=== PATIENT | female | born 1945 | race Caucasian/White ===

== ENCOUNTER 2020-08-13 00:29 | Inpatient (IN) | payer MEDICARE, OTHER, SELFPAY ==
[2020-08-13] VITALS (19 sets, daily range): BP systolic 115–136; BP diastolic 52–60; PULSE 71–91; RESP 15–18; TEMP 36.7–38.3; O2SAT 85–98; BMI 28.5; BMI 28.1
--- NOTE | 2020-08-13 00:45 | ED.RN ---
dr hendricks notified of pt sx on triage.
--- NOTE | 2020-08-13 00:51 | EKG12_ITS ---
Test Reason : SYNCOPE Blood Pressure : / mmHG Vent. Rate : 088 BPM Atrial Rate : 088 BPM P-R Int : 188 ms QRS Dur : 082 ms QT Int : 348 ms P-R-T Axes : 044 051 052 degrees QTc Int : 421 ms Normal sinus rhythm Normal ECG Confirmed by LISBETH HECTOR, TRELL ([id number]), video news editor GAVINO ZEPEDA ([id number]) on 08/18/2020 9:45:55 A M Referred By: JUANITA Confirmed By:JERILYN BOB MD
--- NOTE | 2020-08-13 00:52 | ED.VIS.GEN ---
History of Present Illness Chief Complaint: Syncope Informant: Patient Narrative: Patient with past medical history of hypertension cluster headaches presents with a syncopal episode. She stated she has been having some discomfort in her left trapezius paracervical neck since yesterday. She has been using Tylenol and also [place]. She took [place] tonight and felt nauseous and had dry heaves. She had lightheadedness and passed out in the bathroom for short period time lowered to the ground without injury to her head. She has had some dry heaves since. She is had a mild runny nose and cold symptoms for the last week including cough. No coronavirus testing or exposures. Denies any fevers or chills. She does feel weak. Chronic medical problems are only hypertension and cluster headaches. She has never had syncope before. Her only complaint right now is her left-sided neck discomfort she feels like aching throbbing. Past Medical History - Allergies and Home Meds Allergies/Adverse Reactions: Allergies No Known Allergies Allergy (Verified 08/13/20 00:29) Primary Care Physician: Sarah Rodríguez,Out of [NON-STAFF] - Prior records reviewed: Yes Past Medical History: - - Hypertension, cluster headaches Surgical History: - - Reviewed Lives: Spouse/ Significant Other Smoking Status: Former smoker Alcohol: None Drugs: None Review of Systems General: Denies: Chills, Fever, Sweats Eyes: Denies: Visual changes - bilaterally, Diplopia ENT: Denies: Rhinorrhea, Sore throat Cardiovascular: Denies: Chest pain, Palpitations Respiratory: Reports: Cough. Denies: Dyspnea, Dyspnea on exertion Gastrointestinal: Denies: Abdominal pain, Nausea, Vomiting, Diarrhea, Melena, Hematochezia Genitourinary: Denies: Dysuria, Hematuria, Frequency Musculoskeletal: Reports: Neck pain. Denies: Back pain, Extremity Pain Skin: Denies: Rash, Wounds Neurological: Reports: Weakness. Denies: Headache, Numbness Physical Exam Vital Signs/Narrative: Vital Signs Temp Pulse Resp BP Pulse Ox 08/13/20 00:30 100.4 F H 91 15 136/59 H 93 General: Well nourished, Well developed, No Acute Distress Head: Normocephalic, Atraumatic Eyes: Perrl, EOMI ENT: Moist mucous membranes, No rhinorrhea Neck: Supple, - - Mild pinpoint tenderness left mid paracervical. No spasm. Negative Brudzinski's or Kernig's. Normal range of motion of the neck without meningeal signs Cardiovascular: Regular rate, Regular rhythm, No murmurs Respiratory: No distress, CTA bilaterally, Chest nontender Abdomen: Soft, Nontender, Nondistended, Normal bowel sounds Back: Nontender, Normal Inspection Extremities: Nontender, No edema Skin: Normal color, No rash Neurological: Alert, Oriented x3, Cranial nerves II-XII grossly intact, Normal Strength, Normal Sensation Psychological: Normal affect, Normal Mood Diagnostic/Tx/Re-eval - Medical Decision Making Lab work and EKG obtained. Chest x-ray obtained. Patient given Zofran for nausea Tylenol for fever. Patient felt better after treatment. Pulse ox is 85% on room air. EKG showed normal sinus rhythm. Chest x-ray my interpretation shows shows interstitial pneumonitis consistent with coronavirus. Positive coronavirus testing antigen in the emergency department. Patient needs oxygen to keep her oxygen sats above 85%. She is not in respiratory distress on oxygen. EKG showed a rate of 88. No ischemic findings urinalysis shows a mixed picture with white cells epithelials and 2+ bacteria. Discussed with the hospitalist. Will await a urine culture result as this is likely contamination. We will hold off on antibiotics when she does have coronavirus. ED Disposition - Plan for ED Patient: Disposition: Acute Care Hospital [facility] Diagnosis: Coronavirus infection, Hypoxia, Syncope, Nausea and vomiting
[2020-08-13] MEDS: Ondansetron 4 MG/2 ML Vial IV (01:04)
[2020-08-13] MEDS: Acetaminophen 325 MG Tablet 650 MG PO ×2 (01:04→17:32)
[2020-08-13 01:20] LABS: Mucous, Urine 0 SEEN /hpf (<or=2+)
--- NOTE | 2020-08-13 01:20 | RAD_ITS ---
STUDY: X-RAY CHEST REASON FOR EXAM: Female, 75 years old. SYNCOPAL EPISODE THIS PM, NECK PAINS, CHILLS, N/v, fever TECHNIQUE: Single AP portable view of the chest. COMPARISON: None. FINDINGS: There are superimposed monitor leads. Mild left suprahilar and perihilar, right basilar hazy airspace opacification. Component of minimal airspace disease in the right upper lobe just superior to the minor fissure suspected. There is no demonstrated pleural abnormality. Normal size heart. Normal mediastinum and francine. Normal visualized pulmonary arteries. There is atherosclerotic calcification of the aortic arch with tortuosity. Age-appropriate thoracic spine. Normal visualized ribs, clavicles, and shoulders. There is no demonstrated abnormality of the visualized soft tissue structures of the upper abdomen. RAD/Chest 1 View (Portable) IMPRESSION: Bilateral hazy airspace disease possible pneumonia. Atypical or viral pneumonia possible such as covid 19. Follow-up examination to resolution recommended. Electronically Signed: Dionne Lockhart MD at 1:49 EST , Service support ,
[2020-08-13 01:22] LABS: ALB/GLOB Ratio 0.9 RATIO (0.9-2.4); AST(SGOT) 27 U/L (15-37); Alanine Aminotransfer ALT/SGPT 28 U/L (13-56); Albumin, Serum 3.4 g/dL (3.2-5.0); Alkaline Phosphatase 105 U/L (45-117); Anion Gap 7 (5-15); BUN 13 mg/dL (7-18); Chloride 104 mmol/L (98-107); Creatinine, Serum 0.81 mg/dL (0.55-1.02); EST Glomerular Filtration Rate 74 mL/min (>60); Est Glom Filt Rate - Afr Amer 89 mL/min (>60); Estimated Creatinine Clearance 60.15 ml/min; Globulin 3.6 g/dL (2.2-4.2); Glucose 130 mg/dL (74-106); Potassium 3.6 mmol/L (3.5-5.1); Sodium Level 136 mmol/L (136-145)
[2020-08-13 01:32] LABS: Color, Urine Yellow (Yellow); Glucose, Dipstick NEGATIVE (Normal); Ketone-Dipstick Negative (Negative); Leukocyte Esterase-Dipstick 500 /ul (Negative); Nitrite-Dipstick Negative (Negative); Occult Blood-Urine 10 /ul (Negative); Protein-Dipstick 30 mg/dl (Negative); Urine Bilirubin Dipstick Negative (Negative); Urine Clarity Clear (Clear); Urine Urobilinogen Normal (Normal)
[2020-08-13 01:33] LABS: Red Blood Cells-Urine 0-5 SEEN /hpf (0-5); Squamous Epithelial Cells - UA 5-10 SEEN /hpf (5-10); White Blood Cells 5-10 SEEN /hpf (0-5)
[2020-08-13 01:34] LABS: Bacteria 2+ /hpf (None Seen); Transitional Epithelial - Ur 0-5 SEEN /hpf (0-5)
[2020-08-13 01:35] LABS: Amorphous Sediment RARE; Fine Granular Cast- Urine 0-5 SEEN /lpf (0-5)
--- NOTE | 2020-08-13 02:55 | HP.PCM_ITS ---
Problem List (1) Coronavirus infection Status: Acute (2) Hypoxia Status: Acute (3) Syncope Status: Acute History of Present Illness Date of Admission: 08/13/20 Chief Complaint: Syncope The patient is a 75 year old F with a significant history of hypertension; GERD; and hyperlipidemia who presents to the emergency department with syncope. Her symptoms started few hours before presentation. On 08/12/2020 patient had progressively worsening left posterior neck pain all day. She described the pain as muscle spasms. She took 2 tablets of a previously prescribed Macclenny. The Macclenny was previously prescribed for hip pain. After 2 and half hours time of taking the 2 tablets of [place] her pain was still not getting better. She went to the bathroom to get some water to take an additional dose of the [place]cl[place]. While at the bathroom she had nausea and dry heaves. She lost consciousness and she was about to fall. However her who was also present at the bathroom caught her and lowered patient to the floor. She report that 3 days ago; and on the day before presentation she had chills. Also her home temperature was about 99.5 Fahrenheit. She denies shortness of breath. She has a wet cough but she is unable to expectorate her sputum. She has poor appetite and she feels extremely fatigued. She denies lost of taste or lost of smell. Together with her patient had cold-like symptoms a few days ago which has resolved. Also she had all day nasal drainage a few days and that has also resolved. 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 She denies known contact with anybody with COVID-19 virus. She reported she and her has been extremely careful in avoiding the COVID-19 virus. Past Medical History Medical History: Medical History (Last Reviewed 08/13/20 @ 03:[address] Favio Coffman MD) GERD (gastroesophageal reflux disease) K21.9 Hyperlipidemia E78.5 Hypertension I10 Allergies No Known Allergies Allergy (Verified 08/13/20 00:29) Home Medications: Ambulatory Orders Medication Instructions Recorded Atorvastatin Calcium mg PO 08/13/20 Hydrocodone/Acetaminophen 1 - 2 ea PO Q6H PRN 08/13/20 [Hydrocodon-Acetaminophen 5-325] Metoprolol(XL)Succ [Toprol Xl 45 mg PO DAILY 08/13/20 (Beta Naz)] Omeprazole [Prilosec] 10 mg PO DAILY 08/13/20 Surgical History: - - Right hip replacement Lives: Spouse/ Significant Other Smoking Status: Former smoker Tobacco Use: Cigarettes Alcohol: None Drugs: None - *Family History Maternal History Items: Heart Disease, Pulmonary Disease Paternal History Items: Heart Disease Review of Systems Constitutional: Reports: Chills, Fever, Fatigue. Denies: Weight Change HEENT: Reports: Sinus Drainage. Denies: Head Aches Cardiovascular: Reports: Syncope. Denies: Chest Pain, Palpitations Respiratory: Reports: Cough, Sputum production. Denies: Shortness of breath at rest Gastrointestinal: Reports: Constipation. Denies: Abdominal Pain, Nausea, Vomiting Genitourinary: Denies: Dysuria Musculoskeletal: Denies: Joint Pain, Joint Tenderness Skin: Denies: Rash, Wounds Neurological: Denies: Numbness, Tingling, Focal weakness Psychiatric: Denies: Anxiety, Depression, Homicidal Ideations, Suicidal Ideations Hematologic/ Lymphatic: Denies: Easy Bruising, Easy Bleeding VTE Information - Inpt Only VTE Present on Admission: No VTE Mechan Device Prophylaxis: None VTE Pharm Prophylaxis ordered?: Yes Patient Problems: Active and Suspected Problems (Last Reviewed 08/13/20 @ 03:[address] Favio Coffman MD) Coronavirus infection (Acute) Hypoxia (Acute) Syncope (Acute) - Physical Exam Vitals/I&O's: Vital Signs Temp Pulse Resp BP Pulse Ox 100.4 F H 88 16 115/52 L 98 08/13/20 00:30 08/13/20 01:45 08/13/20 01:45 08/13/20 01:45 08/13/20 01:45 Oxygen Flow Rate (L/min) 2 Oxygen Delivery Method Nasal Cannula Weight: 82.8 kg Body Mass Index (BMI) 28.5 General: Alert, Oriented x3, Cooperative HEENT: Atraumatic, PERRLA, EOMI, Normocephalic Neck: Supple, No JVD, Negative Carotid Bruits Lungs: No rhonchi, No wheeze, No rales, Diminished Cardiovascular: Regular rate, Regular Rhythm, Normal S1, Normal S2, No murmurs Abdomen: Bowel Sounds Present, Soft, Non Tender Extremities: No edema, Capillary Refill Less than 3 Seconds Skin: No rashes, No breakdown Musculoskeletal: No Tenderness to Palpation of Joints or Extremities Neurological: Cranial nerves II-XII grossly intact Psych/Mental Status: Normal Affect, Appropriate Microbiology Past 72 Hours 08/13/20 01:00 Mucosa - Nose SARS-CoV-2 Antigen (Rapid) - Final SARS-CoV-2 (COVID 19) Laboratory Results 08/13/20 00:40: Sodium 136, Potassium 3.6, Chloride 104, Carbon Dioxide 25.0, Anion Gap 7, BUN 13, Creatinine 0.81, Estim Creat Clear Calc 60.15, Est GFR (MDRD) Af Amer 89, Est GFR (MDRD) Non-Af 74, BUN/Creatinine Ratio 16.0, Glucose 130 H, Calcium 8.0 L, Total Bilirubin 0.40, AST 27, ALT 28, Alkaline Phosphatase 105, Troponin I < 0.015, Total Protein 7.0, Albumin 3.4, Globulin 3.6, Albumin/Globulin Ratio 0.9 08/13/20 01:15: Urine Color Yellow, Urine Clarity Clear, Urine pH 5.0, Ur Specific Brothers 1.020, Urine Protein 30 H, Urine Glucose (UA) NEGATIVE, Urine Ketones Negative, Urine Occult Blood 10 H, Urine Nitrite Negative, Urine Bilirubin Negative, Urine Urobilinogen Normal, Ur Leukocyte Esterase 500 H, Urine RBC 0-5 SEEN, Urine WBC 5-10 SEEN, Ur Squamous Epith Cells 5-10 SEEN, Ur Transition Epith Cell 0-5 SEEN, Amorphous Sediment RARE, Urine Bacteria 2+, Fine Granular Casts 0-5 SEEN, Urine Mucus 0 SEEN Assessment/Plan All Active Problems (Last Reviewed 08/13/20 @ 03:[address] Favio Coffman MD) Coronavirus infection (Acute) Hypoxia (Acute) Syncope (Acute) The patient is a 75 year old F with a significant history of hypertension; gout; and hyperlipidemia who presents emergency department with syncope and was found to have a positive. COVID-19 antigen test sent and with radiographic evidence of bilateral hazy airspace disease; and with hypoxia requiring supplemental oxygenation. Acute hypoxemic respiratory insufficiency secondary to SARS- COV 2 Her oxygen saturation was 85% % on room air at the emergency department. Patient required 2L of nasal cannula oxygen. Oxygen supplementation continued. Her temperature at the emergency department was 100.4 Fahrenheit Rapid coronavirus antigen test at the ED was positive. Impression of chest x-ray by radiologist: Bilateral hazy airspace disease possible pneumonia. Atypical or viral pneumonia possible such as COVID-19. Actual chest x-ray image was independently interpreted. I agree radiologist interpretation. Dimer was ordered Procalcitonin was ordered Discussed with patient that dexamethasone p.o. will be ordered and also she will be started on remdesivir. Her liver enzyme is normal. Creatinine clearance is normal. Discussed adverse effects of medication with patient. Tylenol for fever Patient does not think that she would need cough medicine at this time. Syncope EKG showed sinus rhythm with no ST or T wave abnormality. Likely secondary to COVID-19. Treatment as above. Abnormal urinalysis Patient with no urinary symptoms. However her urinary protein and leukocyte Estrace was elevated. Urine bacteria of 2+ but with significant squamous epithelial cells. Urine culture ordered at emergency department; follow. No antibiotics for now. Neck muscle spasms Flexeril as needed ordered. Discussed with patient that Flexeril can make her lethargic. Hold Macclenny at this time. Of note patient tried ice packs and heating pad at home with no relief. Chronic constipation Reports recent colonoscopy with a possible diagnosis of Crohn's disease even though she has constipation and notes diarrhea. Patient takes multiple bowel regimen at home which includes schedule Metamucil; other bowel regimen; and as needed MiraLAX. Shared decision to continue home Metamucil; as needed MiraLAX; and as needed Senokot-S ordered. Hypertension Blood pressure is stable in regards to her age Metoprolol continue Trend blood pressure and adjust blood pressure medications. GERD PPI continued. DVT prophylaxis Subcutaneous Lovenox. Inpatient E&M: 17495 Init Hosp L3
[2020-08-13 03:58] LABS: D-Dimer Quantitative (DVT/PE) 0.47 FEU/ug/m (0.27-0.49)
[2020-08-13 04:16] LABS: Procalcitonin < 0.04 ng/mL (0.00-0.09)
[2020-08-13] MEDS: dexAMETHasone 4 MG Tablet 6 MG PO (04:21)
[2020-08-13] MEDS: 0.9% Saline Lock 10 ML Syringe IV (04:24)
--- NOTE | 2020-08-13 07:28 | PCM.HOSP.N ---
Hospitalist Note Seen and examined The patient is a 75 year old F with a significant history of hypertension; gout; and hyperlipidemia who presents emergency department with syncope and was found to have a positive. COVID-19 antigen test sent and with radiographic evidence of bilateral hazy airspace disease; and with hypoxia requiring supplemental oxygenation. Patient states he took 2 tablets of [place] and after 2 and half hours he passed out. She had similar instance of syncope about 5 years ago after she had a flu infection. She states he has loss of taste and smell. Denies fall with her caught her. She had mild fever and chills 3 days ago along with cough. Lungs: Air entry diminished bilaterally. No crepitation or rhonchi Heart: S1-S2 regular. No murmur gallop or rub. Extremities: No ankle edema. 1. COVID-19 infection with acute hypoxic respiratory insufficiency Discussed with ID. Started on remdesivir. Chest x-ray shows bilateral hazy airspace disease possible viral pneumonia. Procalcitonin negative. LDH and CRP are elevated. Troponin negative. Lactic acid normal. 2. Syncope probably secondary to infection/COVID-19 pneumonia: Patient does not have any chronic cardiopulmonary disease. Patient quit smoking about 30 years ago. EKG sinus rhythm with no significant ST-T wave abnormality. Orthostatic vitals are negative for postural hypotension or tachycardia. 3.: Patient denies lower related symptoms including dysuria. LE 500. WBC 5-10 cells. Asymptomatic bacteriuria. No indication for antibiotic.
--- NOTE | 2020-08-13 07:34 | PCS.PANDOC ---
PANDEMIC DOCUMENTATION INITIATED: Date: 08/13/20 Time: 0300
[2020-08-13] MEDS: Enoxaparin 30 MG/0.3 ML Syringe SC ×2 (09:11→23:06)
[2020-08-13] MEDS: Psyllium 1 PACKET PO (09:11)
[2020-08-13] MEDS: Pantoprazole Sodium 40 MG Tablet PO (09:11)
[2020-08-13] MEDS: Metoprolol(XL)Succ 50 MG Tablet PO (09:11)
[2020-08-13] MEDS: cycloBENZAPRine HCl 5 MG TABLET PO ×2 (10:36→23:59)
[2020-08-13 11:10] LABS: LDH 334 U/L (84-246); Magnesium 2.1 mg/dL (1.6-2.6)
[2020-08-13 11:24] LABS: BNP,B-Type NATRIURETIC PEPTIDE 22.6 pg/mL (0-100)
--- NOTE | 2020-08-13 11:25 | CASEMGMT ---
SHI WILLIAM attempted to call patient in room for initial transition planning/care coordination assessment, no answer, tried patient's cell phone and Timbo answered. SHI WILLIAM introduced self and role at [facility]. Timbo willing to participate in assessment and is able to answer all questions appropriately. Care providers, pharmacy, and demographics verified. Timbo wishes to discharge home, denies need for home health at this time. states he has no further needs or concerns at this time. CM to follow for discharge planning needs that may arise. PCP: Arabella Veras Specialists: Rukhsana Campos, paradise Preferred [facility]acy: [facility] Insurance: MCR, Prescription Benefit: yes Living Will/HPOA: yes, Timbo Terry LNOK: Living Arrangements: Patient lives with in a 2 story home with bed and bath on first floor. Patient independent at home. Transportation: DME/HHC: Patient has shower chair, cane, walker, raised toilet, and grab bars at home. No previous HHC. No preference for DME Disposition Plan: Patient to discharge home with family support and follow-up plans in place. Hilda CASSIDY, RN, CM
[2020-08-13 11:48] LABS: International Normalized Ratio 1.1; Prothrombin Time (Protime)PT. 13.3 SECONDS (11.7-14.9)
[2020-08-13 11:52] LABS: Fibrinogen 450 mg/dl (203-444); Lactic Acid 1.8 mmol/L (0.4-1.9)
--- NOTE | 2020-08-13 12:04 | CASEMGMT ---
Green sheet on chart for possible home oxygen need at this time. Oseas OSULLIVAN CM
[2020-08-13] MEDS: Lactated Ringers 1,000 ML 100 ML IV ×2 (12:44→23:06)
--- NOTE | 2020-08-13 16:22 | CON.PCM_ITS ---
Problem List (1) Coronavirus infection Status: Acute Reason for Consult: covid Consulted by: Dr. Rios History of Present Illness: The patient is a 75 year old F with sx starting around 08/11 with cough, congestion, then 08/13 had severe chills, then neck pain, change in taste, weakness, fatigue, not feeling well. Was in bathroom, had syncope, caught by her . Taken to ED, covid (+), started on dex, remdesivir. with recent URI, otherwise feeling ok. Full ROS performed and neg except as noted above. - Medical History Surgical History: reviewed Allergies/Adverse Reactions: Allergies No Known Allergies Allergy (Verified 08/13/20 00:29) Home Medications: Ambulatory Orders Medication Instructions Recorded Atorvastatin Calcium 40 mg PO DAILY 08/13/20 Hydrocodone/Acetaminophen 1 - 2 ea PO Q6H PRN 08/13/20 [Hydrocodon-Acetaminophen 5-325] Metoprolol(XL)Succ [Toprol Xl 45 mg PO DAILY 08/13/20 (Beta Naz)] Omeprazole [Prilosec] 10 mg PO DAILY 08/13/20 - Social History Lives: with Tobacco Use: non-smoker Vital Signs Temp Pulse Resp BP Pulse Ox 98.4 F 91 18 129/55 H 96 08/13/20 12:45 08/13/20 14:59 08/13/20 12:45 08/13/20 12:45 08/13/20 12:45 Oxygen Flow Rate (L/min) 2 Oxygen Delivery Method Room Air Weight: 81.5 kg Body Mass Index (BMI) 28.1 Orthostatic Vital Signs Start: 08/13/20 12:37 Freq: q24h Status: Active Protocol: Activity Type Activity Date Activity User E-Sign Co-Sign Detail Recorded Client Recorded Date Recorded By Document 08/13/20 12:37 AMG [id number] 08/13/20 12:44 AMG 08/13/20 12:37 Orthostatic Vitals Standing -Blood Pressure (90/60-120/80) 130/60 H -Extremity Use Right Arm -Pulse Rate (60-100) 88 Sitting -Blood Pressure (90/60-120/80) 129/55 H -Extremity Use Right Arm -Pulse Rate (60-100) 83 Lying -Blood Pressure (90/60-120/80) 126/57 H -Extremity Use Right Arm -Pulse Rate (60-100) 77 Microbiology Past 72 Hours 08/13/20 01:00 SARS-CoV-2 Antigen (Rapid) - Final Mucosa - Nose SARS-CoV-2 (COVID 19) Laboratory Tests Past 24 Hrs 08/13/20 08/13/20 08/13/20 00:40 00:40 00:40 PT INR Fibrinogen D-Dimer Quant (PE/DVT) 0.47 Sodium 136 Potassium 3.6 Chloride 104 Carbon Dioxide 25.0 Anion Gap 7 BUN 13 Creatinine 0.81 Estim Creat Clear Calc 60.15 Est GFR (MDRD) Af Amer 89 Est GFR (MDRD) Non-Af 74 BUN/Creatinine Ratio 16.0 Glucose 130 H Lactic Acid Calcium 8.0 L Magnesium Total Bilirubin 0.40 AST 27 ALT 28 Alkaline Phosphatase 105 Lactate Dehydrogenase Troponin I < 0.015 C-React Prot Ext Range B-Natriuretic Peptide Total Protein 7.0 Albumin 3.4 Globulin 3.6 Albumin/Globulin Ratio 0.9 Procalcitonin < 0.04 Urine Color Urine Clarity Urine pH Ur Specific [place] Urine Protein Urine Glucose (UA) Urine Ketones Urine Occult Blood Urine Nitrite Urine Bilirubin Urine Urobilinogen Ur Leukocyte Esterase Urine RBC Urine WBC Ur Squamous Epith Cells Ur Transition Epith Cell Amorphous Sediment Urine Bacteria Fine Granular Casts Urine Mucus 08/13/20 08/13/20 08/13/20 00:40 00:40 01:15 PT INR Fibrinogen D-Dimer Quant (PE/DVT) Sodium Potassium Chloride Carbon Dioxide Anion Gap BUN Creatinine Estim Creat Clear Calc Est GFR (MDRD) Af Amer Est GFR (MDRD) Non-Af BUN/Creatinine Ratio Glucose Lactic Acid Calcium Magnesium 2.1 Total Bilirubin AST ALT Alkaline Phosphatase Lactate Dehydrogenase 334 H Troponin I C-React Prot Ext Range 43.10 H B-Natriuretic Peptide 22.6 Total Protein Albumin Globulin Albumin/Globulin Ratio Procalcitonin Urine Color Yellow Urine Clarity Clear Urine pH 5.0 Ur Specific [place] 1.020 Urine Protein 30 H Urine Glucose (UA) NEGATIVE Urine Ketones Negative Urine Occult Blood 10 H Urine Nitrite Negative Urine Bilirubin Negative Urine Urobilinogen Normal Ur Leukocyte Esterase 500 H Urine RBC 0-5 SEEN Urine WBC 5-10 SEEN Ur Squamous Epith Cells 5-10 SEEN Ur Transition Epith Cell 0-5 SEEN Amorphous Sediment RARE Urine Bacteria 2+ Fine Granular Casts 0-5 SEEN Urine Mucus 0 SEEN 08/13/20 08/13/20 11:20 11:20 PT 13.3 INR 1.1 Fibrinogen 450 H D-Dimer Quant (PE/DVT) Sodium Potassium Chloride Carbon Dioxide Anion Gap BUN Creatinine Estim Creat Clear Calc Est GFR (MDRD) Af Amer Est GFR (MDRD) Non-Af BUN/Creatinine Ratio Glucose Lactic Acid 1.8 Calcium Magnesium Total Bilirubin AST ALT Alkaline Phosphatase Lactate Dehydrogenase Troponin I C-React Prot Ext Range B-Natriuretic Peptide Total Protein Albumin Globulin Albumin/Globulin Ratio Procalcitonin Urine Color Urine Clarity Urine pH Ur Specific [place] Urine Protein Urine Glucose (UA) Urine Ketones Urine Occult Blood Urine Nitrite Urine Bilirubin Urine Urobilinogen Ur Leukocyte Esterase Urine RBC Urine WBC Ur Squamous Epith Cells Ur Transition Epith Cell Amorphous Sediment Urine Bacteria Fine Granular Casts Urine Mucus - Other Studies Radiology: [] reviewed Other Studies: [] Route of nutrition/ use of supplements: [] Nutritional Intake: [] IV Site: [] Lake Catheter: [] - Physical Exam General: Alert, Oriented x3, Cooperative, No apparent distress HEENT: Atraumatic, PERRLA, EOMI Neck: Supple, No Nodes Lungs: Diminished Cardiovascular: Regular rate, Regular Rhythm Abdomen: Soft, Non Tender, Non-Distended Extremities: No edema Skin: No rashes IV Site: Peripheral, without redness Musculoskeletal: No Tenderness to Palpation of Joints or Extremities Neurological: Cranial nerves II-XII grossly intact - Assessment/Plan Antibiotics: [] Assessment/Plan: [] Active and Suspected Problems (Last Reviewed 08/13/20 @ 03:[address] Favio Coffman MD) Coronavirus infection (Acute) Hypoxia (Acute) Syncope (Acute) covid with hypoxia - on dex, remdesivir, lovenox 30mg bid. D-dimer was normal. Sx started approx 08/11. should quarantine and be tested. Will follow, thank you
[2020-08-13] MEDS: MELATONIN 3 MG TABLET PO (23:59)
[2020-08-14] VITALS (13 sets, daily range): BP systolic 110–118; BP diastolic 51–56; PULSE 51–87; RESP 15–18; TEMP 36.6–37.2; O2SAT 92–96
[2020-08-14 07:08] LABS: Hematocrit 34.4 % (37-47); Hemoglobin 11.1 g/dL (12.0-15.0); Mean Corp Hgb Conc 32.3 g/dL (32-36); Mean Corpuscular Hgb 28.9 pg (27.0-32.0); Mean Corpuscular Volume 89.6 fL (81-99); Mean Platelet Vol. 10.1 fl (6.2-12.0); Platelet Count 123 K/mm3 (150-450); RBC Distribution Width CV 12.8 % (11.6-14.6); Red Blood Count 3.84 M/mm3 (4.2-5.4); White Blood Count 3.8 K/mm3 (4.4-11.0)
[2020-08-14 07:28] LABS: ALB/GLOB Ratio 0.9 RATIO (0.9-2.4); AST(SGOT) 19 U/L (15-37); Alanine Aminotransfer ALT/SGPT 22 U/L (13-56); Albumin, Serum 2.8 g/dL (3.2-5.0); Alkaline Phosphatase 79 U/L (45-117); Anion Gap 5 (5-15); BUN 16 mg/dL (7-18); BUN/Creat Ratio 22.3 RATIO (10-20); Calcium,Total 7.7 mg/dL (8.5-10.1); Chloride 106 mmol/L (98-107); Creatinine, Serum 0.72 mg/dL (0.55-1.02); EST Glomerular Filtration Rate 85 mL/min (>60); Est Glom Filt Rate - Afr Amer 103 mL/min (>60); Estimated Creatinine Clearance 48.72 ml/min; Globulin 3.1 g/dL (2.2-4.2); Glucose 82 mg/dL (74-106); Potassium 3.3 mmol/L (3.5-5.1); Protein, Total 5.9 g/dL (6.4-8.2); Sodium Level 140 mmol/L (136-145)
[2020-08-14] MEDS: Metoprolol(XL)Succ 50 MG Tablet PO (09:19)
[2020-08-14] MEDS: Pantoprazole Sodium 40 MG Tablet PO (09:19)
[2020-08-14] MEDS: Enoxaparin 30 MG/0.3 ML Syringe SC ×2 (09:19→23:23)
[2020-08-14] MEDS: Acetaminophen 325 MG Tablet 650 MG PO ×3 (09:20→23:23)
[2020-08-14] MEDS: dexAMETHasone 4 MG Tablet 6 MG PO (09:21)
[2020-08-14] MEDS: Albuterol Sulfate 8 gm Inhaler (60 puffs) 2 PUFF INHALATION (09:22)
[2020-08-14] MEDS: Psyllium 1 PACKET PO (09:22)
--- NOTE | 2020-08-14 14:59 | PN_ITS ---
Patient Problems: Active and Suspected Problems (Last Reviewed 08/13/20 @ 03:[address] Favio Coffman MD) Coronavirus infection (Acute) Hypoxia (Acute) Syncope (Acute) Reason for Visit: Follow-up for COVID-19 infection along with heartburn, nausea. Objective: Patient complain of nausea but no vomiting. Mild heartburn. Her main complaint is neck pain mainly left-sided from mid cervical region with radiation to left shoulder. Never had MRI or evaluation by spine surgeon in the past. Physical exam General: Alert, Oriented x3, Cooperative HEENT: Atraumatic, PERRLA, EOMI, Normocephalic Oral: No Gingival or Mucosal Lesions/ Ulcerations Neck: Mild tenderness and stiffness in cervical spine on left side. No JVD, Negative Carotid Bruits Lungs: Air entry equal in bilateral lung bases. No crepitation/rhonchi. No hypoxia or tachypnea Cardiovascular: Regular rate, Regular Rhythm, Normal S1, Normal S2, No murmurs Abdomen: Bowel Sounds Present, Soft, Non Tender, Non-Distended : No renal angle tenderness. No suprapubic tenderness. Extremities: No edema, Capillary Refill Less than 3 Seconds Skin: No rashes, No breakdown Musculoskeletal: No Tenderness to Palpation of Joints or Extremities Neurological: Cranial nerves II-XII grossly intact, Deep Tendon Reflexes 2+/4 and Symmetrical, Neuro grossly intact Psych/Mental Status: Normal Affect, Appropriate. Vitals/I&O's: Vital Signs Temp Pulse Resp BP Pulse Ox 97.9 F 67 17 116/56 L 94 08/14/20 14:56 08/14/20 14:56 08/14/20 14:56 08/14/20 14:56 08/14/20 14:56 Oxygen Flow Rate (L/min) 2 Oxygen Delivery Method Room Air Weight: 179 lb 10.828 oz Body Mass Index (BMI) 28.1 Orthostatic Vital Signs Start: 08/13/20 12:37 Freq: q24h Status: Active Protocol: Activity Type Activity Date Activity User E-Sign Co-Sign Detail Recorded Client Recorded Date Recorded By Document 08/13/20 12:37 AMG [id number] 08/13/20 12:44 AMG 08/13/20 12:37 Orthostatic Vitals Standing -Blood Pressure (90/60-120/80) 130/60 H -Extremity Use Right Arm -Pulse Rate (60-100) 88 Sitting -Blood Pressure (90/60-120/80) 129/55 H -Extremity Use Right Arm -Pulse Rate (60-100) 83 Lying -Blood Pressure (90/60-120/80) 126/57 H -Extremity Use Right Arm -Pulse Rate (60-100) 77 Intake and Output for Last 24 Hours 08/12/20 08/13/20 08/14/20 23:59 23:59 23:59 Intake Total 2590 / 2740 2170 / 2170 Balance 2590 / 2740 2170 / 2170 Microbiology Past 72 Hours 08/13/20 16:00 Urine, Clean Catch Urine Culture - Preliminary Streptococcus group B 08/13/20 01:00 Mucosa - Nose SARS-CoV-2 Antigen (Rapid) - Final SARS-CoV-2 (COVID 19) Laboratory Results 08/14/20 06:22: WBC 3.8 L, RBC 3.84 L, Hgb 11.1 L, Hct 34.4 L, MCV 89.6, MCH 28.9, MCHC 32.3, RDW Std Deviation 42.0, RDW Coeff of [place] 12.8, Plt Count 123 L, MPV 10.1 08/14/20 06:22: Sodium 140, Potassium 3.3 L, Chloride 106, Carbon Dioxide 29.0, Anion Gap 5, BUN 16, Creatinine 0.72, Estim Creat Clear Calc 48.72, Est GFR (MDRD) Af Amer 103, Est GFR (MDRD) Non-Af 85, BUN/Creatinine Ratio 22.3 H, Glucose 82, Calcium 7.7 L, Total Bilirubin 0.30, AST 19, ALT 22, Alkaline Phosphatase 79, Total Protein 5.9 L, Albumin 2.8 L, Globulin 3.1, Albumin/Globulin Ratio 0.9 Current Medications Acetaminophen (Acetaminophen 325 Mg Tablet) 650 mg PO Q6H PRN PRN PRN Reason: Pain Score 1-10/Temp > 100.7 F Last Admin: 08/14/20 09:20 Dose: 650 mg Documented by: Albuterol Sulfate (Albuterol Sulfate 8 Gm Inhaler (60 Puffs)) 2 puff INHALATION Q4H PRN PRN PRN Reason: SHORTNESS OF BREATH Last Admin: 08/14/20 09:22 Dose: 2 puff Documented by: Cyclobenzaprine HCl (Cyclobenzaprine Hcl 5 Mg Tablet) 5 mg PO TID PRN PRN PRN Reason: Neck muscle spasm Last Admin: 08/13/20 23:59 Dose: 5 mg Documented by: Dexamethasone (Dexamethasone 4 Mg Tablet) 6 mg PO DAILY [facility] Stop: 08/21/20 10:01 Last Admin: 08/14/20 09:21 Dose: 6 mg Documented by: Enoxaparin Sodium (Enoxaparin 30 Mg/0.3 Ml Syringe) 30 mg SC BID [facility] Last Admin: 08/14/20 09:19 Dose: 30 mg Documented by: Remdesivir 100 mg/ Sodium (Chloride) 250 mls @ 125 mls/hr IV Q24H [facility] Stop: 08/16/20 23:59 Last Infusion: 08/14/20 01:30 Dose: Infused Documented by: Ceftriaxone Sodium (Rocephin) 1 gm in 50 mls @ 100 mls/hr IV Q24 [facility] Melatonin (Melatonin 3 Mg Tablet) 3 mg PO QHS PRN PRN PRN Reason: INSOMNIA Last Admin: 08/13/20 23:59 Dose: 3 mg Documented by: Metoprolol Succinate (Metoprolol(Xl)Succ 50 Mg Tablet) 50 mg PO DAILY [facility] Last Admin: 08/14/20 09:19 Dose: 50 mg Documented by: Ondansetron HCl (Ondansetron 4 Mg/2 Ml Vial) 4 mg IV Q8H PRN PRN PRN Reason: NAUSEA/VOMITING Pantoprazole Sodium (Pantoprazole Sodium 40 Mg Tablet) 40 mg PO DAILY [facility] Last Admin: 08/14/20 09:19 Dose: 40 mg Documented by: Polyethylene Glycol (Polyethylene Glycol 3350 17 Gm Packet) 17 gm PO DAILY PRN PRN PRN Reason: Constipation Potassium Chloride (Potassium Chloride 20 Meq Tablet) 40 meq PO DAILY [facility] Last Admin: 08/14/20 09:20 Dose: 40 meq Documented by: Psyllium Hydrophilic Mucilloid (Psyllium 1 Packet) 1 packet PO DAILY [facility] Last Admin: 08/14/20 09:22 Dose: 1 packet Documented by: Senna/Docusate Sodium (Senna/Docusate Sodium 1 Tablet) 1 tablet PO DAILY PRN PRN PRN Reason: CONSTIPATION Sodium Chloride (0.9% Saline Lock 10 Ml Syringe) 10 - 40 ml IV UD PRN PRN Reason: SALINE FLUSH Last Admin: 08/13/20 04:24 Dose: 10 ml Documented by: STROKE Vital Signs/Narrative: Vital Signs Temp Pulse Resp BP Pulse Ox 08/14/20 14:56 97.9 F 67 17 116/56 L 94 08/14/20 11:58 75 Medical Necessity - Tobacco Use Smoking Status: Former smoker Tobacco Use: Cigarettes Assessment/Plan All Active Problems (Last Reviewed 08/13/20 @ 03:[address] Favio Coffman MD) Coronavirus infection (Acute) Hypoxia (Acute) Syncope (Acute) The patient is a 75 year old F with a significant history of hypertension; gout; and hyperlipidemia who was admitted in PCU with syncope and was found to have a positive. COVID-19 antigen test sent and with radiographic evidence of bilateral hazy airspace disease; and with hypoxia requiring supplemental oxygenation. Patient states he took 2 tablets of [place] and after 2 and half hours he passed out. She had similar instance of syncope about 5 years ago after she had a flu infection. She states he has loss of taste and smell. Denies fall with her caught her. She had mild fever and chills 3 days ago along with cough. 1. COVID-19 bilateral pneumonia with acute hypoxic respiratory insufficiency: Discussed with ID. Started on remdesivir. Chest x-ray shows bilateral hazy airspace disease consistent with viral pneumonia. Procalcitonin negative. LDH and CRP are elevated. Troponin negative. Lactic acid normal. 2. Syncope probably secondary to infection/COVID-19 pneumonia: Patient does not have any chronic cardiopulmonary disease. Patient quit smoking about 30 years ago. EKG sinus rhythm with no significant ST-T wave abnormality. Orthostatic vitals are negative for postural hypotension or tachycardia. 3. Streptococcus group B colonization/partially treated UTI: Patient denies lower related symptoms including dysuria. LE 500. WBC 5-10 cells. Urine culture shows Streptococcus group B 11,000 25,000 colonies. Started on ceftriaxone 1 g daily. 4. Left cervical pain most likely left cervical radiculopathy/disc degeneration: On pain medication. On Zanaflex. OT consult. 5. Hypertension blood pressure is controlled 6. GERD: PPI 7. Chronic constipation: She had his morning bowel movement. VTE prophylaxis: On Lovenox.
[2020-08-14] MEDS: 0.9% Saline Lock 10 ML Syringe IV ×2 (16:36→23:25)
[2020-08-14] MEDS: Ceftriaxone 1 GM/50 ML BAG IV (16:37)
[2020-08-14] MEDS: MELATONIN 3 MG TABLET PO (23:23)
[2020-08-14] MEDS: tiZANidine HCl 2 MG Tablet 4 MG PO (23:23)
[2020-08-15] VITALS (9 sets, daily range): BP systolic 118–134; BP diastolic 44–56; PULSE 46–61; RESP 15; TEMP 36.4–36.6; O2SAT 94–98
[2020-08-15 04:19] LABS: Hematocrit 31.6 % (37-47); Hemoglobin 10.3 g/dL (12.0-15.0); Mean Corp Hgb Conc 32.6 g/dL (32-36); Mean Corpuscular Hgb 29.3 pg (27.0-32.0); Platelet Count 116 K/mm3 (150-450); RBC Distribution Width CV 12.9 % (11.6-14.6); RBC Distribution Width SD 42.9 fl (35.1-43.9); Red Blood Count 3.51 M/mm3 (4.2-5.4)
[2020-08-15 04:38] LABS: ALB/GLOB Ratio 0.9 RATIO (0.9-2.4); AST(SGOT) 13 U/L (15-37); Alanine Aminotransfer ALT/SGPT 22 U/L (13-56); Albumin, Serum 2.7 g/dL (3.2-5.0); Alkaline Phosphatase 73 U/L (45-117); Anion Gap 6 (5-15); BUN 19 mg/dL (7-18); BUN/Creat Ratio 32.4 RATIO (10-20); Calcium,Total 7.7 mg/dL (8.5-10.1); Chloride 108 mmol/L (98-107); Creatinine, Serum 0.59 mg/dL (0.55-1.02); EST Glomerular Filtration Rate 107 mL/min (>60); Est Glom Filt Rate - Afr Amer 130 mL/min (>60); Estimated Creatinine Clearance 48.72 ml/min; Glucose 120 mg/dL (74-106); Potassium 3.9 mmol/L (3.5-5.1); Protein, Total 5.7 g/dL (6.4-8.2); Sodium Level 140 mmol/L (136-145)
[2020-08-15] MEDS: dexAMETHasone 4 MG Tablet 6 MG PO (08:18)
[2020-08-15] MEDS: Pantoprazole Sodium 40 MG Tablet PO (08:19)
[2020-08-15] MEDS: Enoxaparin 30 MG/0.3 ML Syringe SC (08:20)
[2020-08-15] MEDS: Psyllium 1 PACKET PO (08:20)
--- NOTE | 2020-08-15 09:31 | DCINST_ITS ---
- Discharge Diagnoses Current Active Problems: Current Active and Chronic Problems (Last Reviewed 08/13/20 @ 03:[address] Favio Coffman MD) Coronavirus infection (Acute) Hypoxia (Acute) Syncope (Acute) You will use the following diet at home:: Cardiac Your food should be the consistency of: Regular Discharge Activity: May Not Drive - in quarantine Weight Bearing Status: Weight bearing as tolerated Call your doctor if you observe: Fever of 101 or Higher, Coldness, Increased Pain, Numbness or Tingling, Change in Color, Inability to urinate, Inability to have a bowel movement, Using more than one pad per hour, Shortness of breath, Dizziness, Fainting spells, Swelling in the ankles, Prolonged hiccoughing, Increased palpitations (irregular heartbeat) Additional Dressing/Incision Instructions:: Quarantine for 8 more days. Total 14 days on the day of onset of symptoms until 08-23-2020 Allergies/Adverse Reactions: Allergies No Known Allergies Allergy (Verified 08/13/20 00:29) Medications to take at Discharge Atorvastatin Calcium 40 mg PO DAILY 08/13/20 Hydrocodone/Acetaminophen [Hydrocodone-Acetamin 5-325 mg] 1 - 2 ea PO Q6H PRN 08/13/20 Omeprazole [Prilosec] 10 mg PO DAILY 08/13/20 Cefadroxil [Duracef] 500 mg PO BID #7 cap 08/15/20 Dexamethasone [Decadron] 6 mg PO DAILY #7 tab 08/15/20 Guaifenesin [Mucinex] 1,200 mg PO BID #14 tab.er.12h 08/15/20 Metoprolol(XL)Succ [Toprol Xl (Beta Naz)] 50 mg PO DAILY #0 08/15/20 cycloBENZAPRine HCl [Flexeril] 5 mg PO TID PRN PRN #30 tab 08/15/20 The following prescriptions were given: Dexamethasone [Decadron] 6 mg PO DAILY #7 tab Transmission Status: Pending to [id number] Cefadroxil [Duracef] 500 mg PO BID #7 cap Transmission Status: Pending to [id number] cycloBENZAPRine HCl [Flexeril] 5 mg PO TID PRN PRN #30 tab PRN Reason: muscle spasm Transmission Status: [facility]ending to [id number] Guaifenesin [Mucinex] 1,200 mg PO BID #14 tab.er.12h Transmission Status: [id number] Primary Care Physician: Care Physician,No Primary [Primary Care Provider] - Please follow up with your Primary Care Physician in: In 2 weeks Test Results: Test results from this visit will be discussed in further detail at your follow- up appointment, if applicable. Please Follow Up With: Ziyad Iglesias, DO When: In 2 to 4 weeks for neck pain, left-sided cervical neuropathy
--- NOTE | 2020-08-15 09:33 | DS.PCM_ITS ---
Discharge Date and Diagnosis - Problem List Patient Problems: Active and Suspected Problems (Last Reviewed 08/13/20 @ 03:[address] Favio Coffman MD) Coronavirus infection (Acute) Hypoxia (Acute) Syncope (Acute) Date of Admission: 08/13/20 Date of Discharge: 08/15/20 - Primary Discharge Diagnosis Acute Problems: Active Problems (Last Reviewed 08/13/20 @ 03:[address] Favio Coffman MD) Coronavirus infection (Acute) Hypoxia (Acute) Syncope (Acute) Hospital Course and Treatment Summary of Care Provided: [] The patient is a 75 year old F with a significant history of hypertension; gout; and hyperlipidemia who was admitted in PCU with syncope and was found to have a positive. COVID-19 antigen test sent and with radiographic evidence of bilateral hazy airspace disease; and with hypoxia requiring supplemental oxygenation. Patient states he took 2 tablets of [place] and after 2 and half hours he passed out. She had similar instance of syncope about 5 years ago after she had a flu infection. She states he has loss of taste and smell. Denies fall with her caught her. She had mild fever and chills 3 days ago along with cough. 1. COVID-19 bilateral pneumonia with acute hypoxic respiratory insufficiency: Discussed with ID. Started on remdesivir. Chest x-ray shows bilateral hazy airspace disease consistent with viral pneumonia. Procalcitonin negative. LDH and CRP are elevated. Troponin negative. Lactic acid normal. The patient is discharged on Decadron to complete a total of 10 days, Mucinex 2. Syncope probably secondary to infection/COVID-19 pneumonia: Patient does not have any chronic cardiopulmonary disease. Patient quit smoking about 30 years ago. EKG sinus rhythm with no significant ST-T wave abnormality. Orthostatic vitals are negative for postural hypotension or tachycardia. Patient heart rate was low in 50s but without symptoms, this happened transient today on 08/15.. Patient was advised to hold hold if heart rate less than 60/min decreased to 25 mg daily if persistently low in consultation with PCP. 3. Streptococcus group B colonization/partially treated UTI: Patient denies lower related symptoms including dysuria. LE 500. WBC 5-10 cells. Urine culture shows Streptococcus group B 11,000 25,000 colonies. The patient got 2 doses of ceftriaxone 1 g daily while in the hospital. Patient is discharged on 7 tablets of cefadroxil 500 mg twice daily to complete a total of 5 days of antibiotic. 4. Left cervical pain most likely left cervical radiculopathy/disc degeneration: On pain medication. Patient did not tolerate Zanaflex and felt some muscle twitching. Muscle relaxant changed to Flexeril. 5. Hypertension blood pressure is controlled 6. GERD: PPI 7. Chronic constipation: Patient is having bowel movement. VTE prophylaxis: On Lovenox. Discharge medication reconciliation done. Discharge follow-up instructions completed. Discharge process discussed with the patient and all questions were answered to patient's satisfaction. Patient moved to this town and does not have PCP. List for PCP given to the patient. Total time spent, exact 35 minutes on discharge meds reconciliation, examination, coordination of care with nurses and ancillary staff, review of imaging and blood test and discussion with the patient on follow-up instructions Patient Problems: Active and Suspected Problems (Last Reviewed 08/13/20 @ 03:[address] Favio Coffman MD) Coronavirus infection (Acute) Hypoxia (Acute) Syncope (Acute) Objective: Patient has minimal cough and able to bring up some phlegm. No fever or chills. Heart rate and blood pressure is good. Physical exam General: Alert, Oriented x3, Cooperative HEENT: Atraumatic, PERRLA, EOMI, Normocephalic Oral: No Gingival or Mucosal Lesions/ Ulcerations Neck: Mild tenderness and stiffness in cervical spine on left side. No JVD, Negative Carotid Bruits Lungs: Air entry equal in bilateral lung bases. No crepitation/rhonchi. No hypoxia or tachypnea Cardiovascular: Regular rate, Regular Rhythm, Normal S1, Normal S2, No murmurs Abdomen: Bowel Sounds Present, Soft, Non Tender, Non-Distended : No dysuria or new lower lower urinary tract symptoms. No renal angle tenderness. No suprapubic tenderness. Urine is light yellow Extremities: No edema, Capillary Refill Less than 3 Seconds Skin: No rashes, No breakdown Musculoskeletal: No Tenderness to Palpation of Joints or Extremities Neurological: Cranial nerves II-XII grossly intact, Deep Tendon Reflexes 2+/4 and Symmetrical, Neuro grossly intact Psych/Mental Status: Normal Affect, Appropriate. - Physical Exam Vitals/I&O's: Vital Signs Temp Pulse Resp BP Pulse Ox 97.8 F 59 L 15 118/55 L 97 08/15/20 08:12 08/15/20 08:12 08/15/20 08:12 08/15/20 08:12 08/15/20 08:12 Oxygen Flow Rate (L/min) 2 Oxygen Delivery Method Room Air Weight: 179 lb 10.828 oz Body Mass Index (BMI) 28.1 Orthostatic Vital Signs Start: 08/13/20 12:37 Freq: q24h Status: Active Protocol: Activity Type Activity Date Activity User E-Sign Co-Sign Detail Recorded Client Recorded Date Recorded By Document 08/13/20 12:37 AMG [id number] 08/13/20 12:44 AMG 08/13/20 12:37 Orthostatic Vitals Standing -Blood Pressure (90/60-120/80) 130/60 H -Extremity Use Right Arm -Pulse Rate (60-100) 88 Sitting -Blood Pressure (90/60-120/80) 129/55 H -Extremity Use Right Arm -Pulse Rate (60-100) 83 Lying -Blood Pressure (90/60-120/80) 126/57 H -Extremity Use Right Arm -Pulse Rate (60-100) 77 Intake and Output for Last 24 Hours 08/13/20 08/14/20 08/15/20 23:59 23:59 23:59 Intake Total 2590 / 2740 2540 / 2740 450 / 450 Balance 2590 / 2740 2540 / 2740 450 / 450 Microbiology Past 72 Hours 08/13/20 16:00 Urine, Clean Catch Urine Culture - Final Streptococcus agalactiae (B) 08/13/20 01:00 Mucosa - Nose SARS-CoV-2 Antigen (Rapid) - Final SARS-CoV-2 (COVID 19) Laboratory Results 08/15/20 03:59: WBC 3.0 L, RBC 3.51 L, Hgb 10.3 L, Hct 31.6 L, MCV 90.0, MCH 29.3, MCHC 32.6, RDW Std Deviation 42.9, RDW Coeff of [place] 12.9, Plt Count 116 L, MPV 10.0 08/15/20 03:59: Sodium 140, Potassium 3.9, Chloride 108 H, Carbon Dioxide 26.0, Anion Gap 6, BUN 19 H, Creatinine 0.59, Estim Creat Clear Calc 48.72, Est GFR (MDRD) Af Amer 130, Est GFR (MDRD) Non-Af 107, BUN/Creatinine Ratio 32.4 H, Glucose 120 H, Calcium 7.7 L, Total Bilirubin 0.20, AST 13 L, ALT 22, Alkaline Phosphatase 73, Total Protein 5.7 L, Albumin 2.7 L, Globulin 3.0, Albumin/Globulin Ratio 0.9 Current Medications Acetaminophen (Acetaminophen 325 Mg Tablet) 650 mg PO Q6H PRN PRN PRN Reason: Pain Score 1-10/Temp > 100.7 F Last Admin: 08/14/20 23:23 Dose: 650 mg Documented by: Albuterol Sulfate (Albuterol Sulfate 8 Gm Inhaler (60 Puffs)) 2 puff INHALATION Q4H PRN PRN PRN Reason: SHORTNESS OF BREATH Last Admin: 08/14/20 09:22 Dose: 2 puff Documented by: Dexamethasone (Dexamethasone 4 Mg Tablet) 6 mg PO DAILY [facility] Stop: 08/21/20 10:01 Last Admin: 08/15/20 08:18 Dose: 6 mg Documented by: Enoxaparin Sodium (Enoxaparin 30 Mg/0.3 Ml Syringe) 30 mg SC BID [facility] Last Admin: 08/15/20 08:20 Dose: 30 mg Documented by: Remdesivir 100 mg/ Sodium (Chloride) 250 mls @ 125 mls/hr IV Q24H [facility] Stop: 08/16/20 23:59 Last Infusion: 08/15/20 01:24 Dose: Infused Documented by: Ceftriaxone Sodium (Rocephin) 1 gm in 50 mls @ 100 mls/hr IV Q24 [facility] Last Infusion: 08/14/20 17:23 Dose: Infused Documented by: Melatonin (Melatonin 3 Mg Tablet) 3 mg PO QHS PRN PRN PRN Reason: INSOMNIA Last Admin: 08/14/20 23:23 Dose: 3 mg Documented by: Metoprolol Succinate (Metoprolol(Xl)Succ 25 Mg Tablet) 25 mg PO DAILY [facility] Ondansetron HCl (Ondansetron 4 Mg/2 Ml Vial) 4 mg IV Q8H PRN PRN PRN Reason: NAUSEA/VOMITING Pantoprazole Sodium (Pantoprazole Sodium 40 Mg Tablet) 40 mg PO DAILY [facility] Last Admin: 08/15/20 08:19 Dose: 40 mg Documented by: Polyethylene Glycol (Polyethylene Glycol 3350 17 Gm Packet) 17 gm PO DAILY PRN PRN PRN Reason: Constipation Potassium Chloride (Potassium Chloride 20 Meq Tablet) 40 meq PO DAILY [facility] Last Admin: 08/15/20 08:19 Dose: 40 meq Documented by: Psyllium Hydrophilic Mucilloid (Psyllium 1 Packet) 1 packet PO DAILY [facility] Last Admin: 08/15/20 08:20 Dose: 1 packet Documented by: Senna/Docusate Sodium (Senna/Docusate Sodium 1 Tablet) 1 tablet PO DAILY PRN PRN PRN Reason: CONSTIPATION Sodium Chloride (0.9% Saline Lock 10 Ml Syringe) 10 - 40 ml IV UD PRN PRN Reason: SALINE FLUSH Last Admin: 08/14/20 23:25 Dose: 10 ml Documented by: Tizanidine HCl (Tizanidine Hcl 2 Mg Tablet) 4 mg PO Q8H PRN PRN PRN Reason: MUSCLE SPASM Last Admin: 08/14/20 23:23 Dose: 4 mg Documented by: Discharge Activity: May Not Drive - in quarantine Weight Bearing Status: Weight bearing as tolerated Call your doctor if you observe: Fever of 101 or Higher, Coldness, Increased Pain, Numbness or Tingling, Change in Color, Inability to urinate, Inability to have a bowel movement, Using more than one pad per hour, Shortness of breath, Dizziness, Fainting spells, Swelling in the ankles, Prolonged hiccoughing, Increased palpitations (irregular heartbeat) Additional Dressing/Incision Instructions:: Quarantine for 8 more days. Total 14 days on the day of onset of symptoms until 08-23-2020 Home Medications: Medications to take at Discharge Atorvastatin Calcium 40 mg PO DAILY 08/13/20 Hydrocodone/Acetaminophen [Hydrocodone-Acetamin 5-325 mg] 1 - 2 ea PO Q6H PRN 08/13/20 Omeprazole [Prilosec] 10 mg PO DAILY 08/13/20 Cefadroxil [Duracef] 500 mg PO BID #7 cap 08/15/20 Dexamethasone [Decadron] 6 mg PO DAILY #7 tab 08/15/20 Guaifenesin [Mucinex] 1,200 mg PO BID #14 tab.er.12h 08/15/20 Metoprolol(XL)Succ [Toprol Xl (Beta Naz)] 50 mg PO DAILY #0 08/15/20 cycloBENZAPRine HCl [Flexeril] 5 mg PO TID PRN PRN #30 tab 08/15/20 Following Prescriptions Were Given to Patient: Dexamethasone [Decadron] 6 mg PO DAILY #7 tab Transmission Status: [id number] Cefadroxil [Duracef] 500 mg PO BID #7 cap Transmission Status: [id number] cycloBENZAPRine HCl [Flexeril] 5 mg PO TID PRN PRN #30 tab PRN Reason: muscle spasm Transmission Status: [id number] Guaifenesin [Mucinex] 1,200 mg PO BID #14 tab.er.12h Transmission Status: [id number] Primary Care Physician: Care Physician,No Primary [Primary Care Provider] - Medical Necessity - Tobacco Use Smoking Status: Former smoker Tobacco Use: Cigarettes Meaningful Use Info Meaningful Use Diagnoses (Choose all that apply): None applicable Inpatient E&M: 60117 [facility]
[2020-08-15] MEDS: 0.9% Saline Lock 10 ML Syringe IV (09:57)
[2020-08-15] MEDS: Metoprolol(XL)Succ 25 MG Tablet PO (09:57)
[2020-08-15] MEDS: Ceftriaxone 1 GM/50 ML BAG IV (09:57)
--- NOTE | 2020-08-16 15:33 | CASEMGMT ---
[facility] CM DC Note DC Date: 08/15/2020 DC Disposition: Home DC Diagnosis: COVID-19 Prescriptions obtained: yes Intro role of CM to patient via cell phone. Patient states she is feeling improved, just nauseous, but she contacted her PCP for prescription. Pt did not go home on oxygen, states she is feeling well and no shortness of breath. is home with her. No care improvement suggestions, and no questions re: medications. Ottnoiel IRVINGN RN ACM
== END 2020-08-15 15:10 | disposition home or self-care (01) | DRG 177 ==
LOC: ED 02:17 → PCU 02:45
PROVIDERS: Internal Medicine Infectious Disease; Admitting Provider Hospitalist; Emergency Provider Emergency Medicine; Visit Provider Internal Medicine
DX: U07.1 COVID-19 (principal); J12.89 Other viral pneumonia; N39.0 Urinary tract infection, site not specified; R06.89 Other abnormalities of breathing; I10 Essential (primary) hypertension; E78.5 Hyperlipidemia, unspecified; K21.9 Gastro-esophageal reflux disease without esophagitis; R09.02 Hypoxemia; K59.09 Other constipation; Z96.641 Presence of right artificial hip joint; B95.1 Streptococcus, group B, as the cause of diseases classified elsewhere; M50.10 Cervical disc disorder with radiculopathy, unspecified cervical region; M10.9 Gout, unspecified; M62.838 Other muscle spasm; Z87.891 Personal history of nicotine dependence
CPT/HCPCS: 36415; 71045; 80053; 81001; 83605; 83615; 83735; 83880; 84145; 84484; 85027; 85379; 85384; 85610; 86140; 87070; 87077; 87086; 87088; 87186; 87205; 87426; 93005; 94667; 94668; 97802; 99251; 99285; J7050; J7120; A4216; G0463; J2405

== ENCOUNTER 2020-08-22 03:50 | Inpatient (IN) | payer MEDICARE, OTHER, SELFPAY ==
[2020-08-13 03:20] VITALS: BMI 28.1
[2020-08-22] VITALS (24 sets, daily range): BP systolic 95–162; BP diastolic 40–81; PULSE 68–104; RESP 13–23; TEMP 36.2–37.6; O2SAT 92–100; BMI 28.5; BMI 28.6
--- NOTE | 2020-08-22 04:08 | CT_ITS ---
STUDY: CT CERVICAL SPINE WITHOUT CONTRAST REASON FOR EXAM: Female, 75 years old. COVID, SYNCOPE, HIT HEAD. LAC ON RIGHT SIDE, NAUSEA. RADIATION DOSAGE (If Supplied By Facility): CTDIvol = ( 19.11 ) mGy, DLP = ( 385.33 ) mGycm TECHNIQUE: High resolution transaxial imaging was performed without contrast material. Sagittal and coronal images were reconstructed. Individualized dose optimization techniques were used for this CT. COMPARISON: None FINDINGS: Normal craniovertebral junction. There are degenerative changes of the anterior atlantoaxial articulation. Normal odontoid process. There is straightening of the normal cervical lordosis. Normal vertebral bodies and posterior osseous elements. C2-3: Normal endplates. Normal disc height and morphology. Normal central canal and intervertebral neuroforamina. C3-4: Endplate spondylosis. Central and paracentral disc bulge. Degenerative changes of the bilateral facet joints and uncovertebral joints. Moderate narrowing of the central canal and the bilateral intervertebral neural foramina. C4-5: Endplate spondylosis. Central and paracentral disc bulge. Degenerative changes of the bilateral facet joints and uncovertebral joints. Moderate narrowing of the central canal and the bilateral intervertebral neural foramina. C5-6: Endplate spondylosis. Central and paracentral disc bulge. Degenerative changes of the bilateral facet joints and uncovertebral joints. Moderate narrowing of the central canal and the bilateral intervertebral neural foramina. C6-7: Endplate spondylosis. Central and paracentral disc bulge. Degenerative changes of the bilateral facet joints and uncovertebral joints. Moderate narrowing of the central canal and the bilateral intervertebral neural foramina. C7-T1: Normal endplates. Normal disc height and morphology. Normal central canal and intervertebral neuroforamina. Normal visualized soft tissue structures. CT/Spine Cervical without Contras IMPRESSION: Multilevel degenerative changes, as described above. Electronically Signed: Julita Mendez, at 5:07 EST Tel , Service support ,
--- NOTE | 2020-08-22 04:08 | CT_ITS ---
STUDY: CT BRAIN WITHOUT CONTRAST REASON FOR EXAM: Female, 75 years old. COVID, SYNCOPE, HIT HEAD. LAC ON RIGHT SIDE, NAUSEA. RADIATION DOSAGE (If Supplied By Facility): CTDIvol = ( 44.99 ) mGy, DLP = ( 779.24 ) mGycm TECHNIQUE: Transaxial CT imaging of the brain was performed without administration of intravenous contrast material. Individualized dose optimization techniques were used for this CT. COMPARISON: No relevant priors. FINDINGS: Normal soft tissue structures. Normal calvarium. Normal size ventricles and extra-axial spaces for the patient''s age. There are areas of decreased attenuation within the white matter tracts of the supratentorial brain, consistent with microvascular disease changes. Normal basal ganglia and thalami. Normal brainstem. Normal cerebellum. There is no intracranial hemorrhage. There are no findings of an acute ischemic infarction. Normal visualized paranasal sinuses. CT/Brain/Head without Contrast IMPRESSION: Chronic involutional changes of the brain. Electronically Signed: Julita Mendez, at 5:05 EST Tel , Service support ,
--- NOTE | 2020-08-22 04:08 | CT_ITS ---
STUDY: CTA CHEST REASON FOR EXAM: Female, 75 years old. SYNCOPE, COVID RADIATION DOSAGE (If Supplied By Facility): CTDIvol = ( 10.145 ) mGy, DLP = ( 476.32 ) mGycm TECHNIQUE: The examination was performed with the intravenous administration of IV 100mL Isovue-370. Post-processing of the angiographic images was performed, with multiplanar reformation and 3D reconstruction. Individualized dose optimization techniques were used for this CT. COMPARISON: None. FINDINGS: Normal enhancement of the main pulmonary artery and right and left pulmonary arteries. Normal enhancement of the bilateral peripheral pulmonary arteries. There is no demonstrated pulmonary embolism. Normal thoracic aorta and visualized great vessels. There is no demonstrated aortic dissection. Normal heart and pericardium. There are mildly enlarged mediastinal and hilar lymph nodes, which are distended with reactive lymphadenopathy due to infection. Normal visualized trachea and bronchi. The lungs are well expanded. Ill-defined subpleural groundglass opacities are seen more prominent in the lung bases , may represent atypical pneumonia or viral pneumonia (COVID-19 ). Normal pleura. Normal chest wall structures. Normal osseous structures. Normal visualized upper abdomen. CT/CTA Chest W/WO Contrast IMPRESSION: Covid 19 pneumonia. No demonstrated pulmonary embolism or arterial dissection. Electronically Signed: Julita Mendez, at 5:28 EST Tel , Service support ,
--- NOTE | 2020-08-22 04:09 | EKG12_ITS ---
Test Reason : FALL Blood Pressure : / mmHG Vent. Rate : 099 BPM Atrial Rate : 099 BPM P-R Int : 174 ms QRS Dur : 082 ms QT Int : 328 ms P-R-T Axes : 047 058 062 degrees QTc Int : 420 ms Normal sinus rhythm Normal ECG Confirmed by LISBETH HECTOR, TRELL ([id number]), development editor GAVINO ZEPEDA ([id number]) on 08/26/2020 10:14:17 AM Referred By: STACI Confirmed By:JERILYN BOB MD
--- NOTE | 2020-08-22 04:11 | ED.DCSUM_ITS ---
History of Present Illness Chief Complaint: Fall Narrative: This patient is a 75-year-old female who presents after a fall. She was recently hospitalized for Covid and hypoxia. Since discharge she has had severe nausea but no vomiting. She remembers going to bed. She then remembers being on the bathroom floor. She does not remember how she got there. Per EMS report she had gotten dizzy and fallen but the patient does not recall this. Right now her only complaint is nausea. She denies headache. She is not anticoagulated. She did suffer a facial laceration. No history of DVT or pulmonary embolism. No chest pain or shortness of breath. No extremity pain or swelling. Past Medical History - Allergies and Home Meds Allergies/Adverse Reactions: Allergies No Known Allergies Allergy (Verified 08/22/20 03:56) Primary Care Physician: NOT,DEFINED [NON-STAFF] - Past Medical History: - - Hypertension, hyperlipidemia, recent COVID-19 Surgical History: - - Right hip replacement Smoking Status: Never smoker - Family History Maternal Family History: Reports: Heart Disease, Pulmonary Disease Paternal Family History: Reports: Heart Disease Review of Systems All systems negative except as indicated General: Denies: Fever Eyes: Denies: Visual changes - bilaterally ENT: Denies: Bilateral ear pain Cardiovascular: Denies: Chest pain Respiratory: Denies: Dyspnea Gastrointestinal: Reports: Nausea. Denies: Vomiting, Diarrhea Musculoskeletal: Denies: Swelling, Extremity Pain Skin: Denies: Rash Neurological: Denies: Headache Hematologic: Denies: Easy bruising Allergy: Denies: Uticaria Physical Exam Vital Signs/Narrative: Vital Signs Temp Pulse Resp BP Pulse Ox 08/22/20 03:52 99.7 F H 104 H 18 132/65 H 95 Inital Vital Signs reviewed: Yes General: Well nourished Head: Normocephalic, - - 2 cm right forehead laceration Eyes: EOMI ENT: Moist mucous membranes Neck: Nontender Cardiovascular: Regular rhythm, Tachycardia Respiratory: No distress, CTA bilaterally. Negative for: Rales, Wheezing Abdomen: Soft, Nontender Extremities: Nontender, No edema Skin: Normal color Neurological: Alert, - - GCS 14, oriented to person and place but not age Psychological: Normal affect Diagnostic/Tx/Re-eval Impressions Brain CT 08/22/20 04:08 IMPRESSION: Chronic involutional changes of the brain. Electronically Signed: Julita Mendez, at 5:05 EST Tel , Service support , Cervical Spine CT 08/22/20 04:08 IMPRESSION: Multilevel degenerative changes, as described above. Electronically Signed: Julita Mendez, at 5:07 EST Tel , Service support , Chest CTA 08/22/20 04:08 IMPRESSION: Covid 19 pneumonia. No demonstrated pulmonary embolism or arterial dissection. Electronically Signed: Julita Mendez, at 5:28 EST Tel , Service support , Chest X-Ray 08/22/20 04:28 IMPRESSION: Bilateral hazy opacities. Increased in the mid to upper right lung zone. Nonspecific. However atypical viral infectious process such as Covid 19 can BE considered in the appropriate clinical setting. Recommend follow-up imaging to ensure resolution as underlying neoplasm cannot be excluded. Electronically Signed: Anselmo Knight, at 5:02 EST Tel , Service support , 08/22/20 04:08 Brain/Head without Contrast [CT] Stat CT Cervical [Spine Cervical without Contras] [CT] Stat CTA Chest W/WO Contrast [CT] Stat 08/22/20 04:28 Chest 1 View (Portable) [RAD] Stat Laboratory Results 08/22/20 08/22/20 08/22/20 04:00 04:00 04:00 WBC 10.0 RBC 4.89 Hgb 13.9 Hct 41.5 MCV 84.9 MCH 28.4 MCHC 33.5 RDW Std Deviation 38.9 RDW Coeff of [place] 12.8 Plt Count 253 MPV 9.2 Immature Gran % (Auto) 2.100 H Neut % (Auto) 81.0 H Lymph % (Auto) 9.4 L [place] % (Auto) 7.2 Eos % (Auto) 0.1 Baso % (Auto) 0.2 Absolute Neuts (auto) 8.1 H Absolute Lymphs (auto) 0.94 Nucleated RBC % 0 PT 12.9 INR 1.0 Sodium 132 L Potassium 3.2 L Chloride 97 L Carbon Dioxide 25.0 Anion Gap 10 BUN 23 H Creatinine 0.92 Estim Creat Clear Calc 52.96 Est GFR (MDRD) Af Amer 77 Est GFR (MDRD) Non-Af 64 BUN/Creatinine Ratio 25.0 H Glucose 110 H Calcium 8.2 L Total Bilirubin 0.70 AST 21 ALT 38 Alkaline Phosphatase 106 Troponin I < 0.015 Total Protein 6.9 Albumin 3.2 Globulin 3.7 Albumin/Globulin Ratio 0.9 - Medical Decision Making EKG shows normal sinus rhythm at a rate of 99 with no acute ischemic changes. Chest x-ray showed a bilateral hazy opacities which are consistent with her history of Covid pneumonia. Serum laboratory studies are essentially unremarkable with a negative troponin. Given Covid and syncope this raise concern for pulmonary embolism. A CTA of the chest shows no evidence of pulmonary embolism. She had actually had a syncopal episode at her last admission. However she is very confused. She does not recall the events of tonight. She was unable to tell me her age. While she was here she had not remembered receiving nausea medications. Given this confusion I do not feel she is safe for discharge. Patient was discussed with the hospitalist and placed in observation. ED Disposition - Plan for ED Patient: Disposition: [facility] Diagnosis: Syncope, COVID-19, Confusion Referrals: NOT,DEFINED [NON-STAFF] -
[2020-08-22] MEDS: 0.9% Normal Saline 1,000 ML 999 ML IV (04:12)
[2020-08-22] MEDS: Ondansetron 4 MG/2 ML Vial IV (04:13)
[2020-08-22 04:19] LABS: Absolute Lymphocyte Count 0.94 X10^3/uL (0.83-4.51); Absolute Neutrophil Count 8.1 X10^3/uL (2.0-7.7); Basophil# 0.02 X10^3/uL; Basophil% 0.2 % (0-1); Eosinophil# 0.01 X10^3/uL; Eosinophils% 0.1 % (0-5); Hematocrit 41.5 % (37-47); Hemoglobin 13.9 g/dL (12.0-15.0); Lymphocyte # 0.94 X10^3/ul (4.0); Lymphocyte % 9.4 % (19-41); Mean Corp Hgb Conc 33.5 g/dL (32-36); Mean Corpuscular Hgb 28.4 pg (27.0-32.0); Mean Corpuscular Volume 84.9 fL (81-99); Mean Platelet Vol. 9.2 fl (6.2-12.0); Monocyte# 0.72 X10^3/uL; Monocyte% 7.2 % (0-10); NRBC Flagged by Analyzer 0 % (0-5); Neutrophil # 8.13 X10^3/uL (2.7-7.7); Platelet Count 253 K/mm3 (150-450); RBC Distribution Width CV 12.8 % (11.6-14.6); RBC Distribution Width SD 38.9 fl (35.1-43.9); Red Blood Count 4.89 M/mm3 (4.2-5.4)
--- NOTE | 2020-08-22 04:28 | RAD_ITS ---
STUDY: X-RAY CHEST REASON FOR EXAM: Female, 75 years old. pt diagnosed with covid on the . pt became dizzy and fell and hit head. c/o nausea. TECHNIQUE: Single frontal view of the chest. COMPARISON: 08/13/2020 FINDINGS: Bilateral hazy opacities are present. Increasing in the right mid to upper lung zone. No pneumothorax or pleural effusion. Normal size heart. Aortic calcifications. There are diffuse degenerative changes of the visualized thoracic spine. EKG leads artifacts. There is no demonstrated abnormality of the visualized soft tissue structures of the upper abdomen. RAD/Chest 1 View (Portable) IMPRESSION: Bilateral hazy opacities. Increased in the mid to upper right lung zone. Nonspecific. However atypical viral infectious process such as Covid 19 can BE considered in the appropriate clinical setting. Recommend follow-up imaging to ensure resolution as underlying neoplasm cannot be excluded. Electronically Signed: Anselmo Knight, at 5:02 EST Tel , Service support ,
[2020-08-22 04:36] LABS: Prothrombin Time (Protime)PT. 12.9 SECONDS (11.7-14.9)
[2020-08-22 04:39] LABS: ALB/GLOB Ratio 0.9 RATIO (0.9-2.4); AST(SGOT) 21 U/L (15-37); Alanine Aminotransfer ALT/SGPT 38 U/L (13-56); Albumin, Serum 3.2 g/dL (3.2-5.0); Alkaline Phosphatase 106 U/L (45-117); Anion Gap 10 (5-15); BUN 23 mg/dL (7-18); Calcium,Total 8.2 mg/dL (8.5-10.1); Chloride 97 mmol/L (98-107); Creatinine, Serum 0.92 mg/dL (0.55-1.02); EST Glomerular Filtration Rate 64 mL/min (>60); Est Glom Filt Rate - Afr Amer 77 mL/min (>60); Estimated Creatinine Clearance 52.96 ml/min; Globulin 3.7 g/dL (2.2-4.2); Glucose 110 mg/dL (74-106); Potassium 3.2 mmol/L (3.5-5.1); Protein, Total 6.9 g/dL (6.4-8.2); Sodium Level 132 mmol/L (136-145)
[2020-08-22] MEDS: Potassium Chloride 10mEq/100mL 10 MEQ/100 ML IV.SOLN. 100 MEQ IV BOLUS ×6 (05:18→13:20)
[2020-08-22] MEDS: Lidocaine 1% (20 ml mdv) 20 ML Vial INFILT (05:20)
--- NOTE | 2020-08-22 06:01 | PCM.HP.STD ---
Problem List (1) Seizure Status: Acute (2) GERD (gastroesophageal reflux disease) Status: Chronic (3) Hyperlipidemia Status: Chronic (4) Hypertension Status: Chronic (5) Syncope Status: Acute (6) COVID-19 Status: Chronic History of Present Illness Date of Admission: 08/22/20 Chief Complaint: Syncopal episode. The patient is a 75 year old F with past medical history as mentioned above presented to the emergency room because of syncopal episode. Patient presented to emergency room because of fall, found unresponsive in her house and was brought to the emergency department. The patient mentioned that she was at home walking, felt dizzy and lightheaded and then she does not recall what happened. She thinks that she passed out. She struck her head on the floor and she has laceration on the right frontal scalp. She reported nausea without vomiting. She denied chest pain, palpitation, shortness of breath. She denied fever or chills. She was discharged from the hospital 1 week ago after admission for COVID-19 pneumonia. While I am talking to the patient when she was on the bedside commode, she started having a seizure which was generalized tonic-clonic, more pronounced on the left side of her body. Her eyes were open spontaneously and she was not responding. Shortly after, she became postictal and then she woke up. She had no history of seizure. She complained of left hand pain where the IV potassium chloride is running. In the emergency department, she was afebrile,, heart rate has been around 100, blood pressure stable, pulse ox was 95% on room air. Routine blood work was remarkable for sodium of 132, potassium 3.2. LFT was unremarkable. EKG showed normal sinus rhythm without evidence of cardiac arrhythmias or acute ischemic changes. Troponin was negative. Chest x-ray revealed bilateral hazy opacities likely related to recent COVID-[address] scan brain showed no acute findings. CT scan cervical spine showed no acute fractures. CTA of the chest revealed no PE or dissection, revealed bilateral basilar groundglass opacities due to recent COVID-19 pneumonia. She is being admitted for seizure, reported syncopal episode, closed head injury hyponatremia and recent COVID-19 pneumonia. Past Medical History Past Medical History (Chronic Problems): Chronic Problems (Last Reviewed 08/13/20 @ 03:[address] Favio Coffman MD) GERD (gastroesophageal reflux disease) (Chronic) Hyperlipidemia (Chronic) Hypertension (Chronic) COVID-19 (Chronic) Medical History: Medical History (Last Reviewed 08/13/20 @ 03:[address] Favio Coffman MD) GERD (gastroesophageal reflux disease) K21.9 Hyperlipidemia E78.5 Hypertension I10 Allergies No Known Allergies Allergy (Verified 08/22/20 03:56) Home Medications: Ambulatory Orders Medication Instructions Recorded Atorvastatin Calcium 40 mg PO DAILY 08/13/20 Hydrocodone/Acetaminophen 1 - 2 ea PO Q6H PRN 08/13/20 [Hydrocodone-Acetamin 5-325 mg] Omeprazole [Prilosec] 10 mg PO DAILY 08/13/20 Dexamethasone [Decadron] 6 mg PO DAILY #7 tab 08/15/20 Guaifenesin [Mucinex] 1,200 mg PO BID #14 tab.er.12h 08/15/20 Metoprolol(XL)Succ [Toprol Xl 50 mg PO DAILY #0 08/15/20 (Beta Naz)] cycloBENZAPRine HCl [Flexeril] 5 mg PO TID PRN PRN #30 tab 08/15/20 Surgical History: total hip arthroplasty, - Psychiatric History: No pertinent psych hx 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 Denies: Chest Pain, Chest Pressure, Palpitations, Syncope Respiratory: Denies: Cough, Pleuritic Pain, Shortness of Breath, Sputum production, Wheezing Gastrointestinal: Reports: Nausea. Denies: Abdominal Pain, Constipation, Diarrhea, Vomiting Genitourinary: Denies: Dysuria, Frequency, Hematuria Musculoskeletal: Denies: Arm Pain, Back Pain, Foot Pain Skin: Denies: Dryness, Rash Neurological: Reports: Confusion, Seizures. Denies: Balance problems, Double vision, Change in Speech, Slurred speech, Headaches, Incoordination, Numbness Psychiatric: Denies: Anxiety, Depression Endocrine: Denies: Change in Body Habitus, Polydipsia, Polyuria VTE Information - Inpt Only VTE Present on Admission: No VTE Mechan Device Prophylaxis: None VTE Pharm Prophylaxis ordered?: Yes Patient Problems: Active and Suspected Problems (Last Reviewed 08/13/20 @ 03:[address] Favio Coffman MD) Syncope (Acute) - Physical Exam Vitals/I&O's: Vital Signs Temp Pulse Resp BP Pulse Ox 99.7 F H 104 H 18 132/65 H 95 08/22/20 03:52 08/22/20 03:52 08/22/20 03:52 08/22/20 03:52 08/22/20 03:52 Oxygen Delivery Method Room Air Weight: 182 lb 5.156 oz Body Mass Index (BMI) 28.5 General: Alert, Oriented x3, Cooperative, - - She was postictal for short period of time. HEENT: Atraumatic, PERRLA, EOMI, Normocephalic Oral: Moist Mucosa, No Gingival or Mucosal Lesions/ Ulcerations Neck: Supple, No JVD, Negative Carotid Bruits, Trachea Midline, Thyroid Normal Size and Texture Lungs: Clear to auscultation, Normal air movement, No rhonchi, No wheeze, No rales, Diminished Cardiovascular: Regular rate, Regular Rhythm, Normal S1, Normal S2, PMI Normal, Tachycardic Abdomen: Bowel Sounds Present, Soft, Non Tender, Non-Distended, No Hepato-splenomegaly Extremities: No clubbing, No cyanosis, No edema Skin: No rashes, No breakdown Lymphatic: No Cervical, Supraclavicular, or Inguinal Adenopathy Neurological: Cranial nerves II-XII grossly intact, Motor Exam 5/5 strength throughout Psych/Mental Status: Appropriate, Flat Affect, Alert and oriented to time, place, person, mood and affect Laboratory Results 08/22/20 04:00: WBC 10.0, RBC 4.89, Hgb 13.9, Hct 41.5, MCV 84.9, MCH 28.4, MCHC 33.5, RDW Std Deviation 38.9, RDW Coeff of [place] 12.8, Plt Count 253, MPV 9.2, Immature Gran % (Auto) 2.100 H, Neut % (Auto) 81.0 H, Lymph % (Auto) 9.4 L, [place] % (Auto) 7.2, Eos % (Auto) 0.1, Baso % (Auto) 0.2, Absolute Neuts (auto) 8.1 H, Absolute Lymphs (auto) 0.94, Nucleated RBC % 0 08/22/20 04:00: PT 12.9, INR 1.0 08/22/20 04:00: Sodium 132 L, Potassium 3.2 L, Chloride 97 L, Carbon Dioxide 25.0, Anion Gap 10, BUN 23 H, Creatinine 0.92, Estim Creat Clear Calc 52.96, Est GFR (MDRD) Af Amer 77, Est GFR (MDRD) Non-Af 64, BUN/Creatinine Ratio 25.0 H, Glucose 110 H, Calcium 8.2 L, Total Bilirubin 0.70, AST 21, ALT 38, Alkaline Phosphatase 106, Troponin I < 0.015, Total Protein 6.9, Albumin 3.2, Globulin 3.7, Albumin/Globulin Ratio 0.9 Clinical Impression(s) from Imaging Studies Brain CT 08/22/20 04:08 IMPRESSION: Chronic involutional changes of the brain. Electronically Signed: Julita Mendez, at 5:05 EST Tel , Service support , Cervical Spine CT 08/22/20 04:08 IMPRESSION: Multilevel degenerative changes, as described above. Electronically Signed: Julita Mendez at 5:07 EST Tel , Service support , Chest CTA 08/22/20 04:08 IMPRESSION: Covid 19 pneumonia. No demonstrated pulmonary embolism or arterial dissection. Electronically Signed: Julita Mendez at 5:28 EST Tel , Service support , Chest X-Ray 08/22/20 04:28 IMPRESSION: Bilateral hazy opacities. Increased in the mid to upper right lung zone. Nonspecific. However atypical viral infectious process such as Covid 19 can BE considered in the appropriate clinical setting. Recommend follow-up imaging to ensure resolution as underlying neoplasm cannot be excluded. Electronically Signed: Anselmo Knight, at 5:02 EST Tel , Service support , Current Medications Potassium Chloride () 10 meq in 100 mls @ 100 mls/hr IV BOLUS Q1H HAYLEE Stop: 08/22/20 07:14 Last Admin: 08/22/20 05:18 Dose: 100 mls/hr Documented by: Assessment/Plan All Active Problems (Last Reviewed 08/13/20 @ 03:[address] Favio Coffman MD) Seizure (Acute) Syncope (Acute) This is a 75 years old female patient presented to the emergency room because of reported syncopal episode, had a closed head injury with a laceration of the right frontal scalp which was sutured, had a seizure in the ED, had recent COVID-19 pneumonia and she is being admitted for evaluation and treatment. #1 reported syncopal episode/new onset seizure: It is probably a seizure not a syncopal episode. She developed brief generalized tonic-clonic seizure more pronounced on the left side of her body while she was in the ED. She had no history of seizure in the past. CT scan brain showed no acute findings. Other imaging studies reviewed. EKG was unremarkable. Troponin was negative. Plan: Admit to PCU, cardiac monitoring, seizure precautions, IV Ativan as needed for seizure, MRI brain, SOC teleneurology consult, IV fluids, Tylenol as needed, Zofran as needed, repeat CBC and BMP tomorrow morning, PT OT evaluation and treatment. #2 recent bilateral COVID-19 pneumonia: She was discharged from the hospital on August 15, 2020, completed 7 days of dexamethasone after discharge as well as cefadroxil. CTA chest and chest x-ray reviewed. Apparently, her symptoms started on August 11, 2020. Currently, she is afebrile, on room air. Denied shortness of breath or cough. Plan: Isolation precautions, she completed treatment of dexamethasone, remdesivir and cefadroxil. #3 hyponatremia/hypokalemia: Unclear etiology. Plan for IV fluids, replace potassium as appropriate, check serum magnesium, repeat BMP tomorrow morning. #4 closed head injury/right frontal scalp laceration: Laceration sutured, CT scan brain showed no acute findings. Plan for MRI brain as above. #5 hypertension: Blood pressure slight elevated, continue metoprolol, start IV hydralazine as needed. #6 hyperlipidemia: Continue statins. #7 GERD: Continue PPI. #8 DVT prophylaxis: Subcu Lovenox. This note was generated with In[employer] dictation software. It may contain incorrect words, spelling, and punctuation that were not noted in checking the note before signing. Inpatient E&M: [id number] Init Hosp L3
--- NOTE | 2020-08-22 06:03 | ED.RN ---
0550 pt asking to use the bathroom,with assist of two helped up to the bsc.pt had already wet the bed.. dr REDDY AT THE BEDSIDE WHILE PT ON THE COMMODE.MD ASSESSING THE PT AND SHE WENT UNRESPONSIVE. PT WOULD COME IN AND OUT OF CONSCIOUSNESS.PER MD PT HAVING A SEIZURE.WITH ASSIST OF THREE PT PICKED UP AND PLACED IN THE BED.PT AROUSABLE,BUT CONFUSED.SEIZURE PADS APPLIED.
--- NOTE | 2020-08-22 06:08 | ED.RN ---
PT C/O HER HAND BURNING AT IV SITE.IV INTACT WITHOUT REDNESS OR EDEMA, DRIP DECREASED TO 80CC/HR,WILL MONITOR.
--- NOTE | 2020-08-22 06:53 | ED.RN ---
,CHARI, UPDATED ABOUT PT'S ADMISSION.
[2020-08-22] MEDS: levETIRAcetam IV 1,000 MG/100 ML BAG 400 MG IV (08:01)
--- NOTE | 2020-08-22 08:04 | TELEMED_ITS ---
[facility] Telemed has confirmed receipt of a request for visit. This document confirms receipt of the order initiating the consult. To find the results of the consultation, please view the patient's reports for the scanned Telemed Consult.
--- NOTE | 2020-08-22 08:04 | MRI_ITS ---
We are attempting to reach an attending provider to discuss findings. An addendum with communication details will be sent when the communication is complete. STUDY: MRI BRAIN WITHOUT CONTRAST REASON FOR EXAM: Female, 75 years old. New seizure, falls ,COVID 19 TECHNIQUE: Standardized multiplanar fat and water weighted pulse sequences were obtained. COMPARISON: 08/22/2020 CT of the head FINDINGS: Normal size of the ventricles and extra-axial spaces for the patient''s age. There are multiple white matter hyperintensities, distributed throughout the deep white matter tracts of the cerebral hemispheres, consistent with moderate chronic white matter ischemic changes. There is a 7 mm diffusion involving the left cerebellar hemisphere seen on ADC map, consistent with acute infarction. Normal bilateral basal ganglia. Normal thalami. There is no extra-axial fluid accumulation. Normal flow voids within the major intracranial circulation suggesting patency by spin echo criteria. Normal sella turcica, pituitary gland, infundibular stalk, optic chiasm and hypothalamus. Normal tectal plate and pineal gland. Normal midbrain, fifi and medulla. Normal cerebellum. Normal basal cisterns. MRI/Brain without Contrast IMPRESSION: Acute small left cerebellar infarct. Electronically Signed: Roel Bernard MD at 12:24 EST Tel , Service support ,
[2020-08-22] MEDS: 0.9% Normal Saline 1,000 ML 75 ML IV ×2 (08:25→21:45)
[2020-08-22 08:33] LABS: Phosphorus 3.1 mg/dL (2.5-4.9)
[2020-08-22] MEDS: Atorvastatin Calcium 40 MG Tablet PO (10:41)
[2020-08-22] MEDS: Enoxaparin 40 MG/0.4 ML Syringe SC (10:41)
[2020-08-22] MEDS: Pantoprazole Sodium 20 MG Tablet PO (10:41)
[2020-08-22] MEDS: Metoprolol(XL)Succ 50 MG Tablet PO (10:41)
--- NOTE | 2020-08-22 10:57 | CCHN_ITS ---
Hospitalist Note Seen and examined in the ICU Patient was admitted hse coordinator around 6:00 AM today. H&P reviewed. Vitals, labs and imaging reviewed. Patient was earlier admitted between 08/13 to syncope. Orthostatic vital signs were negative for postural hypotension or tachycardia. She had 4 days of remdesivir and completed Decadron. She also had a strep group B colonization for which she received 2 doses of ceftriaxone 1 g daily. Patient said she had fallen a couple times after the discharge. She felt dizzy, lightheaded. In the morning today, seizure, generalized tonic-clonic was observed by the admitting hospitalist when she was sitting on the commode. She was not responding although her eyes were open and postictal confusion. Denies burning micturition, increased frequency and urgency. No fever. No cough or shortness of breath or sputum production. Labs show sodium 132, K3.2, magnesium 2.0, phosphorus 3.1. Patient on IV fluid normal saline with potassium replacement. Started on 1 g of Keppra 1 dose loading dose. MRI brain and EEG has been ordered. Neuro consult after MRI and EEG are done. Physical exam General: Mild lethargic, Oriented x3, Cooperative HEENT: Atraumatic, PERRLA, EOMI, Normocephalic Oral: No Gingival or Mucosal Lesions/ Ulcerations Neck: Supple, No JVD, Negative Carotid Bruits Lungs: Air entry diminished in bilateral lung bases. No crepitation/rhonchi Cardiovascular: Regular rate, Regular Rhythm, Normal S1, Normal S2, No murmurs Abdomen: Bowel Sounds Present, Soft, Non Tender, Non-Distended : No renal angle tenderness. No suprapubic tenderness. Extremities: Mild bilateral ankle edema, Capillary Refill Less than 3 Seconds Skin: No rashes, No breakdown Musculoskeletal: No Tenderness to Palpation of Joints or Extremities Neurological: No muscle rigidity, gross sensation equal and symmetrical. Cranial nerves II-XII grossly intact, Deep Tendon Reflexes 2+/4. Psych/Mental Status: Lethargic. Clinical Impression(s) from Imaging Studies Brain CT 08/22/20 04:08 IMPRESSION: Chronic involutional changes of the brain. Cervical Spine CT 08/22/20 04:08 IMPRESSION: Multilevel degenerative changes, as described above. Chest CTA 08/22/20 04:08 IMPRESSION: Covid 19 pneumonia. No demonstrated pulmonary embolism or arterial dissection. Chest X-Ray 08/22/20 04:28 IMPRESSION: Bilateral hazy opacities. Increased in the mid to upper right lung zone. Nonspecific. However atypical viral infectious process such as Covid 19 can BE considered in the appropriate clinical setting. Recommend follow-up imaging to ensure resolution as underlying neoplasm cannot be excluded.
[2020-08-22] MEDS: Acetaminophen 325 MG Tablet 650 MG PO ×2 (12:05→18:40)
[2020-08-22] MEDS: Clopidogrel Bisulfate 75 MG Tablet PO (16:30)
[2020-08-22] MEDS: Aspirin E.C. 81 MG Tablet PO (16:39)
[2020-08-22 17:24] LABS: Magnesium 1.8 mg/dL (1.6-2.6)
[2020-08-22 19:06] LABS: Potassium 3.7 mmol/L (3.5-5.1)
--- NOTE | 2020-08-22 21:25 | PCM.CONS.C ---
Problem List (1) Seizure Status: Acute (2) Hyperlipidemia Status: Chronic (3) Hypertension Status: Chronic (4) Syncope Status: Acute (5) COVID-19 Status: Chronic (6) Cerebellar stroke Status: Acute Reason for Consult Date of Consultation: 08/22/20 History of Present Illness: The patient is a 75 year old F presented inpatient due to a syncopal episode. The patient was later found to have a cerebellar stroke. On presentation, the patient did have atrial fibrillation with RVR that some spontaneously converted into sinus rhythm. The patient is currently in sinus rhythm. She is resting. The patient has not have any complaint of typical anginal symptoms. She only complained mainly of shortness of breath. Patient has been evaluated by neurology team. Cardiology was consulted for further evaluation regarding possible etiology of cardioembolic phenomenon. Patient reported when she was in the irregular heart rhythm, she was not really aware of that either. Past Medical History Allergies/Adverse Reactions: Allergies No Known Allergies Allergy (Verified 08/22/20 03:56) Home Medications: Ambulatory Orders Medication Instructions Recorded Atorvastatin Calcium 40 mg PO DAILY 08/13/20 Hydrocodone/Acetaminophen 1 - 2 ea PO Q6H PRN 08/13/20 [Hydrocodone-Acetamin 5-325 mg] Omeprazole [Prilosec] 10 mg PO DAILY 08/13/20 Dexamethasone [Decadron] 6 mg PO DAILY #7 tab 08/15/20 Guaifenesin [Mucinex] 1,200 mg PO BID #14 tab.er.12h 08/15/20 Metoprolol(XL)Succ [Toprol Xl 50 mg PO DAILY #0 08/15/20 (Beta Naz)] cycloBENZAPRine HCl [Flexeril] 5 mg PO TID PRN PRN #30 tab 08/15/20 Past Medical History (Chronic Problems): Chronic Problems (Last Reviewed 08/13/20 @ 03:[address] Favio Coffman MD) GERD (gastroesophageal reflux disease) (Chronic) Hyperlipidemia (Chronic) Hypertension (Chronic) COVID-19 (Chronic) Surgical History: total hip arthroplasty, - Psychiatric History: No pertinent psych hx AUDIT ASSOCIATE History: No pertinent AUDIT ASSOCIATE history - *Family History Maternal History Items: Heart Disease, Pulmonary Disease Paternal History Items: Heart Disease Lives: Spouse/ Significant Other Smoking Status: Never smoker Alcohol: None Drugs: None Objective: Vital Signs Temp Pulse Resp BP Pulse Ox 97.5 F L 74 13 143/55 H 98 08/22/20 14:00 08/22/20 19:00 08/22/20 19:00 08/22/20 19:00 08/22/20 19:00 Oxygen Flow Rate (L/min) 2 Oxygen Delivery Method Room Air Weight: 182 lb 5.156 oz Body Mass Index (BMI) 28.6 Intake and Output for Last 24 Hours 08/20/20 08/21/20 08/22/20 23:59 23:59 23:59 Intake Total 1540 / 1540 Output Total 250 / 250 Balance 1290 / 1290 14 point review of system was done. Pertinent positive are mentioned in HPI. Physical Exam GENERAL: Chronically ill-appearing. VITAL SIGNS: please see collected data HEENT: Exam is benign. Normocephalic and atraumatic. Oral mucosa is pink and moist. NECK: Jugular venous pulsations are normal. Carotid upstrokes are palpable bilaterally. There is no audible bruit. LUNGS: Creased breath sound to Auscultation Bilaterally, No rales, rhonchi or wheezes CARDIAC: Regular rhythm and rate. S1 and S2 with MARION at apex, no rub, or gallop appreciated. The point of maximal impulse is normal. ABDOMEN: Obese, soft with active bowel sounds. No organomegaly. No audible bruit. Nontender To Palpation EXTREMITIES: Femoral pulses were deferred. No Lower extremities edema. Pulse +2/4 OMM: Patient was examined in supine position; there was no acute tissue changes other stated in Lymphs: No lymphadenopathy Neuro: Lethargic looking. 08/22/20 04:00: WBC 10.0, RBC 4.89, Hgb 13.9, Hct 41.5, MCV 84.9, MCH 28.4, MCHC 33.5, Plt Count 253, MPV 9.2, Immature Gran % (Auto) 2.100 H, Neut % (Auto) 81.0 H, Lymph % (Auto) 9.4 L, [place] % (Auto) 7.2, Eos % (Auto) 0.1, Baso % (Auto) 0.2, Absolute Neuts (auto) 8.1 H, Nucleated RBC % 0 08/22/20 04:00: PT 12.9, INR 1.0 08/22/20 04:00: Sodium 132 L, Potassium 3.2 L, Chloride 97 L, Carbon Dioxide 25.0, Anion Gap 10, BUN 23 H, Creatinine 0.92, Est GFR (MDRD) Af Amer 77, Est GFR (MDRD) Non-Af 64, BUN/Creatinine Ratio 25.0 H, Glucose 110 H, Calcium 8.2 L, Total Bilirubin 0.70, Troponin I < 0.015 08/22/20 04:00: Phosphorus 3.1, Magnesium 2.0 08/22/20 16:45: Magnesium 1.8 08/22/20 16:45: Potassium 3.7 Rhythm: EKG: ECHO: Stress Test: Cardiac Cath: PCI: CT Surgery: Holter monitor: EPS: PPM: CXR: Chest CT Scan: Assessment/Plan Impression and recommendation + Paroxysmal atrial fibrillation in the presence of cerebellar stroke -Cerebellar stroke is not commonly a cardiac embolic phenomenon, however we cannot rule it out completely. If indicated, the patient may need a JYOTHI for further evaluation. Meanwhile, the patient will likely need to be on anticoagulation. At this time the patient is in the. Of possible hemorrhagic conversion hence we do not recommend starting anticoagulation at this time. We recommend continue with aspirin and Plavix therapy at this time. -We recommend starting the patient on metoprolol 12.5 mg twice daily at this time. -Echo is pending to evaluate for evidence structure -The patient may need a Holter or an event recorder outpatient for further evaluation of atrial fibrillation burden. + Cerebellar stroke -Pain is well above, neurology team is following. + Recent COVID-19 pneumonia Team is managing + Hypertension -Monitor for now + Hyperlipidemia On statin therapy
[2020-08-23] VITALS (24 sets, daily range): BP systolic 114–163; BP diastolic 47–82; PULSE 81–109; RESP 15–22; TEMP 36.6–39.4; O2SAT 91–100; BMI 28.6
[2020-08-23] MEDS: Acetaminophen 500 MG Tablet 1000 MG PO (01:07)
[2020-08-23] MEDS: 0.9% Saline Lock 10 ML Syringe IV (03:23)
[2020-08-23 03:31] LABS: Absolute Lymphocyte Count 0.54 X10^3/uL (0.83-4.51); Absolute Neutrophil Count 7.1 X10^3/uL (2.0-7.7); Basophil# 0.02 X10^3/uL; Basophil% 0.2 % (0-1); Hematocrit 36.5 % (37-47); Hemoglobin 12.1 g/dL (12.0-15.0); Lymphocyte # 0.54 X10^3/ul (4.0); Lymphocyte % 6.6 % (19-41); Mean Corp Hgb Conc 33.2 g/dL (32-36); Mean Corpuscular Hgb 29.2 pg (27.0-32.0); Monocyte# 0.43 X10^3/uL; Monocyte% 5.2 % (0-10); NRBC Flagged by Analyzer 0 % (0-5); Neutrophil # 7.07 X10^3/uL (2.7-7.7); Neutrophil % 86.3 % (47-70); POSITIVE DIFFERENTIAL YES; Platelet Count 177 K/mm3 (150-450); RBC Distribution Width CV 13.1 % (11.6-14.6); RBC Distribution Width SD 41.5 fl (35.1-43.9); Red Blood Count 4.15 M/mm3 (4.2-5.4); White Blood Count 8.2 K/mm3 (4.4-11.0)
[2020-08-23 03:32] LABS: Differential Indicated SCAN CRITERIA MET
[2020-08-23 03:46] LABS: Anion Gap 8 (5-15); BUN 11 mg/dL (7-18); BUN/Creat Ratio 18.6 RATIO (10-20); Calcium,Total 7.4 mg/dL (8.5-10.1); Chloride 103 mmol/L (98-107); Cholesterol 109 mg/dL (200); Creatinine, Serum 0.59 mg/dL (0.55-1.02); EST Glomerular Filtration Rate 106 mL/min (>60); Est Glom Filt Rate - Afr Amer 128 mL/min (>60); Estimated Creatinine Clearance 48.72 ml/min; Glucose 101 mg/dL (74-106); High Density Lipoprotein 39 mg/dL; Sodium Level 135 mmol/L (136-145); Triglycerides 159 mg/dL; Very Low Density Lipoprotein 32 mg/dL (5-40)
--- NOTE | 2020-08-23 05:55 | MRI_ITS ---
STUDY: MRI BRAIN WITH CONTRAST REASON FOR EXAM: Female, 75 years old. SEIZURE TECHNIQUE: Standardized multiplanar fat and water weighted pulse sequences were obtained. 15CC IV DOTAREM was administered for the contrast portion of the examination. COMPARISON: 08/22/2020 FINDINGS: Normal size of the ventricles and extra-axial spaces for the patient''s age. There are a limited number of small white matter signal abnormality, distributed throughout the deep white matter tracts of the cerebral hemispheres, consistent with mild chronic white matter ischemic changes. There is a small subacute infarct in the left cerebellar hemisphere noted on the previous study. Normal bilateral basal ganglia. Normal thalami. There is no extra-axial fluid accumulation. Normal flow voids within the major intracranial circulation suggesting patency by spin echo criteria. Normal venous enhancement. There is no enhancing intra-axial or extra-axial abnormality. Normal sella turcica, pituitary gland, infundibular stalk, optic chiasm and hypothalamus. Normal tectal plate and pineal gland. Normal midbrain, fifi and medulla. Normal cerebellum. Normal basal cisterns. Normal bilateral temporal bones. Normal bilateral internal auditory canals. No demonstrated orbital abnormality, within the constraints of a routine brain study. Normal visualized paranasal sinuses. Normal calvarium and skull base. Normal visualized soft tissue structures. Normal visualized upper cervical spine. MRI/Brain WITH Contrast IMPRESSION: Involutional changes of the brain, as described above. There is no evidence of intracranial neoplasm. Electronically Signed: Julita Mendez, at 14:10 EST Tel , Service support ,
--- NOTE | 2020-08-23 05:55 | ECHOL_ITS ---
Reason For Study: CVA Procedure This was a limited 2D transthoracic echocardiogram. The study was technically difficult. Due to patient discomfort. Exam performed portable in ICU/CCU. The exam was abbreviated due to the COVID 19 protocol. Left Ventricle Normal LV size. No evidence of intracardiac clot. The estimated ejection fraction is 70 %. Unable to assess diastolic dysfunction. No regional wall motion abnormalities noted. Right Ventricle Normal RV size. Normal systolic function. Atria Normal left atrium. Normal right atrium. No doppler evidence for ASD. Bubble contrast study negative for right to left interatrial shunt. Mitral Valve There is no mitral valve stenosis. No mitral valve insufficiency. Tricuspid Valve There is no tricuspid stenosis. Unable to estimate RV systolic pressure due to inadequate jet, pulmonary artery pressure probably normal. Aortic Valve Trisinus/trileaflet aortic valve. There is no aortic stenosis. No aortic valve insufficiency. Pulmonic Valve No pulmonic valve insufficiency. Great Vessels Normal aortic root. Pericardium/Pleural No pericardial effusion. Medication Performed a rapid injection of agitated mix of 9 cc saline and 1cc air to assess for atrial septal defect. MMode/2D Measurements & Calculations LVIDd: 4.0 cm IVSd: 1.1 cm Ao root diam: 3.5 cm LVIDs: 2.4 cm LVPWd: 1.1 cm FS: 40.3 % LAV(MOD-bp): 67.5 ml LA A4 area: 20.5 cm2 LA dimension(2D): 3.6 cm LAV(MOD-bp) Indexed: 34.9 ml/m2 LAV(MOD-sp2): 61.4 ml LAV(MOD-sp4): 63.7 ml Interpretation Summary The estimated ejection fraction is 70 %. Unable to assess diastolic dysfunction. Bubble contrast study negative for right to left interatrial shunt. No evidence of intracardiac clot The study was technically limited. Ordering Physician: Naseem Rios Referring Physician: ADAM PCP Performed By: Kerri Poole RDCS, RVT
--- NOTE | 2020-08-23 07:46 | PN_ITS ---
Patient Problems: Active and Suspected Problems (Last Reviewed 08/13/20 @ 03:[address] Favio Coffman MD) Confusion (Acute) Cerebellar stroke (Acute) Seizure (Acute) Syncope (Acute) Reason for Visit: Follow-up for seizure, stroke Objective: Patient had one-time T 100.6 ?F low-grade fever. Currently afebrile. 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 EKG during this admission and previous admission sinus rhythm. On 2 L of oxygen. No seizure episode overnight. Physical exam General: Mild lethargic, Oriented x3, Cooperative HEENT: Atraumatic, PERRLA, EOMI, Normocephalic Oral: No Gingival or Mucosal Lesions/ Ulcerations Neck: Supple, No JVD, Negative Carotid Bruits Lungs: Air entry diminished in bilateral lung bases. No crepitation/rhonchi Cardiovascular: Regular rate, Regular Rhythm, Normal S1, Normal S2, No murmurs Abdomen: Bowel Sounds Present, Soft, Non Tender, Non-Distended : No renal angle tenderness. No suprapubic tenderness. Extremities: Mild bilateral ankle edema, Capillary Refill Less than 3 Seconds Skin: No rashes, No breakdown Musculoskeletal: No Tenderness to Palpation of Joints or Extremities Neurological: No muscle rigidity, gross sensation equal and symmetrical. Cranial nerves II-XII grossly intact, Deep Tendon Reflexes 2+/4. Psych/Mental Status: Lethargic. Vitals/I&O's: Vital Signs Temp Pulse Resp BP Pulse Ox 98.2 F 86 22 H 140/49 H 99 08/23/20 04:00 08/23/20 07:27 08/23/20 07:00 08/23/20 07:00 08/23/20 07:00 Oxygen Flow Rate (L/min) 2 Oxygen Delivery Method Nasal Cannula Weight: 179 lb Body Mass Index (BMI) 28.6 Intake and Output for Last 24 Hours 08/21/20 08/22/20 08/23/20 23:59 23:59 23:59 Intake Total 3540 / 3540 340 / 340 Output Total 250 / 250 800 / 800 Balance 3290 / 3290 -460 / -460 Laboratory Results 08/22/20 04:00: Phosphorus 3.1, Magnesium 2.0 08/22/20 16:45: Magnesium 1.8 12/27/20 16:45: Potassium 3.7 08/23/20 03:20: Sodium 135 L, Potassium 3.0 L, Chloride 103, Carbon Dioxide 24.0, Anion Gap 8, BUN 11, Creatinine 0.59, Estim Creat Clear Calc 48.72, Est GFR (MDRD) Af Amer 128, Est GFR (MDRD) Non-Af 106, BUN/Creatinine Ratio 18.6, Glucose 101, Calcium 7.4 L, Triglycerides 159, Cholesterol 109, LDL Cholesterol 38, VLDL Cholesterol 32, HDL Cholesterol 39 L 08/23/20 03:20: WBC 8.2, RBC 4.15 L, Hgb 12.1, Hct 36.5 L, MCV 88.0, MCH 29.2, MCHC 33.2, RDW Std Deviation 41.5, RDW Coeff of [place] 13.1, Plt Count 177, MPV 9.0, Immature Gran % (Auto) 1.700 H, Neut % (Auto) 86.3 H, Lymph % (Auto) 6.6 L, [place] % (Auto) 5.2, Eos % (Auto) 0.0, Baso % (Auto) 0.2, Absolute Neuts (auto) 7.1, Absolute Lymphs (auto) 0.54 L, Nucleated RBC % 0 08/23/20 03:20: Hemoglobin A1c Pending Current Medications Acetaminophen (Acetaminophen 325 Mg Tablet) 650 mg PO Q6H PRN PRN PRN Reason: Pain Score 1-10/Temp > 100.7 F Last Admin: 08/22/20 18:40 Dose: 650 mg Documented by: Aspirin (Aspirin E.C. 81 Mg Tablet) 81 mg PO DAILY [facility] Atorvastatin Calcium (Atorvastatin Calcium 40 Mg Tablet) 40 mg PO DAILY [facility] Last Admin: 08/22/20 10:41 Dose: 40 mg Documented by: Clopidogrel Bisulfate (Clopidogrel Bisulfate 75 Mg Tablet) 75 mg PO DAILY [facility] Last Admin: 08/22/20 16:30 Dose: 75 mg Documented by: Enoxaparin Sodium (Enoxaparin 40 Mg/0.4 Ml Syringe) 40 mg SC DAILY [facility] Last Admin: 08/22/20 10:41 Dose: 40 mg Documented by: Hydralazine HCl (Hydralazine 20 Mg/Ml Vial) 5 mg IV Q30M PRN PRN Reason: to maintain BP goals Sodium Chloride () 1,000 mls @ 75 mls/hr IV .[id number] [facility] Stop: 08/23/20 10:43 Last Admin: 08/22/20 21:45 Dose: 75 mls/hr Documented by: Levetiracetam 500 mg/ Sodium (Chloride) 105 mls @ 400 mls/hr IV Q12 [facility] Labetalol HCl (Labetalol (Prefilled) 20 Mg/4 Ml) 10 - 20 mg IV Q10M PRN PRN PRN Reason: to Maintain BP Goals Metoprolol Succinate (Metoprolol(Xl)Succ 50 Mg Tablet) 50 mg PO DAILY [facility] Last Admin: 08/22/20 10:41 Dose: 50 mg Documented by: Ondansetron HCl (Ondansetron 4 Mg/2 Ml Vial) 4 mg IV Q8H PRN PRN PRN Reason: NAUSEA/VOMITING Pantoprazole Sodium (Pantoprazole Sodium 20 Mg Tablet) 20 mg PO DAILY [facility] Last Admin: 08/22/20 10:41 Dose: 20 mg Documented by: Potassium Chloride (Potassium Chloride 20 Meq Tablet) 40 meq PO X1 ONE Stop: 08/23/20 08:01 Senna/Docusate Sodium (Senna/Docusate Sodium 1 Tablet) 2 tablet PO BID PRN PRN PRN Reason: Constipation Sodium Chloride (0.9% Saline Lock 10 Ml Syringe) 10 - 40 ml IV UD PRN PRN Reason: SALINE FLUSH Last Admin: 08/23/20 03:23 Dose: 20 ml Documented by: STROKE Vital Signs/Narrative: Vital Signs Temp Pulse Resp BP Pulse Ox 08/23/20 07:27 86 08/23/20 07:00 87 22 H 140/49 H 99 08/23/20 06:00 88 20 H 133/48 H 97 08/23/20 05:00 98 16 148/55 H 95 08/23/20 04:00 98.2 F 81 18 132/62 H 96 Medical Necessity - Tobacco Use Smoking Status: Never smoker Assessment/Plan All Active Problems (Last Reviewed 08/13/20 @ 03:[address] Favio Coffman MD) Confusion (Acute) Cerebellar stroke (Acute) Seizure (Acute) Syncope (Acute) This is a 75-year-old female is admitted for dizziness, lightheadedness and generalized tonic-clonic seizure witnessed by the admitting hospitalist in the ER while sitting on the commode. She had postictal confusion. She had also fallen couple times at home after recent discharge. She also had fall and a laceration in the right frontal scalp which was sutured in ED. Patient was earlier admitted between 08/13 to 08/15/2024 syncope after 2 doses of [place]. Orthostatic vital signs were negative for postural hypotension or tac hycardia. She had 4 days of remdesivir and completed Decadron. She also had a strep group B colonization for which she received 2 doses of ceftriaxone 1 g daily. #1 Syncopal episode/new onset generalized tonic-clonic seizure: Patient is admitted in PCU status. She denies any previous history of seizure.CT scan brain showed no acute findings. EKG normal sinus rhythm at 99 bpm, QTC 420 ms. Previous EKG on 08/13 was also sinus rhythm. Troponin negative. Patient had MRI brain which showed 7 mm small acute left cerebellar infarct. On the standard stroke protocol. CT angiogram of head and neck and MRI brain with contrast was done as per [facility] neurology recommendation. Reports pending. Patient on aspirin, Plavix and high intensity statin. EEG reported no epileptiform discharges or seizure patterns or lateralizing signs. Patient is on Keppra 500 mg twice daily after loading dose 1 g on 08/22. PT OT and speech evaluation. As per nursing staff, patient said, he had cluster headache at home but does not remember the name of medication. Reserve Operator was also consulted as per neurology recommendation looking for embolic stroke. Dr. Acevedo consult reviewed and states paroxysmal A. fib but patient denies history of A. fib and on potato seed cutter and EKG shows sinus rhythm. On Toprol-XL 50 mg daily. 2D echo ordered. Fasting profile shows LDL 38, triglyceride 159. A1c 6.2 suggestive of prediabetes #2 recent bilateral COVID-19 pneumonia: She was discharged from the hospital on August 15, 2020: Patient completed the course of Decadron and she had remdesivir while in the hospital during previous admission. Denies shortness of breath, cough or sputum production. Time fever today. CTA chest reported no PE or arterial dissection. Ill-defined subpleural groundglass opacity more prominent in the lung bases suggestive of atypical pneumonia COVID-19 pneumonia. #3 hyponatremia/hypokalemia: Unclear etiology. Still has hyponatremia and hypokalemia: Magnesium 1.8. Phosphorus 3.2. On IV fluid. Potassium getting replaced. #4 closed head injury/right frontal scalp laceration: Laceration sutured, CT scan brain showed no acute findings. #5 hypertension: Blood pressure slight elevated, continue metoprolol, blood pressure as per stroke protocol. #6 hyperlipidemia: Continue statins. #7 GERD: Continue PPI. #8 DVT prophylaxis: Subcu Lovenox. Total time of the visit including total time spent in counseling or coordination of care, (more than 50% of the total time, spent in obtaining medical information from nurses and other ancillary care providers,explaining to the patient about labs, imaging, diagnosis and management), patient with consultants, review of labs and imaging is 30 minutes. Inpatient E&M: [id number] [facility] L3
[2020-08-23 07:48] LABS: Hemoglobin A1c 6.2 % (3.8-5.6)
[2020-08-23 08:17] LABS: Magnesium 1.8 mg/dL (1.6-2.6)
[2020-08-23] MEDS: Enoxaparin 40 MG/0.4 ML Syringe SC (08:37)
[2020-08-23] MEDS: Pantoprazole Sodium 20 MG Tablet PO (08:38)
[2020-08-23] MEDS: Aspirin E.C. 81 MG Tablet PO (08:38)
[2020-08-23] MEDS: Acetaminophen 325 MG Tablet 650 MG PO ×3 (08:38→21:57)
[2020-08-23] MEDS: Clopidogrel Bisulfate 75 MG Tablet PO (08:39)
[2020-08-23] MEDS: Metoprolol(XL)Succ 50 MG Tablet PO (08:39)
[2020-08-23] MEDS: Atorvastatin Calcium 40 MG Tablet PO (08:39)
--- NOTE | 2020-08-23 10:30 | CT_ITS ---
STUDY: CTA HEAD AND NECK WITH CONTRAST REASON FOR EXAM: Female, 75 years old. LEFT SIDED CEREBELLAR STROKE. PT +COVID HAVING DIZZINESS. LIGHTHEADED, SYNCOPE. HX OF SEIZURES HTN RADIATION DOSAGE (If Supplied By Facility): CTDIvol = ( 27.93 ) mGy, DLP = ( 1537.07 ) mGycm TECHNIQUE: CT angiography was performed with a multi-detector CT scanner. Data acquisition was obtained from the skull base through the vertex following intravenous administration of IV 100mL [id number]-370. MIP images were reconstructed from the axial data set. Post-processing of the angiographic images was performed, with multiplanar reformation and 3D reconstruction. Individualized dose optimization techniques were used for this CT. COMPARISON: No relevant priors. FINDINGS: Normal bilateral petrous carotid arteries. Normal right cavernous carotid artery with a normal supraclinoid bifurcation. Normal left cavernous carotid artery with a normal supraclinoid bifurcation. Normal right A1 segments of the anterior cerebral artery. Normal left A1 segments of the anterior cerebral artery. Normal intact anterior communicating artery (ACOM). Normal bilateral A2 segments of the anterior cerebral arteries. Normal right M1 and M2 segments of the middle cerebral arteries, with a normal M1 bifurcation. Normal left M1 and M2 segments of the middle cerebral arteries, with a normal M1 bifurcation. Normal right posterior communicating artery (PCOM). There is a persistent origin of the left posterior cerebral artery with absence of the posterior communicating artery (PCOM). There is a small atretic right vertebral artery with a dominant left vertebral artery. Normal basilar artery with a normal basilar bifurcation. The visualized bilateral superior cerebellar (SCA) arteries are normal. Normal bilateral P1, P2 and visualized P3 segments of the posterior cerebral arteries. There is no demonstrated aneurysm of the [place]. There is no demonstrated abnormality of the visualized brain. AORTIC ARCH: There is atherosclerotic calcific plaque formation of the aortic arch and great vessels arising from the aortic arch, without a hemodynamically significant stenosis. RIGHT CAROTID ARTERIES: Normal right common carotid artery (CCA). There is mild atherosclerotic plaque formation with minimal narrowing of the right carotid bulb. Normal origin of the right internal carotid (ICA) artery without a hemodynamically significant stenosis. Normal visualized cervical portion of the right internal carotid artery. Normal origin of the right external carotid artery (ECA). LEFT CAROTID ARTERIES: Normal left common carotid artery (CCA). There is mild atherosclerotic plaque formation with minimal narrowing of the left carotid bulb. Normal origin of the left internal carotid (ICA) artery without a hemodynamically significant stenosis. Normal visualized cervical portion of the left internal carotid artery. Normal origin of the left external carotid artery (ECA). VERTEBRAL ARTERIES: There is enhancement within the bilateral vertebral arteries with a small right vertebral artery, and a dominant left vertebral artery. There is moderate atherosclerotic disease at the origin of the left vertebral artery. CT/CTA Head AND Neck W/ Contrast IMPRESSION: No significant stenosis of the arteries in the neck. There is no evidence of aneurysmal dilatation of intracranial arteries. Electronically Signed: Julita Mendez, at 13:02 EST Tel , Service support ,
--- NOTE | 2020-08-23 16:56 | NURSING ---
REport called to [id number] Jcarlos. Patient transferred to [id number] Called and notified of transfer. and room number/ nurses station number
[2020-08-24] VITALS (17 sets, daily range): BP systolic 113–135; BP diastolic 49–82; PULSE 89–117; RESP 18–24; TEMP 36.7–38.6; O2SAT 91–96; BMI 28.6
[2020-08-24] MEDS: Acetaminophen 325 MG Tablet 650 MG PO ×3 (04:35→21:06)
[2020-08-24 07:02] LABS: Absolute Lymphocyte Count 0.72 X10^3/uL (0.83-4.51); Absolute Neutrophil Count 6.7 X10^3/uL (2.0-7.7); Basophil# 0.01 X10^3/uL; Basophil% 0.1 % (0-1); Hematocrit 35.4 % (37-47); Hemoglobin 11.6 g/dL (12.0-15.0); Lymphocyte # 0.72 X10^3/ul (4.0); Lymphocyte % 9.3 % (19-41); Mean Corp Hgb Conc 32.8 g/dL (32-36); Mean Corpuscular Hgb 28.5 pg (27.0-32.0); Mean Platelet Vol. 9.4 fl (6.2-12.0); Monocyte# 0.18 X10^3/uL; Monocyte% 2.3 % (0-10); NRBC Flagged by Analyzer 0 % (0-5); Neutrophil # 6.66 X10^3/uL (2.7-7.7); Neutrophil % 86.4 % (47-70); Platelet Count 151 K/mm3 (150-450); RBC Distribution Width CV 13.2 % (11.6-14.6); RBC Distribution Width SD 41.8 fl (35.1-43.9); Red Blood Count 4.07 M/mm3 (4.2-5.4); White Blood Count 7.7 K/mm3 (4.4-11.0)
--- NOTE | 2020-08-24 09:50 | PCM.PN.HOSP ---
Patient Problems: Active and Suspected Problems (Last Reviewed 08/13/20 @ 03:[address] Favio Coffman MD) Confusion (Acute) Cerebellar stroke (Acute) Seizure (Acute) Syncope (Acute) Reason for Visit: Follow-up for seizure, and stroke and intermittent fever. Objective: Patient having intermittent low-grade fever T-max 101.9 Fahrenheit last night. Currently afebrile. She is more awake and alert. No cough, shortness of breath, chest tightness or pressure. Denies burning exertional related symptoms. Patient is states she has history of cluster headache but took last headache pill about 2 years ago. She does not remember headache pill. Physical exam General: Alert, Oriented x3, Cooperative HEENT: Atraumatic, PERRLA, EOMI, Normocephalic Oral: No Gingival or Mucosal Lesions/ Ulcerations Neck: Supple, No JVD, Negative Carotid Bruits Lungs: Air entry diminished in bilateral lung bases. No crepitation/rhonchi. No hypoxia Cardiovascular: Regular rate, Regular Rhythm, Normal S1, Normal S2, No murmurs Abdomen: Bowel Sounds Present, Soft, Non Tender, Non-Distended : No renal angle tenderness. No suprapubic tenderness. Extremities: No edema, Capillary Refill Less than 3 Seconds Skin: No rashes, No breakdown Musculoskeletal: No Tenderness to Palpation of Joints or Extremities Neurological: Cranial nerves II-XII grossly intact, Deep Tendon Reflexes 2+/4 and Symmetrical, Neuro grossly intact Psych/Mental Status: Normal Affect, Appropriate. Vitals/I&O's: Vital Signs Temp Pulse Resp BP Pulse Ox 98.8 F 89 18 134/49 H 95 08/24/20 02:00 08/24/20 07:22 08/24/20 02:00 08/24/20 02:00 08/24/20 02:00 Oxygen Flow Rate (L/min) 2 Oxygen Delivery Method Room Air Weight: 181 lb 14.102 oz Body Mass Index (BMI) 28.6 Intake and Output for Last 24 Hours 08/22/20 08/23/20 08/24/20 23:59 23:59 23:59 Intake Total 3540 / 3540 1800.00 / 1920.00 120 / 120 Output Total 250 / 250 1350 / 1500 150 / 150 Balance 3290 / 3290 450.00 / 420.00 -30 / -30 Laboratory Results 08/24/20 06:35: WBC 7.7, RBC 4.07 L, Hgb 11.6 L, Hct 35.4 L, MCV 87.0, MCH 28.5, MCHC 32.8, RDW Std Deviation 41.8, RDW Coeff of [place] 13.2, Plt Count 151, MPV 9.4, Immature Gran % (Auto) 1.900 H, Neut % (Auto) 86.4 H, Lymph % (Auto) 9.3 L, [place] % (Auto) 2.3, Eos % (Auto) 0.0, Baso % (Auto) 0.1, Absolute Neuts (auto) 6.7, Absolute Lymphs (auto) 0.72 L, Nucleated RBC % 0 Current Medications Acetaminophen (Acetaminophen 325 Mg Tablet) 650 mg PO Q6H PRN PRN PRN Reason: Pain Score 1-10/Temp > 100.7 F Last Admin: 08/24/20 04:35 Dose: 650 mg Documented by: Aspirin (Aspirin E.C. 81 Mg Tablet) 81 mg PO DAILY [facility] Last Admin: 08/23/20 08:38 Dose: 81 mg Documented by: Atorvastatin Calcium (Atorvastatin Calcium 40 Mg Tablet) 40 mg PO DAILY [facility] Last Admin: 08/23/20 08:39 Dose: 40 mg Documented by: Clopidogrel Bisulfate (Clopidogrel Bisulfate 75 Mg Tablet) 75 mg PO DAILY [facility] Last Admin: 08/23/20 08:39 Dose: 75 mg Documented by: Enoxaparin Sodium (Enoxaparin 40 Mg/0.4 Ml Syringe) 40 mg SC DAILY [facility] Last Admin: 08/23/20 08:37 Dose: 40 mg Documented by: Hydralazine HCl (Hydralazine 20 Mg/Ml Vial) 5 mg IV Q30M PRN PRN Reason: to maintain BP goals Levetiracetam 500 mg/ Sodium (Chloride) 105 mls @ 400 mls/hr IV Q12 [facility] Last Infusion: 08/23/20 20:38 Dose: Infused Documented by: Labetalol HCl (Labetalol (Prefilled) 20 Mg/4 Ml) 10 - 20 mg IV Q10M PRN PRN PRN Reason: to Maintain BP Goals Metoprolol Succinate (Metoprolol(Xl)Succ 50 Mg Tablet) 50 mg PO DAILY [facility] Last Admin: 08/23/20 08:39 Dose: 50 mg Documented by: Ondansetron HCl (Ondansetron 4 Mg/2 Ml Vial) 4 mg IV Q8H PRN PRN PRN Reason: NAUSEA/VOMITING Pantoprazole Sodium (Pantoprazole Sodium 20 Mg Tablet) 20 mg PO DAILY [facility] Last Admin: 08/23/20 08:38 Dose: 20 mg Documented by: Senna/Docusate Sodium (Senna/Docusate Sodium 1 Tablet) 2 tablet PO BID PRN PRN PRN Reason: Constipation Sodium Chloride (0.9% Saline Lock 10 Ml Syringe) 10 - 40 ml IV UD PRN PRN Reason: SALINE FLUSH Last Admin: 08/23/20 03:23 Dose: 20 ml Documented by: STROKE Vital Signs/Narrative: Vital Signs Pulse 08/24/20 07:22 89 Medical Necessity - Tobacco Use Smoking Status: Never smoker Assessment/Plan All Active Problems (Last Reviewed 08/13/20 @ 03:[address] Favio Coffman MD) Confusion (Acute) Cerebellar stroke (Acute) Seizure (Acute) Syncope (Acute) This is a 75-year-old female is admitted for dizziness, lightheadedness and generalized tonic-clonic seizure witnessed by the admitting hospitalist in the ER while sitting on the commode. She had postictal confusion. She had also fallen couple times at home after recent discharge. She also had fall and a laceration in the right frontal scalp which was sutured in ED. Patient was earlier admitted between 08/13 to 08/15/2024 syncope after 2 doses of [place]. Orthostatic vital signs were negative for postural hypotension or tachycardia. She had 4 days of remdesivir and completed Decadron. She also had a strep group B colonization for which she received 2 doses of ceftriaxone 1 g daily. #1 Syncopal episode/new onset generalized tonic-clonic seizure: Patient is admitted in PCU status. She denies any previous history of seizure.CT scan brain showed no acute findings. EKG normal sinus rhythm at 99 bpm, QTC 420 ms. Previous EKG on 08/13 was also sinus rhythm. Troponin negative. Patient had MRI brain which showed 7 mm small acute left cerebellar infarct. On the standard stroke protocol. CT angiogram of head and neck and MRI brain with contrast was done as per [facility] neurology recommendation. Reports pending. Patient on aspirin, Plavix and high intensity statin. EEG reported no epileptiform discharges or seizure patterns or lateralizing signs. Patient is on Keppra 500 mg twice daily after loading dose 1 g on 08/22. PT OT and speech evaluation. As per nursing staff, patient said, he had cluster headache at home but does not remember the name of medication. [employer] was also consulted as per neurology recommendation looking for embolic stroke. Dr. Acevedo consult reviewed and states paroxysmal A. fib but patient denies history of A. fib and on personnel monitor and EKG shows sinus rhythm. On Toprol-XL 50 mg daily. 2D echo was ordered. Fasting profile shows LDL 38, triglyceride 159. A1c 6.2 suggestive of prediabetes 08/24: 2D echo is pending. Heart rate and blood pressure controlled. No hypoxia. #2 recent bilateral COVID-19 pneumonia: She was discharged from the hospital on August 15, 2020: Patient completed the course of Decadron and she had remdesivir while in the hospital during previous admission. Denies shortness of breath, cough or sputum production. Time fever today. CTA chest reported no PE or arterial dissection. Ill-defined subpleural groundglass opacity more prominent in the lung bases suggestive of atypical pneumonia COVID-19 pneumonia. 08/24: Intermittently patient having intermittent fever, T-max 103.0 Fahrenheit. Patient does not have any focal symptoms. Denies dysuria or change in urinary tract symptoms. Blood cultures x2, UA with urine culture ordered. Discussed with ID. May be remnant symptoms of Covid 19. #3 hyponatremia/hypokalemia: Unclear etiology. Still has hyponatremia and hypokalemia: Magnesium 1.8. Phosphorus 3.2. On IV fluid. Potassium getting replaced. #4 closed head injury/right frontal scalp laceration: Laceration sutured, CT scan brain showed no acute findings. #5 hypertension: Blood pressure slight elevated, continue metoprolol, blood pressure as per stroke protocol. #6 hyperlipidemia: Continue statins. #7 GERD: Continue PPI. #8 DVT prophylaxis: Subcu Lovenox. Total time of the visit including total time spent in counseling or coordination of care, (more than 50% of the total time, spent in obtaining medical information from nurses and other ancillary care providers,explaining to the patient about labs, imaging, diagnosis and management), patient with consultants, review of labs and imaging is 30 minutes. I talked to the patient's and Dr. Greene and give the clinical update including labs, imaging and vitals. Inpatient E&M: 96337 Subs Hosp L2
[2020-08-24] MEDS: Pantoprazole Sodium 20 MG Tablet PO (10:17)
[2020-08-24] MEDS: Metoprolol(XL)Succ 50 MG Tablet PO (10:17)
[2020-08-24] MEDS: Enoxaparin 40 MG/0.4 ML Syringe SC (10:17)
[2020-08-24] MEDS: Clopidogrel Bisulfate 75 MG Tablet PO (10:18)
[2020-08-24] MEDS: Atorvastatin Calcium 40 MG Tablet PO (10:18)
[2020-08-24] MEDS: Aspirin E.C. 81 MG Tablet PO (10:21)
[2020-08-24] MEDS: Senna/Docusate Sodium 1 Tablet 2 TABLET PO (10:54)
[2020-08-24 11:04] LABS: Mucous, Urine 0 SEEN /hpf (<or=2+); Red Blood Cells-Urine 0 SEEN /hpf (0-5); Squamous Epithelial Cells - UA 0 SEEN /hpf (5-10); White Blood Cells 0 SEEN /hpf (0-5)
[2020-08-24 11:06] LABS: Color, Urine Yellow (Yellow); Glucose, Dipstick Normal (Normal); Ketone-Dipstick 5 mg/dl (Negative); Leukocyte Esterase-Dipstick Negative /ul (Negative); Nitrite-Dipstick Negative (Negative); Occult Blood-Urine Negative /ul (Negative); Protein-Dipstick 15 mg/dl (Negative); Urine Bilirubin Dipstick Negative (Negative); Urine Clarity Sl. Cloudy (Clear); Urine Urobilinogen Normal (Normal)
[2020-08-24 11:14] LABS: Bacteria 3+ /hpf (None Seen)
--- NOTE | 2020-08-24 11:54 | CASEMGMT ---
[facility] Readmission Note: Previous admission: 08/13/2020- DC DISPOSITION: Home DC Diagnosis: COVID-19 F/U phone call was completed. Patient had followed up virtually with her PCP. Current Admission: 08/22/20 Diagnosis: syncopal episode PCP: Dr. Malloy in [place] Patient presented with fall, unresponsiveness at home. She struck her head on the floor and has a laceration on the R frontal scalp. Intro role of CM to patient. [facility] her [facility] able to assist her. DC PLAN: Home on discharge. Patient is currently not on oxygen. Ottoniel CASSIDY RN ACM
[2020-08-24] MEDS: Lactated Ringers 1,000 ML 500 ML IV (17:29)
[2020-08-24 17:40] LABS: Anion Gap 8 (5-15); BUN 9 mg/dL (7-18); BUN/Creat Ratio 16.1 RATIO (10-20); Calcium,Total 7.7 mg/dL (8.5-10.1); Chloride 105 mmol/L (98-107); Creatinine, Serum 0.56 mg/dL (0.55-1.02); EST Glomerular Filtration Rate 113 mL/min (>60); Est Glom Filt Rate - Afr Amer 137 mL/min (>60); Estimated Creatinine Clearance 48.72 ml/min; Glucose 89 mg/dL (74-106); Potassium 3.8 mmol/L (3.5-5.1); Sodium Level 136 mmol/L (136-145)
[2020-08-25] VITALS (18 sets, daily range): BP systolic 99–123; BP diastolic 47–69; PULSE 61–104; RESP 16–22; TEMP 36.1–39.1; O2SAT 90–96; BMI 28.6
[2020-08-25] MEDS: Ibuprofen 600 MG Tablet PO ×2 (02:07→17:06)
[2020-08-25] MEDS: Acetaminophen 325 MG Tablet 650 MG PO ×3 (03:21→22:24)
[2020-08-25 06:02] LABS: Absolute Lymphocyte Count 0.62 X10^3/uL (0.83-4.51); Absolute Neutrophil Count 4.7 X10^3/uL (2.0-7.7); Basophil# 0.01 X10^3/uL; Basophil% 0.2 % (0-1); Hematocrit 33.7 % (37-47); Hemoglobin 10.9 g/dL (12.0-15.0); Lymphocyte # 0.62 X10^3/ul (4.0); Lymphocyte % 11.2 % (19-41); Mean Corp Hgb Conc 32.3 g/dL (32-36); Mean Corpuscular Hgb 28.2 pg (27.0-32.0); Mean Corpuscular Volume 87.3 fL (81-99); Monocyte# 0.17 X10^3/uL; Monocyte% 3.1 % (0-10); NRBC Flagged by Analyzer 0 % (0-5); Neutrophil # 4.69 X10^3/uL (2.7-7.7); Neutrophil % 84.2 % (47-70); Platelet Count 127 K/mm3 (150-450); RBC Distribution Width CV 13.5 % (11.6-14.6); RBC Distribution Width SD 42.5 fl (35.1-43.9); Red Blood Count 3.86 M/mm3 (4.2-5.4); White Blood Count 5.6 K/mm3 (4.4-11.0)
[2020-08-25 06:34] LABS: ALB/GLOB Ratio 0.8 RATIO (0.9-2.4); AST(SGOT) 58 U/L (15-37); Alanine Aminotransfer ALT/SGPT 53 U/L (13-56); Albumin, Serum 2.2 g/dL (3.2-5.0); Alkaline Phosphatase 91 U/L (45-117); Anion Gap 8 (5-15); BUN 11 mg/dL (7-18); BUN/Creat Ratio 18.6 RATIO (10-20); Calcium,Total 7.2 mg/dL (8.5-10.1); Chloride 102 mmol/L (98-107); Creatinine, Serum 0.59 mg/dL (0.55-1.02); EST Glomerular Filtration Rate 106 mL/min (>60); Est Glom Filt Rate - Afr Amer 129 mL/min (>60); Estimated Creatinine Clearance 48.72 ml/min; Globulin 2.7 g/dL (2.2-4.2); Glucose 109 mg/dL (74-106); Potassium 3.4 mmol/L (3.5-5.1); Protein, Total 4.9 g/dL (6.4-8.2); Sodium Level 133 mmol/L (136-145)
[2020-08-25] MEDS: Metoprolol(XL)Succ 50 MG Tablet PO (09:18)
[2020-08-25] MEDS: Clopidogrel Bisulfate 75 MG Tablet PO (09:18)
[2020-08-25] MEDS: Atorvastatin Calcium 40 MG Tablet PO (09:18)
[2020-08-25] MEDS: Aspirin E.C. 81 MG Tablet PO (09:18)
[2020-08-25] MEDS: Enoxaparin 40 MG/0.4 ML Syringe SC (09:18)
[2020-08-25] MEDS: Pantoprazole Sodium 20 MG Tablet PO (09:18)
--- NOTE | 2020-08-25 12:27 | PCM.PN.HOSP ---
Patient Problems: Active and Suspected Problems (Last Reviewed 08/13/20 @ 03:[address] Favio Coffman MD) Confusion (Acute) Cerebellar stroke (Acute) Seizure (Acute) Syncope (Acute) Reason for Visit: Patient having intermittent fever, T-max 102.4 [employer] consultant today around 2 AM, 101.2 and 101.5 Fahrenheit. Patient denies any focal symptoms of infection including cough, shortness of breath, URI, burning micturition increased frequency or urgency, abdominal pain or alteration of bowel habit. Physical exam General: Alert, Oriented x3, Cooperative HEENT: Atraumatic, PERRLA, EOMI, Normocephalic Oral: No Gingival or Mucosal Lesions/ Ulcerations Neck: Supple, No JVD, Negative Carotid Bruits Lungs: Air entry diminished in bilateral lung bases. No crepitation/rhonchi Cardiovascular: Regular rate, Regular Rhythm, Normal S1, Normal S2, No murmurs Abdomen: Bowel Sounds Present, Soft, Non Tender, Non-Distended : No renal angle tenderness. No suprapubic tenderness. Extremities: No edema, Capillary Refill Less than 3 Seconds Skin: No rashes, No breakdown Musculoskeletal: No Tenderness to Palpation of Joints or Extremities Neurological: Cranial nerves II-XII grossly intact, Deep Tendon Reflexes 2+/4 and Symmetrical, Neuro grossly intact Psych/Mental Status: Normal Affect, Appropriate. Vitals/I&O's: Vital Signs Temp Pulse Resp BP Pulse Ox 98 F 87 20 H 112/47 L 95 08/25/20 12:13 08/25/20 12:13 08/25/20 12:13 08/25/20 12:13 08/25/20 12:13 Oxygen Flow Rate (L/min) 2 Oxygen Delivery Method Room Air Weight: 181 lb 3.52 oz Body Mass Index (BMI) 28.6 Intake and Output for Last 24 Hours 08/23/20 08/24/20 08/25/20 23:59 23:59 23:59 Intake Total 1800.00 / 1920.00 1680 / 1680 105 / 105 Output Total 1350 / 1500 750 / 750 800 / 800 Balance 450.00 / 420.00 930 / 930 -695 / -695 Microbiology Past 72 Hours 08/24/20 10:45 Urine, Catheterized Urine Culture - Preliminary Gram positive organism 08/24/20 13:30 Mucosa - Nasopharyngeal Respiratory Panel (PCR) - Final Laboratory Results 08/24/20 06:35: Sodium 136, Potassium 3.8, Chloride 105, Carbon Dioxide 23.0, Anion Gap 8, BUN 9, Creatinine 0.56, Estim Creat Clear Calc 48.72, Est GFR (MDRD) Af Amer 137, Est GFR (MDRD) Non-Af 113, BUN/Creatinine Ratio 16.1, Glucose 89, Calcium 7.7 L 08/25/20 05:28: WBC 5.6, RBC 3.86 L, Hgb 10.9 L, Hct 33.7 L, MCV 87.3, MCH 28.2, MCHC 32.3, RDW Std Deviation 42.5, RDW Coeff of [place] 13.5, Plt Count 127 L, MPV 10.0, Immature Gran % (Auto) 1.300 H, Neut % (Auto) 84.2 H, Lymph % (Auto) 11.2 L, [place] % (Auto) 3.1, Eos % (Auto) 0.0, Baso % (Auto) 0.2, Absolute Neuts (auto) 4.7, Absolute Lymphs (auto) 0.62 L, Nucleated RBC % 0 08/25/20 05:28: Sodium 133 L, Potassium 3.4 L, Chloride 102, Carbon Dioxide 23.0, Anion Gap 8, BUN 11, Creatinine 0.59, Estim Creat Clear Calc 48.72, Est GFR (MDRD) Af Amer 129, Est GFR (MDRD) Non-Af 106, BUN/Creatinine Ratio 18.6, Glucose 109 H, Calcium 7.2 L, Total Bilirubin 0.50, AST 58 H, ALT 53, Alkaline Phosphatase 91, Total Protein 4.9 L, Albumin 2.2 L, Globulin 2.7, Albumin/Globulin Ratio 0.8 L Current Medications Acetaminophen (Acetaminophen 325 Mg Tablet) 650 mg PO Q4H PRN PRN PRN Reason: Pain Score 1-10/Temp > 100.7 F Last Admin: 08/25/20 03:21 Dose: 650 mg Documented by: Aspirin (Aspirin E.C. 81 Mg Tablet) 81 mg PO DAILY [facility] Last Admin: 08/25/20 09:18 Dose: 81 mg Documented by: Atorvastatin Calcium (Atorvastatin Calcium 40 Mg Tablet) 40 mg PO DAILY [facility] Last Admin: 08/25/20 09:18 Dose: 40 mg Documented by: Clopidogrel Bisulfate (Clopidogrel Bisulfate 75 Mg Tablet) 75 mg PO DAILY [facility] Last Admin: 08/25/20 09:18 Dose: 75 mg Documented by: Enoxaparin Sodium (Enoxaparin 40 Mg/0.4 Ml Syringe) 40 mg SC DAILY [facility] Last Admin: 08/25/20 09:18 Dose: 40 mg Documented by: Hydralazine HCl (Hydralazine 20 Mg/Ml Vial) 5 mg IV Q30M PRN PRN Reason: to maintain BP goals Levetiracetam 500 mg/ Sodium (Chloride) 105 mls @ 400 mls/hr IV Q12 [facility] Last Infusion: 08/25/20 10:26 Dose: Infused Documented by: Ampicillin Sodium/Sulbactam (Sodium 3 gm/ Sodium Chloride) 112 mls @ 150 mls/hr IV Q6 [facility] Last Admin: 08/25/20 12:08 Dose: 150 mls/hr Documented by: Ibuprofen (Ibuprofen 600 Mg Tablet) 600 mg PO Q8H PRN PRN PRN Reason: fever, pain 1-10 Last Admin: 08/25/20 02:07 Dose: 600 mg Documented by: Labetalol HCl (Labetalol (Prefilled) 20 Mg/4 Ml) 10 - 20 mg IV Q10M PRN PRN PRN Reason: to Maintain BP Goals Metoprolol Succinate (Metoprolol(Xl)Succ 50 Mg Tablet) 50 mg PO DAILY [facility] Last Admin: 08/25/20 09:18 Dose: 50 mg Documented by: Ondansetron HCl (Ondansetron 4 Mg/2 Ml Vial) 4 mg IV Q8H PRN PRN PRN Reason: NAUSEA/VOMITING Pantoprazole Sodium (Pantoprazole Sodium 20 Mg Tablet) 20 mg PO DAILY [facility] Last Admin: 08/25/20 09:18 Dose: 20 mg Documented by: Potassium Chloride (Potassium Chloride 20 Meq Tablet) 40 meq PO DAILYCM [facility] Stop: 08/28/20 08:01 Senna/Docusate Sodium (Senna/Docusate Sodium 1 Tablet) 2 tablet PO BID PRN PRN PRN Reason: Constipation Last Admin: 08/24/20 10:54 Dose: 1 tablet Documented by: Sodium Chloride (0.9% Saline Lock 10 Ml Syringe) 10 - 40 ml IV UD PRN PRN Reason: SALINE FLUSH Last Admin: 08/23/20 03:23 Dose: 20 ml Documented by: STROKE Vital Signs/Narrative: Vital Signs Temp Pulse Resp BP Pulse Ox 08/25/20 12:13 98 F 87 20 H 112/47 L 95 08/25/20 09:18 77 Medical Necessity - Tobacco Use Smoking Status: Never smoker Assessment/Plan All Active Problems (Last Reviewed 08/13/20 @ 03:[address] Favio Coffman MD) Confusion (Acute) Cerebellar stroke (Acute) Seizure (Acute) Syncope (Acute) This is a 75-year-old female is admitted for dizziness, lightheadedness and generalized tonic-clonic seizure witnessed by the admitting hospitalist in the ER while sitting on the commode. She had postictal confusion. She had also fallen couple times at home after recent discharge. She also had fall and a laceration in the right frontal scalp which was sutured in ED. Patient was earlier admitted between 08/13 to 08/15/2024 syncope after 2 doses of [place]. Orthostatic vital signs were negative for postural hypotension or tachycardia. She had 4 days of remdesivir and completed Decadron. She also had a strep group B colonization for which she received 2 doses of ceftriaxone 1 g daily. #1 Syncopal episode/new onset generalized tonic-clonic seizure: Patient is admitted in PCU status. She denies any previous history of seizure.CT scan brain showed no acute findings. EKG normal sinus rhythm at 99 bpm, QTC 420 ms. Previous EKG on 08/13 was also sinus rhythm. Troponin negative. Patient had MRI brain which showed 7 mm small acute left cerebellar infarct. On the standard stroke protocol. CT angiogram of head and neck and MRI brain with contrast was done as per [facility] neurology recommendation. Reports pending. Patient on aspirin, Plavix and high intensity statin. EEG reported no epileptiform discharges or seizure patterns or lateralizing signs. Patient is on Keppra 500 mg twice daily after loading dose 1 g on 08/22. PT OT and speech evaluation. As per nursing staff, patient said, he had cluster headache at home but does not remember the name of medication. [employer] was also consulted as per neurology recommendation looking for embolic stroke. Dr. Acevedo consult reviewed and states paroxysmal A. fib but patient denies history of A. fib and on fish roe processor and EKG shows sinus rhythm. On Toprol-XL 50 mg daily. 2D echo was ordered. Fasting profile shows LDL 38, triglyceride 159. A1c 6.2 suggestive of prediabetes 08/25: 2D echo was done The estimated ejection fraction is 70 %.Bubble contrast study negative for right to left interatrial shunt. No evidence of intracardiac clot. #2 recent bilateral COVID-19 pneumonia: She was discharged from the hospital on August 15, 2020: Patient completed the course of Decadron and she had remdesivir while in the hospital during previous admission. Denies shortness of breath, cough or sputum production. Time fever today. CTA chest reported no PE or arterial dissection. Ill-defined subpleural groundglass opacity more prominent in the lung bases suggestive of atypical pneumonia COVID-19 pneumonia. 08/24: Intermittently patient having intermittent fever, T-max 103.0 Fahrenheit. Patient does not have any focal symptoms. Denies dysuria or change in urinary tract symptoms. Blood cultures x2, UA with urine culture ordered. Discussed with ID. May be remnant symptoms of Covid 19. 08/25: Patient continued to have fever discussed with the ID. Blood cultures x2 are pending. Preliminary urine culture shows more than 100,000 gram-positive organism. Empirically started on IV Unasyn. #3 hyponatremia/hypokalemia: Unclear etiology. Still has hyponatremia and hypokalemia: Magnesium 1.8. Phosphorus 3.2. On IV fluid. Potassium getting replaced. 08/25: Sodium and potassium are low. Getting replaced. #4 closed head injury/right frontal scalp laceration: Laceration sutured, CT scan brain showed no acute findings. #5 hypertension: Blood pressure slight elevated, continue metoprolol, blood pressure as per stroke protocol. 08/25, blood pressure is normal #6 hyperlipidemia: Continue statins. #7 GERD: Continue PPI. #8 DVT prophylaxis: Subcu Lovenox. Total time of the visit including total time spent in counseling or coordination of care, (more than 50% of the total time, spent in obtaining medical information from nurses and other ancillary care providers,explaining to the patient about labs, imaging, diagnosis and management), patient with consultants, review of labs and imaging is 30 minutes. I talked to the patient's and Dr. Wyenski and give the clinical update including labs, imaging and vitals. Inpatient E&M: 38467 Subs Hosp L2
--- NOTE | 2020-08-25 15:44 | CASEMGMT ---
Social Work Note SW completed PHQ-9 due to pt having stroke. Pt states most of her symptoms are due to having COVID. Pt states she was diagnosed with COVID on 08/14/2020 or 08/15/2020 (pt couldn't remember the exact day) and since then pt has been exhausted, more fatigued, joints have been achy. Pt relates having COVID to little interest or pleasure in doing things, feeling tired or having little energy, and trouble concentrating since COVID hit. Pt states she has always had trouble staying asleep and will only get a few hours of sleep. Pt states she's had to think more about what to say before she says it. SW will speak with pt tomorrow regarding managing symptoms and coping skills. Pt does states she lives with her who is supportive. Hilda Modi PL[employer], [employer]IST [employer]
--- NOTE | 2020-08-25 15:54 | PCM.HP.ID ---
Problem List (1) COVID-19 Status: Chronic Reason for Consult: covid Consulted by: Dr. Rios History of Present Illness: The patient is a 75 year old F with covid sx starting 08/11, came to ED 08/13 and tested (+). Given dex, remdesivir, discharged on dex and cefadroxil for suspected strep uti on 08/15. At home, worsening fever, aches, confusion, not feeling well. No dysuria or urine changes. No n/v/d. No sputum. Came to ED, found to have small cerebellar stroke, still with fever, UA neg but ucx with GNR 100k. Full ROS performed and neg except as noted above. - Medical History Past Medical History (Chronic Problems): Chronic Problems (Last Reviewed 08/13/20 @ 03:[address] Favio Coffman MD) GERD (gastroesophageal reflux disease) (Chronic) Hyperlipidemia (Chronic) Hypertension (Chronic) COVID-19 (Chronic) Allergies/Adverse Reactions: Allergies No Known Allergies Allergy (Verified 08/22/20 03:56) Home Medications: Ambulatory Orders Medication Instructions Recorded Atorvastatin Calcium 40 mg PO DAILY 08/13/20 Hydrocodone/Acetaminophen 1 - 2 ea PO Q6H PRN 08/13/20 [Hydrocodone-Acetamin 5-325 mg] Omeprazole [Prilosec] 10 mg PO DAILY 08/13/20 Dexamethasone [Decadron] 6 mg PO DAILY #7 tab 08/15/20 Guaifenesin [Mucinex] 1,200 mg PO BID #14 tab.er.12h 08/15/20 Metoprolol(XL)Succ [Toprol Xl 50 mg PO DAILY #0 08/15/20 ([place])] cycloBENZAPRine HCl [Flexeril] 5 mg PO TID PRN PRN #30 tab 08/15/20 - Social History Tobacco Use: non-smoker Vital Signs Temp Pulse Resp BP Pulse Ox 98 F 88 18 99/57 L 90 08/25/20 13:31 08/25/20 13:31 08/25/20 13:31 08/25/20 13:31 08/25/20 13:31 Oxygen Flow Rate (L/min) 2 Oxygen Delivery Method Room Air Weight: 82.2 kg Body Mass Index (BMI) 28.6 Microbiology Past 72 Hours 08/24/20 10:45 Urine Culture - Preliminary Urine, Catheterized Gram positive organism 08/24/20 13:30 Respiratory Panel (PCR) - Final Mucosa - Nasopharyngeal Laboratory Tests Past 24 Hrs 08/24/20 08/25/20 08/25/20 06:35 05:28 05:28 WBC 5.6 RBC 3.86 L Hgb 10.9 L Hct 33.7 L MCV 87.3 MCH 28.2 MCHC 32.3 RDW Std Deviation 42.5 RDW Coeff of [place] 13.5 Plt Count 127 L MPV 10.0 Immature Gran % (Auto) 1.300 H Neut % (Auto) 84.2 H Lymph % (Auto) 11.2 L [place] % (Auto) 3.1 Eos % (Auto) 0.0 Baso % (Auto) 0.2 Absolute Neuts (auto) 4.7 Absolute Lymphs (auto) 0.62 L Nucleated RBC % 0 Sodium 136 133 L Potassium 3.8 3.4 L Chloride 105 102 Carbon Dioxide 23.0 23.0 Anion Gap 8 8 BUN 9 11 Creatinine 0.56 0.59 Estim Creat Clear Calc 48.72 48.72 Est GFR (MDRD) Af Amer 137 129 Est GFR (MDRD) Non-Af 113 106 BUN/Creatinine Ratio 16.1 18.6 Glucose 89 109 H Calcium 7.7 L 7.2 L Total Bilirubin 0.50 AST 58 H ALT 53 Alkaline Phosphatase 91 Total Protein 4.9 L Albumin 2.2 L Globulin 2.7 Albumin/Globulin Ratio 0.8 L - Other Studies Radiology: [] reviewed Other Studies: [] Route of nutrition/ use of supplements: [] Nutritional Intake: [] IV Site: [] [place] Catheter: [] - Physical Exam General: Alert, Cooperative, No apparent distress HEENT: Atraumatic, PERRLA, EOMI Neck: Supple, No Nodes Lungs: Diminished Cardiovascular: Regular rate, Regular Rhythm Abdomen: Soft, Non Tender, Non-Distended Extremities: No edema Skin: No rashes IV Site: Peripheral, without redness Musculoskeletal: No Tenderness to Palpation of Joints or Extremities Neurological: Cranial nerves II-XII grossly intact - Assessment/Plan Antibiotics: [] Assessment/Plan: [] Active and Suspected Problems (Last Reviewed 08/13/20 @ 03:[address] Favio Coffman MD) Confusion (Acute) Cerebellar stroke (Acute) Seizure (Acute) Syncope (Acute) fever with recent dx covid - sx started 08/11. Now with new cerebellar stroke. Denies urinary symptoms, UA without inflammation but Ucx with 100k GNR. Started on unasyn today. Based on symptoms, labs, and imaging, concerned for ongoing covid. Will start dex and remdesivir. Will follow, thank you, d/w Dr. Rios
--- NOTE | 2020-08-25 17:11 | CT_ITS ---
STUDY: CT ABDOMEN AND PELVIS WITH CONTRAST REASON FOR EXAM: Female, 75 years old. PREVIOUS COLONOSCOPY/? MASS/BILAT PNEUMONIA/HTN RADIATION DOSAGE (If Supplied By Facility): CTDIvol = ( 17.47 ) mGy, DLP = ( 1255.21 ) mGycm TECHNIQUE: Transaxial images were obtained from the dome of the diaphragm to the symphysis pubis with oral contrast. 100mL Isovue-300 was administered. Sagittal and coronal images were reconstructed. Individualized dose optimization techniques were used for this CT. COMPARISON: CT chest August 22, 2020. FINDINGS: There are worsening bilateral groundglass and airspace opacities of the lungs. There are small pleural effusions. The visualized portions of the heart are within normal limits. Normal liver. Normal gallbladder and extrahepatic biliary system. There is mild splenomegaly. Normal pancreas. Normal bilateral adrenal glands. Normal right kidney. Normal left kidney. Normal visualized stomach. Normal small intestine. There are multiple colonic diverticula consistent with diverticulosis. The appendix is visualized and appears normal. There is diffuse atherosclerotic calcification of the abdominal aorta, without a demonstrated aneurysm. Normal inferior vena cava. Normal retroperitoneum. Normal urinary bladder. There is atrophy of the uterus. There is trace free fluid in the pelvis. Normal abdominal wall. There is degenerative change of the spine. There is right hip replacement. There is degenerative change of the left hip. CT/Abdomen/Pelvis WITH Contrast IMPRESSION: Colonic diverticulosis. No obstruction. Splenomegaly. Worsening bilateral pneumonia. Electronically Signed: Deandre Jaimes MD at 20:46 EST , Service support ,
[2020-08-25] MEDS: dexAMETHasone 4 MG Tablet 6 MG PO (17:49)
[2020-08-25] MEDS: 0.9% Normal Saline 1,000 ML 50 ML IV (17:49)
[2020-08-26] VITALS (11 sets, daily range): BP systolic 101–160; BP diastolic 48–72; PULSE 71–98; RESP 16–20; TEMP 36.4–37.1; O2SAT 93–95; BMI 28.6
[2020-08-26 07:32] LABS: Absolute Lymphocyte Count 0.29 X10^3/uL (0.83-4.51); Absolute Neutrophil Count 4.6 X10^3/uL (2.0-7.7); Hematocrit 34.9 % (37-47); Hemoglobin 11.5 g/dL (12.0-15.0); Lymphocyte # 0.29 X10^3/ul (4.0); Lymphocyte % 5.6 % (19-41); Mean Corpuscular Hgb 28.8 pg (27.0-32.0); Mean Corpuscular Volume 87.5 fL (81-99); Mean Platelet Vol. 10.4 fl (6.2-12.0); Monocyte# 0.13 X10^3/uL; Monocyte% 2.5 % (0-10); NRBC Flagged by Analyzer 0 % (0-5); Neutrophil # 4.63 X10^3/uL (2.7-7.7); Neutrophil % 89.2 % (47-70); POSITIVE DIFFERENTIAL YES; Platelet Count 119 K/mm3 (150-450); RBC Distribution Width CV 13.6 % (11.6-14.6); RBC Distribution Width SD 43.7 fl (35.1-43.9); Red Blood Count 3.99 M/mm3 (4.2-5.4); White Blood Count 5.2 K/mm3 (4.4-11.0)
[2020-08-26 07:36] LABS: Differential Indicated SCAN CRITERIA MET
[2020-08-26 07:59] LABS: Differential Comment SCANNED
[2020-08-26 08:03] LABS: ALB/GLOB Ratio 0.6 RATIO (0.9-2.4); AST(SGOT) 103 U/L (15-37); Alanine Aminotransfer ALT/SGPT 107 U/L (13-56); Albumin, Serum 2.1 g/dL (3.2-5.0); Alkaline Phosphatase 150 U/L (45-117); Anion Gap 5 (5-15); BUN 11 mg/dL (7-18); BUN/Creat Ratio 20.9 RATIO (10-20); Chloride 108 mmol/L (98-107); Creatinine, Serum 0.53 mg/dL (0.55-1.02); EST Glomerular Filtration Rate 121 mL/min (>60); Est Glom Filt Rate - Afr Amer 146 mL/min (>60); Estimated Creatinine Clearance 48.72 ml/min; Ferritin 4167 ng/mL (8-252); Globulin 3.7 g/dL (2.2-4.2); Glucose 126 mg/dL (74-106); Potassium 4.1 mmol/L (3.5-5.1); Protein, Total 5.8 g/dL (6.4-8.2); Sodium Level 137 mmol/L (136-145)
[2020-08-26 08:23] LABS: D-Dimer Quantitative (DVT/PE) 1.21 FEU/ug/m (0.27-0.49)
[2020-08-26 08:44] LABS: Procalcitonin 0.26 ng/mL (0.00-0.09)
[2020-08-26] MEDS: Metoprolol(XL)Succ 50 MG Tablet PO (08:53)
[2020-08-26] MEDS: dexAMETHasone 4 MG Tablet 6 MG PO (08:53)
[2020-08-26] MEDS: Pantoprazole Sodium 20 MG Tablet PO ×2 (08:53→08:54)
[2020-08-26] MEDS: Aspirin E.C. 81 MG Tablet PO (08:54)
[2020-08-26] MEDS: Atorvastatin Calcium 40 MG Tablet PO (08:54)
[2020-08-26] MEDS: Enoxaparin 40 MG/0.4 ML Syringe SC ×2 (08:54→21:57)
[2020-08-26] MEDS: Clopidogrel Bisulfate 75 MG Tablet PO (08:55)
[2020-08-26] MEDS: Acetaminophen 325 MG Tablet 650 MG PO ×2 (08:58→21:55)
--- NOTE | 2020-08-26 10:36 | CASEMGMT ---
Social Work Note SW placed a call to pt to check in with pt today. Pt again states she is just taking things a day at a time. Pt states again her is supportive and states that the rest of her family and friends are also supportive and has been supporting her . SW spoke with pt about how it is important to focus on herself getting better and how beneficial it is to have her family/friends help with her while she is at [facility]. SW spoke with pt about coping skills if her fatigued continues and activities to do. Pt states she has been unable to really do anything at home since she has been so fatigued. Pt states she has just been sleeping a lot lately. Pt states her fatigued is not as bad as it has been. Pt states before she got COVID, she liked to cook and it has been tough with the holidays not being able to cook. SW provided support for pt. Pt denied additional needs or concerns at this time. Hilda Modi INTAKE COUNSELOR, PROFESSIONAL SECURITY OFFICER
--- NOTE | 2020-08-26 13:05 | PN.ID_ITS ---
Patient Problems: Active and Suspected Problems (Last Reviewed 08/13/20 @ 03:[address] Favio Coffman MD) Confusion (Acute) Cerebellar stroke (Acute) Seizure (Acute) Syncope (Acute) Subjective: Feeling much better, no fever in past 24h. - Physical Exam Vitals/I&O's: Vital Signs Temp Pulse Resp BP Pulse Ox 98.0 F 83 18 111/63 94 08/26/20 09:00 08/26/20 09:00 08/26/20 09:00 08/26/20 09:00 08/26/20 09:00 Oxygen Flow Rate (L/min) 2 Oxygen Delivery Method Room Air Weight: 83.064 kg Body Mass Index (BMI) 28.6 Intake and Output for Last 24 Hours 08/24/20 08/25/20 08/26/20 23:59 23:59 23:59 Intake Total 1680 / 1680 1276 / 1576 1757 / 1757 Output Total 750 / 750 800 / 800 275 / 275 Balance 930 / 930 476 / 776 1482 / 1482 General: Alert, Cooperative, No apparent distress Lungs: Clear to auscultation, Normal air movement Cardiovascular: Regular rate, Regular Rhythm Abdomen: Soft, Non Tender, Non-Distended Skin: No rashes Microbiology Past 72 Hours 08/24/20 10:10 Blood Culture (Wb) - Right Hand Blood Culture - Preliminary No growth in 48 hours. 08/24/20 10:20 Blood Culture (Wb) - Anticubital Left Blood Culture - Preliminary No growth in 48 hours. 08/24/20 10:45 Urine, Catheterized Urine Culture - Preliminary GPC Poss Enterococcus sp Staphylococcus species 08/24/20 13:30 Mucosa - Nasopharyngeal Respiratory Panel (PCR) - Final Laboratory Results 08/26/20 06:45: WBC 5.2, RBC 3.99 L, Hgb 11.5 L, Hct 34.9 L, MCV 87.5, MCH 28.8, MCHC 33.0, RDW Std Deviation 43.7, RDW Coeff of Lynn 13.6, Plt Count 119 L, MPV 10.4, Immature Gran % (Auto) 2.700 H, Neut % (Auto) 89.2 H, Lymph % (Auto) 5.6 L , Thomas % (Auto) 2.5, Eos % (Auto) 0.0, Baso % (Auto) 0.0, Absolute Neuts (auto) 4.6, Absolute Lymphs (auto) 0.29 L, Nucleated RBC % 0, Differential Comment SCANNED 08/26/20 06:45: Sodium 137, Potassium 4.1, Chloride 108 H, Carbon Dioxide 24.0, Anion Gap 5, BUN 11, Creatinine 0.53 L, Estim Creat Clear Calc 48.72, Est GFR (MDRD) Af Amer 146, Est GFR (MDRD) Non-Af 121, BUN/Creatinine Ratio 20.9 H, Glucose 126 H, Calcium 8.0 L, Ferritin 4167 H, Total Bilirubin 0.30, AST 103 H, ALT 107 H, Alkaline Phosphatase 150 H, Troponin I < 0.015, C-React Prot Ext Range 174.00 H, Total Protein 5.8 L, Albumin 2.1 L, Globulin 3.7, Albumin/Globulin Ratio 0.6 L 08/26/20 06:45: D-Dimer Quant (PE/DVT) 1.21 H* 08/26/20 06:45: Procalcitonin 0.26 H Current Medications Acetaminophen (Acetaminophen 325 Mg Tablet) 650 mg PO Q4H PRN PRN PRN Reason: Pain Score 1-10/Temp > 100.7 F Last Admin: 08/26/20 08:58 Dose: 650 mg Documented by: Aspirin (Aspirin E.C. 81 Mg Tablet) 81 mg PO DAILY [facility] Last Admin: 08/26/20 08:54 Dose: 81 mg Documented by: Atorvastatin Calcium (Atorvastatin Calcium 40 Mg Tablet) 40 mg PO DAILY [facility] Last Admin: 08/26/20 08:54 Dose: 40 mg Documented by: Clopidogrel Bisulfate (Clopidogrel Bisulfate 75 Mg Tablet) 75 mg PO DAILY [facility] Last Admin: 08/26/20 08:55 Dose: 75 mg Documented by: Dexamethasone (Dexamethasone 4 Mg Tablet) 6 mg PO DAILY [facility] Stop: 09/03/20 10:01 Last Admin: 08/26/20 08:53 Dose: 6 mg Documented by: Enoxaparin Sodium (Enoxaparin 40 Mg/0.4 Ml Syringe) 40 mg SC BID [facility] Last Admin: 08/26/20 10:12 Dose: Not Given Documented by: Hydralazine HCl (Hydralazine 20 Mg/Ml Vial) 5 mg IV Q30M PRN PRN Reason: to maintain BP goals Levetiracetam 500 mg/ Sodium (Chloride) 105 mls @ 400 mls/hr IV Q12 [facility] Last Infusion: 08/26/20 10:51 Dose: Infused Documented by: Ampicillin Sodium/Sulbactam (Sodium 3 gm/ Sodium Chloride) 112 mls @ 150 mls/hr IV Q6 [facility] Last Admin: 08/26/20 12:50 Dose: 150 mls/hr Documented by: Remdesivir 100 mg/ Sodium (Chloride) 250 mls @ 125 mls/hr IV DAILY [facility]; Protocol Stop: 08/29/20 11:59 Last Admin: 08/26/20 10:33 Dose: 125 mls/hr Documented by: Sodium Chloride () 1,000 mls @ 50 mls/hr IV .Q20H [facility] Last Infusion: 08/26/20 06:59 Dose: 50 mls/hr Documented by: Ibuprofen (Ibuprofen 600 Mg Tablet) 600 mg PO Q8H PRN PRN PRN Reason: fever, pain 1-10 Last Admin: 08/25/20 17:06 Dose: 600 mg Documented by: Labetalol HCl (Labetalol (Prefilled) 20 Mg/4 Ml) 10 - 20 mg IV Q10M PRN PRN PRN Reason: to Maintain BP Goals Metoprolol Succinate (Metoprolol(Xl)Succ 50 Mg Tablet) 50 mg PO DAILY [facility] Last Admin: 08/26/20 08:53 Dose: 50 mg Documented by: Ondansetron HCl (Ondansetron 4 Mg/2 Ml Vial) 4 mg IV Q8H PRN PRN PRN Reason: NAUSEA/VOMITING Pantoprazole Sodium (Pantoprazole Sodium 20 Mg Tablet) 20 mg PO DAILY [facility] Last Admin: 08/26/20 08:54 Dose: 20 mg Documented by: Potassium Chloride (Potassium Chloride 20 Meq Tablet) 40 meq PO BIDCM [facility] Stop: 08/27/20 17:01 Last Admin: 08/26/20 08:53 Dose: 40 meq Documented by: Senna/Docusate Sodium (Senna/Docusate Sodium 1 Tablet) 2 tablet PO BID PRN PRN PRN Reason: Constipation Last Admin: 08/24/20 10:54 Dose: 1 tablet Documented by: Sodium Chloride (0.9% Saline Lock 10 Ml Syringe) 10 - 40 ml IV UD PRN PRN Reason: SALINE FLUSH Last Admin: 08/23/20 03:23 Dose: 20 ml Documented by: Medical Necessity - Tobacco Use Smoking Status: Never smoker Route of nutrition/ use of supplements: [] Nutritional Intake: [] IV Site: [] Lake Catheter: [] - Assessment/Plan Antibiotics: [] Assessment/Plan: [] Active and Suspected Problems (Last Reviewed 08/13/20 @ 03:[address] Favio Coffman MD) Confusion (Acute) Cerebellar stroke (Acute) Seizure (Acute) Syncope (Acute) fever with recent dx covid - sx started 08/11. Now with new cerebellar stroke. Denies urinary symptoms, UA without inflammation but Ucx with 100k enterococcus like, some staph. Started on unasyn 08/25. Based on symptoms, labs, and imaging, concerned for ongoing covid. 08/25 started dex and remdesivir. Feeling much better today, no fever in almost 36 hours. Will follow, d/w Dr. Rios
--- NOTE | 2020-08-26 14:43 | CHAPLAIN ---
Type of Pastoral Visit ___ Initial Visit ___ Follow-up Visit ___ On-call Visit ___ General Patient Visit ___ Spiritual Assessment ___ Family Conference ___ Bereavement ___ Rapid Response ___ Code Blue _x_ Other (describe below) Pastoral Care Referral From ___ Patient ___ Family ___ Nurse ___ Physician ___ Meat Stock Clerk ___ Roll Form Operator _x__ Other (describe below) Sacrament/Intervention ___ Active listening ___ Anointing ___ Congregational ___ Bereavement ___ Communion ___ Soha exploration ___ ___ Life review ___ Prayer ___ Reconciliation ___ Sacrament of Sick _x__ Supportive presence ___ Wedding ___ Other (describe below) Pastoral Comments phone call made into room this is in isolation; pt welcoming and expresses thanks for the support; pt states that she is coping with admission because everyone here is so wonderful; pt says just say some prayers for me
--- NOTE | 2020-08-26 14:44 | CASEMGMT ---
RN CM Note: Green sheet on front of chart for home oxygen if needed. PT/OT to see patient today-pending. IF SNF needed on dc, will re-evaluate on Sunday. Ottoniel IRVINGN RN ACM
--- NOTE | 2020-08-26 15:39 | PN_ITS ---
Patient Problems: Active and Suspected Problems (Last Reviewed 08/13/20 @ 03:[address] Favio Coffman MD) Confusion (Acute) Cerebellar stroke (Acute) Seizure (Acute) Syncope (Acute) Reason for Visit: Follow-up for COVID-19, pneumonia and fever. Objective: Patient did not had any fever in the last 36 hours. Denies any chest pain, shortness of breath or cough. No abdominal pain. Yesterday discussion with patient's aunt, Dr. Amaro and she informed me that patient had recently colonoscopy and there was concern of ulcerative colitis or Crohn's disease. With fever, CT abdomen and pelvis with oral and IV contrast was ordered but did not show any acute intra abdominal abnormality. Physical exam General: Alert, Oriented x3, Cooperative HEENT: Atraumatic, PERRLA, EOMI, Normocephalic Oral: No Gingival or Mucosal Lesions/ Ulcerations Neck: Supple, No JVD, Negative Carotid Bruits Lungs: Air entry diminished in bilateral lung bases. No crepitation/rhonchi. No hypoxia Cardiovascular: Regular rate, Regular Rhythm, Normal S1, Normal S2, No murmurs Abdomen: Bowel Sounds Present, Soft, Non Tender, Non-Distended. No palpable mass. : No renal angle tenderness. No suprapubic tenderness. Extremities: No edema, Capillary Refill Less than 3 Seconds Skin: No rashes, No breakdown Musculoskeletal: No Tenderness to Palpation of Joints or Extremities Neurological: Cranial nerves II-XII grossly intact, Deep Tendon Reflexes 2+/4 and Symmetrical, Neuro grossly intact Psych/Mental Status: Normal Affect, Appropriate. Vitals/I&O's: Vital Signs Temp Pulse Resp BP Pulse Ox 97.8 F 75 16 136/72 H 95 08/26/20 15:10 08/26/20 15:10 08/26/20 15:10 08/26/20 15:10 08/26/20 15:10 Oxygen Flow Rate (L/min) 95 Oxygen Delivery Method Room Air Weight: 183 lb 2 oz Body Mass Index (BMI) 28.6 Intake and Output for Last 24 Hours 08/24/20 08/25/20 08/26/20 23:59 23:59 23:59 Intake Total 1680 / 1680 1276 / 1576 2294.83 / 2294.83 Output Total 750 / 750 800 / 800 275 / 275 Balance 930 / 930 476 / 776 83 / 2018.83 Microbiology Past 72 Hours 08/24/20 10:10 Blood Culture (Wb) - Right Hand Blood Culture - Preliminary No growth in 48 hours. 08/24/20 10:20 Blood Culture (Wb) - Anticubital Left Blood Culture - Preliminary No growth in 48 hours. 08/24/20 10:45 Urine, Catheterized Urine Culture - Preliminary GPC Poss Enterococcus sp Staphylococcus species 08/24/20 13:30 Mucosa - Nasopharyngeal Respiratory Panel (PCR) - Final Laboratory Results 08/26/20 06:45: WBC 5.2, RBC 3.99 L, Hgb 11.5 L, Hct 34.9 L, MCV 87.5, MCH 28.8, MCHC 33.0, RDW Std Deviation 43.7, RDW Coeff of Lynn 13.6, Plt Count 119 L, MPV 10.4, Immature Gran % (Auto) 2.700 H, Neut % (Auto) 89.2 H, Lymph % (Auto) 5.6 L , [facility] % (Auto) 2.5, Eos % (Auto) 0.0, Baso % (Auto) 0.0, Absolute Neuts (auto) 4.6, Absolute Lymphs (auto) 0.29 L, Nucleated RBC % 0, Differential Comment SCANNED 08/26/20 06:45: Sodium 137, Potassium 4.1, Chloride 108 H, Carbon Dioxide 24.0, Anion Gap 5, BUN 11, Creatinine 0.53 L, Estim Creat Clear Calc 48.72, Est GFR (MDRD) Af Amer 146, Est GFR (MDRD) Non-Af 121, BUN/Creatinine Ratio 20.9 H, Glucose 126 H, Calcium 8.0 L, Ferritin 4167 H, Total Bilirubin 0.30, AST 103 H, ALT 107 H, Alkaline Phosphatase 150 H, Troponin I < 0.015, C-React Prot Ext Range 174.00 H, Total Protein 5.8 L, Albumin 2.1 L, Globulin 3.7, Albumin/Globulin Ratio 0.6 L 08/26/20 06:45: D-Dimer Quant (PE/DVT) 1.21 H* 08/26/20 06:45: Procalcitonin 0.26 H Current Medications Acetaminophen (Acetaminophen 325 Mg Tablet) 650 mg PO Q4H PRN PRN PRN Reason: Pain Score 1-10/Temp > 100.7 F Last Admin: 08/26/20 08:58 Dose: 650 mg Documented by: Aspirin (Aspirin E.C. 81 Mg Tablet) 81 mg PO DAILY [facility] Last Admin: 08/26/20 08:54 Dose: 81 mg Documented by: Atorvastatin Calcium (Atorvastatin Calcium 40 Mg Tablet) 40 mg PO DAILY [facility] Last Admin: 08/26/20 08:54 Dose: 40 mg Documented by: Clopidogrel Bisulfate (Clopidogrel Bisulfate 75 Mg Tablet) 75 mg PO DAILY [facility] Last Admin: 08/26/20 08:55 Dose: 75 mg Documented by: Dexamethasone (Dexamethasone 4 Mg Tablet) 6 mg PO DAILY [facility] Stop: 09/03/20 10:01 Last Admin: 08/26/20 08:53 Dose: 6 mg Documented by: Enoxaparin Sodium (Enoxaparin 40 Mg/0.4 Ml Syringe) 40 mg SC BID [facility] Last Admin: 08/26/20 10:12 Dose: Not Given Documented by: Hydralazine HCl (Hydralazine 20 Mg/Ml Vial) 5 mg IV Q30M PRN PRN Reason: to maintain BP goals Levetiracetam 500 mg/ Sodium (Chloride) 105 mls @ 400 mls/hr IV Q12 [facility] Last Infusion: 08/26/20 10:51 Dose: Infused Documented by: Ampicillin Sodium/Sulbactam (Sodium 3 gm/ Sodium Chloride) 112 mls @ 150 mls/hr IV Q6 [facility] Last Infusion: 08/26/20 14:09 Dose: Infused Documented by: Remdesivir 100 mg/ Sodium (Chloride) 250 mls @ 125 mls/hr IV DAILY [facility]; Protocol Stop: 08/29/20 11:59 Last Infusion: 08/26/20 14:09 Dose: Infused Documented by: Sodium Chloride () 1,000 mls @ 50 mls/hr IV .Q20H [facility] Last Infusion: 08/26/20 14:10 Dose: 50 mls/hr Documented by: Ibuprofen (Ibuprofen 600 Mg Tablet) 600 mg PO Q8H PRN PRN PRN Reason: fever, pain 1-10 Last Admin: 08/25/20 17:06 Dose: 600 mg Documented by: Labetalol HCl (Labetalol (Prefilled) 20 Mg/4 Ml) 10 - 20 mg IV Q10M PRN PRN PRN Reason: to Maintain BP Goals Metoprolol Succinate (Metoprolol(Xl)Succ 50 Mg Tablet) 50 mg PO DAILY [facility] Last Admin: 08/26/20 08:53 Dose: 50 mg Documented by: Ondansetron HCl (Ondansetron 4 Mg/2 Ml Vial) 4 mg IV Q8H PRN PRN PRN Reason: NAUSEA/VOMITING Pantoprazole Sodium (Pantoprazole Sodium 20 Mg Tablet) 20 mg PO DAILY [facility] Last Admin: 08/26/20 08:54 Dose: 20 mg Documented by: Potassium Chloride (Potassium Chloride 20 Meq Tablet) 40 meq PO BIDCM [facility] Stop: 08/27/20 17:01 Last Admin: 08/26/20 08:53 Dose: 40 meq Documented by: Senna/Docusate Sodium (Senna/Docusate Sodium 1 Tablet) 2 tablet PO BID PRN PRN PRN Reason: Constipation Last Admin: 08/24/20 10:54 Dose: 1 tablet Documented by: Sodium Chloride (0.9% Saline Lock 10 Ml Syringe) 10 - 40 ml IV UD PRN PRN Reason: SALINE FLUSH Last Admin: 08/23/20 03:23 Dose: 20 ml Documented by: STROKE Vital Signs/Narrative: Vital Signs Temp Pulse Resp BP Pulse Ox 08/26/20 15:10 97.8 F 75 16 136/72 H 95 08/26/20 15:05 89 Medical Necessity - Tobacco Use Smoking Status: Never smoker Assessment/Plan All Active Problems (Last Reviewed 08/13/20 @ 03:[address] Favio Coffman MD) Confusion (Acute) Cerebellar stroke (Acute) Seizure (Acute) Syncope (Acute) This is a 75-year-old female is admitted for dizziness, lightheadedness and generalized tonic-clonic seizure witnessed by the admitting hospitalist in the ER while sitting on the commode. She had postictal confusion. She had also fallen couple times at home after recent discharge. She also had fall and a laceration in the right frontal scalp which was sutured in ED. Patient was earlier admitted between 08/13 to 08/15/2024 syncope after 2 doses of [place]. Orthostatic vital signs were negative for postural hypotension or tachycardia. She had 4 days of remdesivir and completed Decadron. She also had a strep group B colonization for which she received 2 doses of ceftriaxone 1 g daily. #1 Syncopal episode/new onset generalized tonic-clonic seizure: Patient is admitted in PCU status. She denies any previous history of seizure.CT scan brain showed no acute findings. EKG normal sinus rhythm at 99 bpm, QTC 420 ms. Previous EKG on 08/13 was also sinus rhythm. Troponin negative. Patient had MRI brain which showed 7 mm small acute left cerebellar infarct. On the standar d stroke protocol. CT angiogram of head and neck and MRI brain with contrast was done as per [facility] neurology recommendation. Reports pending. Patient on aspirin, Plavix and high intensity statin. EEG reported no epileptiform discharges or seizure patterns or lateralizing signs. Patient is on Keppra 500 mg twice daily after loading dose 1 g on 08/22. PT OT and speech evaluation. As per nursing staff, patient said, he had cluster headache at home but does not remember the name of medication. [facility] was also consulted as per neurology recommendation looking for embolic stroke. Dr. Acevedo consult reviewed and states paroxysmal A. fib but patient denies history of A. fib and on air sampling and monitoring and EKG shows sinus rhythm. On Toprol-XL 50 mg daily. 2D echo was ordered. Fasting profile shows LDL 38, triglyceride 159. A1c 6.2 suggestive of prediabetes 08/25: 2D echo was done The estimated ejection fraction is 70 %.Bubble contrast study negative for right to left interatrial shunt. No evidence of intracardiac clot. #2 recent bilateral COVID-19 pneumonia: She was discharged from the hospital on August 15, 2020: Patient completed the course of Decadron and she had remd esivir while in the hospital during previous admission. Denies shortness of breath, cough or sputum production. Time fever today. CTA chest reported no PE or arterial dissection. Ill-defined subpleural groundglass opacity more prominent in the lung bases suggestive of atypical pneumonia COVID-19 pneumonia. 08/24: Intermittently patient having intermittent fever, T-max 103.0 Fahrenheit. Patient does not have any focal symptoms. Denies dysuria or change in urinary tract symptoms. Blood cultures x2, UA with urine culture ordered. Discussed with ID. May be remnant symptoms of Covid 19. 08/25: Patient continued to have fever discussed with the ID. Blood cultures x2 are pending. Preliminary urine culture shows more than 100,000 gram-positive organism. Empirically started on IV Unasyn. 08/26: Furthermore CT abdomen and pelvis with oral and IV contrast was done and no acute intra-abdominal abnormality found. Patient had elevated ferritin, D-dimer 1.21, ALT and AST, CRP and procalcitonin. Patient was seen by ID and started on remdesivir and Decadron yesterday. UA shows 3+ bacteria. Urine culture preliminary Enterococcus more than 100,000 colonies, staph species 50,000-80,000 colonies. #3 hyponatremia/hypokalemia: Unclear etiology. Still has hyponatremia and hypokalemia: Magnesium 1.8. Phosphorus 3.2. On IV fluid. Potassium getting replaced. 08/25: Sodium and potassium are low. Getting replaced. 08/26: Electrolytes are in normal range. #4 closed head injury/right frontal scalp laceration: Laceration sutured, CT scan brain showed no acute findings. #5 hypertension: Blood pressure slight elevated, continue metoprolol, blood pressure as per stroke protocol. 08/25, blood pressure is normal #6 hyperlipidemia: Continue statins. #7 GERD: Continue PPI. #8 DVT prophylaxis: Subcu Lovenox. Total time of the visit including total time spent in counseling or coordination of care, (more than 50% of the total time, spent in obtaining medical information from nurses and other ancillary care providers,explaining to the patient about labs, imaging, diagnosis and management), patient with consultants, review of labs and imaging is 30 minutes. I talked to the patient's and Dr. Greene and give the clinical update including labs, imaging and vitals. Inpatient E&M: 62626 Subs Hosp L2
--- NOTE | 2020-08-26 15:49 | CASEMGMT ---
Social Work Note SW did provide EQUIPMENT ENGINEERING TECHNICIAN with counseling resource list to provide to pt as pt did score moderate on PHQ-9 depression scale. Hilda Modi PROTOTYPE ENGINEER, CONTINUOUS MINING MACHINE COAL MINER
[2020-08-26] MEDS: 0.9% Normal Saline 1,000 ML 50 ML IV (21:58)
[2020-08-26] MEDS: MELATONIN 10 MG TABLET 5 MG PO (22:12)
[2020-08-27] VITALS (8 sets, daily range): BP systolic 133–138; BP diastolic 55–83; PULSE 71–83; RESP 18; TEMP 36.6–36.9; O2SAT 92–94
[2020-08-27] MEDS: Ondansetron 4 MG/2 ML Vial IV (00:01)
[2020-08-27 09:33] LABS: Absolute Lymphocyte Count 0.51 X10^3/uL (0.83-4.51); Absolute Neutrophil Count 5.1 X10^3/uL (2.0-7.7); Basophil# 0.01 X10^3/uL; Basophil% 0.2 % (0-1); Hematocrit 31.4 % (37-47); Hemoglobin 10.3 g/dL (12.0-15.0); Lymphocyte # 0.51 X10^3/ul (4.0); Lymphocyte % 8.5 % (19-41); Mean Corp Hgb Conc 32.8 g/dL (32-36); Mean Corpuscular Hgb 28.9 pg (27.0-32.0); Mean Corpuscular Volume 88.2 fL (81-99); Mean Platelet Vol. 9.8 fl (6.2-12.0); Monocyte# 0.26 X10^3/uL; Monocyte% 4.3 % (0-10); NRBC Flagged by Analyzer 0 % (0-5); Neutrophil # 5.08 X10^3/uL (2.7-7.7); POSITIVE DIFFERENTIAL YES; Platelet Count 134 K/mm3 (150-450); RBC Distribution Width CV 14.1 % (11.6-14.6); RBC Distribution Width SD 45.7 fl (35.1-43.9); Red Blood Count 3.56 M/mm3 (4.2-5.4)
[2020-08-27 09:35] LABS: Differential Indicated SCAN CRITERIA MET
[2020-08-27] MEDS: Atorvastatin Calcium 40 MG Tablet PO (09:35)
[2020-08-27] MEDS: Enoxaparin 40 MG/0.4 ML Syringe SC (09:35)
[2020-08-27] MEDS: Clopidogrel Bisulfate 75 MG Tablet PO (09:35)
[2020-08-27] MEDS: dexAMETHasone 4 MG Tablet 6 MG PO (09:35)
[2020-08-27] MEDS: Aspirin E.C. 81 MG Tablet PO (09:35)
[2020-08-27] MEDS: 0.9% Saline Lock 10 ML Syringe IV (09:36)
[2020-08-27] MEDS: Pantoprazole Sodium 40 MG Tablet PO (09:38)
[2020-08-27] MEDS: Mag Hydrox/Al Hydrox/Simeth 30 ML UDC PO (09:38)
[2020-08-27] MEDS: Metoprolol(XL)Succ 50 MG Tablet PO (09:39)
[2020-08-27 09:55] LABS: ALB/GLOB Ratio 0.6 RATIO (0.9-2.4); AST(SGOT) 129 U/L (15-37); Alanine Aminotransfer ALT/SGPT 148 U/L (13-56); Alkaline Phosphatase 144 U/L (45-117); Anion Gap 5 (5-15); BUN 16 mg/dL (7-18); BUN/Creat Ratio 26.3 RATIO (10-20); Calcium,Total 7.8 mg/dL (8.5-10.1); Chloride 111 mmol/L (98-107); Creatinine, Serum 0.61 mg/dL (0.55-1.02); EST Glomerular Filtration Rate 103 mL/min (>60); Est Glom Filt Rate - Afr Amer 124 mL/min (>60); Estimated Creatinine Clearance 48.72 ml/min; Globulin 3.6 g/dL (2.2-4.2); Glucose 135 mg/dL (74-106); Potassium 4.2 mmol/L (3.5-5.1); Protein, Total 5.6 g/dL (6.4-8.2); Sodium Level 139 mmol/L (136-145)
[2020-08-27 10:05] LABS: Hypochromasia RARE; Platelet Estimate SLT DEC (ADEQ)
--- NOTE | 2020-08-27 10:07 | NURSING ---
Toileted and now sitting in chair. This nurse made pt use her I.S at this time and encouraged pt to use q1hr while awake.
--- NOTE | 2020-08-27 10:59 | PCM.DC ---
- Discharge Diagnoses Current Active Problems: Current Active and Chronic Problems (Last Reviewed 08/13/20 @ 03:[address] Favio Coffman MD) Confusion (Acute) Cerebellar stroke (Acute) Seizure (Acute) GERD (gastroesophageal reflux disease) (Chronic) Hyperlipidemia (Chronic) Hypertension (Chronic) Syncope (Acute) COVID-19 (Chronic) You will use the following diet at home:: Regular, Cardiac Your food should be the consistency of: Regular Discharge Activity: May Not Drive - For seizure until cleared by neurologist as per start law. Weight Bearing Status: Weight bearing as tolerated Call your doctor if you observe: Fever of 101 or Higher, Numbness or Tingling, Change in Color, Inability to urinate, Inability to have a bowel movement, Shortness of breath, Dizziness, Fainting spells, Swelling in the ankles, Chest pain, Prolonged hiccoughing, Increased palpitations (irregular heartbeat), Calf discomfort, Uncontrolled pain Allergies/Adverse Reactions: Allergies No Known Allergies Allergy (Verified 08/22/20 03:56) Medications to take at Discharge Hydrocodone/Acetaminophen [Hydrocodone-Acetamin 5-325 mg] 1 - 2 ea PO Q6H PRN 08/13/20 Metoprolol(XL)Succ [Toprol Xl (Beta Naz)] 50 mg PO DAILY #0 08/15/20 cycloBENZAPRine HCl [Flexeril] 5 mg PO TID PRN PRN #30 tab 08/15/20 Amox/Clavulanate Tablet [Augmentin Tablet] 875 mg PO Q12H #10 tab 08/27/20 Aspirin E.C. [Ecotrin] 81 mg PO DAILY #30 tab 08/27/20 Atorvastatin Calcium 40 mg PO QHS #30 tablet 08/27/20 Clopidogrel Bisulfate [Plavix] 75 mg PO DAILY #20 tab 08/27/20 Dexamethasone [Decadron] 6 mg PO DAILY 7 Days #11 tab 08/27/20 Guaifenesin [Mucinex] 1,200 mg PO BID #14 tab.er.12h 08/27/20 Levetiracetam [Keppra] 500 mg PO BID #60 tab 08/27/20 Pantoprazole Sodium [Protonix] 40 mg PO BID #60 tab 08/27/20 The following prescriptions were given: Atorvastatin Calcium 40 mg PO QHS #30 tablet Amox/Clavulanate Tablet [Augmentin Tablet] 875 mg PO Q12H #10 tab Transmission Status: Pending to [facility] Dexamethasone [Decadron] 6 mg PO DAILY 7 Days #11 tab Transmission Status: Pending to [facility] Aspirin E.C. [Ecotrin] 81 mg PO DAILY #30 tab Transmission Status: Pending to [facility] Levetiracetam [Keppra] 500 mg PO BID #60 tab Transmission Status: Pending to [facility] Guaifenesin [Mucinex] 1,200 mg PO BID #14 tab.er.12h Transmission Status: Pending to [facility]/pharmacy #[id number] Clopidogrel Bisulfate [Plavix] 75 mg PO DAILY #20 tab Transmission Status: Pending to [facility] Pantoprazole Sodium [Protonix] 40 mg PO BID #60 tab Transmission Status: Pending to [facility] Primary Care Physician: NOT,DEFINED [NON-STAFF] - Please follow up with your Primary Care Physician in: PCP in 2 weeks Test Results: Test results from this visit will be discussed in further detail at your follow-up appointment, if applicable. Please Follow Up With: Brock Joseph MD When: in 2 weeks Please Follow Up With: Yong Caro MD When: in 4-5 weeks for event monitor Please Follow Up With: Valentin Burton MD When: for recurrent UTI as needed
--- NOTE | 2020-08-27 13:21 | PCM.DC.SUM ---
Discharge Date and Diagnosis - Problem List Patient Problems: Active and Suspected Problems (Last Reviewed 08/13/20 @ 03:[address] Favio Coffman MD) Confusion (Acute) Cerebellar stroke (Acute) Seizure (Acute) Syncope (Acute) Date of Admission: 08/22/20 Date of Discharge: 08/27/20 - Primary Discharge Diagnosis Acute Problems: Active Problems (Last Reviewed 08/13/20 @ 03:[address] Favio Coffman MD) Confusion (Acute) Cerebellar stroke (Acute) Seizure (Acute) Syncope (Acute) - Secondary Discharge Diagnosis Chronic Problems: Chronic Problems (Last Reviewed 08/13/20 @ 03:[address] Favio Coffman MD) GERD (gastroesophageal reflux disease) (Chronic) Hyperlipidemia (Chronic) Hypertension (Chronic) COVID-19 (Chronic) Hospital Course and Treatment Summary of Care Provided: Shayna [] is a 75-year-old female is admitted for dizziness, lightheadedness and generalized tonic-clonic seizure witnessed by the admitting hospitalist in the ER while sitting on the commode. She had postictal confusion. She had also fallen couple times at home after recent discharge. She also had fall and a laceration in the right frontal scalp which was sutured in ED. Patient was earlier admitted between 08/13 to 08/15/2024 syncope after 2 doses of [place]. Orthostatic vital signs were negative for postural hypotension or tachycardia. She had 4 days of remdesivir and completed Decadron. She also had a strep group B colonization for which she received 2 doses of ceftriaxone 1 g daily. #1 Syncopal episode/new onset generalized tonic-clonic seizure: Patient is admitted in PCU status. She denies any previous history of seizure.CT scan brain showed no acute findings. EKG normal sinus rhythm at 99 bpm, QTC 420 ms. Previous EKG on 08/13 was also sinus rhythm. Troponin negative. Patient had MRI brain which showed 7 mm small acute left cerebellar infarct. Patient was on the standard stroke protocol. CT angiogram of head and neck and MRI brain with contrast was done as per [facility] neurology recommendation. Reports pending. Patient on aspirin, Plavix and high intensity statin. EEG reported no epileptiform discharges or seizure patterns or lateralizing signs. Patient is on Keppra 500 mg twice daily after loading dose 1 g on 08/22. PT OT and speech evaluation. Trauma Director was also consulted as per neurology recommendation looking for embolic stroke. Dr. Acevedo consult reviewed and states paroxysmal A. fib but patient denies history of A. fib and on opener and EKG shows sinus rhythm. On Toprol-XL 50 mg daily. Fasting profile shows LDL 38, triglyceride 159. A1c 6.2 suggestive of prediabetes. 2D echo reported as the estimated ejection fraction is 70 %.Bubble contrast study negative for right to left interatrial shunt. No evidence of intracardiac clot. Patient is discharged on aspirin and Plavix, DAPT for total of 3 weeks and then continue aspirin indefinitely. On high intensity atorvastatin. #2 recent bilateral COVID-19 pneumonia: She was discharged from the hospital on August 15, 2020: Patient completed the course of Decadron and she had remdesivir while in the hospital during previous admission. Denies shortness of breath, cough or sputum production. Time fever today. CTA chest reported no PE or arterial dissection. Ill-defined subpleural groundglass opacity more prominent in the lung bases suggestive of atypical pneumonia COVID-19 pneumonia. 08/24: Intermittently patient having intermittent fever, T-max 103.0 Fahrenheit. Patient does not have any focal symptoms. Denies dysuria or change in urinary tract symptoms. Furthermore CT abdomen and pelvis with oral and IV contrast was done and no acute intra-abdominal abnormality found. Patient had elevated ferritin, D-dimer 1.21, ALT and AST, CRP and procalcitonin. Patient was seen by ID and started on remdesivir and Decadron. Patient had urine culture positive of Enterococcus faecalis more than 100,000 colonies in pathology range, Staphylococcus lenses [id number] probably colonization. Patient is discharged on Augmentin for total of 7 days. Blood cultures x2 are negative. Patient discharged on Decadron to complete total of 10 days. Patient had 3 doses of IV remdesivir during this hospital stay. #3 hyponatremia/hypokalemia: Unclear etiology. Still has hyponatremia and hypokalemia: Magnesium 1.8. Phosphorus 3.2. Potassium replaced Electrolytes were corrected. Last BMP shows sodium 139, K4.2. #4 closed head injury/right frontal scalp laceration: Laceration sutured, CT scan brain showed no acute findings. #5 hypertension: Blood pressure slight elevated, continue metoprolol, blood pressure as per stroke protocol. 08/25, blood pressure is normal #6 hyperlipidemia: Continue statins. #7 GERD: Continue PPI. #8 DVT prophylaxis: Subcu Lovenox. Discharge medication reconciliation done. Discharge follow-up instructions completed. Discharge process discussed with the patient and all questions were answered to patient's satisfaction. Patient hospital course and discharge instruction and summary was discussed with patient's and Dr. Amaro in detail including medications. The antibiotic was discussed with ID. It was agreed that discharged on 3 anticoagulants aspirin, Plavix and Eliquis for DVT prophylaxis may cause severe anemia especially as her hemoglobin is trending down from 13.9-10.3 and she has mild gastritis symptoms. Therefore discharged on DAPT for total of 3 weeks and continue aspirin along with Protonix 40 mg twice daily. Total time spent, exact 35 minutes on discharge meds reconciliation, examination, coordination of care with nurses and ancillary staff, review of imaging and blood test and discussion with the patient on follow-up instructions Patient Problems: Active and Suspected Problems (Last Reviewed 08/13/20 @ 03:[address] Favio Coffman MD) Confusion (Acute) Cerebellar stroke (Acute) Seizure (Acute) Syncope (Acute) Objective: Patient complained of mild gastric irritation, heartburn and nausea. It got better with Mylanta and Protonix. No fever last 2 days. Hemodynamically stable. Pulse ox 94% on room air. Physical exam General: Alert, Oriented x3, Cooperative HEENT: Atraumatic, PERRLA, EOMI, Normocephalic Oral: No Gingival or Mucosal Lesions/ Ulcerations Neck: Supple, No JVD, Negative Carotid Bruits Lungs: Air entry equal in bilateral lung bases. No crepitation/rhonchi. No hypoxia Cardiovascular: Regular rate, Regular Rhythm, Normal S1, Normal S2, No murmurs Abdomen: Bowel Sounds Present, Soft, Non Tender, Non-Distended. No palpable mass. : No renal angle tenderness. No suprapubic tenderness. Extremities: No edema, Capillary Refill Less than 3 Seconds Skin: No rashes, No breakdown Musculoskeletal: No Tenderness to Palpation of Joints or Extremities Neurological: Cranial nerves II-XII grossly intact, Deep Tendon Reflexes 2+/4 and Symmetrical, Neuro grossly intact Psych/Mental Status: Normal Affect, Appropriate. - Physical Exam Vitals/I&O's: Vital Signs Temp Pulse Resp BP Pulse Ox 98.1 F 72 18 138/69 H 94 08/27/20 03:13 08/27/20 07:30 08/27/20 03:13 08/27/20 03:13 08/27/20 03:13 Oxygen Flow Rate (L/min) 95 Oxygen Delivery Method Room Air Weight: 184 lb 15.485 oz Body Mass Index (BMI) 28.6 Intake and Output for Last 24 Hours 08/25/20 08/26/20 08/27/20 23:59 23:59 23:59 Intake Total 1276 / 1576 3001.00 / 3001.00 483.17 / 483.17 Output Total 800 / 800 275 / 275 750 / 750 Balance 476 / 776 2726.00 / 2726.00 -266.83 / -266.83 Microbiology Past 72 Hours 08/24/20 10:45 Urine, Catheterized Urine Culture - Final Enterococcus faecalis Staphylococcus lentus 08/24/20 10:10 Blood Culture (Wb) - Right Hand Blood Culture - Preliminary No growth in 48 hours. 08/24/20 10:20 Blood Culture (Wb) - Anticubital Left Blood Culture - Preliminary No growth in 48 hours. 08/24/20 13:30 Mucosa - Nasopharyngeal Respiratory Panel (PCR) - Final Laboratory Results 08/26/20 06:45: Differential Comment SCANNED 08/26/20 06:45: Sodium 137, Potassium 4.1, Chloride 108 H, Carbon Dioxide 24.0, Anion Gap 5, BUN 11, Creatinine 0.53 L, Estim Creat Clear Calc 48.72, Est GFR (MDRD) Af Amer 146, Est GFR (MDRD) Non-Af 121, BUN/Creatinine Ratio 20.9 H, Glucose 126 H, Calcium 8.0 L, Ferritin 4167 H, Total Bilirubin 0.30, AST 103 H, ALT 107 H, Alkaline Phosphatase 150 H, Troponin I < 0.015, C-React Prot Ext Range 174.00 H, Total Protein 5.8 L, Albumin 2.1 L, Globulin 3.7, Albumin/Globulin Ratio 0.6 L 08/26/20 06:45: D-Dimer Quant (PE/DVT) 1.21 H* 08/26/20 06:45: Procalcitonin 0.26 H Current Medications Acetaminophen (Acetaminophen 325 Mg Tablet) 650 mg PO Q4H PRN PRN PRN Reason: Pain Score 1-10/Temp > 100.7 F Last Admin: 08/26/20 21:55 Dose: 650 mg Documented by: Aspirin (Aspirin E.C. 81 Mg Tablet) 81 mg PO DAILY [facility] Last Admin: 08/26/20 08:54 Dose: 81 mg Documented by: Atorvastatin Calcium (Atorvastatin Calcium 40 Mg Tablet) 40 mg PO DAILY [facility] Last Admin: 08/26/20 08:54 Dose: 40 mg Documented by: Clopidogrel Bisulfate (Clopidogrel Bisulfate 75 Mg Tablet) 75 mg PO DAILY [facility] Last Admin: 08/26/20 08:55 Dose: 75 mg Documented by: Dexamethasone (Dexamethasone 4 Mg Tablet) 6 mg PO DAILY [facility] Stop: 09/03/20 10:01 Last Admin: 08/26/20 08:53 Dose: 6 mg Documented by: Enoxaparin Sodium (Enoxaparin 40 Mg/0.4 Ml Syringe) 40 mg SC BID [facility] Last Admin: 08/26/20 21:57 Dose: 40 mg Documented by: Hydralazine HCl (Hydralazine 20 Mg/Ml Vial) 5 mg IV Q30M PRN PRN Reason: to maintain BP goals Levetiracetam 500 mg/ Sodium (Chloride) 105 mls @ 400 mls/hr IV Q12 [facility] Last Infusion: 08/26/20 22:11 Dose: Infused Documented by: Ampicillin Sodium/Sulbactam (Sodium 3 gm/ Sodium Chloride) 112 mls @ 150 mls/hr IV Q6 [facility] Last Infusion: 08/27/20 06:40 Dose: Infused Documented by: Remdesivir 100 mg/ Sodium (Chloride) 250 mls @ 125 mls/hr IV DAILY [facility]; Protocol Stop: 08/29/20 11:59 Last Infusion: 08/26/20 14:09 Dose: Infused Documented by: Sodium Chloride () 1,000 mls @ 50 mls/hr IV .Q20H [facility] Last Infusion: 08/27/20 06:40 Dose: 50 mls/hr Documented by: Ibuprofen (Ibuprofen 600 Mg Tablet) 600 mg PO Q8H PRN PRN PRN Reason: fever, pain 1-10 Last Admin: 08/25/20 17:06 Dose: 600 mg Documented by: Labetalol HCl (Labetalol (Prefilled) 20 Mg/4 Ml) 10 - 20 mg IV Q10M PRN PRN PRN Reason: to Maintain BP Goals Melatonin (Melatonin 10 Mg Tablet) 5 mg PO QHS [facility] Last Admin: 08/26/20 22:12 Dose: 5 mg Documented by: Metoprolol Succinate (Metoprolol(Xl)Succ 50 Mg Tablet) 50 mg PO DAILY [facility] Last Admin: 08/26/20 08:53 Dose: 50 mg Documented by: Ondansetron HCl (Ondansetron 4 Mg/2 Ml Vial) 4 mg IV Q8H PRN PRN PRN Reason: NAUSEA/VOMITING Last Admin: 08/27/20 00:01 Dose: 4 mg Documented by: Pantoprazole Sodium (Pantoprazole Sodium 20 Mg Tablet) 20 mg PO DAILY [facility] Last Admin: 08/26/20 08:54 Dose: 20 mg Documented by: Senna/Docusate Sodium (Senna/Docusate Sodium 1 Tablet) 2 tablet PO BID PRN PRN PRN Reason: Constipation Last Admin: 08/24/20 10:54 Dose: 1 tablet Documented by: Sodium Chloride (0.9% Saline Lock 10 Ml Syringe) 10 - 40 ml IV UD PRN PRN Reason: SALINE FLUSH Last Admin: 08/23/20 03:23 Dose: 20 ml Documented by: Home Medications: Medications to take at Discharge Hydrocodone/Acetaminophen [Hydrocodone-Acetamin 5-325 mg] 1 - 2 ea PO Q6H PRN 08/13/20 Metoprolol(XL)Succ [Toprol Xl (Beta Naz)] 50 mg PO DAILY #0 08/15/20 cycloBENZAPRine HCl [Flexeril] 5 mg PO TID PRN PRN #30 tab 08/15/20 Amox/Clavulanate Tablet [Augmentin Tablet] 875 mg PO Q12H #10 tab 08/27/20 Aspirin E.C. [Ecotrin] 81 mg PO DAILY #30 tab 08/27/20 Atorvastatin Calcium 40 mg PO QHS #30 tab 08/27/20 Clopidogrel Bisulfate [Plavix] 75 mg PO DAILY #20 tab 08/27/20 Dexamethasone [Decadron] 6 mg PO DAILY 7 Days #11 tab 08/27/20 Guaifenesin [Mucinex] 1,200 mg PO BID #14 tab.er.12h 08/27/20 Levetiracetam [Keppra] 500 mg PO BID #60 tab 08/27/20 Pantoprazole Sodium [Protonix] 40 mg PO BID #60 tab 08/27/20 Following Prescriptions Were Given to Patient: Atorvastatin Calcium 40 mg PO QHS #30 tab Amox/Clavulanate Tablet [Augmentin Tablet] 875 mg PO Q12H #10 tab [facility] Status: [facility] Dexamethasone [Decadron] 6 mg PO DAILY 7 Days #11 tab Transmission Status: Received by [facility] Aspirin E.C. [Ecotrin] 81 mg PO DAILY #30 tab Transmission Status: Received by [facility] Levetiracetam [Keppra] 500 mg PO BID #60 tab Transmission Status: Received by [facility] Guaifenesin [Mucinex] 1,200 mg PO BID #14 tab.er.12h Transmission Status: Received by [facility]/pharmacy #[id number] Clopidogrel Bisulfate [Plavix] 75 mg PO DAILY #20 tab Transmission Status: Received by [facility] Pantoprazole Sodium [Protonix] 40 mg PO BID #60 tab Transmission Status: Received by [facility] [place] [address] Other Amb Orders: 30 Day Event Recorder [employer] [[facility]] Time Frame: 08/30/20, Location: None Selected Primary Care Physician: NOT,DEFINED [NON-STAFF] - Medical Necessity - Tobacco Use Smoking Status: Never smoker Meaningful Use Info Meaningful Use Diagnoses (Choose all that apply): Ischemic CVA - CVA Therapy Assessed for PT,OT and/or ST?: Yes - Ischemic Stroke Antithrombotic order at d/c?: Yes Dx of Atrial fib/flutter?: No Anticoagulant at discharge?: Yes Statins at discharge?: Yes Primary Dx Acute Ischemic CVA?: Yes IV tPA ordered during stay?: No Reason IV t-PA not ordered: Medical Contraindication - NIH stroke scale 0. Patient no specific stroke symptoms Inpatient E&M: [id number] Disch Hosp
--- NOTE | 2020-08-27 13:33 | NURSING ---
ATTEMPTED TO CALL AND LEAVE MSG W/ISACC IN CARDIOVASCULAR TO VERIFY THAT ORDER FOR 30 DAY EVENT RECORDER WAS RECEIVED, DID NOT RECEIVE VM
--- NOTE | 2020-08-30 14:39 | CASEMGMT ---
SHI WILLIAM DC PHONE CALL DC DATE: 08/27/20 DC DISPOSITION: Home DC DIAGNOSIS: SARS COVID 2 Intro role of CM to patient and her . Patient states she is feeling better, and her is helping with the medications. They were concerned re: her BP of 162/70. She stated she left message with Dr. Joseph and Dr. Caro for calls back. No further questions and no concerns. No care improvement suggestions were given. Ottoniel IRVINGN RN ACM
== END 2020-08-27 16:30 | disposition home or self-care (01) | DRG 64 ==
LOC: ED 05:39 → ICU 06:59 → MS2 08-23 16:47
PROVIDERS: Family Medicine; Admitting Provider Hospitalist; Emergency Provider Emergency Medicine; PCP Family Medicine; Visit Provider Internal Medicine
DX: I63.9 Cerebral infarction, unspecified (principal); U07.1 COVID-19; J12.89 Other viral pneumonia; F05 Delirium due to known physiological condition; E87.1 Hypo-osmolality and hyponatremia; R56.9 Unspecified convulsions; K21.9 Gastro-esophageal reflux disease without esophagitis; E78.5 Hyperlipidemia, unspecified; I10 Essential (primary) hypertension; S01.01XA Laceration without foreign body of scalp, initial encounter; W19.XXXA Unspecified fall, initial encounter; I48.0 Paroxysmal atrial fibrillation; E87.6 Hypokalemia; Z96.641 Presence of right artificial hip joint; Z79.899 Other long term (current) drug therapy
CPT/HCPCS: 36415; 70450; 70496; 70498; 70551; 70552; 71045; 71275; 72125; 74177; 80048; 80053; 80061; 81001; 82728; 83036; 83735; 84100; 84132; 84145; 84484; 85025; 85379; 85610; 86140; 87040; 87077; 87086; 87088; 87186; 87633; 92507; 92526; 92610; 93005; 93308; 94667; 95819; 97110; 97116; 97162; 97166; 97530; 97535; 97802; 99251; 99285; A9575; J7030; J7040; J7050; J7120; Q9957; Q9967; A4216; G0463; J0295; J2405

== ENCOUNTER → 2020-11-02 08:19 | Outpatient (CLI) | payer MEDICARE, OTHER, SELFPAY ==
[2020-10-26 11:19] VITALS: BMI 28.3
[2020-11-02 09:26] LABS: Hematocrit 39.8 % (37-47); Hemoglobin 12.7 g/dL (12.0-15.0); Mean Corp Hgb Conc 31.9 g/dL (32-36); Mean Corpuscular Hgb 28.7 pg (27.0-32.0); Mean Corpuscular Volume 89.8 fL (81-99); Mean Platelet Vol. 9.5 fl (6.2-12.0); Platelet Count 213 K/mm3 (150-450); Red Blood Count 4.43 M/mm3 (4.2-5.4); White Blood Count 4.6 K/mm3 (4.4-11.0)
[2020-11-02 09:58] LABS: Vitamin B12 415 pg/mL (211-911)
[2020-11-02 10:11] LABS: ALB/GLOB Ratio 1.1 RATIO (0.9-2.4); AST(SGOT) 13 U/L (15-37); Alanine Aminotransfer ALT/SGPT 23 U/L (13-56); Albumin, Serum 3.7 g/dL (3.2-5.0); Alkaline Phosphatase 106 U/L (45-117); Anion Gap 6 (5-15); BUN 14 mg/dL (7-18); BUN/Creat Ratio 18.6 RATIO (10-20); Calcium,Total 8.7 mg/dL (8.5-10.1); Chloride 110 mmol/L (98-107); Creatinine, Serum 0.75 mg/dL (0.55-1.02); EST Glomerular Filtration Rate 80 mL/min (>60); Est Glom Filt Rate - Afr Amer 97 mL/min (>60); Globulin 3.3 g/dL (2.2-4.2); Glucose 98 mg/dL (74-106); Potassium 3.8 mmol/L (3.5-5.1); Sodium Level 142 mmol/L (136-145); Thyroid Stim Hormone (TSH) 1.65 uIU/mL (0.358-3.74)
[2020-11-03 16:09] LABS: Free Kappa Light Chains 25.6 mg/L (3.3-19.4); Free Lambda Light Chains 35.5 mg/L (5.7-26.3)
== END ==
PROVIDERS: PCP Family Medicine; Referring Provider Psychiatry & Neurology Neurology; Visit Provider Psychiatry & Neurology Neurology
DX: G62.9 Polyneuropathy, unspecified (principal); Z87.898 Personal history of other specified conditions; R41.0 Disorientation, unspecified
CPT/HCPCS: 36415; 80053; 82607; 82746; 83883; 84443; 85027

== ENCOUNTER → 2020-12-08 07:39 | Outpatient (CLI) | payer MEDICARE, OTHER, SELFPAY ==
[2020-12-08 07:39] VITALS: BMI 28.3
[2020-12-10 12:08] LABS: Albumin 3.8 g/dL (2.9-4.4); Alpha-1-Globulins 0.2 g/dL (0.0-0.4); Alpha-2-Globulins 0.8 g/dL (0.4-1.0); Immunoglobulin A 68 mg/dL (64-422); Immunoglobulin G 601 mg/dL (586-1602); Immunoglobulin M 638 mg/dL (26-217); PROEL- TOTAL PROTEIN 6.6 g/dL (6.0-8.5)
== END ==
PROVIDERS: PCP Family Medicine; Referring Provider Nurse Practitioner Family; Visit Provider Nurse Practitioner Family
DX: R56.9 Unspecified convulsions (principal); G62.9 Polyneuropathy, unspecified
CPT/HCPCS: 36415; 82140; 82784; 84165; 86334; 86335

== ENCOUNTER → 2020-12-16 08:54 | Outpatient (CLI) | payer MEDICARE, OTHER, SELFPAY ==
[2020-12-08 07:39] VITALS: BMI 28.3
[2020-12-20 12:05] LABS: KEPPRA (LEVETIRACETAM) 30.2 ug/mL (10.0-40.0)
== END ==
PROVIDERS: PCP Family Medicine; Referring Provider Nurse Practitioner Family; Visit Provider Nurse Practitioner Family
DX: R56.9 Unspecified convulsions (principal)
CPT/HCPCS: 36415; 80177

== ENCOUNTER 2020-12-30 07:35 | Emergency (ER) | payer MEDICARE, OTHER, SELFPAY ==
[2020-12-08 07:39] VITALS: BMI 28.3
[2020-12-30 07:36] VITALS: BP 133/92; PULSE 133; RESP 15; TEMP 37.1; O2SAT 94; BMI 29.0
--- NOTE | 2020-12-30 08:27 | CT_ITS ---
STUDY: CT BRAIN WITHOUT CONTRAST REASON FOR EXAM: Female, 75 years old. Cluster headaches. RADIATION DOSAGE (If Supplied By Facility): CTDIvol = ( 44.99 ) mGy, DLP = ( 796.11 ) mGycm TECHNIQUE: Transaxial CT imaging of the brain was performed without administration of intravenous contrast material. Individualized dose optimization techniques were used for this CT. COMPARISON: Comparison is made with prior study dated 08/22/2020 FINDINGS: Normal soft tissue structures. Normal calvarium. There is mild cerebral atrophy with widening of the extra-axial spaces and ventricular dilatation. There are areas of decreased attenuation within the white matter tracts of the supratentorial brain, consistent with microvascular disease changes. Normal basal ganglia and thalami. Normal brainstem. Normal cerebellum. There is no intracranial hemorrhage. There are no findings of an acute ischemic infarction. Normal visualized paranasal sinuses. CT/Brain/Head without Contrast IMPRESSION: Chronic involutional changes of the brain. Electronically Signed: Ta Reese MD at 9:32 EDT , Service support ,
[2020-12-30] MEDS: Ondansetron 4 MG/2 ML Vial IV (08:42)
[2020-12-30] MEDS: Morphine 4 MG/ML Syringe IV (08:42)
--- NOTE | 2020-12-30 09:21 | EDS_ITS ---
HPI History of Present Illness Chief Complaint: Headache Narrative Narrative: 75-year-old female presenting with headache. Patient states this started approximately one week ago and has been intermittent. She has history of cluster headaches which feels similar. She tried ibuprofen at home today with no relief. She states she received her second Covid vaccine yesterday and has worsening headache today. She denies recent trauma. Denies fever or neck pain. Denies numbness or weakness. Denies vision changes. Denies other complaints. Prior similar symptoms: Yes Recent Illness/Hospitalization: No [facility], [facility] Medical History (Updated 12/30/20 @ 14:[address] Raysa Sargent MD) Cerebellar stroke COVID-19 Essential hypertension GERD (gastroesophageal reflux disease) Hyperlipidemia Seizure Home Medications metoprolol succinate 50 mg PO DAILY #0 08/15/20 [Rx Last Taken 08/12/20] aspirin 81 mg PO DAILY #30 tab 08/27/20 [Rx Last Taken Unknown] atorvastatin 40 mg tablet 40 mg PO DAILY tab 09/24/20 [History Last Taken Unknown] pantoprazole 40 mg tablet,delayed release 40 mg PO DAILY 09/24/20 [History Last Taken Unknown] melatonin 5 mg capsule 5 mg PO QHS PRN cap 10/26/20 [History Last Taken Unknown] polyethylene glycol 3350 17 gram/dose oral powder 17 g PO DAILY PRN 10/26/20 [History Last Taken Unknown] psyllium husk 0.4 gram capsule 0.4 g PO DAILY PRN 10/26/20 [History Last Taken Unknown] cyclobenzaprine 10 mg tablet 5 mg PO TID PRN PRN tab 11/05/20 [History Last Taken Unknown] hydrocodone 5 mg-acetaminophen 325 mg tablet 1 tab PO QHS PRN 11/05/20 [History Last Taken Unknown] lisinopril 5 mg tablet 5 mg PO DAILY #30 tab 11/05/20 [Rx Last Taken Unknown] lisinopril 5 mg tablet 5 mg PO DAILY #90 tab 11/05/20 [Rx Last Taken Unknown] levetiracetam 500 mg tablet 500 mg PO BID #60 tab 12/07/20 [Rx Last Taken Unknown] hydrocodone-acetaminophen 1 tab PO Q6H PRN PRN 3 Days #10 tablet 12/30/20 [Rx Last Taken Unknown] Allergy/AdvReac Type Severity Reaction Status Date / Time No Known Allergies Allergy Verified 12/30/20 07:38 Family History Brother Alcoholism Asthma Myocardial infarction, Onset Age: 52 Seizures Skin cancer Sister CVA (cerebral vascular accident) Asthma Grandfather Asthma Father Myocardial infarction, Onset Age: 46 Had at age 46 & 62 Mother Myocardial infarction, Onset Age: 82 Surgical History History of cataract surgery History of eye surgery History of right hip replacement Social History (Updated 12/07/20 @ 15:44 by Giselle Lamar ORTHOPAEDIC DOCTOR, ORTHOPAEDIC DOCTOR-C) Smoking Status: Never smoker Tobacco: How many years used: 30 how long ago did patient quit smokin years ago second hand exposure: No alcohol intake: current alcohol intake frequency: holidays/special occasions only Alcohol type: wine substance use type: does not use ROS ROS ED Constitutional Constitutional ED: Denies fever(s) Eyes Eyes: Denies change in vision ENT ENT ED: Denies rhinorrhea or sore throat Cardiovascular Cardiovascular: Denies chest pain or palpitations Respiratory/Chest Respiratory/Chest: Denies cough or dyspnea Gastrointestinal Gastrointestinal: Denies abdominal pain, diarrhea, nausea or vomiting Genitourinary Genitourinary ED: Denies dysuria Musculoskeletal Musculoskeletal: Denies myalgias Integumentary Denies rash Neurologic Neurologic: Reports headache(s); Denies paresthesias or weakness EXAM Physical Exam Const Vital Signs: 12/30/20 07:36 12/30/20 08:44 12/30/20 10:42 Temperature 98.7 F Temperature Source Temporal Pulse Rate 133 H 84 Respiratory Rate 15 18 Blood Pressure 133/92 H 146/68 H Blood Pressure Mean 105 94 Pulse Ox 94 99 Oxygen Delivery Method Room Air Room Air Room Air 12/30/20 13:54 Temperature Temperature Source Pulse Rate 96 Respiratory Rate 20 H Blood Pressure 147/68 H Blood Pressure Mean 94 Pulse Ox 100 Oxygen Delivery Method Room Air Positive well nourished and well developed General Appearance ED: well developed HEENT Reports normocephalic and head/scalp atraumatic Eyes PERRL and EOMs intact bilaterally Neck supple Neck Narrative: No meningismus General: Negative for tenderness Chest Wall inspection of chest normal Resp normal respiratory effort and clear to auscultation bilaterally Cardio regular rate and regular rhythm GI non-tender and non-distended Palpation: soft; Negative for guarding or rebound tenderness present no CVA tenderness Extremity normal to inspection Neuro oriented x3 and CN's II-XII intact bilaterally Sensorium / Orientation: alert Motor Exam: strength 5/5 throughout Psych mental status grossly normal MDM MDM MDM Narrative Medical decision making narrative: Patient was given morphine, Zofran IV. Patient continues to have pain. Due to her recent Covid vaccine and this headache being worse than usual headaches, MRV was obtained and is unremarkable. Patient was given Dilaudid, Toradol IV with some improvement. She states she has been treated with [place] for headaches in the past. She is given prescription for short course of [place]. She is advised to follow up with her primary care physician. Advised return to ED for worsening complaints. Lab Data Attestation: I reviewed the patient's lab results. Labs: Laboratory Results - last 24 hr 12/30/20 12/30/20 08:20 08:20 WBC 4.9 RBC 4.39 Hgb 12.6 Hct 38.2 MCV 87.0 MCH 28.7 MCHC 33.0 RDW Std Deviation 38.9 RDW Coeff of Lynn 12.1 Plt Count 168 MPV 10.5 Immature Gran % (Auto) 0.200 Neut % (Auto) 83.8 H Lymph % (Auto) 9.0 L Banner % (Auto) 6.6 Eos % (Auto) 0.2 Baso % (Auto) 0.2 Absolute Neuts (auto) 4.1 Absolute Lymphs (auto) 0.44 L Nucleated RBC % 0 Differential Comment SCANNED Sodium 137 Potassium 3.7 Chloride 104 Carbon Dioxide 22.0 Anion Gap 11 BUN 18 Creatinine 0.95 Estim Creat Clear Calc 49.37 Est GFR (MDRD) Af Amer 74 Est GFR (MDRD) Non-Af 61 BUN/Creatinine Ratio 18.9 Glucose 121 H Calcium 8.9 Radiography Diagnostic Testing: Radiology Impression Brain CT 12/30/20 08:27 IMPRESSION: Chronic involutional changes of the brain. Electronically Signed: Ta Reese MD at 9:32 EDT , Service support , Brain MRI 12/30/20 10:40 IMPRESSION: Normal unenhanced MRV of the brain unchanged when compared to CTA head with contrast of 08/23/2020. Electronically Signed: Thanh Faulkner MD at 13:27 EDT , Service support , Head MRA 12/30/20 10:40 IMPRESSION: Normal MRA of the head and unchanged when compared to CTA head of 08/23/2020 Electronically Signed: Thanh Faulkner MD at 13:30 EDT , Service support , Discharge Plan Triage Chief Complaint: Headache ED Provider: Raysa Sargent Dx/Rx/DC Orders Clinical Impression: Headache Instructions: ED Headache, Cluster Prescriptions: New hydrocodone-acetaminophen [hydrocodone-acetaminophen] 1 TABLET tablet 1 tab PO Q6H PRN PRN (Reason: Pain) 3 Days Qty: 10 RF: 0 No Action pantoprazole 40 mg tablet,delayed release (DR/EC) 40 mg PO DAILY RF: 0 atorvastatin 40 mg tablet 40 mg PO DAILY RF: 0 psyllium husk [Metamucil] 0.4 gram capsule 0.4 g PO DAILY PRNRF: 0 polyethylene glycol 3350 [Miralax] 17 gram/dose powder 17 g PO DAILY PRNRF: 0 melatonin 5 mg capsule 5 mg PO QHS PRNRF: 0 hydrocodone-acetaminophen 5-325 mg tablet 1 tab PO QHS PRNRF: 0 cyclobenzaprine 10 mg tablet 5 mg PO TID PRN PRN (Reason: muscle spasm) RF: 0 lisinopril 5 mg tablet 5 mg PO DAILY Qty: 30 RF: 1 lisinopril 5 mg tablet 5 mg PO DAILY Qty: 90 RF: 3 levetiracetam 500 mg tablet 500 mg PO BID Qty: 60 RF: 2 metoprolol succinate 50 MG tablet 50 mg PO DAILY Qty: 0 RF: 0 aspirin 81 MG tablet 81 mg PO DAILY Qty: 30 RF: 1 Primary Care Provider: Marvin Malloy Referrals: Marvin Malloy MD [Primary Care Provider] -
--- NOTE | 2020-12-30 10:40 | MRI_ITS ---
STUDY: MRA OF THE HEAD WITHOUT CONTRAST REASON FOR EXAM: Female, 75 years old. Headache post Pfizer covid vaccine TECHNIQUE: 3-D [id number] (TOF) imaging was performed with MIPs. The study was performed unenhanced. COMPARISON: CTA head with contrast 08/23/2020. FINDINGS: Normal bilateral petrous carotid arteries. Normal right cavernous carotid artery with a normal supraclinoid bifurcation. Normal left cavernous carotid artery with a normal supraclinoid bifurcation. Normal right A1 segment of the anterior cerebral artery. Normal left A1 segment of the anterior cerebral artery. Normal intact anterior communicating artery (ACOM). Normal bilateral A2 segments of the anterior cerebral arteries. Normal right M1 and M2 segments of the middle cerebral arteries, with a normal M1 bifurcation. Normal left M1 and M2 segments of the middle cerebral arteries, with a normal M1 bifurcation. No visible right posterior communicating artery (PCOM). origin of the left [employer] off the left internal carotid artery rather than widely patent left posterior communicating artery (PCOM). 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 Normal bilateral vertebral arteries. The right vertebral artery is hypoplastic and terminates directly into the right PICA. Normal basilar artery with a normal basilar bifurcation. The visualized bilateral superior cerebellar (SCA) arteries are normal. Normal right P1 segment and normal bilateral P2 and visualized P3 segments of the posterior cerebral arteries. There is no demonstrated aneurysm of the north fork of [place]. There is no major vessel occlusion or hemodynamically significant stenosis. There is no demonstrated abnormality of the visualized brain. MRI/MRA Head ONLY without Contrast IMPRESSION: Normal MRA of the head and unchanged when compared to CTA head of 08/23/2020 Electronically Signed: Thanh Faulkner MD at 13:30 EDT , Service support ,
--- NOTE | 2020-12-30 10:40 | MRI_ITS ---
STUDY: EXAMINATION - MRV BRAIN WITHOUT CONTRAST REASON FOR EXAM: Female, 75 years old. Headache, post Pfizer covid vaccine TECHNIQUE: 3D [id number] (TOF) imaging was performed in a 1.5 lee ann MRI scanner. COMPARISON: MRI brain with contrast 08/23/2020. CTA head with contrast 08/23/2020. FINDINGS: Normal flow within the superior sagittal sinus. Normal flow within the superficial cortical veins. Normal flow within the paired internal cerebral veins, vein of Lucio and straight sinus. Normal flow within the bilateral transverse and sigmoid sinuses. The left transverse sinus is hypoplastic. Normal flow within the bilateral jugular bulbs. Hypoplastic left jugular bulb. MRI/MRV Head Without Contrast IMPRESSION: Normal unenhanced MRV of the brain unchanged when compared to CTA head with contrast of 08/23/2020. Electronically Signed: Thanh Faulkner MD at 13:27 EDT , Service support ,
[2020-12-30 10:42] VITALS: BP 146/68; PULSE 84; RESP 18; O2SAT 99
[2020-12-30] MEDS: Metoclopramide 10 MG/2 ML Vial 5 MG IV (10:48)
[2020-12-30] MEDS: DiphenhydrAMINE 50 MG/ML Syringe 25 MG IV (10:50)
[2020-12-30 11:15] LABS: Absolute Lymphocyte Count 0.44 X10^3/uL (0.83-4.51); Absolute Neutrophil Count 4.1 X10^3/uL (2.0-7.7); Basophil# 0.01 X10^3/uL; Basophil% 0.2 % (0-1); Eosinophil# 0.01 X10^3/uL; Eosinophils% 0.2 % (0-5); Hematocrit 38.2 % (37-47); Hemoglobin 12.6 g/dL (12.0-15.0); Lymphocyte # 0.44 X10^3/ul (0.83-4.51); Mean Corpuscular Hgb 28.7 pg (27.0-32.0); Mean Platelet Vol. 10.5 fl (6.2-12.0); Monocyte# 0.32 X10^3/uL; Monocyte% 6.6 % (0-10); NRBC Flagged by Analyzer 0 % (0-5); Neutrophil # 4.08 X10^3/uL (2.7-7.7); Neutrophil % 83.8 % (47-70); POSITIVE DIFFERENTIAL YES; Platelet Count 168 K/mm3 (150-450); RBC Distribution Width CV 12.1 % (11.6-14.6); RBC Distribution Width SD 38.9 fl (35.1-43.9); Red Blood Count 4.39 M/mm3 (4.2-5.4); White Blood Count 4.9 K/mm3 (4.4-11.0)
[2020-12-30 11:24] LABS: Anion Gap 11 (5-15); BUN 18 mg/dL (7-18); BUN/Creat Ratio 18.9 RATIO (10-20); Calcium,Total 8.9 mg/dL (8.5-10.1); Chloride 104 mmol/L (98-107); Creatinine, Serum 0.95 mg/dL (0.55-1.02); EST Glomerular Filtration Rate 61 mL/min (>60); Est Glom Filt Rate - Afr Amer 74 mL/min (>60); Estimated Creatinine Clearance 49.37 ml/min; Glucose 121 mg/dL (74-106); Potassium 3.7 mmol/L (3.5-5.1); Sodium Level 137 mmol/L (136-145)
[2020-12-30 11:44] LABS: Differential Indicated SCAN CRITERIA MET
[2020-12-30 12:01] LABS: Differential Comment SCANNED
[2020-12-30] MEDS: Ketorolac 15 MG/ML Vial IV (13:53)
[2020-12-30 13:54] VITALS: BP 147/68; PULSE 96; RESP 20; O2SAT 100
[2020-12-30] MEDS: HYDROmorphone 0.5 MG/0.5 ML SYRINGE IV (13:54)
[2020-12-30 15:04] VITALS: BP 139/56; PULSE 100; RESP 16; O2SAT 100
== END 2020-12-30 15:06 | disposition home or self-care (01) ==
PROVIDERS: Emergency Provider Emergency Medicine; PCP Family Medicine
DX: R51.9 Headache, unspecified (principal); Z87.891 Personal history of nicotine dependence
CPT/HCPCS: 70450; 70544; 80048; 85025; 96374; 96375; 99283; J7030; A4216; J2405

== ENCOUNTER → 2021-01-06 14:34 | Outpatient (CLI) | payer MEDICARE, OTHER, SELFPAY ==
[2020-12-30 07:36] VITALS: BMI 29.0
--- NOTE | 2021-01-06 14:50 | RAD_ITS ---
STUDY: X-RAY - CERVICAL SPINE REASON FOR EXAM: Female, 75 years old. Occipital neuralgia TECHNIQUE: 3 view(s) of the cervical spine were obtained. COMPARISON: None FINDINGS: Normal anterior atlantoaxial articulation. Normal odontoid process. No fracture or subluxation. Normal cervical lordosis. Normal vertebral bodies and endplates. There is multi-level degenerative disc disease with multilevel disc space narrowing, most prominent at C4-C5, C5-C6 and C6-C7. Normal visualized intervertebral neuroforamina. The soft tissue structures are unremarkable. There are left carotid atherosclerotic changes. RAD/Cerv Spine 2 or 3 Views IMPRESSION: No fracture or subluxation. Multilevel degenerative disc disease. Electronically Signed: Mateo Alfonso MD at 9:58 EDT Tel , Service support ,
== END ==
PROVIDERS: PCP Family Medicine; Referring Provider Psychiatry & Neurology Neurology; Visit Provider Psychiatry & Neurology Neurology
DX: M54.81 Occipital neuralgia (principal)
CPT/HCPCS: 72040

== ENCOUNTER → 2021-05-13 10:28 | Outpatient (CLI) | payer MEDICARE, OTHER, SELFPAY ==
[2021-05-17 16:09] LABS: Free Kappa Light Chains 26.6 mg/L (3.3-19.4); Free Lambda Light Chains 20.2 mg/L (5.7-26.3)
[2021-05-17 17:38] LABS: KEPPRA (LEVETIRACETAM) 9.3 ug/mL (10.0-40.0)
== END ==
PROVIDERS: PCP Family Medicine; Referring Provider Nurse Practitioner Family; Visit Provider Nurse Practitioner Family
DX: G40.909 Epilepsy, unspecified, not intractable, without status epilepticus (principal); G62.9 Polyneuropathy, unspecified
CPT/HCPCS: 36415; 80177; 82140; 83883; 86335

== ENCOUNTER → 2021-05-24 08:54 | Outpatient (CLI) | payer MEDICARE, OTHER, SELFPAY ==
[2021-05-27 12:36] LABS: KEPPRA (LEVETIRACETAM) 11.3 ug/mL (10.0-40.0)
== END ==
PROVIDERS: PCP Family Medicine; Referring Provider Nurse Practitioner Family; Visit Provider Nurse Practitioner Family
DX: G40.909 Epilepsy, unspecified, not intractable, without status epilepticus (principal)
CPT/HCPCS: 36415; 80177

== ENCOUNTER → 2021-08-01 09:27 | Outpatient (CLI) | payer MEDICARE, OTHER, SELFPAY ==
--- NOTE | 2021-08-01 10:03 | RAD_ITS ---
EXAM: XR CHEST, 2 VIEWS CLINICAL INDICATION: MELON LOU TECHNIQUE: Frontal and lateral views of the chest. This report was created using GEOL[employer] report generation technology. COMPARISON: 08/22/2020 chest x-ray. FINDINGS: LUNGS AND PLEURAL SPACES: Unremarkable. No consolidation or edema. No pneumothorax. No effusion. HEART: Unremarkable. Cardiac silhouette not enlarged. MEDIASTINUM: Central airways and mediastinal contour are unremarkable. BONES/JOINTS: Degenerative changes of the spine. SOFT TISSUES: Unremarkable. VASCULATURE: Atherosclerotic calcifications of the nonenlarged thoracic aortic arch. RAD/Chest PA and Lateral IMPRESSION: No acute findings in the chest. Electronically Signed: Anand Katz MD at 3:31 EST Tel , Service support ,
[2021-08-01 10:44] LABS: Absolute Lymphocyte Count 1.43 X10^3/uL (0.83-4.51); Absolute Neutrophil Count 2.9 X10^3/uL (2.0-7.7); Basophil# 0.02 X10^3/uL; Basophil% 0.4 % (0-1); Eosinophil# 0.06 X10^3/uL; Eosinophils% 1.2 % (0-5); Hemoglobin 12.8 g/dL (12.0-15.0); Lymphocyte # 1.43 X10^3/ul (0.83-4.51); Lymphocyte % 29.5 % (19-41); Mean Corp Hgb Conc 32.8 g/dL (32-36); Mean Corpuscular Hgb 28.6 pg (27.0-32.0); Mean Corpuscular Volume 87.2 fL (81-99); Mean Platelet Vol. 9.8 fl (6.2-12.0); Monocyte% 8.2 % (0-10); NRBC Flagged by Analyzer 0 % (0-5); Neutrophil # 2.92 X10^3/uL (2.7-7.7); Neutrophil % 60.3 % (47-70); Platelet Count 208 K/mm3 (150-450); RBC Distribution Width CV 12.3 % (11.6-14.6); RBC Distribution Width SD 38.9 fl (35.1-43.9); Red Blood Count 4.47 M/mm3 (4.2-5.4); White Blood Count 4.9 K/mm3 (4.4-11.0)
[2021-08-01 11:15] LABS: AST(SGOT) 12 U/L (15-37); Alanine Aminotransfer ALT/SGPT 24 U/L (13-56); Albumin, Serum 3.6 g/dL (3.2-5.0); Alkaline Phosphatase 129 U/L (45-117); Anion Gap 6 (5-15); BUN 16 mg/dL (7-18); BUN/Creat Ratio 18.7 RATIO (10-20); Bilirubin, Direct 0.11 mg/dL (0.00-0.30); Calcium,Total 9.3 mg/dL (8.5-10.1); Chloride 109 mmol/L (98-107); Creatinine, Serum 0.86 mg/dL (0.55-1.02); EST Glomerular Filtration Rate 69 mL/min (>60); Est Glom Filt Rate - Afr Amer 84 mL/min (>60); Globulin 3.7 g/dL (2.2-4.2); Glucose 108 mg/dL (74-106); LDH 194 U/L (84-246); Protein, Total 7.3 g/dL (6.4-8.2); Sodium Level 142 mmol/L (136-145)
== END ==
PROVIDERS: PCP Family Medicine; Referring Provider Orthopaedic Surgery Hand Surgery; Visit Provider Orthopaedic Surgery Hand Surgery
DX: C43.62 Malignant melanoma of left upper limb, including shoulder (principal)
CPT/HCPCS: 36415; 71046; 80053; 82248; 83615; 85025

== ENCOUNTER → 2022-07-19 | Outpatient (CLI) | payer MEDICARE, OTHER, SELFPAY ==
--- NOTE | 2022-07-19 10:23 | RAD_ITS ---
EXAM: XR CHEST, 2 VIEWS CLINICAL INDICATION: CANCER TECHNIQUE: Frontal and lateral views of the chest. This report was created using [employer] report generation technology. COMPARISON: XR Chest dated 08/01/2021 FINDINGS: LUNGS AND PLEURAL SPACES: Normal. No consolidation or edema. No pneumothorax. No effusion. HEART: Normal heart size. MEDIASTINUM: No mediastinal or hilar mass. BONES/JOINTS: No acute abnormality. SOFT TISSUES: Normal. LYMPH NODES: Left axillary surgical clips related to lymph node dissection. RAD/Chest PA and Lateral IMPRESSION: No acute cardiopulmonary abnormality. Electronically Signed: Gustavo Wang MD at 11:31 EST ,
[2022-07-19 10:53] LABS: Absolute Lymphocyte Count 1.51 X10^3/uL (0.83-4.51); Absolute Neutrophil Count 3.3 X10^3/uL (2.0-7.7); Basophil# 0.02 X10^3/uL; Basophil% 0.4 % (0-1); Eosinophil# 0.06 X10^3/uL; Eosinophils% 1.1 % (0-5); Hematocrit 37.7 % (37-47); Hemoglobin 12.7 g/dL (12.0-15.0); Lymphocyte # 1.51 X10^3/ul (0.83-4.51); Lymphocyte % 27.9 % (19-41); Mean Corp Hgb Conc 33.7 g/dL (32-36); Mean Corpuscular Hgb 29.8 pg (27.0-32.0); Mean Corpuscular Volume 88.5 fL (81-99); Mean Platelet Vol. 9.7 fl (6.2-12.0); Monocyte# 0.48 X10^3/uL; Monocyte% 8.9 % (0-10); NRBC Flagged by Analyzer 0 % (0-5); Neutrophil # 3.33 X10^3/uL (2.7-7.7); Neutrophil % 61.3 % (47-70); Platelet Count 194 K/mm3 (150-450); RBC Distribution Width CV 13.2 % (11.6-14.6); Red Blood Count 4.26 M/mm3 (4.2-5.4); White Blood Count 5.4 K/mm3 (4.4-11.0)
[2022-07-19 11:21] LABS: AST(SGOT) 10 U/L (15-37); Alanine Aminotransfer ALT/SGPT 24 U/L (13-56); Albumin, Serum 3.4 g/dL (3.2-5.0); Alkaline Phosphatase 121 U/L (45-117); Anion Gap 5 (5-15); BUN 15 mg/dL (7-18); BUN/Creat Ratio 19.4 RATIO (10-20); Bilirubin, Direct 0.11 mg/dL (0.00-0.30); Calcium,Total 8.7 mg/dL (8.5-10.1); Chloride 108 mmol/L (98-107); Creatinine, Serum 0.77 mg/dL (0.55-1.02); EST Glomerular Filtration Rate 77 mL/min (>60); Est Glom Filt Rate - Afr Amer 93 mL/min (>60); Globulin 3.4 g/dL (2.2-4.2); Glucose 121 mg/dL (74-106); LDH 193 U/L (84-246); Protein, Total 6.8 g/dL (6.4-8.2); Sodium Level 140 mmol/L (136-145)
== END | disposition home or self-care (01) ==
LOC: RAD 10:05
PROVIDERS: PCP Family Medicine; Referring Provider Orthopaedic Surgery Hand Surgery; Visit Provider Orthopaedic Surgery Hand Surgery
DX: C43.9 Malignant melanoma of skin, unspecified (principal)
CPT/HCPCS: 36415; 71046; 80053; 82248; 83615; 85025

== ENCOUNTER 2022-08-17 11:00 | Outpatient (RCR) | payer MEDICARE, OTHER, SELFPAY ==
--- NOTE | 2022-06-21 13:04 | HP.PTEVAL_ITS ---
Patient's Visit Information MISTI HUERTA is a 76 year old F referred to Physical Therapy by GLO POTTER with a diagnosis of Left THR- posterior approach. Date of Evaluation: 06/21/22 Physical Therapist: Esperanza Palacios DPT - Visit Plan Frequency: 2-3x /Week Duration: 4 Weeks Plan: Follow posterior hip precautions. HEP Given IE: Standing HR, marching, hip abd, hip extn - Subjective May 23 Left THR by an MD in [place]- bone on bone- 50% WB for 4 weeks and started WBAT yesterday. Patient reports that its getting better- she has pinching and pulling in the groin area. She feels a little different every day. She reports that she has no pain. Yesterday was the first time she has taken Tylenol in a week. Fully I prior to surgery- no AD prior. She was pretty active prior to surgery. She would like to be able to go walking and get more mobile. Lives in a two story but all of her living is on one floor- lives with - fully accessible- 3 steps to enter- with a grab bar- not problems getting in/out. She has had home health for the last few weeks. She does not have any weight bearing exercises. She had her right hip replacement about 6 years ago. She is very cautious of her restrictions of 90 degrees, no pivoting, crossing her legs. Sleep: wakes up when she tries to roll over- she is sleeping on the left side. She had x-rays post op without complications. PMHx/Meds: no updates since 03/02/22. - Objective Posture: FH, RS- can correct but does not maintain. Gait: antalgic- decreased stance on the left LE with FWW. Stairs: will assess next visit as pt is fearful of weight bearing- will assess as she is more confident. HR/TR: able with UE A. SLS: weight shift but does not SLS. ROM: WNL within precautions. Strength: Core: fair minus, Hip: Flexion: 10lbs can straight leg raise, Flex: 15, Knee: 4+/5, Ankle: 5/5 - Balance/Special Test Scores WOMAC Total Score: 36 WOMAC Percentatge: 62.5000 - Goals Goal 1:: Patient will be I with HEP and progression Goal Time Frame: 4-6 Weeks Goal 2:: Patient will ambulate >300 feet with a normalized gait pattern with LRD Goal Time Frame: 4-6 Weeks Goal 3:: Patient will asc/desc 8 stairs recip with 1 HR Goal Time Frame: 4-6 Weeks Goal 4:: Patient will report 80% improvement Goal Time Frame: 4-6 Weeks Goal 5:: Patient will perform TUG under 10 seconds with LRD - Rehabilitation Potential Physical Therapy Diagnosis: Patient presents with hypomobility s/p left THR- she has decreased LE and core strength/stabilization, flex and muscular endurance leading to abnormal gait and increased pain with ADL's. Rehabilitation Potential: Good - Anticipated Interventions Patient/Client Instruction: Educate patient on: Benefits of Fitness Program Therapeutic Exercise to Include: Strength training, Endurance training, Balance training, Coordination, Agility training, Body mechanics, Postural training, Flexibilty training, Gait and locomotor training, Neuromotor development, Dynamic Lumbar Stabilization, Scapular Strength/Stabilization For the Purpose of:: To improve muscle performance and motor function TENS: Yes Cryotherapy (ice pack, ice massage): Yes Thermo therapy (hot pack): Yes Ultrasound (thermal/non thermal): No Thank you for the opportunity to evaluate your patient. For Medicare and Medicare HMO plans, please review the plan of care and approve it. It will need to be FAXED BACK to us at [phone] for Medicare purposes. For Medicare only, by signing this I certify the plan of care. Please let me know if there are questions or concerns regarding this plan of care. Physician Signature: Date :
--- NOTE | 2022-07-19 12:35 | HP.PTREVAL_ITS ---
GLO POTTER, It has been my pleasure to treat MISTI HUERTA over the last 11 visits for Left THR 05/23 - posterior approach. Please see the progress note below for an update on the physical therapy plan of care! Subjective: Patient reports that she doesn't feel that she is where she should be- she can't put on/off her socks- get her leg in her pants- she can't bend over. Objective/Function: Posture: fair throughout. Gait: no deviation noted- no AD- good arm swing trunk rotation Stairs: asc/desc 8 recip with 2 HR x 4 steps HR/ TR: able with UE A. SLS: 5 seconds ROM: WNL- Strength: Core: fair, Hip: Flexion: 15lbs, Flex: 30, Knee: 5/5, Ankle: 5/5 Plan Plan: 07/19/22: Continue 2x a week for 4 weeks- progression with strength and ROM- precautions lifted 07/19/22 per pt report. IE: Follow posterior hip precautions Balance/Gait/Functional tests - Balance/Special Test Scores Lower Extremity Functional Score: 54 Tug Test: 20-30sec.=variable mobility WOMAC Total Score: 10 WOMAC Percentage: 89.5900 Goals Goal 1:: Patient will be I with HEP and progression Goal Time Frame: 4-6 Weeks Goal Progress: Progressing Goal 2:: Patient will ambulate >300 feet with a normalized gait pattern with LRD Goal Time Frame: 4-6 Weeks Goal Progress: Progressing Goal 3:: Patient will asc/desc 8 stairs recip with 1 HR Goal Time Frame: 4-6 Weeks Goal Progress: Progressing Goal 4:: Patient will report 80% improvement Goal Time Frame: 4-6 Weeks Goal Progress: Progressing Goal 5:: Patient will perform TUG under 10 seconds with LRD Goal Progress: Progressing Anticipated Interventions Patient/Client Instruction: Educate patient on: Benefits of Fitness Program Therapeutic Exercise to Include: Strength training, Endurance training, Balance training, Coordination, Agility training, Body mechanics, Postural training, Flexibilty training, Gait and locomotor training, Neuromotor development, Dynamic Lumbar Stabilization, Scapular Strength/Stabilization For the Purpose of:: To improve muscle performance and motor function TENS: Yes Cryotherapy (ice pack, ice massage): Yes Thermo therapy (hot pack): Yes Ultrasound (thermal/non thermal): No Please do not hesitate to contact me at [phone] by phone or if you have questions or concerns regarding this new plan of care! Sincerely, JOSSELYN MarleyT
--- NOTE | 2022-08-17 12:03 | HP.PTDCSUM_ITS ---
It has been my pleasure to treat MISTI HUERTA referred by GLO POTTER, with the diagnosis of Left THR 05/23 - posterior approach for a total of 19 visit(s). Discharge Date: Please see the following information for a summary of their discharge status. Subjective: Patient reports that she is doing okay, she is having a lot of groin pain and saw the surgeon yesterday who put her on a Predisone dose pack. She is back to all of her normal ADL's but does still have some issues putting on her shoes and socks % Improvement: 100 Objective/Function: Posture: fair throughout. Gait: no deviation noted- no AD- good arm swing trunk rotation Stairs: asc/desc 8 recip with no HR HR/TR: able with UE A. SLS: 15 seconds ROM: WNL- Strength: Core: fair, Hip: Flexion: 30lbs, Flex:35, Knee: 5/5, Ankle: 5/5 Goal 1:: Patient will be I with HEP and progression Goal Progress: Goal Met Goal 2:: Patient will ambulate >300 feet with a normalized gait pattern with LRD Goal Progress: Goal Met Goal 3:: Patient will asc/desc 8 stairs recip with 1 HR Goal Progress: Goal Met Goal 4:: Patient will report 80% improvement Goal Progress: Goal Met Goal 5:: Patient will perform TUG under 10 seconds with LRD Goal Progress: Goal Met Plan: 08/17/22: Discharge to [facility] If there are questions or concerns regarding this patient's physical therapy, please feel free to call me at [phone]. Thank you for the referral of this patient. Sincerely, Esperanza Palacios, JOSSELYNT Balance/Gait/Functional tests - Balance/Special Test Scores Lower Extremity Functional Score: 54 Tug Test: <10 sec.=free mobile WOMAC Total Score: 10 WOMAC Percentage: 89.5900
== END 2022-08-17 12:22 | disposition home or self-care (01) ==
LOC: PT 11:00
PROVIDERS: PCP Family Medicine
DX: Z47.1 Aftercare following joint replacement surgery (principal); Z96.642 Presence of left artificial hip joint
CPT/HCPCS: 97110; 97162; 97164

== ENCOUNTER 2022-09-14 12:34 | Observation (INO) | payer MEDICARE, OTHER, SELFPAY ==
[2022-09-14 12:37] VITALS: BP 182/98; PULSE 119; RESP 18; TEMP 36; O2SAT 98; BMI 29.3
--- NOTE | 2022-09-14 13:47 | EDS_ITS ---
HPI History of Present Illness Chief Complaint: Allergic Reaction Detail of Chief Complaint: Allergic reaction Informant: patient Narrative Narrative: Patient presents the emergency department concerned about an allergic reaction to Bactrim. Patient states that 2 days ago she took Bactrim before dental appointment which she is done in the past. Last evening she developed difficulty with lip and tongue swelling as well as throat swelling. Patient thinks she has had this reaction before. Patient used to take Bactrim without difficulty. Patient yesterday also had immunotherapy with Keytruda. Patient denies eating unusual foods. Patient complains more of the swelling to the left side of her tongue and throat. Prior similar symptoms: Yes PFSH [facility] Medical History (Updated 09/14/22 @ 15:[address] Rogers Atkins, DO) COVID-19 Essential hypertension GERD (gastroesophageal reflux disease) History of cerebellar stroke Hyperlipidemia Myeloma Seizure Seizure Home Medications metoprolol succinate 50 mg tablet,extended release 24 hr 50 mg PO DAILY heart rate ##0 08/15/20 [Rx Last Taken 08/12/20] aspirin 81 mg tablet,delayed release 81 mg PO DAILY #30 tabs 08/27/20 [Rx Last Taken Unknown] atorvastatin 40 mg tablet 40 mg PO DAILY 09/24/20 [History Last Taken Unknown] pantoprazole 40 mg tablet,delayed release 40 mg PO DAILY 09/24/20 [History Last Taken Unknown] melatonin 5 mg capsule 5 mg PO QHS PRN 10/26/20 [History Last Taken Unknown] polyethylene glycol 3350 17 gram/dose oral powder (Miralax) 17 g PO DAILY PRN 10/26/20 [History Last Taken Unknown] psyllium husk 0.4 gram capsule (Metamucil) 0.4 g PO DAILY PRN 10/26/20 [History Last Taken Unknown] cyclobenzaprine 10 mg tablet 5 mg PO TID PRN PRN muscle spasm 11/05/20 [History Last Taken Unknown] lisinopril 10 mg tablet 20 mg PO DAILY 08/31/22 [History Last Taken Unknown] Allergy/AdvReac Type Severity Reaction Status Date / Time amoxicillin AdvReac Severe Diarrhea Verified 08/31/22 08:44 sulfamethoxazole AdvReac Swelling Verified 09/14/22 12:37 [From Bactrim] trimethoprim [From Bactrim] AdvReac Swelling Verified 09/14/22 12:37 Family History Brother Alcoholism Asthma Myocardial infarction, Onset Age: 52 Seizures Skin cancer Sister CVA (cerebral vascular accident) Asthma Grandfather Asthma Father Myocardial infarction, Onset Age: 46 Had at age 46 & 62 Mother Myocardial infarction, Onset Age: 82 Surgical History History of amputation of finger History of cataract surgery History of eye surgery History of right hip replacement History of total left hip replacement Social History (Updated 08/31/22 @ 08:47 by Elsa Andrade) Smoking Status: Never smoker Tobacco: How many years used: 30 how long ago did patient quit smokin years ago second hand exposure: No alcohol intake: current alcohol intake frequency: holidays/special occasions only Alcohol type: wine substance use type: does not use amy/latter day: None seatbelt use: always ROS ROS ED Review of Systems ROS Unobtainable: other Constitutional Constitutional ED: Reports lethargy; Denies chills, fever(s), sweats or weight loss Eyes Eyes: Denies blurry vision, change in vision or diplopia ENT ENT ED: Reports other Details: Lip and tongue and throat swelling ; Denies rhinorrhea or sore throat Cardiovascular Cardiovascular: Denies chest pain, orthopnea or racing heartbeat Respiratory/Chest Respiratory/Chest: Denies cough, dyspnea, dyspnea on exertion, orthopnea or sputum Gastrointestinal Gastrointestinal: Denies abdominal pain, diarrhea, nausea or vomiting Genitourinary Genitourinary ED: Denies dysuria, hematuria or urinary frequency Musculoskeletal Musculoskeletal: Denies arthralgias, back pain, myalgias or neck pain Integumentary Denies abscess, Abrasions or rash Neurologic Neurologic: Denies headache(s) or weakness Psychiatric Psychiatric: Denies anxiety, depression or suicidal thoughts Endocrine Endocrinology: Denies polydipsia, polyphagia or polyuria Hematologic/Lymphatic Hematologic/Lymphatic: Denies easy bleeding, easy bruising or lymphadenopathy Allergic/Immunologic Allergic/Immunologic ED: Denies mouth swelling, tongue swelling or urticaria EXAM Physical Exam Const Vital Signs: 09/14/22 12:37 Temperature 96.8 F L Temperature Source Temporal Pulse Rate 119 H Respiratory Rate 18 Blood Pressure 182/98 H Blood Pressure Mean 126 Pulse Ox 98 Oxygen Delivery Method Room Air Positive well nourished and well developed General Appearance ED: well developed and NAD HEENT Reports TM's clear and moist mucous membranes HEENT Narrative: Patient with soft tissue swelling of the upper lip as well as the tongue and oropharynx. No stridor on exam. normocephalic and atraumatic; Negative for trauma or tenderness Tympanic Membrane ED: Yes TM's clear Eyes PERRL and EOMs intact bilaterally General Eye ED: Negative for pale conjunctiva or scleral icterus Neck no lymphadenopathy, supple and no JVD General: Negative for tenderness Chest Wall inspection of chest normal and palpation of chest normal Chest: Negative for tenderness Resp normal respiratory effort and clear to auscultation bilaterally Effort and Inspection: Negative for respiratory distress or pain with movement Auscultation: Negative for rhonchi, wheezes or diminished lung sounds Cardio regular rate, regular rhythm, S1 normal heart sound, S2 normal heart sound and no murmurs Peripheral Pulses: pulses 2+ throughout GI normal to inspection, nondistended, normoactive bowel sounds, soft to palpation, non-tender, non-distended and no masses Back/Spine no CVA tenderness and no thoracic nor lumbar tenderness Extremity normal to inspection General Extremety ED: Negative for edema General Extremity: Negative for edema Neuro oriented x3, CN's II-XII intact bilaterally, no sensory deficits noted and gait normal Sensorium / Orientation: awake, alert, oriented to person, oriented to place and oriented to time Motor Exam: strength 5/5 throughout and strength abnormal Psych mental status grossly normal Skin no rashes or lesions noted and no wounds MDM MDM MDM Narrative Medical decision making narrative: Patient with evidence of angioedema of the lip and tongue as well as the oropharynx. Patient started on Solu-Medrol 125 mg IV as well as given Benadryl and Pepcid. Patient placed on hospital monitor. Case discussed with hospitalist will evaluate patient for admission for observation. At this time there is no evidence of stridor or acute respiratory compromise. Discharge Plan Triage Chief Complaint: Allergic Reaction ED Provider: Rogers Atkins Dx/Rx/DC Orders Clinical Impression: Allergic reaction, Angioedema, History of hypertension Prescriptions: No Action pantoprazole 40 mg tablet,delayed release (DR/EC) 40 mg PO DAILY atorvastatin 40 mg tablet 40 mg PO DAILY psyllium husk [Metamucil] 0.4 gram capsule 0.4 g PO DAILY PRN polyethylene glycol 3350 [Miralax] 17 gram/dose powder 17 g PO DAILY PRN melatonin 5 mg capsule 5 mg PO QHS PRN cyclobenzaprine 10 mg tablet 5 mg PO TID PRN PRN (Reason: muscle spasm) lisinopril 10 mg tablet 20 mg PO DAILY metoprolol succinate 50 MG tablet 50 mg PO DAILY Qty: 0 0RF Rx Instructions: Hold if heart rate less than 60/min aspirin 81 MG tablet 81 mg PO DAILY Qty: 30 1RF Primary Care Provider: Marvin Malloy Referrals: Marvin Malloy MD [Primary Care Provider] - Disposition Disposition: Acute Care Hospital [facility]
[2022-09-14] MEDS: MethylPREDNISolone 125 MG/2 ML Vial IV (14:12)
[2022-09-14] MEDS: DiphenhydrAMINE 50 MG/ML Syringe IV (14:12)
[2022-09-14] MEDS: Famotidine 200 MG/20 ML MDV 20 MG in 0.9% Normal Saline (Pres. free 8 ML 300 MG IV (14:13)
--- NOTE | 2022-09-14 15:22 | NURSING ---
MED SURG OBS TERELETSKY ANGIOEDEMA, ALLERGIC REACTION
[2022-09-14 16:14] VITALS: BP 164/82; PULSE 117; RESP 16; TEMP 37.2; O2SAT 92
[2022-09-14 16:18] VITALS: PULSE 114
[2022-09-14 16:51] VITALS: BMI 28.9
[2022-09-14 17:00] VITALS: BP 167/88; PULSE 114; RESP 18; TEMP 37.2; O2SAT 98
[2022-09-14] MEDS: DiphenhydrAMINE 25 MG Capsule PO ×2 (18:03→23:30)
--- NOTE | 2022-09-14 19:33 | PCM.HP.STD ---
HPI - General General Date of Admission: 09/14/22 Date of Service: 09/14/22 Chief Complaint: Allergic reaction due to medication HPI Narrative MISTI HUERTA, is a 77 F who presents to the emergency room at [facility] with swelling of her lips and to a lesser extent her tongue over the last 48 hours. Patient was placed on Bactrim for prophylaxis for dental procedure, she stated to the emergency room physician that the last time she was on Bactrim she had a similar reaction. Patient states the evening she was placed on Bactrim, she had some soreness of her throat, she Zenz stated that the next day she noticed swelling of her lips and her tongue was raw, patient does not have any complaints of shortness of breath. Evaluation in the emergency room revealed the patient's lips to be swollen, this examiner did not appreciate any significant swelling of her tongue. She was given IV Solu-Medrol in the emergency room, IV Pepcid, and IV Benadryl. Patient will be placed into observation status for acute allergic reaction, as a further note, patient is on lisinopril but she has had no problems with lisinopril in the past and she did not have her symptomology until she took Bactrim. [facility] Medical History COVID-19 Essential hypertension GERD (gastroesophageal reflux disease) History of cerebellar stroke Hyperlipidemia Myeloma Seizure Seizure Home Medications metoprolol succinate 50 mg tablet,extended release 24 hr 50 mg PO DAILY heart rate ##0 08/15/20 [Rx Last Taken 09/13/22] atorvastatin 40 mg tablet 40 mg PO DAILY cholesterol 09/24/20 [History Last Taken 09/13/22] pantoprazole 40 mg tablet,delayed release 40 mg PO DAILY gerd 09/24/20 [History Last Taken 09/13/22] melatonin 5 mg capsule 5 mg PO QHS PRN Sleep 10/26/20 [History Last Taken 09/12/22] polyethylene glycol 3350 17 gram/dose oral powder (Miralax) 17 g PO DAILY PRN Constipation 10/26/20 [History Last Taken Unknown] psyllium husk 0.4 gram capsule (Metamucil) 0.4 g PO DAILY PRN Constipation 10/26/20 [History Last Taken Unknown] cyclobenzaprine 10 mg tablet 5 mg PO TID PRN PRN muscle spasm 11/05/20 [History Last Taken Unknown] lisinopril 10 mg tablet 40 mg PO DAILY bp 08/31/22 [History Last Taken 09/13/22] aspirin 81 mg tablet,delayed release 81 mg PO DAILY heart health 09/14/22 [History Last Taken 09/13/22] Allergy/AdvReac Type Severity Reaction Status Date / Time amoxicillin AdvReac Severe Diarrhea Verified 08/31/22 08:44 sulfamethoxazole AdvReac Swelling Verified 09/14/22 12:37 [From Bactrim] trimethoprim [From Bactrim] AdvReac Swelling Verified 09/14/22 12:37 Family History Brother Alcoholism Asthma Myocardial infarction, Onset Age: 52 Seizures Skin cancer Sister CVA (cerebral vascular accident) Asthma Grandfather Asthma Father Myocardial infarction, Onset Age: 46 Had at age 46 & 62 Mother Myocardial infarction, Onset Age: 82 Surgical History History of amputation of finger History of cataract surgery History of eye surgery History of right hip replacement History of total left hip replacement Social History (Updated 08/31/22 @ 08:47 by Elsa Andrade) Smoking Status: Former smoker Tobacco: How many years used: 30 how long ago did patient quit smokin years ago second hand exposure: No alcohol intake: current alcohol intake frequency: holidays/special occasions only Alcohol type: wine substance use type: does not use amy/judaism: None seatbelt use: always ROS ROS Narrative Patient complains of lip swelling and some tongue discomfort with swelling over the past 48 hours Constitutional Constitutional: Denies anorexia, change in weight, fever(s), night sweats or weakness Eyes Eyes: Denies blurry vision, change in vision, discharge from eye(s) or eye pain Cardiovascular Cardiovascular: Denies chest pain, claudication, dyspnea on exertion, edema, lightheadedness, orthopnea or palpitations Respiratory/Chest Respiratory/Chest: Denies cough, excessive phlegm production, hemoptysis, productive cough, shortness of breath at rest or shortness of breath with exertion Gastrointestinal Gastrointestinal: Denies abdominal pain, constipation, diarrhea, hematemesis, hematochezia, melena, nausea or vomiting Genitourinary Genitourinary: Denies dysuria, hematuria, urinary frequency, urinary hesitancy, urinary incontinence or urinary urgency Musculoskeletal Musculoskeletal: Denies back pain, joint pain, joint stiffness, joint swelling, myalgias or neck pain Neurologic Neurologic: Denies abnormal gait, abnormal speech, confusion, disequilibrium, dizziness, focal weakness, headache(s), loss of vision, numbness, other visual disturbances, paresthesias, syncope or tingling Psychiatric Psychiatric: Denies anxiety, cognitive impairment, depression, irritability, mood swings or suicidal ideation Endocrine Endocrinology: Denies change in body appearance, cold intolerance, excessive sweating, heat intolerance, polydipsia or polyuria Hematologic/Lymphatic Hematologic/Lymphatic: Denies none, anemia, easy bleeding, easy bruising or lymphadenopathy Allergic/Immunologic Allergic/Immunologic: Denies rhinitis, urticaria, eczemia or asthma Vital Signs Vital Signs Vital Signs: 09/14/22 12:37 09/14/22 16:14 09/14/22 17:00 Temperature 96.8 F L 98.9 F 98.9 F Temperature Source Temporal Temporal Oral Pulse Rate 119 H 117 H 114 H Respiratory Rate 18 16 18 Blood Pressure 182/98 H 164/82 H 167/88 H Blood Pressure Mean 126 109 114 Blood Pressure Source Monitor Blood Pressure Position Semi-Fowlers Blood Pressure Location Right Arm Pulse Ox 98 92 98 Oxygen Delivery Method Room Air Room Air Room Air 09/14/22 16:18 Temperature Temperature Source Pulse Rate 114 H Respiratory Rate Blood Pressure Blood Pressure Mean Blood Pressure Source Blood Pressure Position Blood Pressure Location Pulse Ox Oxygen Delivery Method Room Air Weight Weight: 81.284 kg Body Mass Index (BMI) 28.9 Physical Exam Const alert, oriented x3, no apparent distress, average body habitus and healthy appearing General Appearance: cooperative, well kempt and well developed Orientation / Consciousness: awake, oriented to person, oriented to place and oriented to time HEENT normocephalic, head/scalp atraumatic, hearing grossly normal bilaterally and moist oral mucous membranes HEENT Narrative: There is swelling of the upper and lower lips noted, there is no overt swelling of the tongue noted on examination, mucous membranes are moist, there is no evidence of stridor Eyes PERRL, EOMs intact bilaterally and conjunctivae normal Neck supple, no JVD, thyroid normal and no carotid bruits General: trachea midline Resp normal respiratory effort, no retractions, no use of accessory muscles and clear to auscultation bilaterally Auscultation: Negative for rales, rhonchi or wheezes Cardio regular rate, regular rhythm, S1 normal heart sound, S2 normal heart sound, no murmurs, no rub and no gallops GI normal to inspection, nondistended, normoactive bowel sounds, soft to palpation, non-tender and non-distended Extremity no clubbing, cyanosis or edema Skin no rashes or lesions noted General Skin Exam: no breakdown Neuro oriented x3, CN's II-XII intact bilaterally, no focal motor deficits and no sensory deficits noted Sensorium / Orientation: awake and alert Speech: speech normal Psych affect normal Assessment & Plan Assessment/Plan (1) Allergic reaction: PLAN: Plan 1. Allergic reaction to Bactrim-patient is having no respiratory distress at this time-patient will be placed in observation status on MedSurg 3, IV Solu-Medrol will be continued along with p.o. Benadryl. Patient will be reevaluated tomorrow for possible discharge, I do not think this presentation is due to her lisinopril. #2 history of melanoma-patient recently had Keytruda, she follows up with Dr. Palma #3 essential hypertension-patient will remain on her present medication #4 cerebrovascular disease-patient has a past history of a left cerebellar infarct, she will remain on her present medications Total clinical time spent by myself addressing the patient's medical issues, reviewing all her data, and collaborating with the patient's care team: 55 minutes Charges/Coding Visit Charges Inpatient E&M: 81528 Init Hosp L2
[2022-09-14 20:42] VITALS: PULSE 117; RESP 18; O2SAT 96
[2022-09-14 22:06] VITALS: BP 159/80; PULSE 113; RESP 20; TEMP 36.7; O2SAT 95
[2022-09-14] MEDS: 0.9% Saline Lock 10 ML Syringe IV (22:10)
[2022-09-14] MEDS: Atorvastatin Calcium 40 MG Tablet PO (22:10)
[2022-09-14] MEDS: MELATONIN 10 MG TABLET 5 MG PO (23:35)
[2022-09-15] VITALS (7 sets, daily range): BP systolic 150–167; BP diastolic 66–83; PULSE 86–99; RESP 18–20; TEMP 36.5–36.7; O2SAT 85–98
[2022-09-15] MEDS: DiphenhydrAMINE 25 MG Capsule PO (06:13)
[2022-09-15] MEDS: 0.9% Saline Lock 10 ML Syringe IV (06:18)
[2022-09-15] MEDS: Aspirin E.C. 81 MG Tablet PO (09:17)
[2022-09-15] MEDS: Pantoprazole Sodium 40 MG Tablet PO (09:17)
[2022-09-15] MEDS: Metoprolol(XL)Succ 50 MG Tablet PO (09:17)
[2022-09-15] MEDS: Lisinopril 40 MG Tablet PO (09:18)
[2022-09-15] MEDS: NYSTATIN 500,000 UNIT/5 ML UDC 500000 UNIT PO (09:27)
--- NOTE | 2022-09-15 09:34 | DCINST_ITS ---
Discharge Instructions Diet Discharge Diet: Low fat / Low cholesterol Activity Discharge Activity: Return to Normal Activity Dressing / Incision Call your doctor if you observe: Fever of 101 or Higher, Shortness of breath, Dizziness, Fainting spells, Swelling in the ankles, Chest pain and Increased palpitations (irregular heartbeat) Follow Up Care Test Results: Test results from this visit will be discussed in further detail at your follow- up appointment, if applicable. Discharge Plan Admission Admit Date/Time: 09/14/22 16:48 Attending Provider: Mak Roth Primary Care Provider: Marvin Malloy Consulting Providers: Rufus Silver Discharge Orders/Prescriptions Prescriptions: New prednisone 20 mg tablet 40 mg PO DAILY 5 Days Qty: 10 0RF Continued pantoprazole 40 mg tablet,delayed release (DR/EC) 40 mg PO DAILY atorvastatin 40 mg tablet 40 mg PO DAILY psyllium husk [Metamucil] 0.4 gram capsule 0.4 g PO DAILY PRN (Reason: Constipation) polyethylene glycol 3350 [Miralax] 17 gram/dose powder 17 g PO DAILY PRN (Reason: Constipation) melatonin 5 mg capsule 5 mg PO QHS PRN (Reason: Sleep) cyclobenzaprine 10 mg tablet 5 mg PO TID PRN PRN (Reason: muscle spasm) lisinopril 10 mg tablet 40 mg PO DAILY metoprolol succinate 50 MG tablet 50 mg PO DAILY Qty: 0 0RF Rx Instructions: Hold if heart rate less than 60/min aspirin 81 MG tablet,delayed release (DR/EC) 81 mg PO DAILY Referrals / Follow Up: Marvin Malloy MD [Primary Care Provider] - Within 1 Week Disposition Disposition (needs filled in before D/C Order can be placed): Home, Self Care
--- NOTE | 2022-09-15 10:01 | CASEMGMT ---
RN CM in to pt room, pt lying in bed in no distress. Pt denies any homegoing needs, pt up in room independently.
--- NOTE | 2022-09-15 12:59 | DS.PCM_ITS ---
Providers Date of Admission: 09/14/22 Primary Care Physician: Dr. Marvin Malloy MD Reason For Visit: ANGIOEDEMA, ALLERGIC REACTION Diagnosis Discharge Diagnosis (1) Allergic reaction: Status: Acute Code(s): T78.40XA - Allergy, unspecified, initial encounter Medications at Discharge Home Medications metoprolol succinate 50 mg tablet,extended release 24 hr 50 mg PO DAILY heart rate ##0 08/15/20 atorvastatin 40 mg tablet 40 mg PO DAILY cholesterol 09/24/20 pantoprazole 40 mg tablet,delayed release 40 mg PO DAILY gerd 09/24/20 melatonin 5 mg capsule 5 mg PO QHS PRN Sleep 10/26/20 polyethylene glycol 3350 17 gram/dose oral powder (Miralax) 17 g PO DAILY PRN Constipation 10/26/20 psyllium husk 0.4 gram capsule (Metamucil) 0.4 g PO DAILY PRN Constipation 10/26/20 cyclobenzaprine 10 mg tablet 5 mg PO TID PRN PRN muscle spasm 11/05/20 lisinopril 10 mg tablet 40 mg PO DAILY bp 08/31/22 aspirin 81 mg tablet,delayed release 81 mg PO DAILY heart health 09/14/22 nystatin 100,000 unit/mL oral suspension 500,000 unit (5 mL) PO 4X/DAY 7 days #140 mL 09/15/22 prednisone 20 mg tablet 40 mg PO DAILY 5 days #10 tabs 09/15/22 Hospital Course Operations None Procedures None Summary of Care Provided Minutes Spent on Discharge: 35 Hospital Course: Per HPI: MISTI HUERTA, is a 77 F who presents to the emergency room at [facility] with swelling of her lips and to a lesser extent her tongue over the last 48 hours.? Patient was placed on Bactrim for prophylaxis for dental procedure, she stated to the emergency room physician that the last time she was on Bactrim she had a similar reaction.? Patient states the evening she was placed on Bactrim, she had some? soreness of her throat, she Zenz stated that the next day she noticed swelling of her lips and her tongue was raw, patient does not have any complaints of shortness of breath.? Evaluation in the emergency room revealed the patient's lips to be swollen, this examiner did not appreciate any significant swelling of her tongue.? She was given IV Solu-Medrol in the emergency room, IV Pepcid, and IV Benadryl. Patient will be placed into observation status for acute allergic reaction, as a further note, patient is on lisinopril but she has had no problems with lisinopril in the past and she did not have her symptomology until she took Bactrim. Hospital Course: 1. Allergic reaction to Bactrim/thrush?77-year-old female whose had a reaction to Bactrim before presents to the hospital with a repeat episode. She initially had some perioral swelling during a dental cleaning about 6 to 7 months ago and at that time she thought that it was due to the tooth [place] however this time did not use a tooth [place] and she still had a reaction which highlighted the possibility for Bactrim. She denies any shortness of breath or difficulty swallowing. She is able to maintain her airway and she did receive a couple doses of steroids as well as Benadryl. She was started on nystatin secondary to mouth pain with evidence of possible thrush. As we continued for 7 days. I discussed with her the plan for discharge today she expressed understanding of the risk benefits going home and she would like to go home today. She is to follow-up with her PCP in 3 to 5 days. She was given a prescription for prednisone as well. 2. History of melanoma, hypertension, hyperlipidemia, GERD are all chronic medical conditions which complicate her care. Her home medications were continued where appropriate Physical Exam Narrative General: Alert, Oriented x3, Cooperative, No apparent distress HEENT: Atraumatic, PERRLA, EOMI, Normocephalic Oral: Moist Mucosa, evidence of thrush, slight swelling of her lips Neck: Supple, No JVD Lungs: Clear to auscultation, Normal air movement, No rhonchi, No wheeze, No rales Cardiovascular: Regular rate, Regular Rhythm, Normal S1, Normal S2, No murmurs Abdomen: Soft, Non Tender, Non-Distended, No Hepato-splenomegaly Extremities: No edema, Capillary Refill Less than 3 Seconds Skin: No rashes, No breakdown Musculoskeletal: No Tenderness to Palpation of Joints or Extremities Neurological: Cranial nerves II-XII grossly intact, Motor Exam 5/5 strength throughout, Sensory exam intact to light touch and pain Psych/Mental Status: Normal Affect, Appropriate Weight / BMI Weight Weight: 179 lb 3.2 oz Body Mass Index (BMI) 28.9 D/C Instructions Discharge Diet: Low fat / Low cholesterol Call your doctor if you observe: Fever of 101 or Higher, Shortness of breath, Dizziness, Fainting spells, Swelling in the ankles, Chest pain and Increased palpitations (irregular heartbeat) Meaningful Use Info Meaningful Use Diagnoses (Choose all that apply): None applicable Discharge Plan Admission Admit Date/Time: 09/14/22 16:48 Attending Provider: Mak Roth Primary Care Provider: Marvin Malloy Consulting Providers: Rufus Silver Discharge Orders/Prescriptions Prescriptions: New prednisone 20 mg tablet 40 mg PO DAILY 5 Days Qty: 10 0RF nystatin 100,000 unit/mL Suspension 500,000 unit PO 4X/DAY 7 Days Qty: 140 0RF Continued pantoprazole 40 mg tablet,delayed release (DR/EC) 40 mg PO DAILY atorvastatin 40 mg tablet 40 mg PO DAILY psyllium husk [Metamucil] 0.4 gram capsule 0.4 g PO DAILY PRN (Reason: Constipation) polyethylene glycol 3350 [Miralax] 17 gram/dose powder 17 g PO DAILY PRN (Reason: Constipation) melatonin 5 mg capsule 5 mg PO QHS PRN (Reason: Sleep) cyclobenzaprine 10 mg tablet 5 mg PO TID PRN PRN (Reason: muscle spasm) lisinopril 10 mg tablet 40 mg PO DAILY metoprolol succinate 50 MG tablet 50 mg PO DAILY Qty: 0 0RF Rx Instructions: Hold if heart rate less than 60/min aspirin 81 MG tablet,delayed release (DR/EC) 81 mg PO DAILY Referrals / Follow Up: Marvin Malloy MD [Primary Care Provider] - Within 1 Week Disposition Disposition (needs filled in before D/C Order can be placed): Home, Self Care Charges/Coding Visit Charges Inpatient E&M: 36578 Disch Hosp >30min
== END 2022-09-15 12:41 | disposition home or self-care (01) ==
LOC: ED 15:19 → MS3 17:46
PROVIDERS: Admitting Provider Internal Medicine; Emergency Provider Emergency Medicine; PCP Family Medicine; Visit Provider Family Medicine
DX: T78.3XXA Angioneurotic edema, initial encounter (principal); C43.9 Malignant melanoma of skin, unspecified; T36.8X5A Adverse effect of other systemic antibiotics, initial encounter; Z87.891 Personal history of nicotine dependence; Z86.16 Personal history of COVID-19; I10 Essential (primary) hypertension; E78.5 Hyperlipidemia, unspecified; Z79.899 Other long term (current) drug therapy; Z79.82 Long term (current) use of aspirin; B37.0 Candidal stomatitis; K21.9 Gastro-esophageal reflux disease without esophagitis
CPT/HCPCS: 96374; 96375; 96376; 99221; 99284; A4216; G0378; J3490

== ENCOUNTER 2023-05-11 18:47 | Emergency (ER) | payer MEDICARE, OTHER, SELFPAY ==
[2023-05-11 18:49] VITALS: BP 152/115; PULSE 76; RESP 16; TEMP 36.6; O2SAT 100; BMI 28.5
--- NOTE | 2023-05-11 19:06 | CT_ITS ---
STUDY: CT BRAIN WITHOUT CONTRAST REASON FOR EXAM: Female, 77 years old. headache/ r/o bleed RADIATION DOSAGE (If Supplied By Facility): CTDIvol = ( 44.99 ) mGy, DLP = ( 779.24 ) mGycm TECHNIQUE: Transaxial CT imaging of the brain was performed without administration of intravenous contrast material. Individualized dose optimization techniques were used for this CT. COMPARISON: 12/30/2020 FINDINGS: Normal soft tissue structures. Normal calvarium. There is mild cerebral atrophy with widening of the extra-axial spaces and ventricular dilatation. There are areas of decreased attenuation within the white matter tracts of the supratentorial brain, consistent with microvascular disease changes. Normal basal ganglia and thalami. Normal brainstem. Normal cerebellum. There is no intracranial hemorrhage. There are no findings of an acute ischemic infarction. Normal visualized paranasal sinuses. CT/Brain/Head without Contrast IMPRESSION: Chronic involutional changes of the brain. Electronically Signed: Levy Tristan MD at 19:51 EDT ,
[2023-05-11] MEDS: 0.9% Normal Saline (1000mL) 1,000 ML 999 ML IV (20:42)
[2023-05-11] MEDS: Ketorolac 15 MG/ML Vial IV (20:43)
[2023-05-11] MEDS: DiphenhydrAMINE 50 MG/ML Syringe 25 MG IV (20:46)
[2023-05-11] MEDS: proCHLORPERazine 10 MG/2 ML Vial IV (20:47)
[2023-05-11 20:51] VITALS: BP 168/64; PULSE 75; RESP 16; O2SAT 97
[2023-05-11 22:22] VITALS: BP 159/60; PULSE 74; RESP 16; O2SAT 97
--- NOTE | 2023-05-11 22:41 | EX.ED.VIS.HA ---
HPI History of Present Illness Chief Complaint: Headache Narrative Narrative: 7-year-old female with history of malignant melanoma with metastasis, occipital neuralgia presenting with headache which is more superior on the head. She had MRI couple of days ago which was normal and this was of her brain. Headache started today. Patient is on chemotherapy. She sees Dr. Palma. No visual changes. She does complain of light sensitivity. No history of migraine. [facility] Medical History COVID-19 Essential hypertension Former smoker GERD (gastroesophageal reflux disease) History of cerebellar stroke History of hypertension Hyperlipidemia Myeloma Seizure Seizure Seizures Stroke/cerebrovascular accident Home Medications metoprolol succinate 50 mg tablet,extended release 24 hr 50 mg PO DAILY heart rate ##0 08/15/20 [Rx Last Taken 09/13/22] atorvastatin 40 mg tablet 40 mg PO DAILY cholesterol 09/24/20 [History Last Taken 09/13/22] pantoprazole 40 mg tablet,delayed release 40 mg PO DAILY gerd 09/24/20 [History Last Taken 09/13/22] melatonin 5 mg capsule 5 mg PO QHS PRN Sleep 10/26/20 [History Last Taken 09/12/22] polyethylene glycol 3350 17 gram/dose oral powder (Miralax) 17 g PO DAILY PRN Constipation 10/26/20 [History Last Taken Unknown] psyllium husk 0.4 gram capsule (Metamucil) 0.4 g PO DAILY PRN Constipation 10/26/20 [History Last Taken Unknown] cyclobenzaprine 10 mg tablet 5 mg PO TID PRN PRN muscle spasm 11/05/20 [History Last Taken Unknown] lisinopril 10 mg tablet 40 mg PO DAILY bp 08/31/22 [History Last Taken 09/13/22] aspirin 81 mg tablet,delayed release 81 mg PO DAILY heart health 09/14/22 [History Last Taken 09/13/22] nystatin 100,000 unit/mL oral suspension 500,000 unit (5 mL) PO 4X/DAY 7 days #140 mL 09/15/22 [Rx Last Taken Unknown] prednisone 20 mg tablet 40 mg (2 x 20 mg) PO DAILY 5 days #10 tabs 09/15/22 [Rx Last Taken Unknown] omeprazole 20 mg capsule,delayed release 20 mg PO DAILY 05/11/23 [History Last Taken Unknown] Allergy/AdvReac Type Severity Reaction Status Date / Time amoxicillin AdvReac Severe Diarrhea Verified 05/11/23 18:49 sulfamethoxazole AdvReac Severe Anaphylaxis Verified 05/11/23 19:51 [From Bactrim] trimethoprim [From Bactrim] AdvReac Swelling Verified 05/11/23 18:49 Family History Brother Alcoholism Asthma Myocardial infarction, Onset Age: 52 Seizures Skin cancer Sister CVA (cerebral vascular accident) Asthma Grandfather Asthma Father Myocardial infarction, Onset Age: 46 Had at age 46 & 62 Mother Myocardial infarction, Onset Age: 82 Surgical History History of amputation of finger History of cataract surgery History of eye surgery History of right hip replacement History of total left hip replacement Social History Smoking Status: Former smoker Tobacco: How many years used: 30 how long ago did patient quit smokin years ago second hand exposure: No alcohol intake: current alcohol intake frequency: holidays/special occasions only Alcohol type: wine substance use type: does not use amy/islam: None seatbelt use: always ROS ROS ED Constitutional Constitutional ED: Denies chills or fever(s) Eyes Eyes: Denies change in vision ENT ENT ED: Denies rhinorrhea or sore throat Cardiovascular Cardiovascular: Denies chest pain or palpitations Respiratory/Chest Respiratory/Chest: Denies cough or dyspnea Gastrointestinal Gastrointestinal: Reports nausea; Denies abdominal pain or constipation Genitourinary Genitourinary ED: Denies dysuria or hematuria Neurologic Neurologic: Reports headache(s) EXAM Physical Exam Const Vital Signs: 05/11/23 18:49 05/11/23 20:51 Temperature 97.8 F Temperature Source Temporal Pulse Rate 76 75 Respiratory Rate 16 16 Blood Pressure 152/115 H 168/64 H Blood Pressure Mean 127 98 Pulse Ox 100 97 Oxygen Delivery Method Room Air Room Air Positive well nourished General Appearance ED: NAD; Negative for pallor HEENT Reports normocephalic and moist mucous membranes atraumatic Eyes PERRL and EOMs intact bilaterally Resp normal respiratory effort Cardio regular rate and regular rhythm Extremity normal to inspection Neuro oriented x3 and CN's II-XII intact bilaterally Neuro Narrative: No focal neurologic deficits Sensorium / Orientation: awake and alert Motor Exam: strength 5/5 throughout Psych mental status grossly normal Skin General Skin Exam: Negative for jaundice or pallor MDM MDM MDM Narrative Medical decision making narrative: Patient presenting with headache. She does have a history of occipital neuralgia but never in this distribution has some anterior portion of her head. She does not have a history of migraine either. Patient does have history of melanoma but did have an MRI just a couple days ago which was negative. Likely to be metastasis. She has no focal neurologic deficits or lateralizing events. Was medicated with Compazine, Benadryl, Toradol as her CT brain was negative. She is feeling somewhat improved and wants to go home at this point. I have her follow-up with Dr. Palma. Return precautions were discussed. Impression: 1. Headache Radiography Diagnostic Testing: Clinical Impression(s) from Imaging Studies Brain CT 05/11/23 19:06 IMPRESSION: Chronic involutional changes of the brain. Electronically Signed: Levy Tristan MD at 19:51 EDT , Discharge Plan Triage Chief Complaint: Headache ED Provider: Neal Moreno Dx/Rx/DC Orders Instructions: ED Headache Unspecified Prescriptions: No Action pantoprazole 40 mg tablet,delayed release (DR/EC) 40 mg PO DAILY atorvastatin 40 mg tablet 40 mg PO DAILY psyllium husk [Metamucil] 0.4 gram capsule 0.4 g PO DAILY PRN (Reason: Constipation) polyethylene glycol 3350 [Miralax] 17 gram/dose powder 17 g PO DAILY PRN (Reason: Constipation) melatonin 5 mg capsule 5 mg PO QHS PRN (Reason: Sleep) cyclobenzaprine 10 mg tablet 5 mg PO TID PRN PRN (Reason: muscle spasm) lisinopril 10 mg tablet 40 mg PO DAILY metoprolol succinate 50 MG tablet 50 mg PO DAILY Qty: 0 0RF Rx Instructions: Hold if heart rate less than 60/min aspirin 81 MG tablet,delayed release (DR/EC) 81 mg PO DAILY prednisone 20 mg tablet 40 mg PO DAILY 5 Days Qty: 10 0RF Hold Instructions: not taking nystatin 100,000 unit/mL Suspension 500,000 unit PO 4X/DAY 7 Days Qty: 140 0RF Hold Instructions: not taking omeprazole 20 mg capsule,delayed release(DR/EC) 20 mg PO DAILY Primary Care Provider: Marvin Malloy Referrals: Marvin Malloy MD [Primary Care Provider] - Disposition Disposition: Home, Self Care
== END 2023-05-11 22:44 | disposition home or self-care (01) ==
PROVIDERS: Emergency Provider Student in an Organized Health Care Education/Training Program; PCP Family Medicine; Visit Provider Student in an Organized Health Care Education/Training Program
DX: R51.9 Headache, unspecified (principal); C43.9 Malignant melanoma of skin, unspecified; I10 Essential (primary) hypertension; Z87.891 Personal history of nicotine dependence; E78.5 Hyperlipidemia, unspecified; Z86.73 Personal history of transient ischemic attack (TIA), and cerebral infarction without residual deficits; K21.9 Gastro-esophageal reflux disease without esophagitis; Z79.82 Long term (current) use of aspirin; Z79.899 Other long term (current) drug therapy; Z96.643 Presence of artificial hip joint, bilateral
CPT/HCPCS: 70450; 96361; 96374; 96375; 99283; J7030; A4216

== ENCOUNTER 2023-06-02 12:10 | Emergency (ER) | payer MEDICARE, OTHER, SELFPAY ==
[2023-06-02 12:10] VITALS: BP 175/66; PULSE 66; RESP 18; TEMP 35.9; O2SAT 98; BMI 28.5
--- NOTE | 2023-06-02 12:25 | EKG12_ITS ---
Test Reason : Blood Pressure : / mmHG Vent. Rate : 066 BPM Atrial Rate : 066 BPM P-R Int : 164 ms QRS Dur : 080 ms QT Int : 396 ms P-R-T Axes : 042 028 056 degrees QTc Int : 415 ms Normal sinus rhythm Normal ECG Confirmed by AMADA HECTOR, JERROD ([id number]), restaurant expeditor CLAYTON QUINONES ([id number]) on 06/05/2023 7:41:46 AM Referred By: Confirmed By:JERROD YBARRA MD
--- NOTE | 2023-06-02 12:26 | EX.ED.DYSGE1 ---
HPI History of Present Illness Chief Complaint: Weakness Narrative Narrative: Patient presents with generalized weakness, lightheadedness and now she has some generalized paresthesias. She is on chemotherapy she has had intermittent diarrhea and she had nausea but that has resolved. Her last chemo was 3 weeks ago. She has no abdominal pain. No fevers or chills. [facility] Medical History COVID-19 Essential hypertension Former smoker GERD (gastroesophageal reflux disease) History of cerebellar stroke History of hypertension Hyperlipidemia Myeloma Seizure Seizure Seizures Stroke/cerebrovascular accident Home Medications metoprolol succinate 50 mg tablet,extended release 24 hr 50 mg PO DAILY heart rate ##0 08/15/20 [Rx Last Taken 09/13/22] atorvastatin 40 mg tablet 40 mg PO DAILY cholesterol 09/24/20 [History Last Taken 09/13/22] pantoprazole 40 mg tablet,delayed release 40 mg PO DAILY gerd 09/24/20 [History Last Taken 09/13/22] melatonin 5 mg capsule 5 mg PO QHS PRN Sleep 10/26/20 [History Last Taken 09/12/22] polyethylene glycol 3350 17 gram/dose oral powder (Miralax) 17 g PO DAILY PRN Constipation 10/26/20 [History Last Taken Unknown] psyllium husk 0.4 gram capsule (Metamucil) 0.4 g PO DAILY PRN Constipation 10/26/20 [History Last Taken Unknown] cyclobenzaprine 10 mg tablet 5 mg PO TID PRN PRN muscle spasm 11/05/20 [History Last Taken Unknown] lisinopril 10 mg tablet 40 mg PO DAILY bp 08/31/22 [History Last Taken 09/13/22] aspirin 81 mg tablet,delayed release 81 mg PO DAILY heart health 09/14/22 [History Last Taken 09/13/22] nystatin 100,000 unit/mL oral suspension 500,000 unit (5 mL) PO 4X/DAY 7 days #140 mL 09/15/22 [Rx Last Taken Unknown] prednisone 20 mg tablet 40 mg (2 x 20 mg) PO DAILY 5 days #10 tabs 09/15/22 [Rx Last Taken Unknown] omeprazole 20 mg capsule,delayed release 20 mg PO DAILY 05/11/23 [History Last Taken Unknown] prednisone 10 mg tablet See Rx Instructions PO .COMPLEX #27 tabs 05/15/23 [Rx Last Taken Unknown] potassium chloride 40 mEq/15 mL oral liquid 40 meq (15 mL) PO DAILY 4 days #60 mL 06/02/23 [Rx Last Taken Unknown] Allergy/AdvReac Type Severity Reaction Status Date / Time amoxicillin AdvReac Severe Diarrhea Verified 05/11/23 18:49 sulfamethoxazole AdvReac Severe Anaphylaxis Verified 05/11/23 19:51 [From Bactrim] trimethoprim [From Bactrim] AdvReac Swelling Verified 05/11/23 18:49 Family History Brother Alcoholism Asthma Myocardial infarction, Onset Age: 52 Seizures Skin cancer Sister CVA (cerebral vascular accident) Asthma Grandfather Asthma Father Myocardial infarction, Onset Age: 46 Had at age 46 & 62 Mother Myocardial infarction, Onset Age: 82 Surgical History History of amputation of finger History of cataract surgery History of eye surgery History of right hip replacement History of total left hip replacement Social History Smoking Status: Former smoker Tobacco: How many years used: 30 how long ago did patient quit smokin years ago second hand exposure: No alcohol intake: current alcohol intake frequency: holidays/special occasions only Alcohol type: wine substance use type: does not use amy/gnosticism: None seatbelt use: always ROS ROS ED ROS Narrative Past medical history: Reviewed Medications: Reviewed Social history: Noncontributory Review of systems: All systems negative except as indicated General: No fever, weakness and illness and lightheadedness Eyes: No visual changes ENT: No upper airway congestion, normal voice Neck: No neck pain Cardiovascular: No chest pain Respiratory: No shortness of breath or cough Gastrointestinal: No abdominal pain. Nausea resolved. She still has intermittent diarrhea Genitourinary: No dysuria Musculoskeletal: Denies myalgias no difficulty with ambulation Skin: No rash Neurological: No memory loss, confusion or any focal weakness EXAM Physical Exam Narrative Exam Narrative: Physical exam General: Well nourished, Well developed, No Acute Distress Head: Normocephalic, Atraumatic Eyes: Conjunctiva not pale ENT: Dry mucous membranes Neck: Supple, Nontender, No lymphadenopathy Cardiovascular: Regular rate, Regular rhythm Respiratory: No distress, CTA bilaterally Abdomen: Soft, Nontender, Nondistended Back: Nontender, Normal Inspection. Negative for: CVA tenderness Extremities: Nontender, No edema Skin: Normal color, No rash Neurological: Alert, Normal Strength, Normal Sensation Const Vital Signs: 06/02/23 12:10 06/02/23 13:00 Temperature 96.7 F L Temperature Source Temporal Pulse Rate 66 Respiratory Rate 18 Respiratory Effort Normal Non-Labored Respiratory Pattern Normal Blood Pressure 175/66 H Blood Pressure Mean 102 Pulse Ox 98 Oxygen Delivery Method Room Air MDM MDM MDM Narrative Medical decision making narrative: Patient clinically is dehydrated, creatinine and BUN are unremarkable but she is a little hypokalemic which I will treat. Otherwise at this time there is no signs or symptoms of infection, patient appears well I will discharge her in stable condition. There is no indication for admission. I do not believe any imaging is needed at this time. I discussed with her and her who also given the history and they are okay with discharge Lab Data Labs: Laboratory Results - last 24 hr 06/02/23 10:17 WBC 7.7 RBC 4.53 Hgb 12.8 Hct 39.9 MCV 88.1 MCH 28.3 MCHC 32.1 RDW Std Deviation 44.1 H RDW Coeff of [place] 13.8 Plt Count 178 MPV 9.6 Immature Gran % (Auto) 0.600 Neut % (Auto) 88.8 H Lymph % (Auto) 7.6 L [place] % (Auto) 2.8 Eos % (Auto) 0.1 Baso % (Auto) 0.1 Absolute Neuts (auto) 6.9 Absolute Lymphs (auto) 0.59 L Nucleated RBC % 0 Sodium 137 Potassium 3.2 L Chloride 102 Carbon Dioxide 27.0 Anion Gap 8 BUN 14 Creatinine 0.94 Estim Creat Clear Calc 48.41 Est GFR (MDRD) Af Amer 75 Est GFR (MDRD) Non-Af 62 BUN/Creatinine Ratio 14.9 Glucose 145 H Calcium 8.4 L Total Bilirubin 0.60 AST 8 L ALT 31 Alkaline Phosphatase 96 Total Protein 6.4 Albumin 3.3 Globulin 3.1 Albumin/Globulin Ratio 1.1 Discharge Plan Triage Chief Complaint: Weakness ED Provider: Ismael Jama Dx/Rx/DC Orders Clinical Impression: Melanoma, Dehydration, Acute hypokalemia Instructions: ED Dehydration (Adult), ED Hypokalemia Prescriptions: New potassium chloride 40 mEq/15 mL liquid 40 meq PO DAILY 4 Days Qty: 60 0RF No Action pantoprazole 40 mg tablet,delayed release (DR/EC) 40 mg PO DAILY atorvastatin 40 mg tablet 40 mg PO DAILY psyllium husk [Metamucil] 0.4 gram capsule 0.4 g PO DAILY PRN (Reason: Constipation) polyethylene glycol 3350 [Miralax] 17 gram/dose powder 17 g PO DAILY PRN (Reason: Constipation) melatonin 5 mg capsule 5 mg PO QHS PRN (Reason: Sleep) cyclobenzaprine 10 mg tablet 5 mg PO TID PRN PRN (Reason: muscle spasm) lisinopril 10 mg tablet 40 mg PO DAILY metoprolol succinate 50 MG tablet 50 mg PO DAILY Qty: 0 0RF Rx Instructions: Hold if heart rate less than 60/min aspirin 81 MG tablet,delayed release (DR/EC) 81 mg PO DAILY prednisone 20 mg tablet 40 mg PO DAILY 5 Days Qty: 10 0RF Hold Instructions: not taking nystatin 100,000 unit/mL Suspension 500,000 unit PO 4X/DAY 7 Days Qty: 140 0RF Hold Instructions: not taking omeprazole 20 mg capsule,delayed release(DR/EC) 20 mg PO DAILY prednisone 10 mg tablet See Rx Instructions PO .COMPLEX Qty: 27 0RF Rx Instructions: 6 tabs orally x 2 days; 5 tabs x 1 day; 4 tabs x 1 day; 3 tabs x 1 day; 2 tabs x 1 day; 1 tab x 1 day orally; Primary Care Provider: Marvin Malloy Referrals: Marvin Malloy MD [Primary Care Provider] - 3-5 Days Disposition Disposition: Home, Self Care
[2023-06-02] MEDS: 0.9% Normal Saline (1000mL) 1,000 ML 1000 ML IV (12:42)
[2023-06-02 13:20] LABS: Absolute Lymphocyte Count 0.59 X10^3/uL (0.83-4.51); Absolute Neutrophil Count 6.9 X10^3/uL (2.0-7.7); Basophil# 0.01 X10^3/uL; Basophil% 0.1 % (0-1); Eosinophil# 0.01 X10^3/uL; Eosinophils% 0.1 % (0-5); Hematocrit 39.9 % (37-47); Hemoglobin 12.8 g/dL (12.0-15.0); Lymphocyte # 0.59 X10^3/ul (0.83-4.51); Lymphocyte % 7.6 % (19-41); Mean Corp Hgb Conc 32.1 g/dL (32-36); Mean Corpuscular Hgb 28.3 pg (27.0-32.0); Mean Corpuscular Volume 88.1 fL (81-99); Mean Platelet Vol. 9.6 fl (6.2-12.0); Monocyte# 0.22 X10^3/uL; Monocyte% 2.8 % (0-10); NRBC Flagged by Analyzer 0 % (0-5); Neutrophil # 6.86 X10^3/uL (2.7-7.7); Neutrophil % 88.8 % (47-70); POSITIVE DIFFERENTIAL YES; Platelet Count 178 K/mm3 (150-450); RBC Distribution Width CV 13.8 % (11.6-14.6); RBC Distribution Width SD 44.1 fl (35.1-43.9); Red Blood Count 4.53 M/mm3 (4.2-5.4); White Blood Count 7.7 K/mm3 (4.4-11.0)
[2023-06-02 13:27] LABS: ALB/GLOB Ratio 1.1 RATIO (0.9-2.4); AST(SGOT) 8 U/L (15-37); Alanine Aminotransfer ALT/SGPT 31 U/L (13-56); Albumin, Serum 3.3 g/dL (3.2-5.0); Alkaline Phosphatase 96 U/L (45-117); Anion Gap 8 (5-15); BUN 14 mg/dL (7-18); BUN/Creat Ratio 14.9 RATIO (10-20); Calcium,Total 8.4 mg/dL (8.5-10.1); Chloride 102 mmol/L (98-107); Creatinine, Serum 0.94 mg/dL (0.55-1.02); Differential Indicated SCAN CRITERIA MET; EST Glomerular Filtration Rate 62 mL/min (>60); Est Glom Filt Rate - Afr Amer 75 mL/min (>60); Estimated Creatinine Clearance 48.41 ml/min; Globulin 3.1 g/dL (2.2-4.2); Glucose 145 mg/dL (74-106); Potassium 3.2 mmol/L (3.5-5.1); Protein, Total 6.4 g/dL (6.4-8.2); Sodium Level 137 mmol/L (136-145)
[2023-06-02] MEDS: Potassium Chloride Oral Tablet 20 MEQ 40 MEQ PO (13:46)
[2023-06-02 13:50] LABS: Differential Comment SCANNED
== END 2023-06-02 14:04 | disposition home or self-care (01) ==
PROVIDERS: Emergency Provider Emergency Medicine; PCP Family Medicine; Visit Provider Emergency Medicine
DX: E86.0 Dehydration (principal); C43.9 Malignant melanoma of skin, unspecified; Z87.891 Personal history of nicotine dependence; I10 Essential (primary) hypertension; E87.6 Hypokalemia; E78.5 Hyperlipidemia, unspecified; Z92.21 Personal history of antineoplastic chemotherapy; Z86.73 Personal history of transient ischemic attack (TIA), and cerebral infarction without residual deficits; K21.9 Gastro-esophageal reflux disease without esophagitis; Z79.899 Other long term (current) drug therapy; Z79.82 Long term (current) use of aspirin; Z96.643 Presence of artificial hip joint, bilateral
CPT/HCPCS: 80053; 85025; 93005; 96360; 99283

== ENCOUNTER → 2023-06-28 | Outpatient (CLI) | payer MEDICARE, OTHER, SELFPAY ==
[2023-06-28] MEDS: Pentamidine Isethionate 300 MG, Water For Injection,Sterile 6 ML INHALATION (09:27)
== END | disposition home or self-care (01) ==
PROVIDERS: PCP Family Medicine; Referring Provider Internal Medicine Hematology & Oncology; Visit Provider Internal Medicine Hematology & Oncology
DX: C43.9 Malignant melanoma of skin, unspecified (principal); Z79.52 Long term (current) use of systemic steroids
CPT/HCPCS: 94642

== ENCOUNTER 2023-07-05 01:04 | Emergency (ER) | payer MEDICARE, OTHER, SELFPAY ==
[2023-07-05 01:07] VITALS: BP 197/102; PULSE 137; RESP 28; TEMP 37.2; O2SAT 96; BMI 26.6
--- NOTE | 2023-07-05 01:32 | EDS_ITS ---
HPI HPI - GI History of Present Illness Chief Complaint: GI Bleed Informant: patient and spouse/S.O. Narrative Narrative: 77-year-old female with a small amount of blood tonight presenting at 1:00 AM just after it occurred. states this occurred hours after her first dose of anticoagulants, Lovenox injection which was given because she was diagnosed with DVT in her left lower extremity earlier today by ultrasound as an outpatie nt. She has had diarrhea between approximately 10 and 15 bouts per day for the last month or more, since changing to new chemotherapeutic agents for her cancer. At some point after the onset of the diarrhea she was admitted to [facility] where she was diagnosed with colitis after having a colonoscopy. She has had no bleeding in her diarrhea until the small amount that they saw tonight. The spouse states that the patient thought she saw a small amount of blood in it, and then the saw a small amount of blood on her nightgown later which is what prompted him to bring her in because they told us to watch for blood. She has had weakness for the last month or so. She denies any syncope or presyncopal symptoms tonight, she has some constant mild abdominal pressure but no other abdominal pain, no nausea or vomiting, and she denies any other new symptoms tonight. [facility] Medical History (Updated 07/05/23 @ 02:[address] Deandre Daniels MD) COVID-19 Essential hypertension Former smoker GERD (gastroesophageal reflux disease) History of cerebellar stroke History of hypertension Hyperlipidemia Mild cognitive impairment Myeloma Polyneuropathy Seizure Stroke/cerebrovascular accident Home Medications metoprolol succinate 50 mg tablet,extended release 24 hr 50 mg PO DAILY heart rate ##0 08/15/20 [Rx Last Taken 09/13/22] atorvastatin 40 mg tablet 40 mg PO DAILY cholesterol 09/24/20 [History Last Taken 09/13/22] pantoprazole 40 mg tablet,delayed release 40 mg PO DAILY gerd 09/24/20 [History Last Taken 09/13/22] melatonin 5 mg capsule 5 mg PO QHS PRN Sleep 10/26/20 [History Last Taken 09/12/22] polyethylene glycol 3350 17 gram/dose oral powder (Miralax) 17 g PO DAILY PRN Constipation 10/26/20 [History Last Taken Unknown] psyllium husk 0.4 gram capsule (Metamucil) 0.4 g PO DAILY PRN Constipation 10/26/20 [History Last Taken Unknown] cyclobenzaprine 10 mg tablet 5 mg PO TID PRN PRN muscle spasm 11/05/20 [History Last Taken Unknown] lisinopril 10 mg tablet 40 mg PO DAILY bp 08/31/22 [History Last Taken 09/13/22] aspirin 81 mg tablet,delayed release 81 mg PO DAILY heart health 09/14/22 [History Last Taken 09/13/22] nystatin 100,000 unit/mL oral suspension 500,000 unit (5 mL) PO 4X/DAY 7 days #140 mL 09/15/22 [Rx Last Taken Unknown] prednisone 20 mg tablet 40 mg (2 x 20 mg) PO DAILY 5 days #10 tabs 09/15/22 [Rx Last Taken Unknown] omeprazole 20 mg capsule,delayed release 20 mg PO DAILY 05/11/23 [History Last Taken Unknown] prednisone 10 mg tablet See Rx Instructions PO .COMPLEX #27 tabs 05/15/23 [Rx Last Taken Unknown] potassium chloride 40 mEq/15 mL oral liquid 40 meq (15 mL) PO DAILY 4 days #60 mL 06/02/23 [Rx Last Taken Unknown] Allergy/AdvReac Type Severity Reaction Status Date / Time amoxicillin AdvReac Severe Diarrhea Verified 07/05/23 01:14 sulfamethoxazole AdvReac Severe Anaphylaxis Verified 07/05/23 01:14 [From Bactrim] trimethoprim [From Bactrim] AdvReac Swelling Verified 07/05/23 01:14 Family History Brother Alcoholism Asthma Myocardial infarction, Onset Age: 52 Seizures Skin cancer Sister CVA (cerebral vascular accident) Asthma Grandfather Asthma Father Myocardial infarction, Onset Age: 46 Had at age 46 & 62 Mother Myocardial infarction, Onset Age: 82 Surgical History History of amputation of finger History of cataract surgery History of eye surgery History of right hip replacement History of total left hip replacement Social History Smoking Status: Former smoker Tobacco: How many years used: 30 how long ago did patient quit smokin years ago second hand exposure: No alcohol intake: current alcohol intake frequency: holidays/special occasions only Alcohol type: wine substance use type: does not use amy/lutheran: None seatbelt use: always ROS ROS ED Constitutional Constitutional ED: Reports fatigue and malaise; Denies chills or fever(s) Eyes Eyes: Denies change in vision or diplopia ENT ENT ED: Denies rhinorrhea or sore throat Cardiovascular Cardiovascular: Denies chest pain or palpitations Respiratory/Chest Respiratory/Chest: Denies cough or dyspnea Gastrointestinal Gastrointestinal: Reports diarrhea and hematochezia; Denies abdominal pain, melena, nausea or vomiting Genitourinary Genitourinary ED: Denies dysuria or hematuria Musculoskeletal Musculoskeletal: Denies back pain or neck pain Integumentary Denies abscess or rash Neurologic Neurologic: Denies headache(s), paresthesias or weakness Psychiatric Psychiatric: Denies anxiety or suicidal thoughts EXAM Physical Exam Const Vital Signs: 07/05/23 01:07 07/05/23 01:45 Temperature 98.9 F Temperature Source Temporal Pulse Rate 137 H 123 H Respiratory Rate 28 H 13 Blood Pressure 197/102 H 165/86 H Blood Pressure Mean 133 112 Pulse Ox 96 96 Oxygen Delivery Method Room Air Room Air Positive well nourished and well developed General Appearance ED: well developed and NAD HEENT Reports moist mucous membranes normocephalic and atraumatic Eyes PERRL and EOMs intact bilaterally Neck full ROM and supple Resp normal respiratory effort and clear to auscultation bilaterally Cardio regular rate, regular rhythm and no murmurs Rate: tachycardic GI non-tender and non-distended GI Narrative: On rectal, there is a small amount of red particulate matter, digital rectal exam yields more of the same as well as some light brown scant stool remnants. No melanotic stool or active bleeding/pooling. No tenderness. No external hemorrhoids. No fissure or other wound. Auscultation: normoactive bowel sounds Palpation: soft Back/Spine no CVA tenderness General Back: other FROM Extremity General Extremety ED: Yes edema; Negative for pulses abnormal or tenderness General Extremity: edema left lower extremity mild; Negative for pulses abnormal Neuro oriented x3, CN's II-XII intact bilaterally and no sensory deficits noted Sensorium / Orientation: awake and alert Motor Exam: general weakness Psych mental status grossly normal and thought process normal Skin no rashes or lesions noted and no wounds MDM MDM MDM Narrative Medical decision making narrative: states that this past day [facility] that did a sample of diarrhea and they are running tests on that, so I did not seek to collect diarrhea from the patient tonight. I did send a Hemoccult to confirm that these red specks were blood and not food particles, and it did return Hemoccult positive. With IV fluids her pulse did improve and her blood pressure on recheck without treating it specifically is improved at 165/86, which in context of certainly better than being hypotensive. She is not anemic, and she does not appear to have a significantly elevated BUN to suggest an upper GI source of the bleeding, she has borderline prerenal/dehydrated and was given a liter of IV fluids. She just had a colonoscopy at [facility] but I do not have access to those results right now. At this time her bleeding is [id number], and I do not think she needs to be admitted for it. I spoke with Dr. Celeste, on-call for [facility] hematology/oncology, and at this time agreeing that she does not need to be admitted for this minor bleeding, he would recommend continuing the Lovenox, watching for clinically or hemodynamically significant bleeding for which she should return to the ER as I discussed with her and the , and following up as an outpatient. We discussed the possibility of admitting her for an IVC f ilter, he does not recommend that at this time given that the bleeding has been relatively mild. It should be noted that given her colitis, that could cause minor bleeding on anticoagulation as well. Patient is comfortable this overall plan, heart rate is down into the 110-115 range and the IV fluids are not yet finished, I told her about her potassium being 3.1, she states I already taken of potassium as it is, no more tonight please. History & Record Review Additional record(s) reviewed:: Prior labs Lab Data Attestation: I reviewed the patient's lab results. Labs: Laboratory Results - last 24 hr 07/05/23 01:13 WBC 5.7 RBC 4.92 Hgb 14.0 Hct 43.0 MCV 87.4 MCH 28.5 MCHC 32.6 RDW Std Deviation 46.9 H RDW Coeff of Lynn 14.8 H Plt Count 57 L MPV 10.1 Immature Gran % (Auto) 1.600 H Neut % (Auto) 66.7 Lymph % (Auto) 26.3 Howell % (Auto) 4.7 Eos % (Auto) 0.2 Baso % (Auto) 0.5 Absolute Neuts (auto) 3.8 Absolute Lymphs (auto) 1.50 Nucleated RBC % 0 Sodium 136 Potassium 3.1 L Chloride 100 Carbon Dioxide 31.0 Anion Gap 5 BUN 16 Creatinine 0.75 Estim Creat Clear Calc 45.50 Est GFR (MDRD) Af Amer 97 Est GFR (MDRD) Non-Af 80 BUN/Creatinine Ratio 21.3 H Glucose 97 Calcium 8.3 L Management Discussion w/another healthcare provider: [facility] (Hematology oncology Dr. Celeste) Discharge Plan Triage Chief Complaint: GI Bleed ED Provider: Deandre Daniels Dx/Rx/DC Orders Clinical Impression: Hypokalemia due to excessive gastrointestinal loss of potassium, Anticoagulated, Left leg DVT, Mild dehydration, Rectal bleeding, Acute diarrhea, Myeloma Instructions: ED Lower GI Bleeding (Stable) Prescriptions: No Action pantoprazole 40 mg tablet,delayed release (DR/EC) 40 mg PO DAILY atorvastatin 40 mg tablet 40 mg PO DAILY psyllium husk [Metamucil] 0.4 gram capsule 0.4 g PO DAILY PRN (Reason: Constipation) polyethylene glycol 3350 [Miralax] 17 gram/dose powder 17 g PO DAILY PRN (Reason: Constipation) melatonin 5 mg capsule 5 mg PO QHS PRN (Reason: Sleep) cyclobenzaprine 10 mg tablet 5 mg PO TID PRN PRN (Reason: muscle spasm) lisinopril 10 mg tablet 40 mg PO DAILY metoprolol succinate 50 MG tablet 50 mg PO DAILY Qty: 0 0RF Rx Instructions: Hold if heart rate less than 60/min aspirin 81 MG tablet,delayed release (DR/EC) 81 mg PO DAILY prednisone 20 mg tablet 40 mg PO DAILY 5 Days Qty: 10 0RF Hold Instructions: not taking nystatin 100,000 unit/mL Suspension 500,000 unit PO 4X/DAY 7 Days Qty: 140 0RF Hold Instructions: not taking omeprazole 20 mg capsule,delayed release(DR/EC) 20 mg PO DAILY potassium chloride 40 mEq/15 mL liquid 40 meq PO DAILY 4 Days Qty: 60 0RF prednisone 10 mg tablet See Rx Instructions PO .COMPLEX Qty: 27 0RF Rx Instructions: 6 tabs orally x 2 days; 5 tabs x 1 day; 4 tabs x 1 day; 3 tabs x 1 day; 2 tabs x 1 day; 1 tab x 1 day orally; Primary Care Provider: Marvin Malloy Referrals: Ismael Palma DO [Med Staff - Active Staff] - As soon as possible Marvin Malloy MD [Primary Care Provider] - Activity Restrictions/Additional Instructions: Continue your Lovenox injections as prescribed, if you are bleeding heavily from your rectum, return to the ER for reevaluation. Otherwise follow-up with Dr. Palma, start by calling over the phone to discuss follow-up instructions in the morning. Disposition Disposition: Home, Self Care
[2023-07-05] MEDS: 0.9% Normal Saline (1000mL) 1,000 ML 999 ML IV (01:41)
[2023-07-05 01:42] LABS: Absolute Neutrophil Count 3.8 X10^3/uL (2.0-7.7); Basophil# 0.03 X10^3/uL; Basophil% 0.5 % (0-1); Eosinophil# 0.01 X10^3/uL; Eosinophils% 0.2 % (0-5); Lymphocyte % 26.3 % (19-41); Mean Corp Hgb Conc 32.6 g/dL (32-36); Mean Corpuscular Hgb 28.5 pg (27.0-32.0); Mean Corpuscular Volume 87.4 fL (81-99); Mean Platelet Vol. 10.1 fl (6.2-12.0); Monocyte# 0.27 X10^3/uL; Monocyte% 4.7 % (0-10); NRBC Flagged by Analyzer 0 % (0-5); Neutrophil % 66.7 % (47-70); POSITIVE COUNT YES; Platelet Count 57 K/mm3 (150-450); RBC Distribution Width CV 14.8 % (11.6-14.6); RBC Distribution Width SD 46.9 fl (35.1-43.9); Red Blood Count 4.92 M/mm3 (4.2-5.4); White Blood Count 5.7 K/mm3 (4.4-11.0)
[2023-07-05 01:44] LABS: Differential Indicated SCAN CRITERIA MET
[2023-07-05 01:45] VITALS: BP 165/86; PULSE 123; RESP 13; O2SAT 96
[2023-07-05 01:56] LABS: Anion Gap 5 (5-15); BUN 16 mg/dL (7-18); BUN/Creat Ratio 21.3 RATIO (10-20); Calcium,Total 8.3 mg/dL (8.5-10.1); Chloride 100 mmol/L (98-107); Creatinine, Serum 0.75 mg/dL (0.55-1.02); EST Glomerular Filtration Rate 80 mL/min (>60); Est Glom Filt Rate - Afr Amer 97 mL/min (>60); Glucose 97 mg/dL (74-106); Potassium 3.1 mmol/L (3.5-5.1); Sodium Level 136 mmol/L (136-145)
[2023-07-05 02:15] LABS: Differential Comment SCANNED; Platelet Estimate MOD DEC (ADEQ)
[2023-07-05 02:51] VITALS: BP 168/64; PULSE 110; RESP 15; O2SAT 96
== END 2023-07-05 02:53 | disposition home or self-care (01) ==
PROVIDERS: Emergency Provider Emergency Medicine; PCP Family Medicine; Visit Provider Emergency Medicine
DX: K62.5 Hemorrhage of anus and rectum (principal); C90.00 Multiple myeloma not having achieved remission; I82.402 Acute embolism and thrombosis of unspecified deep veins of left lower extremity; E86.0 Dehydration; R19.7 Diarrhea, unspecified; Z87.891 Personal history of nicotine dependence; I10 Essential (primary) hypertension; E87.6 Hypokalemia; E78.5 Hyperlipidemia, unspecified; Z79.01 Long term (current) use of anticoagulants; Z86.73 Personal history of transient ischemic attack (TIA), and cerebral infarction without residual deficits; Z79.899 Other long term (current) drug therapy; K21.9 Gastro-esophageal reflux disease without esophagitis; Z79.82 Long term (current) use of aspirin; Z96.643 Presence of artificial hip joint, bilateral
CPT/HCPCS: 80048; 82274; 85025; J7030; A4216

== ENCOUNTER 2023-07-05 06:24 | Inpatient (IN) | payer MEDICARE, OTHER, SELFPAY ==
[2023-07-05] VITALS (14 sets, daily range): BP systolic 119–187; BP diastolic 46–71; PULSE 85–160; RESP 14–25; TEMP 36.2–37.1; O2SAT 87–100; BMI 27.2; BMI 28.0
--- NOTE | 2023-07-05 06:29 | CT_ITS ---
We are attempting to reach an attending provider to discuss findings. An addendum with communication details will be sent when the communication is complete. STUDY: CTA CHEST REASON FOR EXAM: Female, 77 years old. syncope, dvt RADIATION DOSAGE (If Supplied By Facility): CTDIvol = ( 10.59 ) mGy, DLP = ( 365.21 ) mGycm TECHNIQUE: The examination was performed with the intravenous administration of IV 100mL Isovue-370. Post-processing of the angiographic images was performed, with multiplanar reformation and 3D reconstruction. Individualized dose optimization techniques were used for this CT. COMPARISON: CTA of the chest dated August 22, 2020. Chest x-ray dated July 19, 2022 FINDINGS: Occlusive thrombus is present in the secondary peripheral branches of the left pulmonary artery supplying the superior segment of the left lower lobe. Nonocclusive clot is present in the distal peripheral branches of the right pulmonary artery supplying the right lower lobe. There is also a moderate amount of thrombus in the mid to distal half of the left main pulmonary artery which extends into the peripheral branches. No saddle embolus is present. The main pulmonary trunk and the right main pulmonary artery are normal. Diffuse groundglass edema is present throughout both lungs. No visualized pulmonary infarction or pneumonic consolidation. No pleural effusions are present. No demonstrated cardiac chamber enlargement or pericardial effusion. Normal thoracic aorta and visualized great vessels. There is no demonstrated aortic dissection. Normal heart and pericardium. There are no demonstrated calcifications of the coronary arteries. Normal mediastinum. Normal hilar regions. Normal visualized trachea and bronchi. The lungs are well expanded. Normal pleura. Normal chest wall structures. There are degenerative changes of thoracic spine. Normal visualized upper abdomen. CT/CTA Chest W/WO Contrast IMPRESSION: Bilateral pulmonary artery emboli 1. Occlusive thrombus is present in the secondary peripheral branches of the left pulmonary artery supplying the superior segment of the left lower lobe. Nonocclusive clot is present in the distal peripheral branches of the right pulmonary artery supplying the right lower lobe. There is also a moderate amount of thrombus in the mid to distal half of the left main pulmonary artery which extends into the peripheral branches. No saddle embolus is present. The main pulmonary trunk and the right main pulmonary artery are normal. Diffuse groundglass edema is present throughout both lungs. 2. No visualized pulmonary infarction or pneumonic consolidation. No pleural effusions are present. Electronically Signed: Lance Graves MD at 8:23 EST ,
--- NOTE | 2023-07-05 06:32 | EKG12_ITS ---
Test Reason : SYNCOPE Blood Pressure : / mmHG Vent. Rate : 122 BPM Atrial Rate : 122 BPM P-R Int : 150 ms QRS Dur : 080 ms QT Int : 302 ms P-R-T Axes : 047 070 039 degrees QTc Int : 430 ms Sinus tachycardia with Premature atrial complexes Nonspecific ST and T wave abnormality Abnormal ECG Confirmed by LISBETH HECTOR, TRELL ([id number]), manager editorial CLAYTON QUINONES ([id number]) on 07/09/2023 8:07:00 AM Referred By: Confirmed By:JERILYN BOB MD
--- NOTE | 2023-07-05 06:41 | EDS_ITS ---
HPI History of Present Illness Chief Complaint: Syncope Informant: patient, spouse/S.O. and EMS Narrative Narrative: 77-year-old female was just discharged from the ER after having a small amount of rectal bleeding after her first dose of Lovenox for DVTs in her left lower extremity, and she has been having diarrhea and excessive weakness for the last month or more, being on new chemotherapeutic agents for myeloma. She was hydrated, she was doing better, she went home and went to bed. She had to get up and have more diarrhea which is again been common for the last month, this time she was unable to get off of the toilet on her own even with the bars to p ush up on next to the toilet, her tried to help her, and in doing so they were successful but then she passed out, he helped lower her to the floor there was no fall or injury. She was not waking up in an expedited period of time and so he called EMS because he did not know what else to do. He states that she was still breathing. EMS arrived and said that she was slow to come around but was improving, and they brought her here back to the ER, where she is awake, and does not remember if she had any prodromal symptoms or not prior to this. She denies having any pain at this time or headache or dyspnea, just feels weak and tired. states he saw no further blood in her diarrhea. [facility] Medical History COVID-19 Essential hypertension Former smoker GERD (gastroesophageal reflux disease) History of cerebellar stroke History of hypertension Hyperlipidemia Mild cognitive impairment Myeloma Polyneuropathy Seizure Stroke/cerebrovascular accident Home Medications metoprolol succinate 50 mg tablet,extended release 24 hr 50 mg PO DAILY heart rate ##0 08/15/20 [Rx Last Taken 09/13/22] atorvastatin 40 mg tablet 40 mg PO DAILY cholesterol 09/24/20 [History Last Taken 09/13/22] melatonin 5 mg capsule 5 mg PO QHS PRN Sleep 10/26/20 [History Last Taken 09/12/22] cyclobenzaprine 10 mg tablet 5 mg PO TID PRN PRN muscle spasm 11/05/20 [History Last Taken Unknown] lisinopril 10 mg tablet 40 mg PO DAILY bp 08/31/22 [History Last Taken 09/13/22] aspirin 81 mg tablet,delayed release 81 mg PO DAILY heart health 09/14/22 [History Last Taken 09/13/22] omeprazole 20 mg capsule,delayed release 20 mg PO DAILY 05/11/23 [History Last Taken Unknown] enoxaparin 80 mg/0.8 mL subcutaneous syringe 75 mg subcut Q12H 07/05/23 [History Last Taken Unknown] potassium chloride 20 mEq tablet,extended release(part/cryst) meq PO BID 07/05/23 [History Last Taken Unknown] prednisone 20 mg tablet 60 mg PO BID 07/05/23 [History Last Taken Unknown] Allergy/AdvReac Type Severity Reaction Status Date / Time amoxicillin AdvReac Severe Diarrhea Verified 07/05/23 06:28 sulfamethoxazole AdvReac Severe Anaphylaxis Verified 07/05/23 06:28 [From Bactrim] trimethoprim [From Bactrim] AdvReac Swelling Verified 07/05/23 06:28 Family History Brother Alcoholism Asthma Myocardial infarction, Onset Age: 52 Seizures Skin cancer Sister CVA (cerebral vascular accident) Asthma Grandfather Asthma Father Myocardial infarction, Onset Age: 46 Had at age 46 & 62 Mother Myocardial infarction, Onset Age: 82 Surgical History History of amputation of finger History of cataract surgery History of eye surgery History of right hip replacement History of total left hip replacement Social History Smoking Status: Former smoker Tobacco: How many years used: 30 how long ago did patient quit smokin years ago second hand exposure: No alcohol intake: current alcohol intake frequency: holidays/special occasions only Alcohol type: wine substance use type: does not use amy/congregation: None seatbelt use: always ROS ROS ED Constitutional Constitutional ED: Reports fatigue and weakness; Denies chills or fever(s) Eyes Eyes: Denies change in vision or diplopia ENT ENT ED: Denies rhinorrhea or sore throat Cardiovascular Cardiovascular: Reports dyspnea; Denies chest pain or palpitations Respiratory/Chest Respiratory/Chest: Denies cough or dyspnea Gastrointestinal Gastrointestinal: Reports as per HPI and diarrhea; Denies abdominal pain, nausea or vomiting Genitourinary Genitourinary ED: Denies dysuria or hematuria Musculoskeletal Musculoskeletal: Denies back pain or neck pain Integumentary Denies abscess or rash Neurologic Neurologic: Denies headache(s), paresthesias or weakness Psychiatric Psychiatric: Denies anxiety or suicidal thoughts EXAM Physical Exam Const Vital Signs: 07/05/23 06:24 Temperature 97.1 F L Temperature Source Temporal Pulse Rate 112 H Respiratory Rate 18 Blood Pressure 150/63 H Blood Pressure Mean 92 Pulse Ox 93 Oxygen Delivery Method Room Air Positive well nourished and well developed Constitutional Narrative: Appears malaised but alert and in no distress, answering questions approp riately. Scattered nonbloody diarrhea that is brown on EMS blanket that accompanies the patient. General Appearance ED: well developed and NAD HEENT Reports moist mucous membranes normocephalic and atraumatic Eyes PERRL and EOMs intact bilaterally Neck full ROM and supple Resp normal respiratory effort and clear to auscultation bilaterally Cardio regular rate, regular rhythm and no murmurs Rate: other Other Details: Mild tachycardia Rhythm: abnormal rhythm ectopic beats (Occasional) GI non-tender and non-distended Auscultation: normoactive bowel sounds Palpation: soft Back/Spine no CVA tenderness General Back: other FROM Extremity normal to inspection General Extremety ED: Negative for edema, pulses abnormal or tenderness General Extremity: Negative for edema or pulses abnormal Neuro oriented x3, CN's II-XII intact bilaterally and no sensory deficits noted Neuro Narrative: Moves all 4 extremities Sensorium / Orientation: awake and alert Motor Exam: general weakness Psych mental status grossly normal Skin no rashes or lesions noted and no wounds MDM MDM MDM Narrative Medical decision making narrative: Patient did have dehydration and hypokalemia before, she refused IV or oral potassium supplementation prior to discharge, so in addition to IV fluids, I am ordering IV potassium 10 mill equivalents, repeat hemoglobin and hematocrit since she was just discharged from the ER several hours ago, and CT angiography of the chest in order to rule out pulmonary embolus as a result of her recently diagnosed left lower extremity DVTs. Apparently when EMS evaluated her and she was starting to come around but still poorly responsive, her vital signs were similar to what they are here, mildly tachycardia with mild hypertension, making bradycardia less likely, although also in the differential is simply a vasovagal phenomenon since she was having a bowel movement at the time, in addition to oth er cardiac etiologies such as dysrhythmias, LA. Her EKG now shows sinus tachycardia and PAC, but there are some minor ST depressions in the septal lateral leads which is new compared with her old EKG. is understandably apprehensive about taking her home, the plan will be to admit her to observation even if all of these tests are negative. I did review her CTA of the chest in real-time, it appears to show bilateral pulmonary emboli, involving the left main pulmonary artery and branches of the right. I discussed with the , this explains some of her EKG changes I suspect, unknown if the PE is acute or cause her syncope or not, but I will put her on a heparin drip and plan will be for admission. Her initial troponin is within normal limits and her H&H is stable compared with what she had earlier, in context of dehydration. Checked out to oncoming ED physician at shift change, patient seen just prior. Lab Data Attestation: I reviewed the patient's lab results. Labs: Laboratory Results - last 24 hr 07/05/23 06:38 Hgb 13.3 Hct 39.7 Troponin I High Sens 40 Rhythm Strip Rhythm Strip: Sinus Tach Rate: 104 Ectopy: PAC(s) EKG Initial EKG: Attestation: I personally reviewed and interpreted this EKG as follows: Interpretation: No Acute Injury Pattern, Sinus Tachycardia and Non- Specific ST Changes Prior EKG tracings: available for review Prior: Unchanged Management Discussion w/another healthcare provider: Hospitalist Discharge Plan Dx/Rx/DC Orders Clinical Impression: Syncope, Anticoagulated, Left leg DVT, Mild dehydration, Rectal bleeding, Acute diarrhea, Myeloma, Hypokalemia due to excessive gastrointestinal loss of potassium, Acute electrocardiogram changes, Pulmonary emboli Disposition Disposition: Acute Care Hospital [facility]
[2023-07-05] MEDS: 0.9% Normal Saline (1000mL) 1,000 ML 999 ML IV (06:52)
[2023-07-05 06:55] LABS: Hematocrit 39.7 % (37-47); Hemoglobin 13.3 g/dL (12.0-15.0); POSITIVE COUNT YES
[2023-07-05] MEDS: Potassium Chloride 10mEq/100mL 10 MEQ/100 ML IV.SOLN. 100 MEQ IV BOLUS ×4 (06:55→20:13)
[2023-07-05 07:06] LABS: Troponin-I HS (w/2H Reflex) 40 pg/mL (3.0-54.0)
[2023-07-05 07:57] LABS: International Normalized Ratio 1.1; Prothrombin Time (Protime)PT. 14.3 SECONDS (11.7-14.9)
[2023-07-05 07:58] LABS: Partial Thromboplast Time 33.8 Seconds (24.1-36.2)
[2023-07-05] MEDS: Heparin Injection (Vial) 5,000 UNIT/ML VIAL 4000 UNIT IV (08:04)
[2023-07-05] MEDS: HEPARIN/D5w 25,000 UNITS 25,000 UNITS/250 ML IV.SOLN. 9 UNITS CONT INF (08:05)
[2023-07-05 08:15] LABS: Anion Gap 4 (5-15); BUN 11 mg/dL (7-18); BUN/Creat Ratio 16.6 RATIO (10-20); Calcium,Total 7.6 mg/dL (8.5-10.1); Chloride 99 mmol/L (98-107); Creatinine, Serum 0.66 mg/dL (0.55-1.02); EST Glomerular Filtration Rate 92 mL/min (>60); Est Glom Filt Rate - Afr Amer 112 mL/min (>60); Glucose 88 mg/dL (74-106); Potassium 2.6 mmol/L (3.5-5.1); Sodium Level 132 mmol/L (136-145)
--- NOTE | 2023-07-05 08:29 | EX.ED.DYSGE1 ---
HPI <Dr. Celeste Garcia MD - Last Filed: 07/05/23 14:52> History of Present Illness Chief Complaint: Syncope <Dr. Deandre Daniels MD - Last Filed: 07/06/23 14:41> History of Present Illness Informant: patient [facility] <Dr. Celeste Garcia MD - Last Filed: 07/05/23 14:52> [facility] Medical History COVID-19 Essential hypertension Former smoker GERD (gastroesophageal reflux disease) History of cerebellar stroke History of hypertension Hyperlipidemia Mild cognitive impairment Myeloma Polyneuropathy Seizure Stroke/cerebrovascular accident Home Medications metoprolol succinate 50 mg tablet,extended release 24 hr 50 mg PO DAILY heart rate ##0 08/15/20 [Rx Last Taken 09/13/22] atorvastatin 40 mg tablet 40 mg PO DAILY cholesterol 09/24/20 [History Last Taken 09/13/22] melatonin 5 mg capsule 5 mg PO QHS PRN Sleep 10/26/20 [History Last Taken 09/12/22] cyclobenzaprine 10 mg tablet 5 mg PO TID PRN PRN muscle spasm 11/05/20 [History Last Taken Unknown] lisinopril 10 mg tablet 40 mg PO DAILY bp 08/31/22 [History Last Taken 09/13/22] aspirin 81 mg tablet,delayed release 81 mg PO DAILY heart health 09/14/22 [History Last Taken 09/13/22] omeprazole 20 mg capsule,delayed release 20 mg PO DAILY 05/11/23 [History Last Taken Unknown] enoxaparin 80 mg/0.8 mL subcutaneous syringe 75 mg subcut Q12H 07/05/23 [History Last Taken Unknown] potassium chloride 20 mEq tablet,extended release(part/cryst) 20 meq PO BID supplement 07/05/23 [History Last Taken Unknown] prednisone 20 mg tablet 60 mg PO BID 07/05/23 [History Last Taken Unknown] Allergy/AdvReac Type Severity Reaction Status Date / Time amoxicillin AdvReac Severe Diarrhea Verified 07/05/23 06:28 sulfamethoxazole AdvReac Severe Anaphylaxis Verified 07/05/23 06:28 [From Bactrim] trimethoprim [From Bactrim] AdvReac Swelling Verified 07/05/23 06:28 Family History Brother Alcoholism Asthma Myocardial infarction, Onset Age: 52 Seizures Skin cancer Sister CVA (cerebral vascular accident) Asthma Grandfather Asthma Father Myocardial infarction, Onset Age: 46 Had at age 46 & 62 Mother Myocardial infarction, Onset Age: 82 Surgical History History of amputation of finger History of cataract surgery History of eye surgery History of right hip replacement History of total left hip replacement Social History Smoking Status: Former smoker Tobacco: How many years used: 30 how long ago did patient quit smokin years ago second hand exposure: No alcohol intake: current alcohol intake frequency: holidays/special occasions only Alcohol type: wine substance use type: does not use amy/hoahaoism: None seatbelt use: always EXAM <Dr. Celeste Garcia MD - Last Filed: 07/05/23 14:52> Physical Exam Const Vital Signs: 07/05/23 06:24 07/05/23 07:30 07/05/23 07:33 Temperature 97.1 F L Temperature Source Temporal Pulse Rate 112 H 110 H 114 H Respiratory Rate 18 20 H 14 Blood Pressure 150/63 H 178/70 H 178/70 H Blood Pressure Mean 92 106 106 Pulse Ox 93 100 99 Oxygen Delivery Method Room Air Room Air Oxygen Flow Rate (L/min) 07/05/23 08:23 07/05/23 09:37 07/05/23 10:47 Temperature 97.8 F Temperature Source Temporal Pulse Rate 115 H 108 H 118 H Respiratory Rate 20 H 21 H 15 Blood Pressure 156/69 H 163/71 H 152/70 H Blood Pressure Mean 98 101 97 Pulse Ox 93 96 96 Oxygen Delivery Method Room Air Room Air Nasal Cannula Oxygen Flow Rate (L/min) 2 07/05/23 10:15 07/05/23 11:00 07/05/23 12:00 Temperature Temperature Source Pulse Rate 94 113 H Respiratory Rate 19 H 23 H Blood Pressure 119/59 L 187/61 H Blood Pressure Mean 79 103 Pulse Ox 87 99 98 Oxygen Delivery Method Room Air Nasal Cannula Nasal Cannula Oxygen Flow Rate (L/min) 2 2 07/05/23 13:00 07/05/23 14:00 Temperature 98.6 F Temperature Source Oral Pulse Rate 102 H 160 H Respiratory Rate 25 H 18 Blood Pressure 139/62 H 159/53 H Blood Pressure Mean 87 88 Pulse Ox 96 95 Oxygen Delivery Method Room Air Nasal Cannula Oxygen Flow Rate (L/min) 2 <Dr. Deandre Daniels MD - Last Filed: 07/06/23 14:41> Physical Exam Const Vital Signs: 07/05/23 06:24 07/05/23 07:30 07/05/23 07:33 Temperature 97.1 F L Temperature Source Temporal Pulse Rate 112 H 110 H 114 H Respiratory Rate 18 20 H 14 Blood Pressure 150/63 H 178/70 H 178/70 H Blood Pressure Mean 92 106 106 Pulse Ox 93 100 99 Oxygen Delivery Method Room Air Room Air Oxygen Flow Rate (L/min) 07/05/23 08:23 07/05/23 09:37 07/05/23 10:47 Temperature 97.8 F Temperature Source Temporal Pulse Rate 115 H 108 H 118 H Respiratory Rate 20 H 21 H 15 Blood Pressure 156/69 H 163/71 H 152/70 H Blood Pressure Mean 98 101 97 Pulse Ox 93 96 96 Oxygen Delivery Method Room Air Room Air Nasal Cannula Oxygen Flow Rate (L/min) 2 07/05/23 10:15 07/05/23 11:00 07/05/23 12:00 Temperature Temperature Source Pulse Rate 94 113 H Respiratory Rate 19 H 23 H Blood Pressure 119/59 L 187/61 H Blood Pressure Mean 79 103 Pulse Ox 87 99 98 Oxygen Delivery Method Room Air Nasal Cannula Nasal Cannula Oxygen Flow Rate (L/min) 2 2 07/05/23 13:00 07/05/23 14:00 Temperature 98.6 F Temperature Source Oral Pulse Rate 102 H 160 H Respiratory Rate 25 H 18 Blood Pressure 139/62 H 159/53 H Blood Pressure Mean 87 88 Pulse Ox 96 95 Oxygen Delivery Method Room Air Nasal Cannula Oxygen Flow Rate (L/min) 2 MDM <Dr. Celeste Garcia MD - Last Filed: 07/05/23 14:52> MDM Lab Data Labs: Laboratory Results - last 24 hr 07/05/23 07/05/23 07/05/23 06:38 07:45 09:00 Hgb 13.3 Hct 39.7 PT 14.3 INR 1.1 APTT 33.8 Sodium 132 L Potassium 2.6 L* Chloride 99 Carbon Dioxide 29.0 Anion Gap 4 L BUN 11 Creatinine 0.66 Estim Creat Clear Calc 45.50 Est GFR (MDRD) Af Amer 112 Est GFR (MDRD) Non-Af 92 BUN/Creatinine Ratio 16.6 Glucose 88 Calcium 7.6 L Troponin I High Sens 40 45 07/05/23 07/05/23 14:05 14:17 Hgb 12.5 Hct 37.8 PT INR APTT > 200.0 H* Sodium Potassium Chloride Carbon Dioxide Anion Gap BUN Creatinine Estim Creat Clear Calc Est GFR (MDRD) Af Amer Est GFR (MDRD) Non-Af BUN/Creatinine Ratio Glucose Calcium Troponin I High Sens 42 Radiography Diagnostic Testing: Clinical Impression(s) from Imaging Studies Chest CTA 07/05/23 06:29 IMPRESSION: Bilateral pulmonary artery emboli 1. Occlusive thrombus is present in the secondary peripheral branches of the left pulmonary artery supplying the superior segment of the left lower lobe. Nonocclusive clot is present in the distal peripheral branches of the right pulmonary artery supplying the right lower lobe. There is also a moderate amount of thrombus in the mid to distal half of the left main pulmonary artery which extends into the peripheral branches. No saddle embolus is present. The main pulmonary trunk and the right main pulmonary artery are normal. Diffuse groundglass edema is present throughout both lungs. 2. No visualized pulmonary infarction or pneumonic consolidation. No pleural effusions are present. Electronically Signed: Lance Graves MD at 8:23 EST Reading Location ID and State: [address] [place] [address] , Service support , ADDENDUM: 07/05/23 0834 IMPRESSION: Bilateral pulmonary artery emboli 1. Occlusive thrombus is present in the secondary peripheral branches of the left pulmonary artery supplying the superior segment of the left lower lobe. Nonocclusive clot is present in the distal peripheral branches of the right pulmonary artery supplying the right lower lobe. There is also a moderate amount of thrombus in the mid to distal half of the left main pulmonary artery which extends into the peripheral branches. No saddle embolus is present. The main pulmonary trunk and the right main pulmonary artery are normal. Diffuse groundglass edema is present throughout both lungs. 2. No visualized pulmonary infarction or pneumonic consolidation. No pleural effusions are present. N.B. : The above Results were Read Back by Lance Graves MD to Celeste Garza MD, and understanding confirmed on 07/05/2023 08:27:53 (ET). Electronically Signed: Lance Graves MD at 8:23 EST , Rhythm Strip Rhythm Strip: Sinus Tach Rate: 104 Ectopy: PAC(s) Treatment and Re-Evaluation :: Patient signed out to me pending CTA results. Dr. Daniels had already given the patient 10 mEq of IV potassium and started her on a heparin drip. While awaiting report on the CTA, patient was observed having a 34 beat run of tachyarrhythmia. On my review of the strip it appears more consistent with an SVT as I do believe it is too narrow complex for V. tach. Patient was asymptomatic and it terminated spontaneously. At that time I did order a repeat BMP and her potassium is now 2.6. I have ordered another 20 mEq potassium on top of the 10 mEq already ordered by Dr. Daniels. CTA of the chest returns with bilateral pulmonary embolism, left greater than right. No evidence of heart strain. No evidence of saddle embolus. I will speak with hospitalist regarding admission. Addendum: Patient has been in the emergency room during my shift. Hospitalist did come see her. After speaking with oncology there was concern that she needed a special medication because of chemotherapy induced colitis with GI bleed now requiring high coagulation. Patient is currently on a heparin drip. She has had episodes of increased heart rate periodically. A repeat EKG is read as SVT with a rate of 160, however her heart rate is not consistent at 1 value and does fluctuate. When she does slow down I can see distinct P waves on the monitor so I am unsure if she has MAT or another form of tachycardia. In review of her medication list she is normally on metoprolol for heart rate control and does not carry a diagnosis of A-fib. At this time she has been given 5 mg of IV metoprolol. Her PTT is currently greater than 200 and heparin drip is turned off at this time. She did have another episode of bloody diarrhea while in the emergency room and hemoglobin is repeated and is stable at 12.5. Third troponin value was also obtained and is normal at 42. Patient has been accepted at [facility] but reportedly was #26 or 27 on the list for a bed. Plan will be to get her upstairs here while awaiting bed placement. I have updated the hospitalist with her findings. <Dr. Deanrde Daniels MD - Last Filed: 07/06/23 14:41> [facility] Lab Data Labs: Laboratory Results - last 24 hr 07/05/23 07/05/23 07/05/23 06:38 07:45 09:00 Hgb 13.3 Hct 39.7 PT 14.3 INR 1.1 APTT 33.8 Sodium 132 L Potassium 2.6 L* Chloride 99 Carbon Dioxide 29.0 Anion Gap 4 L BUN 11 Creatinine 0.66 Estim Creat Clear Calc 45.50 Est GFR (MDRD) Af Amer 112 Est GFR (MDRD) Non-Af 92 BUN/Creatinine Ratio 16.6 Glucose 88 Calcium 7.6 L Troponin I High Sens 40 45 07/05/23 07/05/23 14:05 14:17 Hgb 12.5 Hct 37.8 PT INR APTT > 200.0 H* Sodium Potassium Chloride Carbon Dioxide Anion Gap BUN Creatinine Estim Creat Clear Calc Est GFR (MDRD) Af Amer Est GFR (MDRD) Non-Af BUN/Creatinine Ratio Glucose Calcium Troponin I High Sens 42 Radiography Diagnostic Testing: Clinical Impression(s) from Imaging Studies Chest CTA 07/05/23 06:29 IMPRESSION: Bilateral pulmonary artery emboli 1. Occlusive thrombus is present in the secondary peripheral branches of the left pulmonary artery supplying the superior segment of the left lower lobe. Nonocclusive clot is present in the distal peripheral branches of the right pulmonary artery supplying the right lower lobe. There is also a moderate amount of thrombus in the mid to distal half of the left main pulmonary artery which extends into the peripheral branches. No saddle embolus is present. The main pulmonary trunk and the right main pulmonary artery are normal. Diffuse groundglass edema is present throughout both lungs. 2. No visualized pulmonary infarction or pneumonic consolidation. No pleural effusions are present. Electronically Signed: Lance Graves MD at 8:23 EST , ADDENDUM: 07/05/23 0834 IMPRESSION: Bilateral pulmonary artery emboli 1. Occlusive thrombus is present in the secondary peripheral branches of the left pulmonary artery supplying the superior segment of the left lower lobe. Nonocclusive clot is present in the distal peripheral branches of the right pulmonary artery supplying the right lower lobe. There is also a moderate amount of thrombus in the mid to distal half of the left main pulmonary artery which extends into the peripheral branches. No saddle embolus is present. The main pulmonary trunk and the right main pulmonary artery are normal. Diffuse groundglass edema is present throughout both lungs. 2. No visualized pulmonary infarction or pneumonic consolidation. No pleural effusions are present. N.B. : The above Results were Read Back by Lance Graves MD to Celeste Garza MD, and understanding confirmed on 07/05/2023 08:27:53 (ET). Electronically Signed: Lance Graves MD at 8:23 EST , Discharge Plan Dx/Rx/DC Orders Clinical Impression: Syncope, Anticoagulated, Left leg DVT, Mild dehydration, Rectal bleeding, Acute diarrhea, Myeloma, Hypokalemia due to excessive gastrointestinal loss of potassium, Acute electrocardiogram changes, Pulmonary emboli Disposition Disposition: Acute Care Hospital [facility] Discharge Date/Time: 07/05/23 16:52
[2023-07-05 08:46] LABS: Reflex Troponin-HS? (from REC) Y
[2023-07-05 09:36] LABS: Troponin-I HS 45 pg/mL (3.0-54.0)
--- NOTE | 2023-07-05 11:24 | ED.RN ---
This RN called to room by pt's spouse. Pt complains of feeling dizzy, states wrist is burning with potassium infusion. Pt's blood pressure 99/49, heart rate 92. Pt's head of bed lowered, ice pack applied to wrist. Blood pressure 124/74 with repeat check. Normal saline running with potassium for comfort. MD aware.
--- NOTE | 2023-07-05 14:05 | EKG12_ITS ---
Test Reason : REPEAT-TACHY/CP Blood Pressure : / mmHG Vent. Rate : 160 BPM Atrial Rate : 000 BPM P-R Int : 000 ms QRS Dur : 080 ms QT Int : 296 ms P-R-T Axes : 000 084 015 degrees QTc Int : 482 ms Critical Test Result: High HR Supraventricular tachycardia Nonspecific ST abnormality Abnormal ECG Confirmed by LISBETH HECTOR, TRELL ([id number]), editor department CLAYTON QUINONES ([id number]) on 07/09/2023 8:08:40 AM Referred By: Confirmed By:JERILYN BOB MD
[2023-07-05] MEDS: 0.9% Normal Saline (1000mL) 1,000 ML 150 ML IV (14:15)
[2023-07-05] MEDS: Metoprolol Tartrate 5 MG/5 ML Vial IV (14:28)
[2023-07-05 14:29] LABS: Hematocrit 37.8 % (37-47); Hemoglobin 12.5 g/dL (12.0-15.0); POSITIVE COUNT YES
[2023-07-05 14:34] LABS: Partial Thromboplast Time > 200.0 Seconds (24.1-36.2)
[2023-07-05 14:40] LABS: Troponin-I HS 42 pg/mL (3.0-54.0)
--- NOTE | 2023-07-05 17:35 | HP.PCM.HOS_ITS ---
[facility] - General General Date of Admission: 07/05/23 Date of Service: 07/05/23 Chief Complaint: Syncope, generalized weakness [facility] Narrative MISTI HUERTA, is a 77 F who presents to the emergency room at [facility] with complaints of syncope early this morning and generalized weakness. Patient denies any chest pain or shortness of breath. Patient was seen in the emergency room early this morning and released home, her potassium was low at that time and she was given potassium supplementation. 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 Patient's states that she has been very weak at home. She was recently diagnosed with a lower extremity VTE and was placed on subcu Lovenox. EKG was obtained in the emergency room, it showed a normal sinus rhythm without evidence of ischemic changes, there were occasional PACs noted, patient had CTA of the chest which showed bilateral pulmonary emboli, patient did not require oxygen however and appeared hemodynamically stable. Labs obtained in the emergency room included hemoglobin which was 12.5, chemistry panel revealed a sodium of 132 and a potassium of 2.6. CBC done earlier today during the patient's first ER visit revealed a normal white blood cell count and hemoglobin but her platelet count was 57,000. While in the emergency room, patient had episodes of tachycardia which at first were brief and asymptomatic-it appeared that these episodes were runs of SVT, after she had been in the emergency room for a while, she continued to have episodes of sinus tachycardia and was given IV Lopressor. It appears that the patient is on metoprolol at home for heart rate control. I talked with her oncologist Dr. Palma by phone, due to the patient's chronic diarrhea he recommended the patient be transferred to either [facility] or [facility] for additional care for the diarrhea. I contacted [facility] and they agreed to take the patient but had no beds available, patient will be admitted to PCU for ongoing care. [facility] Medical History COVID-19 Essential hypertension Former smoker GERD (gastroesophageal reflux disease) History of cerebellar stroke History of hypertension Hyperlipidemia Mild cognitive impairment Myeloma Polyneuropathy Seizure Stroke/cerebrovascular accident Home Medications metoprolol succinate 50 mg tablet,extended release 24 hr 50 mg PO DAILY heart rate ##0 08/15/20 [Rx Last Taken 09/13/22] atorvastatin 40 mg tablet 40 mg PO DAILY cholesterol 09/24/20 [History Last Taken 09/13/22] melatonin 5 mg capsule 5 mg PO QHS PRN Sleep 10/26/20 [History Last Taken 09/12/22] cyclobenzaprine 10 mg tablet 5 mg PO TID PRN PRN muscle spasm 11/05/20 [History Last Taken Unknown] lisinopril 10 mg tablet 40 mg PO DAILY bp 08/31/22 [History Last Taken 09/13/22] aspirin 81 mg tablet,delayed release 81 mg PO DAILY heart health 09/14/22 [History Last Taken 09/13/22] omeprazole 20 mg capsule,delayed release 20 mg PO DAILY 05/11/23 [History Last Taken Unknown] enoxaparin 80 mg/0.8 mL subcutaneous syringe 75 mg subcut Q12H 07/05/23 [History Last Taken Unknown] potassium chloride 20 mEq tablet,extended release(part/cryst) 20 meq PO BID supplement 07/05/23 [History Last Taken Unknown] prednisone 20 mg tablet 60 mg PO BID 07/05/23 [History Last Taken Unknown] Allergy/AdvReac Type Severity Reaction Status Date / Time amoxicillin AdvReac Severe Diarrhea Verified 07/05/23 06:28 sulfamethoxazole AdvReac Severe Anaphylaxis Verified 07/05/23 06:28 [From Bactrim] trimethoprim [From Bactrim] AdvReac Swelling Verified 07/05/23 06:28 Family History Brother Alcoholism Asthma Myocardial infarction, Onset Age: 52 Seizures Skin cancer Sister CVA (cerebral vascular accident) Asthma Grandfather Asthma Father Myocardial infarction, Onset Age: 46 Had at age 46 & 62 Mother Myocardial infarction, Onset Age: 82 Surgical History History of amputation of finger History of cataract surgery History of eye surgery History of right hip replacement History of total left hip replacement Social History Smoking Status: Former smoker Tobacco: How many years used: 30 how long ago did patient quit smokin years ago second hand exposure: No alcohol intake: current alcohol intake frequency: holidays/special occasions only Alcohol type: wine substance use type: does not use amy/yazidi: None seatbelt use: always ROS Constitutional Constitutional: Reports fatigue, malaise and weakness; Denies anorexia, change in weight, chills, fever(s) or night sweats Eyes Eyes: Denies blurry vision, change in vision, discharge from eye(s) or eye pain Cardiovascular Cardiovascular: Denies chest pain, claudication, edema, lightheadedness or palpitations Respiratory/Chest Respiratory/Chest: Denies cough, dyspnea, hemoptysis, shortness of breath at re st or shortness of breath with exertion Gastrointestinal Gastrointestinal: Reports diarrhea and hematochezia; Denies abdominal pain, constipation, hematemesis, melena, nausea or vomiting Genitourinary Genitourinary: Denies dysuria, hematuria, urinary frequency, urinary hesitancy, urinary incontinence or urinary urgency Musculoskeletal Musculoskeletal: Denies back pain, joint pain, joint stiffness, joint swelling, myalgias or neck pain Neurologic Neurologic: Reports syncope; Denies abnormal gait, abnormal speech, dizziness, focal weakness, headache(s), loss of vision, numbness, other visual disturb ances, paresthesias or tingling Psychiatric Psychiatric: Denies anxiety, cognitive impairment, depression, irritability, mood swings or suicidal ideation Endocrine Endocrinology: Denies change in body appearance, cold intolerance, excessive sweating, heat intolerance, polydipsia or polyuria Hematologic/Lymphatic Hematologic/Lymphatic: Denies none, anemia, easy bleeding, easy bruising or lymphadenopathy Allergic/Immunologic Allergic/Immunologic: Denies rhinitis, urticaria, eczemia or asthma Vital Signs Vital Signs Vital Signs: 07/05/23 06:24 07/05/23 07:30 07/05/23 07:33 Temperature 97.1 F L Temperature Source Temporal Pulse Rate 112 H 110 H 114 H Respiratory Rate 18 20 H 14 Blood Pressure 150/63 H 178/70 H 178/70 H Blood Pressure Mean 92 106 106 Blood Pressure Source Blood Pressure Position Blood Pressure Location Pulse Ox 93 100 99 Oxygen Delivery Method Room Air Room Air Oxygen Flow Rate (L/min) 07/05/23 08:23 07/05/23 09:37 07/05/23 10:47 Temperature 97.8 F Temperature Source Temporal Pulse Rate 115 H 108 H 118 H Respiratory Rate 20 H 21 H 15 Blood Pressure 156/69 H 163/71 H 152/70 H Blood Pressure Mean 98 101 97 Blood Pressure Source Blood Pressure Position Blood Pressure Location Pulse Ox 93 96 96 Oxygen Delivery Method Room Air Room Air Nasal Cannula Oxygen Flow Rate (L/min) 2 07/05/23 10:15 07/05/23 11:00 07/05/23 12:00 Temperature Temperature Source Pulse Rate 94 113 H Respiratory Rate 19 H 23 H Blood Pressure 119/59 L 187/61 H Blood Pressure Mean 79 103 Blood Pressure Source Blood Pressure Position Blood Pressure Location Pulse Ox 87 99 98 Oxygen Delivery Method Room Air Nasal Cannula Nasal Cannula Oxygen Flow Rate (L/min) 2 2 07/05/23 13:00 07/05/23 14:00 07/05/23 15:00 Temperature 98.6 F Temperature Source Oral Pulse Rate 102 H 160 H 105 H Respiratory Rate 25 H 18 16 Blood Pressure 139/62 H 159/53 H 146/59 H Blood Pressure Mean 87 88 88 Blood Pressure Source Blood Pressure Position Blood Pressure Location Pulse Ox 96 95 95 Oxygen Delivery Method Room Air Nasal Cannula Nasal Cannula Oxygen Flow Rate (L/min) 2 3 07/05/23 17:16 Temperature 98.8 F Temperature Source Oral Pulse Rate 102 H Respiratory Rate 16 Blood Pressure 133/61 H Blood Pressure Mean 85 Blood Pressure Source Monitor Blood Pressure Position Semi-Fowlers Blood Pressure Location Left Arm Pulse Ox 98 Oxygen Delivery Method Nasal Cannula Oxygen Flow Rate (L/min) 2 Weight Weight: 78.9 kg Body Mass Index (BMI) 28.0 Physical Exam Const oriented x3 and no apparent distress Constitutional Narrative: Patient is lethargic, she awakens readily to verbal and tactile stimulation however and is appropriate. She appears unwell and somewhat frail. General Appearance: cooperative, well kempt and well developed Orientation / Consciousness: oriented to person and oriented to place HEENT normocephalic, head/scalp atraumatic, hearing grossly normal bilaterally and moist oral mucous membranes Eyes PERRL, EOMs intact bilaterally and conjunctivae normal Neck supple, no JVD, thyroid normal and no carotid bruits General: trachea midline Resp normal respiratory effort, no retractions, no use of accessory muscles and clear to auscultation bilaterally Auscultation: Negative for rales, rhonchi or wheezes Cardio regular rate, regular rhythm, S1 normal heart sound, S2 normal heart sound, no murmurs, no rub and no gallops GI normal to inspection, nondistended, normoactive bowel sounds, soft to palpation, non-tender and non-distended Extremity no clubbing, cyanosis or edema Skin no rashes or lesions noted General Skin Exam: no breakdown Neuro CN's II-XII intact bilaterally, moves all extremities, no focal motor deficits and no sensory deficits noted Neuro Narrative: Patient is lethargic, she awakens to tactile and verbal stimuli, she answers questions appropriately and follows commands Speech: speech normal Psych Psych Narrative: Patient is lethargic, she responds to verbal and tactile stimulation and answers questions appropriately Results Lab / Micro Data 07/05/23 14:17 07/05/23 07:45 Labs: Laboratory Results - last 24 hr 07/05/23 06:38: Hgb 13.3, Hct 39.7, PT 14.3, INR 1.1, APTT 33.8, Troponin I High Sens 40 07/05/23 07:45: Sodium 132 L, Potassium 2.6 L*, Chloride 99, Carbon Dioxide 29.0, Anion Gap 4 L, BUN 11, Creatinine 0.66, Estim Creat Clear Calc 45.50, Est GFR (MDRD) Af Amer 112, Est GFR (MDRD) Non-Af 92, BUN/Creatinine Ratio 16.6, Glucose 88, Calcium 7.6 L 07/05/23 09:00: Troponin I High Sens 45 07/05/23 14:05: APTT > 200.0 H* 07/05/23 14:17: Hgb 12.5, Hct 37.8, Troponin I High Sens 42 Rhythm Strip Rhythm Strip: Sinus Tach Rate: 104 Ectopy: PAC(s) Radiology Impression Chest CTA 07/05/23 06:29 IMPRESSION: Bilateral pulmonary artery emboli 1. Occlusive thrombus is present in the secondary peripheral branches of the left pulmonary artery supplying the superior segment of the left lower lobe. Nonocclusive clot is present in the distal peripheral branches of the right pulmonary artery supplying the right lower lobe. There is also a moderate amount of thrombus in the mid to distal half of the left main pulmonary artery which extends into the peripheral branches. No saddle embolus is present. The main pulmonary trunk and the right main pulmonary artery are normal. Diffuse groundglass edema is present throughout both lungs. 2. No visualized pulmonary infarction or pneumonic consolidation. No pleural effusions are present. Electronically Signed: Lance Graves MD at 8:23 EST , ADDENDUM: 07/05/23 0834 IMPRESSION: Bilateral pulmonary artery emboli 1. Occlusive thrombus is present in the secondary peripheral branches of the left pulmonary artery supplying the superior segment of the left lower lobe. Nonocclusive clot is present in the distal peripheral branches of the right pulmonary artery supplying the right lower lobe. There is also a moderate amount of thrombus in the mid to distal half of the left main pulmonary artery which extends into the peripheral branches. No saddle embolus is present. The main pulmonary trunk and the right main pulmonary artery are normal. Diffuse groundglass edema is present throughout both lungs. 2. No visualized pulmonary infarction or pneumonic consolidation. No pleural effusions are present. N.B. : The above Results were Read Back by Lance Graves MD to Celeste Garza MD, and understanding confirmed on 07/05/2023 08:27:53 (ET). Electronically Signed: Lance Graves MD at 8:23 EST , Assessment & Plan Assessment/Plan (1) Syncope: PLAN: Plan 1. Syncope-exact etiology unclear at this point, patient could have been vasovagal or had a tachycardia, she will be admitted to PCU on telemetry, IV fluids will be administered #2 hypokalemia-patient will be given potassium replacement and IV fluids, labs will be rechecked #3 pulmonary embolism-patient is not hypoxic and appears hemodynamically stable, she will be maintained on her Lovenox which she was taking as an outpatient for a VTE #4 persistent diarrhea secondary to immunotherapy for multiple myeloma-I had a conversation with her oncologist by phone he request that she be transferred to tertiary facility for further treatment, she is on the waiting list to go to [facility] at this time #5 thrombocytopenia-etiology unclear-labs will be rechecked tomorrow if the patient is still hospitalized here #6 multiple myeloma-complicates care, medical course, recovery, and prognosis #7 cardiac arrhythmias-sinus tach and brief episode of SVT-patient will remain on a rate control medication Total clinical time spent by myself addressing the patient's medical issues, reviewing all of her data, and collaborating with patient's care team: 75 minutes Charges/Coding Visit Charges Inpatient E&M: 82754 Init Hosp L3
[2023-07-05] MEDS: KCl 20MEQ in D5NS 20 MEQ/1,000 ML IV.SOLN. 100 MEQ IV (18:12)
[2023-07-05] MEDS: Enoxaparin 80 MG/0.8 ML Syringe SC (18:15)
[2023-07-05] MEDS: Potassium Chloride Oral Tablet 20 MEQ PO (18:22)
[2023-07-05] MEDS: Ondansetron 4 MG/2 ML Vial IV (20:00)
[2023-07-05] MEDS: 0.9% Saline Lock 10 ML Syringe IV (20:00)
--- NOTE | 2023-07-05 20:40 | NURSING ---
Report given to SHI Hunter from [facility] at 20:40
--- NOTE | 2023-07-06 06:42 | DS.PCM_ITS ---
Providers Date of Admission: 07/05/23 Date of Discharge: 07/05/23 Primary Care Physician: Dr. Marvin Malloy MD Reason For Visit: HYPOKALEMIA, DEBILITY, SYNCOPE Diagnosis Discharge Diagnosis (1) Syncope: Status: Acute Code(s): R55 - Syncope and collapse Plan 1. Syncope-exact etiology unclear at this point, patient could have been vasovagal or had a tachycardia, she will be admitted to PCU on telemetry, IV fluids will be administered #2 hypokalemia-patient will be given potassium replacement and IV fluids, labs will be rechecked #3 pulmonary embolism-patient is not hypoxic and appears hemodynamically stable, she will be maintained on her Lovenox which she was taking as an outpatient for a VTE #4 persistent diarrhea secondary to immunotherapy for multiple myeloma-I had a conversation with her oncologist by phone he request that she be transferred to tertiary facility for further treatment, she is on the waiting list to go to [facility] at this time #5 thrombocytopenia-etiology unclear-labs will be rechecked tomorrow if the patient is still hospitalized here #6 multiple myeloma-complicates care, medical course, recovery, and prognosis #7 cardiac arrhythmias-sinus tach and brief episode of SVT-patient will remain on a rate control medication Total clinical time spent by myself addressing the patient's medical issues, reviewing all of her data, and collaborating with patient's care team: 75 minutes Medications at Discharge Home Medications metoprolol succinate 50 mg tablet,extended release 24 hr 50 mg PO DAILY heart rate ##0 08/15/20 atorvastatin 40 mg tablet 40 mg PO DAILY cholesterol 09/24/20 melatonin 5 mg capsule 5 mg PO QHS PRN Sleep 10/26/20 cyclobenzaprine 10 mg tablet 5 mg PO TID PRN PRN muscle spasm 11/05/20 lisinopril 10 mg tablet 40 mg PO DAILY bp 08/31/22 aspirin 81 mg tablet,delayed release 81 mg PO DAILY heart health 09/14/22 omeprazole 20 mg capsule,delayed release 20 mg PO DAILY 05/11/23 enoxaparin 80 mg/0.8 mL subcutaneous syringe 75 mg subcut Q12H 07/05/23 potassium chloride 20 mEq tablet,extended release(part/cryst) 20 meq PO BID supplement 07/05/23 prednisone 20 mg tablet 60 mg PO BID 07/05/23 Hospital Course Procedures None Summary of Care Provided Minutes Spent on Discharge: 70 Hospital Course: This 77-year-old white female was seen in the emergency room at [facility] with complaints of a syncopal episode at home and generalized weakness. Patient is under immunotherapy for multiple myeloma, she has had chronic diarrhea for 2 months and is debilitated. She had blood in her stool but hemoglobin in the emergency room did not show a drop. Work-up in the emergency room revealed her potassium to be low, EKG showed a sinus rhythm, she had a episode of SVT in the emergency room which was asymptomatic and was not treated. CTA of the chest was performed which showed pulmonary emboli but the patient had been on outpatient Lovenox for treatment of a DVT in her leg and this was continued. Patient was not hypoxic. Her oncologist was contacted by the hospitalist service, he advised patient be transferred to tertiary facility due to her chronic diarrhea from immunotherapy. [facility] was contacted and agreed to except the patient but there were no beds available. Patient was admitted to PCU and monitored, she was given potassium replacement and IV fluids. On 07/05/2023, patient was seen and examined: On examination she appeared unwell and frail, she does not appear to be in any distress. Vital signs as documented. Skin warm and dry and without overt rashes. Neck without JVD, thyroid appears normal, trachea is midline, neck is supple. Lungs clear, normal air movement was noted. Heart exam notable for regular rhythm, normal sounds and absence of murmurs, rubs or gallops. Abdomen unremarkable and without evidence of organomegaly, masses, or abdominal aortic enlargement, bowel sounds are present in all 4 quadrants, no abdominal tenderness was noted. Extremities nonedematous, no cyanosis was noted, no clubbing was noted. Neuro: Cranial nerves II through XII are grossly intact, no focal motor deficits were noted, sensation to light touch and pinprick is intact, motor exam 5/5 throughout. Patient responds to questions appropriately. Psych: Patient is alert, she does not appear anxious or depressed, she does not appear agitated. In evening of 07/05/2023, [facility] notified PCU that there was a bed available and she was transferred there in stable condition. Weight / BMI Weight Weight: 78.9 kg Body Mass Index (BMI) 28.0 ABG / Lab / Microbiology Data 07/05/23 14:17 07/05/23 07:45 Laboratory: Laboratory Results - last 24 hr 07/05/23 06:38: Hgb 13.3, Hct 39.7, PT 14.3, INR 1.1, APTT 33.8, Troponin I High Sens 40 07/05/23 07:45: Sodium 132 L, Potassium 2.6 L*, Chloride 99, Carbon Dioxide 29.0, Anion Gap 4 L, BUN 11, Creatinine 0.66, Estim Creat Clear Calc 45.50, Est GFR (MDRD) Af Amer 112, Est GFR (MDRD) Non-Af 92, BUN/Creatinine Ratio 16.6, Glucose 88, Calcium 7.6 L 07/05/23 09:00: Troponin I High Sens 45 07/05/23 14:05: APTT > 200.0 H* 07/05/23 14:17: Hgb 12.5, Hct 37.8, Troponin I High Sens 42 Radiography Diagnostic Testing: Radiology Impression Chest CTA 07/05/23 06:29 IMPRESSION: Bilateral pulmonary artery emboli 1. Occlusive thrombus is present in the secondary peripheral branches of the left pulmonary artery supplying the superior segment of the left lower lobe. Nonocclusive clot is present in the distal peripheral branches of the right pulmonary artery supplying the right lower lobe. There is also a moderate amount of thrombus in the mid to distal half of the left main pulmonary artery which extends into the peripheral branches. No saddle embolus is present. The main pulmonary trunk and the right main pulmonary artery are normal. Diffuse groundglass edema is present throughout both lungs. 2. No visualized pulmonary infarction or pneumonic consolidation. No pleural effusions are present. Electronically Signed: Lance Graves MD at 8:23 EST , ADDENDUM: 07/05/23 0834 IMPRESSION: Bilateral pulmonary artery emboli 1. Occlusive thrombus is present in the secondary peripheral branches of the left pulmonary artery supplying the superior segment of the left lower lobe. Nonocclusive clot is present in the distal peripheral branches of the right pulmonary artery supplying the right lower lobe. There is also a moderate amount of thrombus in the mid to distal half of the left main pulmonary artery which extends into the peripheral branches. No saddle embolus is present. The main pulmonary trunk and the right main pulmonary artery are normal. Diffuse groundglass edema is present throughout both lungs. 2. No visualized pulmonary infarction or pneumonic consolidation. No pleural effusions are present. N.B. : The above Results were Read Back by Lance Graves MD to Celeste Garza MD, and understanding confirmed on 07/05/2023 08:27:53 (ET). Electronically Signed: Lance Graves MD at 8:23 EST Reading Location ID and State: [facility] / [place] , Service support , Meaningful Use Info Meaningful Use Diagnoses (Choose all that apply): None applicable Discharge Plan Admission Admit Date/Time: 07/05/23 12:11 Attending Provider: Rufus Silver Primary Care Provider: Marvin Malloy Discharge Orders/Prescriptions Prescriptions: No Action atorvastatin 40 mg tablet 40 mg PO DAILY melatonin 5 mg capsule 5 mg PO QHS PRN (Reason: Sleep) cyclobenzaprine 10 mg tablet 5 mg PO TID PRN PRN (Reason: muscle spasm) lisinopril 10 mg tablet 40 mg PO DAILY metoprolol succinate 50 MG tablet 50 mg PO DAILY Qty: 0 0RF Rx Instructions: Hold if heart rate less than 60/min aspirin 81 MG tablet,delayed release (DR/EC) 81 mg PO DAILY omeprazole 20 mg capsule,delayed release(DR/EC) 20 mg PO DAILY potassium chloride 20 mEq tablet,ER particles/crystals 20 meq PO BID Patient Comments: TAKE 1 TABLET BY MOUTH 2 TIMES A DAY enoxaparin 80 mg/0.8 mL syringe 75 mg subcut Q12H prednisone 20 mg tablet 60 mg PO BID Referrals / Follow Up: Marvin Malloy MD [Primary Care Provider] - Disposition Disposition (needs filled in before D/C Order can be placed): Acute Care Hospital Charges/Coding Visit Charges OBSV E&M: 00167 Observ/hosp same date L2
== END 2023-07-05 22:00 | disposition short-term general hospital (02) | DRG 391 ==
LOC: ED 08:48 → ICU 09:07 → PCU 15:02
PROVIDERS: Emergency Medicine; Admitting Provider Internal Medicine; Emergency Provider Emergency Medicine; PCP Family Medicine; Visit Provider Internal Medicine
DX: K52.9 Noninfective gastroenteritis and colitis, unspecified (principal); I26.99 Other pulmonary embolism without acute cor pulmonale; I82.402 Acute embolism and thrombosis of unspecified deep veins of left lower extremity; I47.10 Supraventricular tachycardia, unspecified; C90.00 Multiple myeloma not having achieved remission; D69.6 Thrombocytopenia, unspecified; I10 Essential (primary) hypertension; E86.0 Dehydration; E78.5 Hyperlipidemia, unspecified; E87.6 Hypokalemia; R55 Syncope and collapse; Z80.8 Family history of malignant neoplasm of other organs or systems; Z82.3 Family history of stroke; Z86.16 Personal history of COVID-19; Z79.2 Long term (current) use of antibiotics; Z87.891 Personal history of nicotine dependence
CPT/HCPCS: 71275; 80048; 82274; 84484; 85014; 85018; 85025; 85610; 85730; 93005; 99284; 99285; J7030; J7040; Q9967; A4216; J2405

== ENCOUNTER 2023-07-13 14:18 | Inpatient (IN) | payer MEDICARE, OTHER, SELFPAY ==
[2023-07-13 14:32] VITALS: BP 154/84; PULSE 94; RESP 16; TEMP 35.7; O2SAT 96; BMI 25.6
[2023-07-13 14:34] VITALS: BMI 25.5
[2023-07-13] MEDS: Potassium Chloride Oral Tablet 20 MEQ PO (17:33)
--- NOTE | 2023-07-13 20:00 | HP.PCM_ITS ---
[facility] - General General Date of Admission: 07/13/23 Date of Service: 07/13/23 Chief Complaint: Here for 3 hours daily rehabilitation. HPI Narrative 07/05/2023 MISTI HUERTA, is a 77 Female who presents to [facility] ED with syncope. K 2.6, IV KCL given. Heparin drip for bilateral pulmonary embolism, heparin turned off due to high ptt, bloody diarrhea. Metoprolol 5mg IV SVT. 07/05/2023 Admit to [facility]. IV fluids for syncope. IV KCL for hypokalemia. Lovenox for bilateral pulmonary embolism. Dr. Palam treating patient for metastatic maligmant melanoma. Melanoma started left index fingernail, then metastasized to left elbow, left axilla. Patient given 1 dose Opdivo/Yervoy, developed pancolitis, has had bloody diarrhea since. Dr. 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 07/06/2023 Admit to [facility]. Hold heparin, consult Hematology for DVT/PE, thrombocytopenia, bloody stoo. NPO, IV fluids, pantoprazole 40mg IV, consult GI for GI bleed. KCL 40meq for hypokalemia. 07/08/2023 Hold blood thinner for DVT/PE until patient stable. 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 ? embolization candidate. No bloody BM's today. 07/09/2023 GI recommended no repeat colonoscopy. CT A/P showed pancolitis WITHOUT active bleeding. F/u Dr. Palma as outpatient for treatment of metastatic malignant melanoma. Solu-medrol 20mg IV Q8 for immune checkpoint inhibitor induced pancolitis. C. Diff negative, Enteric panel negative for diarrhea. 07/10/2023 Resume heparin drip, transition to Lovenox for DVT/PE when patient stable. Solu-merol 20mg IV Q8, Remicade x 1 for immunotherapy induced pancolitis. 07/13/2023 Admit to for 3 hours daily rehabilitation, strengthening, prior to discharge home with . [facility] Medical History (Updated 07/13/23 @ 20:[address] Mike Valdovinos MD) Acute electrocardiogram changes Anticoagulated COVID-19 Essential hypertension Former smoker GERD (gastroesophageal reflux disease) History of cerebellar stroke History of hypertension Hyperlipidemia Left leg DVT Mild cognitive impairment Mild dehydration Myeloma Polyneuropathy Rectal bleeding Seizure Stroke/cerebrovascular accident Syncope Home Medications metoprolol succinate 50 mg tablet,extended release 24 hr 50 mg PO DAILY heart rate ##0 08/15/20 [Rx Last Taken 09/13/22] atorvastatin 40 mg tablet 40 mg PO DAILY cholesterol 09/24/20 [History Last Taken 09/13/22] melatonin 5 mg capsule 3 mg PO QHS PRN Sleep 10/26/20 [History Last Taken 09/12/22] aspirin 81 mg tablet,delayed release 81 mg PO DAILY heart health 09/14/22 [History Last Taken 09/13/22] omeprazole 20 mg capsule,delayed release 40 mg PO DAILY gerd 05/11/23 [History Last Taken Unknown] potassium chloride 20 mEq tablet,extended release(part/cryst) 20 meq PO BID supplement 07/05/23 [History Last Taken Unknown] acetaminophen 500 mg tablet (Acetaminophen Extra Strength) 1,000 mg PO Q8H PRN PRN pain 07/13/23 [History Last Taken Unknown] apixaban 5 mg tablet 10 mg PO BID blood thinner 07/13/23 [History Last Taken Unknown] lisinopril 20 mg tablet 20 mg PO DAILY blood pressure 07/13/23 [History Last Taken Unknown] loperamide 2 mg capsule (Imodium A-D) 2 mg PO Q6H PRN diarrhea 07/13/23 [History Last Taken Unknown] lorazepam 0.5 mg tablet (Ativan) 0.5 mg PO BID anxiety 07/13/23 [History Last Taken 07/12/23] menthol 0.44 %-zinc oxide 20.6 % topical ointment (Calmoseptine) 1 applic topical TID redness 07/13/23 [History Last Taken Unknown] ondansetron 8 mg disintegrating tablet 8 mg PO Q8H PRN nausea and vomiting 07/13/23 [History Last Taken Unknown] oxycodone 5 mg capsule 5 mg PO Q8H PRN pain 07/13/23 [History Last Taken Unknown] pantoprazole 40 mg tablet,delayed release (Protonix) 40 mg PO DAILY cholitis 07/13/23 [History Last Taken 07/13/23] prednisone 10 mg tablet 10 mg PO .COMPLEX steroid 07/13/23 [History Last Taken 07/13/23] promethazine 25 mg tablet 25 mg PO Q6H PRN nausea 07/13/23 [History Last Taken Unknown] valacyclovir 500 mg tablet 500 mg PO BID PRN as directed 07/13/23 [History Last Taken Unknown] Allergy/AdvReac Type Severity Reaction Status Date / Time amoxicillin AdvReac Severe Diarrhea Verified 07/05/23 06:28 sulfamethoxazole AdvReac Severe Anaphylaxis Verified 07/05/23 06:28 [From Bactrim] trimethoprim [From Bactrim] AdvReac Swelling Verified 07/05/23 06:28 Family History Brother Alcoholism Asthma Myocardial infarction, Onset Age: 52 Seizures Skin cancer Sister CVA (cerebral vascular accident) Asthma Grandfather Asthma Father Myocardial infarction, Onset Age: 46 Had at age 46 & 62 Mother Myocardial infarction, Onset Age: 82 Surgical History History of amputation of finger History of cataract surgery History of eye surgery History of right hip replacement History of total left hip replacement Social History (Updated 07/13/23 @ 20:[address] Mike Valdovinos MD) household members: spouse Smoking Status: Former smoker Tobacco: How many years used: 30 how long ago did patient quit smokin years ago second hand exposure: No alcohol intake: current alcohol intake frequency: holidays/special occasions only Alcohol type: wine substance use type: does not use amy/protestant: None seatbelt use: always ROS Constitutional Constitutional: Reports weakness and weight loss; Denies chills, fever(s) or weight gain ENT HEENT: Denies headache(s), nasal congestion or nasal discharge Cardiovascular Cardiovascular: Denies chest pain or palpitations Respiratory/Chest Respiratory/Chest: Denies cough, excessive phlegm production or shortness of breath with exertion Gastrointestinal Gastrointestinal: Denies abdominal pain, nausea or vomiting Genitourinary Genitourinary: Denies dysuria Musculoskeletal Musculoskeletal: Denies joint pain or joint swelling Integumentary Integumentary: Denies rash or wounds Neurologic Neurologic: Denies focal weakness, numbness or tingling Psychiatric Psychiatric: Denies anxiety, auditory hallucinations, depression, homicidal ideation or suicidal ideation Vital Signs Vital Signs Vital Signs: 07/13/23 14:32 Temperature 96.2 F L Temperature Source Temporal Pulse Rate 94 Respiratory Rate 16 Blood Pressure 154/84 H Blood Pressure Mean 107 Blood Pressure Source Monitor Blood Pressure Position Semi-Fowlers Blood Pressure Location Left Arm Pulse Ox 96 Oxygen Delivery Method Room Air Weight Weight: 72.1 kg Body Mass Index (BMI) 25.5 Indicators for Scoring Admitted with or Primary Diagnosis of CVA/Stroke: No Hx of CVA/Stroke: Yes Modified Cindy Score MRS Score at time of Evaluation: 4-Moderate/severe disability Physical Exam Const alert General Appearance: cooperative HEENT normocephalic Eyes PERRL and EOMs intact bilaterally Neck supple, no JVD and no carotid bruits Resp normal respiratory effort, normal air movement and clear to auscultation bilaterally Cardio regular rate and regular rhythm GI normal to inspection, nondistended, normoactive bowel sounds, non-tender and non-distended Extremity normal capillary refill Extremity Narrative: Left index DIP amputation. 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 * Debility - PT/OT. * Pain - Tylenol 1000mg q6 prn pain (1-5), Oxycodone 5mg q4 prn pain (6-10). * Bowel - senna/colace 2 tablets bid prn, Dulcolax 10mg pr x 1 prn, MOM 30ml po x 1 prn, Loperamide 2mg q6h prn. * Pulmonary embolism - Eliquis 10mg bid thru 07/18/2023, then 5mg bid. * Hyperlipidemia - Atorvastatin 40mg qhs. * Hypertension - Metoprolol succinate 50mg daily, Lisinopril 20mg daily. * Anxiety - Lorazepam 0.5mg bid prn. * Insomnia - Melatonin 3mg qhs prn. * Skin irritation - Calmoseptine topical tid. * Nausea - Zofran 8mg q8 prn, Promethazine 25mg q6 prn. * GERD - Pantoprazole 40mg daily. * Hypokalemia - KCL 20meq bidcm. * Immune checkpoint inhibitor induced pancolitis - Prednisone taper, consult Dr. Palma for repeat Remicade infusion. * Metastatic Malignant Melanoma - Further treatment per Dr. Palma.
[2023-07-13] MEDS: Senna/Docusate Sodium 1 Tablet 2 TABLET PO (20:15)
[2023-07-13] MEDS: APIXABAN 5 MG TABLET 10 MG PO (20:15)
[2023-07-13] MEDS: Atorvastatin Calcium 40 MG Tablet PO (20:15)
[2023-07-13] MEDS: Menthol/Lanolin/Calamine/Znox 113 GM Tube 1 APPLIC TOPICAL (20:15)
[2023-07-13] MEDS: MELATONIN 3 MG TABLET PO (20:20)
[2023-07-13] MEDS: Acetaminophen 500 MG Tablet 1000 MG PO (21:18)
[2023-07-13 21:21] VITALS: O2SAT 98
[2023-07-13 21:30] VITALS: BP 135/82; PULSE 107; RESP 18; TEMP 36.7; O2SAT 98
[2023-07-14] MEDS: Menthol/Lanolin/Calamine/Znox 113 GM Tube 1 APPLIC TOPICAL ×3 (05:15→21:37)
[2023-07-14 07:49] LABS: Hematocrit 36.2 % (37-47); Hemoglobin 11.7 g/dL (12.0-15.0); Mean Corp Hgb Conc 32.3 g/dL (32-36); Mean Corpuscular Hgb 28.3 pg (27.0-32.0); Mean Corpuscular Volume 87.4 fL (81-99); POSITIVE COUNT YES; Platelet Count 85 K/mm3 (150-450); RBC Distribution Width CV 15.4 % (11.6-14.6); RBC Distribution Width SD 46.8 fl (35.1-43.9); Red Blood Count 4.14 M/mm3 (4.2-5.4); White Blood Count 5.9 K/mm3 (4.4-11.0)
[2023-07-14 08:00] VITALS: BP 160/90; PULSE 75; RESP 16; TEMP 36.5; O2SAT 98
[2023-07-14 08:02] LABS: Anion Gap 5 (5-15); BUN 24 mg/dL (7-18); BUN/Creat Ratio 39.2 RATIO (10-20); Chloride 104 mmol/L (98-107); Creatinine, Serum 0.61 mg/dL (0.55-1.02); EST Glomerular Filtration Rate 101 mL/min (>60); Est Glom Filt Rate - Afr Amer 122 mL/min (>60); Glucose 85 mg/dL (74-106); Magnesium 2.4 mg/dL (1.6-2.6); Phosphorus 2.9 mg/dL (2.5-4.9); Potassium 3.9 mmol/L (3.5-5.1); Sodium Level 137 mmol/L (136-145)
[2023-07-14] MEDS: predniSONE 10 MG Tablet 25 MG PO (08:28)
[2023-07-14] MEDS: Potassium Chloride Oral Tablet 20 MEQ PO ×2 (08:28→18:28)
[2023-07-14 10:00] VITALS: PULSE 72
[2023-07-14] MEDS: APIXABAN 5 MG TABLET 10 MG PO ×2 (10:00→21:39)
[2023-07-14] MEDS: Metoprolol(XL)Succ 50 MG Tablet PO (10:00)
[2023-07-14] MEDS: Pantoprazole Sodium 40 MG Tablet PO (10:00)
[2023-07-14] MEDS: Lisinopril 20 MG Tablet PO (10:01)
[2023-07-14] MEDS: Miconazole Nitrate 43 GM Bottle 1 APPLIC TOPICAL ×2 (10:02→21:37)
[2023-07-14] MEDS: Ondansetron 8 MG Tablet PO (11:35)
--- NOTE | 2023-07-14 15:17 | PCM.RU.PYE ---
Admission Information Primary Diagnosis:: Pancolitis, pulmonary embolism. Status Changes from Prescreening?: No changes Identified Actual Problem List:: DVT, Bleeding and Mobility Impaired Potential Problem List:: DVT, Bleeding, Infection, UTI, Aspiration, Falls, Skin Integrity and Depression Risk of Complications DVT: VERONICA Hays and - (On Eliquis.) Bleeding: Monitor Lab Values, Nursing to Teach Precautions for anti-coagulation therapy., Wound, if applicable, to be assessed every shift. and Stroke patients assessed for lethargy or change in status. Infection: Clinical Staff to Monitor for S/S of infection: and S/S of infection include fever, redness, warmth, etc. Urinary Tract Infection: Monitor for frequency, burning, discomfort, or incontinence. and Nursing will obtain urine sample for urinalysis and C&S when ordered. Aspiration: Clinical staff will monitor for coughing, drooling, congestion., Speech will evaluate swallowing and dsyphasia. and Nursing will monitor patient swallowing during meals. Falls: Patient will be evaluated for Fall Precautions and Patient will be placed on Fall Precautions as indicated per protocol. Skin Breakdown: Nursing will assess skin daily using assessment tool. and Nursing will place on Skin Breakdown Precautions as indicated. Pain: Clinical staff will assess patient's pain level per protocol., Medications will be given, if needed, and the pain level reassessed. and Other methods: Massage, distraction, decrease stimulus, etc. used PRN. Plan of Care Patient requires physician specializing in physical medicine and rehab oversight to provide close medical supervision of rehab issues including: Pain Management, Sleep Problems, Bowel and Bladder, Medical and co-morbidity Management, DVT prophylaxis, Rehabilitation Leadership and Coordination of treatment team Patient needs Physical Therapy: At least 5 out of 7 days and For a minimum of 1.5 hrs Patient needs Physical Therapy to improve:: Mobility, Strengthening, Transfers, Stretching, ROM, Endurance, Stairs, Gait and Balance Patient needs Occupational Therapy: At least 5 out of 7 days and For a minimum of 1.5 hrs Patient needs Occupational Therapy to improve ADL's incl.: Eating, Grooming, Bathing, Dressing, Toileting, Toilet transfers, Community Reintegration, Higher functioning activities, Household tasks, Adaptive Equipment and Other activities as determined Patient requires 24/7 Rehabilitation Nursing for: Pain Issues, Identifying and preventing risk factors, Monitoring and reporting current medical conditions, Assisting with ambulation, transfer, and all ADL's, Teaching patients about disease process and medications, Family teaching, Providing safe environment, Bowel and Bladder Issues, Skin integrity and Medication Management Patient needs Metalworking Instructor/ Case Management for: Discharge Planning, Arranging Home Equipment or Services and Family Interventions Patient needs Dietary and Nutrition Services for: Adequate Nutrition, Nutritional Supplements and Nutritional Education Goals Patient will remain: free from falls and or injury at time of discharge. Patient will perform bed mobility at: - (Independent.) Patient will complete transfers from bed to chair at: MOD I level of assist. Patient will ambulate: with MOD I assist and - (150 feet with FWW) Patient will complete upper body dressing at: MOD I level of assist. Patient will complete lower body dressing at: MOD I level of assist. Patient will complete toileting at: - (Min A.) Patient will perform bathing at: MOD I level of assist. Patient will complete grooming at: MOD I level of assist. Patient will complete home management skills at: MOD I level of assist. Patient will achieve: at MOD I assist and - (2 steps) Patient will have pain level of: of 3 or less Patient's skin will: remain intact and free from infection. Patient will receive: adequate nutrition. Discharge Planning Pt Prognosis for Sig. Practical Improv. w/in Reasonable Time: Good Estimated Length of stay (days): 14 Anticipated D/C Destination: Home with Outpt Therapy Was Preadmission Assessment Accurate?: Yes
[2023-07-14 20:00] VITALS: BP 125/75; PULSE 80; RESP 18; TEMP 36.1; O2SAT 95
[2023-07-14] MEDS: Atorvastatin Calcium 40 MG Tablet PO (21:39)
[2023-07-14] MEDS: MELATONIN 3 MG TABLET PO (21:55)
[2023-07-14 22:15] VITALS: PULSE 83; RESP 18; O2SAT 95
[2023-07-15] MEDS: Menthol/Lanolin/Calamine/Znox 113 GM Tube 1 APPLIC TOPICAL ×3 (05:52→21:55)
[2023-07-15] MEDS: Miconazole Nitrate 43 GM Bottle 1 APPLIC TOPICAL ×2 (05:52→21:55)
[2023-07-15 07:40] VITALS: BP 126/72; PULSE 89; RESP 16; TEMP 36.2; O2SAT 98
[2023-07-15 08:31] VITALS: PULSE 89
[2023-07-15] MEDS: Pantoprazole Sodium 40 MG Tablet PO (08:31)
[2023-07-15] MEDS: APIXABAN 5 MG TABLET 10 MG PO ×2 (08:31→21:56)
[2023-07-15] MEDS: predniSONE 10 MG Tablet 25 MG PO (08:31)
[2023-07-15] MEDS: Metoprolol(XL)Succ 50 MG Tablet PO (08:31)
[2023-07-15] MEDS: Potassium Chloride Oral Tablet 20 MEQ PO ×2 (08:31→17:40)
[2023-07-15] MEDS: Lisinopril 20 MG Tablet PO (08:32)
[2023-07-15 21:45] VITALS: BP 122/67; PULSE 94; RESP 17; TEMP 37; O2SAT 95
[2023-07-15 21:46] VITALS: O2SAT 95
[2023-07-15] MEDS: Atorvastatin Calcium 40 MG Tablet PO (21:56)
[2023-07-15] MEDS: Ensure Plus High Protein 120 ML LIQUID PO (22:00)
[2023-07-16] MEDS: Miconazole Nitrate 43 GM Bottle 1 APPLIC TOPICAL ×2 (06:33→21:58)
[2023-07-16] MEDS: Menthol/Lanolin/Calamine/Znox 113 GM Tube 1 APPLIC TOPICAL ×3 (06:34→21:57)
[2023-07-16 07:23] VITALS: BP 121/64; PULSE 88; RESP 16; TEMP 36.5; O2SAT 96
--- NOTE | 2023-07-16 08:12 | CASEMGMT ---
Social Work IDT met with patient and for Team meeting. Discussed patient's progress in PT/OT/SN. Educated to Medicare benefit. SW to update pt/hus once approval of days are given. Currently, pt is requiring extensive assistance for tasks. SW will continue to follow to assist with DC planning. Will ReTeam weekly. MONY MoiseW
[2023-07-16] MEDS: Potassium Chloride Oral Tablet 20 MEQ PO ×2 (08:28→16:43)
[2023-07-16 08:29] VITALS: PULSE 88
[2023-07-16] MEDS: Metoprolol(XL)Succ 50 MG Tablet PO (08:29)
[2023-07-16] MEDS: Pantoprazole Sodium 40 MG Tablet PO (08:29)
[2023-07-16] MEDS: Lisinopril 20 MG Tablet PO (08:29)
[2023-07-16] MEDS: APIXABAN 5 MG TABLET 10 MG PO ×2 (08:29→21:54)
[2023-07-16] MEDS: predniSONE 10 MG Tablet 25 MG PO (08:29)
[2023-07-16] MEDS: Ensure Plus High Protein 120 ML LIQUID PO ×3 (13:00→21:53)
--- NOTE | 2023-07-16 19:17 | PN_ITS ---
Subjective Subjective Patient seen, examined on IDT rounds. Timbo present. Dr. Palma consulted to help facilitate infliximab infusion for pancolitis. Patient has no new complaints, she continues to be weak, but progressing. Objective Data Objective Data Vital Signs: Vital Signs Temp Pulse Resp BP Pulse Ox O2 Del Method 97.7 F L 88 16 121/64 H 96 Room Air 07/16/23 07:23 07/16/23 08:29 07/16/23 07:23 07/16/23 07:23 07/16/23 07:23 07/16/23 07:23 Oxygen Delivery Method Room Air Weight: 72.1 kg Body Mass Index (BMI) 25.5 Intake & Output: Intake and Output for Last 24 Hours 07/14/23 07/15/23 07/16/23 23:59 23:59 23:59 Intake Total 1000 / 1000 1320 / 1320 1200 / 1200 Output Total 1050 / 1050 600 / 600 Balance -50 / -50 720 / 720 1200 / 1200 Medical Nutrition Assessment Dietitian: Malnutrition Criteria Met Start: 07/14/23 12: 03 Freq: Status: Active Protocol: Document 07/14/23 12:04 (Rec: 07/14/23 12:04 [id number]) Nutrition Malnutrition Evidence of Malnutrition Exists Yes Malnutrition (severe): Acute Illness/Injury Evidenced By Suboptimal Energy Intake ( Severe),Weight Loss (Severe) Clinical Problem Acute Disease or Injury Related Malnutrition Etiology severe, acute malnutrition related to inadequate energy intake w/ GI dysfunction Signs/Symptoms as evidenced by unintentional wt loss of 10% x 1 month, estimated PO intake meeting < 50% of estimated energy needs x 1 week Status Active Problem Recommendation Dietitian Recommendations/Changes regular diet as tolerated; will add 120mL ensure plus high protein 4x/day w/ medpass given evidence of acute malnutrition Lab / Micro Data Attestation: I reviewed the patient's lab results. 07/14/23 07:30 07/14/23 07:30 Physical Exam Const alert General Appearance: cooperative HEENT normocephalic Eyes PERRL and EOMs intact bilaterally Neck supple, no JVD and no carotid bruits Resp normal respiratory effort, normal air movement and clear to auscultation bilaterally Cardio regular rate and regular rhythm GI normal to inspection, nondistended, normoactive bowel sounds, non-tender and non-distended Extremity normal capillary refill Extremity Narrative: Left index DIP amputation. 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 * Debility - PT/OT. * Pain - Tylenol 1000mg q6 prn pain (1-5), Oxycodone 5mg q4 prn pain (6-10). * Bowel - senna/colace 2 tablets bid prn, Dulcolax 10mg pr x 1 prn, MOM 30ml po x 1 prn, Loperamide 2mg q6h prn. * Pulmonary embolism - Eliquis 10mg bid thru 07/18/2023, then 5mg bid. * Hyperlipidemia - Atorvastatin 40mg qhs. * Hypertension - Metoprolol succinate 50mg daily, Lisinopril 20mg daily. * Anxiety - Lorazepam 0.5mg bid prn. * Insomnia - Melatonin 3mg qhs prn. * Skin irritation - Calmoseptine topical tid. * Nausea - Zofran 8mg q8 prn, Promethazine 25mg q6 prn. * GERD - Pantoprazole 40mg daily. * Hypokalemia - KCL 20meq bidcm. * Immune checkpoint inhibitor induced pancolitis - Prednisone taper, consult Dr. Palma for repeat Remicade infusion. * Metastatic Malignant Melanoma - Further treatment per Dr. Palma. Capacity Capacity Assessment Tool Can the patient make a choice & communicate that choice?: Yes Can the patient understand benefits, risks and alternatives?: Yes Can the patient make a logical, rational choice?: Yes Is the choice the patient makes consistent w/ their values?: Yes Is there an impending, emergent risk to the patient?: No Does the patient have an Advance Directive?: No Is there a Surrogate Available?: Yes i.e. HCPOA: Yes i.e. close relative (spouse, child, parent, sibling)?: Yes
[2023-07-16 21:45] VITALS: BP 103/50; PULSE 96; RESP 16; TEMP 36.8; O2SAT 98
[2023-07-16] MEDS: Atorvastatin Calcium 40 MG Tablet PO (21:54)
[2023-07-16] MEDS: MELATONIN 3 MG TABLET PO (22:04)
[2023-07-17] MEDS: Miconazole Nitrate 43 GM Bottle 1 APPLIC TOPICAL ×2 (06:38→21:19)
[2023-07-17] MEDS: Menthol/Lanolin/Calamine/Znox 113 GM Tube 1 APPLIC TOPICAL ×2 (06:38→21:23)
[2023-07-17 08:43] VITALS: PULSE 96
[2023-07-17] MEDS: APIXABAN 5 MG TABLET 10 MG PO ×2 (08:43→21:17)
[2023-07-17] MEDS: Metoprolol(XL)Succ 50 MG Tablet PO (08:43)
[2023-07-17] MEDS: Lisinopril 20 MG Tablet PO (08:44)
[2023-07-17] MEDS: Pantoprazole Sodium 40 MG Tablet PO (08:44)
[2023-07-17] MEDS: predniSONE 10 MG Tablet 25 MG PO (08:44)
[2023-07-17] MEDS: Potassium Chloride Oral Tablet 20 MEQ PO ×2 (08:44→16:40)
--- NOTE | 2023-07-17 08:52 | PN_ITS ---
Subjective Subjective Patient seen, examined. She is eating breakfast. She admits she felt a little down yesterday, fearful of what she could not do. She feels better today, she did better in therapy than she thought she could do. I reminded her if she improves by 1% per day, it is good progress. She was encouraged. Objective Data Objective Data Vital Signs: Vital Signs Temp Pulse Resp BP Pulse Ox O2 Del Method 98.2 F 96 16 103/50 L 98 Room Air 07/16/23 21:45 07/17/23 08:43 07/16/23 21:45 07/16/23 21:45 07/16/23 21:45 07/16/23 21:45 Oxygen Delivery Method Room Air Weight: 72.1 kg Body Mass Index (BMI) 25.5 Intake & Output: Intake and Output for Last 24 Hours 07/15/23 07/16/23 07/17/23 23:59 23:59 23:59 Intake Total 1320 / 1320 1450 / 1450 250 / 250 Output Total 600 / 600 Balance 720 / 720 1450 / 1450 250 / 250 Medical Nutrition Assessment Dietitian: Malnutrition Criteria Met Start: 07/14/23 12:03 Freq: Status: Active Protocol: Document 07/14/23 12:04 (Rec: 07/14/23 12:04 [id number]) Nutrition Malnutrition Evidence of Malnutrition Exists Yes Malnutrition (severe): Acute Illness/Injury Evidenced By Suboptimal Energy Intake ( Severe),Weight Loss (Severe) Clinical Problem Acute Disease or Injury Related Malnutrition Etiology severe, acute malnutrition related to inadequate energy intake w/ GI dysfunction Signs/Symptoms as evidenced by unintentional wt loss of 10% x 1 month, estimated PO intake meeting < 50% of estimated energy needs x 1 week Status Active Problem Recommendation Dietitian Recommendations/Changes regular diet as tolerated; will add 120mL ensure plus high protein 4x/day w/ medpass given evidence of acute malnutrition Lab / Micro Data Attestation: I reviewed the patient's lab results. 07/14/23 07:30 07/14/23 07:30 Physical Exam Const alert General Appearance: cooperative HEENT normocephalic Eyes PERRL and EOMs intact bilaterally Neck supple, no JVD and no carotid bruits Resp normal respiratory effort, normal air movement and clear to auscultation bilaterally Cardio regular rate and regular rhythm GI normal to inspection, nondistended, normoactive bowel sounds, non-tender and non-distended Extremity normal capillary refill Extremity Narrative: Left index DIP amputation. 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 * Debility - PT/OT. * Pain - Tylenol 1000mg q6 prn pain (1-5), Oxycodone 5mg q4 prn pain (6-10). * Bowel - senna/colace 2 tablets bid prn, Dulcolax 10mg pr x 1 prn, MOM 30ml po x 1 prn, Loperamide 2mg q6h prn. * Pulmonary embolism - Eliquis 10mg bid thru 07/18/2023, then 5mg bid. * Hyperlipidemia - Atorvastatin 40mg qhs. * Hypertension - Metoprolol succinate 50mg daily, Lisinopril 20mg daily. * Anxiety - Lorazepam 0.5mg bid prn. * Insomnia - Melatonin 3mg qhs prn. * Skin irritation - Calmoseptine topical tid. * Nausea - Zofran 8mg q8 prn, Promethazine 25mg q6 prn. * GERD - Pantoprazole 40mg daily. * Hypokalemia - KCL 20meq bidcm. * Immune checkpoint inhibitor induced pancolitis - Prednisone taper, consult Dr. Palma for repeat Remicade infusion, bloody diarrhea resolved. * Metastatic Malignant Melanoma - Further treatment per Dr. Palma. Capacity Capacity Assessment Tool Can the patient make a choice & communicate that choice?: Yes Can the patient understand benefits, risks and alternatives?: Yes Can the patient make a logical, rational choice?: Yes Is the choice the patient makes consistent w/ their values?: Yes Is there an impending, emergent risk to the patient?: No Does the patient have an Advance Directive?: No Is there a Surrogate Available?: Yes i.e. HCPOA: Yes i.e. close relative (spouse, child, parent, sibling)?: Yes
[2023-07-17 09:02] VITALS: BP 143/68; PULSE 86; RESP 16; TEMP 36.6; O2SAT 98
[2023-07-17] MEDS: Ensure Plus High Protein 120 ML LIQUID PO ×2 (13:54→16:40)
[2023-07-17 19:24] VITALS: BP 107/51; PULSE 93; RESP 16; TEMP 36.6; O2SAT 96
[2023-07-17] MEDS: Atorvastatin Calcium 40 MG Tablet PO (21:17)
[2023-07-17] MEDS: oxyCODONE 5 MG Tablet PO (21:22)
[2023-07-17] MEDS: Senna/Docusate Sodium 1 Tablet 2 TABLET PO (21:29)
[2023-07-18] MEDS: Miconazole Nitrate 43 GM Bottle 1 APPLIC TOPICAL ×2 (05:14→20:28)
[2023-07-18] MEDS: Menthol/Lanolin/Calamine/Znox 113 GM Tube 1 APPLIC TOPICAL ×2 (05:14→20:28)
[2023-07-18 07:30] VITALS: BP 124/63; PULSE 81; RESP 16; TEMP 36.6; O2SAT 100
[2023-07-18 08:33] VITALS: BP 124/63; PULSE 81
[2023-07-18] MEDS: Metoprolol(XL)Succ 50 MG Tablet PO (08:33)
[2023-07-18] MEDS: Potassium Chloride Oral Tablet 20 MEQ PO ×2 (08:34→17:27)
[2023-07-18] MEDS: predniSONE 10 MG Tablet 25 MG PO (08:34)
[2023-07-18] MEDS: Lisinopril 20 MG Tablet PO (08:34)
[2023-07-18] MEDS: Senna/Docusate Sodium 1 Tablet 2 TABLET PO (08:34)
[2023-07-18] MEDS: APIXABAN 5 MG TABLET 10 MG PO ×2 (08:34→20:27)
[2023-07-18] MEDS: Pantoprazole Sodium 40 MG Tablet PO (08:35)
--- NOTE | 2023-07-18 08:49 | CASEMGMT ---
Social Work SW phoned to update that Medicare approved 16 days with a DC 07/29. Will Team 07/23 to determine oncology treatment plan and DC plan. MONY Moise [employer] ARCH[employer]ECT
[2023-07-18] MEDS: Ensure Plus High Protein 120 ML LIQUID PO ×3 (13:49→20:27)
--- NOTE | 2023-07-18 14:23 | PN_ITS ---
Subjective Subjective Patient seen, examined. She ate her breakfast, she continues to improve with therapy. She is getting better. Objective Data Objective Data Vital Signs: Vital Signs Temp Pulse Resp BP Pulse Ox O2 Del Method 97.8 F 81 16 124/63 H 100 Room Air 07/18/23 07:30 07/18/23 08:33 07/18/23 07:30 07/18/23 08:33 07/18/23 07:30 07/18/23 07:30 Oxygen Delivery Method Room Air Weight: 72.1 kg Body Mass Index (BMI) 25.5 Intake & Output: Intake and Output for Last 24 Hours 07/16/23 07/17/23 07/18/23 23:59 23:59 23:59 Intake Total 1450 / 1450 910 / 1030 1020 / 1020 Output Total 200 / 200 Balance 1450 / 1450 710 / 830 1020 / 1020 Medical Nutrition Assessment Dietitian: Malnutrition Criteria Met Start: 07/14/23 12:03 Freq: Status: Active Protocol: Document 07/18/23 11:35 AG (Rec: 07/18/23 11:35 [id number]) Nutrition Malnutrition Evidence of Malnutrition Exists Yes Malnutrition (severe): Acute Illness/Injury Evidenced By Suboptimal Energy Intake ( Severe),Weight Loss (Severe) Clinical Problem Acute Disease or Injury Related Malnutrition Etiology severe, acute malnutrition related to inadequate energy intake w/ GI dysfunction Signs/Symptoms as evidenced by unintentional wt loss of 10% x 1 month, estimated PO intake meeting < 50% of estimated energy needs x 1 week Status Active Problem Recommendation Dietitian Recommendations/Changes regular diet as tolerated; continue to offer 120mL ensure plus high protein 4x/day w/ medpass given evidence of acute malnutrition Lab / Micro Data Attestation: I reviewed the patient's lab results. 07/14/23 07:30 07/14/23 07:30 Physical Exam Const alert General Appearance: cooperative HEENT normocephalic Eyes PERRL and EOMs intact bilaterally Neck supple, no JVD and no carotid bruits Resp normal respiratory effort, normal air movement and clear to auscultation bilaterally Cardio regular rate and regular rhythm GI normal to inspection, nondistended, normoactive bowel sounds, non-tender and non-distended Extremity normal capillary refill Extremity Narrative: Left index DIP amputation. 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 * Debility - PT/OT. * Pain - Tylenol 1000mg q6 prn pain (1-5), Oxycodone 5mg q4 prn pain (6-10). * Bowel - senna/colace 2 tablets bid prn, Dulcolax 10mg pr x 1 prn, MOM 30ml po x 1 prn, Loperamide 2mg q6h prn. * Pulmonary embolism - Eliquis 10mg bid thru 07/18/2023, then 5mg bid. * Hyperlipidemia - Atorvastatin 40mg qhs. * Hypertension - Metoprolol succinate 50mg daily, Lisinopril 20mg daily. * Anxiety - Lorazepam 0.5mg bid prn. * Insomnia - Melatonin 3mg qhs prn. * Skin irritation - Calmoseptine topical tid. * Nausea - Zofran 8mg q8 prn, Promethazine 25mg q6 prn. * GERD - Pantoprazole 40mg daily. * Hypokalemia - KCL 20meq bidcm. * Immune checkpoint inhibitor induced pancolitis - Prednisone taper, consult Dr. Palma for repeat Remicade infusion, bloody diarrhea resolved. * Metastatic Malignant Melanoma - Further treatment per Dr. Palma. Capacity Capacity Assessment Tool Can the patient make a choice & communicate that choice?: Yes Can the patient understand benefits, risks and alternatives?: Yes Can the patient make a logical, rational choice?: Yes Is the choice the patient makes consistent w/ their values?: Yes Is there an impending, emergent risk to the patient?: No Does the patient have an Advance Directive?: No Is there a Surrogate Available?: Yes i.e. HCPOA: Yes i.e. close relative (spouse, child, parent, sibling)?: Yes
[2023-07-18 20:25] VITALS: BP 117/5; PULSE 95; RESP 18; TEMP 36.4; O2SAT 96
[2023-07-18] MEDS: Atorvastatin Calcium 40 MG Tablet PO (20:27)
--- NOTE | 2023-07-19 04:10 | NURSING ---
Reviewed and agree with Jenniffer ABBOTT, documentation and assessment charting.
[2023-07-19] MEDS: Miconazole Nitrate 43 GM Bottle 1 APPLIC TOPICAL (05:39)
[2023-07-19] MEDS: Menthol/Lanolin/Calamine/Znox 113 GM Tube 1 APPLIC TOPICAL ×2 (05:39→20:53)
[2023-07-19] MEDS: predniSONE 10 MG Tablet 25 MG PO (08:27)
[2023-07-19 08:29] VITALS: PULSE 99
[2023-07-19] MEDS: Potassium Chloride Oral Tablet 20 MEQ PO ×2 (08:29→16:58)
[2023-07-19] MEDS: Lisinopril 20 MG Tablet PO (08:29)
[2023-07-19] MEDS: APIXABAN 5 MG TABLET PO ×2 (08:29→20:52)
[2023-07-19] MEDS: Metoprolol(XL)Succ 50 MG Tablet PO (08:29)
[2023-07-19] MEDS: Pantoprazole Sodium 40 MG Tablet PO (08:29)
[2023-07-19 09:51] VITALS: BP 128/71; PULSE 99; RESP 16; TEMP 36.6; O2SAT 98
[2023-07-19] MEDS: Ensure Plus High Protein 120 ML LIQUID PO (16:58)
[2023-07-19 20:15] VITALS: BP 128/61; PULSE 88; RESP 16; TEMP 36.5; O2SAT 96
[2023-07-19] MEDS: Atorvastatin Calcium 40 MG Tablet PO (20:51)
[2023-07-19] MEDS: Acetaminophen 500 MG Tablet 1000 MG PO (20:51)
[2023-07-19] MEDS: MELATONIN 3 MG TABLET PO (20:52)
[2023-07-19] MEDS: Senna/Docusate Sodium 1 Tablet 2 TABLET PO (20:56)
[2023-07-19] MEDS: oxyCODONE 5 MG Tablet PO (23:42)
[2023-07-20 06:00] VITALS: BMI 24.1
[2023-07-20] MEDS: Menthol/Lanolin/Calamine/Znox 113 GM Tube 1 APPLIC TOPICAL ×2 (06:55→20:40)
[2023-07-20 07:47] VITALS: PULSE 74
[2023-07-20] MEDS: predniSONE 10 MG Tablet 25 MG PO (07:47)
[2023-07-20] MEDS: Lisinopril 20 MG Tablet PO (07:47)
[2023-07-20] MEDS: Metoprolol(XL)Succ 50 MG Tablet PO (07:47)
[2023-07-20] MEDS: Pantoprazole Sodium 40 MG Tablet PO (07:47)
[2023-07-20] MEDS: APIXABAN 5 MG TABLET PO ×2 (07:48→20:36)
[2023-07-20] MEDS: Potassium Chloride Oral Tablet 20 MEQ PO ×2 (07:48→17:06)
[2023-07-20 10:00] VITALS: BP 124/58; PULSE 74; RESP 16; TEMP 36.4; O2SAT 99
[2023-07-20] MEDS: Acetaminophen 500 MG Tablet 1000 MG PO ×2 (11:11→20:35)
[2023-07-20] MEDS: Ensure Plus High Protein 120 ML LIQUID PO ×2 (14:35→18:11)
[2023-07-20 20:25] VITALS: BP 124/54; PULSE 85; RESP 17; TEMP 36.4; O2SAT 99
[2023-07-20] MEDS: Senna/Docusate Sodium 1 Tablet 2 TABLET PO (20:34)
[2023-07-20] MEDS: MELATONIN 3 MG TABLET PO (20:37)
[2023-07-20] MEDS: Atorvastatin Calcium 40 MG Tablet PO (20:38)
[2023-07-21] MEDS: Menthol/Lanolin/Calamine/Znox 113 GM Tube 1 APPLIC TOPICAL ×2 (05:04→21:28)
[2023-07-21] MEDS: Miconazole Nitrate 43 GM Bottle 1 APPLIC TOPICAL ×2 (05:05→21:30)
[2023-07-21 07:30] VITALS: BP 131/70; PULSE 71; RESP 18; TEMP 36.5; O2SAT 98
[2023-07-21] MEDS: predniSONE 10 MG Tablet 25 MG PO (07:56)
[2023-07-21] MEDS: Potassium Chloride Oral Tablet 20 MEQ PO ×2 (07:56→16:24)
[2023-07-21 09:02] VITALS: PULSE 114
--- NOTE | 2023-07-21 09:09 | NURSING ---
Pt notes that she is feeling jittery. She notes she often feels like this after working hard with therapy though she has not yet worked with them today. Pulse 114 regular. She notes she would like to rest in chair for a while. Will continue to monitor.
[2023-07-21] MEDS: APIXABAN 5 MG TABLET PO ×2 (09:53→21:22)
[2023-07-21] MEDS: Lisinopril 20 MG Tablet PO (09:53)
[2023-07-21 09:54] VITALS: PULSE 112
[2023-07-21] MEDS: Pantoprazole Sodium 40 MG Tablet PO (09:54)
[2023-07-21] MEDS: Ensure Plus High Protein 120 ML LIQUID PO ×3 (09:54→18:48)
[2023-07-21] MEDS: Metoprolol(XL)Succ 50 MG Tablet PO (09:54)
[2023-07-21] MEDS: Acetaminophen 500 MG Tablet 1000 MG PO (10:00)
[2023-07-21] MEDS: Magnesium Hydroxide 30 ML UDC PO (14:11)
[2023-07-21] MEDS: Atorvastatin Calcium 40 MG Tablet PO (21:28)
[2023-07-21 21:29] VITALS: BP 127/69; PULSE 84; RESP 16; TEMP 36.6; O2SAT 97
[2023-07-21] MEDS: MELATONIN 3 MG TABLET PO (21:34)
[2023-07-22] MEDS: Miconazole Nitrate 43 GM Bottle 1 APPLIC TOPICAL (04:42)
[2023-07-22] MEDS: Menthol/Lanolin/Calamine/Znox 113 GM Tube 1 APPLIC TOPICAL ×2 (04:42→21:35)
[2023-07-22 07:21] VITALS: BP 143/69; PULSE 70; RESP 16; TEMP 36.2; O2SAT 96
[2023-07-22] MEDS: Potassium Chloride Oral Tablet 20 MEQ PO ×2 (07:57→16:26)
[2023-07-22] MEDS: predniSONE 10 MG Tablet 25 MG PO (07:57)
[2023-07-22] MEDS: Pantoprazole Sodium 40 MG Tablet PO (10:26)
[2023-07-22] MEDS: Lisinopril 20 MG Tablet PO (10:26)
[2023-07-22 10:27] VITALS: PULSE 85
[2023-07-22] MEDS: APIXABAN 5 MG TABLET PO ×2 (10:27→21:29)
[2023-07-22] MEDS: Metoprolol(XL)Succ 50 MG Tablet PO (10:27)
[2023-07-22] MEDS: Ensure Plus High Protein 120 ML LIQUID PO ×3 (16:26→21:35)
[2023-07-22 20:00] VITALS: BP 112/57; PULSE 95; RESP 20; TEMP 36.9; O2SAT 96
[2023-07-22] MEDS: Atorvastatin Calcium 40 MG Tablet PO (21:29)
[2023-07-22] MEDS: MELATONIN 3 MG TABLET PO (21:36)
[2023-07-23] MEDS: Menthol/Lanolin/Calamine/Znox 113 GM Tube 1 APPLIC TOPICAL ×2 (05:09→21:20)
[2023-07-23 07:23] VITALS: BP 124/68; PULSE 84; RESP 18; TEMP 36.1; O2SAT 97
[2023-07-23 07:51] VITALS: PULSE 84
[2023-07-23] MEDS: Metoprolol(XL)Succ 50 MG Tablet PO (07:51)
[2023-07-23] MEDS: Ensure Plus High Protein 120 ML LIQUID PO ×3 (07:51→17:03)
[2023-07-23] MEDS: APIXABAN 5 MG TABLET PO ×2 (07:51→21:16)
[2023-07-23] MEDS: Lisinopril 20 MG Tablet PO (07:51)
[2023-07-23] MEDS: predniSONE 10 MG Tablet 25 MG PO (07:52)
[2023-07-23] MEDS: Pantoprazole Sodium 40 MG Tablet PO (07:52)
[2023-07-23] MEDS: Potassium Chloride Oral Tablet 20 MEQ PO ×2 (07:52→17:03)
--- NOTE | 2023-07-23 08:47 | CASEMGMT ---
Social Work IDT met with patient and for Team meeting. Discussed patient's progress in PT/OT/SN. Educated to Medicare approval of 16 days with DC 07/29. Discussed readiness to DC home. and pt both expressed concerns that pt may not be ready to DC home at this time. However, pt has scheduled follow up treatment with Dr. Palma on 07/30 and 07/31. SW educated to not being able to puruse that treatment during care in a SNF. Both expressed understanding. Suggested contact Dr. Palma to discuss postponing treatment for pt to DC to a SNF for more therapy. agreeable. PT to practice slideboard transfers and scheduled family training and car tx 07/25 to determine DC plan. SW did provide [facility] SNF list with quality and resource data via [employer] Guide to . Educated to Medicare benefit in SNF. SW will continue to follow for DC planning. MONY MoiseW
[2023-07-23] MEDS: Acetaminophen 500 MG Tablet 1000 MG PO ×2 (11:03→21:15)
--- NOTE | 2023-07-23 19:11 | PN_ITS ---
Subjective Subjective Patient seen during IDT rounds. Patient's Timbo present. Patient's limitation is standing up from sitting. Once standing, she walks well. Discharge planned for 07/29/2023. Patient and asking realistic questions about discharge. Patient seeing Dr. Palma early next week, may receive another dose of infliximab for colitis. I let them know the infliximab may not be necessary since her bloody diarrhea has stopped, and would be less like to set her back compared to the treatment she received for malignant metastatic melanoma. Objective Data Objective Data Vital Signs: Vital Signs Temp Pulse Resp BP Pulse Ox O2 Del Method 97.0 F L 84 18 124/68 H 97 Room Air 07/23/23 07:23 07/23/23 07:51 07/23/23 07:23 07/23/23 07:23 07/23/23 07:23 07/23/23 07:23 Oxygen Delivery Method Room Air Weight: 68.209 kg Body Mass Index (BMI) 24.1 Intake & Output: Intake and Output for Last 24 Hours 07/21/23 07/22/23 07/23/23 23:59 23:59 23:59 Intake Total 1360 / 1360 1650 / 1850 580 / 580 Output Total 1000 / 1000 1000 / 1000 575 / 575 Balance 360 / 360 650 / 850 5 / 5 Medical Nutrition Assessment Dietitian: Malnutrition Criteria Met Start: 07/14/23 12:03 Freq: Status: Active Protocol: Document 07/18/23 11:35 AG (Rec: 07/18/23 11:35 [id number]) Nutrition Malnutrition Evidence of Malnutrition Exists Yes Malnutrition (severe): Acute Illness/Injury Evidenced By Suboptimal Energy Intake ( Severe),Weight Loss (Severe) Clinical Problem Acute Disease or Injury Related Malnutrition Etiology severe, acute malnutrition related to inadequate energy intake w/ GI dysfunction Signs/Symptoms as evidenced by unintentional wt loss of 10% x 1 month, estimated PO intake meeting < 50% of estimated energy needs x 1 week Status Active Problem Recommendation Dietitian Recommendations/Changes regular diet as tolerated; continue to offer 120mL ensure plus high protein 4x/day w/ medpass given evidence of acute malnutrition Lab / Micro Data Attestation: I reviewed the patient's lab results. 07/14/23 07:30 07/14/23 07:30 Physical Exam Const alert General Appearance: cooperative HEENT normocephalic Eyes PERRL and EOMs intact bilaterally Neck supple, no JVD and no carotid bruits Resp normal respiratory effort, normal air movement and clear to auscultation bilaterally Cardio regular rate and regular rhythm GI normal to inspection, nondistended, normoactive bowel sounds, non-tender and non-distended Extremity normal capillary refill Extremity Narrative: Left index DIP amputation. 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 * Debility - PT/OT. * Pain - Tylenol 1000mg q6 prn pain (1-5), Oxycodone 5mg q4 prn pain (6-10). * Bowel - senna/colace 2 tablets bid prn, Dulcolax 10mg pr x 1 prn, MOM 30ml po x 1 prn, Loperamide 2mg q6h prn. * Pulmonary embolism - Eliquis 10mg bid thru 07/18/2023, then 5mg bid. * Hyperlipidemia - Atorvastatin 40mg qhs. * Hypertension - Metoprolol succinate 50mg daily, Lisinopril 20mg daily. * Anxiety - Lorazepam 0.5mg bid prn. * Insomnia - Melatonin 3mg qhs prn. * Skin irritation - Calmoseptine topical tid. * Nausea - Zofran 8mg q8 prn, Promethazine 25mg q6 prn. * GERD - Pantoprazole 40mg daily. * Hypokalemia - KCL 20meq bidcm. * Immune checkpoint inhibitor induced pancolitis - Prednisone 35mg daily thru 08/23/2023, seeing Dr. Palma early next week to consider Remicade infusion, bloody diarrhea resolved. * Metastatic Malignant Melanoma - Further treatment per Dr. Palma.
[2023-07-23 20:45] VITALS: BMI 24.1
[2023-07-23] MEDS: MELATONIN 3 MG TABLET PO (21:14)
[2023-07-23] MEDS: Atorvastatin Calcium 40 MG Tablet PO (21:16)
[2023-07-23] MEDS: Miconazole Nitrate 43 GM Bottle 1 APPLIC TOPICAL (21:22)
[2023-07-23 21:32] VITALS: BP 119/59; PULSE 91; RESP 16; TEMP 36.6; O2SAT 96
[2023-07-23 21:33] VITALS: O2SAT 96
--- NOTE | 2023-07-24 01:44 | NURSING ---
Reviewed and agree with Ian ABBOTT, documentation and assessment charting.
[2023-07-24] MEDS: Miconazole Nitrate 43 GM Bottle 1 APPLIC TOPICAL ×2 (05:19→19:48)
[2023-07-24] MEDS: Menthol/Lanolin/Calamine/Znox 113 GM Tube 1 APPLIC TOPICAL ×2 (05:19→19:48)
[2023-07-24 07:43] VITALS: BP 130/61; PULSE 76; RESP 18; TEMP 36.2; O2SAT 100
[2023-07-24 08:02] VITALS: PULSE 76
[2023-07-24] MEDS: Metoprolol(XL)Succ 50 MG Tablet PO (08:02)
[2023-07-24] MEDS: APIXABAN 5 MG TABLET PO ×2 (08:02→19:47)
[2023-07-24] MEDS: Potassium Chloride Oral Tablet 20 MEQ PO ×2 (08:02→17:33)
[2023-07-24] MEDS: Lisinopril 20 MG Tablet PO (08:02)
[2023-07-24] MEDS: Pantoprazole Sodium 40 MG Tablet PO (08:02)
[2023-07-24] MEDS: predniSONE 10 MG Tablet 25 MG PO (08:03)
[2023-07-24] MEDS: Ensure Plus High Protein 120 ML LIQUID PO ×3 (08:03→17:33)
--- NOTE | 2023-07-24 08:22 | PN_ITS ---
Subjective Subjective Patient seen, examined. She is planning family training tomorrow, sliding board transfers into car. She is anxious about going home 07/29/2023. I reassured her she still has time to continue to improve, and IDT will ensure a safe discharge. Objective Data Objective Data Vital Signs: Vital Signs Temp Pulse Resp BP Pulse Ox O2 Del Method 97.2 F L 76 18 130/61 H 100 Room Air 07/24/23 07:43 07/24/23 08:02 07/24/23 07:43 07/24/23 07:43 07/24/23 07:43 07/24/23 07:43 Oxygen Delivery Method Room Air Weight: 68.209 kg Body Mass Index (BMI) 24.1 Intake & Output: Intake and Output for Last 24 Hours 07/22/23 07/23/23 07/24/23 23:59 23:59 23:59 Intake Total 1650 / 1850 780 / 780 Output Total 1000 / 1000 725 / 725 200 / 200 Balance 650 / 850 55 / 55 -200 / -200 Medical Nutrition Assessment Dietitian: Malnutrition Criteria Met Start: 07/14/23 12:03 Freq: Status: Active Protocol: Document 07/18/23 11:35 AG (Rec: 07/18/23 11:35 [id number]) Nutrition Malnutrition Evidence of Malnutrition Exists Yes Malnutrition (severe): Acute Illness/Injury Evidenced By Suboptimal Energy Intake ( Severe),Weight Loss (Severe) Clinical Problem Acute Disease or Injury Related Malnutrition Etiology severe, acute malnutrition related to inadequate energy intake w/ GI dysfunction Signs/Symptoms as evidenced by unintentional wt loss of 10% x 1 month, estimated PO intake meeting < 50% of estimated energy needs x 1 week Status Active Problem Recommendation Dietitian Recommendations/Changes regular diet as tolerated; continue to offer 120mL ensure plus high protein 4x/day w/ medpass given evidence of acute malnutrition Lab / Micro Data Attestation: I reviewed the patient's lab results. 07/14/23 07:30 07/14/23 07:30 Physical Exam Const alert General Appearance: cooperative HEENT normocephalic Eyes PERRL and EOMs intact bilaterally Neck supple, no JVD and no carotid bruits Resp normal respiratory effort, normal air movement and clear to auscultation bilaterally Cardio regular rate and regular rhythm GI normal to inspection, nondistended, normoactive bowel sounds, non-tender and non-distended Extremity normal capillary refill Extremity Narrative: Left index DIP amputation. 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 * Debility - PT/OT. * Pain - Tylenol 1000mg q6 prn pain (1-5), Oxycodone 5mg q4 prn pain (6-10). * Bowel - senna/colace 2 tablets bid prn, Dulcolax 10mg pr x 1 prn, MOM 30ml po x 1 prn, Loperamide 2mg q6h prn. * Pulmonary embolism - Eliquis 10mg bid thru 07/18/2023, then 5mg bid. * Hyperlipidemia - Atorvastatin 40mg qhs. * Hypertension - Metoprolol succinate 50mg daily, Lisinopril 20mg daily. * Anxiety - Lorazepam 0.5mg bid prn. * Insomnia - Melatonin 3mg qhs prn. * Skin irritation - Calmoseptine topical tid. * Nausea - Zofran 8mg q8 prn, Promethazine 25mg q6 prn. * GERD - Pantoprazole 40mg daily. * Hypokalemia - KCL 20meq bidcm. * Immune checkpoint inhibitor induced pancolitis - Prednisone 35mg daily thru 08/23/2023, seeing Dr. Palma early next week to consider Remicade infusion, bloody diarrhea resolved. * Metastatic Malignant Melanoma - Further treatment per Dr. Palma. Capacity Capacity Assessment Tool Can the patient make a choice & communicate that choice?: Yes Can the patient understand benefits, risks and alternatives?: Yes Can the patient make a logical, rational choice?: Yes Is the choice the patient makes consistent w/ their values?: Yes Is there an impending, emergent risk to the patient?: No Does the patient have an Advance Directive?: No Is there a Surrogate Available?: Yes i.e. HCPOA: Yes i.e. close relative (spouse, child, parent, sibling)?: Yes
[2023-07-24 11:37] VITALS: BMI 24.1
[2023-07-24] MEDS: Senna/Docusate Sodium 1 Tablet 2 TABLET PO (17:38)
[2023-07-24 19:37] VITALS: BP 109/65; PULSE 87; RESP 17; TEMP 36.8; O2SAT 97
[2023-07-24] MEDS: Atorvastatin Calcium 40 MG Tablet PO (19:47)
[2023-07-24] MEDS: MELATONIN 3 MG TABLET PO (19:52)
[2023-07-24 20:50] VITALS: BMI 24.1
[2023-07-24] MEDS: Acetaminophen 500 MG Tablet 1000 MG PO (23:25)
[2023-07-25] MEDS: Menthol/Lanolin/Calamine/Znox 113 GM Tube 1 APPLIC TOPICAL ×2 (05:34→20:11)
[2023-07-25] MEDS: Miconazole Nitrate 43 GM Bottle 1 APPLIC TOPICAL (05:34)
[2023-07-25 07:30] VITALS: BP 134/68; PULSE 80; RESP 16; TEMP 37; O2SAT 100
[2023-07-25] MEDS: Potassium Chloride Oral Tablet 20 MEQ PO ×2 (08:03→17:30)
[2023-07-25] MEDS: predniSONE 10 MG Tablet 25 MG PO (08:03)
[2023-07-25 08:04] VITALS: PULSE 80
[2023-07-25] MEDS: Metoprolol(XL)Succ 50 MG Tablet PO (08:04)
[2023-07-25] MEDS: Pantoprazole Sodium 40 MG Tablet PO (08:04)
[2023-07-25] MEDS: APIXABAN 5 MG TABLET PO ×2 (08:04→20:12)
[2023-07-25] MEDS: Lisinopril 20 MG Tablet PO (08:05)
[2023-07-25] MEDS: Ensure Plus High Protein 120 ML LIQUID PO ×3 (11:41→20:12)
--- NOTE | 2023-07-25 12:01 | EX.PCM.PN.RE ---
Subjective Subjective Patient was admitted for daily rehab following a hospital stay for bilateral PE, GI bleed and metastatic melanoma. No events overnight. The patient reports overall she is doing well. She does feel a little anxious about the thought of going home, but is also anxious to get home. She has family training scheduled for later today and feels that she did well with therapy this morning. She denies any pain, is eating well and moving her bowels. She has questions related to her diet upon discharge. She has no other questions or concerns at this time. Objective Data Objective Data Vital Signs: Vital Signs Temp Pulse Resp BP Pulse Ox O2 Del Method 98.6 F 80 16 134/68 H 100 Room Air 07/25/23 07:30 07/25/23 08:04 07/25/23 07:30 07/25/23 07:30 07/25/23 07:30 07/25/23 07:30 Oxygen Delivery Method Room Air Weight: 150 lb 6 oz Body Mass Index (BMI) 24.1 Intake & Output: Intake and Output for Last 24 Hours 07/23/23 07/24/23 07/25/23 23:59 23:59 23:59 Intake Total 780 / 780 720 / 720 Output Total 725 / 725 500 / 500 300 / 300 Balance 55 / 55 220 / 220 -300 / -300 Medical Nutrition Assessment Dietitian: Malnutrition Criteria Met Start: 07/14/23 12:03 Freq: Status: Active Protocol: Document 07/24/23 13:30 AG (Rec: 07/24/23 13:30 AG Desktop) Nutrition Malnutrition Evidence of Malnutrition Exists Yes Malnutrition (severe): Acute Illness/Injury Evidenced By Suboptimal Energy Intake ( Severe),Weight Loss (Severe) Clinical Problem Acute Disease or Injury Related Malnutrition Etiology severe, acute malnutrition related to inadequate energy intake w/ GI dysfunction Signs/Symptoms as evidenced by unintentional wt loss of 10% x 1 month, 11. 941kg/15% < 2 months, estimated PO intake meeting < 50% of estimated energy needs x 1 week Status Active Problem Recommendation Dietitian Recommendations/Changes regular diet as tolerated; continue to offer 120mL ensure plus high protein 4x/day w/ medpass given evidence of acute malnutrition Lab / Micro Data Attestation: I reviewed the patient's lab results. 07/14/23 07:30 07/14/23 07:30 Indicators for Scoring Admitted with or Primary Diagnosis of CVA/Stroke: No Hx of CVA/Stroke: Yes Modified Cindy Score MRS Score at time of Evaluation: 3-Moderate disability Physical Exam Const alert, oriented x3, no apparent distress and well nourished Constitutional Narrative: Sitting up in the chair General Appearance: cooperative and comfortable; Negative for in distress, ill appearing or diaphoretic Orientation / Consciousness: awake, oriented to person, oriented to place and oriented to time Exam Limitations: Negative for altered mental status HEENT normocephalic, head/scalp atraumatic and oropharynx normal Head and Scalp: normocephalic and atraumatic Face and Sinus: normal facial exam Eyes General Eye: normal appearance of both eyes Chest inspection of chest normal Chest: abnormal inspection of the chest and symmetrical chest wall rise Resp normal respiratory effort, normal air movement, no use of accessory muscles and clear to auscultation bilaterally Effort and Inspection: able to speak in complete sentences and symmetric chest movement; Negative for respiratory distress or audible wheezes Auscultation: clear to auscultation bilaterally Cardio regular rate, regular rhythm and no murmurs Rate: regular rate Rhythm: regular rhythm Heart Sounds: Negative for murmur GI normal to inspection, nondistended, normoactive bowel sounds, soft to palpation, non-tender and non-distended Auscultation: normoactive bowel sounds Palpation: soft; Negative for tender or guarding Extremity normal to inspection Extremity Narrative: Mild bruising from previous IV sites. Healing well. General Extremity: Negative for edema Skin no rashes or lesions noted General Skin Exam: no breakdown Lesions: no lesions Rashes: no rashes Neuro oriented x3 Sensorium / Orientation: awake, alert, oriented to person, oriented to place and oriented to time Speech: speech normal Psych mental status grossly normal, cooperative, affect normal and speech normal Appearance: grossly normal Attitude: calm Assessment & Plan Assessment/Plan (1) Debility: PLAN: Will continue with PT/OT and follow up on findings and recommendations. Family training scheduled for this afternoon. Likely d/c planned for 07/29. Continue with PRN pain management, bowel regimen and fall precautions. (2) Bilateral pulmonary embolism: PLAN: No current symptoms. Continue with eliquis 5mg BID. (3) Pancolitis: PLAN: No current symptoms. Patient was treated with IV steroids and transitioned to prednisone. Will continue current management. She is trying to reintroduce food to her diet as able. (4) Bloody diarrhea: PLAN: Resolved. Patient reports her bowels are currently moving well without complications. 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 Palma, upon discharge from inpatient rehab for further treatment and management. (6) Hypertension: QUALIFIERS: Hypertension type: primary hypertension Qualified Code(s): I10 - Essential (primary) hypertension PLAN: Blood pressure shows good control. Will continue current management and monitor. (7) Hyperlipidemia: QUALIFIERS: Hyperlipidemia type: mixed hyperlipidemia Qualified Code(s): E78.2 - Mixed hyperlipidemia PLAN: Stable. Continue home medications. (8) GERD (gastroesophageal reflux disease): QUALIFIERS: Esophagitis presence: esophagitis presence not specified Qualified Code(s): K21.9 - Gastro-esophageal reflux disease without esophagitis PLAN: Stable. Continue current medications. (9) Hypokalemia: PLAN: Most recent potassium level was in normal range. Will continue with current dosing and monitor. (10) Seizure: PLAN: History of seizures. No active seizure since 2019. Patient follows with neurology and is not currently on medications. (11) Stroke/cerebrovascular accident: QUALIFIERS: CVA mechanism: unspecified Qualified Code(s): I63.9 - Cerebral infarction, unspecified PLAN: History of stroke in 2020. Aspirin on hold due to bleed as above. Continue statin and will continue to monitor. She follows with neurology. Charges/Coding Visit Charges Inpatient E&M: 01214 Subs Hosp L2
--- NOTE | 2023-07-25 14:44 | CASEMGMT ---
Social Work SW received call from after family training today. Pt and are electing for pt to DC home. Requesting skilled HHC. Pt offered skilled HHC list for to review. denied and stated he would like to use [facility]. Pt has no DME needs. to transport. appreciative. SW phoned referral to [facility] for PT/OT. Plan: DC home with 07/29, [facility] PT/OT MONY MoiseW
[2023-07-25 19:33] VITALS: BP 122/62; PULSE 89; RESP 16; TEMP 36.3; O2SAT 96
[2023-07-25 19:55] VITALS: PULSE 89; RESP 16; O2SAT 96; BMI 24.1
[2023-07-25] MEDS: Atorvastatin Calcium 40 MG Tablet PO (20:12)
[2023-07-25] MEDS: Acetaminophen 500 MG Tablet 1000 MG PO (22:32)
[2023-07-25] MEDS: MELATONIN 3 MG TABLET PO (22:32)
[2023-07-26] MEDS: Menthol/Lanolin/Calamine/Znox 113 GM Tube 1 APPLIC TOPICAL ×2 (05:58→20:08)
[2023-07-26 08:09] VITALS: BP 138/56; PULSE 88; RESP 17; TEMP 36.3; O2SAT 99
[2023-07-26 09:05] VITALS: PULSE 86
[2023-07-26] MEDS: Metoprolol(XL)Succ 50 MG Tablet PO (09:05)
[2023-07-26] MEDS: APIXABAN 5 MG TABLET PO ×2 (09:05→20:07)
[2023-07-26] MEDS: Potassium Chloride Oral Tablet 20 MEQ PO ×2 (09:05→17:46)
[2023-07-26] MEDS: Pantoprazole Sodium 40 MG Tablet PO (09:05)
[2023-07-26] MEDS: predniSONE 10 MG Tablet 25 MG PO (09:05)
[2023-07-26] MEDS: Ensure Plus High Protein 120 ML LIQUID PO ×4 (09:06→20:09)
[2023-07-26] MEDS: Lisinopril 20 MG Tablet PO (09:06)
[2023-07-26] MEDS: Senna/Docusate Sodium 1 Tablet 2 TABLET PO (15:06)
[2023-07-26 15:23] VITALS: BMI 24.1
[2023-07-26 20:00] VITALS: BP 116/62; PULSE 86; PULSE 97; RESP 16; TEMP 36.8; O2SAT 97; BMI 24.1
[2023-07-26] MEDS: Atorvastatin Calcium 40 MG Tablet PO (20:07)
[2023-07-26] MEDS: Acetaminophen 500 MG Tablet 1000 MG PO (22:01)
[2023-07-26] MEDS: MELATONIN 3 MG TABLET PO (22:02)
[2023-07-27] MEDS: Menthol/Lanolin/Calamine/Znox 113 GM Tube 1 APPLIC TOPICAL ×2 (05:36→21:02)
[2023-07-27 06:00] VITALS: BMI 24.1
[2023-07-27] MEDS: APIXABAN 5 MG TABLET PO ×2 (07:53→21:02)
[2023-07-27] MEDS: predniSONE 10 MG Tablet 25 MG PO (07:53)
[2023-07-27 07:54] VITALS: PULSE 80
[2023-07-27] MEDS: Metoprolol(XL)Succ 50 MG Tablet PO (07:54)
[2023-07-27] MEDS: Lisinopril 20 MG Tablet PO (07:54)
[2023-07-27] MEDS: Potassium Chloride Oral Tablet 20 MEQ PO ×2 (07:54→17:04)
[2023-07-27] MEDS: Ensure Plus High Protein 120 ML LIQUID PO ×3 (07:54→21:02)
[2023-07-27] MEDS: Pantoprazole Sodium 40 MG Tablet PO (07:54)
[2023-07-27 08:10] VITALS: BP 132/69; PULSE 80; RESP 16; TEMP 36.3; O2SAT 97
--- NOTE | 2023-07-27 08:44 | EX.DISCHREH ---
Providers Date of Admission: 07/13/23 Primary Care Physician: Dr. Marvin Malloy MD Consultations 07/13/23 20:35 Consult: Oncology/Hematology Routine Consulting Provider: CCJed Hem/Onc Philip Reason for Consult: immunotherapy pancolitis, metastatic melanoma. 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: Status: Acute Code(s): C77.9 - Secondary and unspecified malignant neoplasm of lymph node, unspecified (6) Hypertension: Status: Chronic Code(s): I10 - Essential (primary) hypertension Qualifiers: Hypertension type: primary hypertension Qualified Code(s): I10 - Essential (primary) hypertension (7) Hyperlipidemia: Status: Chronic Code(s): E78.5 - Hyperlipidemia, unspecified Qualifiers: Hyperlipidemia type: mixed hyperlipidemia Qualified Code(s): E78.2 - Mixed hyperlipidemia (8) GERD (gastroesophageal reflux disease): Status: Chronic Code(s): K21.9 - Gastro-esophageal reflux disease without esophagitis Qualifiers: Esophagitis presence: esophagitis presence not specified Qualified Code(s): K21.9 - Gastro-esophageal reflux disease without esophagitis (9) Hypokalemia: Status: Acute Code(s): E87.6 - Hypokalemia (10) Seizure: Status: Acute Code(s): R56.9 - Unspecified convulsions (11) Stroke/cerebrovascular accident: Status: Acute Code(s): I63.9 - Cerebral infarction, unspecified Qualifiers: CVA mechanism: unspecified Qualified Code(s): I63.9 - Cerebral infarction, unspecified Plan 77 year old female with below past medical history significant for metastatic malignant melanoma, hospitalized for pulmonary embolism, immunotherapy induced colitis with bloody diarrhea, complicated by hypokalemia, admitted to for 3 hours daily rehabilitation, strengthening, prior to discharge home with . Debility - PT/OT. Pain - Tylenol 1000mg q6 prn pain (1-5), Oxycodone 5mg q4 prn pain (6-10). Bowel - senna/colace 2 tablets bid prn, Dulcolax 10mg pr x 1 prn, MOM 30ml po x 1 prn, Loperamide 2mg q6h prn. Pulmonary embolism - Eliquis 10mg bid thru 07/18/2023, then 5mg bid. Hyperlipidemia - Atorvastatin 40mg qhs. Hypertension - Metoprolol succinate 50mg daily, Lisinopril 20mg daily. Anxiety - Lorazepam 0.5mg bid prn. Insomnia - Melatonin 3mg qhs prn. Skin irritation - Calmoseptine topical tid. Nausea - Zofran 8mg q8 prn, Promethazine 25mg q6 prn. GERD - Pantoprazole 40mg daily. Hypokalemia - KCL 20meq bidcm. Immune checkpoint inhibitor induced pancolitis - Prednisone 35mg daily thru 08/23/2023, seeing Dr. Palma early next week to consider Remicade infusion, bloody diarrhea resolved. Metastatic Malignant Melanoma - Further treatment per Dr. Palma. Medications at Discharge Home Medications metoprolol succinate 50 mg tablet,extended release 24 hr 50 mg PO DAILY heart rate ##0 08/15/20 atorvastatin 40 mg tablet 40 mg PO DAILY cholesterol 09/24/20 melatonin 5 mg capsule 3 mg PO QHS PRN Sleep 10/26/20 lisinopril 20 mg tablet 20 mg PO DAILY blood pressure 07/13/23 menthol 0.44 %-zinc oxide 20.6 % topical ointment (Calmoseptine) 1 applic topical TID redness 07/13/23 acetaminophen 500 mg tablet 1,000 mg (2 x 500 mg) PO Q6H PRN PRN Pain Score 1-5 #0 tabs 07/27/23 apixaban 5 mg tablet (Eliquis) 5 mg PO BID 30 days #60 tabs 07/27/23 pantoprazole 40 mg tablet,delayed release 40 mg PO DAILY 30 days #30 tabs 07/27/23 potassium chloride 20 mEq tablet,extended release(part/cryst) (Klor-Con M) 20 meq PO BIDCM 30 days #60 tabs 07/27/23 prednisone 10 mg tablet 30 mg (3 x 10 mg) PO DAILYCM 30 days #90 tabs 07/27/23 Hospital Course Operations None Procedures None Summary of Care Provided Minutes Spent on Discharge: 35 Hospital Course: 77 year old female with below past medical history significant for metastatic malignant melanoma, hospitalized for pulmonary embolism, immunotherapy induced colitis with bloody diarrhea, complicated by hypokalemia, admitted to for 3 hours daily rehabilitation, strengthening, prior to discharge home with . Patient on Eliquis 5mg bid for pulmonary embolism. Discharge home with 07/29/2023, [facility] PT/OT. 07/27/2023 Patient c/o dysuria, UA, C+S ordered, results pending. Physical Exam Const alert General Appearance: cooperative HEENT normocephalic Eyes PERRL and EOMs intact bilaterally Neck supple, no JVD and no carotid bruits Resp normal respiratory effort, normal air movement and clear to auscultation bilaterally Cardio regular rate and regular rhythm GI normal to inspection, nondistended, normoactive bowel sounds, non-tender and non-distended Extremity normal capillary refill General Extremity: Negative for edema Skin no rashes or lesions noted General Skin Exam: no breakdown Psych affect normal Appearance: appropriate Medical Records Data Medical Nutrition Assessment Dietitian: Malnutrition Criteria Met Start: 07/14/23 12:03 Freq: Status: Active Protocol: Document 07/24/23 13:30 AG (Rec: 07/24/23 13:30 AG Desktop) Nutrition Malnutrition Evidence of Malnutrition Exists Yes Malnutrition (severe): Acute Illness/Injury Evidenced By Suboptimal Energy Intake ( Severe),Weight Loss (Severe) Clinical Problem Acute Disease or Injury Related Malnutrition Etiology severe, acute malnutrition related to inadequate energy intake w/ GI dysfunction Signs/Symptoms as evidenced by unintentional wt loss of 10% x 1 month, 11. 941kg/15% < 2 months, estimated PO intake meeting < 50% of estimated energy needs x 1 week Status Active Problem Recommendation Dietitian Recommendations/Changes regular diet as tolerated; continue to offer 120mL ensure plus high protein 4x/day w/ medpass given evidence of acute malnutrition Weight / BMI Weight Weight: 67.9 kg Body Mass Index (BMI) 24.1 ABG / Lab / Microbiology Data 07/14/23 07:30 07/14/23 07:30 Indicators for Scoring Admitted with or Primary Diagnosis of CVA/Stroke: No Hx of CVA/Stroke: Yes Modified [place] Score MRS Score at time of Evaluation: 3-Moderate disability D/C Instructions Discharge Diet: No restrictions Discharge Activity: Return to Normal Activity, May Shower and Use Walker Weight Bearing Status: Weight bearing as tolerated Call your doctor if you observe: Fever of 101 or Higher, Inability to urinate, Inability to have a bowel movement, Shortness of breath, Dizziness, Fainting spells, Swelling in the ankles, Chest pain and Uncontrolled pain Additional Instructions: Discharge home with 07/29/2023, [facility] PT/OT. 07/27/2023 Patient c/o dysuria, UA, C+S ordered, results pending. Meaningful Use Info Meaningful Use Diagnoses (Choose all that apply): None applicable Discharge Plan Admission Admit Date/Time: 07/13/23 14:18 Primary Reason for Your Visit: Debility. Attending Provider: Mike Valodvinos Chi Primary Care Provider: Marvin Malloy Consulting Providers: Wilman Santiago; Puma Celeste; Shelly Barillas; Santhosh Schaffer; Chuy Smith; Luis Francis; Ismael Palma Instructions Additional Instructions / Restrictions: Discharge home with 07/29/2023, [facility] PT/OT. 07/27/2023 Patient c/o dysuria, UA, C+S ordered, results pending. Discharge Orders/Prescriptions Prescriptions: New prednisone 10 mg Tablet 30 mg PO DAILYCM 30 Days Qty: 90 0RF acetaminophen 500 mg Tablet 1,000 mg PO Q6H PRN PRN (Reason: Pain Score 1-5) Qty: 0 0RF potassium chloride [Klor-Con M20] 20 mEq Tablet,Er Particles/Crystals 20 meq PO BIDCM 30 Days Qty: 60 0RF pantoprazole 40 mg Tablet,Delayed Release (Dr/Ec) 40 mg PO DAILY 30 Days Qty: 30 0RF Eliquis 5 mg Tablet 5 mg PO BID 30 Days Qty: 60 0RF Continued atorvastatin 40 mg tablet 40 mg PO DAILY melatonin 5 mg capsule 3 mg PO QHS PRN (Reason: Sleep) metoprolol succinate 50 MG tablet 50 mg PO DAILY Qty: 0 0RF Rx Instructions: Hold if heart rate less than 60/min menthol-zinc oxide [Calmoseptine] 0.44-20.6 % ointment 1 applic topical TID lisinopril 20 mg tablet 20 mg PO DAILY Discontinued aspirin 81 MG tablet,delayed release (DR/EC) 81 mg PO DAILY omeprazole 20 mg capsule,delayed release(DR/EC) 40 mg PO DAILY potassium chloride 20 mEq tablet,ER particles/crystals 20 meq PO BID Patient Comments: TAKE 1 TABLET BY MOUTH 2 TIMES A DAY apixaban 5 mg tablet 10 mg PO BID Rx Instructions: 2 tabs by mouth bid for 11 doses. then 5mg bid lorazepam [Ativan] 0.5 mg tablet 0.5 mg PO BID Rx Instructions: 1 tab by mouth bid prn for up to 7 days. started 07/12 pantoprazole [Protonix] 40 mg tablet,delayed release (DR/EC) 40 mg PO DAILY oxycodone 5 mg capsule 5 mg PO Q8H PRN (Reason: pain) promethazine 25 mg tablet 25 mg PO Q6H PRN (Reason: nausea) acetaminophen [Acetaminophen Extra Strength] 500 mg tablet 1,000 mg PO Q8H PRN PRN (Reason: pain) loperamide [Imodium A-D] 2 mg capsule 2 mg PO Q6H PRN (Reason: diarrhea) ondansetron 8 mg tablet,disintegrating 8 mg PO Q8H PRN (Reason: nausea and vomiting) valacyclovir 500 mg tablet 500 mg PO BID PRN (Reason: as directed) prednisone 10 mg tablet 10 mg PO .COMPLEX Rx Instructions: 40mg daily x5d,35mg daily x5d,30mg daily x5d,25mg daily x5d,20mg daily x5d, 15mg daily x5d,10mg daily x5d, 5mg daily x5d then stop Referrals / Follow Up: Ismael Palma DO [Med Staff - Active Staff] - 07/30/23 1:30 pm Marvin Malloy MD [Primary Care Provider] - Disposition Disposition (needs filled in before D/C Order can be placed): Home Health Service
[2023-07-27 13:49] VITALS: BMI 24.1
[2023-07-27 15:30] LABS: Mucous, Urine 0 SEEN /hpf (<or=2+); Red Blood Cells-Urine 0 SEEN /hpf (0-5); Squamous Epithelial Cells - UA 0 SEEN /hpf (5-10); White Blood Cells 0 SEEN /hpf (0-5)
[2023-07-27 15:39] LABS: Color, Urine Yellow (Yellow); Glucose, Dipstick Normal (Normal); Ketone-Dipstick Negative (Negative); Leukocyte Esterase-Dipstick 25 /ul (Negative); Nitrite-Dipstick Positive (Negative); Occult Blood-Urine Negative /ul (Negative); Protein-Dipstick Negative (Negative); Specific Gravity, Urine 1.015 (1.002-1.030); Urine Bilirubin Dipstick Negative (Negative); Urine Clarity Clear (Clear); Urine Urobilinogen Normal (Normal)
[2023-07-27 16:02] LABS: Bacteria 3+ /hpf (None Seen)
[2023-07-27] MEDS: Atorvastatin Calcium 40 MG Tablet PO (21:02)
[2023-07-27] MEDS: Ciprofloxacin 250 MG Tablet PO (21:02)
[2023-07-27 22:00] VITALS: BP 113/71; PULSE 86; RESP 18; TEMP 36.6; O2SAT 97
[2023-07-28] MEDS: MELATONIN 3 MG TABLET PO ×2 (00:05→22:08)
[2023-07-28] MEDS: Acetaminophen 500 MG Tablet 1000 MG PO ×2 (00:05→22:08)
[2023-07-28 01:09] VITALS: BMI 24.1
[2023-07-28] MEDS: Menthol/Lanolin/Calamine/Znox 113 GM Tube 1 APPLIC TOPICAL ×2 (05:09→22:10)
[2023-07-28 07:42] VITALS: BP 108/59; PULSE 80; RESP 17; TEMP 36.5; O2SAT 98
[2023-07-28 08:06] VITALS: PULSE 80
[2023-07-28] MEDS: Metoprolol(XL)Succ 50 MG Tablet PO (08:06)
[2023-07-28] MEDS: predniSONE 10 MG Tablet 25 MG PO (08:06)
[2023-07-28] MEDS: Potassium Chloride Oral Tablet 20 MEQ PO ×2 (08:06→17:00)
[2023-07-28] MEDS: APIXABAN 5 MG TABLET PO ×2 (08:06→22:09)
[2023-07-28] MEDS: Pantoprazole Sodium 40 MG Tablet PO (08:06)
[2023-07-28] MEDS: Ensure Plus High Protein 120 ML LIQUID PO ×4 (08:06→22:07)
[2023-07-28] MEDS: Lisinopril 20 MG Tablet PO (08:07)
[2023-07-28] MEDS: Ciprofloxacin 250 MG Tablet PO ×2 (08:07→22:10)
[2023-07-28 14:49] VITALS: BMI 24.1
[2023-07-28 22:00] VITALS: BP 139/64; PULSE 85; RESP 16; TEMP 37.6; O2SAT 95; BMI 24.1
[2023-07-28] MEDS: Atorvastatin Calcium 40 MG Tablet PO (22:08)
[2023-07-29] MEDS: Menthol/Lanolin/Calamine/Znox 113 GM Tube 1 APPLIC TOPICAL (06:39)
[2023-07-29 09:04] VITALS: BP 148/78; PULSE 97; RESP 18; TEMP 35.9; O2SAT 98
== END 2023-07-29 10:10 | disposition home health service (06) | DRG 385 ==
PROVIDERS: Admitting Provider Family Medicine Geriatric Medicine; PCP Family Medicine; Visit Provider Family Medicine Geriatric Medicine
DX: K51.00 Ulcerative (chronic) pancolitis without complications (principal); I26.99 Other pulmonary embolism without acute cor pulmonale; C77.9 Secondary and unspecified malignant neoplasm of lymph node, unspecified; N39.0 Urinary tract infection, site not specified; C43.59 Malignant melanoma of other part of trunk; I10 Essential (primary) hypertension; E87.6 Hypokalemia; E78.2 Mixed hyperlipidemia; K21.9 Gastro-esophageal reflux disease without esophagitis; G31.84 Mild cognitive impairment of uncertain or unknown etiology; Z79.82 Long term (current) use of aspirin; Z87.891 Personal history of nicotine dependence; Z79.01 Long term (current) use of anticoagulants; T45.1X5D Adverse effect of antineoplastic and immunosuppressive drugs, subsequent encounter; Z79.899 Other long term (current) drug therapy
CPT/HCPCS: 36415; 80048; 81001; 83735; 84100; 85027; 87086; 87088; 87186; 97110; 97116; 97162; 97166; 97530; 97535; 97802; 97803

== ENCOUNTER → 2023-08-10 | Outpatient (CLI) | payer MEDICARE, OTHER, SELFPAY ==
[2023-08-10] MEDS: Pentamidine Isethionate 300 MG, Water For Injection,Sterile 6 ML INHALATION (09:41)
== END | disposition home or self-care (01) ==
LOC: PSN 09:20
PROVIDERS: PCP Family Medicine; Referring Provider Internal Medicine Hematology & Oncology; Visit Provider Internal Medicine Hematology & Oncology
DX: C43.9 Malignant melanoma of skin, unspecified (principal)
CPT/HCPCS: 94642

== ENCOUNTER 2023-08-15 10:41 | Emergency (ER) | payer MEDICARE, OTHER, SELFPAY ==
[2023-08-15 10:42] VITALS: BP 133/111; PULSE 123; RESP 18; TEMP 37.2; O2SAT 98
--- NOTE | 2023-08-15 11:46 | US_ITS ---
HISTORY: EPIGASTRIC PAIN X 2 DAYS. TECHNIQUE: Quinones scale and color doppler imaging was performed of the right upper quadrant. 97 images. COMPARISON: CT 08/25/2020. FINDINGS: LIVER: 15.8 cm in length. Homogeneous echotexture without focal lesion demonstrated. No intrahepatic ductal dilatation. MAIN PORTAL VEIN: Patent with flow in the appropriate direction. COMMON BILE DUCT: 5 mm in diameter. GALLBLADDER: No gallstones. 2 mm wall thickness, within normal limits. No pericholecystic fluid. Sonographic Cobos sign negative. PANCREAS: Visualized proximal portion unremarkable. RIGHT KIDNEY: 10.8 cm in length with a cortical thickness of 1.5 cm. No hydronephrosis or gross renal mass demonstrated. US/Gallbladder IMPRESSION: No sonographic evidence of cholelithiasis. Electronically Signed: Sarita Nguyen MD at 13:05 EST ,
[2023-08-15 11:57] LABS: Absolute Lymphocyte Count 1.19 X10^3/uL (0.83-4.51); Basophil# 0.02 X10^3/uL; Basophil% 0.4 % (0-1); Eosinophil# 0.01 X10^3/uL; Eosinophils% 0.2 % (0-5); Hematocrit 31.3 % (37-47); Lymphocyte # 1.19 X10^3/ul (0.83-4.51); Lymphocyte % 25.1 % (19-41); Mean Corp Hgb Conc 31.9 g/dL (32-36); Mean Corpuscular Hgb 29.9 pg (27.0-32.0); Mean Corpuscular Volume 93.7 fL (81-99); Mean Platelet Vol. 9.6 fl (6.2-12.0); Monocyte# 0.45 X10^3/uL; Monocyte% 9.5 % (0-10); NRBC Flagged by Analyzer 0 % (0-5); Neutrophil # 3.03 X10^3/uL (2.7-7.7); Platelet Count 180 K/mm3 (150-450); RBC Distribution Width CV 17.5 % (11.6-14.6); RBC Distribution Width SD 60.9 fl (35.1-43.9); Red Blood Count 3.34 M/mm3 (4.2-5.4); White Blood Count 4.7 K/mm3 (4.4-11.0)
[2023-08-15] MEDS: 0.9% Normal Saline (1000mL) 1,000 ML 1000 ML IV (12:04)
[2023-08-15 12:19] LABS: AST(SGOT) 16 U/L (15-37); Alanine Aminotransfer ALT/SGPT 23 U/L (13-56); Albumin, Serum 2.8 g/dL (3.2-5.0); Alkaline Phosphatase 63 U/L (45-117); Anion Gap 4 (5-15); BUN 10 mg/dL (7-18); BUN/Creat Ratio 13.2 RATIO (10-20); Bilirubin, Direct 0.15 mg/dL (0.00-0.30); Calcium,Total 8.5 mg/dL (8.5-10.1); Chloride 103 mmol/L (98-107); Creatinine, Serum 0.76 mg/dL (0.55-1.02); EST Glomerular Filtration Rate 79 mL/min (>60); Est Glom Filt Rate - Afr Amer 95 mL/min (>60); Globulin 3.2 g/dL (2.2-4.2); Glucose 114 mg/dL (74-106); Lipase 79 U/L (13-75); Potassium 2.8 mmol/L (3.5-5.1); Sodium Level 138 mmol/L (136-145)
--- NOTE | 2023-08-15 13:45 | EKG12_ITS ---
Test Reason : Blood Pressure : / mmHG Vent. Rate : 108 BPM Atrial Rate : 108 BPM P-R Int : 174 ms QRS Dur : 076 ms QT Int : 318 ms P-R-T Axes : 042 057 049 degrees QTc Int : 426 ms Sinus tachycardia Otherwise normal ECG Confirmed by AMADA HECTOR, JERROD ([id number]), editorial manager CORINA VALDEZ ([id number]) on 08/16/2023 10:41:53 AM Referred By: Confirmed By:JERROD YBARRA MD
--- NOTE | 2023-08-15 13:45 | CT_ITS ---
HISTORY: epigastric pain. TECHNIQUE: Helically acquired images were obtained of the abdomen and pelvis after the intravenous administration of 100 mL Isovue-370. A radiation dose optimization technique was used for this scan. 373 images. COMPARISON: 08/25/2020. FINDINGS: LOWER CHEST: Lung bases clear. BOWEL: Bowel including appendix nondilated. Colonic diverticulosis without focal inflammatory change observed. PERITONEUM: No significant ascites. LIVER: Subcentimeter cyst in the right lobe again seen. GALLBLADDER/BILIARY TREE: Gallbladder present. SPLEEN/PANCREAS/ADRENAL GLANDS: Homogeneous and nonenlarged. KIDNEYS: No hydronephrosis. Small bowel cysts measuring up to 9 mm. VESSELS: No abdominal aortic aneurysm. Mild atherosclerosis of the abdominal aorta and its major branches. PELVIC ORGANS: Tubal ligation clips present. BONES: Bilateral hip arthroplasties in place CT/Abdomen/Pelvis W IV Cont ONLY IMPRESSION: Colonic diverticulosis without acute diverticulitis. Small hepatic and renal cysts. Electronically Signed: Sarita Nguyen MD at 14:37 EST ,
--- NOTE | 2023-08-15 13:46 | EDS_ITS ---
HPI History of Present Illness Chief Complaint: Dizziness Informant: patient Narrative Narrative: 78-year-old female presenting to the emergency room with epigastric pain. Patient describes it as a pressure sensation. Symptoms began yesterday and she has been experiencing some nausea vomiting. Patient has had difficult medical history this year having spent time in rehabilitation facility and developing pulmonary embolisms and DVTs. Currently on Eliquis. She denies any fever. No radiation to the back. No exertional component. No diarrhea. No history of pancreatitis. No prior abdominal surgery. Her recent medical history was uncomplicated with colitis and GI bleeding in addition to need for anticoagulation for pulmonary embolism/DVT while in the setting of melanoma requiring treatment. [facility] Medical History Acute electrocardiogram changes Anticoagulated COVID-19 Essential hypertension Former smoker GERD (gastroesophageal reflux disease) History of cerebellar stroke History of hypertension Hyperlipidemia Left leg DVT Mild cognitive impairment Mild dehydration Myeloma Polyneuropathy Rectal bleeding Seizure Stroke/cerebrovascular accident Syncope Home Medications metoprolol succinate 50 mg tablet,extended release 24 hr 50 mg PO DAILY heart rate ##0 08/15/20 [Rx Last Taken 09/13/22] atorvastatin 40 mg tablet 40 mg PO DAILY cholesterol 09/24/20 [History Last Taken 09/13/22] melatonin 5 mg capsule 3 mg PO QHS PRN Sleep 10/26/20 [History Last Taken 09/12/22] lisinopril 20 mg tablet 20 mg PO DAILY blood pressure 07/13/23 [History Last Taken Unknown] menthol 0.44 %-zinc oxide 20.6 % topical ointment (Calmoseptine) 1 applic topical TID redness 07/13/23 [History Last Taken Unknown] acetaminophen 500 mg tablet 1,000 mg (2 x 500 mg) PO Q6H PRN PRN Pain Score 1-5 #0 tabs 07/27/23 [Rx Last Taken Unknown] apixaban 5 mg tablet (Eliquis) 5 mg PO BID 30 days #60 tabs 07/27/23 [Rx Last Taken Unknown] ciprofloxacin HCl 250 mg tablet 250 mg PO BID 4 days #8 tabs 07/27/23 [Rx Last Taken Unknown] pantoprazole 40 mg tablet,delayed release 40 mg PO DAILY 30 days #30 tabs 07/27/23 [Rx Last Taken Unknown] potassium chloride 20 mEq tablet,extended release(part/cryst) (Klor-Con M) 20 meq PO BIDCM 30 days #60 tabs 07/27/23 [Rx Last Taken Unknown] prednisone 10 mg tablet 30 mg (3 x 10 mg) PO DAILYCM 30 days #90 tabs 07/27/23 [Rx Last Taken Unknown] Allergy/AdvReac Type Severity Reaction Status Date / Time amoxicillin AdvReac Severe Diarrhea Verified 08/15/23 10:41 sulfamethoxazole AdvReac Severe Anaphylaxis Verified 08/15/23 10:41 [From Bactrim] trimethoprim [From Bactrim] AdvReac Swelling Verified 08/15/23 10:41 Family History Brother Alcoholism Asthma Myocardial infarction, Onset Age: 52 Seizures Skin cancer Sister CVA (cerebral vascular accident) Asthma Grandfather Asthma Father Myocardial infarction, Onset Age: 46 Had at age 46 & 62 Mother Myocardial infarction, Onset Age: 82 Surgical History History of amputation of finger History of cataract surgery History of eye surgery History of right hip replacement History of total left hip replacement Social History household members: spouse Smoking Status: Former smoker Tobacco: How many years used: 30 how long ago did patient quit smokin years ago second hand exposure: No alcohol intake: current alcohol intake frequency: holidays/special occasions only Alcohol type: wine substance use type: does not use amy/episcopalian: None seatbelt use: always ROS ROS ED Constitutional Constitutional ED: Denies chills, fever(s) or weight loss Eyes Eyes: Denies change in vision or diplopia ENT ENT ED: Denies ear pain, rhinorrhea or sore throat Cardiovascular Cardiovascular: Denies chest pain, orthopnea, palpitations or racing heartbeat Respiratory/Chest Respiratory/Chest: Denies cough, dyspnea or orthopnea Gastrointestinal Gastrointestinal: Reports abdominal pain, nausea and vomiting; Denies diarrhea Genitourinary Genitourinary ED: Denies dysuria, hematuria or urinary frequency Musculoskeletal Musculoskeletal: Denies arthralgias or myalgias Integumentary Denies abscess or rash Neurologic Neurologic: Denies headache(s) or weakness Psychiatric Psychiatric: Denies anxiety, depression, suicidal ideation or suicidal thoughts Endocrine Endocrinology: Denies polydipsia, polyphagia or polyuria Allergic/Immunologic Allergic/Immunologic ED: Denies mouth swelling, tongue swelling or urticaria EXAM Physical Exam Const Vital Signs: 08/15/23 10:42 08/15/23 11:08 08/15/23 14:54 Temperature 99 F Temperature Source Temporal Pulse Rate 123 H 102 H Respiratory Rate 18 18 Respiratory Effort Normal Non-Labored Blood Pressure 133/111 H 172/64 H Blood Pressure Mean 118 100 Pulse Ox 98 97 Oxygen Delivery Method Room Air Room Air Positive well nourished and well developed General Appearance ED: well developed HEENT Reports normocephalic, head/scalp atraumatic and moist mucous membranes Eyes PERRL and EOMs intact bilaterally Neck no lymphadenopathy, supple and no JVD Resp normal respiratory effort and clear to auscultation bilaterally Cardio regular rate, regular rhythm and no murmurs GI normal to inspection, nondistended, normoactive bowel sounds Palpation: soft and tender epigastric; Negative for guarding or rebound tenderness present Back/Spine no CVA tenderness and normal ROM Extremity normal to inspection General Extremety ED: Negative for edema General Extremity: Negative for edema Neuro oriented x3 and CN's II-XII intact bilaterally Sensorium / Orientation: alert Motor Exam: strength 5/5 throughout Psych mental status grossly normal Mood & Affect: Negative for depressed or tearful Skin no rashes or lesions noted and no wounds MDM MDM MDM Narrative Medical decision making narrative: White count 4.7 normal liver enzymes lipase 79. Glucose 114 potassium slightly low 2.8. Gallbladder ultrasound is negative. CT of the abdomen pelvis negative. EKG is a sinus tachycardia at a rate of 108. Troponin is normal. Patient received IV fluids. I am not seeing evidence of ACS. I am not seeing any intra-abdominal emergency. Potassium can be replaced and she has had this issue in the past. She has a prescription for this at home. She has nausea medication refills at the pharmacy. Patient has a prescription from her oncologist that she needs to flower buncher or picker. Recommend trialing this. Return if w orsening or concerns. History & Record Review Discussion w/independent historian: Patient and Significant other Lab Data Attestation: I reviewed the patient's lab results. Labs: Laboratory Results - last 24 hr 08/15/23 08/15/23 11:07 14:45 WBC 4.7 RBC 3.34 L Hgb 10.0 L Hct 31.3 L MCV 93.7 MCH 29.9 MCHC 31.9 L RDW Std Deviation 60.9 H RDW Coeff of Lynn 17.5 H Plt Count 180 MPV 9.6 Immature Gran % (Auto) 0.800 Neut % (Auto) 64.0 Lymph % (Auto) 25.1 Grundy % (Auto) 9.5 Eos % (Auto) 0.2 Baso % (Auto) 0.4 Absolute Neuts (auto) 3.0 Absolute Lymphs (auto) 1.19 Nucleated RBC % 0 Sodium 138 Potassium 2.8 L Chloride 103 Carbon Dioxide 31.0 Anion Gap 4 L BUN 10 Creatinine 0.76 Est GFR (MDRD) Af Amer 95 Est GFR (MDRD) Non-Af 79 BUN/Creatinine Ratio 13.2 Glucose 114 H Calcium 8.5 Total Bilirubin 0.70 Direct Bilirubin 0.15 AST 16 ALT 23 Alkaline Phosphatase 63 Troponin I High Sens 12 Total Protein 6.0 L Albumin 2.8 L Globulin 3.2 Lipase 79 H Radiography Diagnostic Testing: Clinical Impression(s) from Imaging Studies Gallbladder Ultrasound 08/15/23 11:46 IMPRESSION: No sonographic evidence of cholelithiasis. Electronically Signed: Sarita Nguyen MD at 13:05 EST , Abdomen/Pelvis CT 08/15/23 13:45 IMPRESSION: Colonic diverticulosis without acute diverticulitis. Small hepatic and renal cysts. Electronically Signed: Sarita Nguyen MD at 14:37 EST , EKG Initial EKG: Attestation: I personally reviewed and interpreted this EKG as follows: Comments: Sinus tachycardia ventricular rate of 108 bpm no concerning features of ACS Discharge Plan Triage Chief Complaint: Dizziness ED Provider: Kentrell White Dx/Rx/DC Orders Clinical Impression: Abdominal pain, Hypokalemia, Vomiting, Anticoagulated Instructions: Abdominal Pain, ED Hypokalemia Prescriptions: No Action atorvastatin 40 mg tablet 40 mg PO DAILY melatonin 5 mg capsule 3 mg PO QHS PRN (Reason: Sleep) metoprolol succinate 50 MG tablet 50 mg PO DAILY Qty: 0 0RF Rx Instructions: Hold if heart rate less than 60/min menthol-zinc oxide [Calmoseptine] 0.44-20.6 % ointment 1 applic topical TID lisinopril 20 mg tablet 20 mg PO DAILY prednisone 10 mg Tablet 30 mg PO DAILYCM 30 Days Qty: 90 0RF acetaminophen 500 mg Tablet 1,000 mg PO Q6H PRN PRN (Reason: Pain Score 1-5) Qty: 0 0RF potassium chloride [Klor-Con M20] 20 mEq Tablet,Er Particles/Crystals 20 meq PO BIDCM 30 Days Qty: 60 0RF pantoprazole 40 mg Tablet,Delayed Release (Dr/Ec) 40 mg PO DAILY 30 Days Qty: 30 0RF Eliquis 5 mg Tablet 5 mg PO BID 30 Days Qty: 60 0RF ciprofloxacin HCl 250 mg Tablet 250 mg PO BID 4 Days Qty: 8 0RF Primary Care Provider: Marvin Malloy Referrals: Marvin Malloy MD [Primary Care Provider] - 3-5 Days if not improving Activity Restrictions/Additional Instructions: Please begin your potassium supplementation at twice a day again. You should have this rechecked in a week. Disposition Disposition: Home, Self Care
[2023-08-15 13:57] VITALS: BMI 26.6
[2023-08-15] MEDS: 0.9% Normal Saline (1000mL) 1,000 ML 250 ML IV (13:58)
[2023-08-15 14:54] VITALS: BP 172/64; PULSE 102; RESP 18; O2SAT 97
[2023-08-15 15:11] LABS: Troponin-I HS 12 pg/mL (3.0-54.0)
[2023-08-15 15:28] VITALS: BP 164/73; PULSE 97; RESP 16; O2SAT 98
== END 2023-08-15 15:29 | disposition home or self-care (01) ==
PROVIDERS: Emergency Provider Emergency Medicine; PCP Family Medicine; Visit Provider Emergency Medicine
DX: E87.6 Hypokalemia (principal); R11.10 Vomiting, unspecified; R10.9 Unspecified abdominal pain; I10 Essential (primary) hypertension; E78.5 Hyperlipidemia, unspecified; K21.9 Gastro-esophageal reflux disease without esophagitis; Z86.73 Personal history of transient ischemic attack (TIA), and cerebral infarction without residual deficits; Z79.899 Other long term (current) drug therapy; Z87.891 Personal history of nicotine dependence
CPT/HCPCS: 74177; 76705; 80048; 80076; 83690; 84484; 85025; 93005; 96360; 96361; 99283; J7030; Q9967; A4216

== ENCOUNTER 2023-08-26 11:54 | Inpatient (IN) | payer MEDICARE, OTHER, SELFPAY ==
[2023-08-26 11:56] VITALS: BP 134/69; PULSE 130; RESP 16; TEMP 36.1; O2SAT 96
[2023-08-26 12:07] VITALS: TEMP 37.3
--- NOTE | 2023-08-26 12:23 | EKG12_ITS ---
Test Reason : Blood Pressure : / mmHG Vent. Rate : 107 BPM Atrial Rate : 107 BPM P-R Int : 164 ms QRS Dur : 072 ms QT Int : 324 ms P-R-T Axes : 027 036 038 degrees QTc Int : 432 ms Sinus tachycardia Otherwise normal ECG Confirmed by AMADA HECTOR, JERROD ([id number]), assistant editor CLAYTON QUINONES ([id number]) on 08/28/2023 8:33:30 AM Referred By: Confirmed By:JERROD YBARRA MD
--- NOTE | 2023-08-26 12:31 | EDS_ITS ---
HPI History of Present Illness Chief Complaint: Weakness Informant: patient and spouse/S.O. Narrative Narrative: Patient presents with generalized weakness, abdominal pain with nausea, confusion. History is obtained from as patient was getting IV line est ablished. Patient has history of metastatic melanoma and her treatment this fall led to significant colitis severe diarrhea. She was treated with high-dose steroids. Course was complicated by developing PEs and requiring anticoagulation. Patient was admitted to [facility] August 15 through secondary to abdominal pain and leg pain/weakness with inability to walk. She was found to have adrenal insufficiency. She was discharged home on the and states that she has just had continued weakness since that time and not eating. [facility] Medical History (Updated 08/26/23 @ 15:[address] Celeste Garcia MD) Acute electrocardiogram changes Adrenal insufficiency Anticoagulated Bilateral pulmonary embolism COVID-19 Essential hypertension Former smoker GERD (gastroesophageal reflux disease) History of cerebellar stroke History of hypertension Hyperlipidemia Left leg DVT Mild cognitive impairment Mild dehydration Myeloma Polyneuropathy Rectal bleeding Seizure Stroke/cerebrovascular accident Syncope Home Medications metoprolol succinate 50 mg tablet,extended release 24 hr 50 mg PO DAILY heart rate ##0 08/15/20 [Rx Last Taken 09/13/22] atorvastatin 40 mg tablet 40 mg PO DAILY cholesterol 09/24/20 [History Last Taken 09/13/22] melatonin 5 mg capsule 3 mg PO QHS PRN Sleep 10/26/20 [History Last Taken 09/12/22] lisinopril 20 mg tablet 20 mg PO DAILY blood pressure 07/13/23 [History Last Taken Unknown] menthol 0.44 %-zinc oxide 20.6 % topical ointment (Calmoseptine) 1 applic topical TID redness 07/13/23 [History Last Taken Unknown] acetaminophen 500 mg tablet 1,000 mg (2 x 500 mg) PO Q6H PRN PRN Pain Score 1-5 #0 tabs 07/27/23 [Rx Last Taken Unknown] apixaban 5 mg tablet (Eliquis) 5 mg PO BID 30 days #60 tabs 07/27/23 [Rx Last Taken Unknown] ciprofloxacin HCl 250 mg tablet 250 mg PO BID 4 days #8 tabs 07/27/23 [Rx Last Taken Unknown] pantoprazole 40 mg tablet,delayed release 40 mg PO DAILY 30 days #30 tabs 07/27/23 [Rx Last Taken Unknown] potassium chloride 20 mEq tablet,extended release(part/cryst) (Klor-Con M) 20 meq PO BIDCM 30 days #60 tabs 07/27/23 [Rx Last Taken Unknown] prednisone 10 mg tablet 30 mg (3 x 10 mg) PO DAILYCM 30 days #90 tabs 07/27/23 [Rx Last Taken Unknown] Allergy/AdvReac Type Severity Reaction Status Date / Time Sulfa (Sulfonamide Allergy Unknown NEEDS Verified 08/26/23 11:56 Antibiotics) FOLLOW-UP amoxicillin AdvReac Severe Diarrhea Verified 08/26/23 11:56 sulfamethoxazole AdvReac Severe Anaphylaxis Verified 08/26/23 11:56 [From Bactrim] trimethoprim [From Bactrim] AdvReac Swelling Verified 08/26/23 11:56 Family History Brother Alcoholism Asthma Myocardial infarction, Onset Age: 52 Seizures Skin cancer Sister CVA (cerebral vascular accident) Asthma Grandfather Asthma Father Myocardial infarction, Onset Age: 46 Had at age 46 & 62 Mother Myocardial infarction, Onset Age: 82 Surgical History History of amputation of finger History of cataract surgery History of eye surgery History of right hip replacement History of total left hip replacement Social History household members: spouse Smoking Status: Former smoker Tobacco: How many years used: 30 how long ago did patient quit smokin years ago second hand exposure: No alcohol intake: current alcohol intake frequency: holidays/special occasions only Alcohol type: wine substance use type: does not use amy/islam: None seatbelt use: always ROS ROS ED Constitutional Constitutional ED: Denies chills or fever(s) Eyes Eyes: Denies discharge from eye(s) ENT ENT ED: Denies discharge from eye(s), rhinorrhea or sore throat Cardiovascular Cardiovascular: Denies chest pain or palpitations Respiratory/Chest Respiratory/Chest: Denies cough or dyspnea Gastrointestinal Gastrointestinal: Reports abdominal pain, diarrhea, nausea and vomiting Genitourinary Genitourinary ED: Denies dysuria Musculoskeletal Musculoskeletal: Denies back pain or extremity pain Integumentary Denies Abrasions or rash Neurologic Neurologic: Reports weakness; Denies headache(s) Psychiatric Psychiatric: Denies anxiety or depression Allergic/Immunologic Allergic/Immunologic ED: Denies lip swelling or urticaria EXAM Physical Exam Const Vital Signs: 08/26/23 11:56 08/26/23 12:07 08/26/23 12:19 Temperature 96.9 F L 99.1 F Temperature Source Temporal Oral Pulse Rate 130 H Respiratory Rate 16 Respiratory Effort Normal Non-Labored Respiratory Pattern Normal Blood Pressure 134/69 H Blood Pressure Mean 90 Pulse Ox 96 Oxygen Delivery Method Room Air Positive well nourished and well developed General Appearance ED: well developed HEENT Reports moist mucous membranes Eyes EOMs intact bilaterally Chest Wall inspection of chest normal and palpation of chest normal Resp normal respiratory effort and clear to auscultation bilaterally Cardio regular rhythm Rate: tachycardic GI GI Narrative: Abdomen soft with hypoactive bowel sounds. Mild tenderness in the epigastrium. No guarding or rebound. Extremity normal to inspection Neuro oriented x3 Neuro Narrative: No focal neurologic deficit. Psych Psych Narrative: Rests with eyes closed but answers questions appropriately. 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 IV line initiated. EKG obtained to evaluate for cardiac arrhythmia/ischemia. Labwork obtained to evaluate for leukocytosis, anemia, and electrolyte derangement. Urinalysis obtained to evaluate for infection/hematuria. History & Record Review Discussion w/independent historian: Patient and Significant other Additional record(s) reviewed:: Prior inpatient record, Prior ED visit and Prior labs Lab Data Attestation: I reviewed the patient's lab results. Labs: Laboratory Results - last 24 hr 08/26/23 08/26/23 12:28 13:25 WBC 7.0 RBC 3.23 L Hgb 9.6 L Hct 30.3 L MCV 93.8 MCH 29.7 MCHC 31.7 L RDW Std Deviation 58.3 H RDW Coeff of Lynn 17.0 H Plt Count 296 MPV 9.0 Immature Gran % (Auto) 0.700 Neut % (Auto) 65.2 Lymph % (Auto) 22.0 Charles % (Auto) 11.4 H Eos % (Auto) 0.4 Baso % (Auto) 0.3 Absolute Neuts (auto) 4.6 Absolute Lymphs (auto) 1.54 Nucleated RBC % 0 Sodium 136 Potassium 4.0 Chloride 105 Carbon Dioxide 24.0 Anion Gap 7 BUN 8 Creatinine 0.60 Est GFR (MDRD) Af Amer 125 Est GFR (MDRD) Non-Af 103 BUN/Creatinine Ratio 13.3 Glucose 98 Calcium 8.1 L Total Bilirubin 0.50 Direct Bilirubin 0.18 AST 19 ALT 18 Alkaline Phosphatase 86 Total Protein 6.0 L Albumin 2.3 L Globulin 3.7 Lipase 46 Urine Color Yellow Urine Clarity Clear Urine pH 8.0 Ur Specific Doyle 1.010 Urine Protein Negative Urine Glucose (UA) Normal Urine Ketones Negative Urine Occult Blood Negative Urine Nitrite Negative Urine Bilirubin Negative Urine Urobilinogen Normal Ur Leukocyte Esterase Negative Urine RBC 0 SEEN Urine WBC 0 SEEN Ur Squamous Epith Cells 0 SEEN Urine Bacteria 0 SEEN Urine Mucus 0 SEEN Radiography Chest X-Ray - ED: 1 View, Read by ED Physician, Chronic Changes and No Infiltrates Diagnostic Testing: Clinical Impression(s) from Imaging Studies Abdomen/Pelvis CT 08/26/23 13:09 IMPRESSION: Senescent changes with no evidence of acute intra-abdominal process or focal inflammation. Normal appendix. Mild splenomegaly. Electronically Signed: Candido Goetz DO at 14:16 EST , Chest X-Ray 08/26/23 14:51 IMPRESSION: There are no acute findings. Electronically Signed: Erasmo Lewis MD at 15:14 EST , EKG Initial EKG: Attestation: I personally reviewed and interpreted this EKG as follows: Interpretation: Sinus Tachycardia (Sinus tachycardia at 107. No acute ischemia.) Treatment and Re-Evaluation :: CBC was normal white count 7.0 with a hemoglobin 9.6. Chemistry studies unremarkable. LFTs and lipase normal. Urinalysis reveals no evidence of infection. CT scan abdomen pelvis with IV contrast reveals senescent changes with no evidence of acute intra-abdominal process or focal inflammation. Normal appendix noted. I was notified by nursing staff that patient's O2 sat dropped to 88% while she was sleeping. She is currently on 2 L. In light of this it portable chest x-ray is obtained and reveals chronic changes with no focal infiltrate. After IV fluids patient's heart rate is currently in the 80s. Patient has not been able to tolerate p.o. at home and has had progressive weakness despite just being discharged from the hospital 2 days ago. I did speak with our hospitalist and she is comfortable admitting the patient for further workup including EGD. This has not yet been performed. Discharge Plan Triage Chief Complaint: Weakness ED Provider: Celeste Garcia Dx/Rx/DC Orders Clinical Impression: Declining functional status, Abdominal pain Prescriptions: No Action atorvastatin 40 mg tablet 40 mg PO DAILY melatonin 5 mg capsule 3 mg PO QHS PRN (Reason: Sleep) metoprolol succinate 50 MG tablet 50 mg PO DAILY Qty: 0 0RF Rx Instructions: Hold if heart rate less than 60/min menthol-zinc oxide [Calmoseptine] 0.44-20.6 % ointment 1 applic topical TID lisinopril 20 mg tablet 20 mg PO DAILY prednisone 10 mg Tablet 30 mg PO DAILYCM 30 Days Qty: 90 0RF acetaminophen 500 mg Tablet 1,000 mg PO Q6H PRN PRN (Reason: Pain Score 1-5) Qty: 0 0RF potassium chloride [Klor-Con M20] 20 mEq Tablet,Er Particles/Crystals 20 meq PO BIDCM 30 Days Qty: 60 0RF pantoprazole 40 mg Tablet,Delayed Release (Dr/Ec) 40 mg PO DAILY 30 Days Qty: 30 0RF Eliquis 5 mg Tablet 5 mg PO BID 30 Days Qty: 60 0RF ciprofloxacin HCl 250 mg Tablet 250 mg PO BID 4 Days Qty: 8 0RF Primary Care Provider: Marvin Malloy Referrals: Marvin Malloy MD [Primary Care Provider] - Disposition Disposition: Acute Care Hospital [facility]
[2023-08-26] MEDS: 0.9% Normal Saline (500mL Bag) 500 ML 1000 ML IV (12:40)
[2023-08-26 12:41] LABS: Absolute Lymphocyte Count 1.54 X10^3/uL (0.83-4.51); Absolute Neutrophil Count 4.6 X10^3/uL (2.0-7.7); Basophil# 0.02 X10^3/uL; Basophil% 0.3 % (0-1); Eosinophil# 0.03 X10^3/uL; Eosinophils% 0.4 % (0-5); Hematocrit 30.3 % (37-47); Hemoglobin 9.6 g/dL (12.0-15.0); Lymphocyte # 1.54 X10^3/ul (0.83-4.51); Mean Corp Hgb Conc 31.7 g/dL (32-36); Mean Corpuscular Hgb 29.7 pg (27.0-32.0); Mean Corpuscular Volume 93.8 fL (81-99); Monocyte% 11.4 % (0-10); NRBC Flagged by Analyzer 0 % (0-5); Neutrophil # 4.57 X10^3/uL (2.7-7.7); Neutrophil % 65.2 % (47-70); Platelet Count 296 K/mm3 (150-450); RBC Distribution Width SD 58.3 fl (35.1-43.9); Red Blood Count 3.23 M/mm3 (4.2-5.4)
[2023-08-26 13:02] LABS: AST(SGOT) 19 U/L (15-37); Alanine Aminotransfer ALT/SGPT 18 U/L (13-56); Albumin, Serum 2.3 g/dL (3.2-5.0); Alkaline Phosphatase 86 U/L (45-117); Anion Gap 7 (5-15); BUN 8 mg/dL (7-18); BUN/Creat Ratio 13.3 RATIO (10-20); Bilirubin, Direct 0.18 mg/dL (0.00-0.30); Calcium,Total 8.1 mg/dL (8.5-10.1); Chloride 105 mmol/L (98-107); EST Glomerular Filtration Rate 103 mL/min (>60); Est Glom Filt Rate - Afr Amer 125 mL/min (>60); Globulin 3.7 g/dL (2.2-4.2); Glucose 98 mg/dL (74-106); Lipase 46 U/L (13-75); Sodium Level 136 mmol/L (136-145)
--- NOTE | 2023-08-26 13:09 | CT_ITS ---
STUDY: CT ABDOMEN AND PELVIS WITH CONTRAST REASON FOR EXAM: Female, 78 years old. abd pain, unable to eat RADIATION DOSAGE (If Supplied By Facility): CTDIvol = ( 10.31 ) mGy, DLP = ( 661.77 ) mGycm TECHNIQUE: Transaxial images were obtained from the dome of the diaphragm to the symphysis pubis without oral contrast. IV 100mL Isovue-370 was administered. Sagittal and coronal images were reconstructed. Individualized dose optimization techniques were used for this CT. COMPARISON: 08/25/2020 CT abdomen and pelvis FINDINGS: The visualized lung bases are unremarkable. The visualized portions of the heart are within normal limits. Normal liver. Normal gallbladder and extrahepatic biliary system. There is mild splenomegaly. Normal pancreas. Normal bilateral adrenal glands. Normal right kidney. Normal left kidney. Normal visualized stomach. Normal small intestine. Normal colon. The appendix is visualized and appears normal. There is diffuse atherosclerotic calcification of the abdominal aorta, without a demonstrated aneurysm. Normal inferior vena cava. Normal retroperitoneum. Normal urinary bladder. Normal abdominal wall. Normal osseous structures. CT/Abdomen/Pelvis W IV Cont ONLY IMPRESSION: Senescent changes with no evidence of acute intra-abdominal process or focal inflammation. Normal appendix. Mild splenomegaly. Electronically Signed: Candido Goetz DO at 14:16 EST ,
[2023-08-26] MEDS: 0.9% Normal Saline (1000mL) 1,000 ML 150 ML IV (13:10)
[2023-08-26 13:28] LABS: Bacteria 0 SEEN /hpf (None Seen); Mucous, Urine 0 SEEN /hpf (<or=2+); Red Blood Cells-Urine 0 SEEN /hpf (0-5); Squamous Epithelial Cells - UA 0 SEEN /hpf (5-10); White Blood Cells 0 SEEN /hpf (0-5)
[2023-08-26 13:32] LABS: Color, Urine Yellow (Yellow); Glucose, Dipstick Normal (Normal); Ketone-Dipstick Negative (Negative); Leukocyte Esterase-Dipstick Negative /ul (Negative); Nitrite-Dipstick Negative (Negative); Occult Blood-Urine Negative /ul (Negative); Protein-Dipstick Negative (Negative); Urine Bilirubin Dipstick Negative (Negative); Urine Clarity Clear (Clear); Urine Urobilinogen Normal (Normal)
--- NOTE | 2023-08-26 14:51 | RAD_ITS ---
STUDY: XR Chest 1 View 08/26/2023 2:51 PM REASON FOR EXAM: Female, 78 years old. hypoxia COMPARISON: 07/19/2022 TECHNIQUE: XR Chest 1 View FINDINGS: There is no demonstrated pleural abnormality. There are multiple metallic clips in the left axilla. This is consistent for a prior axillary dissection. There are mastectomy changes noted. Normal heart size. Normal mediastinum. Normal francine. Prominent appearing increased interstitial lung markings. Normal visualized pulmonary arteries. There is atherosclerotic calcification of the aortic arch with tortuosity. There are diffuse degenerative changes of the visualized thoracic spine. There is degenerative osteoarthritis of the bilateral shoulders. There are no acute findings of the upper abdomen. RAD/Chest 1 View (Portable) IMPRESSION: There are no acute findings. Electronically Signed: Erasmo Lewis MD at 15:14 EST ,
--- NOTE | 2023-08-26 15:28 | PCM.HP.STD ---
HPI - General General Date of Admission: 08/26/23 Date of Service: 08/26/23 Chief Complaint: Intractable nausea, dry heaves, unable to tolerate oral intake, epigastric pain. HPI Narrative The patient is a 78 y/o F w/ PMHx: Hx VTE (PE, DVT), Former tobacco use, Seizure disorder, Mild cognitive impairment, GERD, HTN, HLD, Chronic normocytic anemia, Hx COVID, Seizure disorder, Adrenal insufficiency, Metastatic melanoma on immunotherapy following with Dr. Palma with prior admission with regimen associated colitis with a relapse on infliximab and steroids, recent discharge from w/ significant debility, inability to walk with lower extremity weakness and failure to thrive with poor oral intake ability and epigastric discomfort with diagnosis upon discharge including adrenal insufficiency with continued prednisone 5 mg daily with planned outpatient endocrinology follow-up, MRI of the spine as well as a bone scan with multiple incidental osseous hemangiomas and degenerative changes in the thoracic and lumbar spine with evaluation per orthopedic spine recommended against any kind of intervention with planned outpatient continue follow-up with sepsis ruled out with PT/OT evaluation with home therapy recommendation and given patient issue with oral intake concern for gastritis versus esophagitis with referral to GI outpatient for outpatient EGD who now re-presents to the [facility] ED on 08/26/23 with since discharge continued inability to eat with nausea and dry heaving only able to tolerate a couple bites with epigastric discomfort noted to be constant although worse with any oral intake attempts both mixed dull aching and occasional sharp stabbing rated 5-6 out of 10 in severity with no recent fever or chills but given persistent and not keeping anything down and not eating well brought in by her spouse. In the ED included T94, heart rate 60 WBC 7.0, hemoglobin 0.6, MCV 93.8, platelet 296 without marked shift, CMP not marked appearing, lipase 46, urinalysis unremarkable, chest x-ray with no acute cardiopulmonary findings, CT abdomen and pelvis with senescent changes with no evidence of any acute intra-abdominal process or focal inflammation with normal-appearing appendix and mild splenomegaly. Patient ministered maintenance IV fluids. Discussed presentation history with Dr. Antonio who was amenable to possible endoscopy on Sunday. Also per patient and spouse request did contact Dr. Amaro who is her niece and reviewed the case and updated her on plan of care. [facility] Medical History (Updated 08/26/23 @ 20:[address] 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 Mild cognitive impairment Myeloma Polyneuropathy Seizures Home Medications metoprolol succinate 50 mg tablet,extended release 24 hr 50 mg PO DAILY heart rate ##0 08/15/20 [Rx Last Taken 08/26/23 10:00] atorvastatin 40 mg tablet 40 mg PO DAILY cholesterol 09/24/20 [History Last Taken 08/26/23 10:00] melatonin 5 mg capsule 3 mg PO QHS PRN Sleep 10/26/20 [History Last Taken 09/12/22] lisinopril 20 mg tablet 20 mg PO DAILY blood pressure 07/13/23 [History Last Taken 08/26/23 10:00] acetaminophen 500 mg tablet 1,000 mg (2 x 500 mg) PO Q6H PRN PRN Pain Score 1-5 #0 tabs 07/27/23 [Rx Last Taken Unknown] apixaban 5 mg tablet (Eliquis) 5 mg PO BID blood thinner 30 days #60 tabs 07/27/23 [Rx Last Taken 08/26/23 10:00] potassium chloride 20 mEq tablet,extended release(part/cryst) (Klor-Con M) 20 meq PO BIDCM supplement 30 days #60 tabs 07/27/23 [Rx Last Taken 08/26/23 09:00] nystatin 100,000 unit/mL oral suspension 5 ml PO Q8H PRN PRN thrush 08/26/23 [History Last Taken Unknown] omeprazole 20 mg capsule,delayed release 20 mg PO DAILY gerd 08/26/23 [History Last Taken 08/26/23 10:00] ondansetron HCl 8 mg tablet 8 mg PO Q8H PRN nausea 08/26/23 [History Last Taken 08/25/23] prednisone 10 mg tablet 5 mg PO DAILYCM colitis 08/26/23 [History Last Taken 08/26/23 10:00] sucralfate 1 gram tablet 1 g PO Q6H colitis 08/26/23 [History Last Taken 08/26/23 17:00] Allergy/AdvReac Type Severity Reaction Status Date / Time Sulfa (Sulfonamide Allergy Unknown NEEDS Verified 08/26/23 11:56 Antibiotics) FOLLOW-UP amoxicillin AdvReac Severe Diarrhea Verified 08/26/23 11:56 sulfamethoxazole AdvReac Severe Anaphylaxis Verified 08/26/23 11:56 [From Bactrim] trimethoprim [From Bactrim] AdvReac Swelling Verified 08/26/23 11:56 Family History Brother Alcoholism Asthma Myocardial infarction, Onset Age: 52 Seizures Skin cancer Sister CVA (cerebral vascular accident) Asthma Grandfather Asthma Father Myocardial infarction, Onset Age: 46 Had at age 46 & 62 Mother Myocardial infarction, Onset Age: 82 Surgical History History of amputation of finger History of cataract surgery History of eye surgery History of right hip replacement History of total left hip replacement Social History household members: spouse Smoking Status: Former smoker Tobacco: How many years used: 30 how long ago did patient quit smokin years ago second hand exposure: No alcohol intake: current alcohol intake frequency: holidays/special occasions only Alcohol type: wine substance use type: does not use amy/holiness: None seatbelt use: always ROS ROS Narrative Admission Review of Systems: CONSTITUTIONAL: No weight loss, fever, chills, + weakness or fatigue. HEENT: Eyes: No visual loss, blurred vision, double vision or yellow sclerae. Ears, Nose, Throat: No hearing loss, sneezing, congestion, runny nose or sore throat. SKIN: No rash or itching, lesions, wounds. CARDIOVASCULAR: + Edema. No chest pain, chest pressure or chest discomfort, palpitations, orthopnea, syncopal events. RESPIRATORY: No shortness of breath, cough or sputum, wheezing, hemoptysis. GASTROINTESTINAL: + anorexia, nausea, vomiting, abdominal pain. No diarrhea, melena, BRBPR. GENITOURINARY: No dysuria, frequency, urgency or retention. NEUROLOGICAL: + BL LE generalized weakness, debility, seiziure history. No headache, dizziness, syncope, paralysis, ataxia, numbness or tingling in the extremities, focal weakness, change in bowel or bladder control, seizure. MUSCULOSKELETAL: + muscle, back pain, joint pain or stiffness. HEMATOLOGIC: + anemia, easy bleeding/bruising. LYMPHATICS: No enlarged nodes. No history of splenectomy. PSYCHIATRIC: No history of depression or anxiety. ENDOCRINOLOGIC: No reports of sweating, cold or heat intolerance. No polyuria or polydipsia. ALLERGIES: + History of anaphylaxis. Vital Signs Vital Signs Vital Signs: 08/26/23 11:56 08/26/23 12:07 08/26/23 12:19 Temperature 96.9 F L 99.1 F Temperature Source Temporal Oral Pulse Rate 130 H Respiratory Rate 16 Respiratory Effort Normal Non-Labored Respiratory Pattern Normal Blood Pressure 134/69 H Blood Pressure Mean 90 Pulse Ox 96 Oxygen Delivery Method Room Air Physical Exam Narrative Physical Examination: General: Awake, alert, oriented x 3 and cooperative, seated upright in the ED bed, fatigued and uncomfortable appearing. Skin: Normal color, normal turgor, no icterus, no cyanosis except for occasional staged ecchymoses, abrasion. HEENT: AT/NC, EOMI, PERRLA, dry MM, no carotid bruits or JVD noted. Lungs: Diminished, greater bases, proper effort, no rales, ronchi or wheezing. Heart: Tachycardic with regular rhythm; no gallop, rub audible. Abdomen: Soft, epigastric discomfort with palpation but no rebound or guarding, no marked distention, mildly hyperactive BS, mild SM. Extremities: No cyanosis, no clubbing, mild peripheral nonpitting edema. Neurological: Patient awake, alert, oriented as noted, cognitive function intact but does have underlying mild cognitive impairment per chart history of note; pupils equally reactive to light and accommodation, cranial nerves II-XII grossly normal, moving all 4 extremities, no focal deficits, strength moderately to severely globally decreased. Psychiatric: Affect appears fatigued, no acute evidence of depressive or anxiety feelings. Results Lab / Micro Data 08/26/23 12:28 08/26/23 12:28 Labs: Laboratory Results - last 24 hr 08/26/23 12:28: WBC 7.0, RBC 3.23 L, Hgb 9.6 L, Hct 30.3 L, MCV 93.8, MCH 29.7, MCHC 31.7 L, RDW Std Deviation 58.3 H, RDW Coeff of [place] 17.0 H, Plt Count 296, MPV 9.0, Immature Gran % (Auto) 0.700, Neut % (Auto) 65.2, Lymph % (Auto) 22.0, [place] % (Auto) 11.4 H, Eos % (Auto) 0.4, Baso % (Auto) 0.3, Absolute Neuts (auto) 4.6, Absolute Lymphs (auto) 1.54, Nucleated RBC % 0, Sodium 136, Potassium 4.0, Chloride 105, Carbon Dioxide 24.0, Anion Gap 7, BUN 8, Creatinine 0.60, Est GFR (MDRD) Af Amer 125, Est GFR (MDRD) Non-Af 103, BUN/Creatinine Ratio 13.3, Glucose 98, Calcium 8.1 L, Total Bilirubin 0.50, Direct Bilirubin 0.18, AST 19, ALT 18, Alkaline Phosphatase 86, Total Protein 6.0 L, Albumin 2.3 L, Globulin 3.7, Lipase 46 08/26/23 13:25: Urine Color Yellow, Urine Clarity Clear, Urine pH 8.0, Ur Specific [place] 1.010, Urine Protein Negative, Urine Glucose (UA) Normal, Urine Ketones Negative, Urine Occult Blood Negative, Urine Nitrite Negative, Urine Bilirubin Negative, Urine Urobilinogen Normal, Ur Leukocyte Esterase Negative, Urine RBC 0 SEEN, Urine WBC 0 SEEN, Ur Squamous Epith Cells 0 SEEN, Urine Bacteria 0 SEEN, Urine Mucus 0 SEEN Imagaing Radiology Impression Abdomen/Pelvis CT 08/26/23 13:09 IMPRESSION: Senescent changes with no evidence of acute intra-abdominal process or focal inflammation. Normal appendix. Mild splenomegaly. Electronically Signed: Candido Goetz DO at 14:16 EST , Chest X-Ray 08/26/23 14:51 IMPRESSION: There are no acute findings. Electronically Signed: Erasmo Lewis MD at 15:14 EST , Assessment & Plan Assessment/Plan (1) Gastritis: PLAN: Plan The patient is a 78 y/o F w/ PMHx: Hx VTE (PE, DVT), Former tobacco use, Seizure disorder, Mild cognitive impairment, GERD, HTN, HLD, Chronic normocytic anemia, Hx COVID, Seizure disorder, Adrenal insufficiency, Metastatic melanoma on immunotherapy following with Dr. Palma with prior admission with regimen associated colitis with a relapse on infliximab and steroids, recent discharge from w/ significant debility, inability to walk with lower extremity weakness and failure to thrive with poor oral intake ability and epigastric discomfort with diagnosis upon discharge including adrenal insufficiency with continued prednisone 5 mg daily with planned outpatient endocrinology follow-up, MRI of the spine as well as a bone scan with multiple incidental osseous hemangiomas and degenerative changes in the thoracic and lumbar spine with evaluation per orthopedic spine recommended against any kind of intervention with planned outpatient continue follow-up with sepsis ruled out with PT/OT evaluation with home therapy recommendation and given patient issue with oral intake concern for gastritis versus esophagitis with referral to GI outpatient for outpatient EGD who now re-presents to the [facility] ED on 08/26/23 with since discharge continued inability to eat with nausea and dry heaving only able to tolerate a couple bites with epigastric discomfort noted to be constant although worse with any oral intake attempts both mixed dull aching and occasional sharp stabbing rated 5-6 out of 10 in severity with no recent fever or chills but given persistent and not keeping anything down and not eating well brought in by her spouse. #1. Intractable nausea, dry heaves, inability to tolerate oral intake with epigastric discomfort concerning for gastritis versus esophagitis: Will admit to medical surgical floor, will maintain on judicious IV fluids, will allow clears if able to tolerate, maintain on IV PPI and attempt continued sucralfate regimen, will continue oral medications however she is unable to tolerate in cases where able will transition to IV formulations, will trend lipase and amylase level, repeat CBC/CMP, discussed case with gastroenterology who will evaluate and potentially perform endoscopy on Sunday, nutrition consulted given poor recent oral intake. #2. Adult failure to thrive with debility, difficulty walking, multifactorial given underlying disease history is as noted as well as chronic thoracic and lumbar recent spinal changes: Encourage continued outpatient follow-up as previously arranged at a recent discharge, will maintain on fall precautions, offloading, PT/OT/case management consulted for discharge planning. #3. Metastatic melanoma: Maintained on immunotherapy however recently had issues with associated colitis with severe diarrhea to treat with high-dose steroids eventually decreased to low-dose without admission complicated by bilateral pulmonary emboli, following with Dr. Palma, magnesium and phosphorus levels requested. #4. Chronic normocytic anemia: CBC with hemoglobin 9.6, MCV 93.8, baseline hemoglobin noted recently 08/15/2023 to be 10 however has declined since June likely related with underlying cancer and treatments, continue to closely monitor. #5. Hypertension: Continue home regimen including lisinopril, metoprolol with transition to IV regimen if unable to tolerate, PRN hydralazine. #6. Hyperlipidemia: We will continue patient on statin therapy if able to tolerate. #7. Recent history of immunotherapy related colitis: Will continue low-dose steroid therapy, encourage continued outpatient follow-up with oncology as recently arranged. #8. History of VTE: Patient with history DVT, bilateral PE, continue patient Eliquis therapy however if unable to tolerate low threshold to transition to therapeutic Lovenox versus heparin drip. #9. Seizure disorder: Not on any antiepileptic medication per review of current regimen, continue to closely monitor especially given history. #10. Former tobacco use: Encourage continued tobacco cessation. #11. Chart reported history mild cognitive impairment: Complicates presentation but very interactive and appropriate, maintain on fall precautions, therapies consulted as well as case management as noted. #12. Adrenal insufficiency: Will continue patient home prednisone therapy low-dose. #13. GERD: We will make IV PPI. #14. DVT prophylaxis: We will continue patient Eliquis regimen however if unable to take these medications low threshold to transition to therapeutic Lovenox versus heparin drip in the interim. #15. CODE status: Patient HCPOA is her who is present and living will is currently in place. Discussed CODE status at length including difference between FULL code, DNR-CCA and DNR-CC status. Following discussions about the differences in these status, requested Full Code status. Advanced Care Planning Face to Face Time: 16 minutes. Charges/Coding Visit Charges Inpatient E&M: 26253 Init Hosp L3 Procedures Hospitalists Procedures: 60122 Advncd Care Plan 30 Min
[2023-08-26 15:52] VITALS: BP 117/57; PULSE 86; RESP 14; TEMP 36.9; O2SAT 97
[2023-08-26 16:20] LABS: Magnesium 1.7 mg/dL (1.6-2.6)
[2023-08-26 16:22] VITALS: BMI 24.3
[2023-08-26 16:54] VITALS: BP 104/55; PULSE 85; RESP 16; TEMP 36.8; O2SAT 99
[2023-08-26] MEDS: Sucralfate 1 GM Tablet PO ×2 (17:05→23:00)
[2023-08-26] MEDS: Ondansetron 4 MG/2 ML Vial IV (17:05)
[2023-08-26] MEDS: Acetaminophen 325 MG Tablet 650 MG PO (17:06)
[2023-08-26] MEDS: 0.9% Normal Saline (1000mL) 1,000 ML 100 ML IV (17:06)
[2023-08-26] MEDS: Pantoprazole Sodium 40 MG in 0.9% Normal Saline (100mL MB+) 100 ML 330 MG IV (17:54)
[2023-08-26] MEDS: Sodium Phosphate/Na Biphos 21 MMOL in 0.9% Normal Saline (250mL Bag) 250 ML 84 MMOL IV (23:00)
[2023-08-26] MEDS: APIXABAN 5 MG TABLET PO (23:04)
[2023-08-26 23:07] VITALS: BP 133/78; PULSE 72; RESP 16; TEMP 36; O2SAT 100
[2023-08-27] MEDS: Ondansetron 4 MG/2 ML Vial IV ×2 (00:14→16:40)
[2023-08-27] MEDS: MELATONIN 3 MG TABLET PO (00:14)
[2023-08-27] MEDS: proCHLORPERazine 10 MG/2 ML Vial 5 MG IV ×2 (01:31→20:11)
[2023-08-27] MEDS: Acetaminophen 325 MG Tablet 650 MG PO ×3 (02:45→13:19)
[2023-08-27 03:08] VITALS: BMI 24.3
[2023-08-27 03:31] VITALS: BP 125/59; PULSE 98; RESP 18; TEMP 37.1; O2SAT 98
[2023-08-27 05:50] LABS: Absolute Lymphocyte Count 0.54 X10^3/uL (0.83-4.51); Absolute Neutrophil Count 3.9 X10^3/uL (2.0-7.7); Basophil# 0.01 X10^3/uL; Basophil% 0.2 % (0-1); Eosinophil# 0.02 X10^3/uL; Eosinophils% 0.4 % (0-5); Hematocrit 25.9 % (37-47); Hemoglobin 8.2 g/dL (12.0-15.0); Lymphocyte # 0.54 X10^3/ul (0.83-4.51); Lymphocyte % 10.7 % (19-41); Mean Corp Hgb Conc 31.7 g/dL (32-36); Mean Corpuscular Hgb 29.7 pg (27.0-32.0); Mean Corpuscular Volume 93.8 fL (81-99); Mean Platelet Vol. 8.7 fl (6.2-12.0); Monocyte# 0.52 X10^3/uL; Monocyte% 10.3 % (0-10); NRBC Flagged by Analyzer 0 % (0-5); Neutrophil # 3.92 X10^3/uL (2.7-7.7); Neutrophil % 77.2 % (47-70); POSITIVE DIFFERENTIAL YES; Platelet Count 235 K/mm3 (150-450); RBC Distribution Width CV 16.9 % (11.6-14.6); RBC Distribution Width SD 58.1 fl (35.1-43.9); Red Blood Count 2.76 M/mm3 (4.2-5.4); White Blood Count 5.1 K/mm3 (4.4-11.0)
[2023-08-27 05:55] LABS: Differential Indicated SCAN CRITERIA MET
[2023-08-27 06:18] LABS: ALB/GLOB Ratio 0.7 RATIO (0.9-2.4); AST(SGOT) 16 U/L (15-37); Alanine Aminotransfer ALT/SGPT 15 U/L (13-56); Albumin, Serum 1.9 g/dL (3.2-5.0); Alkaline Phosphatase 68 U/L (45-117); Amylase 17 U/L (25-115); Anion Gap 8 (5-15); BUN 6 mg/dL (7-18); BUN/Creat Ratio 15.2 RATIO (10-20); Calcium,Total 7.4 mg/dL (8.5-10.1); Chloride 108 mmol/L (98-107); EST Glomerular Filtration Rate 167 mL/min (>60); Est Glom Filt Rate - Afr Amer 202 mL/min (>60); Globulin 2.8 g/dL (2.2-4.2); Glucose 80 mg/dL (74-106); Lipase 31 U/L (13-75); Potassium 3.3 mmol/L (3.5-5.1); Protein, Total 4.7 g/dL (6.4-8.2); Sodium Level 139 mmol/L (136-145)
[2023-08-27] MEDS: 0.9% Normal Saline (1000mL) 1,000 ML 100 ML IV ×2 (06:22→16:40)
[2023-08-27] MEDS: Sucralfate 1 GM Tablet PO ×4 (06:22→22:06)
[2023-08-27 06:24] VITALS: O2SAT 95
[2023-08-27 07:44] LABS: Differential Comment SCANNED
[2023-08-27 07:58] VITALS: PULSE 81
[2023-08-27] MEDS: APIXABAN 5 MG TABLET PO ×2 (07:58→22:06)
[2023-08-27] MEDS: Lisinopril 20 MG Tablet PO (07:58)
[2023-08-27] MEDS: predniSONE 5 MG Tablet PO (07:58)
[2023-08-27] MEDS: Potassium Chloride Oral Tablet 20 MEQ PO (07:58)
[2023-08-27] MEDS: Metoprolol(XL)Succ 50 MG Tablet PO (07:58)
[2023-08-27 08:00] VITALS: BP 128/56; PULSE 81; RESP 18; TEMP 36.6; O2SAT 100
--- NOTE | 2023-08-27 09:30 | PN.HOSP_ITS ---
Reason for Visit Reason for Visit: Intractable nausea and vomiting Subjective Subjective Patient is a 78-year-old female with a history of metastatic melanoma who had been on immunotherapy and follows with Dr. Palma who presents emergency department at [facility] on 08/26/2023 due to intractable nausea with dry heaving and unable to tolerate oral intake along with epigastric pain. 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 They been slowly weaning her steroids over time. She also was recently diagnosed with pulmonary embolism in June and placed on anticoagulation. Clot burden was quite large. Recent MRI of the spine and bone scan showed multiple incidental osseous hemangiomas and degenerative changes in the thoracic and lumbar spine. She was evaluated by orthopedic surgery and they recommended against any kind of surgical intervention. With regards to her reduced oral intake this has been a problem for some time and she was referred to GI as an outpatient however she came to the emergency department due to the inability to eat and only tolerating a couple bites of food with significant epigastric discomfort noted. She reported the pain was dull and aching and occasionally sharp and stabbing. She denied any fever or chills but stated she was not able to keep any food down. Vital signs on presentation were unremarkable. CBC showed a normal white count. Her hemoglobin was low and has been trending down. Platelet count was normal. Her chemistry panel was overall unremarkable. UA was unremarkable. Chest x-ray was unremarkable. CT of the abdomen pelvis was overall unremarkable other than some mild splenomegaly. She was given IV fluids and antiemetics in the emergency department. The case was discussed with Dr. Antonio from gastroenterology who stated he would see her in consult and probably do an endoscopy on Sunday. This morning the patient states that her pain and nausea and vomiting have improved and she has been able to tolerate some clear liquids. She has been able to tolerate her oral pills. Pain has been persistent in the epigastrium and abdominal region. She also complains of increased aching in her legs which she experienced previously with dose reduction of her steroids. She is unclear on what her home steroid dose is however her last prescription was for 30 mg and that was ordered on 07/27/2023. She was only given 5 mg here so we will increase this dose to 20 mg until we can ascertain exactly how much she has been on. Objective Data Objective Data Vital Signs: Vital Signs Temp Pulse Resp BP Pulse Ox O2 Del Method O2 Flow Rate 97.8 F 81 18 128/56 H 100 Room Air 2 08/27/23 08:00 08/27/23 08:00 08/27/23 08:00 08/27/23 08:00 08/27/23 08:00 08/27/23 08:00 08/27/23 03:31 Oxygen Flow Rate (L/min) 2 Oxygen Delivery Method Room Air Weight: 68.5 kg Body Mass Index (BMI) 24.3 Intake & Output: Intake and Output for Last 24 Hours 08/25/23 08/26/23 08/27/23 23:59 23:59 23:59 Intake Total 1610 / 1610 1257 / 1257 Balance 1610 / 1610 1257 / 1257 Lab / Micro Data 08/27/23 05:27 08/27/23 05:27 Labs: Laboratory Results - last 24 hr 08/26/23 12:28: WBC 7.0, RBC 3.23 L, Hgb 9.6 L, Hct 30.3 L, MCV 93.8, MCH 29.7, MCHC 31.7 L, RDW Std Deviation 58.3 H, RDW Coeff of Lynn 17.0 H, Plt Count 296, MPV 9.0, Immature Gran % (Auto) 0.700, Neut % (Auto) 65.2, Lymph % (Auto) 22.0, [place] % (Auto) 11.4 H, Eos % (Auto) 0.4, Baso % (Auto) 0.3, Absolute Neuts (auto) 4.6, Absolute Lymphs (auto) 1.54, Nucleated RBC % 0, Sodium 136, Potassium 4.0, Chloride 105, Carbon Dioxide 24.0, Anion Gap 7, BUN 8, Creatinine 0.60, Est GFR (MDRD) Af Amer 125, Est GFR (MDRD) Non-Af 103, BUN/Creatinine Ratio 13.3, Glucose 98, Calcium 8.1 L, Phosphorus 2.0 L, Magnesium 1.7, Total Bilirubin 0.50, Direct Bilirubin 0.18, AST 19, ALT 18, Alkaline Phosphatase 86, Total Protein 6.0 L, Albumin 2.3 L, Globulin 3.7, Lipase 46 08/26/23 13:25: Urine Color Yellow, Urine Clarity Clear, Urine pH 8.0, Ur Specific [place] 1.010, Urine Protein Negative, Urine Glucose (UA) Normal, Urine Ketones Negative, Urine Occult Blood Negative, Urine Nitrite Negative, Urine Bilirubin Negative, Urine Urobilinogen Normal, Ur Leukocyte Esterase Negative, Urine RBC 0 SEEN, Urine WBC 0 SEEN, Ur Squamous Epith Cells 0 SEEN, Urine Bacteria 0 SEEN, Urine Mucus 0 SEEN 08/27/23 05:27: WBC 5.1, RBC 2.76 L, Hgb 8.2 L, Hct 25.9 L, MCV 93.8, MCH 29.7, MCHC 31.7 L, RDW Std Deviation 58.1 H, RDW Coeff of Lynn 16.9 H, Plt Count 235, MPV 8.7, Immature Gran % (Auto) 1.200 H, Neut % (Auto) 77.2 H, Lymph % (Auto) 10.7 L, [place] % (Auto) 10.3 H, Eos % (Auto) 0.4, Baso % (Auto) 0.2, Absolute Neuts (auto) 3.9, Absolute Lymphs (auto) 0.54 L, Nucleated RBC % 0, Differential Comment SCANNED, Sodium 139, Potassium 3.3 L, Chloride 108 H, Carbon Dioxide 23.0, Anion Gap 8, BUN 6 L, Creatinine 0.40 L, Estim Creat Clear Calc 44.80, Est GFR (MDRD) Af Amer 202, Est GFR (MDRD) Non-Af 167, BUN/Creatinine Ratio 15.2, G lucose 80, Calcium 7.4 L, Total Bilirubin 0.60, AST 16, ALT 15, Alkaline Phos phatase 68, Total Protein 4.7 L, Albumin 1.9 L, Globulin 2.8, Albumin/Globulin Ratio 0.7 L, Amylase 17 L, Lipase 31 Radiography Diagnostic Testing: Radiology Impression Abdomen/Pelvis CT 08/26/23 13:09 IMPRESSION: Senescent changes with no evidence of acute intra-abdominal process or focal inflammation. Normal appendix. Mild splenomegaly. Electronically Signed: Candido Goetz DO at 14:16 EST , Chest X-Ray 08/26/23 14:51 IMPRESSION: There are no acute findings. Electronically Signed: Erasmo Lewis MD at 15:14 EST Reading Location ID and State: [facility] / [place] , Service support , Physical Exam Const alert, oriented x3, no apparent distress and average body habitus; Negative for healthy appearing or well nourished Constitutional Narrative: Older, white female, sitting up in bed, nursing at bedside, patient currently appears comfortable and nontoxic, watching television HEENT head/scalp atraumatic and moist oral mucous membranes HEENT Narrative: Mallampati 2-3, no thrush Head and Scalp: normocephalic Resp normal respiratory effort, no retractions, no use of accessory muscles and clear to auscultation bilaterally Auscultation: Negative for rales, rhonchi or wheezes Cardio regular rate, regular rhythm, S1 normal heart sound, S2 normal heart sound, no murmurs, no rub, no gallops and no clicks GI normal to inspection, nondistended, normoactive bowel sounds and soft to palpation GI Narrative: Patient with some tenderness in the epigastrium area which in turn with palpation gives her some dry heaving but no emesis Extremity no clubbing, cyanosis or edema Extremity Narrative: Pedal pulses are 2+ Neuro oriented x3, moves all extremities and no focal motor deficits Speech: speech normal Psych affect normal Psych Narrative: Eye contact is good, patient interacts appropriately and normally Assessment & Plan Assessment/Plan (1) Abdominal pain: (2) Acute anemia: (3) Declining functional status: (4) Debility: (5) Intractable nausea and vomiting: PLAN: Plan Intractable nausea and vomiting/epigastric pain -Concerning for gastritis versus esophagitis versus ulceration -Continue IV fluids -Okay for clear liquids -Continue IV PPI -Continue Carafate if able to tolerate p.o. -Gastroenterology evaluation for possible endoscopy tomorrow Suspected malnutrition -Ensure clear supplements if patient can tolerate -Dietary consult pending Failure to thrive/debility -Anticipate multifactorial -PT/OT consultation -Case management and social work consultation to assist with discharge planning -Suspect patient at the very least will need home health at discharge however may need placement depending on functional status Hypokalemia/hypophosphatemia -K-Phos bolus -Continue home potassium as patient is tolerating -Repeat lab in a.m. for resolution Acute anemia -Hemoglobin has been trending down since mid June when she was started on Eliquis for PE -Baseline hemoglobin prior to June was 12-14 -Has slowly trended down to the point where she is 8.2 at this time -Protonix and Carafate as noted above -Concern for some GI loss -Check iron studies and guaiac stool -Patient is fully anticoagulated for history of DVT/PE--> will continue for now but may need to consider discontinuation if guaiac stool was positive -Patient was diagnosed with an occlusive thrombus on 07/05/2023 -GI consultation is pending PE/DVT -Patient was diagnosed with occlusive thrombus in the left pulmonary artery with nonocclusive clot in the distal peripheral branches of the right pulmonary artery with moderate thrombus in the mid and distal half of the left main pulmonary artery with no saddle embolus on 07/05/2023 -Has been on Eliquis since that point in time -Hemoglobin has down trended since then as well -Will continue Eliquis for now but may need to hold temporarily if patient seems to be having an acute GI bleed Metastatic melanoma -Had been maintained on immunotherapy however recent issues with immunotherapy related colitis -Patient had severe diarrhea that required high-dose steroids -Follows with Dr. Palma--> will discuss with him further tomorrow -Recommend ongoing outpatient follow-up Hypertension -Continue home medications with lisinopril and metoprolol -As needed IV hydralazine is available -May need to consider IV replacement if p.o. intake remains problematic Hyperlipidemia -Continue home statin Immunotherapy related colitis -Continue low-dose steroid -Outpatient follow-up with Dr. Palma Adrenal insufficiency -Continue prednisone therapy History of GERD -Continue PPI and Carafate if patient tolerates History of cerebellar stroke -Continue risk factor modification History of epilepsy -Patient follows as an outpatient with Dr. Hughes -Does not take any antiepileptic medication -Monitor Mild cognitive impairment -Mentation currently seems at baseline History of tobacco abuse -Remote DVT prophylaxis -Currently fully anticoagulated for recent PE CODE STATUS -Full code is verified on admission Charges/Coding Visit Charges Inpatient E&M: 52549 Subs Hosp L2
[2023-08-27 09:50] LABS: Platelet Count 245 K/mm3 (150-450); RET-HE 31.3 pg (30-35); Reticulocyte Count 3.58 % (0.5-1.5)
[2023-08-27 10:03] LABS: Ferritin 252 ng/mL (8-252); Iron 29 ug/dL (50-170); Iron Binding Capacity,Total 147 ug/dL (250-450); PERCENT IRON SATURATION 19.7 % (15.0-55.0)
[2023-08-27] MEDS: Pantoprazole Sodium 40 MG in 0.9% Normal Saline (100mL MB+) 100 ML 330 MG IV ×2 (10:10→22:05)
[2023-08-27] MEDS: Potassium Phosphate 30 MM in 0.9% Normal Saline (250mL Bag) 250 ML 42 MM IV (11:33)
--- NOTE | 2023-08-27 12:00 | CON.PCM.GI_ITS ---
HPI Consult Data Date of Consult: 08/27/23 HPI Narrative Reason for Consultation: abdominal pain and nausea HPI Narrative: MISTI HUERTA, is a 78 F who presents with generalized weakness, abdominal pain with nausea, confusion. She has a past medical history of PE and DVT on anticoagulation, Seizure disorder, Adrenal insufficiency, Metastatic melanoma on immunotherapy following with Dr. Palma. This was complicated by immunotherapy induced colitis treated with infliximab and steroids. recent discharge from w/ significant debility, inability to walk with lower extremity weakness and failure to thrive with poor oral intake ability and epigastric discomfort. MRI of the spine as well as a bone scan with multiple incidental osseous hemangiomas and degenerative changes in the thoracic and lumbar spin. She is complaining of inability to eat with nausea and dry heaving only able to tolerate a couple bites with epigastric discomfort noted to be constant although worse with any oral intake attempts In the ED included T94, heart rate 60 WBC 7.0, hemoglobin 0.6, MCV 93.8, platelet 296 without marked shift, CMP not marked appearing, lipase 46, urinalysis unremarkable, chest x-ray with no acute cardiopulmonary findings, CT abdomen and pelvis with senescent changes with no evidence of any acute intra- abdominal process or focal inflammation with normal-appearing appendix and mild splenomegaly. Patient ministered maintenance IV fluids. [facility] Medical History (Updated 08/28/23 @ 11:[address] 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 Mild cognitive impairment Myeloma Polyneuropathy Post-menopausal Seizures Home Medications metoprolol succinate 50 mg tablet,extended release 24 hr 50 mg PO DAILY heart rate ##0 08/15/20 [Rx Last Taken 08/26/23 10:00] atorvastatin 40 mg tablet 40 mg PO DAILY cholesterol 09/24/20 [History Last Taken 08/26/23 10:00] melatonin 5 mg capsule 3 mg PO QHS PRN Sleep 10/26/20 [History Last Taken 09/12/22] lisinopril 20 mg tablet 20 mg PO DAILY blood pressure 07/13/23 [History Last Taken 08/26/23 10:00] acetaminophen 500 mg tablet 1,000 mg (2 x 500 mg) PO Q6H PRN PRN Pain Score 1-5 #0 tabs 07/27/23 [Rx Last Taken Unknown] apixaban 5 mg tablet (Eliquis) 5 mg PO BID blood thinner 30 days #60 tabs 07/27/23 [Rx Last Taken 08/26/23 10:00] potassium chloride 20 mEq tablet,extended release(part/cryst) (Klor-Con M) 20 meq PO BIDCM supplement 30 days #60 tabs 07/27/23 [Rx Last Taken 08/26/23 09:00] nystatin 100,000 unit/mL oral suspension 5 ml PO Q8H PRN PRN thrush 08/26/23 [History Last Taken Unknown] omeprazole 20 mg capsule,delayed release 20 mg PO DAILY gerd 08/26/23 [History Last Taken 08/26/23 10:00] ondansetron HCl 8 mg tablet 8 mg PO Q8H PRN nausea 08/26/23 [History Last Taken 08/25/23] prednisone 10 mg tablet 5 mg PO DAILYCM colitis 08/26/23 [History Last Taken 08/26/23 10:00] sucralfate 1 gram tablet 1 g PO Q6H colitis 08/26/23 [History Last Taken 08/26/23 17:00] Allergy/AdvReac Type Severity Reaction Status Date / Time Sulfa (Sulfonamide Allergy Unknown NEEDS Verified 08/26/23 11:56 Antibiotics) FOLLOW-UP amoxicillin AdvReac Severe Diarrhea Verified 08/26/23 11:56 sulfamethoxazole AdvReac Severe Anaphylaxis Verified 08/26/23 11:56 [From Bactrim] trimethoprim [From Bactrim] AdvReac Swelling Verified 08/26/23 11:56 Family History Brother Alcoholism Asthma Myocardial infarction, Onset Age: 52 Seizures Skin cancer Sister CVA (cerebral vascular accident) Asthma Grandfather Asthma Father Myocardial infarction, Onset Age: 46 Had at age 46 & 62 Mother Myocardial infarction, Onset Age: 82 Surgical History History of amputation of finger History of cataract surgery History of eye surgery History of right hip replacement History of total left hip replacement Social History household members: spouse Smoking Status: Former smoker Tobacco: How many years used: 30 how long ago did patient quit smokin years ago second hand exposure: No alcohol intake: current alcohol intake frequency: holidays/special occasions only Alcohol type: wine substance use type: does not use amy/holiness: None seatbelt use: always ROS ROS Narrative Admission Review of Systems: CONSTITUTIONAL: No weight loss, fever, chills, + weakness or fatigue. HEENT: Eyes: No visual loss, blurred vision, double vision or yellow sclerae. Ears, Nose, Throat: No hearing loss, sneezing, congestion, runny nose or sore throat. SKIN: No rash or itching, lesions, wounds. CARDIOVASCULAR: + Edema. No chest pain, chest pressure or chest discomfort, palpitations, orthopnea, syncopal events. RESPIRATORY: No shortness of breath, cough or sputum, wheezing, hemoptysis. GASTROINTESTINAL: + anorexia, nausea, vomiting, abdominal pain. No diarrhea, melena, BRBPR. GENITOURINARY: No dysuria, frequency, urgency or retention. NEUROLOGICAL: + BL LE generalized weakness, debility, seiziure history. No headache, dizziness, syncope, paralysis, ataxia, numbness or tingling in the extremities, focal weakness, change in bowel or bladder control, seizure. MUSCULOSKELETAL: + muscle, back pain, joint pain or stiffness. HEMATOLOGIC: + anemia, easy bleeding/bruising. LYMPHATICS: No enlarged nodes. No history of splenectomy. PSYCHIATRIC: No history of depression or anxiety. ENDOCRINOLOGIC: No reports of sweating, cold or heat intolerance. No polyuria or polydipsia. ALLERGIES: + History of anaphylaxis. Physical Exam Const alert, oriented x3, no apparent distress and average body habitus; Negative for healthy appearing or well nourished Constitutional Narrative: Older, white female, sitting up in bed, nursing at bedside, at bedside, patient currently appears comfortable and nontoxic HEENT head/scalp atraumatic and moist oral mucous membranes HEENT Narrative: Mallampati 2, no thrush Head and Scalp: normocephalic Resp normal respiratory effort, no retractions, no use of accessory muscles and clear to auscultation bilaterally Auscultation: Negative for rales, rhonchi or wheezes Cardio regular rate, regular rhythm, S1 normal heart sound, S2 normal heart sound, no murmurs, no rub, no gallops and no clicks GI normal to inspection, nondistended, normoactive bowel sounds and soft to palpation GI Narrative: Patient with some tenderness in the epigastrium area which in turn with palpation gives her some dry heaving but no emesis, no pain in lower quadrants Extremity no clubbing, cyanosis or edema Extremity Narrative: Pedal pulses are 2+ Neuro oriented x3, moves all extremities and no focal motor deficits Speech: speech normal Psych affect normal Psych Narrative: Eye contact is good, patient interacts appropriately and normally Medical Records Data Medical Nutrition Assessment Dietitian: Malnutrition Criteria Met Start: 08/27/23 13:19 Freq: Status: Active Protocol: Document 08/27/23 13:20 LO (Rec: 08/27/23 13:20 [id number]) Nutrition Malnutrition Evidence of Malnutrition Exists Yes Malnutrition (severe): Chronic Evidenced By Suboptimal Energy Intake ( Severe),Weight Loss (Severe) Clinical Problem Chronic Disease or Condition Related Malnutrition Etiology severe related to inadequte energy intake with GI dysfunction Signs/Symptoms as evidenced by 14.6% weight loss in 3.5 months and estimated <75% PO intake for > 1 month Status Active Problem Recommendation Dietitian Recommendations/Changes ADAT to Regular when medically able to optimize oral intakes . Continue Ensure Clear with meals and will discontinue Ensure Clear with medpass. Lab / Micro Data 08/28/23 06:25 08/28/23 06:25 Labs: Laboratory Results - last 24 hr 08/27/23 22:15: Urine Test Negative 08/28/23 05:52: POC Glucose 82 08/28/23 06:25: WBC 4.9, RBC 2.88 L, Hgb 8.6 L, Hct 27.1 L, MCV 94.1, MCH 29.9, MCHC 31.7 L, RDW Std Deviation 58.1 H, RDW Coeff of Lynn 16.8 H, Plt Count 262, MPV 8.5, Immature Gran % (Auto) 0.600, Neut % (Auto) 64.9, Lymph % (Auto) 23.2, [place] % (Auto) 10.5 H, Eos % (Auto) 0.6, Baso % (Auto) 0.2, Absolute Neuts (auto) 3.2, Absolute Lymphs (auto) 1.13, Nucleated RBC % 0, PT 19.3 H, INR 1.6, APTT 65.0 H, Sodium 138, Potassium 3.2 L, Chloride 111 H, Carbon Dioxide 22.0, Anion Gap 5, BUN 3 L, Creatinine 0.49 L, Estim Creat Clear Calc 44.80, Est GFR (MDRD) Af Amer 159, Est GFR (MDRD) Non-Af 131, BUN/Creatinine Ratio 6.1 L, Glucose 84, Calcium 7.8 L, Phosphorus 2.5, Magnesium 1.5 L, Vitamin B12 1275 H, Folate 17.10, TSH 0.80 Imagaing Radiology Impression Brain CT 08/28/23 06:12 IMPRESSION: No acute abnormality. Chronic microvascular ischemic disease. Electronically Signed: Vidya Diggs MD at 7:33 EST , Assessment & Plan Assessment/Plan (1) Gastritis: PLAN: Plan The patient is a 78 y/o F with Metastatic melanoma on immunotherapy following with Dr. Palma with prior admission with regimen associated colitis with a relapse on infliximab and steroids. She was recent discharge from w/ sign ificant debility, inability to walk with lower extremity weakness and failure to thrive with poor oral intake ability and epigastric discomfort. Since discharge continued inability to eat with nausea and dry heaving only able to tolerate a couple bites with epigastric discomfort. Differential diagnosis for intractable nausea, dry heaves, inability to tolerate oral intake with epigastric discomfort concerning for acute candidiasis induced esophagitis, viral associated esophagitis, peptic ulcer disease, neoplastic metastasis to the upper GI tract. She will undergo an upper endoscopy to yassine luate upper GI tract. She was explained alternatives, risk, benefits including not withstanding bleeding, infection, sepsis, perforation, need for emergent surgery and . She have an ASA of 3. Charges/Coding Visit Charges Inpatient E&M: 26472 Init Hosp L3
[2023-08-27 15:00] VITALS: BP 117/58; PULSE 78; RESP 16; TEMP 36.6; O2SAT 98
[2023-08-27] MEDS: 0.9% Saline Lock 10 ML Syringe IV (16:40)
[2023-08-27 20:04] VITALS: BP 128/62; PULSE 87; RESP 16; TEMP 37.1; O2SAT 100
[2023-08-27] MEDS: Atorvastatin Calcium 40 MG Tablet PO (22:06)
[2023-08-27 22:41] LABS: Internal QC Validated? YES +Cl - CLEAR BKGD; Pregnancy, Urine Negative Negative; Record Kit Lot#,Urine Preg 667200
[2023-08-28] VITALS (13 sets, daily range): BP systolic 113–156; BP diastolic 54–69; PULSE 83–118; RESP 16–18; TEMP 36.3–37.6; O2SAT 93–98; BMI 24.2; BMI 24.3
--- NOTE | 2023-08-28 | EGD_PTH ---
PATHOLOGY RESULTS PATIENT: MISTI HUERTA LOC: MS3 U#:[id number] AGE/SX: 78/F ROOM: [facility] [place]/[address]: Dr. Ramya Maradiaga DO : 1945 BED: 1 DIS: 08/29/2023 SPEC #: [id number] RECD: 08/29/23 08:30 STATUS: JOSE RAMON REQ #: [id number] MAYA: 08/28/23 00:[address]: Jason Antonio DEPT: SURGICAL PATHOLOGY RECD BY: Dominique Gonzales ENTERED: 08/29/23 08:31 SP TYPE: EGD BIOPSY OTHR DR: MD Dr. Ramya Kaplan DO Dr. Stephen Cullen, MD Tissues: Duodenum, NOS Procedures: Gen Path Consultation (on slides) Surgery Specimen Level IV Comments: @ Ordering doctor for SUIV edited from to @ by BRIGIDO at 08/30/23 0753 @ Submitting doctor edited from to @ by DENAOD at 08/30/23 0753 HEADER OPERATION: EGD PRE-OP DIAGNOSIS: Abdominal pain/intractable nausea and vomiting TISSUE SUBMITTED: Proximal duodenum biopsy MICROSCOPIC DIAGNOSIS Proximal duodenum, biopsy: Fragments of adenomatous polyp. AM:jesús 08/30/2023 COMMENT Case has been reviewed in consultation with Dr. Thayer who concurs with the above diagnosis. LUISANA:STEPHANY MICROSCOPIC DESCRIPTION Slides are reviewed. GROSS DESCRIPTION Received in fixative is one container labeled with the patient's name and designated proximal duodenum. The specimen consists of multiple irregular fragments of light thompson soft tissue that in aggregate measure 1.5 x 0.6 x 0.1 cm. The specimen is totally submitted in one cassette. / SJ:jesús 08/29/2023 TC:5 CPT: 14868 ADDENDUM ADDENDUM 09/06/2023 11:20 This case is seen in consultation with Dr. Manzo of [employer]. There is no evidence of high-grade dysplasia. The complete consultative report is viewable in EMR. AM:jesús 09/06/2023
[2023-08-28] MEDS: 0.9% Normal Saline (1000mL) 1,000 ML 100 ML IV ×3 (03:20→22:58)
[2023-08-28] MEDS: Ondansetron 4 MG/2 ML Vial IV (04:15)
[2023-08-28] MEDS: Acetaminophen 325 MG Tablet 650 MG PO (05:57)
--- NOTE | 2023-08-28 06:12 | CT_ITS ---
INDICATION: unwitnessed fall with anticoagulation EXAMINATION: CT BRAIN - CT Head or Brain W/O Contrast Injection TECHNIQUE: Multiple axial images were obtained of the head without intravenous contrast. A radiation dose optimization technique was used for this scan. IV Contrast dosage and agent: None. RADIATION DOSAGE (If Supplied By Facility): CTDIvol = ( 44.99 ) mGy, DLP = ( 796.11 ) mGycm COMPARISON: CT head 05/11/2023 FINDINGS: BRAIN: No acute bleed. No edema. Decreased attenuation in the periventricular white matter bilaterally. Quinones-white matter differentiation is maintained. Arterial calcifications. VENTRICLES AND SULCI: The ventricles are not dilated. The sulci are. EXTRA-AXIAL: No hemorrhage, fluid collection, or mass. CALVARIUM / SKULL BASE: Unremarkable. FACE/SINUSES: Unremarkable. SOFT TISSUES: Unremarkable. CT/Brain/Head without Contrast IMPRESSION: No acute abnormality. Chronic microvascular ischemic disease. Electronically Signed: Vidya Diggs MD at 7:33 EST ,
[2023-08-28 06:21] LABS: Bedside Glucose 82 mg/dL (74-106)
[2023-08-28 06:37] LABS: Absolute Lymphocyte Count 1.13 X10^3/uL (0.83-4.51); Absolute Neutrophil Count 3.2 X10^3/uL (2.0-7.7); Basophil# 0.01 X10^3/uL; Basophil% 0.2 % (0-1); Eosinophil# 0.03 X10^3/uL; Eosinophils% 0.6 % (0-5); Hematocrit 27.1 % (37-47); Hemoglobin 8.6 g/dL (12.0-15.0); Lymphocyte # 1.13 X10^3/ul (0.83-4.51); Lymphocyte % 23.2 % (19-41); Mean Corp Hgb Conc 31.7 g/dL (32-36); Mean Corpuscular Hgb 29.9 pg (27.0-32.0); Mean Corpuscular Volume 94.1 fL (81-99); Mean Platelet Vol. 8.5 fl (6.2-12.0); Monocyte# 0.51 X10^3/uL; Monocyte% 10.5 % (0-10); NRBC Flagged by Analyzer 0 % (0-5); Neutrophil # 3.17 X10^3/uL (2.7-7.7); Neutrophil % 64.9 % (47-70); Platelet Count 262 K/mm3 (150-450); RBC Distribution Width CV 16.8 % (11.6-14.6); RBC Distribution Width SD 58.1 fl (35.1-43.9); Red Blood Count 2.88 M/mm3 (4.2-5.4); White Blood Count 4.9 K/mm3 (4.4-11.0)
[2023-08-28 06:46] LABS: International Normalized Ratio 1.6; Prothrombin Time (Protime)PT. 19.3 SECONDS (11.7-14.9)
[2023-08-28 07:02] LABS: Anion Gap 5 (5-15); BUN 3 mg/dL (7-18); BUN/Creat Ratio 6.1 RATIO (10-20); Calcium,Total 7.8 mg/dL (8.5-10.1); Chloride 111 mmol/L (98-107); Creatinine, Serum 0.49 mg/dL (0.55-1.02); EST Glomerular Filtration Rate 131 mL/min (>60); Est Glom Filt Rate - Afr Amer 159 mL/min (>60); Glucose 84 mg/dL (74-106); Magnesium 1.5 mg/dL (1.6-2.6); Phosphorus 2.5 mg/dL (2.5-4.9); Potassium 3.2 mmol/L (3.5-5.1); Sodium Level 138 mmol/L (136-145)
[2023-08-28 09:46] LABS: Vitamin B12 1275 pg/mL (211-911)
[2023-08-28] MEDS: Pantoprazole Sodium 40 MG in 0.9% Normal Saline (100mL MB+) 100 ML 330 MG IV (10:34)
--- NOTE | 2023-08-28 11:26 | PCM.PN.HOSP ---
Reason for Visit Reason for Visit: Abdominal pain/intractable nausea and vomiting Subjective Subjective Patient slid out of bed last night. No injury. CT of brain was negative. Still with intermittent nausea and dry heaving. It seems to come and go. Leg pain is better and seem to respond well to gabapentin so we will start 200 mg twice daily. Did discuss the need for possible IVC filter depending on findings with EGD given the fact that she has been requiring anticoagulation. at bedside and both she and voiced understanding. All questions answered. Objective Data Objective Data Vital Signs: Vital Signs Temp Pulse Resp BP Pulse Ox O2 Del Method O2 Flow Rate 98 F 83 18 127/60 H 97 Room Air 2 08/28/23 10:30 08/28/23 10:30 08/28/23 10:30 08/28/23 10:30 08/28/23 10:30 08/28/23 10:30 08/27/23 03:31 Oxygen Flow Rate (L/min) 2 Oxygen Delivery Method Room Air Weight: 68.3 kg Body Mass Index (BMI) 24.2 Intake & Output: Intake and Output for Last 24 Hours 08/26/23 08/27/23 08/28/23 23:59 23:59 23:59 Intake Total 1610 / 1610 2737 / 3037 2233.33 / 2233.33 Balance 1610 / 1610 2737 / 3037 2233.33 / 2233.33 Medical Nutrition Assessment Dietitian: Malnutrition Criteria Met Start: 08/27/23 13:19 Freq: Status: Active Protocol: Document 08/27/23 13:20 LO (Rec: 08/27/23 13:20 [id number]) Nutrition Malnutrition Evidence of Malnutrition Exists Yes Malnutrition (severe): Chronic Evidenced By Suboptimal Energy Intake ( Severe),Weight Loss (Severe) Clinical Problem Chronic Disease or Condition Related Malnutrition Etiology severe related to inadequte energy intake with GI dysfunction Signs/Symptoms as evidenced by 14.6% weight loss in 3.5 months and estimated <75% PO intake for > 1 month Status Active Problem Recommendation Dietitian Recommendations/Changes ADAT to Regular when medically able to optimize oral intakes . Continue Ensure Clear with meals and will discontinue Ensure Clear with medpass. Lab / Micro Data 08/28/23 06:25 08/28/23 06:25 Labs: Laboratory Results - last 24 hr 08/27/23 22:15: Urine Test Negative 08/28/23 05:52: POC Glucose 82 08/28/23 06:25: WBC 4.9, RBC 2.88 L, Hgb 8.6 L, Hct 27.1 L, MCV 94.1, MCH 29.9, MCHC 31.7 L, RDW Std Deviation 58.1 H, RDW Coeff of Lynn 16.8 H, Plt Count 262, MPV 8.5, Immature Gran % (Auto) 0.600, Neut % (Auto) 64.9, Lymph % (Auto) 23.2, [place] % (Auto) 10.5 H, Eos % (Auto) 0.6, Baso % (Auto) 0.2, Absolute Neuts (auto) 3.2, Absolute Lymphs (auto) 1.13, Nucleated RBC % 0, PT 19.3 H, INR 1.6, APTT 65.0 H, Sodium 138, Potassium 3.2 L, Chloride 111 H, Carbon Dioxide 22.0, Anion Gap 5, BUN 3 L, Creatinine 0.49 L, Estim Creat Clear Calc 44.80, Est GFR (MDRD) Af Amer 159, Est GFR (MDRD) Non-Af 131, BUN/Creatinine Ratio 6.1 L, Glucose 84, Calcium 7.8 L, Phosphorus 2.5, Magnesium 1.5 L, Vitamin B12 1275 H, Folate 17.10, TSH 0.80 Radiography Diagnostic Testing: Radiology Impression Brain CT 08/28/23 06:12 IMPRESSION: No acute abnormality. Chronic microvascular ischemic disease. Electronically Signed: Vidya Diggs MD at 7:33 EST , Physical Exam Const alert, oriented x3, no apparent distress and average body habitus; Negative for healthy appearing or well nourished Constitutional Narrative: Older, white female, sitting up in bed, nursing at bedside, at bedside, patient currently appears comfortable and nontoxic HEENT head/scalp atraumatic and moist oral mucous membranes HEENT Narrative: Mallampati 2, no thrush Head and Scalp: normocephalic Resp normal respiratory effort, no retractions, no use of accessory muscles and clear to auscultation bilaterally Auscultation: Negative for rales, rhonchi or wheezes Cardio regular rate, regular rhythm, S1 normal heart sound, S2 normal heart sound, no murmurs, no rub, no gallops and no clicks GI normal to inspection, nondistended, normoactive bowel sounds and soft to palpation GI Narrative: Patient with some tenderness in the epigastrium area which in turn with palpation gives her some dry heaving but no emesis, no pain in lower quadrants Extremity no clubbing, cyanosis or edema Extremity Narrative: Pedal pulses are 2+ Neuro oriented x3, moves all extremities and no focal motor deficits Speech: speech normal Psych affect normal Psych Narrative: Eye contact is good, patient interacts appropriately and normally Assessment & Plan Assessment/Plan (1) Abdominal pain: (2) Acute anemia: (3) Declining functional status: (4) Debility: (5) Intractable nausea and vomiting: (6) Hypomagnesemia: PLAN: Plan Intractable nausea and vomiting/epigastric pain -Concerning for gastritis versus esophagitis versus ulceration -CT of the abdomen pelvis was unremarkable including normal appearing gallbladder -LFTs are unremarkable as well -Lipase within normal limits -Continue IV fluids at 100 cc/h -N.p.o. for EGD -Continue IV PPI -Continue antiemetics IV -Add scopolamine patch -Continue Carafate if able to tolerate p.o. -Gastroenterology consulted and plan is for EGD later today Suspected malnutrition -Ensure clear supplements if patient can tolerate -Dietary consult pending Failure to thrive/debility -Anticipate multifactorial -PT/OT following -Case management and social work consultation to assist with discharge planning -Suspect patient at the very least will need home health at discharge however may need placement depending on functional status Hypokalemia/hypophosphatemia -Phosphorus has normalized however potassium is still low -Repeat IV potassium replacement with potassium chloride -Magnesium level is low -Repeat lab in a.m. for resolution Hypomagnesemia -Replace with 2 g and repeat in a.m. Acute anemia -Hemoglobin has been trending down since mid June when she was started on Eliquis for PE -Baseline hemoglobin prior to June was 12-14 -8.2 yesterday and stable at 8.6 today -Protonix and Carafate as noted above -Concern for some GI loss -Iron studies are not consistent with iron deficiency anemia, B12 is normal, folate is normal, TSH is normal -If bleeding noted on EGD will dose some IV iron -Patient is fully anticoagulated for history of DVT/PE--> will continue for now but may need to consider discontinuation if guaiac stool was positive -Patient was diagnosed with an occlusive thrombus on 07/05/2023 -May need to consider IVC filter if acute bleeding is found and GI feels like she should come off Eliquis -GI consultation is pending but I did discuss the case with Dr. Antonio and plan is for EGD later today PE/DVT -Patient was diagnosed with occlusive thrombus in the left pulmonary artery with nonocclusive clot in the distal peripheral branches of the right pulmonary artery with moderate thrombus in the mid and distal half of the left main pulmonary artery with no saddle embolus on 07/05/2023 -Has been on Eliquis since that point in time -Hemoglobin has down trended since then as well -Will continue Eliquis for now but may need to hold temporarily if patient seems to be having an acute GI bleed -If GI recommended patient to come off Eliquis may need to consider IVC filter Metastatic melanoma -Had been maintained on immunotherapy however recent issues with immunotherapy related colitis -Patient had severe diarrhea that required high-dose steroids -Follows with Dr. Palma--> patient had been responding well to therapy however had significant side effects and plan is to restage -Patient did have PET scan tomorrow however it is at 11 AM and I have asked her to cancel this is I doubt she will be ready for discharge by then -Recommend ongoing outpatient follow-up Hypertension -At goal -Continue home medications with lisinopril and metoprolol -As needed IV hydralazine is available -May need to consider IV replacement if p.o. intake remains problematic Hyperlipidemia -Continue home statin Immunotherapy related colitis -Continue low-dose steroid--> currently on 5 mg daily -Outpatient follow-up with Dr. Palma Adrenal insufficiency -Continue prednisone therapy History of GERD -Continue PPI and Carafate if patient tolerates History of cerebellar stroke -Continue risk factor modification History of epilepsy -Patient follows as an outpatient with Dr. Hughes -Does not take any antiepileptic medication -Monitor Mild cognitive impairment -Mentation currently seems at baseline History of tobacco abuse -Remote DVT prophylaxis -Currently fully anticoagulated for recent PE CODE STATUS -Full code is verified on admission Charges/Coding Visit Charges Inpatient E&M: 67550 Subs Hosp L2
[2023-08-28] MEDS: Magnesium Sulfate 2 GM in Dextrose 5%-Water (100mL Bag) 100 ML IV (12:02)
[2023-08-28] MEDS: Potassium Chloride 10mEq/100mL 10 MEQ/100 ML IV.SOLN. 100 MEQ IV BOLUS ×4 (12:02→16:05)
--- NOTE | 2023-08-28 12:19 | NURSING ---
Pt's IV potassium chloride doses delayed d/t needing new IV access. IV access obtained and potassium started late
--- NOTE | 2023-08-28 12:30 | CASEMGMT ---
SHI WILLIAM Assessment Face to Face with patient for initial transition planning/care coordination assessment. SHI WILLIAM introduced self and role at [facility], pt voices understanding. Pt is A&Ox4 and is resting comfortably in bed and is calm. Pt at bedside. Care providers, pharmacy, and demographics verified. Admitting dx: FFT, Pain LACE Strata: 4 PCP: [facility] Specialists: Masci- Oncologist JACOBO Palacios. Gps Navigation Installer [facility] Preferred [facility]acy: [facility] Insurance: [facility] for Life Prescription Benefit: Yes LNOK: Timbo Terry () Living Arrangements: Pt states living in a 2 story home with a basement with her . Pt has a FFSU. States there are 2 steps to enter the home with a handrail. Pt states the up and downstairs are equipped with hand rails. ADLs/IADLs: Pt states she is normally independent at home but has had increased weakness recently and is requiring more help. Pt and pt spouse state the is able to help with ADLs/ IADLs as needed. Transportation: drives DME: Pt uses a wheeled walker. 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 Shower chair with grab bar. Denies home O2 use. HHC/SNF: Pt states she was here for 16 days in the inpt rehab unit. Pt also states she has had PT HHC in 2021 after a hip replacement. Pt also states current [facility] SN & PT HHC due to increased weakness in her legs 2 times per week. Pt goal/Plan: Pt states she feels OK with being DC home with her SO with a resumption in HHC Lalitha Celaya RN, CM
--- NOTE | 2023-08-28 14:16 | OP.EGD_ITS ---
Patient Name: Shikha Terry Procedure Date: 08/28/2023 1:37 PM Date of : 1945 Age: 78 Procedure: Upper GI endoscopy Indications: Epigastric abdominal pain Providers: Jason Antonio DO Medicines: Monitored Anesthesia Care Patient Profile: This is a 78 year old female. Refer to note in patient chart for documentation of history and physical. Patient has symptoms of chronic epigastric abdominal pain. Complications: No immediate complications. Procedure: Pre-Anesthesia Assessment: - Prior to the procedure, a History and Physical was performed, and patient medications and allergies were reviewed. The patient is competent. The risks and benefits of the procedure and the sedation options and risks were discussed with the patient. All questions were answered and informed consent was obtained. Patient identification and proposed procedure were verified by the physician in the pre-procedure area. Mental Status Examination: alert and oriented. Airway Examination: normal oropharyngeal airway and neck mobility. Respiratory Examination: clear to auscultation. CV Examination: normal. Prophylactic Antibiotics: The patient does not require prophylactic antibiotics. Prior Anticoagulants: The patient has taken no anticoagulant or antiplatelet agents. ASA Grade Assessment: III - A patient with severe systemic disease. After reviewing the risks and benefits, the patient was deemed in satisfactory condition to undergo the procedure. The anesthesia plan was to use monitored anesthesia care (MAC). Immediately prior to administration of medications, the patient was re-assessed for adequacy to receive sedatives. The heart rate, respiratory rate, oxygen saturations, blood pressure, adequacy of pulmonary ventilation, and response to care were monitored throughout the procedure. The physical status of the patient was re-assessed after the procedure. After obtaining informed consent, the endoscope was passed under direct vision. Throughout the procedure, the patient's blood pressure, pulse, and oxygen saturations were monitored continuously. The Endoscope was introduced through the mouth, and advanced to the second part of duodenum. The upper GI endoscopy was accomplished without difficulty. The patient tolerated the procedure well. Scope In: 1:50:47 PM Scope Out: 2:00:51 PM Total Procedure Duration Time 0 hours 10 minutes 4 seconds Findings: The examined esophagus was normal. The entire examined stomach was normal except for a mass protuding through the pylorus into the stomach causing a ball valve effect A medium-sized frond-like/villous mass with no bleeding was found in the duodenal bulb. Biopsies were taken with a cold forceps for histology. Verification of patient identification for the specimen was done. Estimated blood loss was minimal. Impression: - Normal esophagus. - Normal stomach, except for a mass protuding through the pylorus into the stomach causing a ball valve effect - Rule out malignancy, duodenal mass. Biopsied. Recommendation: - [facility]. - Use Protonix (pantoprazole) 40 mg PO daily. - Use metoclopramide 5 mg PO QID; 30 min AC and HS. - Continue present medications. Procedure Code(s): --- Professional --- 54024, Esophagogastroduodenoscopy, flexible, transoral; with biopsy, single or multiple CPT copyright 2021 [employer]. All rights reserved. The codes documented in this report are preliminary and upon photo editor review may be revised to meet current compliance requirements. Jason Antonio DO 08/28/2023 2:16:01 PM This report has been signed electronically. Number of Addenda: 0 Note Initiated On: 08/28/2023 1:37 PM
--- NOTE | 2023-08-28 14:16 | OP.CCLET_ITS ---
08/28/2023 Marvin Malloy Md Re : Upper GI endoscopy procedure for Shikha Terry Dear Gama This procedure was performed on Monday, August 28, 2023. My impressions and recommendations are as follows: Impressions : - Normal esophagus. - Normal stomach, except for a mass protuding through the pylorus into the stomach causing a ball valve effect - Rule out malignancy, duodenal mass. Biopsied. Recommendations : - [facility]. - Use Protonix (pantoprazole) 40 mg PO daily. - Use metoclopramide 5 mg PO QID; 30 min AC and HS. - Continue present medications. My findings are described in the full procedure note, which is enclosed. If I can be of further assistance, please feel free to contact me at . Sincerely, Jason Antonio, 08/28/2023 2:16:01 PM This report has been signed electronically.
[2023-08-28] MEDS: Gabapentin 100 MG Capsule 200 MG PO (17:18)
[2023-08-28] MEDS: Metoclopramide 5 MG TABLET PO ×2 (17:18→20:24)
[2023-08-28] MEDS: Potassium Chloride Oral Tablet 20 MEQ PO (17:23)
[2023-08-28] MEDS: Sucralfate 1 GM Tablet PO ×2 (17:23→20:20)
[2023-08-28] MEDS: APIXABAN 5 MG TABLET PO (20:20)
[2023-08-28] MEDS: Atorvastatin Calcium 40 MG Tablet PO (20:20)
[2023-08-28] MEDS: MELATONIN 3 MG TABLET PO (20:21)
[2023-08-29 02:28] VITALS: BP 137/75; PULSE 88; RESP 16; TEMP 36.4; O2SAT 93
[2023-08-29] MEDS: Sucralfate 1 GM Tablet PO ×2 (05:47→11:53)
[2023-08-29] MEDS: Metoclopramide 5 MG TABLET PO ×2 (05:47→11:53)
[2023-08-29 05:52] VITALS: BMI 24.2
[2023-08-29 07:13] VITALS: O2SAT 93
[2023-08-29] MEDS: Gabapentin 100 MG Capsule 200 MG PO (07:31)
[2023-08-29] MEDS: predniSONE 5 MG Tablet PO (07:32)
[2023-08-29] MEDS: Potassium Chloride Oral Tablet 20 MEQ PO (07:32)
[2023-08-29 07:33] VITALS: PULSE 80
[2023-08-29] MEDS: Pantoprazole Sodium 40 MG Tablet PO (07:33)
[2023-08-29] MEDS: APIXABAN 5 MG TABLET PO (07:33)
[2023-08-29] MEDS: Lisinopril 20 MG Tablet PO (07:33)
[2023-08-29] MEDS: Metoprolol(XL)Succ 50 MG Tablet PO (07:33)
[2023-08-29] MEDS: 0.9% Normal Saline (1000mL) 1,000 ML 100 ML IV (07:34)
[2023-08-29 07:47] LABS: Absolute Lymphocyte Count 0.66 X10^3/uL (0.83-4.51); Absolute Neutrophil Count 2.7 X10^3/uL (2.0-7.7); Basophil# 0.01 X10^3/uL; Basophil% 0.3 % (0-1); Hematocrit 27.7 % (37-47); Hemoglobin 8.7 g/dL (12.0-15.0); Lymphocyte # 0.66 X10^3/ul (0.83-4.51); Lymphocyte % 18.5 % (19-41); Mean Corp Hgb Conc 31.4 g/dL (32-36); Mean Corpuscular Hgb 29.8 pg (27.0-32.0); Mean Corpuscular Volume 94.9 fL (81-99); Mean Platelet Vol. 8.9 fl (6.2-12.0); Monocyte% 5.6 % (0-10); NRBC Flagged by Analyzer 0 % (0-5); Neutrophil # 2.65 X10^3/uL (2.7-7.7); Neutrophil % 74.2 % (47-70); Platelet Count 284 K/mm3 (150-450); RBC Distribution Width CV 16.5 % (11.6-14.6); RBC Distribution Width SD 57.3 fl (35.1-43.9); Red Blood Count 2.92 M/mm3 (4.2-5.4); White Blood Count 3.6 K/mm3 (4.4-11.0)
[2023-08-29 07:49] VITALS: BP 138/75; PULSE 89; RESP 18; TEMP 37.1; O2SAT 100
[2023-08-29 08:11] LABS: Anion Gap 3 (5-15); BUN 5 mg/dL (7-18); BUN/Creat Ratio 11.4 RATIO (10-20); Calcium,Total 7.6 mg/dL (8.5-10.1); Chloride 110 mmol/L (98-107); Creatinine, Serum 0.44 mg/dL (0.55-1.02); EST Glomerular Filtration Rate 148 mL/min (>60); Est Glom Filt Rate - Afr Amer 179 mL/min (>60); Glucose 142 mg/dL (74-106); Potassium 3.9 mmol/L (3.5-5.1); Sodium Level 137 mmol/L (136-145)
--- NOTE | 2023-08-29 12:32 | DS.PCM_ITS ---
Providers Date of Admission: 08/26/23 Date of Discharge: 08/29/23 Primary Care Physician: Dr. Marvin Malloy MD Consultations 08/26/23 16:21 Consult: Gastroenterology Routine Consulting Provider: [facility] Reason for Consult: Epigastric pain, intractable, cannot eat EMERGENT Consult: No MD Notified: Yes Date Notified: 08/26/23 Time Notified: 16:01 Method of Notification: Verbal Reason For Visit: ADULT FFT, INTRACTABLE PAIN Diagnosis Discharge Diagnosis (1) Gastritis: Status: Acute Code(s): K29.70 - Gastritis, unspecified, without bleeding Medications at Discharge Home Medications metoprolol succinate 50 mg tablet,extended release 24 hr 50 mg PO DAILY heart rate ##0 08/15/20 atorvastatin 40 mg tablet 40 mg PO DAILY cholesterol 09/24/20 melatonin 5 mg capsule 3 mg PO QHS PRN Sleep 10/26/20 lisinopril 20 mg tablet 20 mg PO DAILY blood pressure 07/13/23 acetaminophen 500 mg tablet 1,000 mg (2 x 500 mg) PO Q6H PRN PRN Pain Score 1-5 #0 tabs 07/27/23 apixaban 5 mg tablet (Eliquis) 5 mg PO BID blood thinner 30 days #60 tabs 07/27/23 potassium chloride 20 mEq tablet,extended release(part/cryst) (Klor-Con M) 20 meq PO BIDCM supplement 30 days #60 tabs 07/27/23 nystatin 100,000 unit/mL oral suspension 5 ml PO Q8H PRN PRN thrush 08/26/23 ondansetron HCl 8 mg tablet 8 mg PO Q8H PRN nausea 08/26/23 prednisone 10 mg tablet 5 mg PO DAILYCM colitis 08/26/23 sucralfate 1 gram tablet 1 g PO Q6H colitis 08/26/23 metoclopramide HCl 5 mg tablet 5 mg PO Q6 #120 tabs 08/29/23 pantoprazole 40 mg tablet,delayed release 40 mg PO DAILY #30 tabs 08/29/23 scopolamine base 1 mg over 3 days transdermal patch 1 patch transdermal Q3D #4 ea 08/29/23 Hospital Course Procedures EGD and - (CT brain/CT abdomen and pelvis) Summary of Care Provided Minutes Spent on Discharge: 38 Hospital Course: Mrs. Terry is a 78-year-old female with a history of metastatic melanoma who velazquez d been on immunotherapy and follows with Dr. Palma who presents emergency department at [facility] on 08/26/2023 due to intractable nausea with dry heaving and unable to tolerate oral intake along with epigastric pain. 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 They been slowly weaning her steroids over time. She also was recently diagnosed with pulmonary embolism in June and placed on anticoagulation. Clot burden was quite large. Recent MRI of the spine and bone scan showed multiple incidental osseous hemangiomas and degenerative changes in the thoracic and lumbar spine. She was evaluated by orthopedic surgery and they recommended against any kind of surgical intervention. With regards to her reduced oral intake this has been a problem for some time and she was referred to GI as an outpatient however she came to the emergency department due to the inability to eat and only tolerating a couple bites of food with significant epigastric discomfort noted. She reported the pain was dull and aching and occasionally sharp and stabbing. She denied any fever or chills but stated she was not able to keep any food down. Vital signs on presentation were unremarkable. CBC showed a normal white count. Her hemoglobin was low and has been trending down. Platelet count was normal. Her chemistry panel was overall unremarkable. UA was unremarkable. Chest x-ray was unremarkable. CT of the abdomen pelvis was overall unremarkable other than some mild splenomegaly. She was given IV fluids and antiemetics in the emergency department. The case was discussed with Dr. Antonio from gastroenterology evaluated the patient in consultation. She was noted to have worsening anemia since she was started on Eliquis in mid June. She also had significant immunotherapy related colitis for which she was being treated with steroids. Dr. Antonio felt that an EGD was warranted given her symptoms and she was taken for EGD after being kept n.p.o. since admission on 08/28/2023. EGD showed a no rmal esophagus, normal stomach except for a mass protruding through the pylorus into the stomach causing a ball-valve effect. Biopsies of the duodenal mass were taken and pending at the time of discharge. Dr. Antonio recommended a full liquid diet for 48 hours with progression to a soft diet following and the use of Protonix 40 mg daily as well as Reglan 5 mg p.o. 4 times daily. Clinically the patient was feeling much better by 08/29/2023. She was able to tolerate a full liquid diet and had none of the abdominal pain or nausea that she was having previously. She stated it felt so good to not be nauseous. Her Hemoccult was positive however hemoglobin was stable during her hospital stay and she was maintained on her Eliquis throughout her entire hospitalization. I think that we can keep her on her Eliquis and have a follow-up CBC be performed as an outpatient to make sure that she is clinically stable with regards to her anemia and okay to stay on anticoagulation. Did workup her anemia while she was hospitalized and her iron studies are more consistent with chronic disease and nutritional deficits. B12 and folate were normal. TSH was unremarkable. Serum copper and serum soluble transferrin receptor were pending at the time of discharge. Hemoccult positive stool may be related to her recent colitis from her immunotherapy. I discussed the findings with Dr. Palma, her oncologist, and he will keep an eye out for pathology. She does have an appointment with Dr. Palma next week and I have asked her to call make an appointment to follow-up with Dr. Antonio in the next 2 weeks. It is possible that he may be able to remove this mass via endoscopy however we need pathology first to make decisions on what to do. She is also follow-up with her primary care physician in the next 2 weeks. I have sent her home with a prescription for scopolamine patch if she needs it, Protonix, and Reglan. She was given a 1 month supply for all. She was discharged home in stable condition able to eat and drink a full liquid diet without any difficulty. Again she was instructed to continue full liquid diet for the next 24 hours and then transition to a soft diet. Information on s oft diet was given to her at the time of discharge. Of note she did have a fall where she slid out of bed and denied injury. CT of her head was performed and unremarkable. Discharge diagnoses: Intractable nausea and vomiting-resolved Epigastric pain-resolved Duodenal mass status postbiopsy Severe malnutrition Generalized weakness/debility Hypokalemia-resolved Phosphatemia-resolved Hypomagnesemia-resolved Anemia History of PE/DVT diagnosed 07/05/2023 Metastatic melanoma Hypertension Hyperlipidemia Immunotherapy related colitis Adrenal insufficiency History of GERD History of cerebellar stroke History of epilepsy Mild cognitive impairment History of tobacco abuse Physical Exam Narrative Patient states she is feeling so much better. Tolerating full liquid diet without any pain or nausea. Less pain with palpation of her upper abdomen. States she is anxious to go home if possible and will follow-up as an outpatient to obtain her results. Const alert, oriented x3, no apparent distress and average body habitus; Negative for healthy appearing or well nourished Constitutional Narrative: Older, white female, sitting up in bed, patient appears well today, nontoxic, at bedside General Appearance: cooperative, comfortable, well kempt and well developed Orientation / Consciousness: awake, oriented to person, oriented to place and oriented to time Exam Limitations: no limitations HEENT normocephalic, head/scalp atraumatic and moist oral mucous membranes HEENT Narrative: Mallampati 2, no thrush Eyes PERRL and conjunctivae normal Eyes Narrative: No scleral icterus Neck supple Neck Narrative: Trachea midline Resp normal respiratory effort, no retractions, no use of accessory muscles and clear to auscultation bilaterally Auscultation: Negative for rales, rhonchi or wheezes Cardio regular rate, regular rhythm, S1 normal heart sound, S2 normal heart sound, no murmurs, no rub, no gallops and no clicks GI normal to inspection, nondistended, normoactive bowel sounds and soft to palpation GI Narrative: No pain with palpation to the upper abdomen/epigastric area and no resultant nausea with palpation Extremity no clubbing, cyanosis or edema Extremity Narrative: Pedal pulses are 2+ Skin no rashes or lesions noted, no wounds and no jaundice Neuro oriented x3, moves all extremities and no focal motor deficits Speech: speech normal Psych affect normal Psych Narrative: Eye contact is good, patient interacts appropriately and normally Medical Records Data Medical Nutrition Assessment Dietitian: Malnutrition Criteria Met Start: 08/27/23 13:19 Freq: Status: Active Protocol: Document 08/27/23 13:20 LO (Rec: 08/27/23 13:20 [id number]) Nutrition Malnutrition Evidence of Malnutrition Exists Yes Malnutrition (severe): Chronic Evidenced By Suboptimal Energy Intake ( Severe),Weight Loss (Severe) Clinical Problem Chronic Disease or Condition Related Malnutrition Etiology severe related to inadequte energy intake with GI dysfunction Signs/Symptoms as evidenced by 14.6% weight loss in 3.5 months and estimated <75% PO intake for > 1 month Status Active Problem Recommendation Dietitian Recommendations/Changes ADAT to Regular when medically able to optimize oral intakes . Continue Ensure Clear with meals and will discontinue Ensure Clear with medpass. Weight / BMI Weight Weight: 68.3 kg Body Mass Index (BMI) 24.2 ABG / Lab / Microbiology Data 08/29/23 06:30 08/29/23 06:30 Laboratory: Laboratory Results - last 24 hr 08/29/23 06:30: WBC 3.6 L, RBC 2.92 L, Hgb 8.7 L, Hct 27.7 L, MCV 94.9, MCH 29.8, MCHC 31.4 L, RDW Std Deviation 57.3 H, RDW Coeff of Lynn 16.5 H, Plt Count 284, MPV 8.9, Immature Gran % (Auto) 1.400 H, Neut % (Auto) 74.2 H, Lymph % (Auto) 18.5 L, [place] % (Auto) 5.6, Eos % (Auto) 0.0, Baso % (Auto) 0.3, Absolute Neuts (auto) 2.7, Absolute Lymphs (auto) 0.66 L, Nucleated RBC % 0, Sodium 137, Potassium 3.9, Chloride 110 H, Carbon Dioxide 24.0, Anion Gap 3 L, BUN 5 L, Creatinine 0.44 L, Estim Creat Clear Calc 44.80, Est GFR (MDRD) Af Amer 179, Est GFR (MDRD) Non-Af 148, BUN/Creatinine Ratio 11.4, Glucose 142 H, Calcium 7.6 L, Magnesium 2.0 Microbiology: Microbiology 08/29/23 Unknown Stool Stool Occult Blood (MARQUES) - Final Occult Blood Positive D/C Instructions Discharge Diet: Soft diet (Full liquid diet for the next 24 hours and then advance to soft diet) and - (Really recommend the use of milk shakes and smoothies for part of your nutrition as I suspect you will tolerate these better than regular food) Discharge Activity: Return to Normal Activity Meaningful Use Info Meaningful Use Diagnoses (Choose all that apply): None applicable Discharge Plan Admission Admit Date/Time: 08/26/23 15:31 Primary Reason for Your Visit: Abdominal pain/nausea/vomiting Attending Provider: Ramya Maradiaga Primary Care Provider: Marvin Malloy Consulting Providers: Sima Sanchez Instructions Patient Instructions: Soft Clare Diet Dc Additional Instructions / Restrictions: 1. As discussed, they did find a tumor in your duodenum of which biopsies were taken. Treatment of this will depend on biopsy results. Please follow-up both with Dr. Palma and Dr. Antonio as noted below 2. Continue full liquid diet for another 24 hours and then okay to transition to a soft diet but would avoid overt solids to prevent recurrence of symptoms Discharge Orders/Prescriptions Prescriptions: New pantoprazole 40 mg Tablet,Delayed Release (Dr/Ec) 40 mg PO DAILY Qty: 30 0RF scopolamine base 1 mg over 3 days Patch 3 Day 1 patch transdermal Q3D Qty: 4 0RF metoclopramide HCl 5 mg Tablet 5 mg PO Q6 Qty: 120 0RF Continued atorvastatin 40 mg tablet 40 mg PO DAILY melatonin 5 mg capsule 3 mg PO QHS PRN (Reason: Sleep) metoprolol succinate 50 MG tablet 50 mg PO DAILY Qty: 0 0RF Rx Instructions: Hold if heart rate less than 60/min lisinopril 20 mg tablet 20 mg PO DAILY acetaminophen 500 mg Tablet 1,000 mg PO Q6H PRN PRN (Reason: Pain Score 1-5) Qty: 0 0RF potassium chloride [Klor-Con M20] 20 mEq Tablet,Er Particles/Crystals 20 meq PO BIDCM 30 Days Qty: 60 0RF Eliquis 5 mg Tablet 5 mg PO BID 30 Days Qty: 60 0RF nystatin 100,000 unit/mL suspension 5 ml PO Q8H PRN PRN (Reason: thrush) Patient Comments: TAKE 5 ML BY MOUTH 4 TIMES DAILY ondansetron HCl 8 mg tablet 8 mg PO Q8H PRN (Reason: nausea) Patient Comments: take 1 tablet by mouth every 8 hours if needed for nausea and vomiting sucralfate 1 gram tablet 1 g PO Q6H Patient Comments: TAKE 1 TABLET BY MOUTH 4 TIMES A DAY. MIX WITH A LITTLE BIT OF WATER TO MAKE A SLURRY prednisone 10 mg Tablet 5 mg PO DAILYCM Discontinued omeprazole 20 mg capsule,delayed release(DR/EC) 20 mg PO DAILY Referrals / Follow Up: Ismael Palma DO [Med Staff - Active Staff] - See Referral Note (Follow-up as previously scheduled) Jason Antonio DO [Med Staff - Active Staff] - See Referral Note (Call tomorrow to set up an appointment to be seen within the next 2 weeks) Marvin Malloy MD [Primary Care Provider] - Within 2 Weeks Disposition Disposition (needs filled in before D/C Order can be placed): Home, Self Care Charges/Coding Visit Charges Inpatient E&M: 70462 Disch Hosp >30min
--- NOTE | 2023-08-29 12:53 | CASEMGMT ---
Social Work SW met with pt to discuss advance directives.? Pt confirms she has completed a living will and health care POA naming her spouse Timbo Terry.? Pt notified that documents are not on file at [facility] and SW requested they be brought in for scanning into the EMR.? HERNANDEZ Booth
[2023-08-29 14:00] VITALS: BP 131/70; PULSE 87; RESP 18; TEMP 36.7; O2SAT 96
--- NOTE | 2023-08-29 14:04 | CASEMGMT ---
This RN CM to pt room for regarding DC needs. Pt states she is agreeable to resume her HHC through [facility]. Pt will be seen by PT and SN. Mallory at [facility] notified. Pt states that she feels safe to go home with her at time of DC. Pt states that her supports her needs regarding IADLs. Pt uses a walker for ambulation. Pt states her drives her. Pt has no other questions or concerns at this time.
--- NOTE | 2023-08-29 15:24 | PHA.DC_ITS ---
Pharmacy [facility] has performed discharge medication reconciliation and counseling for this patient. 1. METOCLOPRAMIDE 5MG PO Q6 2. PANTOPRAZOLE 40MG PO DAILY 3. SCOPOLAMINE 1MG PATCH TD Q3 DAYS The patient's discharge medication list was reviewed for discrepancies and discrepancies were resolved. The patient was counseled on the following discharge medications and changes in medications for homegoing were reviewed. The Reason for Use, instructions for use, and potential side effects were reviewed for all new medications. The patient's questions regarding all of their medications were answered. The patient was able to verbally demonstrate an understanding of their discharge medications. Medications at Discharge Home Medications metoprolol succinate 50 mg tablet,extended release 24 hr 50 mg PO DAILY heart rate ##0 08/15/20 atorvastatin 40 mg tablet 40 mg PO DAILY cholesterol 09/24/20 melatonin 5 mg capsule 3 mg PO QHS PRN Sleep 10/26/20 lisinopril 20 mg tablet 20 mg PO DAILY blood pressure 07/13/23 acetaminophen 500 mg tablet 1,000 mg (2 x 500 mg) PO Q6H PRN PRN Pain Score 1-5 #0 tabs 07/27/23 apixaban 5 mg tablet (Eliquis) 5 mg PO BID blood thinner 30 days #60 tabs 07/27/23 potassium chloride 20 mEq tablet,extended release(part/cryst) (Klor-Con M) 20 meq PO BIDCM supplement 30 days #60 tabs 07/27/23 nystatin 100,000 unit/mL oral suspension 5 ml PO Q8H PRN PRN thrush 08/26/23 ondansetron HCl 8 mg tablet 8 mg PO Q8H PRN nausea 08/26/23 prednisone 10 mg tablet 5 mg PO DAILYCM colitis 08/26/23 sucralfate 1 gram tablet 1 g PO Q6H colitis 08/26/23 metoclopramide HCl 5 mg tablet 5 mg PO Q6 #120 tabs 08/29/23 pantoprazole 40 mg tablet,delayed release 40 mg PO DAILY #30 tabs 08/29/23 scopolamine base 1 mg over 3 days transdermal patch 1 patch transdermal Q3D #4 ea 08/29/23
--- NOTE | 2023-08-29 16:36 | EX.PCM.PN.GI ---
Subjective Subjective Patient is doing a lot better and she is able to keep food down. Objective Data Objective Data Vital Signs: Vital Signs Temp Pulse Resp BP Pulse Ox O2 Del Method O2 Flow Rate 98.1 F 87 18 131/70 H 96 Room Air 2 08/29/23 14:00 08/29/23 14:00 08/29/23 14:00 08/29/23 14:00 08/29/23 14:00 08/29/23 14:00 08/27/23 03:31 Oxygen Flow Rate (L/min) 2 Oxygen Delivery Method Room Air Weight: 150 lb 9.211 oz Body Mass Index (BMI) 24.2 Intake & Output: Intake and Output for Last 24 Hours 08/27/23 08/28/23 08/29/23 23:59 23:59 23:59 Intake Total 2737 / 3037 3785.67 / 3785.67 2514 / 2514 Output Total 300 / 300 400 / 400 Balance 2737 / 3037 3485.67 / 3485.67 2114 / 2114 Lab / Micro Data 08/29/23 06:30 08/29/23 06:30 Labs: Laboratory Results - last 24 hr 08/29/23 06:30: WBC 3.6 L, RBC 2.92 L, Hgb 8.7 L, Hct 27.7 L, MCV 94.9, MCH 29.8, MCHC 31.4 L, RDW Std Deviation 57.3 H, RDW Coeff of Lynn 16.5 H, Plt Count 284, MPV 8.9, Immature Gran % (Auto) 1.400 H, Neut % (Auto) 74.2 H, Lymph % (Auto) 18.5 L, [place] % (Auto) 5.6, Eos % (Auto) 0.0, Baso % (Auto) 0.3, Absolute Neuts (auto) 2.7, Absolute Lymphs (auto) 0.66 L, Nucleated RBC % 0, Sodium 137, Potassium 3.9, Chloride 110 H, Carbon Dioxide 24.0, Anion Gap 3 L, BUN 5 L, Creatinine 0.44 L, Estim Creat Clear Calc 44.80, Est GFR (MDRD) Af Amer 179, Est GFR (MDRD) Non-Af 148, BUN/Creatinine Ratio 11.4, Glucose 142 H, Calcium 7.6 L, Magnesium 2.0 Micro: Microbiology 08/29/23 Unknown Stool Stool Occult Blood (MARQUES) - Final Occult Blood Positive Physical Exam Narrative Patient states she is feeling so much better. Tolerating full liquid diet without any pain or nausea. Less pain with palpation of her upper abdomen. States she is anxious to go home if possible and will follow-up as an outpatient to obtain her results. Const alert, oriented x3, no apparent distress and average body habitus; Negative for healthy appearing or well nourished Constitutional Narrative: Older, white female, sitting up in bed, patient appears well today, nontoxic, at bedside General Appearance: cooperative, comfortable, well kempt and well developed Orientation / Consciousness: awake, oriented to person, oriented to place and oriented to time Exam Limitations: no limitations HEENT normocephalic, head/scalp atraumatic and moist oral mucous membranes HEENT Narrative: Mallampati 2, no thrush Eyes PERRL and conjunctivae normal Eyes Narrative: No scleral icterus Neck supple Neck Narrative: Trachea midline Resp normal respiratory effort, no retractions, no use of accessory muscles and clear to auscultation bilaterally Auscultation: Negative for rales, rhonchi or wheezes Cardio regular rate, regular rhythm, S1 normal heart sound, S2 normal heart sound, no murmurs, no rub, no gallops and no clicks GI normal to inspection, nondistended, normoactive bowel sounds and soft to palpation GI Narrative: No pain with palpation to the upper abdomen/epigastric area and no resultant nausea with palpation Extremity no clubbing, cyanosis or edema Extremity Narrative: Pedal pulses are 2+ Skin no rashes or lesions noted, no wounds and no jaundice Neuro oriented x3, moves all extremities and no focal motor deficits Speech: speech normal Psych affect normal Psych Narrative: Eye contact is good, patient interacts appropriately and normally Assessment & Plan Assessment/Plan (1) Gastritis: QUALIFIERS: Gastritis type: other gastritis Chronicity: chronic Gastritis bleeding: without bleeding Qualified Code(s): K29.50 - Unspecified chronic gastritis without bleeding PLAN: Plan The patient is a 78 y/o F with Metastatic melanoma on immunotherapy following with Dr. Palma with prior admission with regimen associated colitis with a relapse on infliximab and steroids. She was recent discharge from w/ significant debility, inability to walk with lower extremity weakness and failure to thrive with poor oral intake ability and epigastric discomfort. Since discharge continued inability to eat with nausea and dry heaving only able to tolerate a couple bites with epigastric discomfort. Differential diagnosis for intractable nausea, dry heaves, inability to tolerate oral intake with epigastric discomfort concerning for acute candidiasis induced esophagitis, viral associated esophagitis, peptic ulcer disease, neoplastic metastasis to the upper GI tract. She was discovered to have a polypoid lesion in the duodenum causing a bowel vulva fact on the pyloric sphincter patient is well-known Reglan therapy we will continue that for now and await biopsies. Charges/Coding Visit Charges Inpatient E&M: 02485 Subs Hosp L3
[2023-09-01 05:13] LABS: Copper, Serum or Plasma 86 ug/dL (80-158)
== END 2023-08-29 15:47 | disposition home or self-care (01) | DRG 391 ==
LOC: ED 15:24 → MS3 15:37
PROVIDERS: Anesthesiology; Internal Medicine Gastroenterology; Admitting Provider Family Medicine; Emergency Provider Emergency Medicine; PCP Family Medicine; Visit Provider Internal Medicine
PROC: 0DJ08ZZ Inspection of Upper Intestinal Tract, Via Natural or Artificial Opening Endoscopic (ICD-10-PCS; CPT 43235; principal; 2023-08-28 13:25)
DX: K29.70 Gastritis, unspecified, without bleeding (principal); E43 Unspecified severe protein-calorie malnutrition; E27.40 Unspecified adrenocortical insufficiency; K52.1 Toxic gastroenteritis and colitis; E83.39 Other disorders of phosphorus metabolism; R62.7 Adult failure to thrive; C43.9 Malignant melanoma of skin, unspecified; G40.909 Epilepsy, unspecified, not intractable, without status epilepticus; D64.9 Anemia, unspecified; I10 Essential (primary) hypertension; E78.5 Hyperlipidemia, unspecified; G31.84 Mild cognitive impairment of uncertain or unknown etiology; K21.9 Gastro-esophageal reflux disease without esophagitis; E87.6 Hypokalemia; E83.42 Hypomagnesemia; D18.09 Hemangioma of other sites; Z79.52 Long term (current) use of systemic steroids; Z80.8 Family history of malignant neoplasm of other organs or systems; Z87.891 Personal history of nicotine dependence; R53.81 Other malaise; Z79.01 Long term (current) use of anticoagulants; Z82.5 Family history of asthma and other chronic lower respiratory diseases; Z86.16 Personal history of COVID-19; Z82.3 Family history of stroke; R53.1 Weakness; Z86.718 Personal history of other venous thrombosis and embolism; Z86.711 Personal history of pulmonary embolism; T45.1X5A Adverse effect of antineoplastic and immunosuppressive drugs, initial encounter; Z68.24 Body mass index [BMI] 24.0-24.9, adult; Z86.73 Personal history of transient ischemic attack (TIA), and cerebral infarction without residual deficits
CPT/HCPCS: 36415; 70450; 71045; 74177; 80048; 80053; 80076; 81001; 81025; 82150; 82274; 82525; 82607; 82728; 82746; 82962; 83540; 83550; 83690; 83735; 84100; 84443; 85025; 85045; 85610; 85730; 88305; 88325; 93005; 94668; 97162; 97166; 97535; 97802; 99285; J7030; J7040; J7050; Q9967; A4216; J2405

== ENCOUNTER 2023-09-01 14:28 | Inpatient (IN) | payer MEDICARE, OTHER, SELFPAY ==
[2023-09-01] VITALS (8 sets, daily range): BP systolic 97–146; BP diastolic 50–70; PULSE 79–92; RESP 12–18; TEMP 35.4–36.8; O2SAT 92–98; BMI 25.9; BMI 24.4
--- NOTE | 2023-09-01 14:55 | EKG12_ITS ---
Test Reason : Blood Pressure : / mmHG Vent. Rate : 096 BPM Atrial Rate : 096 BPM P-R Int : 152 ms QRS Dur : 072 ms QT Int : 350 ms P-R-T Axes : 048 052 061 degrees QTc Int : 442 ms Normal sinus rhythm Low voltage QRS Borderline ECG Confirmed by AMADA HECTOR, JERROD ([id number]), associate entertainment editor CLAYTON QUINONES ([id number]) on 09/03/2023 8:44:42 AM Referred By: Confirmed By:JERROD YBARRA MD
[2023-09-01] MEDS: Ondansetron 4 MG/2 ML Vial IV (14:58)
--- NOTE | 2023-09-01 15:02 | RAD_ITS ---
HISTORY: chest pain. TECHNIQUE: XR Chest 1 View. COMPARISON: 08/26/2023. FINDINGS: CARDIOMEDIASTINAL BORDERS: Cardiac silhouette within normal limits in size. Mediastinal contour unremarkable with calcification of the aortic knob. LUNGS: Radiographically clear. PLEURA: No pleural effusion or pneumothorax seen. OTHER: Mild degenerative changes of the osseous structures. Left axillary surgical clips. RAD/Chest 1 View (Portable) IMPRESSION: No acute cardiopulmonary process identified. Electronically Signed: Sarita Nguyen MD at 15:28 EST ,
--- NOTE | 2023-09-01 15:11 | CT_ITS ---
STUDY: CT ABDOMEN AND PELVIS WITH CONTRAST REASON FOR EXAM: Female, 78 years old. epigastric pain RADIATION DOSAGE (If Supplied By Facility): CTDIvol = ( 31.63 ) mGy, DLP = ( 543.59 ) mGycm TECHNIQUE: Transaxial images were obtained from the dome of the diaphragm to the symphysis pubis without oral contrast. IV 100mL Isovue-370 was administered. Sagittal and coronal images were reconstructed. Individualized dose optimization techniques were used for this CT. COMPARISON: 08/18/2023 FINDINGS: The visualized lung bases are unremarkable. The visualized portions of the heart are within normal limits. Stable simple hepatic cyst. No required imaging follow-up needed given high likelihood of benign nature. Normal gallbladder and extrahepatic biliary system. There is mild splenomegaly. Normal pancreas. Normal bilateral adrenal glands. Simple bilateral renal cysts are stable. No required imaging follow-up needed given high likelihood of benign nature. Normal visualized stomach. No dilated small bowel. There are multiple colonic diverticula consistent with diverticulosis. The appendix is visualized and appears normal. There is diffuse atherosclerotic calcification of the abdominal aorta, without a demonstrated aneurysm. Normal inferior vena cava. Normal retroperitoneum. Normal urinary bladder. Normal abdominal wall. There are diffuse degenerative changes of the visualized lumbar spine. Hepatic hemangiomata of the lumbar vertebral bodies. Bilateral hip replacements. CT/Abdomen/Pelvis W IV Cont ONLY IMPRESSION: 1. No acute inflammatory process or bowel obstruction. 2. Stable chronic changes as above. Electronically Signed: Uday Branch MD (Brooks) at 17:19 EST Reading Location ID and State: [facility] / [place] , Service support ,
--- NOTE | 2023-09-01 15:15 | EX.ED.DYSGE1 ---
HPI <HERBER El - Last Filed: 09/01/23 19:57> History of Present Illness Chief Complaint: Chest Pain Narrative Narrative: Patient presenting today with her due to epigastric abdominal pain that started today. He reports that she was recently admitted here in the hospital on 08/26/2023 and was discharged home on . She has had epigastric abdominal pain chronically and had an EGD while here that showed a small tumor that has been biopsied. He reports that she was doing well up until today when she began complaining of pain again. She went to go take a nap and when he went to check on her she was sitting on the toilet trying to have a bowel movement. She became diaphoretic, pale, dizzy, and nauseous. He was having a hard time getting her off of the toilet and called EMS to bring her in. He reports that she is confused on and off and now appears confused again. Has a PMH of hypertension, hyperlipidemia, epilepsy, metastatic melanoma follows with Dr. Palma. 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 Mild cognitive impairment Myeloma Polyneuropathy Post-menopausal Seizures Home Medications metoprolol succinate 50 mg tablet,extended release 24 hr 50 mg PO DAILY heart rate ##0 08/15/20 [Rx Last Taken 08/26/23 10:00] atorvastatin 40 mg tablet 40 mg PO DAILY cholesterol 09/24/20 [History Last Taken 08/26/23 10:00] melatonin 5 mg capsule 3 mg PO QHS PRN Sleep 10/26/20 [History Last Taken 09/12/22] lisinopril 20 mg tablet 20 mg PO DAILY blood pressure 07/13/23 [History Last Taken 08/26/23 10:00] acetaminophen 500 mg tablet 1,000 mg (2 x 500 mg) PO Q6H PRN PRN Pain Score 1-5 #0 tabs 07/27/23 [Rx Last Taken Unknown] apixaban 5 mg tablet (Eliquis) 5 mg PO BID blood thinner 30 days #60 tabs 07/27/23 [Rx Last Taken 08/26/23 10:00] potassium chloride 20 mEq tablet,extended release(part/cryst) (Klor-Con M) 20 meq PO BIDCM supplement 30 days #60 tabs 07/27/23 [Rx Last Taken 08/26/23 09:00] nystatin 100,000 unit/mL oral suspension 5 ml PO Q8H PRN PRN thrush 08/26/23 [History Last Taken Unknown] ondansetron HCl 8 mg tablet 8 mg PO Q8H PRN nausea 08/26/23 [History Last Taken 08/25/23] prednisone 10 mg tablet 5 mg PO DAILYCM colitis 08/26/23 [History Last Taken 08/26/23 10:00] sucralfate 1 gram tablet 1 g PO Q6H colitis 08/26/23 [History Last Taken 08/26/23 17:00] metoclopramide HCl 5 mg tablet 5 mg PO Q6 #120 tabs 08/29/23 [Rx Last Taken Unknown] pantoprazole 40 mg tablet,delayed release 40 mg PO DAILY #30 tabs 08/29/23 [Rx Last Taken Unknown] scopolamine base 1 mg over 3 days transdermal patch 1 patch transdermal Q3D #4 ea 08/29/23 [Rx Last Taken Unknown] Allergy/AdvReac Type Severity Reaction Status Date / Time Sulfa (Sulfonamide Allergy Unknown NEEDS Verified 08/26/23 11:56 Antibiotics) FOLLOW-UP amoxicillin AdvReac Severe Diarrhea Verified 08/26/23 11:56 sulfamethoxazole AdvReac Severe Anaphylaxis Verified 08/26/23 11:56 [From Bactrim] trimethoprim [From Bactrim] AdvReac Swelling Verified 08/26/23 11:56 Family History Brother Alcoholism Asthma Myocardial infarction, Onset Age: 52 Seizures Skin cancer Sister CVA (cerebral vascular accident) Asthma Grandfather Asthma Father Myocardial infarction, Onset Age: 46 Had at age 46 & 62 Mother Myocardial infarction, Onset Age: 82 Surgical History History of amputation of finger History of cataract surgery History of eye surgery History of right hip replacement History of total left hip replacement Social History household members: spouse Smoking Status: Former smoker Tobacco: How many years used: 30 how long ago did patient quit smokin years ago second hand exposure: No alcohol intake: current alcohol intake frequency: holidays/special occasions only Alcohol type: wine substance use type: does not use amy/worship: None seatbelt use: always ROS <HERBER El - Last Filed: 09/01/23 19:57> ROS ED Constitutional Constitutional ED: Denies chills or fever(s) Cardiovascular Cardiovascular: Denies chest pain Respiratory/Chest Respiratory/Chest: Denies cough or dyspnea Gastrointestinal Gastrointestinal: Reports abdominal pain and nausea; Denies vomiting Genitourinary Genitourinary ED: Denies dysuria, hematuria or urinary urgency Musculoskeletal Musculoskeletal: Denies arthralgias or myalgias Integumentary Denies rash Neurologic Neurologic: Reports confusion; Denies weakness EXAM <HERBER El - Last Filed: 09/01/23 19:57> Physical Exam Const Vital Signs: 09/01/23 14:30 09/01/23 14:47 09/01/23 15:45 Temperature 95.8 F L 96.7 F L Temperature Source Temporal Temporal Pulse Rate 92 79 79 Respiratory Rate 16 14 16 Blood Pressure 117/50 L 114/59 L 132/70 H Blood Pressure Mean 72 77 90 Pulse Ox 96 98 97 Oxygen Delivery Method Room Air Room Air Room Air 09/01/23 16:30 09/01/23 18:50 09/01/23 19:25 Temperature Temperature Source Pulse Rate 80 81 84 Respiratory Rate 12 16 14 Blood Pressure 136/64 H 97/70 146/67 H Blood Pressure Mean 88 79 93 Pulse Ox 95 97 92 Oxygen Delivery Method Room Air Room Air Positive well nourished and well developed Constitutional Narrative: Pale General Appearance ED: well developed HEENT Reports normocephalic and head/scalp atraumatic Mouth ED: Yes moist mucous membranes normal Eyes PERRL and EOMs intact bilaterally Neck full ROM and supple Chest Wall inspection of chest normal Resp normal respiratory effort and clear to auscultation bilaterally Cardio regular rate and regular rhythm GI soft to palpation, non-distended and no masses GI Narrative: Gastric tenderness to palpation Palpation: Negative for guarding or rebound tenderness present Back/Spine normal ROM and normal to inspection Extremity normal to inspection and full ROM Neuro CN's II-XII intact bilaterally, moves all extremities, no focal motor deficits and no sensory deficits noted Neuro Narrative: Alert and oriented to person, she does not know date of or what month it is Sensorium / Orientation: awake and alert Psych mental status grossly normal and thought process normal Skin no rashes or lesions noted and no wounds <Dr. Rogers Atkins DO - Last Filed: 09/01/23 21:00> Physical Exam Const Vital Signs: 09/01/23 14:30 09/01/23 14:47 09/01/23 15:45 Temperature 95.8 F L 96.7 F L Temperature Source Temporal Temporal Pulse Rate 92 79 79 Respiratory Rate 16 14 16 Blood Pressure 117/50 L 114/59 L 132/70 H Blood Pressure Mean 72 77 90 Pulse Ox 96 98 97 Oxygen Delivery Method Room Air Room Air Room Air 09/01/23 16:30 09/01/23 18:50 09/01/23 19:25 Temperature Temperature Source Pulse Rate 80 81 84 Respiratory Rate 12 16 14 Blood Pressure 136/64 H 97/70 146/67 H Blood Pressure Mean 88 79 93 Pulse Ox 95 97 92 Oxygen Delivery Method Room Air Room Air [facility] <HERBER El - Last Filed: 09/01/23 19:57> [facility] Narrative Medical decision making narrative: Patient presenting due to a epigastric abdominal pain that started today. She has a history of this and did have an EGD performed 08/28/23. She was discharged home from the hospital on and was doing well up until today. Has reports that she has had some intermittent confusion today which is not abnormal. denies any dark or tarry stools. However, she did have a bowel movement and nurse did notice that her stool had a pink tinge to it, Hemoccult was obtained and is positive. Labs to be obtained as well as a CT scan of the abdomen and pelvis. Chest x-ray will be obtained to rule out cardiopulmonary abnormality. She has been given IV fluids and pain control. CBC shows a WBC of 11.5, H&H 10.6 and 33.4. UA negative for UTI, troponin WNL. When discussing disposition with the patient, she reports that she feels too weak to go home and that her is having a hard time caring for her because of how weak she is. She reports that she feels like she is not eating enough and with her diarrhea she feels even more weak. I did discuss the case with the hospitalist, she will be admitted to the hospital for failure to thrive. She is comfortable with plan. I have personally performed a face to face assessment of the patient and have reviewed the KIKI Note. I performed a substantive portion of the visit including all aspects of the following. My chicas findings include: History is [patient presents with epigastric abdominal pain that started today. Patient states that she was recently admitted to the hospital and had an EGD that showed a tumor in her stomach that required biopsies. Patient complains of nausea currently. There is been some confusion today per but that is not that unusual. Patient denies chest pain. Patient states the pain comes and goes.] Exam is [PANCHO, EOMI. Cranial nerves II through XII grossly intact. TMs clear. Mucous membranes moist. No adenopathy. Somewhat pale appearing on exam. Cardiovascular-regular rate and rhythm without murmur or ectopy Lungs-clear to auscultation, chest wall stable without crepitus or subcu emphysema Abdomen- tenderness to palpation over the epigastric region with some guarding. There is no rebound, rigidity, or signs. No mass palpated. Extremities-intact ?4, normal range of motion, normal pulses, atraumatic] Medical Decison Making [IV line established. CBC with differential obtained showed a white count 11.5 with hemoglobin 10.6 and platelet count of 471. Chemistries unremarkable. LFTs were normal. Lipase was normal. Troponin was 7 and delta troponin was normal at 6. Urinalysis was normal. CT scan of the abdomen pelvis unremarkable. Etiology of patient's abdominal pain unclear. Patient just generally weak and she does not feel like her is able to care for her. Will discuss with hospitalist to evaluate patient for admission for failure to thrive.] Other additions or changes: [None] Lab Data Attestation: I reviewed the patient's lab results. Labs: Laboratory Results - last 24 hr 09/01/23 09/01/23 14:30 18:47 WBC 11.5 H RBC 3.61 L Hgb 10.6 L Hct 33.4 L MCV 92.5 MCH 29.4 MCHC 31.7 L RDW Std Deviation 57.7 H RDW Coeff of Lynn 16.8 H Plt Count 471 H MPV 9.6 Immature Gran % (Auto) 1.000 H Neut % (Auto) 67.4 Lymph % (Auto) 22.8 Leake % (Auto) 8.4 Eos % (Auto) 0.0 Baso % (Auto) 0.4 Absolute Neuts (auto) 7.7 Absolute Lymphs (auto) 2.62 Nucleated RBC % 0 Sodium 137 Potassium 4.1 Chloride 102 Carbon Dioxide 23.0 Anion Gap 12 BUN 8 Creatinine 0.80 Estim Creat Clear Calc 56.01 Est GFR (MDRD) Af Amer 89 Est GFR (MDRD) Non-Af 74 BUN/Creatinine Ratio 9.9 L Glucose 171 H Calcium 8.4 L Total Bilirubin 0.70 AST 18 ALT 19 Alkaline Phosphatase 103 Troponin I High Sens 7 6 Total Protein 5.8 L Albumin 2.3 L Globulin 3.5 Albumin/Globulin Ratio 0.7 L Lipase 54 Urine Color Yellow Urine Clarity Clear Urine pH 7.0 Ur Specific [place] 1.005 Urine Protein Negative Urine Glucose (UA) Normal Urine Ketones Negative Urine Occult Blood 10 H Urine Nitrite Negative Urine Bilirubin Negative Urine Urobilinogen Normal Ur Leukocyte Esterase Negative Urine RBC 0 SEEN Urine WBC 0 SEEN Ur Squamous Epith Cells 0 SEEN Urine Bacteria 0 SEEN Urine Mucus 0 SEEN Radiography X-Ray: Read by ED Physician and Read by Radiologist Diagnostic Testing: Clinical Impression(s) from Imaging Studies Chest X-Ray 09/01/23 15:02 IMPRESSION: No acute cardiopulmonary process identified. Electronically Signed: Sarita Nguyen MD at 15:28 EST , Abdomen/Pelvis CT 09/01/23 15:11 IMPRESSION: 1. No acute inflammatory process or bowel obstruction. 2. Stable chronic changes as above. Electronically Signed: Uday Branch MD ([place]) at 17:19 EST , EKG Initial EKG: Comments: 96 bpm, normal sinus rhythm, no ST elevation, reviewed and interpreted by attending ED physician. EKG unchanged from 08/26/2023. <Dr. Rogers Atkins, DO - Last Filed: 09/01/23 21:00> [facility] Narrative Medical decision making narrative: Patient presenting due to a epigastric abdominal pain that started today. She has a history of this and did have an EGD performed 08/28/23. She was discharged home from the hospital on and was doing well up until today. Has reports that she has had some intermittent confusion today which is not abnormal. denies any dark or tarry stools. However, she did have a bowel movement and nurse did notice that her stool had a pink tinge to it, Hemoccult was obtained and is positive. Labs to be obtained as well as a CT scan of the abdomen and pelvis. Chest x-ray will be obtained to rule out cardiopulmonary abnormality. CBC shows a WBC of 11.5, H&H 10.6 and 33.4. UA negative for UTI, troponin WNL. I have personally performed a face to face assessment of the patient and have reviewed the KIKI Note. I performed a substantive portion of the visit including all aspects of the following. My chicas findings include: History is [patient presents with epigastric abdominal pain that started today. Patient states that she was recently admitted to the hospital and had an EGD that showed a tumor in her stomach that required biopsies. Patient complains of nausea currently. There is been some confusion today per but that is not that unusual. Patient denies chest pain. Patient states the pain comes and goes.] Exam is [HEENT-PERRLA, EOMI. Cranial nerves II through XII grossly intact. TMs clear. Mucous membranes moist. No adenopathy. Somewhat pale appearing on exam. Cardiovascular-regular rate and rhythm without murmur or ectopy Lungs-clear to auscultation, chest wall stable without crepitus or subcu emphysema Abdomen- tenderness to palpation over the epigastric region with some guarding. There is no rebound, rigidity, or signs. No mass palpated. Extremities-intact ?4, normal range of motion, normal pulses, atraumatic] Medical Decison Making [IV line established. CBC with differential obtained showed a white count 11.5 with hemoglobin 10.6 and platelet count of 471. Chemistries unremarkable. LFTs were normal. Lipase was normal. Troponin was 7 and delta troponin was normal at 6. Urinalysis was normal. CT scan of the abdomen pelvis unremarkable. Etiology of patient's abdominal pain unclear. Patient just generally weak and she does not feel like her is able to care for her. Will discuss with hospitalist to evaluate patient for admission for failure to thrive.] Other additions or changes: [None] Lab Data Labs: Laboratory Results - last 24 hr 09/01/23 09/01/23 14:30 18:47 WBC 11.5 H RBC 3.61 L Hgb 10.6 L Hct 33.4 L MCV 92.5 MCH 29.4 MCHC 31.7 L RDW Std Deviation 57.7 H RDW Coeff of Lynn 16.8 H Plt Count 471 H MPV 9.6 Immature Gran % (Auto) 1.000 H Neut % (Auto) 67.4 Lymph % (Auto) 22.8 Leake % (Auto) 8.4 Eos % (Auto) 0.0 Baso % (Auto) 0.4 Absolute Neuts (auto) 7.7 Absolute Lymphs (auto) 2.62 Nucleated RBC % 0 Sodium 137 Potassium 4.1 Chloride 102 Carbon Dioxide 23.0 Anion Gap 12 BUN 8 Creatinine 0.80 Estim Creat Clear Calc 56.01 Est GFR (MDRD) Af Amer 89 Est GFR (MDRD) Non-Af 74 BUN/Creatinine Ratio 9.9 L Glucose 171 H Calcium 8.4 L Total Bilirubin 0.70 AST 18 ALT 19 Alkaline Phosphatase 103 Troponin I High Sens 7 6 Total Protein 5.8 L Albumin 2.3 L Globulin 3.5 Albumin/Globulin Ratio 0.7 L Lipase 54 Urine Color Yellow Urine Clarity Clear Urine pH 7.0 Ur Specific [place] 1.005 Urine Protein Negative Urine Glucose (UA) Normal Urine Ketones Negative Urine Occult Blood 10 H Urine Nitrite Negative Urine Bilirubin Negative Urine Urobilinogen Normal Ur Leukocyte Esterase Negative Urine RBC 0 SEEN Urine WBC 0 SEEN Ur Squamous Epith Cells 0 SEEN Urine Bacteria 0 SEEN Urine Mucus 0 SEEN Radiography Diagnostic Testing: Clinical Impression(s) from Imaging Studies Chest X-Ray 09/01/23 15:02 IMPRESSION: No acute cardiopulmonary process identified. Electronically Signed: Sarita Nguyen MD at 15:28 EST , Abdomen/Pelvis CT 09/01/23 15:11 IMPRESSION: 1. No acute inflammatory process or bowel obstruction. 2. Stable chronic changes as above. Electronically Signed: Uday Branch MD ([place]) at 17:19 EST , 1 view chest x-ray obtained interpreted by myself as no evidence of infiltrate or pneumothorax or acute disease process. Radiology in agreement. Discharge Plan Dx/Rx/DC Orders Clinical Impression: Transient hypotension, History of melanoma, Weakness, Abdominal pain Disposition Disposition: Acute Care Hospital [facility] Discharge Date/Time: 09/01/23 20:13
[2023-09-01 15:21] LABS: Absolute Lymphocyte Count 2.62 X10^3/uL (0.83-4.51); Absolute Neutrophil Count 7.7 X10^3/uL (2.0-7.7); Basophil# 0.05 X10^3/uL; Basophil% 0.4 % (0-1); Hematocrit 33.4 % (37-47); Hemoglobin 10.6 g/dL (12.0-15.0); Lymphocyte # 2.62 X10^3/ul (0.83-4.51); Lymphocyte % 22.8 % (19-41); Mean Corp Hgb Conc 31.7 g/dL (32-36); Mean Corpuscular Hgb 29.4 pg (27.0-32.0); Mean Corpuscular Volume 92.5 fL (81-99); Mean Platelet Vol. 9.6 fl (6.2-12.0); Monocyte# 0.97 X10^3/uL; Monocyte% 8.4 % (0-10); NRBC Flagged by Analyzer 0 % (0-5); Neutrophil # 7.72 X10^3/uL (2.7-7.7); Neutrophil % 67.4 % (47-70); Platelet Count 471 K/mm3 (150-450); RBC Distribution Width CV 16.8 % (11.6-14.6); RBC Distribution Width SD 57.7 fl (35.1-43.9); Red Blood Count 3.61 M/mm3 (4.2-5.4); White Blood Count 11.5 K/mm3 (4.4-11.0)
[2023-09-01] MEDS: HYDROmorphone 0.5 MG/0.5 ML SYRINGE IV (15:22)
[2023-09-01 15:38] LABS: ALB/GLOB Ratio 0.7 RATIO (0.9-2.4); AST(SGOT) 18 U/L (15-37); Alanine Aminotransfer ALT/SGPT 19 U/L (13-56); Albumin, Serum 2.3 g/dL (3.2-5.0); Alkaline Phosphatase 103 U/L (45-117); Anion Gap 12 (5-15); BUN 8 mg/dL (7-18); BUN/Creat Ratio 9.9 RATIO (10-20); Calcium,Total 8.4 mg/dL (8.5-10.1); Chloride 102 mmol/L (98-107); EST Glomerular Filtration Rate 74 mL/min (>60); Est Glom Filt Rate - Afr Amer 89 mL/min (>60); Estimated Creatinine Clearance 56.01 ml/min; Globulin 3.5 g/dL (2.2-4.2); Glucose 171 mg/dL (74-106); Lipase 54 U/L (13-75); Potassium 4.1 mmol/L (3.5-5.1); Protein, Total 5.8 g/dL (6.4-8.2); Sodium Level 137 mmol/L (136-145); Troponin-I HS 7 pg/mL (3.0-54.0)
[2023-09-01 18:53] LABS: Bacteria 0 SEEN /hpf (None Seen); Mucous, Urine 0 SEEN /hpf (<or=2+); Red Blood Cells-Urine 0 SEEN /hpf (0-5); Squamous Epithelial Cells - UA 0 SEEN /hpf (5-10); White Blood Cells 0 SEEN /hpf (0-5)
[2023-09-01 19:06] LABS: Color, Urine Yellow (Yellow); Glucose, Dipstick Normal (Normal); Ketone-Dipstick Negative (Negative); Leukocyte Esterase-Dipstick Negative /ul (Negative); Nitrite-Dipstick Negative (Negative); Occult Blood-Urine 10 /ul (Negative); Protein-Dipstick Negative (Negative); Specific Gravity, Urine 1.005 (1.002-1.030); Urine Bilirubin Dipstick Negative (Negative); Urine Clarity Clear (Clear); Urine Urobilinogen Normal (Normal)
[2023-09-01 19:13] LABS: Troponin-I HS 6 pg/mL (3.0-54.0)
--- NOTE | 2023-09-01 19:35 | PCM.HP.STD ---
[facility] - General General Date of Admission: 09/01/23 Date of Service: 09/01/23 Chief Complaint: Abdominal Pain with Diarrhea [facility] Narrative MISTI HUERTA, is a 78 F with a past medical history of essential hypertension, hyperlipidemia, history of seizures, history of left lower extremity DVT and bilateral pulmonary emboli; on apixaban, history of myeloma, history of adrenal insufficiency, polyneuropathy, chronic anemia, history of COVID-19, prior history of tobacco abuse, history of severe colitis (05/2023); attributed to immunotherapy used to treat her cancer and 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 Palma with recent admission to the hospital here from 08/26/2023 to 08/29/2023 for the workup of chronic epigastric abdominal pain with EGD done that admission by Dr. Antonio of gastroenterology that revealed a small tumor that has been biopsied with results still pending at this time who re-presents to [facility] ER complaining of worsening abdominal pain with diarrhea. Mrs. Huerta has a limited recollection of today's events (but thankfully her was present at the bedside to augment the history) but reports she had been doing well until her acute symptoms began earlier today when she experienced the abrupt onset of her epigastric pain so she went to take a nap. Then while on the toilet while in the midst of an effort to have a bowel movement she suddenly became diaphoretic, pale, dizzy and nauseous. Her immediately came to her assistance and noted that she was confused and when he then had difficulty trying to get her up off the toilet he activated EMS to bring her into the hospital for further evaluation and treatment. She admits to chronically loose stools with fecal incontinence but she denies a previous history of the painful cramping sensation that takes her breath away which is new. Up to this point she has been tolerating her clear liquid diet with no other significant acute complaints other than the ones outlined above. In the ER she was noted to have diarrheal stools with some pink discoloration that was Hemoccult positive with laboratory evidence of hypoalbuminemia at 2.3 g/dL present on admission suspicious for acute severe protein calorie malnutrition compounded by clinical evidence of metabolic encephalopathy and she was then admitted to the general medical floor under observation status for stay that is expected to be less than 48 hours. PFSH Medical History Adrenal insufficiency Anemia Anticoagulated Bilateral pulmonary embolism COVID-19 Essential hypertension Former smoker GERD (gastroesophageal reflux disease) History of immunosuppression therapy History of steroid therapy Hyperlipidemia Left leg DVT 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 Mild cognitive impairment Myeloma Polyneuropathy Post-menopausal Seizures Home Medications metoprolol succinate 50 mg tablet,extended release 24 hr 50 mg PO DAILY heart rate ##0 08/15/20 [Rx Last Taken 08/26/23 10:00] atorvastatin 40 mg tablet 40 mg PO DAILY cholesterol 09/24/20 [History Last Taken 08/26/23 10:00] melatonin 5 mg capsule 3 mg PO QHS PRN Sleep 10/26/20 [History Last Taken 09/12/22] lisinopril 20 mg tablet 20 mg PO DAILY blood pressure 07/13/23 [History Last Taken 08/26/23 10:00] acetaminophen 500 mg tablet 1,000 mg (2 x 500 mg) PO Q6H PRN PRN Pain Score 1-5 #0 tabs 07/27/23 [Rx Last Taken Unknown] apixaban 5 mg tablet (Eliquis) 5 mg PO BID blood thinner 30 days #60 tabs 07/27/23 [Rx Last Taken 08/26/23 10:00] potassium chloride 20 mEq tablet,extended release(part/cryst) (Klor-Con M) 20 meq PO BIDCM supplement 30 days #60 tabs 07/27/23 [Rx Last Taken 08/26/23 09:00] nystatin 100,000 unit/mL oral suspension 5 ml PO Q8H PRN PRN thrush 08/26/23 [History Last Taken Unknown] ondansetron HCl 8 mg tablet 8 mg PO Q8H PRN nausea 08/26/23 [History Last Taken 08/25/23] prednisone 10 mg tablet 5 mg PO DAILYCM colitis 08/26/23 [History Last Taken 08/26/23 10:00] sucralfate 1 gram tablet 1 g PO Q6H colitis 08/26/23 [History Last Taken 08/26/23 17:00] metoclopramide HCl 5 mg tablet 5 mg PO Q6 #120 tabs 08/29/23 [Rx Last Taken Unknown] pantoprazole 40 mg tablet,delayed release 40 mg PO DAILY #30 tabs 08/29/23 [Rx Last Taken Unknown] scopolamine base 1 mg over 3 days transdermal patch 1 patch transdermal Q3D #4 ea 08/29/23 [Rx Last Taken Unknown] Allergy/AdvReac Type Severity Reaction Status Date / Time Sulfa (Sulfonamide Allergy Unknown NEEDS Verified 08/26/23 11:56 Antibiotics) FOLLOW-UP amoxicillin AdvReac Severe Diarrhea Verified 08/26/23 11:56 sulfamethoxazole AdvReac Severe Anaphylaxis Verified 08/26/23 11:56 [From Bactrim] trimethoprim [From Bactrim] AdvReac Swelling Verified 08/26/23 11:56 Family History Brother Alcoholism Asthma Myocardial infarction, Onset Age: 52 Seizures Skin cancer Sister CVA (cerebral vascular accident) Asthma Grandfather Asthma Father Myocardial infarction, Onset Age: 46 Had at age 46 & 62 Mother Myocardial infarction, Onset Age: 82 Surgical History History of amputation of finger History of cataract surgery History of eye surgery History of right hip replacement History of total left hip replacement Social History household members: spouse Smoking Status: Former smoker Tobacco: How many years used: 30 how long ago did patient quit smokin years ago second hand exposure: No alcohol intake: current alcohol intake frequency: holidays/special occasions only Alcohol type: wine substance use type: does not use amy/uatsdin: None seatbelt use: always ROS ROS Narrative Review of systems: General: Patient denies fever or chills. HENT: Denies headache, denies stuffy nose, denies sore throat EYES: Denies changes in vision or discharge from eyes. Resp: Denies cough, denies shortness of breath Cardiac: Denies chest pain or palpitations. GI: Admits to severe cramping abdominal pain that coincides with her diarrhea along with nausea but she denies vomiting. : Denies changes in urination, dysuria, hematuria or urinary frequency. Extremity: Denies swelling Musculoskeletal: Feels somewhat generally weak and unwell but she denies arthralgias or myalgias. Neuro: Patient admits to transient confusion but denies headache, paresthesias or focal neurologic weakness. Heme: Patient admits to seeing blood in her stools. Skin: Denies rashes or wounds. Psychiatric: No complaints voiced about uncontrolled depression or anxiety. She remains hopeful and she is cautiously optimistic in spite of her metastatic melanoma diagnosis/prognosis. Endocrine: No polyuria, polydipsia or polyphagia. Allergic: Patient denies lip swelling, tongue swelling or urticaria. The rest of the 14 point ROS was negative except for positives in HPI. Vital Signs Vital Signs Vital Signs: 09/01/23 14:30 09/01/23 14:47 09/01/23 15:45 Temperature 95.8 F L 96.7 F L Temperature Source Temporal Temporal Pulse Rate 92 79 79 Respiratory Rate 16 14 16 Blood Pressure 117/50 L 114/59 L 132/70 H Blood Pressure Mean 72 77 90 Pulse Ox 96 98 97 Oxygen Delivery Method Room Air Room Air Room Air 09/01/23 16:30 09/01/23 18:50 09/01/23 19:25 Temperature Temperature Source Pulse Rate 80 81 84 Respiratory Rate 12 16 14 Blood Pressure 136/64 H 97/70 146/67 H Blood Pressure Mean 88 79 93 Pulse Ox 95 97 92 Oxygen Delivery Method Room Air Room Air Weight Weight: 161 lb 2.526 oz Body Mass Index (BMI) 25.9 Physical Exam Const alert, oriented x3, no apparent distress, average body habitus and healthy appearing General Appearance: cooperative HEENT normocephalic, head/scalp atraumatic and hearing grossly normal bilaterally HEENT Narrative: Oropharynx dry. Eyes PERRL and EOMs intact bilaterally Neck supple Resp normal respiratory effort, no retractions, no use of accessory muscles and clear to auscultation bilaterally Cardio regular rate and regular rhythm GI normal to inspection, nondistended, normoactive bowel sounds, soft to palpation and non-distended GI Narrative: Mild generalized tenderness to palpation. Extremity normal to inspection, full ROM and no clubbing, cyanosis or edema Skin Skin Narrative: Patient has no evidence of rash or wounds at this time. Neuro oriented x3, CN's II-XII intact bilaterally, moves all extremities and no focal motor deficits Sensorium / Orientation: awake, alert, oriented to person, oriented to place and oriented to time Speech: speech normal Motor Exam: strength 5/5 throughout Psych affect normal Results Medical Records Data Attestation: I reviewed the patient's medical records Lab / Micro Data Attestation: I reviewed the patient's lab results. 09/01/23 14:30 09/01/23 14:30 Labs: Laboratory Results - last 24 hr 09/01/23 14:30: WBC 11.5 H, RBC 3.61 L, Hgb 10.6 L, Hct 33.4 L, MCV 92.5, MCH 29.4, MCHC 31.7 L, RDW Std Deviation 57.7 H, RDW Coeff of Lynn 16.8 H, Plt Count 471 H, MPV 9.6, Immature Gran % (Auto) 1.000 H, Neut % (Auto) 67.4, Lymph % (Auto) 22.8, Emery % (Auto) 8.4, Eos % (Auto) 0.0, Baso % (Auto) 0.4, Absolute Neuts (auto) 7.7, Absolute Lymphs (auto) 2.62, Nucleated RBC % 0, Sodium 137, Potassium 4.1, Chloride 102, Carbon Dioxide 23.0, Anion Gap 12, BUN 8, Creatinine 0.80, Estim Creat Clear Calc 56.01, Est GFR (MDRD) Af Amer 89, Est GFR (MDRD) Non-Af 74, BUN/Creatinine Ratio 9.9 L, Glucose 171 H, Calcium 8.4 L, Total Bilirubin 0.70, AST 18, ALT 19, Alkaline Phosphatase 103, Troponin I High Sens 7, Total Protein 5.8 L, Albumin 2.3 L, Globulin 3.5, Albumin/Globulin Ratio 0.7 L, Lipase 54 09/01/23 18:47: Troponin I High Sens 6, Urine Color Yellow, Urine Clarity Clear, Urine pH 7.0, Ur Specific [facility] 1.005, Urine Protein Negative, Urine Glucose (UA) Normal, Urine Ketones Negative, Urine Occult Blood 10 H, Urine Nitrite Negative, Urine Bilirubin Negative, Urine Urobilinogen Normal, Ur Leukocyte Esterase Negative, Urine RBC 0 SEEN, Urine WBC 0 SEEN, Ur Squamous Epith Cells 0 SEEN, Urine Bacteria 0 SEEN, Urine Mucus 0 SEEN Micro: Microbiology 09/01/23 16:26 Stool Stool Occult Blood (MARQUES) - Final Occult Blood Positive Imagaing Radiology Impression Chest X-Ray 09/01/23 15:02 IMPRESSION: No acute cardiopulmonary process identified. Electronically Signed: Sarita Nguyen MD at 15:28 EST , Abdomen/Pelvis CT 09/01/23 15:11 IMPRESSION: 1. No acute inflammatory process or bowel obstruction. 2. Stable chronic changes as above. Electronically Signed: Uday Branch MD ([place]) at 17:19 EST , Assessment & Plan Assessment/Plan (1) Diarrhea: QUALIFIERS: Diarrhea type: presumed infectious Qualified Code(s): R19.7 - Diarrhea, unspecified (2) Abdominal pain: QUALIFIERS: Abdominal location: generalized Qualified Code(s): R10.84 - Generalized abdominal pain (3) Metabolic encephalopathy: PLAN: Plan 1. Acute diarrhea accompanied by severe spasmodic abdominal pain and Hemoccult positive stools in ER and leukocytosis of 11.5 present on admission in the setting of recent admission to the hospital here from 08/26/2023 to 08/29/2023 for the workup of chronic epigastric abdominal pain with EGD done that admission by Dr. Antonio of gastroenterology that revealed a small tumor that has been biopsied with results still pending at this time - Admit to general medical floor. Check stool panel and place on enteric precautions. Start empiric IV Flagyl until infectious etiology ruled out. Finally, we will consult Dr. Antonio to see this patient on-rounds in the AM for further recommendations with help appreciated in advance. 2. History of metastatic melanoma to lymph nodes; with subsequent severe colitis attributed to immunotherapy followed by Dr. Palma complicating #1 - Continue supportive care and monitor for improvement. 3. Hypoalbuminemia of 2.3 g/dL present on admission suspicious for acute severe protein calorie malnutrition compounding #1 & #2 - Check prealbumin to confirm suspicion. Add Ensure to meals. Finally, we will consult clinical dietitian to see this patient on-rounds in the AM for further recommendations with help appreciated in advance. 4. Metabolic encephalopathy attributable to #1 - #3 - Continue supportive care and monitor for improvement. 5. History of left lower extremity DVT and bilateral pulmonary emboli; on apixaban - Since blood loss is minimal after a recent biopsy we will continue Apixaban to minimize potential recurrence of VTE. 6. Essential hypertension - Continue home medications plus give prn IV Hydralazine for systolic blood pressure > 160 mm Hg. 7. Hyperlipidemia - Resume statin. 8. History of seizures - Stable with no evidence of recurrence. Give IV Ativan prn for breakthrough seizure activity. 9. History of myeloma - Noted. 10. History of adrenal insufficiency - Stable. 11. Polyneuropathy - Stable. 12. Chronic anemia - Stable. Check CBC daily. 13. History of COVID-19 - Noted. 14. Prior history of tobacco abuse - Noted. 15. DVT prophylaxis - Lovenox 40 mg sq daily. Total time: Approximately 55 minutes. Charges/Coding Visit Charges Inpatient E&M: 50460 Init Hosp L2
[2023-09-01 21:56] LABS: Prealbumin 8.1 mg/dL (20.0-40.0)
[2023-09-01] MEDS: Menthol/Lanolin/Calamine/Znox 113 GM Tube 1 APPLIC TOPICAL (23:05)
[2023-09-01] MEDS: Sucralfate 1 GM Tablet PO (23:05)
[2023-09-01] MEDS: APIXABAN 5 MG TABLET PO (23:06)
[2023-09-01] MEDS: Pantoprazole Sodium 40 MG Tablet PO (23:06)
[2023-09-01] MEDS: metroNIDAZOLE 500 MG/100 ML BAG 100 MG IV (23:06)
[2023-09-01] MEDS: Metoclopramide 5 MG TABLET PO (23:07)
[2023-09-01] MEDS: Atorvastatin Calcium 40 MG Tablet PO (23:07)
[2023-09-02] VITALS (7 sets, daily range): BP systolic 109–123; BP diastolic 49–72; PULSE 78–120; RESP 16–18; TEMP 36.4–37.1; O2SAT 94–98
[2023-09-02] MEDS: Menthol/Lanolin/Calamine/Znox 113 GM Tube 1 APPLIC TOPICAL ×3 (05:20→20:35)
[2023-09-02] MEDS: metroNIDAZOLE 500 MG/100 ML BAG 100 MG IV ×3 (05:20→20:34)
[2023-09-02] MEDS: Metoclopramide 5 MG TABLET PO (05:21)
[2023-09-02] MEDS: Sucralfate 1 GM Tablet PO ×4 (05:21→20:34)
[2023-09-02] MEDS: predniSONE 5 MG Tablet PO (08:51)
[2023-09-02] MEDS: Potassium Chloride Oral Tablet 20 MEQ PO ×2 (08:51→18:02)
[2023-09-02] MEDS: Metoprolol(XL)Succ 50 MG Tablet PO (08:52)
[2023-09-02 09:52] LABS: Troponin-I HS 10 pg/mL (3.0-54.0)
[2023-09-02] MEDS: Ondansetron 8 MG Tablet PO ×2 (09:55→18:15)
--- NOTE | 2023-09-02 10:00 | PN.HOSP_ITS ---
Reason for Visit Reason for Visit: Diarrhea/abdominal pain Subjective Subjective Patient is a 78-year-old female who was recently admitted here from 08/26/2023 [facility] 08/29/2023 with upper abdominal pain nausea and dry heaving. 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 Biopsy was obtained during the EGD and the patient was feeling much better. She was able to tolerate diet following and was able to be discharged home. At that time we sent her home with Protonix, Carafate and added Reglan and scopolamine for nausea. She return to the emergency department last evening complaining of abdominal pain and diarrhea. She indicated she had been doing well up until her acute symptoms began on the day of presentation. She experienced abrupt onset of epigastric pain so she went to take a nap. Then later while on the toilet in the midst of an effort to have a bowel movement she suddenly became diaphoretic, pale, dizzy, and nauseous. Sounds like she had a vasovagal event. Her's immediately came to her sister and noted that she was confused and he had difficulty getting up off the toilet. He activated EMS and they brought her to the emergency department for further evaluation. 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 We did discharge her from the last hospitalization on a full liquid diet with instructions to advance slowly to soft diet. In the emergency department she was noted to have diarrhea stools with some pink discoloration so Hemoccult was performed and was positive. She has been Hemoccult positive previously likely due to her chronic colitis. Stool studies were sent and she was admitted to the medical floor for ongoing treatment of her acute onset diarrhea and change in her abdominal pain. C. difficile was found to be positive and she was placed on IV Flagyl empirically prior to C. difficile returning. I have since added vancomycin today. Patient indicated multiple times she is concerned about her memory. It does seem that her memory seems as a little bit worse now than it had been previously. I did tell her we would check an MRI to rule out any metastatic disease to the brain and this would likely be done tomorrow. She is still having diarrhea and we discussed her C. difficile diagnosis and with the plan would be for treatment. She also has redeveloped some of the upper abdominal pain that she had previously and I suspect that duodenal mass is causing problems in that area. Objective Data Objective Data Vital Signs: Vital Signs Temp Pulse Resp BP Pulse Ox O2 Del Method 98.8 F 120 H 18 112/72 95 Room Air 09/02/23 08:47 09/02/23 08:55 09/02/23 08:47 09/02/23 08:52 09/02/23 08:47 09/02/23 08:55 Oxygen Delivery Method Room Air Weight: 68.7 kg Body Mass Index (BMI) 24.4 Intake & Output: Intake and Output for Last 24 Hours 08/31/23 09/01/23 09/02/23 23:59 23:59 23:59 Intake Total 815 / 815 Balance 815 / 815 Lab / Micro Data 09/02/23 09:25 09/02/23 09:25 Labs: Laboratory Results - last 24 hr 09/01/23 14:30: WBC 11.5 H, RBC 3.61 L, Hgb 10.6 L, Hct 33.4 L, MCV 92.5, MCH 29.4, MCHC 31.7 L, RDW Std Deviation 57.7 H, RDW Coeff of Lynn 16.8 H, Plt Count 471 H, MPV 9.6, Immature Gran % (Auto) 1.000 H, Neut % (Auto) 67.4, Lymph % (Auto) 22.8, [place] % (Auto) 8.4, Eos % (Auto) 0.0, Baso % (Auto) 0.4, Absolute Neuts (auto) 7.7, Absolute Lymphs (auto) 2.62, Nucleated RBC % 0, Sodium 137, Potassium 4.1, Chloride 102, Carbon Dioxide 23.0, Anion Gap 12, BUN 8, Creatinine 0.80, Estim Creat Clear Calc 56.01, Est GFR (MDRD) Af Amer 89, Est GFR (MDRD) Non-Af 74, BUN/Creatinine Ratio 9.9 L, Glucose 171 H, Calcium 8.4 L, Total Bilirubin 0.70, AST 18, ALT 19, Alkaline Phosphatase 103, Troponin I High Sens 7, Total Protein 5.8 L, Albumin 2.3 L, Globulin 3.5, Albumin/Globulin Ratio 0.7 L, Lipase 54 09/01/23 18:47: Troponin I High Sens 6, Prealbumin 8.1 L, Urine Color Yellow, Urine Clarity Clear, Urine pH 7.0, Ur Specific [place] 1.005, Urine Protein Negative, Urine Glucose (UA) Normal, Urine Ketones Negative, Urine Occult Blood 10 H, Urine Nitrite Negative, Urine Bilirubin Negative, Urine Urobilinogen Normal, Ur Leukocyte Esterase Negative, Urine RBC 0 SEEN, Urine WBC 0 SEEN, Ur Squamous Epith Cells 0 SEEN, Urine Bacteria 0 SEEN, Urine Mucus 0 SEEN 09/02/23 09:25: Troponin I High Sens 10 Micro: Microbiology 09/01/23 23:00 Stool Stool Lactoferrin - Final 09/01/23 23:00 Stool Enteric Bacteriology - Final 09/01/23 23:00 Stool C. difficile GDH Antigen & Toxins - Final 09/01/23 23:00 Stool Clostridioides difficile (PCR) - Final 09/01/23 16:26 Stool Stool Occult Blood (MARQUES) - Final Occult Blood Positive Radiography Diagnostic Testing: Radiology Impression Chest X-Ray 09/01/23 15:02 IMPRESSION: No acute cardiopulmonary process identified. Electronically Signed: Sarita Nguyen MD at 15:28 EST , Abdomen/Pelvis CT 09/01/23 15:11 IMPRESSION: 1. No acute inflammatory process or bowel obstruction. 2. Stable chronic changes as above. Electronically Signed: Uday Branch MD ([place]) at 17:19 EST , Physical Exam Const alert, oriented x3, no apparent distress and average body habitus; Negative for healthy appearing or well nourished Constitutional Narrative: Older, white female, sitting up in bed, watching television, appears comfortable and nontoxic currently, is oriented x 3 but does seem to have difficulty with memory overall HEENT head/scalp atraumatic and moist oral mucous membranes HEENT Narrative: Mallampati 2-3, no thrush Head and Scalp: normocephalic Resp normal respiratory effort, no retractions, no use of accessory muscles and clear to auscultation bilaterally Auscultation: Negative for rales, rhonchi or wheezes Cardio regular rate, regular rhythm, S1 normal heart sound, S2 normal heart sound, no murmurs, no rub, no gallops and no clicks GI normal to inspection, nondistended, normoactive bowel sounds and soft to palpation GI Narrative: Mild tenderness in the epigastrium with this slightly invoking nausea however nothing like she was previously, mild tenderness in the lower abdomen as well Extremity no clubbing, cyanosis or edema Extremity Narrative: Pedal pulses are 2+ Neuro oriented x3, moves all extremities and no focal motor deficits Speech: speech normal Psych Psych Narrative: Affect is slightly flat but great for current condition, patient appears frustrated with her memory Assessment & Plan Assessment/Plan (1) Metabolic encephalopathy: (2) C. difficile colitis: (3) Weakness: (4) Abdominal pain: QUALIFIERS: Abdominal location: generalized Qualified Code(s): R10.84 - Generalized abdominal pain (5) Diarrhea: QUALIFIERS: Diarrhea type: presumed infectious Qualified Code(s): R19.7 - Diarrhea, unspecified (6) Duodenal mass: PLAN: Plan C. difficile infection/diarrhea -C. difficile is positive -Continue IV Flagyl and add oral vancomycin given her history of immu nosuppression -Transition to oral vancomycin at discharge for total treatment day of 14 days--> day 1 of 14 -Add Bentyl for abdominal cramping -Isolation for C. difficile -Monitor stools -IV fluid is p.o. intake has been poor logy consulted for Hemoccult positive stools however she has had Hemoccult positive stools due to history of colitis -She also was found to have C. 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 -GI consult pending -Hoping that the pathology on the mass pathology comes back soon and Dr. Antonio can decide if it is amenable to removal by endoscopy Severe malnutrition -Add Ensure supplementation -Dietary consult pending Mild cognitive impairment with acute confusion -Will check MRI with IV contrast with history of melanoma to rule out metastatic disease -MRI should be done tomorrow Failure to thrive/debility -Anticipate multifactorial -Patient was seen by PT and OT at last hospitalization she did well enough to go home we will hold off on consultation for now unless she is here for next period of time -Case management and social work consultation to assist with discharge planning -Suspect patient at the very least will need home health at discharge however may need placement depending on functional status Acute anemia -Hemoglobin has been trending down since mid June when she was started on Eliquis for PE -Baseline hemoglobin prior to June was 12-14 - hemoglobin was 10.6 on admission however she looked a little bit dehydrated but stable on repeat -Protonix and Carafate as noted above -Concern for some GI loss -Patient is fully anticoagulated for history of DVT/PE--> will continue for now given the extensiveness of her PE but if her hemoglobin drops we will need to discontinue -Patient was diagnosed with an occlusive thrombus on 07/05/2023 -May need to consider IVC filter if acute bleeding is found and GI feels like she should come off Eliquis -GI consultation is pending PE/DVT -Patient was diagnosed with occlusive thrombus in the left pulmonary artery with nonocclusive clot in the distal peripheral branches of the right pulmonary artery with moderate thrombus in the mid and distal half of the left main pulmonary artery with no saddle embolus on 07/05/2023 -Has been on Eliquis since that point in time -Hemoglobin has down trended since then as well -Will continue Eliquis for now but may need to hold temporarily if patient seems to be having an acute GI bleed -If GI recommended patient to come off Eliquis may need to consider IVC filter Metastatic melanoma -Had been maintained on immunotherapy however recent issues with immunotherapy related colitis -Patient had severe diarrhea that required high-dose steroids--> steroids are being weaned -Follows with Dr. Palma--> patient had been responding well to therapy however had significant side effects and plan is to restage -Upcoming PET scan -Recommend ongoing outpatient follow-up--> follows with Dr. Palma Hypertension -At goal -Continue home medications with lisinopril and metoprolol -As needed IV hydralazine is available -May need to consider IV replacement if p.o. intake remains problematic Hyperlipidemia -Continue home statin Immunotherapy related colitis -Continue low-dose steroid--> currently on 5 mg daily -Outpatient follow-up with Dr. Palma Adrenal insufficiency -Continue prednisone therapy History of GERD -Continue PPI and Carafate if patient tolerates History of cerebellar stroke -Continue risk factor modification History of epilepsy -Patient follows as an outpatient with Dr. Hughes -Does not take any antiepileptic medication -Monitor History of tobacco abuse -Remote DVT prophylaxis -Currently fully anticoagulated for recent PE CODE STATUS -Full code is verified on admission Charges/Coding Visit Charges Inpatient E&M: 88731 Subs Hosp L2
[2023-09-02 10:33] LABS: Anion Gap 10 (5-15); BUN 9 mg/dL (7-18); BUN/Creat Ratio 11.9 RATIO (10-20); Calcium,Total 7.7 mg/dL (8.5-10.1); Chloride 104 mmol/L (98-107); Creatinine, Serum 0.76 mg/dL (0.55-1.02); EST Glomerular Filtration Rate 79 mL/min (>60); Est Glom Filt Rate - Afr Amer 95 mL/min (>60); Glucose 132 mg/dL (74-106); Potassium 3.5 mmol/L (3.5-5.1); Sodium Level 137 mmol/L (136-145)
[2023-09-02 10:40] LABS: Basophil# 0.04 X10^3/uL; Basophil% 0.5 % (0-1); Eosinophil# 0.02 X10^3/uL; Eosinophils% 0.2 % (0-5); Hematocrit 32.6 % (37-47); Hemoglobin 10.6 g/dL (12.0-15.0); Lymphocyte % 17.5 % (19-41); Mean Corp Hgb Conc 32.5 g/dL (32-36); Mean Corpuscular Hgb 30.2 pg (27.0-32.0); Mean Corpuscular Volume 92.9 fL (81-99); Mean Platelet Vol. 9.3 fl (6.2-12.0); Monocyte# 0.96 X10^3/uL; Monocyte% 11.2 % (0-10); NRBC Flagged by Analyzer 0 % (0-5); Neutrophil # 6.01 X10^3/uL (2.7-7.7); Platelet Count 352 K/mm3 (150-450); RBC Distribution Width SD 57.9 fl (35.1-43.9); Red Blood Count 3.51 M/mm3 (4.2-5.4); White Blood Count 8.6 K/mm3 (4.4-11.0)
[2023-09-02] MEDS: APIXABAN 5 MG TABLET PO ×2 (11:08→20:34)
[2023-09-02] MEDS: Pantoprazole Sodium 40 MG Tablet PO ×2 (11:08→20:34)
[2023-09-02] MEDS: Lisinopril 20 MG Tablet PO (11:09)
[2023-09-02] MEDS: Mag Hydrox/Al Hydrox/Simeth 30 ML UDC PO (11:10)
[2023-09-02] MEDS: Ensure Plus High Protein 120 ML LIQUID PO ×2 (11:16→20:40)
[2023-09-02 11:39] LABS: Troponin-I HS 8 pg/mL (3.0-54.0)
[2023-09-02] MEDS: Metoclopramide 10 MG/2 ML Vial 5 MG IV ×2 (12:21→18:16)
[2023-09-02] MEDS: Vancomycin 125 MG/5 ML Susp PO.SYRINGE PO ×2 (12:22→18:03)
[2023-09-02] MEDS: 0.9% Normal Saline (1000mL) 1,000 ML 75 ML IV (14:09)
[2023-09-02 15:51] LABS: Troponin-I HS 7 pg/mL (3.0-54.0)
[2023-09-02] MEDS: Dicyclomine 10 MG Capsule PO (18:02)
--- NOTE | 2023-09-02 19:45 | CON.PCM.GI_ITS ---
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 ER complaining of worsening abdominal pain with diarrhea. Mrs. Huerta has a limited recollection of today's events (but thankfully her was present at the bedside to augment the history) but reports she had been doing well until her acute symptoms began earlier today when she experienced the abrupt onset of her epigastric pain so she went to take a nap. Then while on the toilet while in the midst of an effort to have a bowel movement she suddenly became diaphoretic, pale, dizzy and nauseous. Her immediately came to her assistance and noted that she was confused and when he then had difficulty trying to get her up off the toilet he activated EMS to bring her into the hospital for further evaluation and treatment. She admits to chronically loose stools with fecal incontinence but she denies a previous history of the painful cramping sensation that takes her breath away which is new. Up to this point she has been tolerating her clear liquid diet with no other significant acute complaints other than the ones outlined above. In the ER she was noted to have diarrheal stools with some pink discoloration that was Hemoccult positive with laboratory evidence of hypoalbuminemia at 2.3 g/dL present on admission suspicious for acute severe protein calorie malnutrition compounded by clinical evidence of metabolic encephalopathy and she was then admitted to the general medical floor under observation status for stay that is expected to be less than 48 hours. [facility] Medical History Adrenal insufficiency Anemia Anticoagulated Bilateral pulmonary embolism COVID-19 Essential hypertension Former smoker GERD (gastroesophageal reflux disease) History of immunosuppression therapy History of steroid therapy Hyperlipidemia Left leg DVT 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 Mild cognitive impairment Myeloma Polyneuropathy Post-menopausal Seizures Home Medications metoprolol succinate 50 mg tablet,extended release 24 hr 50 mg PO DAILY heart rate ##0 08/15/20 [Rx Last Taken 08/26/23 10:00] atorvastatin 40 mg tablet 40 mg PO DAILY cholesterol 09/24/20 [History Last Taken 08/26/23 10:00] melatonin 5 mg capsule 3 mg PO QHS PRN Sleep 10/26/20 [History Last Taken 09/12/22] lisinopril 20 mg tablet 20 mg PO DAILY blood pressure 07/13/23 [History Last Taken 08/26/23 10:00] acetaminophen 500 mg tablet 1,000 mg (2 x 500 mg) PO Q6H PRN PRN Pain Score 1-5 #0 tabs 07/27/23 [Rx Last Taken Unknown] apixaban 5 mg tablet (Eliquis) 5 mg PO BID blood thinner 30 days #60 tabs 07/27/23 [Rx Last Taken 08/26/23 10:00] potassium chloride 20 mEq tablet,extended release(part/cryst) (Klor-Con M) 20 meq PO BIDCM supplement 30 days #60 tabs 07/27/23 [Rx Last Taken 08/26/23 09:00] nystatin 100,000 unit/mL oral suspension 5 ml PO Q8H PRN PRN thrush 08/26/23 [History Last Taken Unknown] ondansetron HCl 8 mg tablet 8 mg PO Q8H PRN nausea 08/26/23 [History Last Taken 08/25/23] prednisone 10 mg tablet 5 mg PO DAILYCM colitis 08/26/23 [History Last Taken 08/26/23 10:00] sucralfate 1 gram tablet 1 g PO Q6H colitis 08/26/23 [History Last Taken 08/26/23 17:00] metoclopramide HCl 5 mg tablet 5 mg PO Q6 #120 tabs 08/29/23 [Rx Last Taken Unknown] pantoprazole 40 mg tablet,delayed release 40 mg PO DAILY #30 tabs 08/29/23 [Rx Last Taken Unknown] scopolamine base 1 mg over 3 days transdermal patch 1 patch transdermal Q3D #4 ea 08/29/23 [Rx Last Taken Unknown] Allergy/AdvReac Type Severity Reaction Status Date / Time Sulfa (Sulfonamide Allergy Unknown NEEDS Verified 08/26/23 11:56 Antibiotics) FOLLOW-UP amoxicillin AdvReac Severe Diarrhea Verified 08/26/23 11:56 sulfamethoxazole AdvReac Severe Anaphylaxis Verified 08/26/23 11:56 [From Bactrim] trimethoprim [From Bactrim] AdvReac Swelling Verified 08/26/23 11:56 Family History Brother Alcoholism Asthma Myocardial infarction, Onset Age: 52 Seizures Skin cancer Sister CVA (cerebral vascular accident) Asthma Grandfather Asthma Father Myocardial infarction, Onset Age: 46 Had at age 46 & 62 Mother Myocardial infarction, Onset Age: 82 Surgical History History of amputation of finger History of cataract surgery History of eye surgery History of right hip replacement History of total left hip replacement Social History household members: spouse Smoking Status: Former smoker Tobacco: How many years used: 30 how long ago did patient quit smokin years ago second hand exposure: No alcohol intake: current alcohol intake frequency: holidays/special occasions only Alcohol type: wine substance use type: does not use amy/congregation: None seatbelt use: always ROS ROS Narrative Review of systems: General: Patient denies fever or chills. HENT: Denies headache, denies stuffy nose, denies sore throat EYES: Denies changes in vision or discharge from eyes. Resp: Denies cough, denies shortness of breath Cardiac: Denies chest pain or palpitations. GI: Admits to severe cramping abdominal pain that coincides with her diarrhea along with nausea but she denies vomiting. : Denies changes in urination, dysuria, hematuria or urinary frequency. Extremity: Denies swelling Musculoskeletal: Feels somewhat generally weak and unwell but she denies arthralgias or myalgias. Neuro: Patient admits to transient confusion but denies headache, paresthesias or focal neurologic weakness. Heme: Patient admits to seeing blood in her stools. Skin: Denies rashes or wounds. Psychiatric: No complaints voiced about uncontrolled depression or anxiety. She remains hopeful and she is cautiously optimistic in spite of her metastatic melanoma diagnosis/prognosis. Endocrine: No polyuria, polydipsia or polyphagia. Allergic: Patient denies lip swelling, tongue swelling or urticaria. The rest of the 14 point ROS was negative except for positives in HPI. Physical Exam Narrative Patient states she is feeling so much better. Tolerating full liquid diet without any pain or nausea. Less pain with palpation of her upper abdomen. States she is anxious to go home if possible and will follow-up as an outpatient to obtain her results. Const alert, oriented x3, no apparent distress and average body habitus; Negative for healthy appearing or well nourished Constitutional Narrative: Older, white female, sitting up in bed, patient appears well today, nontoxic, at bedside General Appearance: cooperative, comfortable, well kempt and well developed Orientation / Consciousness: awake, oriented to person, oriented to place and oriented to time Exam Limitations: no limitations HEENT normocephalic, head/scalp atraumatic and moist oral mucous membranes HEENT Narrative: Mallampati 2, no thrush Eyes PERRL and conjunctivae normal Eyes Narrative: No scleral icterus Neck supple Neck Narrative: Trachea midline Resp normal respiratory effort, no retractions, no use of accessory muscles and clear to auscultation bilaterally Auscultation: Negative for rales, rhonchi or wheezes Cardio regular rate, regular rhythm, S1 normal heart sound, S2 normal heart sound, no murmurs, no rub, no gallops and no clicks GI normal to inspection, nondistended, normoactive bowel sounds and soft to palpation GI Narrative: No pain with palpation to the upper abdomen/epigastric area and no resultant nausea with palpation Extremity no clubbing, cyanosis or edema Extremity Narrative: Pedal pulses are 2+ Skin no rashes or lesions noted, no wounds and no jaundice Neuro oriented x3, moves all extremities and no focal motor deficits Speech: speech normal Psych affect normal Psych Narrative: Eye contact is good, patient interacts appropriately and normally Medical Records Data Medical Nutrition Assessment Dietitian: Malnutrition Criteria Met Start: 09/02/23 12:55 Freq: Status: Active Protocol: Document 09/02/23 12:56 SLA (Rec: 09/02/23 12:56 SLA Desktop) Nutrition Malnutrition Evidence of Malnutrition Exists Yes Malnutrition (severe): Chronic Evidenced By Suboptimal Energy Intake ( Severe),Weight Loss (Severe) Clinical Problem Chronic Disease or Condition Related Malnutrition Etiology related to GI dysfunction and inadequate energy intake Signs/Symptoms as evidenced by <75% po intake x > 1 month and 16% unintended wt loss x 6 months 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 Status Active Problem Recommendation Dietitian Recommendations/Changes As medically able, rec SHELBIE to liberal Regular Continue 4 oz ensure plus high protein 4x/day w/ medpass Lab / Micro Data 09/02/23 09:25 09/02/23 09:25 Labs: Laboratory Results - last 24 hr 09/01/23 18:47: Prealbumin 8.1 L 09/02/23 09:25: WBC 8.6, RBC 3.51 L, Hgb 10.6 L, Hct 32.6 L, MCV 92.9, MCH 30.2, MCHC 32.5, RDW Std Deviation 57.9 H, RDW Coeff of [place] 17.0 H, Plt Count 352, MPV 9.3, Immature Gran % (Auto) 0.600, Neut % (Auto) 70.0, Lymph % (Auto) 17.5 L, [place] % (Auto) 11.2 H, Eos % (Auto) 0.2, Baso % (Auto) 0.5, Absolute Neuts (auto) 6.0, Absolute Lymphs (auto) 1.50, Nucleated RBC % 0, Sodium 137, Potassium 3.5, Chloride 104, Carbon Dioxide 23.0, Anion Gap 10, BUN 9, Creatinine 0.76, Estim Creat Clear Calc 44.80, Est GFR (MDRD) Af Amer 95, Est GFR (MDRD) Non-Af 79, BUN/Creatinine Ratio 11.9, Glucose 132 H, Calcium 7.7 L, Troponin I High Sens 10 09/02/23 11:12: Troponin I High Sens 8 09/02/23 15:11: Troponin I High Sens 7 Micro: Microbiology 09/01/23 23:00 Stool Stool Lactoferrin - Final 09/01/23 23:00 Stool Enteric Bacteriology - Final 09/01/23 23:00 Stool C. difficile GDH Antigen & Toxins - Final 09/01/23 23:00 Stool Clostridioides difficile (PCR) - Final 09/01/23 16:26 Stool Stool Occult Blood (MARQUES) - Final Occult Blood Positive Assessment & Plan Assessment/Plan (1) Metabolic encephalopathy: (2) C. difficile colitis: (3) Weakness: (4) Abdominal pain: QUALIFIERS: Abdominal location: generalized Qualified Code(s): R10.84 - Generalized abdominal pain (5) Diarrhea: QUALIFIERS: Diarrhea type: presumed infectious Qualified Code(s): R19.7 - Diarrhea, unspecified (6) Duodenal mass: PLAN: Plan Diarrhea -C. difficile is positive -Continue IV Flagyl and add oral vancomycin given her history of immunosuppression -Transition to oral vancomycin at discharge for total treatment day of 14 days--> day 1 of 14 -Isolation for C. difficile -Monitor stools -IV fluid is p.o. intake has been poor logy consulted for Hemoccult positive stools however she has had Hemoccult positive stools due to history of colitis -She also was found to have C. 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 difficile recurrent -Will continue Reglan but make IV while she is hospitalized -Continue scopolamine patch -Continue Carafate if able to tolerate p.o. Acute anemia -Hemoglobin has been trending down since mid June when she was started on Eliquis for PE -Baseline hemoglobin prior to June was 12-14 -Hemoglobin was 10.6 on admission however she looked a little bit dehydrated but stable on repeat -Concern for some GI loss -Patient is fully anticoagulated for history of DVT/PE--> will continue for now given the extensiveness of her PE but if her hemoglobin drops we will need to discontinue -Patient was diagnosed with an occlusive thrombus on 07/05/2023 -May need to consider IVC filter but her bleeding has stopped for now as I think she developed some episodes of ischemic colitis associated with acute C. difficile infection Charges/Coding Visit Charges Inpatient E&M: 04631 Init Hosp L3
[2023-09-02] MEDS: Atorvastatin Calcium 40 MG Tablet PO (20:34)
[2023-09-03] MEDS: Vancomycin 125 MG/5 ML Susp PO.SYRINGE PO ×5 (00:54→23:51)
[2023-09-03] MEDS: Metoclopramide 10 MG/2 ML Vial 5 MG IV ×5 (00:54→23:51)
[2023-09-03 02:15] VITALS: BP 134/72; PULSE 93; RESP 18; TEMP 36.6; O2SAT 97
[2023-09-03] MEDS: 0.9% Normal Saline (1000mL) 1,000 ML 75 ML IV ×2 (04:53→21:26)
[2023-09-03] MEDS: metroNIDAZOLE 500 MG/100 ML BAG 100 MG IV ×3 (06:42→21:27)
[2023-09-03] MEDS: Menthol/Lanolin/Calamine/Znox 113 GM Tube 1 APPLIC TOPICAL ×3 (06:42→21:29)
[2023-09-03] MEDS: Sucralfate 1 GM Tablet PO ×4 (06:43→21:26)
[2023-09-03] MEDS: predniSONE 5 MG Tablet PO (06:49)
[2023-09-03] MEDS: Potassium Chloride Oral Tablet 20 MEQ PO ×2 (06:49→17:12)
--- NOTE | 2023-09-03 06:53 | MRI_ITS ---
STUDY: MRI BRAIN WITH AND WITHOUT CONTRAST REASON FOR EXAM: Female, 78 years old. Melanoma TECHNIQUE: Multiplanar multisequence imaging of the brain was performed without and following the administration of intravenous contrast. COMPARISON: Noncontrast head CT 08/28/2023, brain MRI 08/23/2020 FINDINGS: The ventricles, cisterns, and sulci are within normal limits for patients age. There is no restricted diffusion to suggest acute ischemia or infarction. No succeptibility artifict to suggest intracranial hemorrhage or mineralization. Major intracranial signal voids are preserved. Extensive increased T2 signal in the periventricular white matter. There is no midline shift, mass effect, or extra axial fluid collections are seen. No CP angle or IAC mass is seen. The orbits are unremarkable. The sella turcica and craniovertebral junction are within normal limits. The visualized paranasal sinuses are clear. Left otomastoiditis. No abnormal enhancement is seen. MRI/Brain W/WO Contrast IMPRESSION: Stable changes of chronic microvascular ischemia. No evidence of intracranial metastasis. Electronically Signed: Jai Sexton MD at 17:30 EST ,
[2023-09-03 07:02] LABS: Absolute Lymphocyte Count 1.53 X10^3/uL (0.83-4.51); Absolute Neutrophil Count 4.2 X10^3/uL (2.0-7.7); Basophil# 0.02 X10^3/uL; Basophil% 0.3 % (0-1); Eosinophil# 0.03 X10^3/uL; Eosinophils% 0.5 % (0-5); Hematocrit 27.9 % (37-47); Lymphocyte # 1.53 X10^3/ul (0.83-4.51); Lymphocyte % 23.3 % (19-41); Mean Corp Hgb Conc 32.3 g/dL (32-36); Mean Corpuscular Hgb 29.9 pg (27.0-32.0); Mean Corpuscular Volume 92.7 fL (81-99); Mean Platelet Vol. 9.2 fl (6.2-12.0); Monocyte# 0.75 X10^3/uL; Monocyte% 11.4 % (0-10); NRBC Flagged by Analyzer 0 % (0-5); Platelet Count 261 K/mm3 (150-450); RBC Distribution Width CV 16.4 % (11.6-14.6); RBC Distribution Width SD 56.5 fl (35.1-43.9); Red Blood Count 3.01 M/mm3 (4.2-5.4); White Blood Count 6.6 K/mm3 (4.4-11.0)
[2023-09-03 07:19] LABS: Anion Gap 5 (5-15); BUN 11 mg/dL (7-18); BUN/Creat Ratio 20.4 RATIO (10-20); Calcium,Total 7.8 mg/dL (8.5-10.1); Chloride 107 mmol/L (98-107); Creatinine, Serum 0.54 mg/dL (0.55-1.02); EST Glomerular Filtration Rate 117 mL/min (>60); Est Glom Filt Rate - Afr Amer 141 mL/min (>60); Glucose 87 mg/dL (74-106); Magnesium 1.8 mg/dL (1.6-2.6); Phosphorus 2.4 mg/dL (2.5-4.9); Potassium 3.6 mmol/L (3.5-5.1); Sodium Level 137 mmol/L (136-145)
[2023-09-03 09:39] VITALS: BP 118/59; PULSE 99; RESP 18; TEMP 37.2; O2SAT 96
[2023-09-03 09:46] VITALS: PULSE 99
[2023-09-03] MEDS: Metoprolol(XL)Succ 50 MG Tablet PO (09:46)
[2023-09-03] MEDS: Lisinopril 20 MG Tablet PO (09:46)
[2023-09-03] MEDS: APIXABAN 5 MG TABLET PO ×2 (09:46→21:26)
[2023-09-03] MEDS: Pantoprazole Sodium 40 MG Tablet PO ×2 (09:46→21:26)
[2023-09-03] MEDS: Ensure Plus High Protein 120 ML LIQUID PO ×4 (09:49→21:29)
--- NOTE | 2023-09-03 10:20 | PCM.PN.HOSP ---
Reason for Visit Reason for Visit: Diagnoses Enterocolitis due to Clostridium difficile, not specified as recurrent (09/02/23) Metabolic encephalopathy (09/02/23) Other diseases of stomach and duodenum (09/02/23) Generalized abdominal pain (09/02/23) Diarrhea, unspecified (09/02/23) Weakness (09/02/23) Objective Data Objective Data Vital Signs: Vital Signs Temp Pulse Resp BP Pulse Ox O2 Del Method 99 F 99 18 118/59 L 96 Room Air 09/03/23 09:39 09/03/23 09:46 09/03/23 09:39 09/03/23 09:39 09/03/23 09:39 09/03/23 09:42 Oxygen Delivery Method Room Air Weight: 151 lb 7.321 oz Body Mass Index (BMI) 24.4 Intake & Output: Intake and Output for Last 24 Hours 09/01/23 09/02/23 09/03/23 23:59 23:59 23:59 Intake Total 1615 / 1955 1680 / 1680 Balance 1615 / 5 1680 / 1680 Medical Nutrition Assessment Dietitian: Malnutrition Criteria Met Start: 09/02/23 12:55 Freq: Status: Active Protocol: Document 09/02/23 12:56 SLA (Rec: 09/02/23 12:56 SLA Desktop) Nutrition Malnutrition Evidence of Malnutrition Exists Yes Malnutrition (severe): Chronic Evidenced By Suboptimal Energy Intake ( Severe),Weight Loss (Severe) Clinical Problem Chronic Disease or Condition Related Malnutrition Etiology related to GI dysfunction and inadequate energy intake Signs/Symptoms as evidenced by <75% po intake x > 1 month and 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 Problem Recommendation Dietitian Recommendations/Changes As medically able, rec SHELBIE to liberal Regular Continue 4 oz ensure plus high protein 4x/day w/ medpass Lab / Micro Data 09/03/23 06:25 09/03/23 06:25 Labs: Laboratory Results - last 24 hr 09/02/23 09:25: WBC 8.6, RBC 3.51 L, Hgb 10.6 L, Hct 32.6 L, MCV 92.9, MCH 30.2, MCHC 32.5, RDW Std Deviation 57.9 H, RDW Coeff of [place] 17.0 H, Plt Count 352, MPV 9.3, Immature Gran % (Auto) 0.600, Neut % (Auto) 70.0, Lymph % (Auto) 17.5 L, [place] % (Auto) 11.2 H, Eos % (Auto) 0.2, Baso % (Auto) 0.5, Absolute Neuts (auto) 6.0, Absolute Lymphs (auto) 1.50, Nucleated RBC % 0, Sodium 137, Potassium 3.5, Chloride 104, Carbon Dioxide 23.0, Anion Gap 10, BUN 9, Creatinine 0.76, Estim Creat Clear Calc 44.80, Est GFR (MDRD) Af Amer 95, Est GFR (MDRD) Non-Af 79, BUN/Creatinine Ratio 11.9, Glucose 132 H, Calcium 7.7 L 09/02/23 11:12: Troponin I High Sens 8 09/02/23 15:11: Troponin I High Sens 7 09/03/23 06:25: WBC 6.6, RBC 3.01 L, Hgb 9.0 L, Hct 27.9 L, MCV 92.7, MCH 29.9, MCHC 32.3, RDW Std Deviation 56.5 H, RDW Coeff of [place] 16.4 H, Plt Count 261, MPV 9.2, Immature Gran % (Auto) 0.500, Neut % (Auto) 64.0, Lymph % (Auto) 23.3, [place] % (Auto) 11.4 H, Eos % (Auto) 0.5, Baso % (Auto) 0.3, Absolute Neuts (auto) 4.2, Absolute Lymphs (auto) 1.53, Nucleated RBC % 0, Sodium 137, Potassium 3.6, Chloride 107, Carbon Dioxide 25.0, Anion Gap 5, BUN 11, Creatinine 0.54 L, Estim Creat Clear Calc 44.80, Est GFR (MDRD) Af Amer 141, Est GFR (MDRD) Non-Af 117, BUN/Creatinine Ratio 20.4 H, Glucose 87, Calcium 7.8 L, Phosphorus 2.4 L, Magnesium 1.8 Micro: Microbiology 09/01/23 23:00 Stool Stool Lactoferrin - Final 09/01/23 23:00 Stool Enteric Bacteriology - Final 09/01/23 23:00 Stool C. difficile GDH Antigen & Toxins - Final 09/01/23 23:00 Stool Clostridioides difficile (PCR) - Final 09/01/23 16:26 Stool Stool Occult Blood (MARQUES) - Final Occult Blood Positive Physical Exam Narrative Seen and examined. Patient does not have abdominal pain. Diarrhea is also better. Her last abdominal pain was day before yesterday but sometimes abdominal discomfort. Physical exam General: Alert, Oriented x3, Cooperative HEENT: Atraumatic, PERRLA, EOMI, Normocephalic Oral: No Gingival or Mucosal Lesions/ Ulcerations Neck: Supple, No JVD, Negative Carotid Bruits Lungs: Air entry diminished in bilateral lung bases. No crepitation/rhonchi Cardiovascular: Regular rate, Regular Rhythm, Normal S1, Normal S2, No murmurs Abdomen: Bowel Sounds Present, Soft, Non Tender, Non-Distended. No palpable mass. : No renal angle tenderness. No suprapubic tenderness. Extremities: No edema, Capillary Refill Less than 3 Seconds Skin: No rashes, No breakdown Musculoskeletal: No Tenderness to Palpation of Joints or Extremities. Missing finger on left hand. Neurological: Cranial nerves II-XII grossly intact, DTR 2+/4. No acute focal neurological deficit. Psych/Mental Status: Flat affect. Assessment & Plan Assessment/Plan (1) Metabolic encephalopathy: (2) C. difficile colitis: (3) Weakness: (4) Abdominal pain: QUALIFIERS: Abdominal location: generalized Qualified Code(s): R10.84 - Generalized abdominal pain (5) Diarrhea: QUALIFIERS: Diarrhea type: presumed infectious Qualified Code(s): R19.7 - Diarrhea, unspecified (6) Duodenal mass: PLAN: Plan C. difficile infection/diarrhea -C. 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 On oral vancomycin and IV Flagyl. Abdominal pain is diarrhea is better. Clinical monitoring for abdominal pain and stool frequency and consistency. 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 Biopsies still pending. IV PPI. On Reglan and scopolamine patch. Carafate. Severe malnutrition -Add Ensure supplementation -Dietary consult pending Mild cognitive impairment: Patient had acute confusion. MRI with IV contrast was ordered. Not reported. Failure to thrive/debility -Anticipate multifactorial -Patient was seen by PT and OT at last hospitalization she did well enough to go home we will hold off on consultation for now unless she is here for next period of time -Case management and social work consultation to assist with discharge planning -Suspect patient at the very least will need home health at discharge however may need placement depending on functional status Acute anemia: Gradual decrease in hemoglobin from 10.6-9.0. -Baseline hemoglobin prior to June was 12-14 -Patient is fully anticoagulated for history of DVT/PE--> will continue for now given the extensiveness of her PE but if her hemoglobin drops we will need to discontinue -Patient was diagnosed with an occlusive thrombus on 07/05/2023 PE/DVT -Patient was diagnosed with occlusive thrombus in the left pulmonary artery with nonocclusive clot in the distal peripheral branches of the right pulmonary artery with moderate thrombus in the mid and distal half of the left main pulmonary artery with no saddle embolus on 07/05/2023 If patient could not continue Eliquis will need evaluation for IVC filter. Metastatic melanoma -Had been maintained on immunotherapy however recent issues with immunotherapy related colitis -Patient had severe diarrhea that required high-dose steroids--> steroids are being weaned -Follows with Dr. Palma--> patient had been responding well to therapy however had significant side effects and plan is to restage -Upcoming PET scan -Recommend ongoing outpatient follow-up--> follows with Dr. Palma Hypertension -At goal -Continue home medications with lisinopril and metoprolol -As needed IV hydralazine is available -May need to consider IV replacement if p.o. intake remains problematic Hyperlipidemia -Continue home statin Immunotherapy related colitis -Continue low-dose steroid--> currently on 5 mg daily -Outpatient follow-up with Dr. Palma Adrenal insufficiency -Continue prednisone therapy History of GERD -Continue PPI and Carafate if patient tolerates History of cerebellar stroke -Continue risk factor modification History of epilepsy -Patient follows as an outpatient with Dr. Hughes -Does not take any antiepileptic medication -Monitor History of tobacco abuse -Remote DVT prophylaxis -Currently fully anticoagulated for recent PE CODE STATUS -Full code is verified on admission Charges/Coding Visit Charges Inpatient E&M: 09472 Subs Hosp L2
[2023-09-03] MEDS: 0.9% Saline Lock 10 ML Syringe IV (12:13)
--- NOTE | 2023-09-03 14:55 | PN.GI_ITS ---
Subjective Subjective Patient says that the diarrhea is slightly better today. She still is getting nauseated and is still have some intermittent abdominal pain. She denies any chest pain or shortness of breath. She continues to be afebrile. Objective Data Objective Data Vital Signs: Vital Signs Temp Pulse Resp BP Pulse Ox O2 Del Method 99 F 99 18 118/59 L 96 Room Air 09/03/23 09:39 09/03/23 09:46 09/03/23 09:39 09/03/23 09:39 09/03/23 09:39 09/03/23 09:42 Oxygen Delivery Method Room Air Weight: 151 lb 7.321 oz Body Mass Index (BMI) 24.4 Intake & Output: Intake and Output for Last 24 Hours 09/01/23 09/02/23 09/03/23 23:59 23:59 23:59 Intake Total 1611954 2363.75 / 2363.75 Balance 1611954 2363.75 / 2363.75 Medical Nutrition Assessment Dietitian: Malnutrition Criteria Met Start: 09/02/23 12:55 Freq: Status: Active Protocol: Document 09/02/23 12:56 SLA (Rec: 09/02/23 12:56 SLA Desktop) Nutrition Malnutrition Evidence of Malnutrition Exists Yes Malnutrition (severe): Chronic Evidenced By Suboptimal Energy Intake ( Severe),Weight Loss (Severe) Clinical Problem Chronic Disease or Condition Related Malnutrition Etiology related to GI dysfunction and inadequate energy intake Signs/Symptoms as evidenced by <75% po intake x > 1 month and 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 Recommendation Dietitian Recommendations/Changes As medically able, rec SHELBIE to liberal Regular Continue 4 oz ensure plus high protein 4x/day w/ medpass Lab / Micro Data 09/03/23 06:25 09/03/23 06:25 Labs: Laboratory Results - last 24 hr 09/02/23 15:11: Troponin I High Sens 7 09/03/23 06:25: WBC 6.6, RBC 3.01 L, Hgb 9.0 L, Hct 27.9 L, MCV 92.7, MCH 29.9, MCHC 32.3, RDW Std Deviation 56.5 H, RDW Coeff of [place] 16.4 H, Plt Count 261, MPV 9.2, Immature Gran % (Auto) 0.500, Neut % (Auto) 64.0, Lymph % (Auto) 23.3, [place] % (Auto) 11.4 H, Eos % (Auto) 0.5, Baso % (Auto) 0.3, Absolute Neuts (auto) 4.2, Absolute Lymphs (auto) 1.53, Nucleated RBC % 0, Sodium 137, Potassium 3.6, Chloride 107, Carbon Dioxide 25.0, Anion Gap 5, BUN 11, Creatinine 0.54 L, Estim Creat Clear Calc 44.80, Est GFR (MDRD) Af Amer 141, Est GFR (MDRD) Non-Af 117, BUN/Creatinine Ratio 20.4 H, Glucose 87, Calcium 7.8 L, Phosphorus 2.4 L, Magnesium 1.8 Micro: Microbiology 09/01/23 23:00 Stool Stool Lactoferrin - Final 09/01/23 23:00 Stool Enteric Bacteriology - Final 09/01/23 23:00 Stool C. difficile GDH Antigen & Toxins - Final 09/01/23 23:00 Stool Clostridioides difficile (PCR) - Final 09/01/23 16:26 Stool Stool Occult Blood (MARQUES) - Final Occult Blood Positive Physical Exam Narrative Patient states she is feeling so much better. Tolerating full liquid diet without any pain or nausea. Less pain with palpation of her upper abdomen. Const alert, oriented x3, no apparent distress and average body habitus; Negative for healthy appearing or well nourished Constitutional Narrative: Older, white female, sitting up in bed, patient appears well today, nontoxic, at bedside General Appearance: cooperative, comfortable, well kempt and well developed Orientation / Consciousness: awake, oriented to person, oriented to place and oriented to time Exam Limitations: no limitations HEENT normocephalic, head/scalp atraumatic and moist oral mucous membranes HEENT Narrative: Mallampati 2, no thrush Eyes PERRL and conjunctivae normal Eyes Narrative: No scleral icterus Neck supple Neck Narrative: Trachea midline Resp normal respiratory effort, no retractions, no use of accessory muscles and clear to auscultation bilaterally Auscultation: Negative for rales, rhonchi or wheezes Cardio regular rate, regular rhythm, S1 normal heart sound, S2 normal heart sound, no murmurs, no rub, no gallops and no clicks GI normal to inspection, nondistended, normoactive bowel sounds and soft to palpation GI Narrative: No pain with palpation to the upper abdomen/epigastric area and no resultant nausea with palpation Extremity no clubbing, cyanosis or edema Extremity Narrative: Pedal pulses are 2+ Skin no rashes or lesions noted, no wounds and no jaundice Neuro oriented x3, moves all extremities and no focal motor deficits Speech: speech normal Psych affect normal Psych Narrative: Eye contact is good, patient interacts appropriately and normally Assessment & Plan Assessment/Plan (1) Metabolic encephalopathy: (2) C. difficile colitis: (3) Weakness: (4) Abdominal pain: QUALIFIERS: Abdominal location: generalized Qualified Code(s): R10.84 - Generalized abdominal pain (5) Diarrhea: QUALIFIERS: Diarrhea type: presumed infectious Qualified Code(s): R19.7 - Diarrhea, unspecified (6) Duodenal mass: PLAN: Plan Diarrhea -C. difficile is positive -Continue IV Flagyl and add oral vancomycin given her history of imm unosuppression -Transition to oral vancomycin at discharge for total treatment day of 14 days--> day 1 of 14 -Isolation for C. difficile -Monitor stools -IV fluid is p.o. intake has been poor logy consulted for Hemoccult positive stools however she has had Hemoccult positive stools due to history of colitis -She also was found to have C. difficile and I think at this point we will probably just monitor her hemoglobin closely -EGD performed and showed duodenal mass with biopsies taken -Biopsies are still pending for pathology results -Continue IV PPI for now and switch to famotidine as an outpatient to decrease risk of C. difficile recurrent -Will continue Reglan but make IV while she is hospitalized -Continue scopolamine patch -Continue Carafate if able to tolerate p.o. Acute anemia -Hemoglobin has been trending down since mid June when she was started on Eliquis for PE -Baseline hemoglobin prior to June was 12-14 -Hemoglobin was 10.6 on admission however she looked a little bit dehydrated but stable on repeat -Concern for some GI loss -Patient is fully anticoagulated for history of DVT/PE--> will continue for now given the extensiveness of her PE but if her hemoglobin drops we will need to discontinue -Patient was diagnosed with an occlusive thrombus on 07/05/2023 -May need to consider IVC filter but her bleeding has stopped for now as I think she developed some episodes of ischemic colitis associated with acute C. difficile infection 09/03/23-her hemoglobin has trended down to 9. I will order repeat hemoglobin later on this evening. 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 I believe we will be able to remove it without having to do a submucosal dissection. Charges/Coding Visit Charges Inpatient E&M: 44360 Subs Hosp L3
[2023-09-03 15:43] VITALS: BP 114/68; PULSE 76; RESP 18; TEMP 36.9; O2SAT 98
[2023-09-03 15:50] LABS: Hematocrit 27.1 % (37-47); Hemoglobin 8.8 g/dL (12.0-15.0)
--- NOTE | 2023-09-03 16:19 | CASEMGMT ---
Index: 08/26/23-08/29/23. Dx: Chronic epigastric abdominal pain, nausea, FTT Readmission: 09/02/23. Dx: Worsening abdominal pain with diarrhea Pt with a history of hypertension, hyperlipidemia, seizures, DVT, BL PE, myeloma, adrenal insufficiency, polyneuropathy, chronic anemia, COVID-19, prior history of tobacco abuse, severe colitis, and metastatic melanoma to lymph nodes, was admitted on the above noted dates for the corresponding dx?s. Pt received a EGD that showed a small tumor that was biopsied and still pending at this time. Pt nausea did go away and pt was stable enough to DC from this hospital. Face to face assessment with pt and pt at this time. Pt was to follow up with Dr. Palma on 09/06/23. Pt was to make an appt with Dr. Antonio within 2 weeks of DC. Pt states the appt was for 09/04/23. Pt was also advised to see her PCP within 2 weeks of DC. Pt states the appt was for next 09/11/23. Pt was prescribed Reglan and Protonix after DC. Pt and pt state pt was compliant with these medications. The pt was advised to eat a full liquid diet x 24 hours after DC then advanced to a soft diet as tolerated. Pt and pt state that pt was compliant with her diet order. On readmission, pt came to the ER via EMS. Pt was using the toilet and became diaphoretic, pale, dizzy, nauseous, and confused. The pt was able to help her off the toilet and actived EMS. Pt did test positive for C. Diff. Pt biopsy is still pending. Pt is to be seen by PT and OT during stay here. Pt is on vanc for C Diff. Will follow for any needs. Pt plans to DC home with her pending progression in the hospital. Pt is active with [facility] PT [facility] SN.
[2023-09-03 21:22] VITALS: BP 114/62; PULSE 73; RESP 16; TEMP 36.7; O2SAT 99
[2023-09-03] MEDS: Atorvastatin Calcium 40 MG Tablet PO (21:26)
[2023-09-03] MEDS: Ondansetron 8 MG Tablet PO (21:26)
[2023-09-04] MEDS: Metoclopramide 10 MG/2 ML Vial 5 MG IV ×4 (05:41→23:53)
[2023-09-04] MEDS: metroNIDAZOLE 500 MG/100 ML BAG 100 MG IV ×3 (05:41→23:49)
[2023-09-04] MEDS: Menthol/Lanolin/Calamine/Znox 113 GM Tube 1 APPLIC TOPICAL ×3 (05:41→23:52)
[2023-09-04] MEDS: Vancomycin 125 MG/5 ML Susp PO.SYRINGE PO ×3 (05:41→23:52)
[2023-09-04] MEDS: Sucralfate 1 GM Tablet PO ×2 (05:42→11:18)
[2023-09-04 05:54] VITALS: BP 134/71; PULSE 90; RESP 16; TEMP 37; O2SAT 98
[2023-09-04] MEDS: predniSONE 5 MG Tablet PO (09:06)
[2023-09-04] MEDS: Potassium Chloride Oral Tablet 20 MEQ PO (09:06)
[2023-09-04] MEDS: Pantoprazole Sodium 40 MG Tablet PO ×2 (09:06→23:51)
[2023-09-04] MEDS: APIXABAN 5 MG TABLET PO ×2 (09:06→23:52)
[2023-09-04] MEDS: Lisinopril 20 MG Tablet PO (09:06)
[2023-09-04 09:07] VITALS: PULSE 92
[2023-09-04] MEDS: Metoprolol(XL)Succ 50 MG Tablet PO (09:07)
[2023-09-04 09:09] VITALS: BP 120/73; PULSE 92; RESP 15; TEMP 37; O2SAT 99
[2023-09-04] MEDS: 0.9% Saline Lock 10 ML Syringe IV ×2 (11:19→17:01)
[2023-09-04] MEDS: 0.9% Normal Saline (1000mL) 1,000 ML 75 ML IV (11:22)
[2023-09-04 13:53] VITALS: BP 153/77; PULSE 86; RESP 16; TEMP 36.8; O2SAT 99
--- NOTE | 2023-09-04 14:46 | CASEMGMT ---
Social Work: SW met with pt to discuss advance directives. Pt confirms she has completed a living will and Health care POA naming her spouse. SW informed pt the documents are not on file at [facility] and requested they be provided for scanning into the EMR. was in room at the time. confirmed that he has a copy of their AD at home, and reported he will bring it in tomorrow. HERNANDEZ Freitas
[2023-09-04] MEDS: Ondansetron 8 MG Tablet PO (15:03)
--- NOTE | 2023-09-04 17:08 | PN.HOSP_ITS ---
Reason for Visit Reason for Visit: Diagnoses Enterocolitis due to Clostridium difficile, not specified as recurrent ( 4) Metabolic encephalopathy (09/02/23) Other diseases of stomach and duodenum (09/02/23) Generalized abdominal pain (09/02/23) Diarrhea, unspecified (09/02/23) Weakness (09/02/23) Objective Data Objective Data Vital Signs: Vital Signs Temp Pulse Resp BP Pulse Ox O2 Del Method 98.3 F 86 16 153/77 H 99 Room Air 09/04/23 13:53 09/04/23 13:53 09/04/23 13:53 09/04/23 13:53 09/04/23 13:53 09/04/23 13:53 Oxygen Delivery Method Room Air Weight: 151 lb 7.321 oz Body Mass Index (BMI) 24.4 Intake & Output: Intake and Output for Last 24 Hours 09/02/23 09/03/23 09/04/23 23:59 23:59 23:59 Intake Total 1615 / 5 2880.00 / 2880.00 1676.25 / 1676.25 Balance 1615 / 1955 2880.00 / 2880.00 1676.25 / 1676.25 Medical Nutrition Assessment Dietitian: Malnutrition Criteria Met Start: 09/02/23 12:55 Freq: Status: Active Protocol: Document 09/02/23 12:56 SLA (Rec: 09/02/23 12:56 SLA Desktop) Nutrition Malnutrition Evidence of Malnutrition Exists Yes Malnutrition (severe): Chronic Evidenced By Suboptimal Energy Intake ( Severe),Weight Loss (Severe) Clinical Problem Chronic Disease or Condition Related Malnutrition Etiology related to GI dysfunction and inadequate energy intake Signs/Symptoms as evidenced by <75% po intake x > 1 month and 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 difficile GDH Antigen & Toxins - Final 09/01/23 23:00 Stool Clostridioides difficile (PCR) - Final 09/01/23 16:26 Stool Stool Occult Blood (MARQUES) - Final Occult Blood Positive Radiography Diagnostic Testing: Radiology Impression Brain MRI 09/03/23 06:53 IMPRESSION: Stable changes of chronic microvascular ischemia. No evidence of intracranial metastasis. Electronically Signed: Jai Sexton MD at 17:30 EST Reading Location ID and State: [facility] / [place] Tel , Service support , Physical Exam Narrative Seen and examined. Patient does not have abdominal pain. Diarrhea is also better. She had only 1 bowel movement today in the morning and 2 yesterday. Gradually solidifying. Biopsy of the duodenal polyp discussed. It is adenoma. Abdominal pain is resolved. Physical exam General: Alert, Oriented x3, Cooperative HEENT: Atraumatic, PERRLA, EOMI, Normocephalic Oral: No Gingival or Mucosal Lesions/ Ulcerations Neck: Supple, No JVD, Negative Carotid Bruits Lungs: Air entry diminished in bilateral lung bases. No crepitation/rhonchi Cardiovascular: Regular rate, Regular Rhythm, Normal S1, Normal S2, No murmurs Abdomen: Bowel Sounds Present, Soft, Non Tender, Non-Distended. No palpable mass. : No renal angle tenderness. No suprapubic tenderness. Extremities: No edema, Capillary Refill Less than 3 Seconds Skin: No rashes, No breakdown Musculoskeletal: No Tenderness to Palpation of Joints or Extremities. Missing finger on left hand. Neurological: Cranial nerves II-XII grossly intact, DTR 2+/4. No acute focal neurological deficit. Psych/Mental Status: Flat affect. Assessment & Plan Assessment/Plan (1) Metabolic encephalopathy: (2) C. difficile colitis: (3) Weakness: (4) Abdominal pain: QUALIFIERS: Abdominal location: generalized Qualified Code(s): R10.84 - Generalized abdominal pain (5) Diarrhea: QUALIFIERS: Diarrhea type: presumed infectious Qualified Code(s): R19.7 - Diarrhea, unspecified (6) Duodenal mass: PLAN: Plan C. difficile infection/diarrhea -C. difficile is positive Air Hammer Stripper was consulted. On oral vancomycin and IV Flagyl. Abdominal pain is diarrhea is better. Clinical monitoring for abdominal pain and stool frequency and consistency. 09/04: Diarrhea is improving. Abdominal pain has resolved. Continue above medication. 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 Biopsies still pending. IV PPI. On Reglan and scopolamine patch. Carafate. 09/04: Duodenal mass biopsy shows fragments of adenomatous polyp. Discussed with the chronometer repairer. Plan for EGD polypectomy. Severe malnutrition -Add Ensure supplementation -Dietary consult pending Mild cognitive impairment: Patient had acute confusion. MRI with IV contrast was ordered. Not reported. Failure to thrive/debility -Anticipate multifactorial -Patient was seen by PT and OT at last hospitalization she did well enough to go home we will hold off on consultation for now unless she is here for next period of time -Case management and social work consultation to assist with discharge planning -Suspect patient at the very least will need home health at discharge however may need placement depending on functional status Acute anemia: Gradual decrease in hemoglobin from 10.6-9.0. -Baseline hemoglobin prior to June was 12-14 -Patient is fully anticoagulated for history of DVT/PE--> will continue for now given the extensiveness of her PE but if her hemoglobin drops we will need to discontinue -Patient was diagnosed with an occlusive thrombus on 07/05/2023 PE/DVT -Patient was diagnosed with occlusive thrombus in the left pulmonary artery with nonocclusive clot in the distal peripheral branches of the right pulmonary artery with moderate thrombus in the mid and distal half of the left main pulmonary artery with no saddle embolus on 07/05/2023 If patient could not continue Eliquis will need evaluation for IVC filter. Metastatic melanoma -Had been maintained on immunotherapy however recent issues with immunotherapy related colitis -Patient had severe diarrhea that required high-dose steroids--> steroids are being weaned -Follows with Dr. Palma--> patient had been responding well to therapy however had significant side effects and plan is to restage -Upcoming PET scan -Recommend ongoing outpatient follow-up--> follows with Dr. Palma Hypertension -At goal -Continue home medications with lisinopril and metoprolol -As needed IV hydralazine is available -May need to consider IV replacement if p.o. intake remains problematic Hyperlipidemia -Continue home statin Immunotherapy related colitis -Continue low-dose steroid--> currently on 5 mg daily -Outpatient follow-up with Dr. Palma Adrenal insufficiency -Continue prednisone therapy History of GERD -Continue PPI and Carafate if patient tolerates History of cerebellar stroke -Continue risk factor modification History of epilepsy -Patient follows as an outpatient with Dr. Hughes -Does not take any antiepileptic medication -Monitor History of tobacco abuse -Remote DVT prophylaxis -Currently fully anticoagulated for recent PE CODE STATUS -Full code is verified on admission Charges/Coding Visit Charges Inpatient E&M: 06673 Subs Hosp L2
[2023-09-04] MEDS: ALPRAZolam 0.25 MG Tablet PO (19:19)
[2023-09-04] MEDS: Scopolamine 1mg/72hr Patch 1 PATCH TD (19:19)
--- NOTE | 2023-09-04 21:18 | EX.PCM.PN.GI ---
Subjective Subjective Patient is very nauseated today. She rates her nausea at 7/10 wiht Reglan from 10/10 without Reglan. She is not having any abdominal pain. She thinks that she is loosing weight due to her inability to eat. Objective Data Objective Data Vital Signs: Vital Signs Temp Pulse Resp BP Pulse Ox O2 Del Method 98.3 F 86 16 153/77 H 99 Room Air 09/04/23 13:53 09/04/23 13:53 09/04/23 13:53 09/04/23 13:53 09/04/23 13:53 09/04/23 13:53 Oxygen Delivery Method Room Air Weight: 151 lb 7.321 oz Body Mass Index (BMI) 24.4 Intake & Output: Intake and Output for Last 24 Hours 09/02/23 09/03/23 09/04/23 23:59 23:59 23:59 Intake Total 1615 / 1955 2880.00 / 2880.00 1776.25 / 1776.25 Balance 1615 / 1955 2880.00 / 2880.00 1776.25 / 1776.25 Medical Nutrition Assessment Dietitian: Malnutrition Criteria Met Start: 09/02/23 12:55 Freq: Status: Active Protocol: Document 09/02/23 12:56 SLA (Rec: 09/02/23 12:56 SLA Desktop) Nutrition Malnutrition Evidence of Malnutrition Exists Yes Malnutrition (severe): Chronic Evidenced By Suboptimal Energy Intake ( Severe),Weight Loss (Severe) Clinical Problem Chronic Disease or Condition Related Malnutrition Etiology related to GI dysfunction and inadequate energy intake Signs/Symptoms as evidenced by <75% po intake x > 1 month and 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 difficile GDH Antigen & Toxins - Final 09/01/23 23:00 Stool Clostridioides difficile (PCR) - Final 09/01/23 16:26 Stool Stool Occult Blood (MARQUES) - Final Occult Blood Positive Physical Exam Narrative Seen and examined. Patient does not have abdominal pain. Diarrhea is also better. She had only 1 bowel movement today in the morning and 2 yesterday. Gradually solidifying. Biopsy of the duodenal polyp discussed. It is adenoma. Abdominal pain is resolved. Physical exam General: Alert, Oriented x3, Cooperative HEENT: Atraumatic, PERRLA, EOMI, Normocephalic Oral: No Gingival or Mucosal Lesions/ Ulcerations Neck: Supple, No JVD, Negative Carotid Bruits Lungs: Air entry diminished in bilateral lung bases. No crepitation/rhonchi Cardiovascular: Regular rate, Regular Rhythm, Normal S1, Normal S2, No murmurs Abdomen: Bowel Sounds Present, Soft, Non Tender, Non-Distended. No palpable mass. : No renal angle tenderness. No suprapubic tenderness. Extremities: No edema, Capillary Refill Less than 3 Seconds Skin: No rashes, No breakdown Musculoskeletal: No Tenderness to Palpation of Joints or Extremities. Missing finger on left hand. Neurological: Cranial nerves II-XII grossly intact, DTR 2+/4. No acute focal neurological deficit. Psych/Mental Status: Flat affect. Assessment & Plan Assessment/Plan (1) Metabolic encephalopathy: (2) C. difficile colitis: (3) Weakness: (4) Abdominal pain: QUALIFIERS: Abdominal location: generalized Qualified Code(s): R10.84 - Generalized abdominal pain (5) Diarrhea: QUALIFIERS: Diarrhea type: presumed infectious Qualified Code(s): R19.7 - Diarrhea, unspecified (6) Duodenal mass: PLAN: Plan Diarrhea -C. difficile is positive -Continue IV Flagyl and add oral vancomycin given her history of immunosuppression -Transition to oral vancomycin at discharge for total treatment day of 14 days--> day 1 of 14 -Isolation for C. difficile -Monitor stools -IV fluid is p.o. intake has been poor logy consulted for Hemoccult positive stools however she has had Hemoccult positive stools due to history of colitis -She also was found to have C. difficile and I think at this point we will probably just monitor her hemoglobin closely -EGD performed and showed duodenal mass with biopsies taken -Biopsies are still pending for pathology results -Continue IV PPI for now and switch to famotidine as an outpatient to decrease risk of C. difficile recurrent -Will continue Reglan but make IV while she is hospitalized -Continue scopolamine patch -Continue Carafate if able to tolerate p.o. Acute anemia -Hemoglobin has been trending down since mid June when she was started on Eliquis for PE -Baseline hemoglobin prior to June was 12-14 -Hemoglobin was 10.6 on admission however she looked a little bit dehydrated but stable on repeat -Concern for some GI loss -Patient is fully anticoagulated for history of DVT/PE--> will continue for now given the extensiveness of her PE but if her hemoglobin drops we will need to discontinue -Patient was diagnosed with an occlusive thrombus on 07/05/2023 -May need to consider IVC filter but her bleeding has stopped for now as I think she developed some episodes of ischemic colitis associated with acute C. difficile infection 09/03/23-her hemoglobin has trended down to 9. I will order repeat hemoglobin later on this evening. 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 I believe we will be able to remove it without having to do a submucosal dissection. 09/04/23- I put her on 0.25mg of Xanax TID and Scopolamine patch. If it works she should be transitioned to Olanzapine as it works very well for non chemotherapy induced nausea and vomiting. It works similiar to Haldol without the risk of extrapyradimal effects. Plan is for egd tomorrow. Charges/Coding Visit Charges Inpatient E&M: 47561 [facility] Hosp L3
[2023-09-04 22:50] VITALS: BP 145/68; PULSE 85; RESP 16; TEMP 37.1; O2SAT 97
[2023-09-04] MEDS: Atorvastatin Calcium 40 MG Tablet PO (23:51)
[2023-09-05] VITALS (20 sets, daily range): BP systolic 115–160; BP diastolic 50–78; PULSE 68–103; RESP 12–18; TEMP 36.1–37.4; O2SAT 89–100
[2023-09-05] MEDS: Sucralfate 1 GM Tablet PO ×3 (00:10→23:00)
[2023-09-05] MEDS: 0.9% Normal Saline (1000mL) 1,000 ML 75 ML IV ×2 (03:39→14:54)
[2023-09-05] MEDS: metroNIDAZOLE 500 MG/100 ML BAG 100 MG IV ×2 (05:37→22:59)
[2023-09-05] MEDS: Menthol/Lanolin/Calamine/Znox 113 GM Tube 1 APPLIC TOPICAL ×2 (05:37→23:03)
[2023-09-05] MEDS: Acetaminophen 500 MG Tablet 1000 MG PO (05:44)
[2023-09-05] MEDS: Vancomycin 125 MG/5 ML Susp PO.SYRINGE PO ×2 (05:45→23:00)
[2023-09-05] MEDS: Metoclopramide 10 MG/2 ML Vial 5 MG IV ×2 (05:45→23:01)
[2023-09-05 07:36] LABS: Absolute Lymphocyte Count 1.16 X10^3/uL (0.83-4.51); Absolute Neutrophil Count 2.2 X10^3/uL (2.0-7.7); Basophil# 0.02 X10^3/uL; Basophil% 0.5 % (0-1); Eosinophil# 0.03 X10^3/uL; Eosinophils% 0.8 % (0-5); Hematocrit 27.2 % (37-47); Hemoglobin 8.8 g/dL (12.0-15.0); Lymphocyte # 1.16 X10^3/ul (0.83-4.51); Lymphocyte % 29.4 % (19-41); Mean Corp Hgb Conc 32.4 g/dL (32-36); Mean Corpuscular Hgb 29.6 pg (27.0-32.0); Mean Corpuscular Volume 91.6 fL (81-99); Mean Platelet Vol. 8.9 fl (6.2-12.0); Monocyte# 0.54 X10^3/uL; Monocyte% 13.7 % (0-10); NRBC Flagged by Analyzer 0 % (0-5); Neutrophil # 2.18 X10^3/uL (2.7-7.7); Neutrophil % 55.1 % (47-70); Platelet Count 223 K/mm3 (150-450); RBC Distribution Width CV 15.7 % (11.6-14.6); RBC Distribution Width SD 52.7 fl (35.1-43.9); Red Blood Count 2.97 M/mm3 (4.2-5.4)
[2023-09-05 08:23] LABS: Anion Gap 5 (5-15); BUN 4 mg/dL (7-18); BUN/Creat Ratio 8.8 RATIO (10-20); Calcium,Total 7.6 mg/dL (8.5-10.1); Chloride 106 mmol/L (98-107); Creatinine, Serum 0.45 mg/dL (0.55-1.02); EST Glomerular Filtration Rate 143 mL/min (>60); Est Glom Filt Rate - Afr Amer 173 mL/min (>60); Estimated Creatinine Clearance 56.01 ml/min; Glucose 83 mg/dL (74-106); Potassium 3.2 mmol/L (3.5-5.1); Sodium Level 136 mmol/L (136-145)
[2023-09-05 09:04] LABS: Partial Thromboplast Time 53.8 Seconds (24.1-36.2)
[2023-09-05 09:09] LABS: International Normalized Ratio 1.9; Prothrombin Time (Protime)PT. 22.1 SECONDS (11.7-14.9)
[2023-09-05] MEDS: Metoprolol(XL)Succ 50 MG Tablet PO (09:16)
--- NOTE | 2023-09-05 10:39 | PCM.PN.HOSP ---
Reason for Visit Reason for Visit: Diagnoses Enterocolitis due to Clostridium difficile, not specified as recurrent (09/02/23) Metabolic encephalopathy (09/02/23) Other diseases of stomach and duodenum (09/02/23) Generalized abdominal pain (09/02/23) Diarrhea, unspecified (09/02/23) Weakness (09/02/23) Objective Data Objective Data Vital Signs: Vital Signs Temp Pulse Resp BP Pulse Ox O2 Del Method 97.8 F 78 16 115/65 94 Room Air 09/05/23 09:05 09/05/23 09:16 09/05/23 09:05 09/05/23 09:05 09/05/23 09:05 09/05/23 09:05 Oxygen Delivery Method Room Air Weight: 151 lb 7.321 oz Body Mass Index (BMI) 24.4 Intake & Output: Intake and Output for Last 24 Hours 09/03/23 09/04/23 09/05/23 23:59 23:59 23:59 Intake Total 2880.00 / 2880.00 1776.25 / 1776.25 1031.25 / 1031.25 Output Total 500 / 500 Balance 2880.00 / 2880.00 1776.25 / 1776.25 531.25 / 531.25 Medical Nutrition Assessment Dietitian: Malnutrition Criteria Met Start: 09/02/23 12:55 Freq: Status: Active Protocol: Document 09/02/23 12:56 SLA (Rec: 09/02/23 12:56 SLA Desktop) Nutrition Malnutrition Evidence of Malnutrition Exists Yes Malnutrition (severe): Chronic Evidenced By Suboptimal Energy Intake ( Severe),Weight Loss (Severe) Clinical Problem Chronic Disease or Condition Related Malnutrition Etiology related to GI dysfunction and inadequate energy intake Signs/Symptoms as evidenced by <75% po intake x > 1 month and 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 Problem Recommendation Dietitian Recommendations/Changes As medically able, rec SHELBIE to liberal Regular Continue 4 oz ensure plus high protein 4x/day w/ medpass Lab / Micro Data 09/05/23 07:09 09/05/23 07:09 Labs: Laboratory Results - last 24 hr 09/05/23 07:09: WBC 4.0 L, RBC 2.97 L, Hgb 8.8 L, Hct 27.2 L, MCV 91.6, MCH 29.6, MCHC 32.4, RDW Std Deviation 52.7 H, RDW Coeff of Lynn 15.7 H, Plt Count 223, MPV 8.9, Immature Gran % (Auto) 0.500, Neut % (Auto) 55.1, Lymph % (Auto) 29.4, Desha % (Auto) 13.7 H, Eos % (Auto) 0.8, Baso % (Auto) 0.5, Absolute Neuts (auto) 2.2, Absolute Lymphs (auto) 1.16, Nucleated RBC % 0, PT 22.1 H, INR 1.9, APTT 53.8 H, Sodium 136, Potassium 3.2 L, Chloride 106, Carbon Dioxide 25.0, Anion Gap 5, BUN 4 L, Creatinine 0.45 L, Estim Creat Clear Calc 56.01, Est GFR (MDRD) Af Amer 173, Est GFR (MDRD) Non-Af 143, BUN/Creatinine Ratio 8.8 L, Glucose 83, Calcium 7.6 L Micro: Microbiology 09/01/23 23:00 Stool Stool Lactoferrin - Final 09/01/23 23:00 Stool Enteric Bacteriology - Final 09/01/23 23:00 Stool C. difficile GDH Antigen & Toxins - Final 09/01/23 23:00 Stool Clostridioides difficile (PCR) - Final 09/01/23 16:26 Stool Stool Occult Blood (MARQUES) - Final Occult Blood Positive Physical Exam Narrative Seen and examined. Patient does not have abdominal pain. Diarrhea is also better she did not had bowel movement today, had 1 bowel movement yesterday and 2 before that. Gradually solidifying. Biopsy of the duodenal polyp discussed and scheduled for EGD today. It is adenoma. Abdominal pain is resolved. Also discussed the indications side effect and adverse effect of IVC filter with patient and her near the bedside. Shanti is on hold Physical exam General: Alert, Oriented x3, Cooperative HEENT: Atraumatic, PERRLA, EOMI, Normocephalic Oral: No Gingival or Mucosal Lesions/ Ulcerations Neck: Supple, No JVD, Negative Carotid Bruits Lungs: Air entry diminished in bilateral lung bases. No crepitation/rhonchi Cardiovascular: Regular rate, Regular Rhythm, Normal S1, Normal S2, No murmurs Abdomen: Bowel Sounds Present, Soft, Non Tender, Non-Distended. No palpable mass. : No renal angle tenderness. No suprapubic tenderness. Extremities: No edema, Capillary Refill Less than 3 Seconds Skin: No rashes, No breakdown Musculoskeletal: No Tenderness to Palpation of Joints or Extremities. Missing finger on left hand. Neurological: Cranial nerves II-XII grossly intact, DTR 2+/4. No acute focal neurological deficit. Psych/Mental Status: Flat affect. Assessment & Plan Assessment/Plan (1) Metabolic encephalopathy: (2) C. difficile colitis: (3) Weakness: (4) Abdominal pain: QUALIFIERS: Abdominal location: generalized Qualified Code(s): R10.84 - Generalized abdominal pain (5) Diarrhea: QUALIFIERS: Diarrhea type: presumed infectious Qualified Code(s): R19.7 - Diarrhea, unspecified (6) Duodenal mass: PLAN: Plan C. difficile infection/diarrhea -C. difficile is positive Interventional Nurse was consulted. On oral vancomycin and IV Flagyl. Abdominal pain is diarrhea is better. Clinical monitoring for abdominal pain and stool frequency and consistency. 09/04: Diarrhea is improving. Abdominal pain has resolved. Continue above medication. 09/05: Diarrhea has stopped. Continue medication. Will probably discontinue IV Flagyl from tomorrow. 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 Biopsies still pending. IV PPI. On Reglan and scopolamine patch. Carafate. 09/04: Duodenal mass biopsy shows fragments of adenomatous polyp. Discussed with the assistant grocery store manager. Plan for EGD polypectomy. 09/05: Eliquis on hold. Discussed with Dr. Antonio for polypectomy. Severe malnutrition -Add Ensure supplementation -Dietary consult pending Mild cognitive impairment: Patient had acute confusion. MRI with IV contrast was ordered. Not reported. Failure to thrive/debility -Anticipate multifactorial -Patient was seen by PT and OT at last hospitalization she did well enough to go home we will hold off on consultation for now unless she is here for next period of time -Case management and social work consultation to assist with discharge planning -Suspect patient at the very least will need home health at discharge however may need placement depending on functional status Acute anemia: Gradual decrease in hemoglobin from 10.6-9.0. -Baseline hemoglobin prior to June was 12-14 -Patient is fully anticoagulated for history of DVT/PE--> will continue for now given the extensiveness of her PE but if her hemoglobin drops we will need to discontinue -Patient was diagnosed with an occlusive thrombus on 07/05/2023 PE/DVT -Patient was diagnosed with occlusive thrombus in the left pulmonary artery with nonocclusive clot in the distal peripheral branches of the right pulmonary artery with moderate thrombus in the mid and distal half of the left main pulmonary artery with no saddle embolus on 07/05/2023 If patient could not continue Eliquis will need evaluation for IVC filter. 09/05: Discussed with vascular surgeon Dr. Sanjeev Ceja and agreed for IVC filter. Discussed with the patient that will be second line defense as patient had GI bleed on Eliquis and will be holding Eliquis for few days for polypectomy. Will try that she cannot tolerate Eliquis. Metastatic melanoma -Had been maintained on immunotherapy however recent issues with immunotherapy related colitis -Patient had severe diarrhea that required high-dose steroids--> steroids are being weaned -Follows with Dr. Palma--> patient had been responding well to therapy however had significant side effects and plan is to restage -Upcoming PET scan -Recommend ongoing outpatient follow-up--> follows with Dr. Palma Hypertension -At goal -Continue home medications with lisinopril and metoprolol -As needed IV hydralazine is available -May need to consider IV replacement if p.o. intake remains problematic Hyperlipidemia -Continue home statin Immunotherapy related colitis -Continue low-dose steroid--> currently on 5 mg daily -Outpatient follow-up with Dr. Palma Adrenal insufficiency -Continue prednisone therapy History of GERD -Continue PPI and Carafate if patient tolerates History of cerebellar stroke -Continue risk factor modification History of epilepsy -Patient follows as an outpatient with Dr. Hughes -Does not take any antiepileptic medication -Monitor History of tobacco abuse -Remote DVT prophylaxis -Currently fully anticoagulated for recent PE CODE STATUS -Full code is verified on admission Charges/Coding Visit Charges Inpatient E&M: 37731 Subs Hosp L2
--- NOTE | 2023-09-05 12:25 | EGD_PTH ---
PATHOLOGY RESULTS PATIENT: MISTI HUERTA LOC: MS3 U#:[id number] AGE/SX: 78/F ROOM: MS311 RE09/02/[address]: Dr. Naseem Rios MD : 1945 BED: 1 DIS: 09/07/2023 SPEC #: [id number] RECD: 09/05/23 18:19 STATUS: JOSE RAMON RESaul #: [id number] MAYA: 09/05/23 12:[address]: Jason Antonio DEPT: SURGICAL PATHOLOGY RECD BY: Shakiar Olsen ENTERED: 09/06/23 07:06 SP TYPE: EGD BIOPSY OTHR DR: DO Dr. Black Cardona MD Dr. Eric Turney, MD Dr. Kathryn Lee, DO Dr. Prakash Chand, MD Dr. Rahsaan Friend, DO Dr. Stephen Cullen, MD Tissues: Duodenum, NOS Procedures: Surgery Specimen Level IV Comments: @ Ordering doctor for SUIV edited from to @ by BRIGIDO at 09/06/23 1406 @ Submitting doctor edited from to @ by BRIGIDO at 09/06/23 1406 HEADER OPERATION: EGD with epinephrine and polypectomy PRE-OP DIAGNOSIS: Metabolic encephalopathy, C. difficile colitis, weakness, abdominal pain, diarrhea TISSUE SUBMITTED: Duodenal mass MICROSCOPIC DIAGNOSIS Duodenal mass, biopsy: Fragments of tubular adenoma. Note: There is no evidence of high-grade dysplasia. AM:jesús 09/07/2023 COMMENT Case has been reviewed in consultation with Dr. Thayer who concurs with the above diagnosis. IDC:[email or web address] MICROSCOPIC DESCRIPTION Slides are reviewed. GROSS DESCRIPTION Received in fixative is one container labeled with the patient's name and designated duodenal mass. The specimen consists of multiple polypoid fragments of pink soft tissue that in aggregate measure 5.0 x 3.0 x 0.3 cm. The largest piece is bisected and measures 2.0 cm in greatest dimension. The entire specimen is submitted in two cassettes. / STEPHANY:jesús 09/06/2023 TC:1 CPT: 35731
[2023-09-05] MEDS: 0.9% Normal Saline (Pres. free 10 ML Vial ×2 (13:01→13:31)
[2023-09-05] MEDS: Epinephrine (1 mg/ml) 1 MG/ML VIAL ×2 (13:01→13:31)
--- NOTE | 2023-09-05 16:15 | PN.GI_ITS ---
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 She told me that she became very disoriented from scopolamine patch and 0.25 mg of Xanax that was given to her for nausea. She is feeling a little bit better but still is very sleepy. Objective Data Objective Data Vital Signs: Vital Signs Temp Pulse Resp BP Pulse Ox O2 Del Method O2 Flow Rate 98.0 F 78 16 151/75 H 94 Room Air 2 09/05/23 16:09/05/23 16:09/05/23 16:09/05/23 16:09/05/23 16:09/05/23 16:09/05/23 15:48 Oxygen Flow Rate (L/min) 2 Oxygen Delivery Method Room Air Weight: 151 lb 7.321 oz Body Mass Index (BMI) 24.4 Intake & Output: Intake and Output for Last 24 Hours 09/03/23 09/04/23 09/05/23 23:59 23:59 23:59 Intake Total 2880.00 / 2880.00 1776.25 / 1776.25 2031.25 / 2031.25 Output Total 500 / 500 Balance 2880.00 / 2880.00 1776.25 / 1776.25 1531.25 / 1531.25 Medical Nutrition Assessment Dietitian: Malnutrition Criteria Met Start: 09/02/23 12:55 Freq: Status: Active Protocol: Document 09/05/23 12:26 [facility] (Rec: 09/05/23 12:26 [facility] Desktop) Nutrition Malnutrition Evidence of Malnutrition Exists Yes Malnutrition (severe): Chronic Evidenced By Suboptimal Energy Intake ( Severe),Weight Loss (Severe) Clinical Problem Chronic Disease or Condition Related Malnutrition Etiology related to GI dysfunction and inadequate energy intake Signs/Symptoms as evidenced by <75% po intake x > 1 month and 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 Lab / Micro Data 09/05/23 07:09 09/05/23 07:09 Labs: Laboratory Results - last 24 hr 09/05/23 07:09: WBC 4.0 L, RBC 2.97 L, Hgb 8.8 L, Hct 27.2 L, MCV 91.6, MCH 29.6, MCHC 32.4, RDW Std Deviation 52.7 H, RDW Coeff of Lynn 15.7 H, Plt Count 223, MPV 8.9, Immature Gran % (Auto) 0.500, Neut % (Auto) 55.1, Lymph % (Auto) 29.4, [place] % (Auto) 13.7 H, Eos % (Auto) 0.8, Baso % (Auto) 0.5, Absolute Neuts (auto) 2.2, Absolute Lymphs (auto) 1.16, Nucleated RBC % 0, PT 22.1 H, INR 1.9, APTT 53.8 H, Sodium 136, Potassium 3.2 L, Chloride 106, Carbon Dioxide 25.0, Anion Gap 5, BUN 4 L, Creatinine 0.45 L, Estim Creat Clear Calc 56.01, Est GFR ( MDRD) Af Amer 173, Est GFR (MDRD) Non-Af 143, BUN/Creatinine Ratio 8.8 L, Glu cose 83, Calcium 7.6 L Micro: Microbiology 09/01/23 23:00 Stool Stool Lactoferrin - Final 09/01/23 23:00 Stool Enteric Bacteriology - Final 09/01/23 23:00 Stool C. difficile GDH Antigen & Toxins - Final 09/01/23 23:00 Stool Clostridioides difficile (PCR) - Final 09/01/23 16:26 Stool Stool Occult Blood (MARQUES) - Final Occult Blood Positive Physical Exam Narrative Seen and examined. Patient does not have abdominal pain. Diarrhea is also better. Physical exam General: Alert, Oriented x3, Cooperative HEENT: Atraumatic, PERRLA, EOMI, Normocephalic Oral: No Gingival or Mucosal Lesions/ Ulcerations Neck: Supple, No JVD, Negative Carotid Bruits Lungs: Air entry diminished in bilateral lung bases. No crepitation/rhonchi Cardiovascular: Regular rate, Regular Rhythm, Normal S1, Normal S2, No murmurs Abdomen: Bowel Sounds Present, Soft, Non Tender, Non-Distended. No palpable mas s. : No renal angle tenderness. No suprapubic tenderness. Extremities: No edema, Capillary Refill Less than 3 Seconds Skin: No rashes, No breakdown Musculoskeletal: No Tenderness to Palpation of Joints or Extremities. Missing finger on left hand. Neurological: Cranial nerves II-XII grossly intact, DTR 2+/4. No acute focal neurological deficit. Psych/Mental Status: Flat affect. Assessment & Plan Assessment/Plan (1) Metabolic encephalopathy: (2) C. difficile colitis: (3) Weakness: (4) Abdominal pain: QUALIFIERS: Abdominal location: generalized Qualified Code(s): R10.84 - Generalized abdominal pain (5) Diarrhea: QUALIFIERS: Diarrhea type: presumed infectious Qualified Code(s): R19.7 - Diarrhea, unspecified (6) Duodenal mass: PLAN: Plan Diarrhea -C. difficile is positive -Continue IV Flagyl and add oral vancomycin given her history of immunosuppression -Transition to oral vancomycin at discharge for total treatment day of 14 days--> day 1 of 14 -Isolation for C. difficile -Monitor stools -IV fluid is p.o. intake has been poor logy consulted for Hemoccult positive stools however she has had Hemoccult positive stools due to history of colitis -She also was found to have C. difficile and I think at this point we will probably just monitor her hemoglobin closely -EGD performed and showed duodenal mass with biopsies taken -Biopsies are still pending for pathology results -Continue IV PPI for now and switch to famotidine as an outpatient to decrease risk of C. difficile recurrent -Will continue Reglan but make IV while she is hospitalized -Continue scopolamine patch -Continue Carafate if able to tolerate p.o. Acute anemia -Hemoglobin has been trending down since mid June when she was started on Eliquis for PE -Baseline hemoglobin prior to June was 12-14 -Hemoglobin was 10.6 on admission however she looked a little bit dehydrated but stable on repeat -Concern for some GI loss -Patient is fully anticoagulated for history of DVT/PE--> will continue for now given the extensiveness of her PE but if her hemoglobin drops we will need to d iscontinue -Patient was diagnosed with an occlusive thrombus on 07/05/2023 -May need to consider IVC filter but her bleeding has stopped for now as I think she developed some episodes of ischemic colitis associated with acute C. difficile infection 09/03/23-her hemoglobin has trended down to 9. I will order repeat hemoglobin later on this evening. 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 I believe we will be able to remove it without having to do a submucosal dissection. 09/04/23- I put her on 0.25mg of Xanax TID and Scopolamine patch. If it works she should be transitioned to Olanzapine as it works very well for non chemotherapy induced nausea and vomiting. It works similiar to Haldol without the risk of extrapyradimal effects. -I will stop her Xanax and continue scopolamine patch. I still think she would benefit from olanzapine but I would like to make sure she has benzodiazepines out of her system. This can be started as an outpatient. Charges/Coding Visit Charges Inpatient E&M: 81958 Subs Hosp L3
--- NOTE | 2023-09-05 16:22 | OP.CCLET_ITS ---
09/05/2023 Marvin Malloy Md Re : Upper GI endoscopy procedure for Shikha Terry Dear Gama This procedure was performed on Tuesday, September 05, 2023. My impressions and recommendations are as follows: Impressions : - Normal esophagus. - Normal stomach. - Likely benign duodenal mass. Complete removal was accomplished. Injected. Clip was placed. 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 - Mucosal resection was performed. Resection and retrieval were complete. Recommendations : - [facility]. - Resume previous diet. - Continue present medications. - Await pathology results. - Repeat upper endoscopy in 6 weeks for surveillance. My findings are described in the full procedure note, which is enclosed. If I can be of further assistance, please feel free to contact me at . Sincerely, Jason Friend, 09/05/2023 4:21:45 PM This report has been signed electronically.
--- NOTE | 2023-09-05 16:22 | OP.EGD_ITS ---
Patient Name: Shikha Terry Procedure Date: 09/05/2023 12:37 PM Date of : 1945 Age: 78 Procedure: Upper GI endoscopy Indications: Epigastric abdominal pain Providers: Jason Antonio DO Medicines: Monitored Anesthesia Care Patient Profile: This is a 78 year old female. Refer to note in patient chart for documentation of history and physical. Patient has symptoms of chronic epigastric abdominal pain. Complications: No immediate complications. Procedure: Pre-Anesthesia Assessment: - Prior to the procedure, a History and Physical was performed, and patient medications and allergies were reviewed. The patient is competent. The risks and benefits of the procedure and the sedation options and risks were discussed with the patient. All questions were answered and informed consent was obtained. Patient identification and proposed procedure were verified by the physician. Mental Status Examination: normal. Prophylactic Antibiotics: The patient does not require prophylactic antibiotics. Prior Anticoagulants: The patient has taken no anticoagulant or antiplatelet agents except for NSAID medication. ASA Grade Assessment: III - A patient with severe systemic disease. After reviewing the risks and benefits, the patient was deemed in satisfactory condition to undergo the procedure. The anesthesia plan was to use monitored anesthesia care (MAC). Immediately prior to administration of medications, the patient was re-assessed for adequacy to receive sedatives. The heart rate, respiratory rate, oxygen saturations, blood pressure, adequacy of pulmonary ventilation, and response to care were monitored throughout the procedure. The physical status of the patient was re-assessed after the procedure. After obtaining informed consent, the endoscope was passed under direct vision. Throughout the procedure, the patient's blood pressure, pulse, and oxygen saturations were monitored continuously. The gastroscope was introduced through the mouth, and advanced to the second part of duodenum. The upper GI endoscopy was accomplished without difficulty. The patient tolerated the procedure well. Scope In: 1:06:54 PM Scope Out: 1:48:32 PM Total Procedure Duration Time 0 hours 41 minutes 38 seconds Findings: The examined esophagus was normal. The entire examined stomach was normal. A large frond-like/villous mass with bleeding was found in the duodenal bulb. Area was successfully injected with 9 mL of a 0.1 mg/mL solution of epinephrine for a lift polypectomy. Preparations were made for mucosal resection. Chromoscopy with Vashti ink was done. Demarcation of the lesion was performed with thermal marking to clearly identify the boundaries of the lesion. A 0.1 mg/mL solution of epinephrine was injected to raise the lesion. Snare mucosal resection was performed. Resection and retrieval were complete. Resected tissue including tissue margins will be examined by histology. For location marking, one hemostatic clip was successfully placed. 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 There was no bleeding at the end of the procedure. Impression: - Normal esophagus. - Normal stomach. - Likely benign duodenal mass. Complete removal was accomplished. Injected. Clip was placed. 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 - Mucosal resection was performed. Resection and retrieval were complete. Recommendation: - [facility]. - Resume previous diet. - Continue present medications. - Await pathology results. - Repeat upper endoscopy in 6 weeks for surveillance. Procedure Code(s): --- Professional --- 30931, Esophagogastroduodenoscopy, flexible, transoral; with endoscopic mucosal resection 33553, Unlisted procedure, small intestine CPT copyright 2021 [employer]. All rights reserved. The codes documented in this report are preliminary and upon angle furnaceman review may be revised to meet current compliance requirements. Jason Antonio DO 09/05/2023 4:21:45 PM This report has been signed electronically. Number of Addenda: 0 Note Initiated On: 09/05/2023 12:37 PM
[2023-09-05] MEDS: Pantoprazole Sodium 40 MG Tablet PO (23:00)
[2023-09-05] MEDS: Atorvastatin Calcium 40 MG Tablet PO (23:01)
[2023-09-05] MEDS: Lisinopril 20 MG Tablet PO (23:01)
[2023-09-05] MEDS: Potassium Chloride Oral Tablet 20 MEQ 40 MEQ PO (23:02)
[2023-09-05] MEDS: Ensure Plus High Protein 120 ML LIQUID PO (23:03)
[2023-09-06] MEDS: predniSONE 5 MG Tablet PO ×2 (00:23→09:46)
[2023-09-06] MEDS: Acetaminophen 500 MG Tablet 1000 MG PO (00:25)
[2023-09-06 04:56] VITALS: BP 115/63; PULSE 75; RESP 18; TEMP 36.6; O2SAT 95
[2023-09-06] MEDS: 0.9% Normal Saline (1000mL) 1,000 ML 75 ML IV ×2 (05:00→21:49)
[2023-09-06] MEDS: Metoclopramide 10 MG/2 ML Vial 5 MG IV (06:49)
[2023-09-06] MEDS: Sucralfate 1 GM Tablet PO ×3 (06:49→21:51)
[2023-09-06] MEDS: Vancomycin 125 MG/5 ML Susp PO.SYRINGE PO ×3 (06:49→19:39)
[2023-09-06] MEDS: metroNIDAZOLE 500 MG/100 ML BAG 100 MG IV ×3 (06:49→21:49)
[2023-09-06] MEDS: Menthol/Lanolin/Calamine/Znox 113 GM Tube 1 APPLIC TOPICAL ×2 (06:50→21:52)
[2023-09-06 07:01] VITALS: PULSE 81; O2SAT 95
--- NOTE | 2023-09-06 08:14 | EX.PCM.CON.S ---
Assessment & Plan Assessment/Plan (1) Pulmonary emboli: (2) Acute anemia: PLAN: Plan I discussed the IVC filter insertion procedure including risks, benefits, and recovery with the patient and her . All of their questions were addressed. She is agreeable to proceed with IVC Filter placement. Will place IVC Filter today in the supervisor laboratory animal facility. HPI Consult Data Date of Consult: 09/06/23 HPI Narrative HPI Narrative: MISTI HUERTA, is a 78 F who was admitted on 09/01/23 with abdominal pain and workup has revealed C. Dif colitis and a duodenal mass which Dr. Antonio removed endoscopically yesterday. She has had downtrending Hgb over the last few months after starting Eliquis for DVT and PE in June 2023. DVT/PE by report provoked by her underlying malignancy. She is diagnosed with metastatic melanoma and follows with Dr. Palma. So far has been treated with immunotherapy though this is currently paused due to GI adverse effects. She denies any history of radiation to the abdomen or pelvis. With her persistent anemia, recent PE, and ongoing risk for clotting, we are consulted for consideration of IVC filter placement. Hgb was 8.8 yesterday, pending today. Her Eliquis is held. She reports yesterday she was very foggy from the sedation for her endoscopy procedure, she is feeling better this morning. She denies any new/worsening swelling, pain, redness in her lower extremities or any new/worsening SOB, CP, palpitations. [facility] Medical History Adrenal insufficiency Anemia Anticoagulated Bilateral pulmonary embolism COVID-19 Essential hypertension Former smoker GERD (gastroesophageal reflux disease) History of immunosuppression therapy History of steroid therapy Hyperlipidemia Left leg DVT 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 Mild cognitive impairment Myeloma Polyneuropathy Post-menopausal Seizures Home Medications metoprolol succinate 50 mg tablet,extended release 24 hr 50 mg PO DAILY heart rate ##0 08/15/20 [Rx Last Taken 08/26/23 10:00] atorvastatin 40 mg tablet 40 mg PO DAILY cholesterol 09/24/20 [History Last Taken 08/26/23 10:00] melatonin 5 mg capsule 3 mg PO QHS PRN Sleep 10/26/20 [History Last Taken 09/12/22] lisinopril 20 mg tablet 20 mg PO DAILY blood pressure 07/13/23 [History Last Taken 08/26/23 10:00] acetaminophen 500 mg tablet 1,000 mg (2 x 500 mg) PO Q6H PRN PRN Pain Score 1-5 #0 tabs 07/27/23 [Rx Last Taken Unknown] apixaban 5 mg tablet (Eliquis) 5 mg PO BID blood thinner 30 days #60 tabs 07/27/23 [Rx Last Taken 08/26/23 10:00] potassium chloride 20 mEq tablet,extended release(part/cryst) (Klor-Con M) 20 meq PO BIDCM supplement 30 days #60 tabs 07/27/23 [Rx Last Taken 08/26/23 09:00] nystatin 100,000 unit/mL oral suspension 5 ml PO Q8H PRN PRN thrush 08/26/23 [History Last Taken Unknown] ondansetron HCl 8 mg tablet 8 mg PO Q8H PRN nausea 08/26/23 [History Last Taken 08/25/23] prednisone 10 mg tablet 5 mg PO DAILYCM colitis 08/26/23 [History Last Taken 08/26/23 10:00] sucralfate 1 gram tablet 1 g PO Q6H colitis 08/26/23 [History Last Taken 08/26/23 17:00] metoclopramide HCl 5 mg tablet 5 mg PO Q6 #120 tabs 08/29/23 [Rx Last Taken Unknown] pantoprazole 40 mg tablet,delayed release 40 mg PO DAILY #30 tabs 08/29/23 [Rx Last Taken Unknown] scopolamine base 1 mg over 3 days transdermal patch 1 patch transdermal Q3D #4 ea 08/29/23 [Rx Last Taken Unknown] Allergy/AdvReac Type Severity Reaction Status Date / Time Sulfa (Sulfonamide Allergy Unknown NEEDS Verified 08/26/23 11:56 Antibiotics) FOLLOW-UP amoxicillin AdvReac Severe Diarrhea Verified 08/26/23 11:56 sulfamethoxazole AdvReac Severe Anaphylaxis Verified 08/26/23 11:56 [From Bactrim] trimethoprim [From Bactrim] AdvReac Swelling Verified 08/26/23 11:56 Family History Brother Alcoholism Asthma Myocardial infarction, Onset Age: 52 Seizures Skin cancer Sister CVA (cerebral vascular accident) Asthma Grandfather Asthma Father Myocardial infarction, Onset Age: 46 Had at age 46 & 62 Mother Myocardial infarction, Onset Age: 82 Surgical History History of amputation of finger History of cataract surgery History of eye surgery History of right hip replacement History of total left hip replacement Social History household members: spouse Smoking Status: Former smoker Tobacco: How many years used: 30 how long ago did patient quit smokin years ago second hand exposure: No alcohol intake: current alcohol intake frequency: holidays/special occasions only Alcohol type: wine substance use type: does not use amy/lutheran: None seatbelt use: always Physical Exam Const alert, oriented x3 and no apparent distress General Appearance: cooperative HEENT normocephalic, head/scalp atraumatic and external nose normal Eyes EOMs intact bilaterally Neck General: normal visual inspection Resp normal respiratory effort Effort and Inspection: able to speak in complete sentences Cardio Rate: regular rate Rhythm: regular rhythm Extremity normal to inspection Skin no rashes or lesions noted Neuro CN's II-XII intact bilaterally Speech: speech normal Psych mental status grossly normal Appearance: grossly normal Medical Records Data Medical Nutrition Assessment Dietitian: Malnutrition Criteria Met Start: 09/02/23 12:55 Freq: Status: Active Protocol: Document 09/05/23 12:26 [facility] (Rec: 09/05/23 12:26 [facility] Desktop) Nutrition Malnutrition Evidence of Malnutrition Exists Yes Malnutrition (severe): Chronic Evidenced By Suboptimal Energy Intake ( Severe),Weight Loss (Severe) Clinical Problem Chronic Disease or Condition Related Malnutrition Etiology related to GI dysfunction and inadequate energy intake Signs/Symptoms as evidenced by <75% po intake x > 1 month and 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 Lab / Micro Data 09/06/23 08:18 09/06/23 08:18 Labs: Laboratory Results - last 24 hr 09/05/23 07:09: PT 22.1 H, INR 1.9, APTT 53.8 H, Sodium 136, Potassium 3.2 L, Chloride 106, Carbon Dioxide 25.0, Anion Gap 5, BUN 4 L, Creatinine 0.45 L, Estim Creat Clear Calc 56.01, Est GFR (MDRD) Af Amer 173, Est GFR (MDRD) Non-Af 143, BUN/Creatinine Ratio 8.8 L, Glucose 83, Calcium 7.6 L
[2023-09-06 08:29] LABS: Absolute Lymphocyte Count 0.69 X10^3/uL (0.83-4.51); Absolute Neutrophil Count 2.7 X10^3/uL (2.0-7.7); Basophil# 0.01 X10^3/uL; Basophil% 0.3 % (0-1); Hemoglobin 9.4 g/dL (12.0-15.0); Lymphocyte # 0.69 X10^3/ul (0.83-4.51); Lymphocyte % 18.9 % (19-41); Mean Corp Hgb Conc 31.3 g/dL (32-36); Mean Corpuscular Volume 92.6 fL (81-99); Mean Platelet Vol. 8.9 fl (6.2-12.0); Monocyte# 0.28 X10^3/uL; Monocyte% 7.7 % (0-10); NRBC Flagged by Analyzer 0 % (0-5); Neutrophil # 2.65 X10^3/uL (2.7-7.7); Neutrophil % 72.3 % (47-70); Platelet Count 250 K/mm3 (150-450); RBC Distribution Width CV 15.4 % (11.6-14.6); Red Blood Count 3.24 M/mm3 (4.2-5.4); White Blood Count 3.7 K/mm3 (4.4-11.0)
[2023-09-06 08:51] LABS: Anion Gap 8 (5-15); BUN 4 mg/dL (7-18); BUN/Creat Ratio 9.5 RATIO (10-20); Calcium,Total 7.7 mg/dL (8.5-10.1); Chloride 107 mmol/L (98-107); Creatinine, Serum 0.42 mg/dL (0.55-1.02); EST Glomerular Filtration Rate 155 mL/min (>60); Est Glom Filt Rate - Afr Amer 187 mL/min (>60); Estimated Creatinine Clearance 56.01 ml/min; Glucose 116 mg/dL (74-106); Sodium Level 137 mmol/L (136-145)
[2023-09-06 09:46] VITALS: PULSE 84
[2023-09-06] MEDS: Metoprolol(XL)Succ 50 MG Tablet PO (09:46)
[2023-09-06] MEDS: Potassium Chloride Oral Tablet 20 MEQ 40 MEQ PO ×2 (09:46→19:39)
[2023-09-06] MEDS: Pantoprazole Sodium 40 MG Tablet PO ×2 (09:46→21:51)
[2023-09-06] MEDS: Lisinopril 20 MG Tablet PO (09:46)
[2023-09-06 10:00] VITALS: BP 124/62; PULSE 69; RESP 16; TEMP 36.6; O2SAT 99
--- NOTE | 2023-09-06 11:50 | NURSING ---
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
--- NOTE | 2023-09-06 12:39 | PCM.OPRPT ---
Report of Operation Date of Procedure: 09/06/23 Pre-Operative Diagnosis: PE, contraindication to anticoagulation Post-Operative Diagnosis: same Surgery/Procedure Performed:: insertion IVC filter Surgeon: Sanjeev Ceja Type of Anesthesia: Local and Sedation,Conscious Estimated Blood Loss (mL): 2 Description of Procedure: HPI: Patient is a 78-year-old female with recent pulmonary embolism admitted with blood loss anemia from suspected GI source. She is contraindicated to anticoagulation so she is taken now for inferior vena cava filter placement. Description of procedure: Upon obtaining form consent and verification correct patient procedure site patient taken to the [employer] where she was positioned prepped and draped in usual fashion. Time was performed consultation administered Versed and fentanyl. Skin overlying the right common femoral vein was then anesthetized 1% lidocaine the vessel accessed retrograde fashion with function needle wire under ultrasound guidance. This was exchanged for micropuncture sheath routine injection ilio caval venogram was performed which revealed satisfactory placement no extravasation dissection. This also revealed normal caliber vena cava which was patent caliber right iliac vein system which was patent. A J-wire was then advanced and the micropuncture sheath exchanged out first for the dilator which was used to dilate the subcutaneous tissue and then exchanged for the Cook IVC filter delivery sheath. This was advanced in the position in the inferior vena cava and digital traction venacavogram was performed which confirmed the confluence of the renal veins. The dilator from the delivery sheath was then withdrawn and the Cook Celect inferior vena cava filter was then advanced into position deployed below the lowest renal vein. Of note the patient had lower renal vein confluence then is typically the observed. Completion venacavogram confirmed satisfactory position below the lowest renal vein with no significant tilt. The sheath was then withdrawn followed by 5 minutes manual pressure after which satisfactory stasis noted. Patient was then taken to the recovery room prior to return to the medical floor. Grafts/Implants Used: Cook Celect
[2023-09-06 14:14] VITALS: BP 126/63; PULSE 73; RESP 16; TEMP 36.4; O2SAT 98
--- NOTE | 2023-09-06 15:31 | PN.GI_ITS ---
Subjective Subjective Patient underwent EGD yesterday with removal of duodenal polypoid mass. She had no complications during the procedure yesterday. She denies any abdominal pain. She still has nausea. We attempted to give her scopolamine and 0.25 of Xanax and it made her very disoriented and very sleepy. She still is very sleepy with only the administration of scopolamine patch. She still is not very hungry but she would like to eat something. Currently she is n.p.o. for a placement of IVC filter today. Objective Data Objective Data Vital Signs: Vital Signs Temp Pulse Resp BP Pulse Ox O2 Del Method O2 Flow Rate 97.5 F L 73 16 126/63 H 98 Room Air 2 09/06/23 14:14 09/06/23 14:14 09/06/23 14:14 09/06/23 14:14 09/06/23 14:14 09/06/23 14:14 09/06/23 04:56 Oxygen Flow Rate (L/min) 2 Oxygen Delivery Method Room Air Weight: 151 lb 7.321 oz Body Mass Index (BMI) 24.4 Intake & Output: Intake and Output for Last 24 Hours 09/04/23 09/05/23 09/06/23 23:59 23:59 23:59 Intake Total 1776.25 / 1776.25 2893.75 / 2893.75 942.50 / 942.50 Output Total 500 / 500 Balance 1776.25 / 1776.25 2393.75 / 2393.75 942.50 / 942.50 Medical Nutrition Assessment Dietitian: Malnutrition Criteria Met Start: 09/02/23 12: 55 Freq: Status: Active Protocol: Document 09/05/23 12:26 SLA (Rec: 09/05/23 12:26 [facility] Desktop) Nutrition Malnutrition Evidence of Malnutrition Exists Yes Malnutrition (severe): Chronic Evidenced By Suboptimal Energy Intake ( Severe),Weight Loss (Severe) Clinical Problem Chronic Disease or Condition Related Malnutrition Etiology related to GI dysfunction and inadequate energy intake Signs/Symptoms as evidenced by <75% po intake x > 1 month and 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 Lab / Micro Data 09/06/23 08:18 09/06/23 08:18 Labs: Laboratory Results - last 24 hr 09/06/23 08:18: WBC 3.7 L, RBC 3.24 L, Hgb 9.4 L, Hct 30.0 L, MCV 92.6, MCH 29.0, MCHC 31.3 L, RDW Std Deviation 53.0 H, RDW Coeff of Lynn 15.4 H, Plt Count 250, MPV 8.9, Immature Gran % (Auto) 0.800, Neut % (Auto) 72.3 H, Lymph % (Auto) 18.9 L, [place] % (Auto) 7.7, Eos % (Auto) 0.0, Baso % (Auto) 0.3, Absolute Neuts (auto) 2.7, Absolute Lymphs (auto) 0.69 L, Nucleated RBC % 0, Sodium 137, Potassium 4.0, Chloride 107, Carbon Dioxide 22.0, Anion Gap 8, BUN 4 L, Creatinine 0.42 L, Estim Creat Clear Calc 56.01, Est GFR (MDRD) Af Amer 187, Est GFR (MDRD) Non-Af 155, BUN/Creatinine Ratio 9.5 L, Glucose 116 H, Calcium 7.7 L Micro: Microbiology 09/01/23 23:00 Stool Stool Lactoferrin - Final 09/01/23 23:00 Stool Enteric Bacteriology - Final 09/01/23 23:00 Stool C. difficile GDH Antigen & Toxins - Final 09/01/23 23:00 Stool Clostridioides difficile (PCR) - Final 09/01/23 16:26 Stool Stool Occult Blood (MARQUES) - Final Occult Blood Positive Physical Exam Const alert, oriented x3 and no apparent distress General Appearance: cooperative HEENT normocephalic, head/scalp atraumatic and external nose normal Eyes EOMs intact bilaterally Neck General: normal visual inspection Resp normal respiratory effort Effort and Inspection: able to speak in complete sentences Cardio Rate: regular rate Rhythm: regular rhythm Extremity normal to inspection Skin no rashes or lesions noted Neuro CN's II-XII intact bilaterally Speech: speech normal Psych mental status grossly normal Appearance: grossly normal Assessment & Plan Assessment/Plan (1) Metabolic encephalopathy: (2) C. difficile colitis: (3) Weakness: (4) Abdominal pain: QUALIFIERS: Abdominal location: generalized Qualified Code(s): R10.84 - Generalized abdominal pain (5) Diarrhea: QUALIFIERS: Diarrhea type: presumed infectious Qualified Code(s): R19.7 - Diarrhea, unspecified (6) Duodenal mass: PLAN: Plan Diarrhea -C. difficile is positive -Continue IV Flagyl and add oral vancomycin given her history of immunosuppression -Transition to oral vancomycin at discharge for total treatment day of 14 days--> day 1 of 14 -Isolation for C. difficile -Monitor stools -IV fluid is p.o. intake has been poor logy consulted for Hemoccult positive stools however she has had Hemoccult positive stools due to history of colitis -She also was found to have C. difficile and I think at this point we will probably just monitor her hemoglobin closely -EGD performed and showed duodenal mass with biopsies taken -Biopsies are still pending for pathology results -Continue IV PPI for now and switch to famotidine as an outpatient to decrease risk of C. difficile recurrent -Will continue Reglan but make IV while she is hospitalized -Continue scopolamine patch -Continue Carafate if able to tolerate p.o. Acute anemia -Hemoglobin has been trending down since mid June when she was started on Eliquis for PE -Baseline hemoglobin prior to June was 12-14 -Hemoglobin was 10.6 on admission however she looked a little bit dehydrated but stable on repeat -Concern for some GI loss -Patient is fully anticoagulated for history of DVT/PE--> will continue for now given the extensiveness of her PE but if her hemoglobin drops we will need to discontinue -Patient was diagnosed with an occlusive thrombus on 07/05/2023 -May need to consider IVC filter but her bleeding has stopped for now as I think she developed some episodes of ischemic colitis associated with acute C. difficile infection 09/03/23-her hemoglobin has trended down to 9. I will order repeat hemoglobin later on this evening. 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 I believe we will be able to remove it without having to do a submucosal dissection. 09/04/23- I put her on 0.25mg of Xanax TID and Scopolamine patch. If it works she should be transitioned to Olanzapine as it works very well for non chemotherapy induced nausea and vomiting. It works similiar to Haldol without the risk of extrapyradimal effects. 09/05/23-I will stop her Xanax and continue scopolamine patch. I still think she would benefit from olanzapine but I would like to make sure she has benzodiaz epines out of her system. This can be started as an outpatient. 09/06/23-continue scopolamine patch for now and reassess after surgery. I still think she would benefit from olanzapine but I would like to make sure she has benzodiazepines out of her system.
--- NOTE | 2023-09-06 17:15 | PCM.PN.HOSP ---
Reason for Visit Reason for Visit: Diagnoses Enterocolitis due to Clostridium difficile, not specified as recurrent (09/02/23) Anemia, unspecified (09/02/23) Metabolic encephalopathy (09/02/23) Other pulmonary embolism without acute cor pulmonale (09/02/23) Other diseases of stomach and duodenum (09/02/23) Generalized abdominal pain (09/02/23) Diarrhea, unspecified (09/02/23) Weakness (09/02/23) Objective Data Objective Data Vital Signs: Vital Signs Temp Pulse Resp BP Pulse Ox O2 Del Method O2 Flow Rate 97.5 F L 73 16 126/63 H 98 Room Air 2 09/06/23 14:14 09/06/23 14:14 09/06/23 14:14 09/06/23 14:14 09/06/23 14:14 09/06/23 14:14 09/06/23 04:56 Oxygen Flow Rate (L/min) 2 Oxygen Delivery Method Room Air Weight: 151 lb 7.321 oz Body Mass Index (BMI) 24.4 Intake & Output: Intake and Output for Last 24 Hours 09/04/23 09/05/23 09/06/23 23:59 23:59 23:59 Intake Total 1776.25 / 1776.25 2893.75 / 2893.75 1042.50 / 1042.50 Output Total 500 / 500 Balance 1776.25 / 1776.25 2393.75 / 2393.75 1042.50 / 1042.50 Medical Nutrition Assessment Dietitian: Malnutrition Criteria Met Start: 09/02/23 12:55 Freq: Status: Active Protocol: Document 09/05/23 12:26 SLA (Rec: 09/05/23 12:26 [facility] Desktop) Nutrition Malnutrition Evidence of Malnutrition Exists Yes Malnutrition (severe): Chronic Evidenced By Suboptimal Energy Intake ( Severe),Weight Loss (Severe) Clinical Problem Chronic Disease or Condition Related Malnutrition Etiology related to GI dysfunction and inadequate energy intake Signs/Symptoms as evidenced by <75% po intake x > 1 month and 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 Lab / Micro Data 09/06/23 08:18 09/06/23 08:18 Labs: Laboratory Results - last 24 hr 09/06/23 08:18: WBC 3.7 L, RBC 3.24 L, Hgb 9.4 L, Hct 30.0 L, MCV 92.6, MCH 29.0, MCHC 31.3 L, RDW Std Deviation 53.0 H, RDW Coeff of Lynn 15.4 H, Plt Count 250, MPV 8.9, Immature Gran % (Auto) 0.800, Neut % (Auto) 72.3 H, Lymph % (Auto) 18.9 L, [place] % (Auto) 7.7, Eos % (Auto) 0.0, Baso % (Auto) 0.3, Absolute Neuts (auto) 2.7, Absolute Lymphs (auto) 0.69 L, Nucleated RBC % 0, Sodium 137, Potassium 4.0, Chloride 107, Carbon Dioxide 22.0, Anion Gap 8, BUN 4 L, Creatinine 0.42 L, Estim Creat Clear Calc 56.01, Est GFR (MDRD) Af Amer 187, Est GFR (MDRD) Non-Af 155, BUN/Creatinine Ratio 9.5 L, Glucose 116 H, Calcium 7.7 L Micro: Microbiology 09/01/23 23:00 Stool Stool Lactoferrin - Final 09/01/23 23:00 Stool Enteric Bacteriology - Final 09/01/23 23:00 Stool C. difficile GDH Antigen & Toxins - Final 09/01/23 23:00 Stool Clostridioides difficile (PCR) - Final 09/01/23 16:26 Stool Stool Occult Blood (MARQUES) - Final Occult Blood Positive Physical Exam Narrative Seen and examined. Patient does not have abdominal pain. Did not had bowel movement for 2 days. Abdominal pain is resolved. Patient went for IVC filter. Eliquis on hold. Physical exam General: Alert, Oriented x3, Cooperative HEENT: Atraumatic, PERRLA, EOMI, Normocephalic Oral: No Gingival or Mucosal Lesions/ Ulcerations Neck: Supple, No JVD, Negative Carotid Bruits Lungs: Air entry diminished in bilateral lung bases. No crepitation/rhonchi Cardiovascular: Regular rate, Regular Rhythm, Normal S1, Normal S2, No murmurs Abdomen: Bowel Sounds Present, Soft, Non Tender, Non-Distended. No palpable mass. : No renal angle tenderness. No suprapubic tenderness. Extremities: No edema, Capillary Refill Less than 3 Seconds Skin: No rashes, No breakdown Musculoskeletal: No Tenderness to Palpation of Joints or Extremities. Missing finger on left hand. Neurological: Cranial nerves II-XII grossly intact, DTR 2+/4. No acute focal neurological deficit. Psych/Mental Status: Flat affect. Assessment & Plan Assessment/Plan (1) Metabolic encephalopathy: (2) C. difficile colitis: (3) Weakness: (4) Abdominal pain: QUALIFIERS: Abdominal location: generalized Qualified Code(s): R10.84 - Generalized abdominal pain (5) Diarrhea: QUALIFIERS: Diarrhea type: presumed infectious Qualified Code(s): R19.7 - Diarrhea, unspecified (6) Duodenal mass: PLAN: Plan C. difficile infection/diarrhea -C. difficile is positive Agricultural Chemicals Inspector was consulted. On oral vancomycin and IV Flagyl. Abdominal pain is diarrhea is better. Clinical monitoring for abdominal pain and stool frequency and consistency. 09/04: Diarrhea is improving. Abdominal pain has resolved. Continue above medication. 09/05: Diarrhea has stopped. Continue medication. Will probably discontinue IV Flagyl from tomorrow. 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 Biopsies still pending. IV PPI. On Reglan and scopolamine patch. Carafate. 09/04: Duodenal mass biopsy shows fragments of adenomatous polyp. Discussed with the creative specialist. Plan for EGD polypectomy. 09/05: Eliquis on hold. Discussed with Dr. Antonio for polypectomy. 09/06: Entire EGD on 09/05. Complete removal of duodenal mass/adenoma was done. Clip was placed mucosal resection performed and retrieval was complete. Await pathology results. Continue current medications. Repeat upper endoscopy in 6 weeks for surveillance. Severe malnutrition -Add Ensure supplementation -Dietary consult pending Mild cognitive impairment: Patient had acute confusion. MRI with IV contrast was ordered. Not reported. Failure to thrive/debility -Anticipate multifactorial -Patient was seen by PT and OT at last hospitalization she did well enough to go home we will hold off on consultation for now unless she is here for next period of time -Case management and social work consultation to assist with discharge planning -Suspect patient at the very least will need home health at discharge however may need placement depending on functional status Acute anemia: Gradual decrease in hemoglobin from 10.6-9.0. -Baseline hemoglobin prior to June was 12-14 -Patient is fully anticoagulated for history of DVT/PE--> will continue for now given the extensiveness of her PE but if her hemoglobin drops we will need to discontinue -Patient was diagnosed with an occlusive thrombus on 07/05/2023 PE/DVT -Patient was diagnosed with occlusive thrombus in the left pulmonary artery with nonocclusive clot in the distal peripheral branches of the right pulmonary artery with moderate thrombus in the mid and distal half of the left main pulmonary artery with no saddle embolus on 07/05/2023 If patient could not continue Eliquis will need evaluation for IVC filter. 09/05: Discussed with vascular surgeon Dr. Sanjeev Ceja and agreed for IVC filter. Discussed with the patient that will be second line defense as patient had GI bleed on Eliquis and will be holding Eliquis for few days for polypectomy. Will try that she cannot tolerate Eliquis. 09/06: Patient had insertion of IVC filter on 09/06. Metastatic melanoma -Had been maintained on immunotherapy however recent issues with immunotherapy related colitis -Patient had severe diarrhea that required high-dose steroids--> steroids are being weaned -Follows with Dr. Palma--> patient had been responding well to therapy however had significant side effects and plan is to restage -Upcoming PET scan -Recommend ongoing outpatient follow-up--> follows with Dr. Palma Hypertension -At goal -Continue home medications with lisinopril and metoprolol -As needed IV hydralazine is available -May need to consider IV replacement if p.o. intake remains problematic Hyperlipidemia -Continue home statin Immunotherapy related colitis -Continue low-dose steroid--> currently on 5 mg daily -Outpatient follow-up with Dr. Palma Adrenal insufficiency -Continue prednisone therapy History of GERD -Continue PPI and Carafate if patient tolerates History of cerebellar stroke -Continue risk factor modification History of epilepsy -Patient follows as an outpatient with Dr. Hughes -Does not take any antiepileptic medication -Monitor History of tobacco abuse -Remote DVT prophylaxis -Currently fully anticoagulated for recent PE CODE STATUS -Full code is verified on admission Charges/Coding Visit Charges Inpatient E&M: 34479 Subs Hosp L2
[2023-09-06] MEDS: Ensure Plus High Protein 120 ML LIQUID PO (19:41)
[2023-09-06 21:34] VITALS: BP 110/54; PULSE 83; RESP 18; TEMP 36.6; O2SAT 98
[2023-09-06] MEDS: Atorvastatin Calcium 40 MG Tablet PO (21:51)
[2023-09-06] MEDS: MELATONIN 3 MG TABLET PO (21:51)
[2023-09-07 00:12] VITALS: BP 107/61; PULSE 78; RESP 18; TEMP 36.6; O2SAT 96
[2023-09-07] MEDS: Vancomycin 125 MG/5 ML Susp PO.SYRINGE PO ×2 (00:14→05:02)
[2023-09-07] MEDS: Metoclopramide 10 MG/2 ML Vial 5 MG IV ×2 (00:15→05:01)
[2023-09-07] MEDS: 0.9% Saline Lock 10 ML Syringe IV (00:16)
[2023-09-07 04:56] VITALS: BP 124/75; PULSE 77; RESP 20; TEMP 36.6; O2SAT 98
[2023-09-07] MEDS: Menthol/Lanolin/Calamine/Znox 113 GM Tube 1 APPLIC TOPICAL (04:59)
[2023-09-07] MEDS: metroNIDAZOLE 500 MG/100 ML BAG 100 MG IV (05:00)
[2023-09-07] MEDS: Sucralfate 1 GM Tablet PO (05:07)
[2023-09-07 08:43] VITALS: BP 100/53; PULSE 83; RESP 18; TEMP 36.6; O2SAT 99
[2023-09-07 08:45] VITALS: BP 100/53; PULSE 83
[2023-09-07] MEDS: Pantoprazole Sodium 40 MG Tablet PO (08:45)
[2023-09-07] MEDS: Lisinopril 20 MG Tablet PO (08:45)
[2023-09-07] MEDS: Metoprolol(XL)Succ 50 MG Tablet PO (08:45)
[2023-09-07] MEDS: predniSONE 5 MG Tablet PO (08:45)
[2023-09-07] MEDS: Potassium Chloride Oral Tablet 20 MEQ 40 MEQ PO (08:46)
[2023-09-07] MEDS: Ensure Plus High Protein 120 ML LIQUID PO (08:46)
--- NOTE | 2023-09-07 10:09 | PCM.PN.SRG ---
Subjective Subjective Patient is seen sitting up in the chair this morning. She complains of nausea and some epigastric discomfort due to taking her morning meds on an empty stomach. Otherwise, she denies abdominal pain or pain in the groin access site. No swelling, bleeding, drainage from the R groin access site. Objective Data Objective Data Vital Signs: Vital Signs Temp Pulse Resp BP Pulse Ox O2 Del Method O2 Flow Rate 97.8 F 83 18 100/53 L 99 Room Air 2 09/07/23 08:43 09/07/23 08:45 09/07/23 08:43 09/07/23 08:45 09/07/23 08:43 09/07/23 08:56 09/06/23 04:56 Oxygen Flow Rate (L/min) 2 Oxygen Delivery Method Room Air Weight: 151 lb 7.321 oz Body Mass Index (BMI) 24.4 Intake & Output: Intake and Output for Last 24 Hours 09/05/23 09/06/23 09/07/23 23:59 23:59 23:59 Intake Total 2893.75 / 2893.75 1042.50 / 1042.50 400 / 400 Output Total 500 / 500 Balance 2393.75 / 2393.75 1042.50 / 1042.50 400 / 400 Medical Nutrition Assessment Dietitian: Malnutrition Criteria Met Start: 09/02/23 12:55 Freq: Status: Active Protocol: Document 09/05/23 12:26 SLA (Rec: 09/05/23 12:26 SLA Desktop) Nutrition Malnutrition Evidence of Malnutrition Exists Yes Malnutrition (severe): Chronic Evidenced By Suboptimal Energy Intake ( Severe),Weight Loss (Severe) Clinical Problem Chronic Disease or Condition Related Malnutrition Etiology related to GI dysfunction and inadequate energy intake Signs/Symptoms as evidenced by <75% po intake x > 1 month and 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 Lab / Micro Data 09/06/23 08:18 09/06/23 08:18 Micro: Microbiology 09/01/23 23:00 Stool Stool Lactoferrin - Final 09/01/23 23:00 Stool Enteric Bacteriology - Final 09/01/23 23:00 Stool C. difficile GDH Antigen & Toxins - Final 09/01/23 23:00 Stool Clostridioides difficile (PCR) - Final 09/01/23 16:26 Stool Stool Occult Blood (MARQUES) - Final Occult Blood Positive Physical Exam Const alert, oriented x3 and no apparent distress General Appearance: cooperative HEENT normocephalic, head/scalp atraumatic and external nose normal Eyes EOMs intact bilaterally Neck General: normal visual inspection Resp normal respiratory effort Effort and Inspection: able to speak in complete sentences Cardio Rate: regular rate Rhythm: regular rhythm Extremity normal to inspection Extremity Narrative: R groin access site is without any significant ecchymosis, focal swelling, erythema, warmth, drainage, excess tenderness. Skin no rashes or lesions noted Neuro CN's II-XII intact bilaterally Speech: speech normal Psych mental status grossly normal Appearance: grossly normal Assessment & Plan Assessment/Plan (1) Pulmonary emboli: (2) Acute anemia: PLAN: Plan She is s/p IVC filter placement on 09/06/22. She is doing well from this. No issues at the access site. Okay to remove the dry dressing tomorrow as long as it remains C/D/I today. Once removed, may leave open to air. She should not lift greater than 20 pounds for 2 weeks but otherwise may proceed with activity as tolerated. Will plan to have her follow-up as an outpatient in 3-4 weeks.
--- NOTE | 2023-09-07 10:30 | PCM.DC ---
Discharge Instructions Diet Discharge Diet: Low fat / Low cholesterol Activity Discharge Activity: Return to Normal Activity Weight Bearing Status: Weight bearing as tolerated Dressing / Incision Call your doctor if you observe: Fever of 101 or Higher, Coldness, Increased Pain, Numbness or Tingling, Change in Color, Inability to urinate, Inability to have a bowel movement, Using more than 1 pad per hour, Shortness of breath, Dizziness, Fainting spells, Swelling in the ankles, Chest pain, Prolonged hiccupping, Increased palpitations (irregular heartbeat) and Calf discomfort Follow Up Care When: IN 2 WEEKS Test Results: Test results from this visit will be discussed in further detail at your follow-up appointment, if applicable. Discharge Plan Admission Admit Date/Time: 09/02/23 19:09 Primary Reason for Your Visit: Postop C. difficile infection. Duodenal adenoma. IVC filter Attending Provider: Naseem Rios Primary Care Provider: Marvin Malloy Consulting Providers: Black Cruz; Jason Antonio; Ramya Maradiaga; Black Davila; Sanjeev Ceja Discharge Orders/Prescriptions Prescriptions: New vancomycin [Vancocin] 125 mg capsule 125 mg PO Q6H 7 Days Qty: 28 0RF Continued atorvastatin 40 mg tablet 40 mg PO DAILY melatonin 5 mg capsule 3 mg PO QHS PRN (Reason: Sleep) metoprolol succinate 50 MG tablet 50 mg PO DAILY Qty: 0 0RF Rx Instructions: Hold if heart rate less than 60/min lisinopril 20 mg tablet 20 mg PO DAILY acetaminophen 500 mg Tablet 1,000 mg PO Q6H PRN PRN (Reason: Pain Score 1-5) Qty: 0 0RF potassium chloride [Klor-Con M20] 20 mEq Tablet,Er Particles/Crystals 20 meq PO BIDCM 30 Days Qty: 60 0RF nystatin 100,000 unit/mL suspension 5 ml PO Q8H PRN PRN (Reason: thrush) Patient Comments: TAKE 5 ML BY MOUTH 4 TIMES DAILY ondansetron HCl 8 mg tablet 8 mg PO Q8H PRN (Reason: nausea) Patient Comments: take 1 tablet by mouth every 8 hours if needed for nausea and vomiting sucralfate 1 gram tablet 1 g PO Q6H Patient Comments: TAKE 1 TABLET BY MOUTH 4 TIMES A DAY. MIX WITH A LITTLE BIT OF WATER TO MAKE A SLURRY prednisone 10 mg Tablet 5 mg PO DAILYCM pantoprazole 40 mg Tablet,Delayed Release (Dr/Ec) 40 mg PO DAILY Qty: 30 0RF scopolamine base 1 mg over 3 days Patch 3 Day 1 patch transdermal Q3D Qty: 4 0RF metoclopramide HCl 5 mg Tablet 5 mg PO Q6 Qty: 120 0RF Held Eliquis 5 mg Tablet 5 mg PO BID 30 Days Qty: 60 0RF Hold Instructions: Start from 09/08/2023. Discontinue if platelet count drops less than 50,000 or hemoglobin less than 8 g% Referrals / Follow Up: Jason Antonio DO [Med Staff - Active Staff] - 10/16/23 7:20 am Marvin Malloy MD [Primary Care Provider] - 09/11/23 9:00 am Ismael Palma DO [Med Staff - Active Staff] - Within 1 Month Disposition Disposition (needs filled in before D/C Order can be placed): Home Health Service
--- NOTE | 2023-09-07 12:28 | CASEMGMT ---
SHI CM to pt room at this time. Pt states she feels safe going home via [facility] Pt states that she has a walker at home and denies other needs regarding DC. [facility] called and OT added to the order and they are aware pt is DC today.
--- NOTE | 2023-09-07 12:57 | DS.PCM_ITS ---
Providers Date of Admission: 09/02/23 Date of Discharge: 09/07/23 Primary Care Physician: Dr. Marvin Malloy MD Consultations 09/01/23 22:06 Consult: Gastroenterology Routine Consulting Provider: Jason Antonio Reason for Consult: Recent EGD with Gastric Tumor now with Diarrhea and Hem+ stools EMERGENT Consult: No Notified: Yes Date Notified: 09/02/23 Time Notified: 08:03 Method of Notification: Text 09/05/23 10:36 Consult: Vascular Surgery Routine Consulting Provider: Sanjeev Ceja Reason for Consult: RECENT H/o B/L PE, gi bleed, melanoma, ivc filter evaluation EMERGENT Consult: No Notified: Yes Date Notified: 09/05/23 Time Notified: 10:36 Method of Notification: Text Reason For Visit: DIARRHEA W/HEMOCCULT POSITIVE STOOLS, MALNUTRITION Diagnosis Discharge Diagnosis (1) Pulmonary emboli: Status: Acute Code(s): I26.99 - Other pulmonary embolism without acute cor pulmonale (2) Acute anemia: Status: Acute Code(s): D64.9 - Anemia, unspecified Plan C. difficile infection/diarrhea -C. difficile is positive Bookkeepers Supervisor was consulted. On oral vancomycin and IV Flagyl. Abdominal pain is diarrhea is better. Clinical monitoring for abdominal pain and stool frequency and consistency. 09/04: Diarrhea is improving. Abdominal pain has resolved. Continue above medication. 09/05: Diarrhea has stopped. Continue medication. Will probably discontinue IV Flagyl from tomorrow. 09/07: Patient tolerating normal diet. Flagyl discontinued earlier as mentioned above. 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 Biopsies still pending. IV PPI. On Reglan and scopolamine patch. Carafate. 09/04: Duodenal mass biopsy shows fragments of adenomatous polyp. Discussed with the fur trimmer. Plan for EGD polypectomy. 09/05: Shanti on hold. Discussed with Dr. Antonio for polypectomy. 09/06: Entire EGD on 09/05. Complete removal of duodenal mass/adenoma was done. Clip was placed mucosal resection performed and retrieval was complete. Await pathology results. Continue current medications. Repeat upper endoscopy in 6 weeks for surveillance. 09/07: Follow-up with Dr. Antonio is already made. This was verbally also told by me. Patient understood it patient also needs to follow-up with Dr. Palma, she had appointment yesterday. Follow-up for melanoma. Severe malnutrition -Add Ensure supplementation -Dietary consult pending Mild cognitive impairment: Patient had acute confusion. MRI with IV contrast was ordered. Not reported. Failure to thrive/debility -Anticipate multifactorial -Patient was seen by PT and OT at last hospitalization she did well enough to go home we will hold off on consultation for now unless she is here for next period of time -Case management and social work consultation to assist with discharge planning -Suspect patient at the very least will need home health at discharge however may need placement depending on functional status Acute anemia: Gradual decrease in hemoglobin from 10.6-9.0. -Baseline hemoglobin prior to June was 12-14 09/07: Hemoglobin 9 lower than baseline but actually little improved to 9.4 from 8.8. Patient on ferrous sulfate and ascorbic acid. Prescriptions given. -Patient is fully anticoagulated for history of DVT/PE--> will continue for now given the extensiveness of her PE but if her hemoglobin drops we will need to discontinue -Patient was diagnosed with an occlusive thrombus on 07/05/202309/08: Patient Eliquis was hold for the IVC filter and EGD. Patient can resume 09/08/2023 and watch for any rectal bleed. Recommended PCP to follow-up CBC after 1 week. PE/DVT -Patient was diagnosed with occlusive thrombus in the left pulmonary artery with nonocclusive clot in the distal peripheral branches of the right pulmonary ar frankie with moderate thrombus in the mid and distal half of the left main pulmonary artery with no saddle embolus on 07/05/2023 If patient could not continue Eliquis will need evaluation for IVC filter. 09/05: Discussed with vascular surgeon Dr. Sanjeev Ceja and agreed for IVC filter. Discussed with the patient that will be second line defense as patient had GI bleed on Eliquis and will be holding Eliquis for few days for polypectomy. Will try that she cannot tolerate Eliquis. 09/06: Patient had insertion of IVC filter on 09/06. Metastatic melanoma -Had been maintained on immunotherapy however recent issues with immunotherapy related colitis -Patient had severe diarrhea that required high-dose steroids--> steroids are being weaned -Follows with Dr. Palma--> patient had been responding well to therapy however had significant side effects and plan is to restage -Upcoming PET scan -Recommend ongoing outpatient follow-up--> follows with Dr. Palma Hypertension -At goal -Continue home medications with lisinopril and metoprolol -As needed IV hydralazine is available -May need to consider IV replacement if p.o. intake remains problematic Hyperlipidemia -Continue home statin Immunotherapy related colitis -Continue low-dose steroid--> currently on 5 mg daily -Outpatient follow-up with Dr. Palma Adrenal insufficiency -Continue prednisone therapy History of GERD -Continue PPI and Carafate if patient tolerates History of cerebellar stroke -Continue risk factor modification History of epilepsy -Patient follows as an outpatient with Dr. Hughes -Does not take any antiepileptic medication -Monitor History of tobacco abuse -Remote DVT prophylaxis -Currently fully anticoagulated for recent PE CODE STATUS -Full code is verified on admission Discharge medication reconciliation done. Discharge follow-up instructions completed. Discharge process discussed with the patient and all questions were answered to patient's satisfaction. Follow with PCP in 1 to 2 weeks Total time spent, exact 35 minutes on discharge meds reconciliation, examination, coordination of care with nurses and ancillary staff, review of imaging and blood test and discussion with the patient on follow-up instructions. Medications at Discharge Home Medications metoprolol succinate 50 mg tablet,extended release 24 hr 50 mg PO DAILY heart rate ##0 08/15/20 atorvastatin 40 mg tablet 40 mg PO DAILY cholesterol 09/24/20 melatonin 5 mg capsule 3 mg PO QHS PRN Sleep 10/26/20 lisinopril 20 mg tablet 20 mg PO DAILY blood pressure 07/13/23 acetaminophen 500 mg tablet 1,000 mg (2 x 500 mg) PO Q6H PRN PRN Pain Score 1-5 #0 tabs 07/27/23 apixaban 5 mg tablet (Eliquis) 5 mg PO BID blood thinner 30 days #60 tabs 07/27/23 potassium chloride 20 mEq tablet,extended release(part/cryst) (Klor-Con M) 20 meq PO BIDCM supplement 30 days #60 tabs 07/27/23 nystatin 100,000 unit/mL oral suspension 5 ml PO Q8H PRN PRN thrush 08/26/23 ondansetron HCl 8 mg tablet 8 mg PO Q8H PRN nausea 08/26/23 prednisone 10 mg tablet 5 mg PO DAILYCM colitis 08/26/23 sucralfate 1 gram tablet 1 g PO Q6H colitis 08/26/23 metoclopramide HCl 5 mg tablet 5 mg PO Q6 #120 tabs 08/29/23 pantoprazole 40 mg tablet,delayed release 40 mg PO DAILY #30 tabs 08/29/23 scopolamine base 1 mg over 3 days transdermal patch 1 patch transdermal Q3D #4 ea 08/29/23 ascorbic acid (vitamin C) 500 mg tablet 500 mg PO BID #60 tabs 09/07/23 ferrous sulfate 325 mg (65 mg iron) tablet 325 mg PO QODAY #30 tabs 09/07/23 vancomycin 125 mg capsule (Vancocin) 125 mg PO Q6H 7 days #28 caps 09/07/23 Physical Exam Narrative Seen and examined. Patient does not have abdominal pain. Abdominal pain is resolved. Patient went for IVC filter. Eliquis on hold and was told to resume tomorrow. Physical exam General: Alert, Oriented x3, Cooperative HEENT: Atraumatic, PERRLA, EOMI, Normocephalic Oral: No Gingival or Mucosal Lesions/ Ulcerations Neck: Supple, No JVD, Negative Carotid Bruits Lungs: Air entry diminished in bilateral lung bases. No crepitation/rhonchi Cardiovascular: Regular rate, Regular Rhythm, Normal S1, Normal S2, No murmurs Abdomen: Bowel Sounds Present, Soft, Non Tender, Non-Distended. No palpable mass. : No renal angle tenderness. No suprapubic tenderness. Extremities: No edema, Capillary Refill Less than 3 Seconds Skin: No rashes, No breakdown Musculoskeletal: No Tenderness to Palpation of Joints or Extremities. Missing finger on left hand. Neurological: Cranial nerves II-XII grossly intact, DTR 2+/4. No acute focal neurological deficit. Psych/Mental Status: Flat affect. Medical Records Data Medical Nutrition Assessment Dietitian: Malnutrition Criteria Met Start: 09/02/23 12:5 5 Freq: Status: Active Protocol: Document 09/05/23 12:26 [facility] (Rec: 09/05/23 12:26 [facility] Desktop) Nutrition Malnutrition Evidence of Malnutrition Exists Yes Malnutrition (severe): Chronic Evidenced By Suboptimal Energy Intake ( Severe),Weight Loss (Severe) Clinical Problem Chronic Disease or Condition Related Malnutrition Etiology related to GI dysfunction and inadequate energy intake Signs/Symptoms as evidenced by <75% po intake x > 1 month and 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 Weight / BMI Weight Weight: 151 lb 7.321 oz Body Mass Index (BMI) 24.4 ABG / Lab / Microbiology Data 09/06/23 08:18 09/06/23 08:18 Microbiology: Microbiology 09/01/23 23:00 Stool Stool Lactoferrin - Final 09/01/23 23:00 Stool Enteric Bacteriology - Final 09/01/23 23:00 Stool C. difficile GDH Antigen & Toxins - Final 09/01/23 23:00 Stool Clostridioides difficile (PCR) - Final 09/01/23 16:26 Stool Stool Occult Blood (MARQUES) - Final Occult Blood Positive D/C Instructions Discharge Diet: Low fat / Low cholesterol Weight Bearing Status: Weight bearing as tolerated Call your doctor if you observe: Fever of 101 or Higher, Coldness, Increased Pain, Numbness or Tingling, Change in Color, Inability to urinate, Inability to have a bowel movement, Using more than 1 pad per hour, Shortness of breath, Dizziness, Fainting spells, Swelling in the ankles, Chest pain, Prolonged hiccupping, Increased palpitations (irregular heartbeat) and Calf discomfort When: IN 2 WEEKS Meaningful Use Info Meaningful Use Diagnoses (Choose all that apply): None applicable Discharge Plan Admission Admit Date/Time: 09/02/23 19:09 Primary Reason for Your Visit: Postop C. difficile infection. Duodenal adenoma. IVC filter Attending Provider: Naseem Rios Primary Care Provider: Marvin Malloy Consulting Providers: Black Cruz; Jason Antonio; Ramya Maradiaga; Black Davila; Sanjeev Ceja Instructions Additional Instructions / Restrictions: Follow-up CBC in 1 week with PCP. Discharge Orders/Prescriptions Prescriptions: New vancomycin [Vancocin] 125 mg capsule 125 mg PO Q6H 7 Days Qty: 28 0RF ferrous sulfate 325 mg (65 mg iron) tablet 325 mg PO QODAY Qty: 30 2RF ascorbic acid (vitamin C) 500 mg tablet 500 mg PO BID Qty: 60 2RF Continued atorvastatin 40 mg tablet 40 mg PO DAILY melatonin 5 mg capsule 3 mg PO QHS PRN (Reason: Sleep) metoprolol succinate 50 MG tablet 50 mg PO DAILY Qty: 0 0RF Rx Instructions: Hold if heart rate less than 60/min lisinopril 20 mg tablet 20 mg PO DAILY acetaminophen 500 mg Tablet 1,000 mg PO Q6H PRN PRN (Reason: Pain Score 1-5) Qty: 0 0RF potassium chloride [Klor-Con M20] 20 mEq Tablet,Er Particles/Crystals 20 meq PO BIDCM 30 Days Qty: 60 0RF nystatin 100,000 unit/mL suspension 5 ml PO Q8H PRN PRN (Reason: thrush) Patient Comments: TAKE 5 ML BY MOUTH 4 TIMES DAILY ondansetron HCl 8 mg tablet 8 mg PO Q8H PRN (Reason: nausea) Patient Comments: take 1 tablet by mouth every 8 hours if needed for nausea and vomiting sucralfate 1 gram tablet 1 g PO Q6H Patient Comments: TAKE 1 TABLET BY MOUTH 4 TIMES A DAY. MIX WITH A LITTLE BIT OF WATER TO MAKE A SLURRY prednisone 10 mg Tablet 5 mg PO DAILYCM pantoprazole 40 mg Tablet,Delayed Release (Dr/Ec) 40 mg PO DAILY Qty: 30 0RF scopolamine base 1 mg over 3 days Patch 3 Day 1 patch transdermal Q3D Qty: 4 0RF metoclopramide HCl 5 mg Tablet 5 mg PO Q6 Qty: 120 0RF Held Eliquis 5 mg Tablet 5 mg PO BID 30 Days Qty: 60 0RF Hold Instructions: Start from 09/08/2023. Discontinue if platelet count drops less than 50,000 or hemoglobin less than 8 g% Referrals / Follow Up: Ismael Palma DO [Med Staff - Active Staff] - Within 1 Month Jason Antonio DO [Med Staff - Active Staff] - 10/16/23 7:20 am Marvin Malloy MD [Primary Care Provider] - 09/11/23 9:00 am Disposition Disposition (needs filled in before D/C Order can be placed): Home Health Service Charges/Coding Visit Charges Inpatient E&M: 56286 Disch Hosp >30min
[2023-09-07 13:20] VITALS: BP 105/52; PULSE 78; RESP 16; TEMP 36.8; O2SAT 98
--- NOTE | 2023-09-07 13:30 | CASEMGMT ---
Noted pt ordered vanco po. Pt nurse states pt received a text from [facility] pharmacy that the med is not in stock and will not be available until after 2pm tomorrow. RN CM called [facility], spoke with Samara, states they do have med in stock. Asked if they could trf med and she requested that it be cancelled from the prior pharmacy and reordered instead. RN CM into pt room, pt and present. They are agreeable to getting med at [facility] pharmacy, pt asks if it will be covered. He is aware that this RN CM will call to check the cost and see if there is a PA once it has been reordered. Pt and do not want to wait on med. They would like to come back to [facility]. They are aware that the RN CM will call them when this is ready. Pt nurse to update and request new rx.
--- NOTE | 2023-09-07 14:09 | PHA.DC_ITS ---
Pharmacy [facility] has performed discharge medication reconciliation and counseling for this patient. The patient's discharge medication list was reviewed for discrepancies and discrepancies were resolved. The patient was counseled on the following discharge medications and changes in medications for homegoing were reviewed. The Reason for Use, instructions for use, and potential side effects were reviewed for all new medications. The patient's questions regarding all of their medications were answered. 1. Ascorbic acid 500 mg PO BID 2. Ferrous sulfate 325 mg PO QODay 3. Vancomycin 125 mg PO Q6H x 7 days The patient was able to verbally demonstrate an understanding of their discharge medications. Medications at Discharge Home Medications metoprolol succinate 50 mg tablet,extended release 24 hr 50 mg PO DAILY heart rate ##0 08/15/20 atorvastatin 40 mg tablet 40 mg PO DAILY cholesterol 09/24/20 melatonin 5 mg capsule 3 mg PO QHS PRN Sleep 10/26/20 lisinopril 20 mg tablet 20 mg PO DAILY blood pressure 07/13/23 acetaminophen 500 mg tablet 1,000 mg (2 x 500 mg) PO Q6H PRN PRN Pain Score 1-5 #0 tabs 07/27/23 apixaban 5 mg tablet (Eliquis) 5 mg PO BID blood thinner 30 days #60 tabs 07/27/23 potassium chloride 20 mEq tablet,extended release(part/cryst) (Klor-Con M) 20 meq PO BIDCM supplement 30 days #60 tabs 07/27/23 nystatin 100,000 unit/mL oral suspension 5 ml PO Q8H PRN PRN thrush 08/26/23 ondansetron HCl 8 mg tablet 8 mg PO Q8H PRN nausea 08/26/23 prednisone 10 mg tablet 5 mg PO DAILYCM colitis 08/26/23 sucralfate 1 gram tablet 1 g PO Q6H colitis 08/26/23 metoclopramide HCl 5 mg tablet 5 mg PO Q6 #120 tabs 08/29/23 pantoprazole 40 mg tablet,delayed release 40 mg PO DAILY #30 tabs 08/29/23 scopolamine base 1 mg over 3 days transdermal patch 1 patch transdermal Q3D #4 ea 08/29/23 ascorbic acid (vitamin C) 500 mg tablet 500 mg PO BID #60 tabs 09/07/23 ferrous sulfate 325 mg (65 mg iron) tablet 325 mg PO QODAY #30 tabs 09/07/23 vancomycin 125 mg capsule (Vancocin) 125 mg PO Q6H 7 days #28 caps 09/07/23
--- NOTE | 2023-09-07 14:49 | CASEMGMT ---
[facility] called and they state the cost of the Vanc will be $59.54. No prior auth required. Pt kathy called and updated.
== END 2023-09-07 14:14 | disposition home health service (06) | DRG 356 ==
LOC: ED 19:50 → MS3 19:56
PROVIDERS: Anesthesiology; Internal Medicine; Internal Medicine Gastroenterology; Physician Assistant; Admitting Provider Internal Medicine; Emergency Provider Emergency Medicine; PCP Family Medicine; Visit Provider Internal Medicine
PROC: 0DJ08ZZ Inspection of Upper Intestinal Tract, Via Natural or Artificial Opening Endoscopic (ICD-10-PCS; CPT 43235; principal; 2023-09-05 12:20)
DX: A04.72 Enterocolitis due to Clostridium difficile, not specified as recurrent (principal); G93.41 Metabolic encephalopathy; E43 Unspecified severe protein-calorie malnutrition; I27.82 Chronic pulmonary embolism; E27.40 Unspecified adrenocortical insufficiency; K52.1 Toxic gastroenteritis and colitis; E88.09 Other disorders of plasma-protein metabolism, not elsewhere classified; C43.9 Malignant melanoma of skin, unspecified; D64.9 Anemia, unspecified; I10 Essential (primary) hypertension; G31.84 Mild cognitive impairment of uncertain or unknown etiology; G62.9 Polyneuropathy, unspecified; K21.9 Gastro-esophageal reflux disease without esophagitis; E78.5 Hyperlipidemia, unspecified; D13.2 Benign neoplasm of duodenum; R62.7 Adult failure to thrive; R53.1 Weakness; Z79.01 Long term (current) use of anticoagulants; R03.1 Nonspecific low blood-pressure reading; Z86.16 Personal history of COVID-19; Z87.891 Personal history of nicotine dependence; R53.81 Other malaise; Z80.8 Family history of malignant neoplasm of other organs or systems; Z79.52 Long term (current) use of systemic steroids; Z82.3 Family history of stroke; Z82.5 Family history of asthma and other chronic lower respiratory diseases; Z68.24 Body mass index [BMI] 24.0-24.9, adult; Z86.73 Personal history of transient ischemic attack (TIA), and cerebral infarction without residual deficits; T45.1X5A Adverse effect of antineoplastic and immunosuppressive drugs, initial encounter
CPT/HCPCS: 36415; 37191; 70553; 71045; 74177; 76937; 80048; 80053; 81001; 82274; 83630; 83690; 83735; 84100; 84134; 84484; 85014; 85018; 85025; 85610; 85730; 87177; 87209; 87493; 87506; 88305; 93005; 97116; 97162; 97166; 97530; 97535; 97802; 99152; 99285; A9575; C1880; C1894; J7030; P9612; Q9967; A4216; C1769; J2405; J3490

== ENCOUNTER → 2023-10-05 | Outpatient (CLI) | payer MEDICARE, OTHER, SELFPAY ==
[2023-10-05] MEDS: Pentamidine Isethionate 300 MG, Water For Injection,Sterile 6 ML INHALATION (09:27)
== END | disposition home or self-care (01) ==
LOC: PSN 09:18
PROVIDERS: PCP Family Medicine; Referring Provider Internal Medicine Hematology & Oncology; Visit Provider Internal Medicine Hematology & Oncology
DX: C43.9 Malignant melanoma of skin, unspecified (principal); Z79.52 Long term (current) use of systemic steroids
CPT/HCPCS: 94642

== ENCOUNTER 2023-11-02 17:22 | Inpatient (IN) | payer MEDICARE, OTHER, SELFPAY ==
[2023-11-02] VITALS (10 sets, daily range): BP systolic 107–174; BP diastolic 41–97; PULSE 99–128; RESP 14–18; TEMP 36.5–37.6; O2SAT 95–100; BMI 24.7; BMI 23.7
--- NOTE | 2023-11-02 18:16 | EKG12_ITS ---
Test Reason : SYNCOPE Blood Pressure : / mmHG Vent. Rate : 102 BPM Atrial Rate : 102 BPM P-R Int : 160 ms QRS Dur : 072 ms QT Int : 358 ms P-R-T Axes : 061 069 058 degrees QTc Int : 466 ms Sinus tachycardia Otherwise normal ECG Confirmed by Shorty Simmons ([id number]), proposal editor CLAYTON QUINONES ([id number]) on 11/06/2023 7:10:19 AM Referred By: BONG/ISABELA Confirmed By:Shorty Simmons
--- NOTE | 2023-11-02 18:22 | EX.ED.DYSGE1 ---
HPI <HERBER El - Last Filed: 11/02/23 21:32> History of Present Illness Chief Complaint: Syncope Narrative Narrative: Patient presenting today due to nausea, vomiting, diarrhea, and a syncopal episode that occurred today. She reports that she was feeling well earlier today. Later in the afternoon, she began to feel nauseous and had multiple bouts of vomiting and diarrhea. She was sitting on the toilet when she became lightheaded and had a syncopal episode, hitting her forehead against the wall. She is on Eliquis due to history of PE. 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 She has been battling intermittent diarrhea since around May. She reports that she does have a history of C. difficile. She denies any fevers, chills, chest pain, shortness of breath, abdominal pain, hematemesis, and blood in the stool. 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 Mild cognitive impairment Myeloma Polyneuropathy Post-menopausal Pulmonary emboli Seizures Home Medications metoprolol succinate 50 mg tablet,extended release 24 hr 50 mg PO DAILY heart rate ##0 08/15/20 [Rx Last Taken 08/26/23 10:00] atorvastatin 40 mg tablet 40 mg PO DAILY cholesterol 09/24/20 [History Last Taken 08/26/23 10:00] lisinopril 20 mg tablet 20 mg PO DAILY blood pressure 07/13/23 [History Last Taken 08/26/23 10:00] acetaminophen 500 mg tablet 1,000 mg (2 x 500 mg) PO Q6H PRN PRN Pain Score 1-5 #0 tabs 07/27/23 [Rx Last Taken Unknown] apixaban 5 mg tablet (Eliquis) 5 mg PO BID blood thinner 30 days #60 tabs 07/27/23 [Rx Last Taken 08/26/23 10:00] pantoprazole 40 mg tablet,delayed release 40 mg PO DAILY #30 tabs 08/29/23 [Rx Last Taken Unknown] melatonin 3 mg tablet 3 mg PO HS PRN sleep 10/18/23 [History Last Taken Unknown] prednisone 5 mg tablet 5 mg PO DAILY 10/18/23 [History Last Taken Unknown] colestipol 1 gram tablet (Colestid) 1 g PO BID #30 tabs 10/25/23 [Rx Last Taken Unknown] dicyclomine 10 mg capsule 10 mg PO BID PRN abdominal pain #30 caps 10/25/23 [Rx Last Taken Unknown] diphenoxylate-atropine 2.5 mg-0.025 mg tablet (Lomotil) 1 tab PO TID PRN diarrhea #30 tabs 11/01/23 [Rx Last Taken Unknown] ferrous sulfate 325 mg (65 mg iron) tablet (FeroSul) 325 mg PO QODAY 11/02/23 [History Last Taken Unknown] ondansetron HCl 8 mg tablet 8 mg PO Q8H PRN nausea and vomiting 11/02/23 [History Last Taken Unknown] potassium chloride 20 mEq tablet,extended release(part/cryst) 20 meq PO BID 11/02/23 [History Last Taken Unknown] Allergy/AdvReac Type Severity Reaction Status Date / Time Sulfa (Sulfonamide Allergy Severe Swelling Verified 11/02/23 17:40 Antibiotics) amoxicillin AdvReac Severe Diarrhea Verified 11/02/23 17:40 sulfamethoxazole AdvReac Severe Anaphylaxis Verified 11/02/23 17:40 [From Bactrim] trimethoprim [From Bactrim] AdvReac Severe Swelling Verified 11/02/23 17:40 Family History Brother Alcoholism Asthma Myocardial infarction, Onset Age: 52 Seizures Skin cancer Sister CVA (cerebral vascular accident) Asthma Grandfather Asthma Father Myocardial infarction, Onset Age: 46 Had at age 46 & 62 Mother Myocardial infarction, Onset Age: 82 Surgical History History of amputation of finger History of cataract surgery History of eye surgery History of right hip replacement History of total left hip replacement Social History household members: spouse Smoking Status: Former smoker Tobacco: How many years used: 30 how long ago did patient quit smokin years ago second hand exposure: No alcohol intake: current alcohol intake frequency: holidays/special occasions only Alcohol type: wine substance use type: does not use amy/jew: None seatbelt use: always ROS <HERBER El - Last Filed: 11/02/23 21:32> ROS ED Constitutional Constitutional ED: Denies chills or fever(s) Cardiovascular Cardiovascular: Denies chest pain or palpitations Respiratory/Chest Respiratory/Chest: Denies cough or dyspnea Gastrointestinal Gastrointestinal: Reports diarrhea, nausea and vomiting; Denies abdominal pain or melena Genitourinary Genitourinary ED: Denies dysuria, hematuria or urinary urgency Musculoskeletal Musculoskeletal: Denies arthralgias or myalgias Integumentary Denies Abrasions Neurologic Neurologic: Denies weakness EXAM <HERBER El - Last Filed: 11/02/23 21:32> Physical Exam Const Vital Signs: 11/02/23 17:40 11/02/23 17:46 11/02/23 18:45 Temperature 97.7 F L Temperature Source Oral Pulse Rate 99 105 H Respiratory Rate 18 15 Respiratory Effort Normal Non-Labored Respiratory Pattern Normal Blood Pressure 146/97 H 168/69 H Blood Pressure Mean 113 102 Pulse Ox 99 100 Oxygen Delivery Method Room Air Room Air 11/02/23 19:24 11/02/23 20:00 11/02/23 21:00 Temperature 98.8 F 99.3 F H Temperature Source Oral Oral Pulse Rate 111 H 118 H 119 H Respiratory Rate 14 14 15 Respiratory Effort Respiratory Pattern Blood Pressure 122/97 H 167/81 H 174/81 H Blood Pressure Mean 105 109 112 Pulse Ox 97 95 97 Oxygen Delivery Method Room Air Room Air Room Air Positive well nourished, well developed and no apparent distress General Appearance ED: well developed HEENT Reports normocephalic and head/scalp atraumatic Mouth ED: Yes moist mucous membranes normal Eyes PERRL and EOMs intact bilaterally Neck full ROM and supple Chest Wall inspection of chest normal Resp normal respiratory effort and clear to auscultation bilaterally Cardio regular rate and regular rhythm GI soft to palpation, non-tender, non-distended and no masses Back/Spine normal ROM and normal to inspection Extremity normal to inspection and full ROM Neuro oriented x3, CN's II-XII intact bilaterally, moves all extremities, no focal motor deficits and no sensory deficits noted Sensorium / Orientation: awake and alert Psych mental status grossly normal and thought process normal Skin no rashes or lesions noted and no wounds <Dr. Vladislav Dick DO - Last Filed: 11/02/23 22:15> Physical Exam Const Vital Signs: 11/02/23 17:40 11/02/23 17:46 11/02/23 18:45 Temperature 97.7 F L Temperature Source Oral Pulse Rate 99 105 H Respiratory Rate 18 15 Respiratory Effort Normal Non-Labored Respiratory Pattern Normal Blood Pressure 146/97 H 168/69 H Blood Pressure Mean 113 102 Pulse Ox 99 100 Oxygen Delivery Method Room Air Room Air 11/02/23 19:24 11/02/23 20:00 11/02/23 21:00 Temperature 98.8 F 99.3 F H Temperature Source Oral Oral Pulse Rate 111 H 118 H 119 H Respiratory Rate 14 14 15 Respiratory Effort Respiratory Pattern Blood Pressure 122/97 H 167/81 H 174/81 H Blood Pressure Mean 105 109 112 Pulse Ox 97 95 97 Oxygen Delivery Method Room Air Room Air Room Air [facility] <Liliya Edge PA - Last Filed: 11/02/23 21:32> [facility] Narrative Medical decision making narrative: Patient presenting due to nausea, vomiting, diarrhea, and a syncopal episode that occurred today. I suspect that the syncope is likely vasovagal. 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 Recent history of C. difficile, however she did do a stool study last week that was negative. I will try to obtain a stool study here given her worsening diarrhea. Labs will be obtained she will be given IV fluids and Zofran. Head CT will be obtained given the head injury and her being on Eliquis. On reexamination, patient is tachycardic around 120 bpm, she was given additional IV fluids as well as p.o. potassium. The nurse did attempt to ambulate the patient and patient was very weak, she held onto both her and the nurse and was only able to walk a few feet before having to sit back down on the bed. She reports that she is nervous to go home given her weakness and difficulty ambulating. She does continue to be tachycardic despite additional fluids. I will speak with the hospitalist for admission. She will be admitted in stable condition and is comfortable with plan. Lab Data Attestation: I reviewed the patient's lab results. Lab results narrative: WBC 11.6, Potassium 2.9 Labs: Laboratory Results - last 24 hr 11/02/23 17:15 WBC 11.6 H RBC 4.38 Hgb 11.8 L Hct 37.6 MCV 85.8 MCH 26.9 L MCHC 31.4 L RDW Std Deviation 40.3 RDW Coeff of Lynn 12.9 Plt Count 275 MPV 10.2 Immature Gran % (Auto) 0.400 Neut % (Auto) 83.7 H Lymph % (Auto) 10.1 L Wilkes % (Auto) 5.3 Eos % (Auto) 0.3 Baso % (Auto) 0.2 Absolute Neuts (auto) 9.7 H Absolute Lymphs (auto) 1.18 Nucleated RBC % 0 Sodium 140 Potassium 2.9 L Chloride 106 Carbon Dioxide 26.0 Anion Gap 8 BUN 10 Creatinine 0.89 Estim Creat Clear Calc 50.34 Est GFR (MDRD) Af Amer 79 Est GFR (MDRD) Non-Af 65 BUN/Creatinine Ratio 11.2 Glucose 111 H Calcium 9.3 Total Bilirubin 0.50 AST 21 ALT 22 Alkaline Phosphatase 75 Total Protein 7.0 Albumin 3.3 Globulin 3.7 Albumin/Globulin Ratio 0.9 Radiography Diagnostic Testing: Clinical Impression(s) from Imaging Studies Brain CT 11/02/23 18:29 IMPRESSION: There are no acute findings. Electronically Signed: Erasmo Lewis MD at 19:44 EST Reading Location ID and State: [facility] / [place] , Service support , EKG Initial EKG: Comments: 102 bpm, sinus tachycardia, no ST elevation, reviewed and interpreted by attending ED physician <Dr. Vladislav Dick, DO - Last Filed: 11/02/23 22:15> [facility] Narrative Medical decision making narrative: Patient presenting due to nausea, vomiting, diarrhea, and a syncopal episode that occurred today. I suspect that the syncope is likely vasovagal. 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 Recent history of C. difficile, however she did do a stool study last week that was negative. I will try to obtain a stool study here given her worsening diarrhea. Labs will be obtained she will be given IV fluids and Zofran. Head CT will be obtained given the head injury and her being on Eliquis. On reexamination, patient is tachycardic around 120 bpm, she was given additional IV fluids as well as p.o. potassium. The nurse did attempt to ambulate the patient and patient was very weak, she held onto both her and the nurse and was only able to walk a few feet before having to sit back down on the bed. She reports that she is nervous to go home given her weakness and difficulty ambulating. She does continue to be tachycardic despite additional fluids. I will speak with the hospitalist for admission. She will be admitted in stable condition and is comfortable with plan. Attending note: Patient seen and evaluated with discharge planner. I perform my own [id number] evaluation. I agree with the plan of work-up. Syncopal episode on the commode. She is dry heaving she has had chronic diarrhea over the past few months. She has no abdominal pain. Similar symptoms in past without syncopal episode. She fell off the commode forward hitting head on the wall. She is on Eliquis. Denies headache or neck pain. Exam no focal deficit off abdomen. Tachycardic on exam. Mild dry mucosal membranes. Labs were drawn, EKG was sinus tachycardia. CT brain obtained and negative. Labs with potassium 2.9. Oral replacement was given. Creatinine 0.89. She given IV fluids. Heart rate continues to be tachycardic cardiac. She is on Eliquis and compliant therefore lower suspicion for any PE. Attempted to ambulate however she is too weak. Discussed with hospitalist for admission. Lab Data Labs: Laboratory Results - last 24 hr 11/02/23 17:15 WBC 11.6 H RBC 4.38 Hgb 11.8 L Hct 37.6 MCV 85.8 MCH 26.9 L MCHC 31.4 L RDW Std Deviation 40.3 RDW Coeff of Lynn 12.9 Plt Count 275 MPV 10.2 Immature Gran % (Auto) 0.400 Neut % (Auto) 83.7 H Lymph % (Auto) 10.1 L Wilkes % (Auto) 5.3 Eos % (Auto) 0.3 Baso % (Auto) 0.2 Absolute Neuts (auto) 9.7 H Absolute Lymphs (auto) 1.18 Nucleated RBC % 0 Sodium 140 Potassium 2.9 L Chloride 106 Carbon Dioxide 26.0 Anion Gap 8 BUN 10 Creatinine 0.89 Estim Creat Clear Calc 50.34 Est GFR (MDRD) Af Amer 79 Est GFR (MDRD) Non-Af 65 BUN/Creatinine Ratio 11.2 Glucose 111 H Calcium 9.3 Total Bilirubin 0.50 AST 21 ALT 22 Alkaline Phosphatase 75 Total Protein 7.0 Albumin 3.3 Globulin 3.7 Albumin/Globulin Ratio 0.9 Radiography Diagnostic Testing: Clinical Impression(s) from Imaging Studies Brain CT 11/02/23 18:29 IMPRESSION: There are no acute findings. Electronically Signed: Erasmo Lewis MD at 19:44 EST Reading Location ID and State: [facility] / [place] , Service support , Discharge Plan Dx/Rx/DC Orders Clinical Impression: Diarrhea, Nausea & vomiting, Metastatic melanoma, Hypokalemia, Syncope, Weakness Disposition Disposition: Acute Care [facility]
--- NOTE | 2023-11-02 18:29 | CT_ITS ---
STUDY: CT BRAIN WITHOUT CONTRAST REASON FOR EXAM: Female, 78 years old. head injury Individualized dose optimization techniques were used for this CT. TECHNIQUE: Transaxial CT imaging of the brain was performed without administration of intravenous contrast material. COMPARISON: 08/28/2023 FINDINGS: There are calcifications around the carotid artery. These are noted in the cavernous carotid arteries. Normal calvarium. Normal soft tissues. There is mild cerebral atrophy with widening of the extra-axial spaces and ventricular dilatation. There are areas of decreased attenuation within the white matter tracts of the supratentorial brain, consistent with microvascular disease changes. Normal basal ganglia and thalami. Normal brainstem. There is mild cerebellar atrophy. There is no intracranial hemorrhage. There are no findings of an acute ischemic infarction. Normal visualized paranasal sinuses. ASPECTS Score for Acute Strokes: 06/05 CT/Brain/Head without Contrast IMPRESSION: There are no acute findings. Electronically Signed: Erasmo Lewis MD at 19:44 EST ,
[2023-11-02 18:32] LABS: Absolute Lymphocyte Count 1.18 X10^3/uL (0.83-4.51); Absolute Neutrophil Count 9.7 X10^3/uL (2.0-7.7); Basophil# 0.02 X10^3/uL; Basophil% 0.2 % (0-1); Eosinophil# 0.03 X10^3/uL; Eosinophils% 0.3 % (0-5); Hematocrit 37.6 % (37-47); Hemoglobin 11.8 g/dL (12.0-15.0); Lymphocyte # 1.18 X10^3/ul (0.83-4.51); Lymphocyte % 10.1 % (19-41); Mean Corp Hgb Conc 31.4 g/dL (32-36); Mean Corpuscular Hgb 26.9 pg (27.0-32.0); Mean Corpuscular Volume 85.8 fL (81-99); Mean Platelet Vol. 10.2 fl (6.2-12.0); Monocyte# 0.62 X10^3/uL; Monocyte% 5.3 % (0-10); NRBC Flagged by Analyzer 0 % (0-5); Neutrophil # 9.73 X10^3/uL (2.7-7.7); Neutrophil % 83.7 % (47-70); Platelet Count 275 K/mm3 (150-450); RBC Distribution Width CV 12.9 % (11.6-14.6); RBC Distribution Width SD 40.3 fl (35.1-43.9); Red Blood Count 4.38 M/mm3 (4.2-5.4); White Blood Count 11.6 K/mm3 (4.4-11.0)
[2023-11-02] MEDS: 0.9% Normal Saline (1000mL) 1,000 ML 1000 ML IV (18:43)
[2023-11-02] MEDS: Ondansetron 4 MG/2 ML Vial IV (18:43)
[2023-11-02 18:54] LABS: ALB/GLOB Ratio 0.9 RATIO (0.9-2.4); AST(SGOT) 21 U/L (15-37); Alanine Aminotransfer ALT/SGPT 22 U/L (13-56); Albumin, Serum 3.3 g/dL (3.2-5.0); Alkaline Phosphatase 75 U/L (45-117); Anion Gap 8 (5-15); BUN 10 mg/dL (7-18); BUN/Creat Ratio 11.2 RATIO (10-20); Calcium,Total 9.3 mg/dL (8.5-10.1); Chloride 106 mmol/L (98-107); Creatinine, Serum 0.89 mg/dL (0.55-1.02); EST Glomerular Filtration Rate 65 mL/min (>60); Est Glom Filt Rate - Afr Amer 79 mL/min (>60); Estimated Creatinine Clearance 50.34 ml/min; Globulin 3.7 g/dL (2.2-4.2); Glucose 111 mg/dL (74-106); Potassium 2.9 mmol/L (3.5-5.1); Sodium Level 140 mmol/L (136-145)
[2023-11-02] MEDS: Potassium Chloride Oral Tablet 20 MEQ 40 MEQ PO (20:13)
[2023-11-02] MEDS: 0.9% Normal Saline (500mL Bag) 500 ML 999 ML IV (20:14)
--- NOTE | 2023-11-02 21:27 | PCM.HP.STD ---
HPI - General General Date of Admission: 11/02/23 Date of Service: 11/02/23 Chief Complaint: N/V/D, syncopal event. HPI Narrative The patient is a 78 y/o F w/ PMHx: Chronic anemia, Adrenal Insufficiency, Hx Metastatic melanoma, Hx Immunotherapy related colitis, Hx C.difficile colitis, HTN, HLD, GERD, Hx GI bleed, Hx VTE on eliquis who presents to the [facility] ED on 11/02/23 with history of onset of nausea, emesis, abdominal cramping with diarrhea with unfortunate syncopal event occurring on day of presentation with GEN malaise and fatigue with lightheadedness while she had been using the toilet unfortunately falling forward and hitting her forehead against the wall on Eliquis therapy secondary to recent history of pulmonary embolism with history of metastatic melanoma with immunotherapy associated with colitis requiring high-dose steroid usage with issues ongoing battling intermittent diarrhea since May with history however of C. difficile colitis previously prompting ED evaluation. She denies any recent fevers or chills or URI type symptoms. Workup in the ED included T97.7, heart rate 99, heart rate 105, BP 146/97 with most recent repeat 168/69, respiratory rate 18, 99% on room air, CBC with WBC 11.6, hemoglobin 11.8, MCV 85.8, platelet 275 with left shift, CMP with potassium 2.9, glucose 111 otherwise unremarkable, CT of the brain with no acute intracranial findings, EKG ST without acute evidence of ischemia. In the ED patient ministered 2 L normal saline, potassium chloride 40 mEq x 1 as well as Zofran 4 mg IV x 1. [facility] Medical History Adrenal insufficiency Anemia Anticoagulated Bilateral pulmonary embolism COVID-19 Duodenal mass Essential hypertension Former smoker GERD (gastroesophageal reflux disease) History of immunosuppression therapy History of steroid therapy Hyperlipidemia Left leg DVT 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 Mild cognitive impairment Myeloma Polyneuropathy Post-menopausal Pulmonary emboli Seizures Home Medications metoprolol succinate 50 mg tablet,extended release 24 hr 50 mg PO DAILY heart rate ##0 08/15/20 [Rx Last Taken 08/26/23 10:00] atorvastatin 40 mg tablet 40 mg PO DAILY cholesterol 09/24/20 [History Last Taken 08/26/23 10:00] lisinopril 20 mg tablet 20 mg PO DAILY blood pressure 07/13/23 [History Last Taken 08/26/23 10:00] acetaminophen 500 mg tablet 1,000 mg (2 x 500 mg) PO Q6H PRN PRN Pain Score 1-5 #0 tabs 07/27/23 [Rx Last Taken Unknown] apixaban 5 mg tablet (Eliquis) 5 mg PO BID blood thinner 30 days #60 tabs 07/27/23 [Rx Last Taken 08/26/23 10:00] pantoprazole 40 mg tablet,delayed release 40 mg PO DAILY #30 tabs 08/29/23 [Rx Last Taken Unknown] melatonin 3 mg tablet 3 mg PO HS PRN sleep 10/18/23 [History Last Taken Unknown] prednisone 5 mg tablet 5 mg PO DAILY 10/18/23 [History Last Taken Unknown] colestipol 1 gram tablet (Colestid) 1 g PO BID #30 tabs 10/25/23 [Rx Last Taken Unknown] dicyclomine 10 mg capsule 10 mg PO BID PRN abdominal pain #30 caps 10/25/23 [Rx Last Taken Unknown] diphenoxylate-atropine 2.5 mg-0.025 mg tablet (Lomotil) 1 tab PO TID PRN diarrhea #30 tabs 11/01/23 [Rx Last Taken Unknown] ferrous sulfate 325 mg (65 mg iron) tablet (FeroSul) 325 mg PO QODAY 11/02/23 [History Last Taken Unknown] ondansetron HCl 8 mg tablet 8 mg PO Q8H PRN nausea and vomiting 11/02/23 [History Last Taken Unknown] potassium chloride 20 mEq tablet,extended release(part/cryst) 20 meq PO BID 11/02/23 [History Last Taken Unknown] Allergy/AdvReac Type Severity Reaction Status Date / Time Sulfa (Sulfonamide Allergy Severe Swelling Verified 11/02/23 17:40 Antibiotics) amoxicillin AdvReac Severe Diarrhea Verified 11/02/23 17:40 sulfamethoxazole AdvReac Severe Anaphylaxis Verified 11/02/23 17:40 [From Bactrim] trimethoprim [From Bactrim] AdvReac Severe Swelling Verified 11/02/23 17:40 Family History Brother Alcoholism Asthma Myocardial infarction, Onset Age: 52 Seizures Skin cancer Sister CVA (cerebral vascular accident) Asthma Grandfather Asthma Father Myocardial infarction, Onset Age: 46 Had at age 46 & 62 Mother Myocardial infarction, Onset Age: 82 Surgical History History of amputation of finger History of cataract surgery History of eye surgery History of right hip replacement History of total left hip replacement Social History household members: spouse Smoking Status: Former smoker Tobacco: How many years used: 30 how long ago did patient quit smokin years ago second hand exposure: No alcohol intake: current alcohol intake frequency: holidays/special occasions only Alcohol type: wine substance use type: does not use amy/mu-ism: None seatbelt use: always ROS ROS Narrative Admission Review of Systems: CONSTITUTIONAL: No weight loss, fever, chills, + weakness or fatigue. HEENT: + LH/dizziness. Eyes: No visual loss, blurred vision, double vision or yellow sclerae. Ears, Nose, Throat: No hearing loss, sneezing, congestion, runny nose or sore throat. SKIN: No rash or itching, lesions, wounds. CARDIOVASCULAR: + Chronic peripheral edema, LH, dizziness, syncope. No chest pain, chest pressure or chest discomfort, palpitations, orthopnea. RESPIRATORY: No shortness of breath, cough or sputum, wheezing, hemoptysis. GASTROINTESTINAL: + anorexia, nausea, vomiting, diarrhea. No marked abdominal pain, melena, BRBPR. GENITOURINARY: No dysuria, frequency, urgency or retention. NEUROLOGICAL: + BL LE generalized weakness, debility, chart history of seizure history not on AEDs. No headache, dizziness, syncope, paralysis, ataxia, numbness or tingling in the extremities, focal weakness, change in bowel or bladder control, seizure. MUSCULOSKELETAL: + muscle, back pain, joint pain or stiffness. HEMATOLOGIC: + anemia, easy bleeding/bruising. LYMPHATICS: No enlarged nodes. No history of splenectomy. PSYCHIATRIC: No history of depression or anxiety. ENDOCRINOLOGIC: No reports of sweating, cold or heat intolerance. No polyuria or polydipsia. ALLERGIES: + History of anaphylaxis. Vital Signs Vital Signs Vital Signs: 11/02/23 17:40 11/02/23 17:46 11/02/23 18:45 Temperature 97.7 F L Temperature Source Oral Pulse Rate 99 105 H Respiratory Rate 18 15 Respiratory Effort Normal Non-Labored Respiratory Pattern Normal Blood Pressure 146/97 H 168/69 H Blood Pressure Mean 113 102 Pulse Ox 99 100 Oxygen Delivery Method Room Air Room Air 11/02/23 19:24 Temperature 98.8 F Temperature Source Oral Pulse Rate 111 H Respiratory Rate 14 Respiratory Effort Respiratory Pattern Blood Pressure 122/97 H Blood Pressure Mean 105 Pulse Ox 97 Oxygen Delivery Method Room Air Weight Weight: 153 lb 10.595 oz Body Mass Index (BMI) 24.7 Physical Exam Narrative Physical Examination: General: Awake, alert, oriented x 3 and cooperative, seated upright in the ED bed, fatigued appearing. Skin: Normal color, normal turgor, no icterus, no cyanosis except for occasional staged ecchymoses, abrasion. HEENT: AT/NC, EOMI, PERRLA, dry MM, no carotid bruits or JVD noted. Lungs: Diminished, greater bases, proper effort, no rales, ronchi or wheezing. Heart: Mildly tachycardic with regular rhythm; no gallop, rub audible. Abdomen: Soft, NTTP, no rebound or guarding, no marked distention, hyperactive BS, mild SM. Extremities: No cyanosis, no clubbing, mild peripheral nonpitting edema. Neurological: Patient awake, alert, oriented as noted, cognitive function currently baseline intact, pupils equally reactive to light and accommodation, cranial nerves II-XII grossly normal, moving all 4 extremities, no focal deficits, strength severely globally decreased. Psychiatric: Affect appears flat, fatigued, no acute evidence of depressive or anxiety feelings. Results Lab / Micro Data 11/02/23 17:15 11/02/23 17:15 Labs: Laboratory Results - last 24 hr 11/02/23 17:15: WBC 11.6 H, RBC 4.38, Hgb 11.8 L, Hct 37.6, MCV 85.8, MCH 26.9 L, MCHC 31.4 L, RDW Std Deviation 40.3, RDW Coeff of Lynn 12.9, Plt Count 275, MPV 10.2, Immature Gran % (Auto) 0.400, Neut % (Auto) 83.7 H, Lymph % (Auto) 10.1 L, Mayes % (Auto) 5.3, Eos % (Auto) 0.3, Baso % (Auto) 0.2, Absolute Neuts (auto) 9.7 H, Absolute Lymphs (auto) 1.18, Nucleated RBC % 0, Sodium 140, Potassium 2.9 L, Chloride 106, Carbon Dioxide 26.0, Anion Gap 8, BUN 10, Creatinine 0.89, Estim Creat Clear Calc 50.34, Est GFR (MDRD) Af Amer 79, Est GFR (MDRD) Non-Af 65, BUN/Creatinine Ratio 11.2, Glucose 111 H, Calcium 9.3, Total Bilirubin 0.50, AST 21, ALT 22, Alkaline Phosphatase 75, Total Protein 7.0, Albumin 3.3, Globulin 3.7, Albumin/Globulin Ratio 0.9 Imaging Radiology Impression Brain CT 11/02/23 18:29 IMPRESSION: There are no acute findings. Electronically Signed: Erasmo Lewis MD at 19:44 EST Reading Location ID and State: [facility] / [place] , Service support , Assessment & Plan Assessment/Plan (1) Nausea & vomiting: (2) Diarrhea: PLAN: Plan The patient is a 78 y/o F w/ PMHx: Chronic anemia, Adrenal Insufficiency, Hx Metastatic melanoma, Hx Immunotherapy related colitis, Hx C.difficile colitis, HTN, HLD, GERD, Hx GI bleed, Hx VTE on eliquis who presents to the [facility] ED on 11/02/23 with history of onset of nausea, emesis, abdominal cramping with diarrhea with unfortunate syncopal event occurring on day of presentation with GEN malaise and fatigue with lightheadedness while she had been using the toilet unfortunately falling forward and hitting her forehead against the wall on Eliquis therapy secondary to recent history of pulmonary embolism with history of metastatic melanoma with immunotherapy associated with colitis requiring high-dose steroid usage with issues ongoing battling intermittent diarrhea since May with history however of C. difficile colitis previously prompting ED evaluation. #1. Syncopal event (suspect secondary to GI losses and also possible vasovagal) with recent history N/V/D, Possible Gastroenteritis complicated by history of immunotherapy related colitis as well as C. difficile colitis, unclear specific etiology currently: Will admit to medical surgical floor, will maintain on fall precautions, will obtain orthostatic vital signs to be cautious, continue aggressive hydration, will obtain c diff, stool cx, O+P with repeat AM CBC, will continue patient oral vancomycin; however, will increase to 500 mg and transition to 4x/daily from BID until studies result, will initiate on lactobacillus regimen as additionally, will not start antibiotics especially given C. difficile colitis history, will continue low-dose steroid regimen given history of immunotherapy related colitis but awaiting evaluation as noted below for guaiac given hemoglobin decreased since earlier in the day, full respiratory viral panel also pending to be cautious as well as procalcitonin. Anti-emetics, pain regimen PRN. PT/OT/case management consulted for discharge planning. #2. Acute on Chronic normocytic anemia/iron deficiency anemia, possible lab variation however does have a history of previous GI bleed: Admission hemoglobin 11.8, MCV 85.8, baseline previously noted 9-10 although vacillated down to 8.8, most recently 11/02/2019 410.7 however repeat is noted upon current presentation later in the day 11.8, guaiac requested although patient denying any history of black stools or bright red blood in her stools but she is anticoagulated, continue PPI, if any indication of bleed will obtain type and screen, transition to clear liquids with n.p.o. status at midnight, transition to IV PPI and request GI evaluation with hold on oral anticoagulant. Continue oral iron supplementation. If stool studies unremarkable add antidiarrheal regimen. #3. Hypokalemia: Admission K+ 2.9, magnesium level requested, supplementation given, repeat level in AM. #4. Chart reported history adrenal insufficiency: Noted upcoming planned evaluation at [facility] for adrenal insufficiency, currently only on steroids with history of immunotherapy related colitis, encourage patient to continue planned follow-up evaluation outpatient. #5. History of VTE: Patient with history DVT, PE, will continue patient home Eliquis therapy, recent vascular surgery evaluation 11/01/2023 for follow-up for IVC filter placement secondary to history of prior PE with acute GI bleed which eventually ceased and has been back on Eliquis with oncology recommendation to proceed with filter to be cautious. #6. History of immunotherapy related colitis: Previously on high-dose steroids, transition to low-dose prednisone, will continue cautiously. #7. History of C. difficile colitis: will continue patient oral vancomycin; however, will increase to 500 mg and transition to 4x/daily from BID until studies result. She had recent outpatient recheck c-diff assessment that she is reporting as negative. Stool studies pending as noted above. Adding lactobacillis. #8. Metastatic melanoma: Patient with history of immunotherapy unfortunately causing as noted colitis requiring high-dose steroid, encourage continued outpatient follow-up with oncology as previously arranged. #9. Hypertension: Continue home regimen including metoprolol, lisinopril with hold parameters as needed, PRN hydralazine. #10. Hyperlipidemia: We will continue patient on statin therapy. #11. GERD w/ history prior GI bleed: We will continue patient on PPI given ongoing evaluation as noted but if recurrent cdiff positive testing may need to consider transitioning off. #12. DVT prophylaxis: Will cautiously continue Eliquis pending #2 evaluation as noted. #13. CODE status: Patient HCPOA is her who is present and living will is currently in place. Discussed CODE status at length including difference between FULL code, DNR-CCA and DNR-CC status. Following discussions about the differences in these status, requested Full Code status. Advanced Care Planning Face to Face Time: 16 minutes. Charges/Coding Visit Charges Inpatient E&M: 87582 Init Hosp L3 Procedures Hospitalists Procedures: 54035 Advncd Care Plan 30 Min
--- NOTE | 2023-11-02 21:57 | ED.RN ---
Attempted to ambulate pt with 2 assists, pt unsteady, did not tolerate well. Heart rate 130's immediately after attempted ambulation.
[2023-11-02 23:27] LABS: Magnesium 1.6 mg/dL (1.6-2.6); Phosphorus 3.9 mg/dL (2.5-4.9)
[2023-11-02] MEDS: 0.9% Normal Saline (1000mL) 1,000 ML 100 ML IV (23:50)
[2023-11-03] MEDS: APIXABAN 5 MG TABLET PO (00:29)
[2023-11-03] MEDS: Potassium Chloride Oral Tablet 20 MEQ PO ×3 (00:29→22:28)
[2023-11-03] MEDS: 0.9% Normal Saline (500mL Bag) 500 ML 999 ML IV (00:29)
[2023-11-03] MEDS: Vancomycin HCl 250 MG Capsule 500 MG PO ×3 (00:30→22:28)
[2023-11-03 00:41] LABS: Procalcitonin 0.15 ng/mL (0.00-0.09)
[2023-11-03 06:00] VITALS: BMI 23.6
[2023-11-03 06:02] VITALS: BP 134/74; PULSE 90; RESP 18; TEMP 37.2; O2SAT 93
[2023-11-03 06:35] LABS: Absolute Lymphocyte Count 1.15 X10^3/uL (0.83-4.51); Absolute Neutrophil Count 2.8 X10^3/uL (2.0-7.7); Basophil# 0.01 X10^3/uL; Basophil% 0.2 % (0-1); Eosinophil# 0.02 X10^3/uL; Eosinophils% 0.5 % (0-5); Hematocrit 32.2 % (37-47); Hemoglobin 10.1 g/dL (12.0-15.0); Lymphocyte # 1.15 X10^3/ul (0.83-4.51); Lymphocyte % 26.3 % (19-41); Mean Corp Hgb Conc 31.4 g/dL (32-36); Mean Corpuscular Hgb 27.1 pg (27.0-32.0); Mean Corpuscular Volume 86.3 fL (81-99); Mean Platelet Vol. 9.4 fl (6.2-12.0); Monocyte# 0.35 X10^3/uL; NRBC Flagged by Analyzer 0 % (0-5); Neutrophil # 2.84 X10^3/uL (2.7-7.7); Platelet Count 219 K/mm3 (150-450); RBC Distribution Width CV 12.9 % (11.6-14.6); RBC Distribution Width SD 40.7 fl (35.1-43.9); Red Blood Count 3.73 M/mm3 (4.2-5.4); White Blood Count 4.4 K/mm3 (4.4-11.0)
[2023-11-03 07:08] LABS: ALB/GLOB Ratio 0.8 RATIO (0.9-2.4); AST(SGOT) 15 U/L (15-37); Alanine Aminotransfer ALT/SGPT 18 U/L (13-56); Albumin, Serum 2.6 g/dL (3.2-5.0); Alkaline Phosphatase 62 U/L (45-117); Anion Gap 6 (5-15); BUN 7 mg/dL (7-18); BUN/Creat Ratio 8.8 RATIO (10-20); Chloride 115 mmol/L (98-107); EST Glomerular Filtration Rate 74 mL/min (>60); Est Glom Filt Rate - Afr Amer 90 mL/min (>60); Estimated Creatinine Clearance 56.01 ml/min; Globulin 3.1 g/dL (2.2-4.2); Glucose 87 mg/dL (74-106); Potassium 3.5 mmol/L (3.5-5.1); Protein, Total 5.7 g/dL (6.4-8.2); Sodium Level 143 mmol/L (136-145)
[2023-11-03 07:34] VITALS: O2SAT 97
[2023-11-03 08:53] VITALS: BP 143/66; PULSE 95; RESP 16; TEMP 37.6; O2SAT 93
[2023-11-03 08:55] VITALS: PULSE 95
[2023-11-03] MEDS: predniSONE 5 MG Tablet PO (08:55)
[2023-11-03] MEDS: Pantoprazole Sodium 40 MG Tablet PO (08:55)
[2023-11-03] MEDS: Metoprolol(XL)Succ 50 MG Tablet PO (08:55)
[2023-11-03] MEDS: Lisinopril 20 MG Tablet PO (08:55)
--- NOTE | 2023-11-03 13:04 | PCM.PN.HOSP ---
Reason for Visit Reason for Visit: Diagnoses Nausea with vomiting, unspecified (11/02/23) Diarrhea, unspecified (11/02/23) Subjective Subjective Patient presented yesterday evening with nausea, vomiting, diarrhea and a syncopal episode during the day. Was suspected that she had a vasovagal syncopal episode, but she reported continued weakness with ongoing diarrhea, and given her recent complex medical history she was admitted for further evaluation. Patient has fairly complex recent medical history. She has a history of metastatic melanoma and had been on immunotherapy, follows with Dr. Palma. She was hospitalized in June 2023 and diagnosed with a pulmonary embolism. Had very large clot burden and was placed on anticoagulation at that time. She was then diagnosed with chemotherapy related colitis from infliximab in early July 2023 and was placed on high-dose steroids. She was then hospitalized at [facility] from 08/26 to 08/29, presented at that time with intractable nausea and vomiting and inability to tolerate p.o. intake. GI followed and EGD showed normal esophagus and stomach except for a mass protruding through the pylorus of the stomach causing a ball-valve effect. Patient tolerated a full liquid diet with progression to soft diet prior to discharge. She was again hospitalized at [facility] from 09/01 to 09/07 for worsening abdominal pain with diarrhea. She was found to have C. difficile colitis, was treated with IV Flagyl while inpatient and full course of oral vancomycin. She is also found to repeat EGD on 09/04 to have a duodenal mass with biopsy results consistent with an adenomatous polyp, and had subsequent repeat EGD on 09/06 with complete removal of the duodenal mass/adenoma. Patient was also noted to have worsening anemia during hospitalization concerning for slow blood loss while on Eliquis and had IVC filter placed on 09/06. The IVC filter was placed for short-term protection given her significant DVT clot burden and she then resumed Eliquis shortly after discharge. Patient seen at bedside this morning. She was fatigued appearing but otherwise laying comfortably in bed, conversing normally and in no acute distress. She reported continued diarrhea this morning, somewhat improved from yesterday. Last episode was about 1 hour prior to my interview with her. She denied any nausea or vomiting this morning but reported that she had not eaten breakfast yet this morning. She otherwise denied any fevers or chills, chest pain, shortness of breath, abdominal pain or discomfort. No other acute concerns. Objective Data Objective Data Vital Signs: Vital Signs Temp Pulse Resp BP Pulse Ox O2 Del Method 99.6 F H 95 16 143/66 H 93 Room Air 11/03/23 08:53 11/03/23 08:55 11/03/23 08:53 11/03/23 08:53 11/03/23 08:53 11/03/23 08:53 Oxygen Delivery Method Room Air Weight: 66.7 kg Body Mass Index (BMI) 23.6 Intake & Output: Intake and Output for Last 24 Hours 11/01/23 11/02/23 11/03/23 23:59 23:59 23:59 Intake Total 1700 / 1800 2500.00 / 2500.00 Balance 1700 / 1800 2500.00 / 2500.00 Lab / Micro Data 11/03/23 06:19 11/03/23 06:19 Labs: Laboratory Results - last 24 hr 11/02/23 17:15: WBC 11.6 H, RBC 4.38, Hgb 11.8 L, Hct 37.6, MCV 85.8, MCH 26.9 L, MCHC 31.4 L, RDW Std Deviation 40.3, RDW Coeff of Lynn 12.9, Plt Count 275, MPV 10.2, Immature Gran % (Auto) 0.400, Neut % (Auto) 83.7 H, Lymph % (Auto) 10.1 L, Nobles % (Auto) 5.3, Eos % (Auto) 0.3, Baso % (Auto) 0.2, Absolute Neuts (auto) 9.7 H, Absolute Lymphs (auto) 1.18, Nucleated RBC % 0, Sodium 140, Potassium 2.9 L, Chloride 106, Carbon Dioxide 26.0, Anion Gap 8, BUN 10, Creatinine 0.89, Estim Creat Clear Calc 50.34, Est GFR (MDRD) Af Amer 79, Est GFR (MDRD) Non-Af 65, BUN/Creatinine Ratio 11.2, Glucose 111 H, Calcium 9.3, Phosphorus 3.9, Magnesium 1.6, Total Bilirubin 0.50, AST 21, ALT 22, Alkaline Phosphatase 75, Total Protein 7.0, Albumin 3.3, Globulin 3.7, Albumin/Globulin Ratio 0.9 11/02/23 23:59: Procalcitonin 0.15 H 11/03/23 06:19: WBC 4.4, RBC 3.73 L, Hgb 10.1 L, Hct 32.2 L, MCV 86.3, MCH 27.1, MCHC 31.4 L, RDW Std Deviation 40.7, RDW Coeff of Lynn 12.9, Plt Count 219, MPV 9.4, Immature Gran % (Auto) 0.000, Neut % (Auto) 65.0, Lymph % (Auto) 26.3, Nobles % (Auto) 8.0, Eos % (Auto) 0.5, Baso % (Auto) 0.2, Absolute Neuts (auto) 2.8, Absolute Lymphs (auto) 1.15, Nucleated RBC % 0, Sodium 143, Potassium 3.5, Chloride 115 H, Carbon Dioxide 22.0, Anion Gap 6, BUN 7, Creatinine 0.80, Estim Creat Clear Calc 56.01, Est GFR (MDRD) Af Amer 90, Est GFR (MDRD) Non-Af 74, BUN/Creatinine Ratio 8.8 L, Glucose 87, Calcium 8.0 L, Total Bilirubin 0.60, AST 15, ALT 18, Alkaline Phosphatase 62, Total Protein 5.7 L, Albumin 2.6 L, Globulin 3.1, Albumin/Globulin Ratio 0.8 L Micro: Microbiology 11/03/23 06:20 Stool Enteric Bacteriology - Final 11/03/23 06:20 Stool Clostridioides difficile (PCR) - Final 11/03/23 06:20 Stool Stool Occult Blood (MARQUES) - Final Occult Blood Positive 11/02/23 23:55 Mucosa - Nasopharyngeal Respiratory Panel (PCR) - Final Radiography Diagnostic Testing: Radiology Impression Brain CT 11/02/23 18:29 IMPRESSION: There are no acute findings. Electronically Signed: Erasmo Lewis MD at 19:44 EST , Physical Exam Const alert, oriented x3, no apparent distress and average body habitus Constitutional Narrative: Pleasant elderly female, fatigued appearing but otherwise laying comfortably in bed, conversing normally, in no acute distress. General Appearance: cooperative and comfortable HEENT normocephalic, head/scalp atraumatic, hearing grossly normal bilaterally, nasal mucous membranes and turbinates normal and moist oral mucous membranes Eyes PERRL, EOMs intact bilaterally and conjunctivae normal Neck full ROM Chest inspection of chest normal Resp normal respiratory effort, normal air movement, no use of accessory muscles and clear to auscultation bilaterally Cardio regular rate, regular rhythm, no murmurs and peripheral pulses 2+ throughout GI normal to inspection, nondistended, normoactive bowel sounds, soft to palpation, non-tender and non-distended Back/Spine normal ROM Extremity normal to inspection and no pedal edema Skin no rashes or lesions noted Neuro moves all extremities and no focal motor deficits Speech: speech normal Psych mental status grossly normal Assessment & Plan Assessment/Plan (1) Weakness: (2) Diarrhea: PLAN: Plan Patient is a 78-year-old female who presented to [facility] ED on 11/02/2023 with multiple concerns including nausea/vomiting, ongoing diarrhea, syncopal episode at home and debility. 1. Syncopal episode with recent nausea/vomiting and recurrent diarrhea ? Suspected the patient had vasovagal syncopal episode in setting of volume depletion from nausea/vomiting and diarrhea. ? Has complex history as noted in subjective of note on 11/02 and as noted below. ? Was increased from home p.o. vancomycin twice daily to therapeutic vancomycin on admission given concern for recurrent C. difficile. Stool PCR panel and C. difficile negative on 11/02 ? GI consulted for additional recommendations regarding her ongoing diarrhea. Resumed p.o. vancomycin twice daily dosing on 11/02. Okay to resume home Lomotil as needed. 2. Weakness ? Notably has required TCU admission as well as several weeks of home health care since her various health concerns that started in June 2023. Had just completed home health care prior to this admission per her report. ? PT/OT/case management following. Suspect SNF placement versus home with home health care on discharge. 3. Hypokalemia ? Presumed secondary to GI losses. Potassium 2.9 on admit, magnesium 1.6. Replete as needed. 4. Chronic anemia, history of recent GI bleed ? Hemoglobin 10.7 on admit, repeat hemoglobin 10.1 on hospital day 2. Baseline hemoglobin 9-11. ? Monitor CBC daily. GI consulted as noted above. 5. Recent history of DVT/PE; recent IVC filter placement ? Diagnosed with DVT/PE in June 2023. IVC filter placed during hospitalization in August. Saw Dr. Ceja in the office on 10/31, unclear if she had IVC filter removed at that time or if plan is for IVC removal soon. 6. History of metastatic melanoma with immunotherapy related colitis ? Follows with Dr. Palma. 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 Appears that she is on prednisone 5 mg daily now, will continue this. 7. Recent history of C. difficile colitis ? Diagnosed during hospitalization in August. Treated with IV Flagyl and p.o. vancomycin. Saw Dr. Antonio in the office on 10/16, started probiotic twice daily and apparently continued on p.o. vancomycin twice daily. Will continue p.o. vancomycin twice daily for now as noted above. 8. Recent history of duodenal tubular adenoma resection ? Had duodenal mass causing gastric outlet obstruction in August. Resected during EGD on 09/06. Per Dr. Antonio on 10/16, patient reported resolution of nausea/vomiting and was able to eat a regular diet without issue. 9. Reported history of adrenal insufficiency ? Unclear per history. Continue prednisone 5 mg daily as noted above. Chronic medical conditions: ? Hypertension: Continue home Toprol and lisinopril. ? Hyperlipidemia: Continue home statin. ? GERD: Continue home PPI. DVT prophylaxis: Eliquis CODE STATUS: Full code, verified Expected disposition: Home with home health care versus SNF, 2 to 3 days Total clinical time spent by myself addressing the patient's medical issues, reviewing all the data, and collaborating with patient's care team: 35 minutes. Charges/Coding Visit Charges Inpatient E&M: 91443 Subs Hosp L2
--- NOTE | 2023-11-03 15:49 | CASEMGMT ---
RN CM in to discuss ARCH[employer]ALD form with patient. RN CM explained ARCH[employer]ALD form, patient voiced understanding. Pt signed form and filed in chart. Pt provided with a copy of signed ARCHIBALD form. Patient had no further questions or concerns at this time. Irma Whitfield MSN, RN, CCM
--- NOTE | 2023-11-03 15:50 | CASEMGMT ---
RN CM spoke with pt about DC planning and [facility]. Pt reports that she was just recently DC from [facility] and has been going to OP therapy at [facility] ER. Pt reports she wants to continue with OP therapy at this time. Irma GUERRERO, RN, CCM
[2023-11-03 16:05] VITALS: BP 133/54; PULSE 73; RESP 18; TEMP 37.1; O2SAT 96
[2023-11-03 22:00] VITALS: BP 141/63; PULSE 75; RESP 18; TEMP 37; O2SAT 98
[2023-11-03] MEDS: Colestipol 1 GM TABLET PO (22:28)
[2023-11-03] MEDS: MELATONIN 3 MG TABLET PO (22:28)
[2023-11-03] MEDS: Atorvastatin Calcium 40 MG Tablet PO (22:28)
[2023-11-04 04:22] VITALS: BP 144/74; PULSE 70; RESP 18; TEMP 36.7; O2SAT 98
[2023-11-04 06:00] VITALS: BMI 24.4
[2023-11-04 07:57] VITALS: O2SAT 95
[2023-11-04 08:07] LABS: Hematocrit 29.7 % (37-47); Hemoglobin 9.4 g/dL (12.0-15.0); Mean Corp Hgb Conc 31.6 g/dL (32-36); Mean Corpuscular Hgb 26.7 pg (27.0-32.0); Mean Corpuscular Volume 84.4 fL (81-99); Mean Platelet Vol. 9.4 fl (6.2-12.0); Platelet Count 195 K/mm3 (150-450); RBC Distribution Width CV 12.8 % (11.6-14.6); RBC Distribution Width SD 38.7 fl (35.1-43.9); Red Blood Count 3.52 M/mm3 (4.2-5.4); White Blood Count 3.7 K/mm3 (4.4-11.0)
[2023-11-04 08:32] LABS: Anion Gap 3 (5-15); BUN 3 mg/dL (7-18); BUN/Creat Ratio 5.2 RATIO (10-20); Calcium,Total 8.4 mg/dL (8.5-10.1); Chloride 115 mmol/L (98-107); Creatinine, Serum 0.58 mg/dL (0.55-1.02); EST Glomerular Filtration Rate 108 mL/min (>60); Est Glom Filt Rate - Afr Amer 130 mL/min (>60); Estimated Creatinine Clearance 56.01 ml/min; Glucose 85 mg/dL (74-106); Potassium 3.3 mmol/L (3.5-5.1); Sodium Level 141 mmol/L (136-145)
[2023-11-04] MEDS: Pantoprazole Sodium 40 MG Tablet PO (09:18)
[2023-11-04 09:19] VITALS: PULSE 76
[2023-11-04] MEDS: Metoprolol(XL)Succ 50 MG Tablet PO (09:19)
[2023-11-04] MEDS: Colestipol 1 GM TABLET PO (09:19)
[2023-11-04] MEDS: Vancomycin HCl 250 MG Capsule 500 MG PO (09:19)
[2023-11-04] MEDS: Lisinopril 20 MG Tablet PO (09:20)
[2023-11-04] MEDS: predniSONE 5 MG Tablet PO (09:21)
[2023-11-04] MEDS: Potassium Chloride Oral Tablet 20 MEQ PO ×2 (09:24→22:35)
[2023-11-04 09:35] VITALS: BP 136/59; PULSE 76; RESP 16; TEMP 36.8; O2SAT 97
--- NOTE | 2023-11-04 11:58 | CON.PCM.GI_ITS ---
HPI Consult Data Date of Consult: 11/05/23 HPI Narrative Reason for Consultation: Diarrhea HPI Narrative: MISTI HUERTA, is a 78 F who presents to the ED after having a syncopal event at home. Her past medical history is positive for adrenal Insufficiency, Hx Metastatic melanoma, Hx Immunotherapy related colitis, Hx C.difficile colitis, , Hx VTE on eliquis who presents to the [facility] ED on 11/02/23. Her chief complaint was the sudden onset of nausea, emesis, abdominal cramping with diarrhea with unfortunate syncopal event occurring on day of presentation with GEN malaise and fatigue with lightheadedness while she had been using the toilet unfortunately falling forward and hitting her forehead against the wall on Eliquis therapy secondary to recent history of pulmonary embolism with history of metastatic melanoma with immunotherapy associated with colitis requiring high-dose steroid usage with issues ongoing battling intermittent diarrhea since May with history however of C. difficile colitis previously prompting ED evaluation. She denies any recent fevers or chills or URI type symptoms. Workup in the ED included T97.7, heart rate 99, heart rate 105, BP 146/97 with most recent repeat 168/69, respiratory rate 18, 99% on room air, CBC with WBC 11.6, hemoglobin 11.8, MCV 85.8, platelet 275 with left shift, CMP with potassium 2.9, glucose 111 otherwise unremarkable, CT of the brain with no acute intracranial findings, EKG ST without acute evidence of ischemia. She is currently on low-dose steroid for adrenal insufficiency. She did well with steroids in the hospital at a higher dosage. She called the office because she was having worsening diarrhea and we have started her on vancomycin and anticipation of putting her back on a high-dose steroid regimen. This was the plan while her inflammatory bowel disease and refractory colitis workup was pending. We tried scheduled Lomotil, dicyclomine, cholestyramine and colestipol without any resolution to her loose stools. Her diet is not the same at this time. She denies any chest pain or shortness of breath. [facility], [facility] Medical History Adrenal insufficiency Anemia Anticoagulated Bilateral pulmonary embolism COVID-19 Duodenal mass Essential hypertension Former smoker GERD (gastroesophageal reflux disease) History of immunosuppression therapy History of steroid therapy Hyperlipidemia Left leg DVT 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 Mild cognitive impairment Myeloma Polyneuropathy Post-menopausal Pulmonary emboli Seizures Home Medications metoprolol succinate 50 mg tablet,extended release 24 hr 50 mg PO DAILY heart rate ##0 08/15/20 [Rx Last Taken 08/26/23 10:00] atorvastatin 40 mg tablet 40 mg PO DAILY cholesterol 09/24/20 [History Last Taken 08/26/23 10:00] lisinopril 20 mg tablet 20 mg PO DAILY blood pressure 07/13/23 [History Last Taken 08/26/23 10:00] acetaminophen 500 mg tablet 1,000 mg (2 x 500 mg) PO Q6H PRN PRN Pain Score 1-5 #0 tabs 07/27/23 [Rx Last Taken Unknown] apixaban 5 mg tablet (Eliquis) 5 mg PO BID blood thinner 30 days #60 tabs 07/27/23 [Rx Last Taken 08/26/23 10:00] pantoprazole 40 mg tablet,delayed release 40 mg PO DAILY #30 tabs 08/29/23 [Rx Last Taken Unknown] melatonin 3 mg tablet 3 mg PO HS PRN sleep 10/18/23 [History Last Taken Unknown] prednisone 5 mg tablet 5 mg PO DAILY 10/18/23 [History Last Taken Unknown] colestipol 1 gram tablet (Colestid) 1 g PO BID #30 tabs 10/25/23 [Rx Last Taken Unknown] dicyclomine 10 mg capsule 10 mg PO BID PRN abdominal pain #30 caps 10/25/23 [Rx Last Taken Unknown] diphenoxylate-atropine 2.5 mg-0.025 mg tablet (Lomotil) 1 tab PO TID PRN diarrhea #30 tabs 11/01/23 [Rx Last Taken Unknown] ferrous sulfate 325 mg (65 mg iron) tablet (FeroSul) 325 mg PO QODAY 11/02/23 [History Last Taken Unknown] ondansetron HCl 8 mg tablet 8 mg PO Q8H PRN nausea and vomiting 11/02/23 [History Last Taken Unknown] potassium chloride 20 mEq tablet,extended release(part/cryst) 20 meq PO BID 11/02/23 [History Last Taken Unknown] Allergy/AdvReac Type Severity Reaction Status Date / Time Sulfa (Sulfonamide Allergy Severe Swelling Verified 11/02/23 17:40 Antibiotics) amoxicillin AdvReac Severe Diarrhea Verified 11/02/23 17:40 sulfamethoxazole AdvReac Severe Anaphylaxis Verified 11/02/23 17:40 [From Bactrim] trimethoprim [From Bactrim] AdvReac Severe Swelling Verified 11/02/23 17:40 Family History Brother Alcoholism Asthma Myocardial infarction, Onset Age: 52 Seizures Skin cancer Sister CVA (cerebral vascular accident) Asthma Grandfather Asthma Father Myocardial infarction, Onset Age: 46 Had at age 46 & 62 Mother Myocardial infarction, Onset Age: 82 Surgical History History of amputation of finger History of cataract surgery History of eye surgery History of right hip replacement History of total left hip replacement Social History household members: spouse Smoking Status: Former smoker Tobacco: How many years used: 30 how long ago did patient quit smokin years ago second hand exposure: No alcohol intake: current alcohol intake frequency: holidays/special occasions only Alcohol type: wine substance use type: does not use amy/rastafari: None seatbelt use: always ROS ROS Narrative Admission Review of Systems: CONSTITUTIONAL: No weight loss, fever, chills, + weakness or fatigue. HEENT: + LH/dizziness. Eyes: No visual loss, blurred vision, double vision or yellow sclerae. Ears, Nose, Throat: No hearing loss, sneezing, congestion, runny nose or sore throat. SKIN: No rash or itching, lesions, wounds. CARDIOVASCULAR: + Chronic peripheral edema, LH, dizziness, syncope. No chest pain, chest pressure or chest discomfort, palpitations, orthopnea. RESPIRATORY: No shortness of breath, cough or sputum, wheezing, hemoptysis. GASTROINTESTINAL: + anorexia, nausea, vomiting, diarrhea. No marked abdominal pain, melena, BRBPR. GENITOURINARY: No dysuria, frequency, urgency or retention. NEUROLOGICAL: + BL LE generalized weakness, debility, chart history of seizure history not on AEDs. No headache, dizziness, syncope, paralysis, ataxia, numbness or tingling in the extremities, focal weakness, change in bowel or bladder control, seizure. MUSCULOSKELETAL: + muscle, back pain, joint pain or stiffness. HEMATOLOGIC: + anemia, easy bleeding/bruising. LYMPHATICS: No enlarged nodes. No history of splenectomy. PSYCHIATRIC: No history of depression or anxiety. ENDOCRINOLOGIC: No reports of sweating, cold or heat intolerance. No polyuria or polydipsia. ALLERGIES: + History of anaphylaxis. Physical Exam Narrative Physical Examination: General: Awake, alert, oriented x 3 and cooperative, seated upright in the ED bed, fatigued appearing. Skin: Normal color, normal turgor, no icterus, no cyanosis except for occasional staged ecchymoses, abrasion. HEENT: AT/NC, EOMI, PERRLA, dry MM, no carotid bruits or JVD noted. Lungs: Diminished, greater bases, proper effort, no rales, ronchi or wheezing. Heart: Mildly tachycardic with regular rhythm; no gallop, rub audible. Abdomen: Soft, NTTP, no rebound or guarding, no marked distention, hyperactive BS, mild SM. Extremities: No cyanosis, no clubbing, mild peripheral nonpitting edema. Neurological: Patient awake, alert, oriented as noted, cognitive function currently baseline intact, pupils equally reactive to light and accommodation, c ranial nerves II-XII grossly normal, moving all 4 extremities, no focal deficits, strength severely globally decreased. Psychiatric: Affect appears flat, fatigued, no acute evidence of depressive or a nxiety feelings. Lab / Micro Data 11/04/23 07:55 11/04/23 07:55 Labs: Laboratory Results - last 24 hr 11/04/23 07:55: WBC 3.7 L, RBC 3.52 L, Hgb 9.4 L, Hct 29.7 L, MCV 84.4, MCH 26.7 L, MCHC 31.6 L, RDW Std Deviation 38.7, RDW Coeff of Lynn 12.8, Plt Count 195, MPV 9.4, Sodium 141, Potassium 3.3 L, Chloride 115 H, Carbon Dioxide 23.0, Anion Gap 3 L, BUN 3 L, Creatinine 0.58, Estim Creat Clear Calc 56.01, Est GFR (MDRD) Af Amer 130, Est GFR (MDRD) Non-Af 108, BUN/Creatinine Ratio 5.2 L, Glucose 85, Calcium 8.4 L Micro: Microbiology 11/03/23 06:20 Stool Enteric Bacteriology - Final 11/03/23 06:20 Stool Clostridioides difficile (PCR) - Final 11/03/23 06:20 Stool Stool Occult Blood (MARQUES) - Final Occult Blood Positive Assessment & Plan Assessment/Plan (1) Metabolic encephalopathy: (2) C. difficile colitis: (3) Weakness: (4) Abdominal pain: QUALIFIERS: Abdominal location: generalized Qualified Code(s): R10.84 - Generalized abdominal pain (5) Diarrhea: QUALIFIERS: Diarrhea type: presumed infectious Qualified Code(s): R19.7 - Diarrhea, unspecified (6) Duodenal mass: PLAN: Plan Diarrhea -C. difficile is negative -She had previously been treated with IV Flagyl and add oral vancomycin given her history of immunosuppression -We did transition to oral vancomycin at discharge for total treatment day of 14 days--> day 1 of 14 -She was recently restarted on vancomycin -Also differential diagnosis is immune therapy induced diarrhea which can last for 3 to 6 months and can also induce inflammatory bowel disease. I am not sure if she is actually having diarrhea secondary to immunotherapy induced diarrhea or she is having postinfectious diarrhea from recent C. difficile infection. I would recommend repeat CT scan abdomen pelvis. I will increase her steroids to more therapeutic dose for immunotherapy induced colitis. We are waiting autoimmune workup. -IV fluid is p.o. intake has been poor -Hemoccult positive stools -that was suggested there is elements of ischemic colitis due to the cramping Recommendation: -Hold vancomycin -Methylprednisolone 40 mg once a day -Increase colestipol to 2 g p.o. twice daily -Check ESR and CRP -Await autoimmune workup -Schedule Benty every 8 hours l to prevent cramping as needed -She did well with benzodiazepine to treat postinfectious diarrhea. I will start that twice a day. Charges/Coding Visit Charges Inpatient E&M: 77991 Init Hosp L3
--- NOTE | 2023-11-04 12:03 | PCM.PN.HOSP ---
Reason for Visit Reason for Visit: Diagnoses Nausea with vomiting, unspecified (11/02/23) Diarrhea, unspecified (11/02/23) Weakness (11/02/23) Subjective Subjective No acute events overnight. Patient seen at bedside this morning. Patient was sitting up comfortably in bedside chair, conversing normally, no acute distress. States that her diarrhea has slowed down significantly since admission, however she notes she has only been on a liquid diet and has not been eating very much. She generally feels like she is close to her baseline again. However, she is frustrated by her continued diarrhea and states so she cannot continue to live like this. States she was very happy with her recent visit with Dr. Antonio but had not yet started the p.o. vancomycin twice daily or Lomotil as needed prior to this admission. She was hoping to see Dr. Antonio during this hospitalization to determine if anything else needed to be done with the regimen prior to discharge. No other acute concerns at this time. Objective Data Objective Data Vital Signs: Vital Signs Temp Pulse Resp BP Pulse Ox O2 Del Method 98.1 F 76 18 144/74 H 95 Room Air 11/04/23 04:22 11/04/23 09:19 11/04/23 04:22 11/04/23 04:22 11/04/23 07:57 11/04/23 07:57 Oxygen Delivery Method Room Air Weight: 69 kg Body Mass Index (BMI) 24.4 Intake & Output: Intake and Output for Last 24 Hours 11/02/23 11/03/23 11/05/23 23:59 23:59 00:59 Intake Total 1700 / 1800 2900.00 / 3450.00 550 / 550 Balance 1700 / 1800 2900.00 / 3450.00 550 / 550 Lab / Micro Data 11/04/23 07:55 11/04/23 07:55 Labs: Laboratory Results - last 24 hr 11/04/23 07:55: WBC 3.7 L, RBC 3.52 L, Hgb 9.4 L, Hct 29.7 L, MCV 84.4, MCH 26.7 L, MCHC 31.6 L, RDW Std Deviation 38.7, RDW Coeff of Lynn 12.8, Plt Count 195, MPV 9.4, Sodium 141, Potassium 3.3 L, Chloride 115 H, Carbon Dioxide 23.0, Anion Gap 3 L, BUN 3 L, Creatinine 0.58, Estim Creat Clear Calc 56.01, Est GFR (MDRD) Af Amer 130, Est GFR (MDRD) Non-Af 108, BUN/Creatinine Ratio 5.2 L, Glucose 85, Calcium 8.4 L Micro: Microbiology 11/03/23 06:20 Stool Enteric Bacteriology - Final 11/03/23 06:20 Stool Clostridioides difficile (PCR) - Final 11/03/23 06:20 Stool Stool Occult Blood (MARQUES) - Final Occult Blood Positive 11/02/23 23:55 Mucosa - Nasopharyngeal Respiratory Panel (PCR) - Final Physical Exam Const alert, oriented x3, no apparent distress and average body habitus Constitutional Narrative: Pleasant elderly female, fatigued appearing but otherwise laying comfortably in bed, conversing normally, in no acute distress. General Appearance: cooperative and comfortable HEENT normocephalic, head/scalp atraumatic, hearing grossly normal bilaterally, nasal mucous membranes and turbinates normal and moist oral mucous membranes Eyes PERRL, EOMs intact bilaterally and conjunctivae normal Neck full ROM Chest inspection of chest normal Resp normal respiratory effort, normal air movement, no use of accessory muscles and clear to auscultation bilaterally Cardio regular rate, regular rhythm, no murmurs and peripheral pulses 2+ throughout GI normal to inspection, nondistended, normoactive bowel sounds, soft to palpation, non-tender and non-distended Back/Spine normal ROM Extremity normal to inspection and no pedal edema Skin no rashes or lesions noted Neuro moves all extremities and no focal motor deficits Speech: speech normal Psych mental status grossly normal Assessment & Plan Assessment/Plan (1) Weakness: (2) Diarrhea: PLAN: Plan Patient is a 78-year-old female who presented to [facility] ED on 11/02/2023 with multiple concerns including nausea/vomiting, ongoing diarrhea, syncopal episode at home and debility. 1. Syncopal episode with recent nausea/vomiting and recurrent diarrhea ? Suspected the patient had vasovagal syncopal episode in setting of volume depletion from nausea/vomiting and diarrhea. ? Has complex history as noted in subjective of note on 11/02 and as noted below. ? Was increased from home p.o. vancomycin twice daily to therapeutic vancomycin on admission given concern for recurrent C. difficile. Stool PCR panel and C. difficile negative on 11/02. ? GI evaluated on 11/03. Hold p.o. vancomycin. Started methylprednisolone 40 mg 2-3 times daily, scheduled Bentyl every 8 hours to prevent cramping and benzodiazepine twice daily to treat postinfectious diarrhea. ESR and CRP ordered. Awaiting further autoimmune workup. CT abdomen pelvis with IV contrast ordered for further evaluation. 2. Weakness ? Notably has required TCU admission as well as several weeks of home health care since her various health concerns that started in June 2023. Had just completed home health care prior to this admission per her report. ? PT/OT/case management following. Planning for home with home health care on discharge. 3. Hypokalemia ? Presumed secondary to GI losses. Potassium 2.9 on admit, magnesium 1.6. Replete as needed. 4. Chronic anemia, history of recent GI bleed ? Hemoglobin 10.7 on admit, repeat hemoglobin 10.1 on hospital day 2. Baseline hemoglobin 9-11. ? Hemoccult positive stool on admit. Per GI, suggested that there was an element of ischemic colitis due to the cramping. ? Monitor CBC daily. 5. Recent history of DVT/PE; recent IVC filter placement ? Diagnosed with DVT/PE in June 2023. IVC filter placed during hospitalization in August. Saw Dr. Ceja in the office on 10/31, plan is to have IVC filter removed soon. Home Eliquis held on admission given anemia as noted above, okay to restart on 11/03. 6. History of metastatic melanoma with immunotherapy related colitis ? Follows with Dr. Palma. 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 Appears that she is on prednisone 5 mg daily now. Started on high-dose steroids per GI on 11/03 as noted above. 7. Recent history of C. difficile colitis ? Diagnosed during hospitalization in August. Treated with IV Flagyl and p.o. vancomycin. Saw Dr. Antoino in the office on 10/16, started probiotic twice daily and apparently continued on p.o. vancomycin twice daily. Holding p.o. vancomycin as noted above. 8. Recent history of duodenal tubular adenoma resection ? Had duodenal mass causing gastric outlet obstruction in August. Resected during EGD on 09/06. Per Dr. Antonio on 10/16, patient reported resolution of nausea/vomiting and was able to eat a regular diet without issue. 9. Reported history of adrenal insufficiency ? Unclear per history. On high-dose steroids as noted above. Chronic medical conditions: ? Hypertension: Continue home Toprol and lisinopril. ? Hyperlipidemia: Continue home statin. ? GERD: Continue home PPI. DVT prophylaxis: Eliquis CODE STATUS: Full code, verified Expected disposition: Home with home health care versus SNF, 2 to 3 days Total clinical time spent by myself addressing the patient's medical issues, reviewing all the data, and collaborating with patient's care team: 35 minutes.
--- NOTE | 2023-11-04 15:26 | CT_ITS ---
STUDY: CT Abdomen And Pelvis W/ Contrast Injection 11/04/2023 7:13 PM REASON FOR EXAM: Female, 78 years old. recurrent diarrhea Individualized dose optimization techniques were used for this CT. COMPARISON: 09.01.23 TECHNIQUE: CT Abdomen And Pelvis W/ Contrast Injection Oral and amp; IV Gastrografin and amp; 100mL [id number] FINDINGS: There are atherosclerotic calcifications of visualized coronary arteries. The visualized portions of the heart are within normal limits. Normal liver. Normal gallbladder and extrahepatic biliary system. Normal spleen. Normal pancreas. Normal bilateral adrenal glands. There are hypodensities in the right kidney. These are consistent for cysts. No follow up required. There are hypodensities in the left kidney. These are consistent for cysts. No follow up required. Normal visualized stomach. Normal small intestine. There are multiple colonic diverticula consistent with diverticulosis. There is liquid stool in the colon. This can suggest a gastroenteritis /diarrhea. Clinical correlation is recommended. There is non-visualization of the appendix. There are calcifications of the abdominal aorta. This is consistent for atherosclerotic disease. There is NO abdominal aortic aneurysm. Vascular workup can be obtained based on clinical correlation. There is an IVC filter in place. Subcentimeter mesenteric lymph nodes. Normal urinary bladder. There is a Grade 1 anterolisthesis of L4 on L5. Total bilateral hip arthroplasty. There is an umbilical hernia containing fat. Normal osseous structures. CT/Abdomen/Pelvis WITH Contrast IMPRESSION: (NOT LISTED IN ORDER OF SIGNIFICANCE) There is liquid stool in the colon. This can suggest a gastroenteritis /diarrhea. Clinical correlation is recommended. Other findings as above. Electronically Signed: Erasmo Lewis MD at 19:17 EDT ,
[2023-11-04 16:11] VITALS: BP 128/59; PULSE 87; RESP 17; TEMP 36.7; O2SAT 94
[2023-11-04] MEDS: predniSONE 20 MG Tablet 40 MG PO (19:39)
[2023-11-04 22:31] VITALS: BP 137/65; PULSE 84; RESP 16; TEMP 36.6; O2SAT 100
[2023-11-04] MEDS: Atorvastatin Calcium 40 MG Tablet PO (22:35)
[2023-11-04] MEDS: APIXABAN 5 MG TABLET PO (22:35)
[2023-11-04] MEDS: Colestipol 1 GM TABLET 2 GM PO (22:35)
[2023-11-05] MEDS: MELATONIN 3 MG TABLET PO (00:23)
[2023-11-05 04:01] VITALS: BP 150/70; PULSE 61; RESP 16; TEMP 36.5; O2SAT 100
[2023-11-05 05:48] VITALS: BMI 24.5
--- NOTE | 2023-11-05 06:55 | PN.GI_ITS ---
Subjective Subjective Patient is doing very well and has not had any diarrhea on the increased dose of colestipol. I DC'd her vancomycin. She has not needed to take the dicyclomine Objective Data Objective Data Vital Signs: Vital Signs Temp Pulse Resp BP Pulse Ox O2 Del Method 97.9 F 66 16 133/62 H 99 Room Air 11/05/23 15:05 11/05/23 15:05 11/05/23 15:05 11/05/23 15:05 11/05/23 15:05 11/05/23 15:05 Oxygen Delivery Method Room Air Weight: 152 lb 8.958 oz Body Mass Index (BMI) 24.5 Intake & Output: Intake and Output for Last 24 Hours 11/03/23 11/04/23 11/05/23 22:59 23:59 23:59 Intake Total 775 / 775 Balance 775 / 775 Lab / Micro Data 11/05/23 07:37 11/05/23 07:37 Labs: Laboratory Results - last 24 hr 11/05/23 07:37: WBC 5.0, RBC 3.81 L, Hgb 10.2 L, Hct 31.7 L, MCV 83.2, MCH 26.8 L, MCHC 32.2, RDW Std Deviation 37.6, RDW Coeff of Lynn 12.6, Plt Count 216, MPV 9.5, Sodium 140, Potassium 3.8, Chloride 111 H, Carbon Dioxide 24.0, Anion Gap 5, BUN 6 L, Creatinine 0.64, Estim Creat Clear Calc 56.01, Est GFR (MDRD) Af Amer 116, Est GFR (MDRD) Non-Af 96, BUN/Creatinine Ratio 9.4 L, Glucose 175 H, Calcium 8.6 Micro: Microbiology 11/03/23 06:20 Stool Enteric Bacteriology - Final 11/03/23 06:20 Stool Clostridioides difficile (PCR) - Final 11/03/23 06:20 Stool Stool Occult Blood (MARQUES) - Final Occult Blood Positive 11/02/23 23:55 Mucosa - Nasopharyngeal Respiratory Panel (PCR) - Final Radiography Diagnostic Testing: Radiology Impression Abdomen/Pelvis CT 11/04/23 15:26 IMPRESSION: (NOT LISTED IN ORDER OF SIGNIFICANCE) There is liquid stool in the colon. This can suggest a gastroenteritis /diarrhea. Clinical correlation is recommended. Other findings as above. Electronically Signed: Erasmo Lewis MD at 19:17 EDT , Physical Exam Narrative Patient states she ate well last evening and ate her breakfast without problem. Got up with therapy and did quite well. Anxious to go home if we think she stable to do so. Const alert, oriented x3, no apparent distress, average body habitus and no limitations Constitutional Narrative: Older, white female, sitting up in chair at the bedside, appears comfortable and nontoxic General Appearance: cooperative, comfortable, well kempt and well developed Orientation / Consciousness: awake, oriented to person, oriented to place and oriented to time Exam Limitations: no limitations HEENT normocephalic, head/scalp atraumatic, hearing grossly normal bilaterally and moist oral mucous membranes HEENT Narrative: Mallampati 2, no thrush Eyes PERRL, EOMs intact bilaterally and conjunctivae normal Eyes Narrative: No scleral icterus Neck no lymphadenopathy and supple Neck Narrative: Trachea midline, no thyroid enlargement Resp normal respiratory effort, no retractions, no use of accessory muscles and clear to auscultation bilaterally Auscultation: Negative for rales, rhonchi or wheezes Cardio regular rate, regular rhythm, S1 normal heart sound, S2 normal heart sound, no murmurs, no rub, no gallops and no clicks GI normal to inspection, nondistended, normoactive bowel sounds, soft to palpation and non-tender Extremity no clubbing, cyanosis or edema Extremity Narrative: Pedal pulses are 2+, nodular area on left elbow Skin no rashes or lesions noted, skin turgor normal and no jaundice Neuro oriented x3, moves all extremities, no focal motor deficits and no sensory deficits noted Neuro Narrative: Mild generalized weakness noted proximal greater than distal Speech: speech normal Psych affect normal Psych Narrative: Eye contact is good, patient interacts appropriately, very pleasant Assessment & Plan Assessment/Plan (1) Weakness: (2) Diarrhea: PLAN: Plan Patient is a 78-year-old female who presented to [facility] ED on 11/02/2023 with multiple concerns including nausea/vomiting, ongoing diarrhea, syncopal episode at home and debility. 1. Syncopal episode with recent nausea/vomiting and recurrent diarrhea ? Suspected the patient had vasovagal syncopal episode in setting of volume depletion from nausea/vomiting and diarrhea. ? Has complex history as noted in subjective of note on 11/02 and as noted below. ? Was increased from home p.o. vancomycin twice daily to therapeutic vancomycin on admission given concern for recurrent C. difficile. Stool PCR panel and C. difficile negative on 11/02. ? GI evaluated on 11/03. Hold p.o. vancomycin. Started methylprednisolone 40 mg 2-3 times daily, scheduled Bentyl every 8 hours to prevent cramping and benzodiazepine twice daily to treat postinfectious diarrhea. ESR and CRP ordered. Awaiting further autoimmune workup. CT abdomen pelvis with IV contrast ordered for further evaluation. 2. Weakness ? Notably has required TCU admission as well as several weeks of home health care since her various health concerns that started in June 2023. Had just completed home health care prior to this admission per her report. ? PT/OT/case management following. Planning for home with home health care on discharge. 3. Hypokalemia ? Presumed secondary to GI losses. Potassium 2.9 on admit, magnesium 1.6. Replete as needed. 4. Chronic anemia, history of recent GI bleed ? Hemoglobin 10.7 on admit, repeat hemoglobin 10.1 on hospital day 2. Baseline hemoglobin 9-11. ? Hemoccult positive stool on admit. Per GI, suggested that there was an element of ischemic colitis due to the cramping. ? Monitor CBC daily. 5. Recent history of DVT/PE; recent IVC filter placement ? Diagnosed with DVT/PE in June 2023. IVC filter placed during hospitalization in August. Saw Dr. Ceja in the office on 10/31, plan is to have IVC filter removed soon. Home Eliquis held on admission given anemia as noted above, okay to restart on 11/03. 6. History of metastatic melanoma with immunotherapy related colitis ? Follows with Dr. Palma. 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 Appears that she is on prednisone 5 mg daily now. Started on high-dose steroids per GI on 11/03 as noted above. 7. Recent history of C. difficile colitis ? Diagnosed during hospitalization in August. Treated with IV Flagyl and p.o. vancomycin. started probiotic twice daily and apparently continued on p.o. vancomycin twice daily. Holding p.o. vancomycin as noted above. 8. Recent history of duodenal tubular adenoma resection ? Had duodenal mass causing gastric outlet obstruction in August. Resected during EGD on 09/06. Per Dr. Antonio on 10/16, patient reported resolution of nausea/vomiting and was able to eat a regular diet without issue. Charges/Coding Visit Charges Inpatient E&M: 66762 Subs Hosp L3
[2023-11-05 07:50] LABS: Hematocrit 31.7 % (37-47); Hemoglobin 10.2 g/dL (12.0-15.0); Mean Corp Hgb Conc 32.2 g/dL (32-36); Mean Corpuscular Hgb 26.8 pg (27.0-32.0); Mean Corpuscular Volume 83.2 fL (81-99); Mean Platelet Vol. 9.5 fl (6.2-12.0); Platelet Count 216 K/mm3 (150-450); RBC Distribution Width CV 12.6 % (11.6-14.6); RBC Distribution Width SD 37.6 fl (35.1-43.9); Red Blood Count 3.81 M/mm3 (4.2-5.4)
[2023-11-05 08:23] LABS: Anion Gap 5 (5-15); BUN 6 mg/dL (7-18); BUN/Creat Ratio 9.4 RATIO (10-20); Calcium,Total 8.6 mg/dL (8.5-10.1); Chloride 111 mmol/L (98-107); Creatinine, Serum 0.64 mg/dL (0.55-1.02); EST Glomerular Filtration Rate 96 mL/min (>60); Est Glom Filt Rate - Afr Amer 116 mL/min (>60); Estimated Creatinine Clearance 56.01 ml/min; Glucose 175 mg/dL (74-106); Potassium 3.8 mmol/L (3.5-5.1); Sodium Level 140 mmol/L (136-145)
[2023-11-05] MEDS: Colestipol 1 GM TABLET 2 GM PO (08:41)
[2023-11-05] MEDS: predniSONE 20 MG Tablet 40 MG PO (08:41)
[2023-11-05 08:42] VITALS: PULSE 62
[2023-11-05] MEDS: APIXABAN 5 MG TABLET PO (08:42)
[2023-11-05] MEDS: Pantoprazole Sodium 40 MG Tablet PO (08:42)
[2023-11-05] MEDS: Potassium Chloride Oral Tablet 20 MEQ PO (08:42)
[2023-11-05] MEDS: Metoprolol(XL)Succ 50 MG Tablet PO (08:42)
[2023-11-05] MEDS: Lisinopril 20 MG Tablet PO (08:43)
[2023-11-05 10:00] VITALS: BP 129/57; PULSE 62; RESP 16; TEMP 36.6; O2SAT 99
--- NOTE | 2023-11-05 11:07 | CASEMGMT ---
SHI WILLIAM Assessment: Face to Face with pt for initial transition planning/care coordination assessment. SHI WILLIAM introduced self and role at [facility], pt voices understanding and consents to assessment. Pt is A&O x4 and answers all questions appropriately at this time. Pt sitting up in chair in no distress. Care providers, pharmacy, and demographics verified/updated. Admitting Dx: syncope, N/V/D PCP:[facility] Specialists:Friend, GI; Masci, onc; Visioni, Financial Services Manager; JANAE Chanel at [facility]; teresa Ceja Preferred Pharmacy: [facility] Insurance: [employer] Prescription Benefit: yes LNOK: Timbo Terry, Living Arrangements: Pt lives with in a two story home with 3 steps to enter with a rail. Pt reports she is I in ADL's but is present for bathing for safety. Pt denies concerns at home. Transportation: Pt does not drive. She states her transports her to medical appts. DME:toilet handrails, shower bench, cane and two walkers, pt does not use AD HHC/SNF: Pt has had [facility] HHC and been to [facility] TCU Pt states no concerns with going home at time of dc. She states she currently is being seen at outpt therapy and she would like to continue this. She denies need for a rx for this. Pt states no further concerns/needs. CM to follow. Advised pt to ask CM if any further question/concerns/needs arise, voices understanding. Pt Goal: Home with outpt therapy resuming Plan: Home with outpt therapy resuming Ping OSULLIVAN CM
--- NOTE | 2023-11-05 11:45 | DS.PCM_ITS ---
Providers Date of Admission: 11/04/23 Date of Discharge: 11/05/23 Primary Care Physician: Dr. Marvin Malloy MD Consultations 11/04/23 10:45 Consult: Gastroenterology Routine Consulting Provider: [facility] Reason for Consult: known to you, chronic diarrhea EMERGENT Consult: No MD Notified: Yes Date Notified: 11/04/23 Time Notified: 11:24 Method of Notification: Text Reason For Visit: SYNCOPE, N/V/D Diagnosis Discharge Diagnosis (1) Metabolic encephalopathy: Status: Acute Code(s): G93.41 - Metabolic encephalopathy (2) C. difficile colitis: Status: Resolved Code(s): A04.72 - Enterocolitis due to Clostridium difficile, not specified as recurrent (3) Weakness: Status: Acute Code(s): R53.1 - Weakness (4) Abdominal pain: Status: Acute Code(s): R10.9 - Unspecified abdominal pain Qualifiers: Abdominal location: generalized Qualified Code(s): R10.84 - Generalized abdominal pain (5) Diarrhea: Status: Acute Code(s): R19.7 - Diarrhea, unspecified Qualifiers: Diarrhea type: presumed infectious Qualified Code(s): R19.7 - Diarrhea, unspecified (6) Duodenal mass: Status: Acute Code(s): K31.89 - Other diseases of stomach and duodenum Medications at Discharge Home Medications metoprolol succinate 50 mg tablet,extended release 24 hr 50 mg PO DAILY heart rate ##0 08/15/20 atorvastatin 40 mg tablet 40 mg PO DAILY cholesterol 09/24/20 lisinopril 20 mg tablet 20 mg PO DAILY blood pressure 07/13/23 acetaminophen 500 mg tablet 1,000 mg (2 x 500 mg) PO Q6H PRN PRN Pain Score 1-5 #0 tabs 07/27/23 apixaban 5 mg tablet (Eliquis) 5 mg PO BID blood thinner 30 days #60 tabs 07/27/23 pantoprazole 40 mg tablet,delayed release 40 mg PO DAILY #30 tabs 08/29/23 melatonin 3 mg tablet 3 mg PO HS PRN sleep 10/18/23 prednisone 5 mg tablet 5 mg PO DAILY 10/18/23 colestipol 1 gram tablet (Colestid) 1 g PO BID #30 tabs 10/25/23 dicyclomine 10 mg capsule 10 mg PO BID PRN abdominal pain #30 caps 10/25/23 diphenoxylate-atropine 2.5 mg-0.025 mg tablet (Lomotil) 1 tab PO TID PRN diarrhea #30 tabs 11/01/23 ferrous sulfate 325 mg (65 mg iron) tablet (FeroSul) 325 mg PO QODAY 11/02/23 ondansetron HCl 8 mg tablet 8 mg PO Q8H PRN nausea and vomiting 11/02/23 potassium chloride 20 mEq tablet,extended release(part/cryst) 20 meq PO BID 11/02/23 Hospital Course Procedures EKG and - (CT brain/CT abdomen and pelvis) Summary of Care Provided Minutes Spent on Discharge: 37 Hospital Course: Mrs. Terry is a 78-year-old female with a history of metastatic melanoma who developed immunotherapy related colitis and then developed C. difficile colitis who has had multiple admissions here recently related to the above. She presented to the emergency department on 11/02/2023 due to an acute onset episode of nausea with vomiting, abdominal cramping and profuse watery diarrhea with a subsequent syncopal episode that followed. Patient reported she was feeling fine prior to this and was walking into the house coming home from running err ands and ran to the toilet at which time she had dry heaving and then felt as if she was going to have a bowel movement. She stated the bowel movement was watery and then she remembers feeling woozy and then passed out. Given her syncopal episode in the prior events her called the emergency department. Workup in the emergency department showed a temperature of 97.7, heart rate was 99, blood pressure was 146/97, respiratory was 18 oxygen saturations were 97% on room air. Her CBC was overall unremarkable. Her chemistry panel showed significant hypokalemia with potassium of 2.9 but was otherwise unremarkable. CT of the brain showed no acute intracranial findings. EKG was unremarkable for any acute findings. She was given 2 L of IV fluids and potassium replacement as well as Zofran admitted to the medical floor. By the morning of 3 9 she was feeling fatigued but overall improved. She did have some continued diarrhea that morning but the volume had decreased. Her nausea and vomiting improved and GI was consulted. Gastroenterology recommended to continue holding vancomycin but started steroids 40 mg daily, increased her colestipol to 2 g p.o. twice daily and immune workup was pursued. ESR and CRP were obtained and found to be relatively normal. Bentyl was also scheduled every 8 hours to prevent cramping. Benzodiazepine was used previously to treat postinfectious diarrhea and she did well with that so this was reinitiated as well. By the a.m. of 11/05/2023 she was eating a regular diet and felt that her strength was back to her baseline. Her diarrhea had resolved and she had no further nausea or vomiting. Her electrolytes had been replaced and her labs w ere stable. She was able to be discharged home in stable condition on 20 mg of prednisone daily, colestipol 2 g p.o. twice daily as well as the scheduled Bentyl. I did hold benzodiazepine prescription at discharge. She is to follow- up with Dr. Antonio in the next 2 to 4 weeks and she indicated he told her that she could have recurrent episodes of this related to her previous immunotherapy mediated diarrhea and GI tract issues. She is following with oncology as an outpatient and has upcoming appointments for further care related to her metastatic melanoma. Patient was able to be discharged home in stable condition on 11/05/2023. New prescriptions were sent to her local pharmacy. I have a dvised her to follow-up with her primary care physician within the next 1 to 2 weeks as able. Discharge diagnoses: Nausea and vomiting-resolved Diarrhea-resolved Abdominal cramping-improved Hypokalemia-resolved History of C. difficile colitis-testing was unremarkable Syncope-vasovagal event suspected Generalized weakness -Continue home therapy services -Chronic anemia-stable History of ischemic colitis History of DVT/PE-filter in place Metastatic melanoma Immunotherapy related colitis History of duodenal tubular adenoma History of adrenal insufficiency Hypertension Hyperlipidemia GERD Physical Exam Narrative Patient states she ate well last evening and ate her breakfast without problem. Got up with therapy and did quite well. Anxious to go home if we think she stable to do so. Const alert, oriented x3, no apparent distress, average body habitus and no limitations Constitutional Narrative: Older, white female, sitting up in chair at the bedside, appears comfortable and nontoxic General Appearance: cooperative, comfortable, well kempt and well developed Orientation / Consciousness: awake, oriented to person, oriented to place and oriented to time Exam Limitations: no limitations HEENT normocephalic, head/scalp atraumatic, hearing grossly normal bilaterally and moist oral mucous membranes HEENT Narrative: Mallampati 2, no thrush Eyes PERRL, EOMs intact bilaterally and conjunctivae normal Eyes Narrative: No scleral icterus Neck no lymphadenopathy and supple Neck Narrative: Trachea midline, no thyroid enlargement Resp normal respiratory effort, no retractions, no use of accessory muscles and clear to auscultation bilaterally Auscultation: Negative for rales, rhonchi or wheezes Cardio regular rate, regular rhythm, S1 normal heart sound, S2 normal heart sound, no murmurs, no rub, no gallops and no clicks GI normal to inspection, nondistended, normoactive bowel sounds, soft to palpation and non-tender Extremity no clubbing, cyanosis or edema Extremity Narrative: Pedal pulses are 2+, nodular area on left elbow Skin no rashes or lesions noted, skin turgor normal and no jaundice Neuro oriented x3, moves all extremities, no focal motor deficits and no sensory deficits noted Neuro Narrative: Mild generalized weakness noted proximal greater than distal Speech: speech normal Psych affect normal Psych Narrative: Eye contact is good, patient interacts appropriately, very pleasant Weight / BMI Weight Weight: 69.2 kg Body Mass Index (BMI) 24.5 ABG / Lab / Microbiology Data 11/05/23 07:37 11/05/23 07:37 Laboratory: Laboratory Results - last 24 hr 11/05/23 07:37: WBC 5.0, RBC 3.81 L, Hgb 10.2 L, Hct 31.7 L, MCV 83.2, MCH 26.8 L, MCHC 32.2, RDW Std Deviation 37.6, RDW Coeff of Lynn 12.6, Plt Count 216, MPV 9.5, Sodium 140, Potassium 3.8, Chloride 111 H, Carbon Dioxide 24.0, Anion Gap 5, BUN 6 L, Creatinine 0.64, Estim Creat Clear Calc 56.01, Est GFR (MDRD) Af Amer 116, Est GFR (MDRD) Non-Af 96, BUN/Creatinine Ratio 9.4 L, Glucose 175 H, Calcium 8.6 Microbiology: Microbiology 11/03/23 06:20 Stool Enteric Bacteriology - Final 11/03/23 06:20 Stool Clostridioides difficile (PCR) - Final 11/03/23 06:20 Stool Stool Occult Blood (MARQUES) - Final Occult Blood Positive 11/02/23 23:55 Mucosa - Nasopharyngeal Respiratory Panel (PCR) - Final Radiography Diagnostic Testing: Radiology Impression Abdomen/Pelvis CT 11/04/23 15:26 IMPRESSION: (NOT LISTED IN ORDER OF SIGNIFICANCE) There is liquid stool in the colon. This can suggest a gastroenteritis /diarrhea. Clinical correlation is recommended. Other findings as above. Electronically Signed: Erasmo Lewis MD at 19:17 EDT Reading Location ID and State: [facility] / [place] , Service support , D/C Instructions Discharge Diet: No restrictions Discharge Activity: Return to Normal Activity Meaningful Use Info Meaningful Use Diagnoses (Choose all that apply): None applicable Discharge Plan Admission Admit Date/Time: 11/04/23 14:48 Primary Reason for Your Visit: Nausea/vomiting/diarrhea/syncope Attending Provider: Ramya Maradiaga Primary Care Provider: Marvin Malloy Consulting Providers: Sima Sanchez; Star Eckert Discharge Orders/Prescriptions Prescriptions: No Action atorvastatin 40 mg tablet 40 mg PO DAILY melatonin 3 mg tablet 3 mg PO HS PRN (Reason: sleep) prednisone 5 mg tablet 5 mg PO DAILY metoprolol succinate 50 MG tablet 50 mg PO DAILY Qty: 0 0RF Rx Instructions: Hold if heart rate less than 60/min lisinopril 20 mg tablet 20 mg PO DAILY acetaminophen 500 mg Tablet 1,000 mg PO Q6H PRN PRN (Reason: Pain Score 1-5) Qty: 0 0RF Eliquis 5 mg Tablet 5 mg PO BID 30 Days Qty: 60 0RF Hold Instructions: Start from 09/08/2023. Discontinue if platelet count drops less than 50,000 or hemoglobin less than 8 g% pantoprazole 40 mg Tablet,Delayed Release (Dr/Ec) 40 mg PO DAILY Qty: 30 0RF ferrous sulfate [FeroSul] 325 mg (65 mg iron) tablet 325 mg PO QODAY Hold Instructions: MD Ordered Patient Comments: TAKE 1 TABLET BY MOUTHEEVERY OTHER DAY potassium chloride 20 mEq tablet,ER particles/crystals 20 meq PO BID Hold Instructions: MD Ordered Patient Comments: TAKE 1 TABLET BY MOUTH 2 TIMES A DAY ondansetron HCl 8 mg tablet 8 mg PO Q8H PRN (Reason: nausea and vomiting) Patient Comments: take 1 tablet by mouth every 8 hours if needed for nausea and vomiting dicyclomine 10 mg capsule 10 mg PO BID PRN (Reason: abdominal pain) Qty: 30 2RF colestipol [Colestid] 1 gram tablet 1 g PO BID Qty: 30 1RF diphenoxylate-atropine [Lomotil] 2.5-0.025 mg tablet 1 tab PO TID PRN (Reason: diarrhea) Qty: 30 3RF Rx Instructions: take one three times a day as needed for diarrhea Referrals / Follow Up: Jason Antonio DO [Med Staff - Active Staff] - Within 2 Weeks (Call for [facility] danna follow-up appointment) Marvin Malloy MD [Primary Care Provider] - Within 2 Weeks Disposition Disposition (needs filled in before D/C Order can be placed): Home, Self Care Charges/Coding Visit Charges Inpatient E&M: 41320 Disch Hosp >30min
--- NOTE | 2023-11-05 12:36 | PHA.DC.MC.R ---
Pharmacy [facility] Service has performed discharge medication reconciliation and counseling for this patient. The patient's discharge medication list was reviewed for discrepancies and discrepancies were resolved. The patient was counseled on the following discharge medications and changes in medications for homegoing were reviewed. The Reason for Use, instructions for use, and potential side effects were reviewed for all new medications. The patient's questions regarding all of their medications were answered. 1. Colestipol 2 grams PO BID 2. Prednisone 20 mg PO daily x 14 days The patient was able to verbally demonstrate an understanding of their discharge medications. Medications at Discharge Home Medications metoprolol succinate 50 mg tablet,extended release 24 hr 50 mg PO DAILY heart rate ##0 08/15/20 atorvastatin 40 mg tablet 40 mg PO DAILY cholesterol 09/24/20 lisinopril 20 mg tablet 20 mg PO DAILY blood pressure 07/13/23 acetaminophen 500 mg tablet 1,000 mg (2 x 500 mg) PO Q6H PRN PRN Pain Score 1-5 #0 tabs 07/27/23 apixaban 5 mg tablet (Eliquis) 5 mg PO BID blood thinner 30 days #60 tabs 07/27/23 pantoprazole 40 mg tablet,delayed release 40 mg PO DAILY #30 tabs 08/29/23 melatonin 3 mg tablet 3 mg PO HS PRN sleep 10/18/23 prednisone 5 mg tablet 5 mg PO DAILY 10/18/23 dicyclomine 10 mg capsule 10 mg PO BID PRN abdominal pain #30 caps 10/25/23 diphenoxylate-atropine 2.5 mg-0.025 mg tablet (Lomotil) 1 tab PO TID PRN diarrhea #30 tabs 11/01/23 ferrous sulfate 325 mg (65 mg iron) tablet (FeroSul) 325 mg PO QODAY 11/02/23 ondansetron HCl 8 mg tablet 8 mg PO Q8H PRN nausea and vomiting 11/02/23 potassium chloride 20 mEq tablet,extended release(part/cryst) 20 meq PO BID 11/02/23 colestipol 1 gram tablet 2 g (2 x 1 gram) PO BID #60 tabs 11/05/23 prednisone 20 mg tablet 20 mg PO DAILY #14 tabs 11/05/23
[2023-11-05 15:05] VITALS: BP 133/62; PULSE 66; RESP 16; TEMP 36.6; O2SAT 99
== END 2023-11-05 15:15 | disposition home or self-care (01) | DRG 391 ==
LOC: ED 21:39 → MS3 11-03 06:54
PROVIDERS: Hospitalist; Physician Assistant; Admitting Provider Family Medicine; Emergency Provider Emergency Medicine; PCP Family Medicine; Visit Provider Internal Medicine
DX: R19.7 Diarrhea, unspecified (principal); G93.41 Metabolic encephalopathy; S09.90XA Unspecified injury of head, initial encounter; C43.9 Malignant melanoma of skin, unspecified; D50.9 Iron deficiency anemia, unspecified; E86.9 Volume depletion, unspecified; I10 Essential (primary) hypertension; E78.5 Hyperlipidemia, unspecified; E87.6 Hypokalemia; K21.9 Gastro-esophageal reflux disease without esophagitis; K31.89 Other diseases of stomach and duodenum; R11.2 Nausea with vomiting, unspecified; W18.12XA Fall from or off toilet with subsequent striking against object, initial encounter; Z82.5 Family history of asthma and other chronic lower respiratory diseases; Z79.01 Long term (current) use of anticoagulants; Z87.891 Personal history of nicotine dependence; Z80.8 Family history of malignant neoplasm of other organs or systems; Z86.16 Personal history of COVID-19; Z79.52 Long term (current) use of systemic steroids; Z86.718 Personal history of other venous thrombosis and embolism; Z86.711 Personal history of pulmonary embolism; R53.1 Weakness; R55 Syncope and collapse; R10.84 Generalized abdominal pain
CPT/HCPCS: 36415; 70450; 74177; 80048; 80053; 82274; 82784; 82785; 83516; 83615; 83735; 84100; 84145; 84165; 84439; 84443; 84481; 85025; 85027; 85652; 86003; 86005; 86036; 86140; 86225; 86235; 86255; 86256; 86334; 86644; 86645; 86671; 87493; 87506; 87633; 93005; 94642; 94668; 97110; 97162; 97166; 97530; 99285; J7030; J7040; J7050; Q9967; J2405

== ENCOUNTER → 2023-11-02 | Outpatient (CLI) | payer MEDICARE, OTHER, SELFPAY ==
[2023-11-02] MEDS: Pentamidine Isethionate 300 MG, Water For Injection,Sterile 6 ML INHALATION (09:40)
[2023-11-02 10:32] LABS: Erythrocyte Sedimentation Rate 10 mm/hr (0-30)
[2023-11-02 10:36] LABS: Absolute Lymphocyte Count 1.49 X10^3/uL (0.83-4.51); Absolute Neutrophil Count 3.9 X10^3/uL (2.0-7.7); Basophil# 0.02 X10^3/uL; Basophil% 0.3 % (0-1); Eosinophil# 0.03 X10^3/uL; Eosinophils% 0.5 % (0-5); Hematocrit 34.3 % (37-47); Hemoglobin 10.7 g/dL (12.0-15.0); Lymphocyte # 1.49 X10^3/ul (0.83-4.51); Lymphocyte % 25.1 % (19-41); Mean Corp Hgb Conc 31.2 g/dL (32-36); Mean Corpuscular Hgb 26.8 pg (27.0-32.0); Mean Platelet Vol. 9.7 fl (6.2-12.0); Monocyte# 0.48 X10^3/uL; Monocyte% 8.1 % (0-10); NRBC Flagged by Analyzer 0 % (0-5); Neutrophil % 65.7 % (47-70); Platelet Count 239 K/mm3 (150-450); RBC Distribution Width CV 12.7 % (11.6-14.6); RBC Distribution Width SD 39.8 fl (35.1-43.9); Red Blood Count 3.99 M/mm3 (4.2-5.4); White Blood Count 5.9 K/mm3 (4.4-11.0)
[2023-11-02 11:39] LABS: ALB/GLOB Ratio 0.9 RATIO (0.9-2.4); AST(SGOT) 17 U/L (15-37); Alanine Aminotransfer ALT/SGPT 18 U/L (13-56); Albumin, Serum 3.1 g/dL (3.2-5.0); Alkaline Phosphatase 61 U/L (45-117); Anion Gap 6 (5-15); BUN 10 mg/dL (7-18); BUN/Creat Ratio 12.3 RATIO (10-20); CRP 4.93 mg/L (0.0-3.0); Calcium,Total 9.2 mg/dL (8.5-10.1); Chloride 108 mmol/L (98-107); Creatinine, Serum 0.82 mg/dL (0.55-1.02); EST Glomerular Filtration Rate 72 mL/min (>60); Est Glom Filt Rate - Afr Amer 88 mL/min (>60); Free T3 3.3 pg/mL (2.18-3.98); Globulin 3.4 g/dL (2.2-4.2); Glucose 88 mg/dL (74-106); LDH 240 U/L (84-246); Potassium 3.1 mmol/L (3.5-5.1); Protein, Total 6.5 g/dL (6.4-8.2); Sodium Level 141 mmol/L (136-145); Thyroid Stim Hormone (TSH) 2.07 uIU/mL (0.358-3.74)
[2023-11-09 00:06] LABS: Anti-Centromere B Ab <0.2 AI (0.0-0.9); Anti-Chromatin <0.2 AI (0.0-0.9); Anti-Jo <0.2 AI (0.0-0.9); Anti-Scleroderma-70 AB <0.2 AI (0.0-0.9); Anti-dsDNA Ab 1 IU/mL (0-9); Beef <0.10 kU/L (Class 0); Chocolate <0.10 kU/L (Class 0); Codfish <0.10 kU/L (Class 0); Corn <0.10 kU/L (Class 0); Egg, Whole <0.10 kU/L (Class 0); Milk (Cow) <0.10 kU/L (Class 0); Mussels <0.10 kU/L (Class 0); Peanut <0.10 kU/L (Class 0); Pork <0.10 kU/L (Class 0); RNP Ab <0.2 AI (0.0-0.9); SJOGREN'S Anti-SS-A test < 0.2 AI (0.0-0.9); SJOGREN'S Anti-SS-B test < 0.2 AI (0.0-0.9); Salmon <0.10 kU/L (Class 0); Shrimp <0.10 kU/L (Class 0); Smith Ab <0.2 AI (0.0-0.9); Soybean <0.10 kU/L (Class 0); Tuna <0.10 kU/L (Class 0); Wheat <0.10 kU/L (Class 0)
[2023-11-09 15:08] LABS: ACCA 10 units (0-90); AMCA 68 units (0-100); Albumin 3.3 g/dL (2.9-4.4); Alpha-1-Globulins 0.2 g/dL (0.0-0.4); Alpha-2-Globulins 0.7 g/dL (0.4-1.0); CMV Acute Antibody IgM < 30.0 AU/mL (0.0-29.9); CMV Antibody IgG > 10.00 U/mL (0.00-0.59); Cytoplasmic Ab (C-ANCA) <1:20 titer (Neg:<1:20); Endomysial Antibody IgA Negative (Negative); Gamma Globulin 0.9 g/dL (0.4-1.8); Immunoglobulin A 132 mg/dL (64-422); Immunoglobulin E 5 IU/mL (6-495); Immunoglobulin G 731 mg/dL (586-1602); Immunoglobulin M 327 mg/dL (26-217); Perinuclear Ab (P-ANCA) <1:20 titer (Neg:<1:20); gASCA 14 units (0-50); t-Transglutaminase IgA <2 U/mL (0-3)
[2023-11-21 14:39] LABS: ALCA 27 units (0-60)
== END | disposition home or self-care (01) ==
PROVIDERS: Internal Medicine Gastroenterology; PCP Family Medicine; Referring Provider Internal Medicine Hematology & Oncology; Visit Provider Internal Medicine Hematology & Oncology
DX: R19.7 Diarrhea, unspecified (principal); C43.9 Malignant melanoma of skin, unspecified; Z79.52 Long term (current) use of systemic steroids
CPT/HCPCS: 36415; 80053; 82784; 82785; 83516; 83615; 84165; 84439; 84443; 84481; 85025; 85652; 86003; 86005; 86036; 86140; 86225; 86235; 86255; 86256; 86334; 86644; 86645; 86671; 94642

== ENCOUNTER 2023-11-15 08:18 | Day surgery (SDC) | payer MEDICARE, OTHER, SELFPAY ==
[2023-11-14 11:22] VITALS: BMI 24.7
--- NOTE | 2023-11-15 11:38 | OP.PCM_ITS ---
Report of Operation Date of Procedure: 11/15/23 Pre-Operative Diagnosis: prior IVC filter Post-Operative Diagnosis: same Surgery/Procedure Performed:: Venogram IVC angioplasty IVC attempted filter retrieval Surgeon: Sanjeev Ceja Type of Anesthesia: Local and Sedation,Conscious Estimated Blood Loss (mL): 15 Description of Procedure: HPI: Patient is a 78-year-old female with previously placed inferior vena cava filter who is now tolerating anticoagulation. She is taken now for filter retrieval. Description of procedure: Upon obtaining form consent and verification correct patient procedure site patient taken to the Bill Checker where she was positioned prepped and draped in usual sterile fashion. Time was performed conscious sedation administered Versed and fentanyl. Skin overlying the left internal jugular vein was anesthetized 1% lidocaine the vessel accessed under ultrasound guidance with micropuncture needle wire. This was exchanged for micropuncture s enzo through which injection venogram was performed revealing satisfactory positioning. Through the micropuncture sheath a J-wire was advanced and efforts made to traverse the innominate, superior vena cava and into the atrium. There is some significant angulation to the vessels and the wire did not advance easily so the micropuncture sheath was then exchanged for a angled glide catheter which was advanced over the wire into the superior vena cava. The J- wire was then exchanged for a Glidewire which was used to navigate across the atrium and into the inferior vena cava. Wire and catheter then advanced into the inferior vena cava adjacent to the filter and hand-injection venacavogram was performed which revealed patent filter with no thrombus present. This also revealed mild to moderate amount of tilt that was noted on the placement imaging. It was felt that this was still amenable to retrieval so a Coulter wire was then advanced through the glide catheter and the catheter exchanged for the [place] filter retrieval system which was then advanced into the vena cava just cephalad to the filter. Using the snare we made multiple efforts to grasp the retrieval hook with no success. The patient did have a small inferior vena cava and the snare did not fully deploy and was caught on the vena cava wall in efforts to snare the hook. Multiple efforts were made including shaping the s nare catheter to angulate towards the hook. The snare was then withdrawn and a 14 mm [place] angioplasty balloon was advanced across the wire and positioned below the filter and then inflated which did straighten the filter however when the balloon was deflated the total returned. Other efforts were made to reposition the filter including using an inflated balloon and a pigtail catheter which all were successfully temporarily straightening the filter but this was lost when the manipulation was released. After extensive efforts it was felt that no further efforts today would be continued and that possible return with access with a larger sheath and using alternative techniques versus combination IJ and femoral approach while the patient was under deeper sedation would be considered. Patient was then taken to the recovery room for bedrest prior to discharge to home.
== END 2023-11-15 13:40 | disposition home or self-care (01) ==
PROVIDERS: PCP Family Medicine; Referring Provider Surgery Trauma Surgery; Visit Provider Surgery Trauma Surgery
DX: I87.1 Compression of vein (principal); Z95.828 Presence of other vascular implants and grafts; Z79.01 Long term (current) use of anticoagulants; Z87.891 Personal history of nicotine dependence; Z86.711 Personal history of pulmonary embolism; Z86.718 Personal history of other venous thrombosis and embolism; E78.5 Hyperlipidemia, unspecified; K21.9 Gastro-esophageal reflux disease without esophagitis; I10 Essential (primary) hypertension; Z86.16 Personal history of COVID-19
CPT/HCPCS: 36010; 37248; 75825; 76937; 99152; 99153; C1769; C1894; C1725; C1773

== ENCOUNTER → 2023-11-30 | Outpatient (CLI) | payer MEDICARE, OTHER, SELFPAY | END | disposition home or self-care (01) | LOC: PSN 09:18 | PROVIDERS: PCP Family Medicine; Referring Provider Internal Medicine Hematology & Oncology; Visit Provider Internal Medicine Hematology & Oncology | DX: C43.9 Malignant melanoma of skin, unspecified (principal) | CPT/HCPCS: 94642 ==

== ENCOUNTER 2023-12-12 12:00 | Outpatient (RCR) | payer MEDICARE, OTHER, SELFPAY ==
--- NOTE | 2023-10-22 08:47 | HP.PTEVAL ---
Patient's Visit Information Visit Information Visit Information: MISTI HUERTA is a 78 year old F referred to Physical Therapy by Dr. Marvin Malloy MD with a diagnosis of BLE weakness. Date of Evaluation: 10/17/23 Physical Therapist: Kevin Candelaria DPT Visit Plan Frequency: 2-3x /Week Duration: 6 Weeks Plan: 1) BLE strengthening, including body weight, bands, progressive resistance. Complete throughout BLEs. 2) static and dynamic balance to improve ability to complete gait without use of AD 3) Gait both for increasing distance, but also progressing to least restrictive AD vs no AD. 4) stair training, reciprocal and with 1 HR. Subjective Subjective: Pt. is here today for her initial evaluation with diagnosis of BLE weakness. Pt. reports having a bout of a few illnesses including metastatic melanoma and colitis. Pt. reports being in and out of hospital stays over the past 4 months. She returned home a few weeks ago. She had gene receiving home health and is now ready for outpatient. Pt. arrives today using FWW. Prior she had not used a device. Pt. has not ventured out of the house much. She reports no falls recently. Pt. was prior to her bouts of illness totally independent. She is able to do all of her basic ADLs without issues. Pt. is not back to driving yet. She is hopeful to increase her strength and endurance in order to get back to all recreational and daily activities without limitations. Objective Objective: POSTURE: Pt. has fairly normal posture in stance. Pt. is able to stand without use of AD, but is very cautious. PALPATION: pt. has no pain with palpation of BLEs or UEs. NEURO: Pt. has normal sensation in BLEs and normal DTR of BLEs. Pt. is able to rise on toes and heels with balance aide. ROM: Pt. has full ROM throughout lumbar spine and BLEs. SLight tightness in B calves and HS. MMT: RLE: ankle 4+/5 throughout; knee: ext 4/5, flexion 4/5; hip: flexion 4-/5, abd 4-/5, ext 4+/5. LLE: ankle 5-/5 throughout; knee: ext 4/5, flexion 4+/5; hip: flexion 4/5, abd 4/5, ext 4+/5. Core strength: poor. GAIT: Pt. ambulates well with use of FWW. Good step length, but cautious. Without AD: Pt. has guarded posture and increased DAVID. Methodical pattern without AD. STAIRS: step to pattern, but loading RLE only with use of BUEs on bars. Pt. unable to complete with just 1 HR. TU.1sec with FWW, 16.8 without AD. 6 MWT: 732feet without AD. FGA: Balance/Special Test Scores Lower Extremity Functional Score: 34 Goals Goal 1:: LTG: Pt. to be I with HEP for LE strengthening and progressing walking program. Goal Time Frame: 4-6 Weeks Goal 2:: LTG: Pt. to be able to ambulate ESTELA with use of SPC for greater than 500' Goal Time Frame: 2-4 Weeks Goal 3:: LTG: Pt. to ambulate without use of AD with normalized gait pattern. Goal Time Frame: 4-6 Weeks Goal 4:: LTG: Pt to complete 6 MWT with distance greater than 1000' with out use of AD. Goal Time Frame: 4-6 Weeks Goal 5:: LTG: Pt. to have increased BLE strength increased to 5/5 throughout. Goal Time Frame: 4-6 Weeks Goal 6:: LTG: Pt. to negotiate 1 flight of steps with 1 HR with reciprocal pattern without LOB. Goal Time Frame: 4-6 Weeks Rehabilitation Potential Physical Therapy Diagnosis: Pt. has signs and symptoms consistent with BLE weakness stemming from prolonged illness. Pt. has marked BLE weakness, decreased endurance and imbalance. Pt. would benefit from PT to address the above limitations progressing back to all recreational and home activities without limitations. Rehabilitation Potential: Excellent Anticipated Interventions Patient/Client Instruction: Educate patient on: Condition, Plan of Care, Risk Factors and Benefits of Fitness Program For the Purpose of:: To improve decision making, To facilitate caregiver knowledge, To improve self management, To prevent re-injury and To improve ability to perform tasks related to life management Therapeutic Exercise to Include: Strength training, Power training, Endurance training, Balance training, Coordination, Body mechanics, Postural training, Flexibilty training and Gait and locomotor training For the Purpose of:: To improve nutrient delivery to tissue, To increase oxygenation perfusion, To improve muscle performance and motor function, To improve ability to perform ADL's, To increase tolerance to activity/condition/position, To decrease level of supervision to perform tasks, To improve ability of physical actions for home/community/work/leisure, To improve gait and locomotor functions, To improve health of tissue and To decrease soft tissue restriction Text: Thank you for the opportunity to evaluate your patient. For Medicare and Medicare HMO plans, please review the plan of care and approve it. It will need to be FAXED BACK to us at [phone] for Medicare purposes. For Medicare only, by signing this I certify the plan of care. Please let me know if there are questions or concerns regarding this plan of care. Physician Signature: Date:
[2023-10-30 01:07] LABS: Calprotectin, Stool 902 ug/g (0-120)
--- NOTE | 2023-11-26 09:44 | HP.PTREVAL_ITS ---
Re-Evaluation Intro: Dr. Marvin Malloy MD, It has been my pleasure to treat MISTI HUERTA over the last 9 visits for BLE weakness. Please see the progress note below for an update on the physical therapy plan of care! Subjective Subjective: Pt reports feeling like PT has been very helpful for her, but she would like to continues strengthening to help with getting up out of chair and getting up off the floor. Objective Objective/Function: Worked on STS from normal chair height, pt demo'd increased fear with ant. weight shift needed to push up to standing. SPT provided cues to lean forward and to keep knees apart when standing which improved performance but pt needed to hold on to something in front of her for peace of mind. Pt had good endurance with 6MWT, but would continue to benefit from overall strengthening and functional stamina training to improve pt independence and safety at home. Plan Plan Plan: 1) BLE strengthening, including body weight, bands, progressive resistance. Complete throughout BLEs. Work on STS with ant weight shift possibly begin adding MB in arms to help shift weight forward 2) static and dynamic balance to improve ability to complete gait without use of AD 3) Floor transfers (pt still somewhat weak in quads) and reaching down for objects on floot 4) Gait both for increasing distance, but also progressing to least restrictive AD vs no AD. 5) stair training, reciprocal and with 1 HR. Balance/Gait/Functional tests Balance/Special Test Scores Lower Extremity Functional Score: 34 Goals Goals Goal 1:: LTG: Pt. to be I with HEP for LE strengthening and progressing walking program. 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 Goal Time Frame: 4-6 Weeks Goal Progress: Progressing Goal 5:: LTG: Pt. to have increased BLE strength increased to 5/5 throughout. Goal Time Frame: 4-6 Weeks Goal Progress: Progressing Goal 6:: LTG: Pt. to negotiate 1 flight of steps with 1 HR with reciprocal pattern without LOB. Goal Time Frame: 4-6 Weeks Goal Progress: Progressing Anticipated Interventions Anticipated Interventions Patient/Client Instruction: Educate patient on: Condition, Plan of Care, Risk Factors and Benefits of Fitness Program For the Purpose of:: To improve decision making, To facilitate caregiver knowledge, To improve self management, To prevent re-injury and To improve ability to perform tasks related to life management Therapeutic Exercise to Include: Strength training, Power training, Endurance training, Balance training, Coordination, Body mechanics, Postural training, Flexibilty training and Gait and locomotor training For the Purpose of:: To improve nutrient delivery to tissue, To increase oxygenation perfusion, To improve muscle performance and motor function, To improve ability to perform ADL's, To increase tolerance to activity/condition/position, To decrease level of supervision to perform tasks, To improve ability of physical actions for home/community/work/leisure, To improve gait and locomotor functions, To improve health of tissue and To decrease soft tissue restriction Re-Evaluation Ending Re-evaluation ending: Please do not hesitate to contact me at [phone] by phone or if you have questions or concerns regarding this new plan of care! Sincerely, Kevin Candelaria DPT
--- NOTE | 2023-12-14 11:46 | HP.PTDCSUM_ITS ---
Discharge Summary D/C summary: It has been my pleasure to treat MISTI HUERTA referred by Dr. Marvin Malloy MD, with the diagnosis of BLE weakness for a total of 16 visit(s). Discharge Date: 12/14/23 Please see the following information for a summary of their discharge status. Subjective Subjective: Pt. reports overall doing well. She still feels like her L hip is not as strong. Pt. pleased with therapy thus far. Overall Improvement % Improvement: 90 Objective Objective/Function: MMT: RLE: knee ext 31.7, flexion 19.6; hip: flexion 18.3, abd 29.1 LLE: knee ext: 32.1, flexion 13.0; hip: flexion 15.4, abd 21.8 6 MWT: 1212 feet no AD STAIRS: 1 HR no issues Floor transfer: pt. is able to complete with 1 UE on mat table without issues ESTELA Levi from middle of floor without assistance. Pt. 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 Overall she is doing much better. She is planning on joining a gym for exercise equipment and also start and walking routine. Pt. has met all goals at this point in time. Goals Goal 1:: LTG: Pt. to be I with HEP for LE strengthening and progressing walking program. Goal Progress: Goal Met Goal 2:: NEW GOAL: pt will be able to perform floor transfer with SUP and no LOB Goal Progress: Goal Met Goal 3:: NEW GOAL: pt will be able to squat down and picker and sorter load and unload an object with no LOB Goal Progress: Goal Met Goal 4:: LTG: Pt to complete 6 MWT with distance greater than 1000' with out use of AD. Goal Progress: Progressing Goal 5:: LTG: Pt. to have increased BLE strength increased to 5/5 throughout. Goal Progress: Goal Met Goal 6:: LTG: Pt. to negotiate 1 flight of steps with 1 HR with reciprocal pattern without LOB. Goal Progress: Goal Met Plan Plan: Pt. to be DC from PT at this point in time. D/C Information Discharge Comments: Pt. has done great with therapy. She has met all goals. She is planning on continuing with her walking program, but also start a gym membership to further work on strengthening. d/c sentence: If there are questions or concerns regarding this patient's physical therapy, please feel free to call me at [phone]. Thank you for the referral of this patient. Sincerely, Kevin Candelaria, DPT Balance/Gait/Functional tests Balance/Special Test Scores Lower Extremity Functional Score: 58 Improvement % Improvement: 90
== END 2023-12-12 19:00 | disposition home or self-care (01) ==
LOC: PT 12:00
PROVIDERS: Internal Medicine Gastroenterology; PCP Family Medicine; Referring Provider Family Medicine; Visit Provider Family Medicine
DX: R29.898 Other symptoms and signs involving the musculoskeletal system (principal); R53.1 Weakness
CPT/HCPCS: 83630; 83993; 87493; 97110; 97161

== ENCOUNTER → 2024-01-02 | Outpatient (CLI) | payer MEDICARE, OTHER, SELFPAY | END | disposition home or self-care (01) | LOC: PSN 09:19 | PROVIDERS: PCP Family Medicine; Referring Provider Internal Medicine Hematology & Oncology; Visit Provider Internal Medicine Hematology & Oncology | DX: C43.9 Malignant melanoma of skin, unspecified (principal) | CPT/HCPCS: 94642 ==

== ENCOUNTER 2024-02-05 17:39 | Inpatient (IN) | payer MEDICARE, OTHER, SELFPAY ==
[2024-01-22 13:50] LABS: Hematocrit 33.1 % (37-47); Hemoglobin 9.9 g/dL (12.0-15.0); Mean Corp Hgb Conc 29.9 g/dL (32-36); Mean Corpuscular Volume 83.6 fL (81-99); Mean Platelet Vol. 9.3 fl (6.2-12.0); Platelet Count 197 K/mm3 (150-450); RBC Distribution Width CV 15.1 % (11.6-14.6); RBC Distribution Width SD 45.8 fl (35.1-43.9); Red Blood Count 3.96 M/mm3 (4.2-5.4); White Blood Count 6.8 K/mm3 (4.4-11.0)
[2024-01-22 14:08] LABS: Anion Gap 6 (5-15); BUN 20 mg/dL (7-18); BUN/Creat Ratio 23.3 RATIO (10-20); Calcium,Total 9.2 mg/dL (8.5-10.1); Chloride 106 mmol/L (98-107); Creatinine, Serum 0.86 mg/dL (0.55-1.02); EST Glomerular Filtration Rate 68 mL/min (>60); Est Glom Filt Rate - Afr Amer 83 mL/min (>60); Glucose 119 mg/dL (74-106); Potassium 4.3 mmol/L (3.5-5.1); Sodium Level 139 mmol/L (136-145)
[2024-02-05] VITALS (23 sets, daily range): BP systolic 123–176; BP diastolic 58–88; PULSE 64–93; RESP 9–18; TEMP 36.2–36.8; O2SAT 18–100; BMI 26.3; BMI 26.9
[2024-02-05] MEDS: Lactated Ringers 1,000 ML 15 ML IV (09:29)
--- NOTE | 2024-02-05 11:59 | PCM.HP.STD ---
HPI - General HPI Narrative MISTI HUERTA, is a 78 F who presents with prior IVC filter, now tolerating anticoagulation. [facility] Medical History (Updated 01/22/24 @ 10:22 by Ameena Molina) Wears glasses Arthritis Neuropathy History of pain when walking History of echocardiogram Cardiology follow-up encounter History of atrial fibrillation Syncopal episodes Metastatic melanoma Duodenal mass Post-menopausal History of steroid therapy Anemia History of immunosuppression therapy Seizures Adrenal insufficiency 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 Bilateral pulmonary embolism Pulmonary emboli Left leg DVT Anticoagulated Former smoker Mild cognitive impairment COVID-19 Polyneuropathy Essential hypertension GERD (gastroesophageal reflux disease) Hyperlipidemia Home Medications ?Medication ?Instructions ?Recorded ?Last Taken ?Type metoprolol succinate 50 mg 50 mg PO DAILY heart rate ##0 08/15/20 02/05/24 08:15 Rx tablet,extended release 24 hr atorvastatin 40 mg tablet 40 mg PO DAILY cholesterol 09/24/20 02/05/24 08:15 History lisinopril 20 mg tablet 20 mg PO DAILY blood pressure 07/13/23 02/05/24 08:15 History acetaminophen 500 mg tablet 1,000 mg (2 x 500 mg) PO Q6H PRN 07/27/23 Unknown Rx PRN Pain Score 1-5 #0 tabs apixaban 5 mg tablet (Eliquis) 5 mg PO BID blood thinner 30 days 07/27/23 02/04/24 09:00 Rx #60 tabs pantoprazole 40 mg tablet,delayed 40 mg PO DAILY #30 tabs 08/29/23 02/05/24 08:15 Rx release melatonin 3 mg tablet 3 mg PO HS PRN sleep 10/18/23 Unknown History prednisone 5 mg tablet 5 mg PO DAILY 10/18/23 02/05/24 08:15 History diphenoxylate-atropine 2.5 1 tab PO TID PRN diarrhea #30 tabs 11/01/23 Unknown Rx mg-0.025 mg tablet (Lomotil) ondansetron HCl 8 mg tablet 8 mg PO Q8H PRN nausea and vomiting 11/02/23 Unknown History B.coagulan,subtilis 1 bill. 1 tab PO DAILY 11/23/23 Unknown History cell-inulin 1 gram-vit C 15 mg chew tablet (Culturelle Probiotic-Prebiotic) Allergy/AdvReac Type Severity Reaction Status Date / Time Sulfa (Sulfonamide Allergy Severe Swelling Verified 02/05/24 09:11 Antibiotics) amoxicillin AdvReac Severe Diarrhea Verified 02/05/24 09:11 sulfamethoxazole (From AdvReac Severe Anaphylaxis Verified 02/05/24 09:11 Bactrim) trimethoprim (From Bactrim) AdvReac Severe Swelling Verified 02/05/24 09:11 Family History Brother Alcoholism Asthma Myocardial infarction, Onset Age: 52 Seizures Skin cancer Sister CVA (cerebral vascular accident) Asthma Grandfather Asthma Father Myocardial infarction, Onset Age: 46 Had at age 46 & 62 Mother Myocardial infarction, Onset Age: 82 Surgical History History of total left hip replacement History of amputation of finger History of right hip replacement History of cataract surgery History of eye surgery Social History household members: spouse Smoking Status: Former smoker Tobacco: How many years used: 30 how long ago did patient quit smokin years ago second hand exposure: No alcohol intake: current alcohol intake frequency: holidays/special occasions only Alcohol type: wine substance use type: does not use amy/zoroastrian: None seatbelt use: always ROS Constitutional Constitutional: Denies chills, fever(s), frequent falls, lethargy or weakness Eyes Eyes: Denies blind spots, change in vision or loss of vision ENT HEENT: Denies bleeding gums, hoarseness or sore throat Cardiovascular Cardiovascular: Denies abdominal pain, bluish discoloration of hand/feet, chest pain with activity, claudication, cold extremities, cyanosis, dyspnea on exertion, erythema on extremities, irregular heart rhythm, leg edema, leg ulcers, numbness in extremities or weakness in extremities Respiratory/Chest Respiratory/Chest: Denies cough, excessive phlegm production, shortness of breath at rest, shortness of breath with exertion or wheezing Gastrointestinal Gastrointestinal: Denies anorexia, change in stool character, constipation, diarrhea, melena or rectal bleeding Genitourinary Genitourinary: Denies dysuria or hematuria Musculoskeletal Musculoskeletal: Denies abnormal gait Integumentary Integumentary: Reports other Details: ; Denies erythema, non-healing lesions or wounds Neurologic Neurologic: Denies abnormal speech, focal weakness, headache(s), loss of vision, numbness, paresthesias or sensory deficit Hematologic/Lymphatic Hematologic/Lymphatic: Denies easy bleeding, easy bruising or lymphadenopathy Vital Signs Vital Signs Vital Signs: 02/05/24 09:14 02/05/24 09:14 Temperature 97.1 F L Temperature Source Temporal Pulse Rate 74 Respiratory Rate 16 Respiratory Pattern Normal Blood Pressure 166/71 H Blood Pressure Mean 102 Blood Pressure Source Monitor Blood Pressure Position Semi-Fowlers Blood Pressure Location Left Arm Pulse Ox 100 Oxygen Delivery Method Room Air Weight Weight: 163 lb Body Mass Index (BMI) 26.3 Physical Exam Const alert, oriented x3, no apparent distress and healthy appearing General Appearance: cooperative; Negative for combative or lethargic Orientation / Consciousness: awake Exam Limitations: no limitations HEENT Head and Scalp: normocephalic and atraumatic Eyes EOMs intact bilaterally General Eye: normal appearance of both eyes Neck full ROM, no lymphadenopathy, thyroid normal and No no carotid bruits General: trachea midline; Negative for lymphadenopathy or tenderness Thyroid: thyroid normal Lymph Lymphatic: Negative for no lymphadenopathy noted Resp normal respiratory effort, no use of accessory muscles and clear to auscultation bilaterally Effort and Inspection: Negative for labored, stridor or audible wheezes Cardio regular rate, regular rhythm and no murmurs Peripheral Pulses: brachial pulses present, radial pulses present, femoral pulses present, popliteal pulses present, posterior tibial pulses present and dorsalis pedis pulses present Back/Spine Cervical Spine: cervical ROM normal Extremity full ROM, normal capillary refill and no clubbing, cyanosis or edema Skin no rashes or lesions noted and no wounds Neuro oriented x3, CN's II-XII intact bilaterally, no focal motor deficits and no sensory deficits noted Psych thought process normal, cooperative, affect normal, speech normal and activity/motor behavior normal Results Lab / Micro Data 01/22/24 13:18 01/22/24 13:18 Assessment & Plan Assessment/Plan (1) S/P insertion of IVC (inferior vena caval) filter: PLAN: -retrieve filter
--- NOTE | 2024-02-05 13:22 | PCM.OPRPT ---
Problems Associated Problem List Diagnoses (1) S/P insertion of IVC (inferior vena caval) filter: Report of Operation Date of Procedure: 02/05/24 Pre-Operative Diagnosis: prior IVC filter placement Post-Operative Diagnosis: same Surgery/Procedure Performed:: Venogram IVC Angioplasty IVC Unsuccessful attempt at filter retrieval Surgeon: Sanjeev Ceja Type of Anesthesia: General Estimated Blood Loss (mL): 25 Description of Procedure: HPI: Patient is a 78-year-old female with history of venous thromboembolic disease and active malignancy who had an IVC filter placed during a period of time when she was unable to tolerate anticoagulation. She has since been on Eliquis without any bleeding complications and presents for filter retrieval. She had attempted filter retrieval in the past however we are unable to snare the hook due to tilt of the filter. She returns now for repeat effort with femoral access as well as IJ access and plans for potential alternative techniques for retrieval. Description of procedure: Upon obtaining informed consent and verification correct patient procedure site patient was taken to the Lace Machine Operator where she was placed under general anesthesia. She is then positioned prepped and draped in usual sterile fashion a time was performed. Skin overlying the right internal jugular vein was anesthetized 1% lidocaine the vessel accessed and ultrasound guidance with a micropuncture needle wire. This then exchanged for micropuncture sheath through which a Bentson wire is advanced navigating into the inferior vena cava. The micropuncture sheath was then exchanged for the dilator for the Tosk retrieval system followed by the Tosk retrieval snare system advanced into the inferior vena cava adjacent to the superior aspect of the filter. Next skin overlying the right common femoral vein was Nestabs 1% lidocaine and the vessel accessed with a micropuncture needle wire. This then changed out for micropuncture sheath through which injection ilio caval venogram was performed revealing satisfactory positioning no extravasation dissection and confirmed patent IVC filter. Through the micropuncture sheath Bentson wire is advanced and the micropuncture sheath exchanged out for an 8 [place] sheath. A 14 mm Bard [place] balloon was then advanced to the inferior vena cava just below the filter and inflated in an effort to center the filter hook. Using the snare from the jugular access we made multiple efforts to engage the hook of the snare. It appeared as if it has now become incorporated into the IVC wall and that it was no longer within the lumen of the vessel. The balloon was advanced further cephalad and reinflated an effort to break the hook free from the IVC wall. We continue to be unable to engage the hook so we then exchanged the snare sheath for a 16 [place] sheath through which a glide wire and Omni Flush catheter advanced into the vena cava inferior to the filter and then used to navigate up retrograde through the filter struts and the snare was then utilized to grasp the wire and pulled out through the jugular access creating a wire from external to the sheath and the jugular access down into the vena cava up under the filter and back out through the sheath. We then used this to attempt to dislodge the filter from the vena cava wall and collapse it with the 16 [place] sheath. Despite fairly aggressive efforts at pulling on the wires we were unable to get the filter to dislodge from the vena cava wall. We applied a consider amount of force with no success and in fact 2 of the filter legs bent cephalad. We tried multiple other efforts to reengage the filter with no success. Rather than create a possible unsatisfactory situation with the vena cava we felt that our efforts should be terminated so the wires and sheath were withdrawn and manual pressure held at the access sites with satisfactory stasis noted. The patient was awake from anesthesia taken the recovery room in stable condition with plans to discharge to home.
--- NOTE | 2024-02-05 13:23 | EX.PCM.DISCH ---
Discharge Instructions Diet Discharge Diet: No restrictions Activity May shower in (days): 2 Lifting Restrictions: Do not lift > 20 lbs for 2 weeks Additional Activity Instructions:: Do not submerge incisions for 2 weeks Dressing / Incision Call your doctor if your incision/area has: Sudden Increased Bleeding, Increased Pain/ Swelling and Foul Smelling Discharge Remove Dressing in: 2 days Follow Up Care Test Results: Test results from this visit will be discussed in further detail at your follow-up appointment, if applicable. Discharge Plan Admission Attending Provider: Sanjeev Ceja Primary Care Provider: Marvin Malloy Instructions Print Language: Greenlandic Discharge Orders/Prescriptions Prescriptions: New oxycodone 5 mg tablet 5 mg PO Q8H PRN (Reason: pain) 2 Days Qty: 6 0RF Continued atorvastatin 40 mg tablet 40 mg PO DAILY melatonin 3 mg tablet 3 mg PO HS PRN (Reason: sleep) prednisone 5 mg tablet 5 mg PO DAILY Culturelle Probiotic-Prebiotic 1 billion cell- 1 gram-15 mg tablet,chewable 1 tab PO DAILY metoprolol succinate 50 MG tablet 50 mg PO DAILY Qty: 0 0RF Rx Instructions: Hold if heart rate less than 60/min lisinopril 20 mg tablet 20 mg PO DAILY acetaminophen 500 mg Tablet 1,000 mg PO Q6H PRN PRN (Reason: Pain Score 1-5) Qty: 0 0RF pantoprazole 40 mg Tablet,Delayed Release (Dr/Ec) 40 mg PO DAILY Qty: 30 0RF ondansetron HCl 8 mg tablet 8 mg PO Q8H PRN (Reason: nausea and vomiting) Patient Comments: take 1 tablet by mouth every 8 hours if needed for nausea and vomiting diphenoxylate-atropine [Lomotil] 2.5-0.025 mg tablet 1 tab PO TID PRN (Reason: diarrhea) Qty: 30 3RF Rx Instructions: take one three times a day as needed for diarrhea Held Eliquis 5 mg Tablet 5 mg PO BID 30 Days Qty: 60 0RF Hold Instructions: Resume on 02/06/24. AM dose Referrals / Follow Up: Marvin Malloy MD [Primary Care Provider] - Disposition Disposition (needs filled in before D/C Order can be placed): Home, Self Care
--- NOTE | 2024-02-05 13:58 | SUR.PHASEI ---
PER REPORT FROM NURSING ADMINISTRATOR, HEMASTASIS OBTAINED AT [id number]
--- NOTE | 2024-02-05 14:27 | SUR.PHASEI ---
UPON ARRIVAL TO PACU, PT IN [place]SE [place]. MAINTAINED.
[2024-02-05] MEDS: HYDROmorphone 0.5 MG/0.5 ML SYRINGE IV ×2 (17:10→20:27)
[2024-02-05] MEDS: 0.9% Normal Saline (500mL Bag) 500 ML 999 ML IV (17:20)
[2024-02-05 17:31] LABS: Hematocrit 32.4 % (37-47); Hemoglobin 10.1 g/dL (12.0-15.0)
--- NOTE | 2024-02-05 17:35 | SUR.PHASEII ---
Dr Ceja to bedside, pt to be admitted to ICU for close observation, he discussed this with pt and . Report called to Jaja in ICU. Pain in post Rt hip and lower back, does not radiate, rt foot warm and neurovasc check wnl. Denies any N/T. Denies light headed or dizziness. Dressings, soft and D/I.
[2024-02-05] MEDS: 0.9% Normal Saline (1000mL) 1,000 ML 100 ML IV (19:46)
[2024-02-06] VITALS (13 sets, daily range): BP systolic 123–147; BP diastolic 53–79; PULSE 63–80; RESP 12–23; TEMP 36.3–37.2; O2SAT 97–100; BMI 27.0
[2024-02-06] MEDS: HYDROmorphone 0.5 MG/0.5 ML SYRINGE IV (02:40)
[2024-02-06 05:41] LABS: Absolute Neutrophil Count 6.8 X10^3/uL (2.0-7.7); Basophil# 0.01 X10^3/uL; Basophil% 0.1 % (0-1); Hematocrit 30.2 % (37-47); Hemoglobin 9.1 g/dL (12.0-15.0); Lymphocyte % 8.8 % (19-41); Mean Corp Hgb Conc 30.1 g/dL (32-36); Mean Corpuscular Hgb 25.3 pg (27.0-32.0); Mean Corpuscular Volume 84.1 fL (81-99); Mean Platelet Vol. 9.6 fl (6.2-12.0); Monocyte# 0.49 X10^3/uL; Monocyte% 6.1 % (0-10); NRBC Flagged by Analyzer 0 % (0-5); Neutrophil # 6.75 X10^3/uL (2.7-7.7); Neutrophil % 84.5 % (47-70); Platelet Count 216 K/mm3 (150-450); RBC Distribution Width CV 14.9 % (11.6-14.6); RBC Distribution Width SD 45.2 fl (35.1-43.9); Red Blood Count 3.59 M/mm3 (4.2-5.4)
[2024-02-06 06:11] LABS: Anion Gap 6 (5-15); BUN 16 mg/dL (7-18); BUN/Creat Ratio 19.6 RATIO (10-20); Calcium,Total 8.6 mg/dL (8.5-10.1); Chloride 107 mmol/L (98-107); Creatinine, Serum 0.82 mg/dL (0.55-1.02); EST Glomerular Filtration Rate 73 mL/min (>60); Est Glom Filt Rate - Afr Amer 88 mL/min (>60); Estimated Creatinine Clearance 60.87 ml/min; Glucose 134 mg/dL (74-106); Potassium 4.1 mmol/L (3.5-5.1); Sodium Level 139 mmol/L (136-145)
[2024-02-06] MEDS: predniSONE 5 MG Tablet PO (07:46)
[2024-02-06] MEDS: Gabapentin 100 MG Capsule PO (07:46)
[2024-02-06] MEDS: Atorvastatin Calcium 40 MG Tablet PO (10:13)
[2024-02-06] MEDS: Metoprolol(XL)Succ 50 MG Tablet PO (10:13)
[2024-02-06] MEDS: Pantoprazole Sodium 40 MG Tablet PO (10:13)
[2024-02-06] MEDS: Lisinopril 20 MG Tablet PO (10:13)
--- NOTE | 2024-02-06 10:50 | PN.SURG_ITS ---
Subjective Subjective Patient was seen this morning resting comfortably in bed. She reports the pain from yesterday has resolved. She had not yet been up to ambulate yet as she was on bedrest overnight. She feels the gabapentin has helped a lot with her pre- existing pedal neuropathy as well. She has not had any bleeding at the access sites. She has no other complaints. Her Hgb was 9.1. Objective Data Objective Data Vital Signs: Vital Signs Temp Pulse Resp BP Pulse Ox O2 Del Method O2 Flow Rate 98.9 F 71 18 134/79 H 99 Room Air 2 02/06/24 08:00 02/06/24 10:13 02/06/24 10:00 02/06/24 10:00 02/06/24 10:00 02/06/24 10:00 02/06/24 08:04 Oxygen Flow Rate (L/min) 2 Oxygen Delivery Method Room Air Weight: 167 lb 15.876 oz Body Mass Index (BMI) 27.0 Intake & Output: Intake and Output for Last 24 Hours 02/04/24 02/05/24 02/06/24 23:59 23:59 23:59 Intake Total 500 / 500 328 / 328 Output Total 300 / 300 Balance 500 / 500 28 / 28 Lab / Micro Data 02/06/24 05:30 02/06/24 05:30 Labs: Laboratory Results - last 24 hr 02/05/24 17:08: Hgb 10.1 L, Hct 32.4 L 02/06/24 05:30: WBC 8.0, RBC 3.59 L, Hgb 9.1 L, Hct 30.2 L, MCV 84.1, MCH 25.3 L , MCHC 30.1 L, RDW Std Deviation 45.2 H, RDW Coeff of Lynn 14.9 H, Plt Count 216, MPV 9.6, Immature Gran % (Auto) 0.500, Neut % (Auto) 84.5 H, Lymph % (Auto) 8.8 L, [place] % (Auto) 6.1, Eos % (Auto) 0.0, Baso % (Auto) 0.1, Absolute Neuts (auto) 6.8, Absolute Lymphs (auto) 0.70 L, Nucleated RBC % 0, Sodium 139, Potassium 4.1, Chloride 107, Carbon Dioxide 26.0, Anion Gap 6, BUN 16, Creatinine 0.82, Estim Creat Clear Calc 60.87, Est GFR (MDRD) Af Amer 88, Est GFR (MDRD) Non-Af 73, BUN/Creatinine Ratio 19.6, Glucose 134 H, Calcium 8.6 Physical Exam Const alert, oriented x3 and no apparent distress General Appearance: cooperative and comfortable HEENT normocephalic, head/scalp atraumatic, hearing grossly normal bilaterally, external ears normal and external nose normal Eyes EOMs intact bilaterally General Eye: normal appearance of both eyes Neck Neck Narrative: R IJ puncture site with minimal drainage on the dressing, no ecchymosis, no swelling. General: trachea midline Resp normal respiratory effort, normal air movement, no retractions, no use of accessory muscles and clear to auscultation bilaterally Effort and Inspection: able to speak in complete sentences; Negative for labored, stridor or audible wheezes Cardio regular rate and regular rhythm Extremity no clubbing, cyanosis or edema Extremity Narrative: R groin access site without any significant swelling, bruising. No bleed- through. 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 Hgb dropped expected amount following procedure, overall stable and she remains without any signs/symptoms of active bleeding. Will plan to have her ambulate with nursing and if she does well with this will discharge later this morning.
--- NOTE | 2024-02-06 11:02 | DS.PCM_ITS ---
Providers Date of Admission: 02/05/24 Primary Care Physician: Dr. 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 Hgb dropped expected amount following procedure, overall stable and she remains without any signs/symptoms of active bleeding. Will plan to have her ambulate with nursing and if she does well with this will discharge later this morning. Medications at Discharge Home Medications metoprolol succinate 50 mg tablet,extended release 24 hr 50 mg PO DAILY heart rate ##0 08/15/20 atorvastatin 40 mg tablet 40 mg PO DAILY cholesterol 09/24/20 lisinopril 20 mg tablet 20 mg PO DAILY blood pressure 07/13/23 acetaminophen 500 mg tablet 1,000 mg (2 x 500 mg) PO Q6H PRN PRN Pain Score 1-5 #0 tabs 07/27/23 apixaban 5 mg tablet (Eliquis) 5 mg PO BID blood thinner 30 days #60 tabs 07/27/23 pantoprazole 40 mg tablet,delayed release 40 mg PO DAILY #30 tabs 08/29/23 melatonin 3 mg tablet 3 mg PO HS PRN sleep 10/18/23 prednisone 5 mg tablet 5 mg PO DAILY 10/18/23 diphenoxylate-atropine 2.5 mg-0.025 mg tablet (Lomotil) 1 tab PO TID PRN diarrhea #30 tabs 11/01/23 ondansetron HCl 8 mg tablet 8 mg PO Q8H PRN nausea and vomiting 11/02/23 B.coagulan,subtilis 1 bill. cell-inulin 1 gram-vit C 15 mg chew tablet (Culturelle Probiotic-Prebiotic) 1 tab PO DAILY 11/23/23 oxycodone 5 mg tablet 5 mg PO Q8H PRN pain 2 days #6 tabs 02/05/24 gabapentin 100 mg capsule 100 mg PO TIDCM 14 days #42 caps 02/06/24 Hospital Course Summary of Care Provided Hospital Course: Shikha Terry is a 78 y/o female who presented yesterday for planned IVC filter retrieval with planned attempted femoral and IJ access. Unfortunately, the IVC filter was not able to be successfully retrieved. She did tolerate the procedure well; however, upon getting up after bedrest had significant right-sided low back pain so she was admitted for observation. Overnight, she remained on bedrest. Gabapentin was initiated. She had improvement in her pain. This morning, she ambulated with nursing. She did very well and reported no pain. She also feels that her pre-existing pedal neuropathy is improved. Her hgb had expected decrease and she remains without signs/symptoms of bleeding. She is medically stable for discharge home. She has outpatient follow-up scheduled. As she has had significant improvement with gabapentin, will continue this at discharge; however, she is advised that she will need to follow-up with her PCP for continuation of this medication as indicated. Physical Exam Const alert, oriented x3 and no apparent distress General Appearance: cooperative and comfortable HEENT normocephalic, head/scalp atraumatic, hearing grossly normal bilaterally, external ears normal and external nose normal Eyes EOMs intact bilaterally General Eye: normal appearance of both eyes Neck Neck Narrative: R IJ puncture site with minimal drainage on the dressing, no ecchymosis, no swelling. General: trachea midline Resp normal respiratory effort, normal air movement, no retractions, no use of accessory muscles and clear to auscultation bilaterally Effort and Inspection: able to speak in complete sentences; Negative for labored, stridor or audible wheezes Cardio regular rate and regular rhythm Extremity no clubbing, cyanosis or edema Extremity Narrative: R groin access site without any significant swelling, bruising. No bleed- through. Skin no rashes or lesions noted Neuro oriented x3, CN's II-XII intact bilaterally, moves all extremities and no focal motor deficits Psych mental status grossly normal Appearance: grossly normal Attitude: calm and engaged Activity / Motor Behavior: appropriate eye contact Speech: normal speech Mood & Affect: euthymic mood Judgement: judgement good Weight / BMI Weight Weight: 167 lb 15.876 oz Body Mass Index (BMI) 27.0 ABG / Lab / Microbiology Data 02/06/24 05:30 02/06/24 05:30 Laboratory: Laboratory Results - last 24 hr 02/05/24 17:08: Hgb 10.1 L, Hct 32.4 L 02/06/24 05:30: WBC 8.0, RBC 3.59 L, Hgb 9.1 L, Hct 30.2 L, MCV 84.1, MCH 25.3 L , MCHC 30.1 L, RDW Std Deviation 45.2 H, RDW Coeff of Lynn 14.9 H, Plt Count 216, MPV 9.6, Immature Gran % (Auto) 0.500, Neut % (Auto) 84.5 H, Lymph % (Auto) 8.8 L, [place] % (Auto) 6.1, Eos % (Auto) 0.0, Baso % (Auto) 0.1, Absolute Neuts (auto) 6.8, Absolute Lymphs (auto) 0.70 L, Nucleated RBC % 0, Sodium 139, Potassium 4.1, Chloride 107, Carbon Dioxide 26.0, Anion Gap 6, BUN 16, Creatinine 0.82, Estim Creat Clear Calc 60.87, Est GFR (MDRD) Af Amer 88, Est GFR (MDRD) Non-Af 73, BUN/Creatinine Ratio 19.6, Glucose 134 H, Calcium 8.6 D/C Instructions Discharge Diet: No restrictions May shower in (days): 1 Lifting Restricted to (Lbs): 20 Lifting Restrictions: Do not lift greater than 20 pounds for 2 weeks Additional Activity Instructions: Do not submerge incisions for 2 weeks Call your doctor if your incision/area has: Sudden Increased Bleeding, Increased Pain/ Swelling and Foul Smelling Discharge Remove Dressing in: 1 day Meaningful Use Info Meaningful Use Meaningful Use Diagnoses (Choose all that apply): None applicable Ischemic Stroke Statin Dosing Therapy Reference: STATIN DOSE THERAPY REFERENCE: * Patients > 75 years receive moderate or high dose statin therapy. * Patients 75 years or YOUNGER should receive HIGH intensity statin dose unless contraindicated. You will be required to document reason for non-treatment if statin daily dose does not meet guidelines. HIGH DOSE STATIN THERAPY DAILY Atorvastatin > than or = to 40 mg Rosuvastatin > than or = to 20 mg Amlodipine + Atorvastatin > than or = to 2.5/40 mg Ezetimibe + Simvastatin 10/80 mg Simvastatin 80mg Discharge Plan Admission Admit Date/Time: 02/05/24 17:39 Attending Provider: Sanjeev Ceja Primary Care Provider: Marvin Malloy Discharge Orders/Prescriptions Prescriptions: New oxycodone 5 mg tablet 5 mg PO Q8H PRN (Reason: pain) 2 Days Qty: 6 0RF gabapentin 100 mg Capsule 100 mg PO TIDCM 14 Days Qty: 42 0RF Continued atorvastatin 40 mg tablet 40 mg PO DAILY melatonin 3 mg tablet 3 mg PO HS PRN (Reason: sleep) prednisone 5 mg tablet 5 mg PO DAILY Culturelle Probiotic-Prebiotic 1 billion cell- 1 gram-15 mg tablet,chewable 1 tab PO DAILY metoprolol succinate 50 MG tablet 50 mg PO DAILY Qty: 0 0RF Rx Instructions: Hold if heart rate less than 60/min lisinopril 20 mg tablet 20 mg PO DAILY acetaminophen 500 mg Tablet 1,000 mg PO Q6H PRN PRN (Reason: Pain Score 1-5) Qty: 0 0RF pantoprazole 40 mg Tablet,Delayed Release (Dr/Ec) 40 mg PO DAILY Qty: 30 0RF ondansetron HCl 8 mg tablet 8 mg PO Q8H PRN (Reason: nausea and vomiting) Patient Comments: take 1 tablet by mouth every 8 hours if needed for nausea and vomiting diphenoxylate-atropine [Lomotil] 2.5-0.025 mg tablet 1 tab PO TID PRN (Reason: diarrhea) Qty: 30 3RF Rx Instructions: take one three times a day as needed for diarrhea Held Eliquis 5 mg Tablet 5 mg PO BID 30 Days Qty: 60 0RF Hold Instructions: Resume on 02/07/24. AM dose Referrals / Follow Up: Marvin Malloy MD [Primary Care Provider] - Disposition Disposition (needs filled in before D/C Order can be placed): Home, Self Care
--- NOTE | 2024-02-06 11:51 | CASEMGMT ---
SHI WILLIAM Assessment Face to Face with patient for initial transition planning/care coordination assessment. SHI WILLIAM introduced self and role at [facility], pt voices understanding. Pt is A&Ox4 and is resting comfortably in the chair and is calm. Pt at bedside. Care providers, pharmacy, and demographics verified. Admitting dx: DVT LACE Strata: 3 PCP: Marvin Malloy Specialists: Friend (GI), Louie (Onc), Ac (Surgical Oncology), Brenna (Vascular), Yanique (OR @ [facility]), Opal (Neuro), (Endo), Earl (Podiatry) Preferred Pharmacy: [facility] Insurance: [facility] A/B, [employer] Prescription Benefit: Yes LNOK: Timbo Terry (H) Living Arrangements: Pt lives with her in a 2 story home with a FFSU and 3 steps to enter with a handrail ADLs/IADLs: Mainly independent. Pt helps with heavier tasks such as heavy vacuuming. Pt cooks, cleans, baths, and manages her own medications. Transportation: Pt does not drive. Pt drives DME: Shower bench. Toilet grab bars. Cane. FWW. Pt states that she has not needed to use these recently. HHC/SNF: [facility], [facility] History. Pt recently finished OP Tx through [facility]. Denies current needs Pt?s goal: Home no needs Plan: Home today. Pt has a DC order in and is projected to discharge home with her . Pt denies HHC or OP therapy needs at this time. Pt states that she plans to follow up with her PCP after DC. Pt states that she may continue OP Therapy through if her PCP thinks this is warranted. Pt denies further questions or concerns and is ready for DC home. Lalitha Celaya RN, CM
== END 2024-02-06 11:59 | disposition home or self-care (01) | DRG 254 ==
LOC: SDC 17:48 → ICU 20:27
PROVIDERS: Admitting Provider Surgery Trauma Surgery; PCP Family Medicine; Referring Provider Surgery Trauma Surgery; Visit Provider Surgery Trauma Surgery
PROC: 06703ZZ Dilation of Inferior Vena Cava, Percutaneous Approach (ICD-10-PCS; principal; 2024-02-05 10:50)
DX: T82.525A Displacement of umbrella device, initial encounter (principal); E78.5 Hyperlipidemia, unspecified; I10 Essential (primary) hypertension; M54.50 Low back pain, unspecified; Z95.828 Presence of other vascular implants and grafts; Z53.8 Procedure and treatment not carried out for other reasons; Y71.2 Prosthetic and other implants, materials and accessory cardiovascular devices associated with adverse incidents; Z86.718 Personal history of other venous thrombosis and embolism; Z79.01 Long term (current) use of anticoagulants; Z87.891 Personal history of nicotine dependence
CPT/HCPCS: 36415; 37193; 76937; 80048; 85014; 85018; 85025; 85027; 99252; C1769; C1894; J7030; J7040; J7120; Q9967; C1773; G0463; J2405

== ENCOUNTER → 2024-02-11 | Outpatient (CLI) | payer MEDICARE, OTHER, SELFPAY ==
--- NOTE | 2024-02-11 15:56 | RAD_ITS ---
STUDY: X-RAY - PELVIS AND RIGHT HIP REASON FOR EXAM: Female, 78 years old. Right hip pain; history right hip replacement. TECHNIQUE: 3 views of the pelvis and right hip. COMPARISON: None. FINDINGS: There is a non-specific bowel gas pattern. Normal visualized soft tissue structures. Normal bilateral iliac wings, sacroiliac joints and visualized sacrum. Normal bilateral superior and inferior pubic rami. Normal pubic symphysis. Normal bilateral ischial tuberosities. There are bilateral hip replacements in place, in good anatomic alignment. There is no periprosthetic fracture. RAD/HIP, UNI W/ Pelvis 2-3 Views IMPRESSION: Bilateral hip replacements in place, in good anatomic alignment. No periprosthetic fracture. Electronically Signed: Timbo Maradiaga MD at 8:23 EDT ,
== END | disposition home or self-care (01) ==
PROVIDERS: PCP Family Medicine; Referring Provider Psychiatry & Neurology Neurology; Visit Provider Psychiatry & Neurology Neurology
DX: M25.551 Pain in right hip (principal); Z96.641 Presence of right artificial hip joint
CPT/HCPCS: 73502

== ENCOUNTER → 2024-02-13 | Outpatient (CLI) | payer MEDICARE, OTHER, SELFPAY ==
[2024-02-13 13:00] LABS: Vitamin B12 278 pg/mL (211-911)
[2024-02-13 13:02] LABS: AST(SGOT) 20 U/L (15-37); Alanine Aminotransfer ALT/SGPT 28 U/L (13-56); Albumin, Serum 3.3 g/dL (3.2-5.0); Alkaline Phosphatase 81 U/L (45-117); Bilirubin, Direct 0.11 mg/dL (0.00-0.30); Globulin 3.5 g/dL (2.2-4.2); Protein, Total 6.8 g/dL (6.4-8.2); Thyroid Stim Hormone (TSH) 1.51 uIU/mL (0.358-3.74)
[2024-02-13 15:19] LABS: Hemoglobin A1c 5.7 % (3.8-5.6)
[2024-02-17 11:07] LABS: Free Kappa Light Chains 19.3 mg/L (3.3-19.4); Free Lambda Light Chains 16.6 mg/L (5.7-26.3); Vitamin B1, Thiamine 111.4 nmol/L (66.5-200.0)
== END | disposition home or self-care (01) ==
PROVIDERS: PCP Family Medicine; Referring Provider Psychiatry & Neurology Neurology; Visit Provider Psychiatry & Neurology Neurology
DX: G62.9 Polyneuropathy, unspecified (principal); R73.9 Hyperglycemia, unspecified; I10 Essential (primary) hypertension
CPT/HCPCS: 36415; 80076; 82607; 82746; 83036; 83883; 84425; 84443

== ENCOUNTER → 2024-02-14 | Outpatient (CLI) | payer MEDICARE, OTHER, SELFPAY ==
[2024-02-20 18:07] LABS: Pancreatic Elastase, Fecal > 800 (>200)
[2024-02-23 02:07] LABS: Calprotectin, Stool 413 ug/g (0-120); Fats, Neutral Normal (.); Fats, Total Normal (.)
== END | disposition home or self-care (01) ==
PROVIDERS: PCP Family Medicine; Referring Provider Internal Medicine Gastroenterology; Visit Provider Internal Medicine Gastroenterology
DX: R10.84 Generalized abdominal pain (principal); R19.7 Diarrhea, unspecified; K58.9 Irritable bowel syndrome, unspecified
CPT/HCPCS: 82274; 82653; 82705; 83630; 83993; 87177; 87209; 87329

== ENCOUNTER 2024-03-04 11:32 | Day surgery (SDC) | payer MEDICARE, OTHER, SELFPAY ==
[2024-03-04] VITALS (9 sets, daily range): BP systolic 102–155; BP diastolic 65–72; PULSE 74–105; RESP 16–18; TEMP 36.2–36.4; O2SAT 94–99; BMI 26.8
[2024-03-04] MEDS: Lactated Ringers 1,000 ML 15 ML IV (11:54)
--- NOTE | 2024-03-04 12:02 | PCM.PRE.AN2 ---
ASA Classification* ASA Classification ASA Classification: 3 Assessment & Plan Anesthesia* Anesthesia Assessment Anesthesia Assessment: Discussed sedation and/or anesthesia options, risks, benefits, and alternatives with patient/parents/legal guardian/POA. Questions invited. The patient/parents/legal guardian/POA seems to understand and agrees to proceed with anesthesia plan. Reviewed the physical assessment, medical history, allergy history and patient home medications list prior to surgery/procedure/anesthetic and documented any changes. Performed airway and anesthesia risk assessments. Anesthesia Type Anesthesia Type: MAC (see written pre anesthesia record for full assessment) Anesthesia Focused Assessment* Temperature: 97.5 F Pulse Rate: 74 Blood Pressure: 154/69 Respiratory Rate: 16 Pulse Ox: 99 Airway Assessment Mouth opens: >3 cm Mallampati Score: II Focused Labs Anesthesia Preop lab: CBC WBC 8.0 K/mm3 (4.4-11.0) 02/06/24 05:30 RBC 3.59 M/mm3 (4.2-5.4) L 02/06/24 05:30 Hgb 9.1 g/dL (12.0-15.0) L 02/06/24 05:30 Hct 30.2 % (37-47) L 02/06/24 05:30 Plt Count 216 K/mm3 (150-450) 02/06/24 05:30 CHEMISTRY Potassium 4.1 mmol/L (3.5-5.1) 02/06/24 05:30 Sodium 139 mmol/L (136-145) 02/06/24 05:30 Magnesium 1.6 mg/dL (1.6-2.6) 11/02/23 17:15 Phosphorus 3.9 mg/dL (2.5-4.9) 11/02/23 17:15 BUN 16 mg/dL (7-18) 02/06/24 05:30 Creatinine 0.82 mg/dL (0.55-1.02) 02/06/24 05:30 Glucose 134 mg/dL (74-106) H 02/06/24 05:30 POC Glucose 82 mg/dL (74-106) 08/28/23 05:52 TSH 1.51 uIU/mL (0.358-3.74) 02/13/24 09:41 COAG PT 22.1 SECONDS (11.7-14.9) H 09/05/23 07:09 Urine Test Negative Negative 08/27/23 22:15 Pre-Assessment Diagnosis/Proposed Procedure Planned Operative Procedure(s): EGD Anesthesia History 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 When Was Last Pacemaker Check QUESTION #4 FULL TEXT: You/Your Family Experience fever (hyperthermia) with Anesthesia Last Oral Intake Last Oral intake: Last Oral Intake NPO since 22:30 03/04/24 11:50 Meds taken in AM with sips of water? 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 Female Yes 02/25/24 14:29 HX of Motion Sickness No 02/25/24 14:29 HX of N/V After Surgery No 02/25/24 14:29 Non-Smoker Yes 02/25/24 14:29 Duration of Surgery greater No 02/25/24 14:29 than 60 minutes Number of Risk Factors 2 02/25/24 14:29 PONV Score Moderate Risk 02/25/24 14:29 Height & Weight Height & Weight: Anesthesia: Height & Weight Height 5 ft 6 in 03/04/24 11:50 Weight: 75.3 kg 03/04/24 11:50 Body Mass Index (BMI) 26.8 03/04/24 11:50 Respiratory Assessment Respiratory Assessment - 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 Has anyone observed you stop No 02/25/24 14:29 breathing during sleep? STOP Results Negative 02/25/24 14:29 QUESTION #5 FULL TEXT : Do you snore loudly (louder than talking or can be heard through closed doors)? 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 Specify any problems Hx of Preganancy in last 3 No 02/25/24 14:29 Months Nurse Filling Out Transfusion VCHRISTIN 02/25/24 14:29 & Questions: Date: 02/25/24 02/25/24 14:29 Time: 14:31 02/25/24 14:29 Patient unable to answer at this time (ie. 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: /Reproductive Hx- low pressure kettle operator Hx Now Gestational Age (in weeks): EDC: Hx Hx Para Hx Section SAB No 02/25/24 14:29 Active Medications Active Medications: Current Medications Generic Name Dose Route Start Last Admin Trade Name Freq PRN Reason Stop Dose Admin Lactated Ringer's 1,000 mls @ 15 mls/hr 03/04/24 11:45 03/04/24 11:54 IV 15 mls/hr .Q48H HAYLEE Administration PFSH Medical History Generalized abdominal pain Wears glasses Arthritis Neuropathy History of pain when walking History of echocardiogram Cardiology follow-up encounter History of atrial fibrillation Syncopal episodes Metastatic melanoma Duodenal mass Post-menopausal History of steroid therapy Anemia History of immunosuppression therapy Seizures Adrenal insufficiency 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 Bilateral pulmonary embolism Pulmonary emboli Left leg DVT Anticoagulated Former smoker Mild cognitive impairment COVID-19 Polyneuropathy Essential hypertension GERD (gastroesophageal reflux disease) Hyperlipidemia Home Medications ?Medication ?Instructions ?Recorded ?Last Taken ?Type metoprolol succinate 50 mg 50 mg PO DAILY heart rate ##0 08/15/20 02/05/24 08:15 Rx tablet,extended release 24 hr atorvastatin 40 mg tablet 40 mg PO DAILY cholesterol 09/24/20 02/05/24 08:15 History lisinopril 20 mg tablet 20 mg PO DAILY blood pressure 07/13/23 02/05/24 08:15 History acetaminophen 500 mg tablet 1,000 mg (2 x 500 mg) PO Q6H PRN 07/27/23 Unknown Rx PRN Pain Score 1-5 #0 tabs apixaban 5 mg tablet (Eliquis) 5 mg PO BID blood thinner 30 days 07/27/23 03/03/24 Rx #60 tabs pantoprazole 40 mg tablet,delayed 40 mg PO DAILY #30 tabs 08/29/23 02/05/24 08:15 Rx release melatonin 3 mg tablet 3 mg PO HS PRN sleep 10/18/23 Unknown History prednisone 5 mg tablet 5 mg PO DAILY 10/18/23 03/04/24 History ondansetron HCl 8 mg tablet 8 mg PO Q8H PRN nausea and vomiting 11/02/23 Unknown History gabapentin 600 mg tablet 600 mg PO TID #90 tabs 02/18/24 Unknown Rx famotidine 40 mg tablet 40 mg PO BID #60 tabs 02/21/24 Unknown Rx budesonide 3 mg 9 mg (3 x 3 mg) PO DAILY #90 ea 03/03/24 Unknown Rx capsule,delayed,extended release Allergy/AdvReac Type Severity Reaction Status Date / Time Sulfa (Sulfonamide Allergy Severe Swelling Verified 03/04/24 11:49 Antibiotics) amoxicillin AdvReac Severe Diarrhea Verified 03/04/24 11:49 sulfamethoxazole (From AdvReac Severe Anaphylaxis Verified 03/04/24 11:49 Bactrim) trimethoprim (From Bactrim) AdvReac Severe Swelling Verified 03/04/24 11:49 Family History Brother Alcoholism Asthma Myocardial infarction, Onset Age: 52 Seizures Skin cancer Sister CVA (cerebral vascular accident) Asthma Grandfather Asthma Father Myocardial infarction, Onset Age: 46 Had at age 46 & 62 Mother Myocardial infarction, Onset Age: 82 Surgical History Hx of surgical procedure History of total left hip replacement History of amputation of finger History of right hip replacement History of cataract surgery History of eye surgery Social History household members: spouse Smoking Status: Former smoker Tobacco: How many years used: 30 how long ago did patient quit smokin years ago second hand exposure: No alcohol intake: current alcohol intake frequency: holidays/special occasions only Alcohol type: wine substance use type: does not use amy/methodist: None seatbelt use: always Review of Systems (Anesthesia) ROS Narrative System reviewed and no additional complaints, except as documented.
[2024-03-04] MEDS: 0.9% Saline Lock 10 ML Syringe IV (12:23)
--- NOTE | 2024-03-04 12:45 | EGD_PTH ---
PATIENT: MISTI HUERTA LOC: EN U#:[id number] AGE/SX: 78/F ROOM: RE03/04/[address]: Dr. Jason Antonio DO : 1945 BED: DIS: 03/04/2024 SPEC #: [id number] RECD: 03/04/24 14:02 STATUS: JOSE RAMON TRISHA #: [id number] MAYA: 03/04/24 12:[address]: Jason Antonio DEPT: SURGICAL PATHOLOGY RECD BY: Shakira Olsen ENTERED: 03/04/24 14:11 SP TYPE: EGD BIOPSY KEE DR: Dr. Marvin Malloy MD Tissues: A - Ampulla of Vater B - Submucosa Procedures: Surgery Specimen Level IV HEADER OPERATION: EGD with polypectomy, biopsy and APC PRE-OP DIAGNOSIS: Alternating constipation and diarrhea, abdominal pain, duodenal mass TISSUE SUBMITTED: A- Ampula biopsy, B- Submucosal lesion at the bulb taken off with hot snare MICROSCOPIC DIAGNOSIS A. Amsophiela, biopsy: Fragments of duodenal mucosa with lymphangectasia. B. Submucosal lesion at the bulb, polypectomy: Steven gland hyperplasia. Negative for malignancy. [facility] [place] 03/05/2024 MICROSCOPIC DESCRIPTION Slides are reviewed. GROSS DESCRIPTION A. Received in fixative is one container labeled with the patient's name and designated Ampula biopsy. The specimen consists of multiple irregular fragments of light thompson soft tissue that in aggregate measure 0.8 x 0.3 x 0.1 cm. The specimen is totally submitted in one cassette. B. Received in fixative is one container labeled with the patient's name and designated Submucosal lesion at the bulb biopsy. The specimen consists of one irregular fragment of thompson-yellow soft tissue that measures 1.0 x 0.4 x 0.3 cm. The specimen is totally submitted in one cassette. [facility] [place] 03/04/2024 TC:5 CPT:77383q1
--- NOTE | 2024-03-04 13:03 | HP.PCM_ITS ---
History and Physical Date of Admission: 03/04/24 MISTI HUERTA, is a 78 F who presents to the office today for follow up. *[facility] hospitalization 08.26.23-08.29.23 with history of metastatic melanoma with immunotherapy (infliximab) which caused development of colitis requiring high- dose steroid use and recent identification of pulmonary embolism requiring anticoagulation use. Admission needed for inability to tolerate PO intake due to significant epigastric pain and emesis; anemia with worsening hgb (9.6). ? CT abd/pel 08.26.23 IV only mild splenomegaly. ? EGD 08.28.23 mass protruding through pylorus into stomach causing ball-valve effect; duodenal bulb with medium villous/frond-like mass, adenomatous polyp without dysplasia. [facility] hospitalization 09.01.23-09.07.23 for management of worsening abdominal pain and diarrhea with diaphoresis, pallor, dizziness and nausea with confusion. C.Difficile infection treated and discharged. ? CT abd/pel IV 09.01.23 only stable simple hepatic and renal cysts, benign; colonic diverticulosis ? Stool 09.01.23 O/P WNL. lactoferrin +, C.difficile PCR and A/B ag+ OV 2. she has had improvement since discharge. Underwent new treatment for cancer that caused ?blow out of bowels? and has since had problems with urgent, frequent loose stools that can cause fecal leaking alternating with constipation for 4-5 days. Has attempted some OTC medications that she cannot remember but have not been successful. [facility] hospitalization 11.02.23 - 11.05.23 presents with nausea, vomiting, diarrhea, and a syncopal episode that occurred today. She reports that she was feeling well earlier today. Later in the afternoon, she began to feel nauseous and had multiple bouts of vomiting and diarrhea. She was sitting on the toilet when she became lightheaded and had a syncopal episode, hitting her forehead against the wall. OV 6..24 pt reports that she is feeling much better since starting her probiotic, reports normal BM. Pt reports that recently she has noticed food and liquid feeling stuck in her throat. Continues with pantoprazole. Exam Const General: cooperative, comfortable, no acute distress, well developed, not cushingoid and frail appearing Nutritional Appearance: well nourished Orientation: alert, awake and oriented x3 HENMT Head: normal to inspection Ears: hearing grossly normal bilaterally Nose: external nose normal Mouth: oral mucosae normal Eyes General: appearance normal, both eyes and all related structures Alignment and Position: alignment normal Periorbital: periorbital findings normal Eyelids: eyelids normal Conjunctivae: conjunctivae normal Neck Neck: normal visual inspection Neck mass: No Thyroid: thyroid normal Lymphatic: no lymphadenopathy noted Chest Chest palpation & inspection: normal inspection of the chest Resp Effort & Inspection: normal respiratory effort, able to speak in complete sentences, symmetric chest movement, no audible wheezes and no cough Auscultation: Bilateral: Clear to Auscultation Cardio Rate: regular rate Rhythm: regular rhythm Pulses: posterior tibial pulses present GI Inspection: normal to inspection Skin General: no rashes or lesions noted Neuro General: patient alert, patient awake and patient oriented x3 Cranial Nerves: CN's II-XI intact bilaterally Cognition: normal cognition Speech: speech normal Gait: normal gait Motor: muscle tone normal throughout Extrem General: no edema Psych Appearance: grossly normal Mental Status: mental status grossly normal Mood: congruent mood Affect: normal affect Speech and Movement: speech and movement normal Attitude: cooperative Thought Process: normal Thought Content: normal Judgment: judgment good Assessment and Plan Assessment and Plan (1) Alternating constipation and diarrhea: Status: Chronic (2) Diarrhea: Status: Resolved Qualifiers: Diarrhea type: presumed infectious Qualified Code(s): R19.7 - Diarrhea, unspecified (3) Abdominal pain: Status: Resolved Qualifiers: Abdominal location: generalized Qualified Code(s): R10.84 - Generalized abdominal pain (4) Duodenal mass: Status: Inactive Comment: REMOVED PER DR NEGRON Plan: 78-year-old with metastatic melanoma and immunotherapy induced colitis developed C. difficile infection requiring hospitalization. She was started on oral vancomycin and IV Flagyl. She is no longer having the diarrhea. She does get some intermittent mushy stools without fecal incontinence. Recommended probiotic twice a day. She was also seen for nausea vomiting secondary to gastric outlet obstruction from a duodenal mass this was completely removed and it turned out to be a tubular adenoma. She is doing very well from the standpoint that she does not have any more nausea vomiting and is able to eat pretty much anything. She has a follow-up with her oncologist regarding treatment for her metastatic melanoma. (5) Dysphagia: Status: Acute Plan: Dysphagia and refractory GERD. Add 40 mg of famotidine in the morning and at night. I have examined the patient and the H&P has been reviewed. There are no clinical changes since date of exam.
--- NOTE | 2024-03-04 13:34 | PCM.POST.ANE ---
Anesthesia: Postop Eval I Current Vital Signs Temperature: 97.5 F Pulse Rate: 97 Blood Pressure: 102/70 Respiratory Rate: 16 Pulse Ox: 94 Oxygen Delivery Method: Room Air Assessment Airway patent: Yes Spontaneous unlabored respirations: Yes Mental status: Awake and Calm nausea: No Vomiting: No Anesthesia Complication: No Fluid Hydration Crystalloid volume administer (ml): 900 Total IV fluid infused: 900 Progress Note Anesthesia document: Postop Eval 1 completed: Yes
--- NOTE | 2024-03-04 13:36 | OP.EGD_ITS ---
Patient Name: Shikha Terry Procedure Date: 03/04/2024 1:01 PM Date of : 1945 Age: 78 Procedure: Upper GI endoscopy Indications: Epigastric abdominal pain Providers: Jason Antonio DO Referring MD: Marvin Malloy Md Patient Profile: This is a 78 year old female. Refer to note in patient chart for documentation of history and physical. Patient has symptoms of acute epigastric abdominal pain. Complications: No immediate complications. Procedure: Pre-Anesthesia Assessment: - Prior to the procedure, a History and Physical was performed, and patient medications and allergies were reviewed. The patient is competent. The risks and benefits of the procedure and the sedation options and risks were discussed with the patient. All questions were answered and informed consent was obtained. Patient identification and proposed procedure were verified by the physician in the pre-procedure area. Mental Status Examination: alert and oriented. Airway Examination: normal oropharyngeal airway and neck mobility. Respiratory Examination: clear to auscultation. CV Examination: normal. Prophylactic Antibiotics: The patient does not require prophylactic antibiotics. Prior Anticoagulants: The patient has taken no anticoagulant or antiplatelet agents except for NSAID medication. ASA Grade Assessment: II - A patient with mild systemic disease. After reviewing the risks and benefits, the patient was deemed in satisfactory condition to undergo the procedure. The anesthesia plan was to use monitored anesthesia care (MAC). Immediately prior to administration of medications, the patient was re-assessed for adequacy to receive sedatives. The heart rate, respiratory rate, oxygen saturations, blood pressure, adequacy of pulmonary ventilation, and response to care were monitored throughout the procedure. The physical status of the patient was re-assessed after the procedure. After obtaining informed consent, the endoscope was passed under direct vision. Throughout the procedure, the patient's blood pressure, pulse, and oxygen saturations were monitored continuously. The was introduced through the mouth, and advanced to the second part of duodenum. The upper GI endoscopy was accomplished without difficulty. The patient tolerated the procedure well. Scope In: 1:09:56 PM Scope Out: 1:26:07 PM Total Procedure Duration Time 0 hours 16 minutes 11 seconds Findings: The examined esophagus was normal. The gastric body was normal. A small polypoid mass with no bleeding was found in the duodenal bulb. Area was successfully injected with 7 mL EverLift for lesion assessment, and this injection appeared to lift the lesion adequately. The polyp was removed with a saline injection-lift technique using a hot snare. Resection and retrieval were complete. Verification of patient identification for the specimen was done. Estimated blood loss was minimal. There was a medium-sized lipoma, 10 mm in diameter, in the ampulla. Biopsies were taken with a cold forceps for histology. Verification of patient identification for the specimen was done. Estimated blood loss was minimal. Impression: - Normal esophagus. - Normal gastric body. - Likely benign duodenal mass. Complete removal was accomplished. Injected. - Duodenal lipoma. Biopsied. Recommendation: - Discharge patient to home. - Resume previous diet. - Continue present medications. - Await pathology results. Procedure Code(s): --- Professional --- 21690, Esophagogastroduodenoscopy, flexible, transoral; with removal of tumor(s), polyp(s), or other lesion(s) by snare technique 41824, 59, Esophagogastroduodenoscopy, flexible, transoral; with biopsy, single or multiple 83929, 59,51, Esophagogastroduodenoscopy, flexible, transoral; with directed submucosal injection(s), any substance CPT copyright 2021 [employer]. All rights reserved. The codes documented in this report are preliminary and upon him coder review may be revised to meet current compliance requirements. Jason Antonio DO 03/04/2024 1:36:28 PM This report has been signed electronically. Number of Addenda: 0 Note Initiated On: 03/04/2024 1:01 PM
--- NOTE | 2024-03-04 13:37 | OP.CCLET_ITS ---
03/04/2024 Marvin Malloy Md Re : Upper GI endoscopy procedure for Shikha Terry Dear Gama This procedure was performed on Monday, March 04, 2024. My impressions and recommendations are as follows: Impressions : - Normal esophagus. - Normal gastric body. - Likely benign duodenal mass. Complete removal was accomplished. Injected. - Duodenal lipoma. Biopsied. Recommendations : - Discharge patient to home. - Resume previous diet. - Continue present medications. - Await pathology results. My findings are described in the full procedure note, which is enclosed. If I can be of further assistance, please feel free to contact me at . Sincerely, Jason Antonio, 03/04/2024 1:36:28 PM This report has been signed electronically.
--- NOTE | 2024-03-04 15:10 | POSTOPAN2_ITS ---
Anesthesia Postop Eval I Sum Postop Eval Completion status Anesthesia document: Postop Eval 1 completed: Yes Anesthesia Postop Eval I Summary Anesthesia Postop Eval I Summary: Anesthesia Postop Eval I: Assessment Summary Airway patent Yes 03/04/24 13:39 PUBLIC ADDRESS [email or web address] Spontaneous unlabored Yes 03/04/24 13:39 PUBLIC ADDRESS [email or web address].[email or web address] respirations Mental status Awake,Calm 03/04/24 13:39 PUBLIC ADDRESS [email or web address].[email or web address] nausea No 03/04/24 13:39 PUBLIC ADDRESS TECHNICIAN.GDOTT Vomiting No 03/04/24 13:39 PUBLIC ADDRESS [email or web address].[email or web address] Anesthesia Postop Eval I: Fluid Summary Crystalloid volume administer 900 03/04/24 13:39 PUBLIC ADDRESS TECHNICIAN.[email or web address] (ml) Colloids volume administered ( ml) Blood Product volume administered (ml) Total IV fluid infused 900 03/04/24 13:39 PUBLIC ADDRESS TECHNICIAN.GDOTT Anesthesia Postop Eval I: Summary Notes Anesthesia Complication No 03/04/24 13:39 PUBLIC ADDRESS [email or web address].[email or web address] Anesthesia Complication Comment: Post-operative progress note Anesthesia: Postop Eval II Evaluation Mental status: Awake and Calm Pain Level: 0 nausea: No Vomiting: No Complications Anesthesia Complication: No
--- NOTE | 2024-03-04 15:10 | PCM.POSTANE2 ---
Anesthesia Postop Eval I Sum Postop Eval Completion status Anesthesia document: Postop Eval 1 completed: Yes Anesthesia Postop Eval I Summary Anesthesia Postop Eval I Summary: Anesthesia Postop Eval I: Assessment Summary Airway patent Yes 03/04/24 13:39 [email or web address] Spontaneous unlabored Yes 03/04/24 13:39 RETORT [email or web address] respirations Mental status Awake,Calm 03/04/24 13:39 RETORT [email or web address] nausea No 03/04/24 13:39 RETORT [email or web address] Vomiting No 03/04/24 13:39 RETORT [email or web address] Anesthesia Postop Eval I: Fluid Summary Crystalloid volume administer 900 03/04/24 13:39 RETORT [email or web address] (ml) Colloids volume administered ( ml) Blood Product volume administered (ml) Total IV fluid infused 900 03/04/24 13:39 RETORT [email or web address] Anesthesia Postop Eval I: Summary Notes Anesthesia Complication No 03/04/24 13:39 RETORT [email or web address].[email or web address] Anesthesia Complication Comment: Post-operative progress note Anesthesia: Postop Eval II Evaluation Mental status: Awake and Calm Pain Level: 0 nausea: No Vomiting: No Complications Anesthesia Complication: No
== END 2024-03-04 14:27 | disposition home or self-care (01) ==
LOC: EN 11:34 → AC 11:41
PROVIDERS: PCP Family Medicine; Referring Provider Family Medicine; Visit Provider Internal Medicine Gastroenterology
PROC: 0DJ08ZZ Inspection of Upper Intestinal Tract, Via Natural or Artificial Opening Endoscopic (ICD-10-PCS; CPT 43235; principal; 2024-03-04 12:40)
DX: K59.00 Constipation, unspecified (principal); R19.7 Diarrhea, unspecified; R10.84 Generalized abdominal pain; D13.2 Benign neoplasm of duodenum; R13.10 Dysphagia, unspecified; D17.9 Benign lipomatous neoplasm, unspecified
CPT/HCPCS: 43251; 43236; 88305; A4216

== ENCOUNTER → 2024-03-11 | Outpatient (CLI) | payer MEDICARE, OTHER, SELFPAY ==
--- NOTE | 2024-03-11 10:38 | NEURO ---
NCS and/or EMG Patient Report Ordering Doctor: Brock Joseph DATE OF SERVICE: 03/11/24 Clinical Summary: 78 year old female patient with symptoms of numbness, tingling, and pain in both of her feet. The foot pain/discomfort is most pronounced at night while lying down. Nerve Conduction Studies Summary: The right peroneal-EDB CMAP amplitude is reduced diffusely. The distal peroneal motor conduction velocities are mildly reduced bilaterally. Needle Examination Summary: Needle examination of select muscles of the bilateral lower extremities demonstrated a higher proportion of motor unit action potentials with reduced recruitment, increased amplitude, increased duration, and polyphasia in the left tibialis anterior and bilateral peroneus longus muscles. Impression: Chronic neurogenic changes in the left tibialis anterior and bilateral peroneus longus muscles are suggestive (but not definitively diagnostic) of chronic, mild, bilateral L5 radiculopathies There is no electrodiagnostic evidence of a large-fiber peripheral polyneuropathy. Multi Select Codes Neurology Neurology Interp Codes: 84407-25 Musc test done w/n test comp (interp) (2) and 17211-06 Nrv cndj test 7-8 studies (interp)
== END | disposition home or self-care (01) ==
PROVIDERS: PCP Family Medicine; Referring Provider Psychiatry & Neurology Neurology; Visit Provider Psychiatry & Neurology Neurology
DX: R20.2 Paresthesia of skin (principal); G62.9 Polyneuropathy, unspecified
CPT/HCPCS: 95886; 95910

== ENCOUNTER → 2024-03-19 | Outpatient (CLI) | payer MEDICARE, OTHER, SELFPAY ==
--- NOTE | 2024-03-19 12:42 | NM_ITS ---
CLINICAL: 78-year-old female with history of abdominal pain. SEMI-SOLID PHASE 99m Tc SULFUR COLLOID GASTRIC EMPTYING STUDY COMPARISON: CT of the abdomen-pelvis report 11/04/2023 FINDINGS: The patient was administered 1.1 mCi of 99m Tc sulfur colloid mixed with oatmeal and consumed per os. Image acquisitions in the anterior-posterior projections were obtained for 60 minutes. There is prompt visualization of the stomach. There is no gastroesophageal reflux identified. The T ? raw data emptying was calculated to be 31.28 minutes, (Normal: 12-56 minutes). NM/Gastric Emptying Study IMPRESSION: 1. NORMAL 99m Tc sulfur colloid semi-solid phase (oatmeal) gastric emptying imaging examination. A. There is normal and preserved semi-solid phase gastric emptying compared to normal controls. (Dora et al, J Nucl Med Tech 38: 186, 2010). Electronically Signed: Levy Tamez DO at 10:34 EDT ,
== END | disposition home or self-care (01) ==
LOC: NM 12:41
PROVIDERS: PCP Family Medicine; Referring Provider Internal Medicine Gastroenterology; Visit Provider Internal Medicine Gastroenterology
DX: R52 Pain, unspecified (principal)
CPT/HCPCS: 78264; A9541

== ENCOUNTER → 2024-03-24 | Outpatient (CLI) | payer MEDICARE, OTHER, SELFPAY ==
--- NOTE | 2024-03-24 08:45 | RAD_ITS ---
STUDY: X-RAY - ESOPHAGUS (BARIUM SWALLOW) WITH FLUOROSCOPY REASON FOR EXAM: Female, 78 years old. Dysphagia TECHNIQUE: 100 view(s) of the esophagus were obtained following swallowing of barium. FLUOROSCOPY TIME (if supplied): (45 seconds) minutes/seconds. 5.1 mGy. COMPARISON: None. FINDINGS: There is no demonstrated esophageal foreign body. There is no demonstrated stricture or mucosal abnormality. Normal gastroesophageal junction, without a demonstrated hiatal hernia. The patient ingested a 12 mm tablet of barium without difficulty. There is atherosclerotic calcification of the aortic arch with tortuosity of the descending aorta. Normal visualized pulmonary parenchyma. Normal visualized osseous structures of the thorax. RAD/Esophagus Dual Contrast IMPRESSION: Normal plain film x-ray examination (barium swallow) of the esophagus. Electronically Signed: Ta Reese MD at 11:26 EDT ,
== END | disposition home or self-care (01) ==
LOC: RAD 08:38
PROVIDERS: PCP Family Medicine; Referring Provider Internal Medicine Gastroenterology; Visit Provider Internal Medicine Gastroenterology
DX: R52 Pain, unspecified (principal); R13.10 Dysphagia, unspecified
CPT/HCPCS: 74221

== ENCOUNTER → 2024-07-17 | Outpatient (CLI) | payer MEDICARE, OTHER, SELFPAY ==
[2024-07-21 16:10] LABS: Calprotectin, Stool 70 ug/g (0-120)
== END | disposition home or self-care (01) ==
LOC: LABSPEC 13:18
PROVIDERS: PCP Family Medicine; Referring Provider Internal Medicine Gastroenterology; Visit Provider Internal Medicine Gastroenterology
DX: K58.0 Irritable bowel syndrome with diarrhea (principal)
CPT/HCPCS: 83630; 83993

== ENCOUNTER 2024-10-07 19:33 | Inpatient (IN) | payer MEDICARE, OTHER, SELFPAY ==
[2024-10-07] VITALS (9 sets, daily range): BP systolic 138–152; BP diastolic 58–78; PULSE 95–136; RESP 11–24; TEMP 37.2–37.9; O2SAT 81–97; BMI 30.3
--- NOTE | 2024-10-07 19:37 | RAD_ITS ---
PROCEDURE: CHEST PA AND LATERAL REASON FOR EXAM: Cough, congestion. TECHNIQUE: Frontal and lateral views of the chest. COMPARISON: Chest x-ray from 09/01/2023. FINDINGS: Cardiac size and pulmonary vasculature are within normal limits. No consolidation, pleural effusion, or pneumothorax is present. There is hyperinflation of the lungs. Degenerative changes are identified. There is partial visualization of an IVC filter. RAD/Chest PA and Lateral IMPRESSION: No acute cardiopulmonary process. Reading Location: [facility]
--- NOTE | 2024-10-07 19:38 | EKG12_ITS ---
Test Reason : WEAKNESS Blood Pressure : */* mmHG Vent. Rate : 117 BPM Atrial Rate : 117 BPM P-R Int : 154 ms QRS Dur : 70 ms QT Int : 314 ms P-R-T Axes : 35 77 35 degrees QTcB Int : 438 ms Sinus tachycardia Nonspecific ST abnormality Abnormal ECG Confirmed by Shorty Simmons ([id number]), editor news CLAYTON QUINONES ([id number]) on 10/08/2024 11:28:18 AM Referred By: [facility] Confirmed By: Shorty Simmons
[2024-10-07 20:10] LABS: Absolute Neutrophil Count 5.6 X10^3/uL (2.0-7.7); Basophil# 0.01 X10^3/uL; Basophil% 0.1 % (0-1); Eosinophil# 0.01 X10^3/uL; Eosinophils% 0.1 % (0-5); Hematocrit 39.4 % (37-47); Hemoglobin 12.4 g/dL (12.0-15.0); Lymphocyte % 8.7 % (19-41); Mean Corp Hgb Conc 31.5 g/dL (32-36); Mean Corpuscular Hgb 27.9 pg (27.0-32.0); Mean Corpuscular Volume 88.7 fL (81-99); Mean Platelet Vol. 9.5 fl (6.2-12.0); Monocyte# 0.66 X10^3/uL; Monocyte% 9.6 % (0-10); NRBC Flagged by Analyzer 0 % (0-5); Neutrophil # 5.56 X10^3/uL (2.7-7.7); Neutrophil % 80.9 % (47-70); POSITIVE DIFFERENTIAL YES; Platelet Count 201 K/mm3 (150-450); RBC Distribution Width CV 13.2 % (11.6-14.6); RBC Distribution Width SD 42.9 fl (35.1-43.9); Red Blood Count 4.44 M/mm3 (4.2-5.4); White Blood Count 6.9 K/mm3 (4.4-11.0)
[2024-10-07 20:28] LABS: Anion Gap 8 (5-15); BUN 17 mg/dL (7-18); Calcium,Total 9.1 mg/dL (8.5-10.1); Chloride 99 mmol/L (98-107); Creatinine, Serum 1.13 mg/dL (0.55-1.02); EST Glomerular Filtration Rate 50 mL/min (>60); Est Glom Filt Rate - Afr Amer 60 mL/min (>60); Estimated Creatinine Clearance 45.88 ml/min; Glucose 112 mg/dL (74-106); Potassium 3.9 mmol/L (3.5-5.1); Sodium Level 136 mmol/L (136-145); Troponin-I HS (w/2H Reflex) 27 pg/mL (3.0-54.0)
[2024-10-07 20:41] LABS: Lactic Acid 1.6 mmol/L (0.4-1.9)
[2024-10-07 22:07] LABS: Reflex Troponin-HS? (from REC) Y
[2024-10-07] MEDS: Acetaminophen 325 MG Tablet 650 MG PO (22:30)
[2024-10-07] MEDS: 0.9% Normal Saline (1000mL) 1,000 ML 999 ML IV (22:32)
[2024-10-07 22:41] LABS: Troponin-I HS 25 pg/mL (3.0-54.0)
[2024-10-08] VITALS (9 sets, daily range): BP systolic 119–131; BP diastolic 57–69; PULSE 82–93; RESP 14–18; TEMP 36.7–37.2; O2SAT 95–99; BMI 30.1
--- NOTE | 2024-10-08 00:50 | EX.ED.DYSGE1 ---
HPI History of Present Illness Chief Complaint: Weakness Informant: patient Narrative Narrative: Patient is a 79-year-old female presenting with generalized weakness, fevers and headaches as well as cough. Her came down with symptoms 5 days ago the patient developed symptoms 3 days ago. She started to get worse 2 days ago and had a syncopal episode. notes that is not uncommon for her to have a syncopal episode when she is sick. She had a Tmax temperature of 102.5. Last had Tylenol at 720 this morning. Is been having cough, sore throat, abdominal pain which she states is from all the coughing. States her coughing has been nonproductive. Has had some nausea but no vomiting. Has had some mild diarrhea. Is complain of bodyaches. Denies any urinary symptoms. Does have extensive medical history including metastatic melanoma (is not been on any chemo for the last 1/2 months) and had recent likely melanoma tumor removed from her left upper arm. She does have a history of adrenal insufficiency. She follows with Dr. Palma. She did go on her stress dose of prednisone from 5 mg to 10 mg yesterday and again today. No other complaints or concerns reported at this time [facility] Medical History Generalized abdominal pain Wears glasses Arthritis Neuropathy History of pain when walking History of echocardiogram Cardiology follow-up encounter History of atrial fibrillation Syncopal episodes Metastatic melanoma Duodenal mass Post-menopausal History of steroid therapy Anemia History of immunosuppression therapy Seizures Adrenal insufficiency 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 Bilateral pulmonary embolism Pulmonary emboli Left leg DVT Anticoagulated Former smoker Mild cognitive impairment COVID-19 Polyneuropathy Essential hypertension GERD (gastroesophageal reflux disease) Hyperlipidemia Home Medications ?Medication ?Instructions ?Recorded ?Last Taken ?Type metoprolol succinate 50 mg 50 mg PO DAILY heart rate ##0 08/15/20 10/06/24 Rx tablet,extended release 24 hr atorvastatin 40 mg tablet 40 mg PO DAILY cholesterol 09/24/20 10/06/24 History lisinopril 20 mg tablet 40 mg PO DAILY blood pressure 07/13/23 10/06/24 History acetaminophen 500 mg tablet 1,000 mg (2 x 500 mg) PO Q6H PRN 07/27/23 10/07/24 07:20 Rx PRN Pain Score 1-5 #0 tabs apixaban 5 mg tablet (Eliquis) 5 mg PO BID blood thinner 30 days 07/27/23 10/06/24 Rx #60 tabs pantoprazole 40 mg tablet,delayed 40 mg PO DAILY #30 tabs 08/29/23 10/06/24 Rx release melatonin 3 mg tablet 3 mg PO HS PRN sleep 10/18/23 Unknown History ondansetron HCl 8 mg tablet 8 mg PO Q8H PRN nausea and vomiting 11/02/23 Unknown History Bacillus coagulans-inulin 1 1 cap PO DAILY 03/27/24 10/06/24 History billion cell-250 mg capsule (Probiotic with Prebiotic) dicyclomine 10 mg capsule 10 mg PO BID PRN abdominal pain 03/27/24 Unknown History oxycodone 5 mg capsule 5 mg PO Q8H PRN pain 03/27/24 Unknown History prednisone 5 mg tablet 5 mg PO DAILY #100 tabs 03/27/24 10/07/24 Rx tizanidine 4 mg capsule 4 mg PO Q8H PRN muscle spasticity 03/27/24 Unknown History budesonide 3 mg 9 mg (3 x 3 mg) PO DAILY #180 ea 04/17/24 10/06/24 Rx capsule,delayed,extended release Allergy/AdvReac Type Severity Reaction Status Date / Time Sulfa (Sulfonamide Allergy Severe Swelling Verified 10/07/24 19:34 Antibiotics) amoxicillin AdvReac Severe Diarrhea Verified 10/07/24 19:34 sulfamethoxazole (From AdvReac Severe Anaphylaxis Verified 10/07/24 19:34 Bactrim) trimethoprim (From Bactrim) AdvReac Severe Swelling Verified 10/07/24 19:34 Family History Brother Alcoholism Asthma Myocardial infarction, Onset Age: 52 Seizures Skin cancer Sister CVA (cerebral vascular accident) Asthma Grandfather Asthma Father Myocardial infarction, Onset Age: 46 Had at age 46 & 62 Mother Myocardial infarction, Onset Age: 82 Surgical History Hx of surgical procedure History of total left hip replacement History of amputation of finger History of right hip replacement History of cataract surgery History of eye surgery Social History household members: spouse Smoking Status: Former smoker Tobacco: How many years used: 30 how long ago did patient quit smokin years ago second hand exposure: No alcohol intake: current alcohol intake frequency: holidays/special occasions only Alcohol type: wine substance use type: does not use amy/samaritan: None seatbelt use: always ROS ROS ED Constitutional Constitutional ED: Reports chills, fever(s) and other Details: Syncope ENT ENT ED: Reports sore throat and other Details: Congestion ; Denies ear pain Cardiovascular Cardiovascular: Denies chest pain Respiratory/Chest Respiratory/Chest: Reports cough; Denies dyspnea or sputum Gastrointestinal Gastrointestinal: Reports abdominal pain, diarrhea, nausea and other Details: Reports abdominal pain is from coughing ; Denies vomiting Musculoskeletal Musculoskeletal: Reports myalgias Integumentary Denies rash Neurologic Neurologic: Reports headache(s) and weakness; Denies paresthesias Hematologic/Lymphatic Hematologic/Lymphatic: Reports easy bleeding, easy bruising and other Details: On Eliquis EXAM Physical Exam Const Vital Signs: 10/07/24 19:34 10/07/24 20:29 10/07/24 20:29 Temperature 100.3 F H Temperature Source Oral Pulse Rate 136 H Respiratory Rate 24 H Respiratory Effort Respiratory Pattern Blood Pressure 152/78 H Blood Pressure Mean 102 Pulse Ox 96 92 Oxygen Delivery Method Room Air Room Air Room Air Oxygen Flow Rate (L/min) 10/07/24 20:31 10/07/24 20:31 10/07/24 20:33 Temperature Temperature Source Pulse Rate 110 H Respiratory Rate 12 Respiratory Effort Normal Respiratory Pattern Normal Blood Pressure 146/68 H Blood Pressure Mean 94 Pulse Ox 94 Oxygen Delivery Method Room Air Room Air Oxygen Flow Rate (L/min) 10/07/24 20:36 10/07/24 21:00 10/07/24 21:25 Temperature 100.2 F H 100.2 F H Temperature Source Oral Oral Pulse Rate 113 H 111 H Respiratory Rate 14 16 Respiratory Effort Respiratory Pattern Blood Pressure 146/68 H 149/58 H Blood Pressure Mean 94 88 Pulse Ox 95 96 81 Oxygen Delivery Method Room Air Nasal Cannula Room Air Oxygen Flow Rate (L/min) 2 10/07/24 21:25 10/07/24 22:00 10/07/24 23:00 Temperature 99.0 F 99.0 F Temperature Source Oral Oral Pulse Rate 102 H 95 Respiratory Rate 11 L 11 L Respiratory Effort Respiratory Pattern Blood Pressure 141/59 H 138/60 H Blood Pressure Mean 86 86 Pulse Ox 93 97 85 Oxygen Delivery Method Nasal Cannula Nasal Cannula Room Air Oxygen Flow Rate (L/min) 2 2 10/08/24 00:00 Temperature Temperature Source Pulse Rate 87 Respiratory Rate 14 Respiratory Effort Respiratory Pattern Blood Pressure 131/57 H Blood Pressure Mean 78 Pulse Ox Oxygen Delivery Method Oxygen Flow Rate (L/min) Positive well nourished and well developed General Appearance ED: well developed and NAD HEENT Reports dry mucous membranes Mouth ED: Yes dry mucous membranes Mouth: dry mucous membranes Eyes PERRL General Eye ED: Negative for pale conjunctiva or scleral icterus Neck no lymphadenopathy, supple and no JVD Chest Wall inspection of chest normal and palpation of chest normal Resp normal respiratory effort Resp Narrative: Coarse breath sounds at the bases bilaterally Auscultation: Negative for wheezes Cardio regular rhythm and no murmurs Rate: tachycardic GI normal to inspection, nondistended, normoactive bowel sounds and non-tender Extremity normal to inspection General Extremety ED: Negative for edema General Extremity: Negative for edema Neuro oriented x3 Sensorium / Orientation: alert Motor Exam: general weakness Psych mental status grossly normal Skin Skin Narrative: Healing surgical incision on the left inner arm. No overlying erythema or signs of secondary infection. No drainage appreciated MDM MDM MDM Narrative Medical decision making narrative: Patient is noted for fever, cough, flulike symptoms generalized weakness. Upon arrival patient is febrile with a temperature of 100.3 and tachycardic with a heart rate of 136. She does drop her O2 saturation down into the 80s and is requiring supplemental oxygen. Differential includes pneumonia, influenza, CHF, sepsis, dehydration, ACS and electrolyte derangement. Lower suspicion for PE as patient is anticoagulated on Eliquis. She is not hypotensive and low suspicion for acute adrenal insufficiency. Patient is given a liter of IV fluid as well as Tylenol. She has had some improvement. Heart rate discharge normalized. CBC, BMP largely normal. High sensitive troponin stable and normal at 27 and then 25. Lactate normal at 1.6. Creatinine mildly up at 1.13 and patient's baseline appears to be between 0.6 and 0.8. She is likely has some mild renal insufficiency. Patient is found to be positive for influenza A. This is likely the cause of her symptoms. She is ambulated in the ER and does go down to 85% on room air before she would start walking. Will be admitted for further respiratory support and treatment of influenza. Chest x-ray is not consistent with pneumonia on my review as well as radiology. Case discussed with hospitalist, Dr. Sales. Lab Data Attestation: I reviewed the patient's lab results. Labs: Laboratory Results - last 24 hr 10/07/24 10/07/24 19:52 22:17 WBC 6.9 RBC 4.44 Hgb 12.4 Hct 39.4 MCV 88.7 MCH 27.9 MCHC 31.5 L RDW Std Deviation 42.9 RDW Coeff of Lynn 13.2 Plt Count 201 MPV 9.5 Immature Gran % (Auto) 0.600 Neut % (Auto) 80.9 H Lymph % (Auto) 8.7 L [place] % (Auto) 9.6 Eos % (Auto) 0.1 Baso % (Auto) 0.1 Absolute Neuts (auto) 5.6 Absolute Lymphs (auto) 0.60 L Nucleated RBC % 0 Sodium 136 Potassium 3.9 Chloride 99 Carbon Dioxide 29.0 Anion Gap 8 BUN 17 Creatinine 1.13 H Estim Creat Clear Calc 45.88 Est GFR (MDRD) Af Amer 60 Est GFR (MDRD) Non-Af 50 L BUN/Creatinine Ratio 15.0 Glucose 112 H Lactic Acid 1.6 Calcium 9.1 Troponin I High Sens 27 25 Radiography Diagnostic Testing: Clinical Impression(s) from Imaging Studies Chest X-Ray 10/07/24 19:37 IMPRESSION: No acute cardiopulmonary process. Reading Location: [facility] Rhythm Strip Rhythm Strip: Sinus Tach Rate: 117 Ectopy: None EKG Initial EKG: Attestation: I personally reviewed and interpreted this EKG as follows: Interpretation: Sinus Tachycardia Comments: Sinus tachycardia at a rate of 117 bpm Normal axis Normal intervals Nonspecific T wave changes Prior EKG tracings: available for review Prior: Unchanged Management Discussion w/another healthcare provider: Hospitalist Discharge Plan Dx/Rx/DC Orders Clinical Impression: Influenza A, Hypoxia Disposition Disposition: Acute Care [facility]
--- NOTE | 2024-10-08 01:09 | HP.PCM.HOS_ITS ---
[facility] - General General Date of Admission: 10/08/24 Date of Service: 10/08/24 Chief Complaint: Fever, Generalized Weakness and SOB with Exertion. HPI Narrative MISTI HUERTA, is a 79 F with a past medical history of essential hypertension; on metoprolol, hyperlipidemia; on atorvastatin, obesity with a BMI of 30.4 this admission, former history of tobacco abuse for ~30 years (quit ~1989), history of DVT/PE; on apixaban, history of IVC filter placement (01/2024), history of metastatic melanoma to lymph nodes; s/p tumor excision from Left upper arm followed by Dr. Palma of oncology with patient having no chemo for the past ~1-2 months, history of duodenal mass; s/p resection by Dr. Antonio of gastroenterology, history of adrenal insufficiency; on prednisone 5 mg daily, history of recurrent syncope with acute illness, polyneuropathy; primarily in feet, history of cerebellar CVA, mild cognitive impairment, history of cluster headache, history of occipital neuralgia, history of seizure attributed to COVID-19 (2019), GERD; on pantoprazole, OA; s/p bilateral THR's and recently diagnosed influenza A who presents to [facility] ER complaining of fever, general weakness and shortness of breath with exertion. Mrs. Huerta reports her symptoms began approximately 3 days prior to admission with a gradual-onset of a viral upper respiratory infection that acutely worsened 2 days ago causing a syncopal episode. Patient admits to recent sick contact with her came down with similar symptoms ~5 days ago. Her reported to the ER physician that is not uncommon for her to have syncopal episodes when she becomes acutely ill. She was noted to have a maximum temperature of 102.5 ?F and she took her last dose of acetaminophen this morning at approximately 7:20 AM. She still admits to cough, sore throat and abdominal pain with body aches which she attributes to increasingly frequent cough. She admits to increasing her prednisone from 5 mg daily to 10 mg yesterday and today. She admits to nausea and mild diarrhea with nonproductive cough and headache but she denies vomiting, dysuria, hematuria, chest pain or rash. In the ER she was diagnosed with Influenza A complicated by clinical evidence of Respiratory Insufficiency with oxygen saturation dropping to ~85% with activity requiring initiation of 2L NC combining to cause Generalized Weakness with Ambulatory Dysfunction and recent Syncopal event with chest x-ray negative for acute pathologic changes and no wheezing noted on exam. She was then admitted to the general medical floor for ongoing care for stay that is expected to extend beyond 2 midnights. [facility], LAT[facility] Medical History Generalized abdominal pain Wears glasses Arthritis Neuropathy History of pain when walking History of echocardiogram Cardiology follow-up encounter History of atrial fibrillation Syncopal episodes Metastatic melanoma Duodenal mass Post-menopausal History of steroid therapy Anemia History of immunosuppression therapy Seizures Adrenal insufficiency 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 Bilateral pulmonary embolism Pulmonary emboli Left leg DVT Anticoagulated Former smoker Mild cognitive impairment COVID-19 Polyneuropathy Essential hypertension GERD (gastroesophageal reflux disease) Hyperlipidemia Home Medications ?Medication ?Instructions ?Recorded ?Last Taken ?Type metoprolol succinate 50 mg 50 mg PO DAILY heart rate # #0 08/15/20 10/06/24 Rx tablet,extended release 24 hr atorvastatin 40 mg tablet 40 mg PO DAILY cholesterol 0 09/24/20 10/06/24 History lisinopril 20 mg tablet 40 mg PO DAILY blood pressur e 07/13/23 10/06/24 History acetaminophen 500 mg tablet 1,000 mg (2 x 500 mg) PO Q 6H PRN 07/27/23 10/07/24 07:20 Rx PRN Pain Score 1-5 #0 tabs apixaban 5 mg tablet (Eliquis) 5 mg PO BID blood thinn er 30 days 07/27/23 10/06/24 Rx #60 tabs pantoprazole 40 mg tablet,delayed 40 mg PO DAILY #30 t abs 08/29/23 10/06/24 Rx release melatonin 3 mg tablet 3 mg PO HS PRN sleep 4 Unknown History ondansetron HCl 8 mg tablet 8 mg PO Q8H PRN nausea and vomiting 11/02/23 Unknown History Bacillus coagulans-inulin 1 1 cap PO DAILY 03/27/24 History billion cell-250 mg capsule (Probiotic with Prebiotic) dicyclomine 10 mg capsule 10 mg PO BID PRN abdominal p ain 03/27/24 Unknown History oxycodone 5 mg capsule 5 mg PO Q8H PRN pain 4 Unknown History prednisone 5 mg tablet 5 mg PO DAILY #100 tabs 08/09/1911/25 Rx tizanidine 4 mg capsule 4 mg PO Q8H PRN muscle spast icity 03/27/24 Unknown History budesonide 3 mg 9 mg (3 x 3 mg) PO DAILY #18 0 ea 04/17/24 10/06/24 Rx capsule,delayed,extended release Allergy/AdvReac Type Severity Reaction Status Date / Time Sulfa (Sulfonamide Allergy Severe Swelling Verified 10/07/24 19:34 Antibiotics) amoxicillin AdvReac Severe Diarrhea Verified 10/07/24 19:34 sulfamethoxazole (From AdvReac Severe Anaphylaxis Verified 10/07/24 19:34 Bactrim) trimethoprim (From Bactrim) AdvReac Severe Swelling Verified 10/07/24 19:34 Family History Brother Alcoholism Asthma Myocardial infarction, Onset Age: 52 Seizures Skin cancer Sister CVA (cerebral vascular accident) Asthma Grandfather Asthma Father Myocardial infarction, Onset Age: 46 Had at age 46 & 62 Mother Myocardial infarction, Onset Age: 82 Surgical History Hx of surgical procedure History of total left hip replacement History of amputation of finger History of right hip replacement History of cataract surgery History of eye surgery Social History household members: spouse Smoking Status: Former smoker Tobacco: How many years used: 30 how long ago did patient quit smokin years ago second hand exposure: No alcohol intake: current alcohol intake frequency: holidays/special occasions only Alcohol type: wine substance use type: does not use amy/synagogue: None seatbelt use: always ROS ROS Narrative Review of Systems: Constitutional: Patient admits to fever and chills with generalized weakness. Eyes: Patient denies changes in vision or discharge from eyes. ENT: Patient admits to sore throat, runny nose and sinus congestion but she denies ear pain. Resp: Patient admits to dyspnea on exertion with increasingly frequent nonproductive cough as per HPI. CV: Patient denies chest pain, palpitations, heart racing or lower extremity edema. GI: Patient admits to abdominal pain with nonbloody diarrhea and nausea but she denies vomiting. : Patient denies dysuria, hematuria or urinary frequency. MSK: Patient reports diffuse myalgias and generalized weakness. Skin: Patient denies rash, abscess, jaundice or wounds. Psych: Patient denies symptoms of uncontrolled depression or anxiety. Neuro: Patient admits to headache but she denies paresthesias or focal neurologic deficits. Allergy: Patient denies lip swelling, tongue swelling or urticaria. Hematology: Patient admits to easy bleeding and easy bruisability on apixaban. Endocrinology: Patient denies polyuria, polydipsia or polyphagia. 14 point review of systems otherwise negative except for positives noted above in HPI. Vital Signs Vital Signs Vital Signs: 10/07/24 19:34 10/07/24 20:29 10/07/24 20:29 Temperature 100.3 F H Temperature Source Oral Pulse Rate 136 H Respiratory Rate 24 H Respiratory Effort Respiratory Pattern Blood Pressure 152/78 H Blood Pressure Mean 102 Pulse Ox 96 92 Oxygen Delivery Method Room Air Room Air Room Air Oxygen Flow Rate (L/min) 10/07/24 20:31 10/07/24 20:31 10/07/24 20:33 Temperature Temperature Source Pulse Rate 110 H Respiratory Rate 12 Respiratory Effort Normal Respiratory Pattern Normal Blood Pressure 146/68 H Blood Pressure Mean 94 Pulse Ox 94 Oxygen Delivery Method Room Air Room Air Oxygen Flow Rate (L/min) 10/07/24 20:36 10/07/24 21:00 10/07/24 21:25 Temperature 100.2 F H 100.2 F H Temperature Source Oral Oral Pulse Rate 113 H 111 H Respiratory Rate 14 16 Respiratory Effort Respiratory Pattern Blood Pressure 146/68 H 149/58 H Blood Pressure Mean 94 88 Pulse Ox 95 96 81 Oxygen Delivery Method Room Air Nasal Cannula Room Air Oxygen Flow Rate (L/min) 2 10/07/24 21:25 10/07/24 22:00 10/07/24 23:00 Temperature 99.0 F 99.0 F Temperature Source Oral Oral Pulse Rate 102 H 95 Respiratory Rate 11 L 11 L Respiratory Effort Respiratory Pattern Blood Pressure 141/59 H 138/60 H Blood Pressure Mean 86 86 Pulse Ox 93 97 85 Oxygen Delivery Method Nasal Cannula Nasal Cannula Room Air Oxygen Flow Rate (L/min) 2 2 10/08/24 00:00 Temperature Temperature Source Pulse Rate 87 Respiratory Rate 14 Respiratory Effort Respiratory Pattern Blood Pressure 131/57 H Blood Pressure Mean 78 Pulse Ox Oxygen Delivery Method Oxygen Flow Rate (L/min) Weight Weight: 188 lb 0.869 oz Body Mass Index (BMI) 30.3 Physical Exam Const alert, oriented x3 and no apparent distress Constitutional Narrative: Obese with uncomfortable appearance. General Appearance: cooperative HEENT normocephalic, head/scalp atraumatic and hearing grossly normal bilaterally HEENT Narrative: Mucous membranes dry. Eyes PERRL, EOMs intact bilaterally and conjunctivae normal Neck no lymphadenopathy and supple Resp Resp Narrative: Diminished breath sounds with coarse rhonchi throughout. Auscultation: rhonchi Cardio regular rate and regular rhythm GI normal to inspection, nondistended, normoactive bowel sounds, soft to palpation, non-tender and non-distended GI Narrative: Obese. Extremity normal to inspection, full ROM and no clubbing, cyanosis or edema Skin Skin Narrative: Patient has no evidence of rash, abscess, wounds or jaundice. Neuro oriented x3, CN's II-XII intact bilaterally, moves all extremities and no focal motor deficits Sensorium / Orientation: awake, alert, oriented to person, oriented to place and oriented to time Speech: speech normal Psych affect normal Results Medical Records Data Attestation: I reviewed the patient's medical records Lab / Micro Data Attestation: I reviewed the patient's lab results. 10/07/24 19:52 10/07/24 19:52 Labs: Laboratory Results - last 24 hr 10/07/24 19:52: WBC 6.9, RBC 4.44, Hgb 12.4, Hct 39.4, MCV 88.7, MCH 27.9, MCHC 31.5 L, RDW Std Deviation 42.9, RDW Coeff of Lynn 13.2, Plt Count 201, MPV 9.5, Immature Gran % (Auto) 0.600, Neut % (Auto) 80.9 H, Lymph % (Auto) 8.7 L, [place] % (Auto) 9.6, Eos % (Auto) 0.1, Baso % (Auto) 0.1, Absolute Neuts (auto) 5.6, A bsolute Lymphs (auto) 0.60 L, Nucleated RBC % 0, Sodium 136, Potassium 3.9, Chloride 99, Carbon Dioxide 29.0, Anion Gap 8, BUN 17, Creatinine 1.13 H, Estim Creat Clear Calc 45.88, Est GFR (MDRD) Af Amer 60, Est GFR (MDRD) Non-Af 50 L, BUN/Creatinine Ratio 15.0, Glucose 112 H, Lactic Acid 1.6, Calcium 9.1, Troponin I High Sens 27 10/07/24 22:17: Troponin I High Sens 25 Micro: Microbiology 10/07/24 20:42 Mucosa - Nose SARS-CoV-2, Influenza & RSV (PCR) - Final Influenzae A Rhythm Strip Rhythm Strip: Sinus Tach Rate: 117 Ectopy: None Imaging Radiology Impression Chest X-Ray 10/07/24 19:37 IMPRESSION: No acute cardiopulmonary process. Reading Location: [facility] Assessment & Plan Assessment/Plan (1) Influenza A: (2) Respiratory insufficiency: (3) Hypoxia: (4) Generalized weakness: (5) Ambulatory dysfunction: (6) Adrenal insufficiency: (7) History of syncope: (8) Obesity (BMI 30.0-34.9): PLAN: Plan 1. Influenza A - Admit to general medical floor with telemetric monitoring under contact and droplet precautions. Continue Tamiflu begun in ER. Give supplemental vitamin D3, vitamin C and zinc to help boost immunity and hopefully speed recovery. 2. Respiratory Insufficiency due to #1 in the setting of former history of tobacco abuse - Wean supplemental oxygen as tolerated. 3. Generalized Weakness with Ambulatory Dysfunction and recent Syncopal event that is historically been triggered by acute illness attributable to #1 & #2 - PT/OT and Case Management to consult and treat on-rounds in the AM for further recommendations with help appreciated in advance. 4. History of adrenal insufficiency; on prednisone 5 mg daily with recent increase to 10 mg daily adding to the medical complexity of #1 - #3 - Give stress-dose Solu-Medrol at 125 mg IV once now and then resume prednisone 10 mg daily. 5. History of metastatic melanoma to lymph nodes; s/p tumor excision from Left upper arm followed by Dr. Palma of oncology with patient having no chemo for the past ~1-2 months adding to the burden f disease outlined from #1 - #4 - Noted. 6. Essential Hypertension; on metoprolol - Hold metoprolol if hypotension or syncopal episode recurs. 7. Hyperlipidemia; on atorvastatin - Resume statin and check Lipid Profile. 8. Obesity with a BMI of 30.4 this admission - Weight loss will be recommended. Check TSH. This complicates her case and may hamper recovery. 9. History of DVT/PE; on apixaban - Resume apixaban as before. 10. History of IVC filter placement (01/2024) - Noted. 11. History of duodenal mass; s/p resection by Dr. Antonio of gastroenterology - Noted. 12. Polyneuropathy; primarily in feet - Stable. 13. History of COVID-19 (2019) with seizure attributed to this infection - Noted. 14. History of cerebellar CVA - Noted. 15. Mild cognitive impairment - Stable. 16. History of cluster headache - Continue supplemental oxygen and give morphine IV prn for severe (level 6-10/10) pain. 17. History of occipital neuralgia - Noted. 18. GERD; on pantoprazole - Maintain PPI. 19. OA; s/p bilateral THR's - Stable. 20. DVT prophylaxis - Patient is already on apixaban for #9 which will be continued. Total time: Approximately (but not less than) 75 minutes. Charges/Coding Visit Charges Inpatient E&M: 56369 Init Hosp L3
[2024-10-08] MEDS: 0.9% Normal Saline (1000mL) 1,000 ML 999 ML IV (01:25)
[2024-10-08] MEDS: Oseltamivir Phosphate 75 MG Capsule PO (01:25)
[2024-10-08] MEDS: MethylPREDNISolone 125 MG/2 ML Vial IV (03:21)
[2024-10-08] MEDS: 0.9% Saline Lock 10 ML Syringe IV ×2 (03:21→10:01)
[2024-10-08] MEDS: Doxycycline 100 MG in Dextrose 5%-Water (250mL Bag) 250 ML 250 MG IV ×2 (04:01→10:03)
--- NOTE | 2024-10-08 07:25 | PN.HOSP_ITS ---
Reason for Visit Reason for Visit: Diagnoses Unspecified adrenocortical insufficiency (10/08/24) Obesity, class 1 (10/08/24) Influenza due to other identified influenza virus with other respiratory manifestations (10/08/24) Other abnormalities of breathing (10/08/24) Hypoxemia (10/08/24) Difficulty in walking, not elsewhere classified (10/08/24) Weakness (10/08/24) Personal history of other specified conditions (10/08/24) Subjective Subjective Feeling well currenlty. Objective Data Objective Data Vital Signs: Vital Signs Temp Pulse Resp BP Pulse Ox O2 Del Method O2 Flow Rate 36.7 C 85 18 129/60 H 96 Nasal Cannula 1 10/08/24 02:00 10/08/24 02:00 10/08/24 02:00 10/08/24 02:00 10/08/24 02:00 10/08/24 02:00 10/08/24 02:00 Oxygen Flow Rate (L/min) 1 Oxygen Delivery Method Nasal Cannula Weight: 84.6 kg Body Mass Index (BMI) 30.1 Intake & Output: Intake and Output for Last 24 Hours 10/06/24 10/07/24 10/08/24 23:59 23:59 23:59 Intake Total 1000 / 1000 1260 / 1260 Output Total 300 / 300 Balance 1000 / 1000 960 / 960 Lab / Micro Data 10/07/24 19:52 10/07/24 19:52 Labs: Laboratory Results - last 24 hr 10/07/24 19:52: WBC 6.9, RBC 4.44, Hgb 12.4, Hct 39.4, MCV 88.7, MCH 27.9, MCHC 31.5 L, RDW Std Deviation 42.9, RDW Coeff of Lynn 13.2, Plt Count 201, MPV 9.5, Immature Gran % (Auto) 0.600, Neut % (Auto) 80.9 H, Lymph % (Auto) 8.7 L, [place] % (Auto) 9.6, Eos % (Auto) 0.1, Baso % (Auto) 0.1, Absolute Neuts (auto) 5.6, A bsolute Lymphs (auto) 0.60 L, Nucleated RBC % 0, Sodium 136, Potassium 3.9, Chloride 99, Carbon Dioxide 29.0, Anion Gap 8, BUN 17, Creatinine 1.13 H, Estim Creat Clear Calc 45.88, Est GFR (MDRD) Af Amer 60, Est GFR (MDRD) Non-Af 50 L, BUN/Creatinine Ratio 15.0, Glucose 112 H, Lactic Acid 1.6, Calcium 9.1, Troponin I High Sens 27 10/07/24 22:17: Troponin I High Sens 25 Micro: Microbiology 10/07/24 20:42 Mucosa - Nose SARS-CoV-2, Influenza & RSV (PCR) - Final Influenzae A Radiography Diagnostic Testing: Radiology Impression Chest X-Ray 10/07/24 19:37 IMPRESSION: No acute cardiopulmonary process. Reading Location: [facility] Rhythm Strip Rhythm Strip: Sinus Tach Rate: 117 Ectopy: None Physical Exam Const alert and no apparent distress HEENT head/scalp atraumatic and moist oral mucous membranes Resp normal respiratory effort, no retractions, no use of accessory muscles and clear to auscultation bilaterally Cardio regular rate, regular rhythm, S1 normal heart sound and S2 normal heart sound GI normal to inspection, nondistended, normoactive bowel sounds and soft to palpation Neuro Sensorium / Orientation: awake and alert Assessment & Plan Assessment/Plan (1) Influenza A: (2) Respiratory insufficiency: (3) Hypoxia: (4) Generalized weakness: (5) Ambulatory dysfunction: (6) Adrenal insufficiency: (7) History of syncope: (8) Obesity (BMI 30.0-34.9): PLAN: Plan Influenza A * started on Tamiflu. * Check home oxygen evaluation. Debility * PT OT eval and treat. DVT prophylaxis - Patient is already on apixaban Charges/Coding Visit Charges Inpatient E&M: 94066 Subs Hosp L2
[2024-10-08] MEDS: Pantoprazole Sodium 40 MG Tablet PO (08:23)
[2024-10-08] MEDS: Budesonide 3 MG CAPSULE.EC 9 MG PO (08:23)
[2024-10-08] MEDS: Lisinopril 40 MG Tablet PO (08:23)
[2024-10-08] MEDS: predniSONE 10 MG Tablet PO (08:24)
[2024-10-08] MEDS: APIXABAN 5 MG TABLET PO (08:24)
[2024-10-08] MEDS: Metoprolol(XL)Succ 50 MG Tablet PO (08:24)
--- NOTE | 2024-10-08 10:45 | CASEMGMT ---
RN CM P[employer]ER AND [employer]INTS RESTORER CM?to room to meet with patient for initial transition planning/care coordination assessment. RN CM?introduced self and role at [facility]. Pt voices understanding and consents to assessment?at this time. Pt resting in bed in no distress at this time. Pt is A/O at this time and answers all questions appropriately. Care providers, pharmacy, and demographics verified/updated at this time. Strata:?2 PCP: Dr Marvin Malloy Specialists: Dr Antonio-GI, Dr Joseph-neuro, Dr Malhotra-endocrinology, Dr Ceja-vascular, Dr Palma-onc, Dr Shen-POWDERED METAL SUPERVISOR, Dr Chanel-OR @ [facility] Preferred Pharmacy: [facility] @ discharge. Otherwise, goes to [facility] [facility] Benef[facility]: yes Living Will/HPOA: Has LW and HCPOA, who is her , Timbo LNOK: , Timbo Living Arrangements: Lives w/ in 2-story home w/3 steps to enter. Indep w/ADL's. is present for bathing. manages her medications. They share home mgnt tasks. Transportation:? drives. DME: States has the following DME: Uses no AD to ambulate, but does have shower bench, cane, and walker available, if needed. Pt states no need for further DME at this time. HHC/SNF: Pt has been to [facility] in the past and has had [facility]. She has went to OP therapy @ [facility]. Pt declines needs at this time. Made aware to ask for CM if any needs arise. Also made aware, if once she returns home she feels she wants HHC or OP therapy, to contact PCP. Pt was made aware of [facility] homebound criteria for HHC. Pt wishes to return home and states has no concerns with going home at time of discharge. CM?to follow for any discharge planning/needs. Pt voices no further concerns/needs at this time. Advised pt to ask for CM?if any further questions/concerns/needs arise. Voices understanding. PLAN: Home [employer] CASSIDY RN, CM
--- NOTE | 2024-10-08 13:55 | DS.PCM_ITS ---
Providers Date of Admission: 10/08/24 Primary Care Physician: Dr. Marvin Malloy MD Reason For Visit: INFLUENZA A, RESPIRATORY INSUFFICIENCY AND RECENT Diagnosis Discharge Diagnosis (1) Influenza A: Status: Acute Code(s): J10.1 - Influenza due to other identified influenza virus with other respiratory manifestations (2) Generalized weakness: Status: Acute Code(s): R53.1 - Weakness (3) Ambulatory dysfunction: Status: Acute Code(s): R26.2 - Difficulty in walking, not elsewhere classified (4) Adrenal insufficiency: Status: Chronic Code(s): E27.40 - Unspecified adrenocortical insufficiency (5) History of syncope: Status: Acute Code(s): Z87.898 - Personal history of other specified conditions (6) Obesity (BMI 30.0-34.9): Status: Acute Code(s): E66.811 - Obesity, class 1 Plan Influenza A * started on Tamiflu. * Did well with ambulation and does not require oxygen upon discharge. DVT prophylaxis - Patient is already on apixaban DC home. Pt did much better than initially anticipated Medications at Discharge Home Medications metoprolol succinate 50 mg tablet,extended release 24 hr 50 mg PO DAILY heart rate ##0 08/15/20 atorvastatin 40 mg tablet 40 mg PO DAILY cholesterol 09/24/20 lisinopril 20 mg tablet 40 mg PO DAILY blood pressure 07/13/23 acetaminophen 500 mg tablet 1,000 mg (2 x 500 mg) PO Q6H PRN PRN Pain Score 1-5 #0 tabs 07/27/23 apixaban 5 mg tablet (Eliquis) 5 mg PO BID blood thinner 30 days #60 tabs 07/27/23 pantoprazole 40 mg tablet,delayed release 40 mg PO DAILY #30 tabs 08/29/23 melatonin 3 mg tablet 3 mg PO HS PRN sleep 10/18/23 ondansetron HCl 8 mg tablet 8 mg PO Q8H PRN nausea and vomiting 11/02/23 Bacillus coagulans-inulin 1 billion cell-250 mg capsule (Probiotic with Prebiotic) 1 cap PO DAILY 03/27/24 prednisone 5 mg tablet 5 mg PO DAILY #100 tabs 03/27/24 tizanidine 4 mg capsule 4 mg PO Q8H PRN muscle spasticity 03/27/24 budesonide 3 mg capsule,delayed,extended release 9 mg (3 x 3 mg) PO DAILY #180 ea 04/17/24 Weight / BMI Weight Weight: 84.6 kg Body Mass Index (BMI) 30.1 ABG / Lab / Microbiology Data 10/07/24 19:52 10/07/24 19:52 Laboratory: Laboratory Results - last 24 hr 10/07/24 19:52: WBC 6.9, RBC 4.44, Hgb 12.4, Hct 39.4, MCV 88.7, MCH 27.9, MCHC 31.5 L, RDW Std Deviation 42.9, RDW Coeff of Lynn 13.2, Plt Count 201, MPV 9.5, Immature Gran % (Auto) 0.600, Neut % (Auto) 80.9 H, Lymph % (Auto) 8.7 L, [place] % (Auto) 9.6, Eos % (Auto) 0.1, Baso % (Auto) 0.1, Absolute Neuts (auto) 5.6, A bsolute Lymphs (auto) 0.60 L, Nucleated RBC % 0, Sodium 136, Potassium 3.9, Chloride 99, Carbon Dioxide 29.0, Anion Gap 8, BUN 17, Creatinine 1.13 H, Estim Creat Clear Calc 45.88, Est GFR (MDRD) Af Amer 60, Est GFR (MDRD) Non-Af 50 L, BUN/Creatinine Ratio 15.0, Glucose 112 H, Lactic Acid 1.6, Calcium 9.1, Troponin I High Sens 27 10/07/24 22:17: Troponin I High Sens 25 Microbiology: Microbiology 10/07/24 20:42 Mucosa - Nose SARS-CoV-2, Influenza & RSV (PCR) - Final Influenzae A Radiography Diagnostic Testing: Radiology Impression Chest X-Ray 10/07/24 19:37 IMPRESSION: No acute cardiopulmonary process. Reading Location: [facility] Instructions Discharge Diet: No restrictions DC O2, CPAP, BIPAP Needs RN Home O2 Qualification: Home O2 Qualification: Is the patient on home oxygen No 10/08/24 10:09 Home O2 Qualification: AT REST 1- Pulse Ox at rest 97 10/08/24 10:09 Home O2 Qualification: WITH AMBULATION 1- Pulse Ox with ambulation 95 10/08/24 10:09 1- Oxygen Flow Rate with 0 10/08/24 10:09 ambulation Home O2 Discharge instructions: No Meaningful Use Info Meaningful Use Meaningful Use Diagnoses (Choose all that apply): None applicable Ischemic Stroke Statin Dosing Therapy Reference: STATIN DOSE THERAPY REFERENCE: * Patients > 75 years receive moderate or high dose statin therapy. * Patients 75 years or YOUNGER should receive HIGH intensity statin dose unless contraindicated. You will be required to document reason for non-treatment if statin daily dose does not meet guidelines. HIGH DOSE STATIN THERAPY DAILY Atorvastatin > than or = to 40 mg Rosuvastatin > than or = to 20 mg Amlodipine + Atorvastatin > than or = to 2.5/40 mg Ezetimibe + Simvastatin 10/80 mg Simvastatin 80mg Discharge Plan Admission Admit Date/Time: 10/08/24 02:35 Primary Reason for Your Visit: Influenza. Attending Provider: Sanjeev Morales Primary Care Provider: Marvin Malloy Consulting Providers: Black Cruz Discharge Orders/Prescriptions Prescriptions: Continued atorvastatin 40 mg tablet 40 mg PO DAILY melatonin 3 mg tablet 3 mg PO HS PRN (Reason: sleep) budesonide 3 mg capsule,delayed,extend.release 9 mg PO DAILY Qty: 180 3RF tizanidine 4 mg capsule 4 mg PO Q8H PRN (Reason: muscle spasticity) Probiotic with Prebiotic 1 billion-250 cell-mg capsule 1 cap PO DAILY prednisone 5 mg tablet 5 mg PO DAILY Qty: 100 3RF Rx Instructions: double dose for fever/acute illness metoprolol succinate 50 MG tablet 50 mg PO DAILY Qty: 0 0RF Rx Instructions: Hold if heart rate less than 60/min lisinopril 20 mg tablet 40 mg PO DAILY acetaminophen 500 mg Tablet 1,000 mg PO Q6H PRN PRN (Reason: Pain Score 1-5) Qty: 0 0RF Eliquis 5 mg Tablet 5 mg PO BID 30 Days Qty: 60 0RF Patient Comments: HOLD 2 DAYS PRIOR TO PROCEDURE PER pantoprazole 40 mg Tablet,Delayed Release (Dr/Ec) 40 mg PO DAILY Qty: 30 0RF ondansetron HCl 8 mg tablet 8 mg PO Q8H PRN (Reason: nausea and vomiting) Patient Comments: take 1 tablet by mouth every 8 hours if needed for nausea and vomiting Referrals / Follow Up: Marvin Malloy MD [Primary Care Provider] - Disposition Disposition (needs filled in before D/C Order can be placed): Home, Self Care Charges/Coding Visit Charges Inpatient E&M: 80891 Disch Hosp
--- NOTE | 2024-10-08 14:25 | CASEMGMT ---
Patient has order for discharge. RN CM in to discuss needs at discharge. Patient did not qualify for home oxygen. Patient denies needs or help at discharge. Patient had no further questions or concerns.
== END 2024-10-08 16:13 | disposition home or self-care (01) | DRG 194 ==
LOC: ED 10-08 00:57 → PCU 10-08 04:29
PROVIDERS: Admitting Provider Internal Medicine; Emergency Provider Emergency Medicine; PCP Family Medicine
DX: J10.1 Influenza due to other identified influenza virus with other respiratory manifestations (principal); E27.40 Unspecified adrenocortical insufficiency; C77.9 Secondary and unspecified malignant neoplasm of lymph node, unspecified; I10 Essential (primary) hypertension; Z68.30 Body mass index [BMI] 30.0-30.9, adult; E78.5 Hyperlipidemia, unspecified; G31.84 Mild cognitive impairment of uncertain or unknown etiology; G62.9 Polyneuropathy, unspecified; M19.90 Unspecified osteoarthritis, unspecified site; K21.9 Gastro-esophageal reflux disease without esophagitis; R26.2 Difficulty in walking, not elsewhere classified; Z79.52 Long term (current) use of systemic steroids; Z86.16 Personal history of COVID-19; Z80.8 Family history of malignant neoplasm of other organs or systems; Z86.73 Personal history of transient ischemic attack (TIA), and cerebral infarction without residual deficits; Z82.3 Family history of stroke; Z79.01 Long term (current) use of anticoagulants; Z82.5 Family history of asthma and other chronic lower respiratory diseases; R09.02 Hypoxemia; Z87.891 Personal history of nicotine dependence; E66.811 Obesity, class 1; R53.81 Other malaise; Z86.711 Personal history of pulmonary embolism; Z86.718 Personal history of other venous thrombosis and embolism; R53.1 Weakness
CPT/HCPCS: 71046; 80048; 83605; 84484; 85025; 87040; 87631; 93005; 99285; A4216

== ENCOUNTER 2024-12-04 09:55 | Outpatient (CLI) | payer MEDICARE, OTHER, SELFPAY ==
[2024-12-04 12:44] LABS: Absolute Lymphocyte Count 1.44 X10^3/uL (0.83-4.51); Absolute Neutrophil Count 2.3 X10^3/uL (2.0-7.7); Basophil# 0.02 X10^3/uL; Basophil% 0.5 % (0-1); Eosinophil# 0.08 X10^3/uL; Eosinophils% 1.9 % (0-5); Hemoglobin 9.7 g/dL (12.0-15.0); Lymphocyte # 1.44 X10^3/ul (0.83-4.51); Lymphocyte % 33.6 % (19-41); Mean Corp Hgb Conc 30.3 g/dL (32-36); Mean Corpuscular Hgb 26.4 pg (27.0-32.0); Mean Platelet Vol. 9.9 fl (6.2-12.0); Monocyte# 0.45 X10^3/uL; Monocyte% 10.5 % (0-10); NRBC Flagged by Analyzer 0 % (0-5); Neutrophil # 2.25 X10^3/uL (2.7-7.7); Neutrophil % 52.6 % (47-70); Platelet Count 232 K/mm3 (150-450); RBC Distribution Width CV 13.7 % (11.6-14.6); RBC Distribution Width SD 43.3 fl (35.1-43.9); Red Blood Count 3.68 M/mm3 (4.2-5.4); White Blood Count 4.3 K/mm3 (4.4-11.0)
[2024-12-04 13:30] LABS: ALB/GLOB Ratio 1.6 RATIO (0.9-2.4); AST(SGOT) 15 U/L (<=31); Alanine Aminotransfer ALT/SGPT 15 U/L (<=34); Alkaline Phosphatase 80 U/L (35-104); Anion Gap 13 (5-15); BUN 20 mg/dL (4-19); BUN/Creat Ratio 22.6 RATIO (10-20); Calcium,Total 9.2 mg/dL (7.6-11.0); Carbon Dioxide 23.5 mmol/L (21.0-32.0); Chloride 106 mmol/L (98-108); Cholesterol 185 mg/dL (<=200); Creatinine, Serum 0.87 mg/dL (0.70-1.20); EST Glomerular Filtration Rate 68 (>60); Globulin 2.5 g/dL (2.2-4.2); Glucose 92 mg/dL (70-99); High Density Lipoprotein 59 mg/dL; Low Density Lipoprotein Calc. 82 mg/dL; Magnesium 2.1 mg/dL (1.5-2.2); Protein, Total 6.5 g/dL (5.9-8.4); Sodium Level 143 mmol/L (133-145); Total Bilirubin 0.33 mg/dL (0.00-1.30); Triglycerides 222 mg/dL; Very Low Density Lipoprotein 44 mg/dL (5-40); Vitamin B12 539 pg/mL (180-914); Vitamin D,25 Hydroxy 15.6 ng/mL (30-100); cholesterol:hdl ratio screen 3.16
[2024-12-05 11:17] LABS: Ferritin 14 ng/mL (22-378); Iron 29 ug/dL (50-170); Iron Binding Capacity,Total 336 ug/dL (250-450); Iron Binding Capacity,Unsat 307 ug/dL (228-428)
== END 2024-12-04 23:59 | disposition home or self-care (01) ==
LOC: MTLAB 09:57
PROVIDERS: PCP Family Medicine; Referring Provider Family Medicine; Visit Provider Family Medicine
DX: D64.9 Anemia, unspecified (principal); R53.83 Other fatigue; I10 Essential (primary) hypertension; E78.5 Hyperlipidemia, unspecified
CPT/HCPCS: 36415; 80053; 80061; 82306; 82607; 82728; 83540; 83550; 83735; 84439; 84443; 85025

== ENCOUNTER → 2024-12-29 | Outpatient (CLI) | payer MEDICARE, OTHER, SELFPAY ==
[2024-12-29 11:47] LABS: Absolute Lymphocyte Count 1.21 X10^3/uL (0.83-4.51); Absolute Neutrophil Count 5.6 X10^3/uL (2.0-7.7); Basophil# 0.02 X10^3/uL; Basophil% 0.3 % (0-1); Eosinophil# 0.06 X10^3/uL; Eosinophils% 0.8 % (0-5); Hematocrit 30.1 % (37-47); Hemoglobin 9.1 g/dL (12.0-15.0); Lymphocyte # 1.21 X10^3/ul (0.83-4.51); Lymphocyte % 15.8 % (19-41); Mean Corp Hgb Conc 30.2 g/dL (32-36); Mean Corpuscular Hgb 25.1 pg (27.0-32.0); Mean Corpuscular Volume 82.9 fL (81-99); Monocyte# 0.72 X10^3/uL; Monocyte% 9.4 % (0-10); NRBC Flagged by Analyzer 0 % (0-5); Neutrophil # 5.59 X10^3/uL (2.7-7.7); Neutrophil % 72.8 % (47-70); Platelet Count 234 K/mm3 (150-450); RBC Distribution Width SD 41.8 fl (35.1-43.9); RET-HE 21.6 pg (30-35); Red Blood Count 3.63 M/mm3 (4.2-5.4); Reticulocyte Count 1.79 % (0.5-1.5); White Blood Count 7.7 K/mm3 (4.4-11.0)
[2024-12-29 12:29] LABS: Ferritin 13 ng/mL (22-378)
[2024-12-29 12:30] LABS: Iron 28 ug/dL (50-170); LDH 232 U/L (84-246)
[2024-12-30 05:07] LABS: Haptoglobin 216 mg/dL (42-346)
== END | disposition home or self-care (01) ==
LOC: LAB 10:50
PROVIDERS: PCP Family Medicine; Referring Provider Internal Medicine Gastroenterology; Visit Provider Internal Medicine Gastroenterology
DX: D64.9 Anemia, unspecified (principal)
CPT/HCPCS: 36415; 82728; 83010; 83540; 83615; 85025; 85045

== ENCOUNTER → 2025-01-20 | Outpatient (CLI) | payer MEDICARE, OTHER, SELFPAY ==
--- NOTE | 2025-01-20 16:55 | RAD_ITS ---
PROCEDURE: CHEST PA AND LATERAL 01/20/2025 REASON FOR EXAM: BRONCHITIS TECHNIQUE: Frontal and lateral views of the chest. COMPARISON: 10/07/2024 FINDINGS: The lungs appear clear. The cardiac and mediastinal contours appear within limits. A retrievable appearing inferior vena cava filter is again noted with similar appearing angulated positioning. The filter also again appears high/caudal in location possibly above the renal veins. There is again a linear metallic density seen at the left posterior hilar area concerning for a possible displaced/embolized limb of the filter or possible guidewire fragment, unchanged. The visualized osseous structures appear within limits. RAD/Chest PA and Lateral IMPRESSION: No evidence of acute disease. Findings relating to an inferior vena cava filter as detailed above. Reading Location: [id number]
== END | disposition home or self-care (01) ==
LOC: MTRAD 16:54
PROVIDERS: PCP Family Medicine; Referring Provider Family Medicine; Visit Provider Family Medicine
DX: J20.9 Acute bronchitis, unspecified (principal)
CPT/HCPCS: 71046

== ENCOUNTER 2025-01-22 10:53 | Inpatient (IN) | payer MEDICARE, OTHER, SELFPAY ==
[2025-01-22] VITALS (8 sets, daily range): BP systolic 104–142; BP diastolic 48–92; PULSE 68–87; RESP 12–18; TEMP 36.4–37.8; O2SAT 92–100; BMI 28.0
--- NOTE | 2025-01-22 11:27 | ED.VIS.GI ---
HPI HPI - GI History of Present Illness Chief Complaint: Abd Pain Detail of Chief Complaint: Cough, weakness, diarrhea Informant: patient Narrative Narrative: Patient presents to the emergency department with complaint of cough that started about 5 days ago. Patient states that she was seen by her primary care physician 2 days ago started on a Z-Raymond and an inhaler. Today she just felt very weak and had 1 episode of watery stool. She denies any blood in her stool. Patient also has history of melanoma that she is being treated for currently and has been dealing with it for about 3 years. Not undergoing chemo as apparently her melanoma is not responsive to chemo. Patient denies any abdominal pain. She has had some nausea but no vomiting. Cough mostly nonproductive. [facility] Medical History (Updated 01/22/25 @ 14:[address] Rogers Atkins DO) Chronic pain Obesity (BMI 30.0-34.9) History of syncope Generalized abdominal pain Wears glasses Arthritis Neuropathy History of pain when walking History of echocardiogram Cardiology follow-up encounter History of atrial fibrillation Syncopal episodes Metastatic melanoma Duodenal mass Post-menopausal History of steroid therapy Anemia History of immunosuppression therapy Seizures Adrenal insufficiency 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 Bilateral pulmonary embolism Pulmonary emboli Left leg DVT Anticoagulated Former smoker Mild cognitive impairment COVID-19 Polyneuropathy Essential hypertension GERD (gastroesophageal reflux disease) Hyperlipidemia Home Medications ?Medication ?Instructions ?Recorded ?Last Taken ?Type metoprolol succinate 50 mg 50 mg PO DAILY heart rate ##0 08/15/20 10/06/24 Rx tablet,extended release 24 hr atorvastatin 40 mg tablet 40 mg PO DAILY cholesterol 09/24/20 10/06/24 History acetaminophen 500 mg tablet 1,000 mg (2 x 500 mg) PO Q6H PRN 07/27/23 10/07/24 07:20 Rx PRN Pain Score 1-5 #0 tabs apixaban 5 mg tablet (Eliquis) 5 mg PO BID blood thinner 30 days 07/27/23 10/06/24 Rx #60 tabs pantoprazole 40 mg tablet,delayed 40 mg PO DAILY #30 tabs 08/29/23 10/06/24 Rx release melatonin 3 mg tablet 3 mg PO HS PRN sleep 10/18/23 Unknown History ondansetron HCl 8 mg tablet 8 mg PO Q8H PRN nausea and vomiting 11/02/23 Unknown History Bacillus coagulans-inulin 1 1 cap PO DAILY 03/27/24 10/06/24 History billion cell-250 mg capsule (Probiotic with Prebiotic) prednisone 5 mg tablet 5 mg PO DAILY #100 tabs 03/27/24 10/07/24 Rx tizanidine 4 mg capsule 4 mg PO Q8H PRN muscle spasticity 03/27/24 Unknown History budesonide 3 mg 9 mg (3 x 3 mg) PO DAILY #180 ea 04/17/24 10/06/24 Rx capsule,delayed,extended release amlodipine 5 mg tablet 5 mg PO DAILY 01/22/25 Unknown History azithromycin 250 mg tablet 250 mg PO DAILY 01/22/25 Unknown History cholecalciferol (vitamin D3) 1,250 1,250 mcg PO QWEEK 01/22/25 Unknown History mcg (50,000 unit) capsule lisinopril 40 mg tablet 40 mg PO DAILY 01/22/25 Unknown History Allergy/AdvReac Type Severity Reaction Status Date / Time Sulfa (Sulfonamide Allergy Severe Swelling Verified 01/22/25 10:55 Antibiotics) amoxicillin AdvReac Severe Diarrhea Verified 01/22/25 10:55 sulfamethoxazole (From AdvReac Severe Anaphylaxis Verified 01/22/25 10:55 Bactrim) trimethoprim (From Bactrim) AdvReac Severe Swelling Verified 01/22/25 10:55 Family History Brother Alcoholism Asthma Myocardial infarction, Onset Age: 52 Seizures Skin cancer Sister CVA (cerebral vascular accident) Asthma Grandfather Asthma Father Myocardial infarction, Onset Age: 46 Had at age 46 & 62 Mother Myocardial infarction, Onset Age: 82 Surgical History (Updated 10/16/24 @ 00:02 by Christa Catalan) Hx of surgical procedure History of total left hip replacement History of amputation of finger History of right hip replacement History of cataract surgery History of eye surgery Social History household members: spouse Smoking Status: Former smoker Tobacco: How many years used: 30 how long ago did patient quit smokin years ago second hand exposure: No alcohol intake: current alcohol intake frequency: holidays/special occasions only Alcohol type: wine substance use type: does not use amy/confucianism: None seatbelt use: always ROS ROS ED Review of Systems ROS Unobtainable: other Constitutional Constitutional ED: Reports lethargy; Denies chills, fever(s), sweats or weight loss Eyes Eyes: Denies blurry vision, change in vision or diplopia ENT ENT ED: Denies rhinorrhea or sore throat Cardiovascular Cardiovascular: Denies chest pain, orthopnea or racing heartbeat Respiratory/Chest Respiratory/Chest: Reports cough, dyspnea and dyspnea on exertion; Denies orthopnea or sputum Gastrointestinal Gastrointestinal: Reports diarrhea and nausea; Denies abdominal pain or vomiting Genitourinary Genitourinary ED: Denies dysuria, hematuria or urinary frequency Musculoskeletal Musculoskeletal: Denies arthralgias, back pain, myalgias or neck pain Integumentary Denies abscess, Abrasions or rash Neurologic Neurologic: Denies headache(s) or weakness Psychiatric Psychiatric: Denies anxiety, depression or suicidal thoughts Endocrine Endocrinology: Denies polydipsia, polyphagia or polyuria Hematologic/Lymphatic Hematologic/Lymphatic: Denies easy bleeding, easy bruising or lymphadenopathy Allergic/Immunologic Allergic/Immunologic ED: Denies mouth swelling, tongue swelling or urticaria EXAM Physical Exam Const Vital Signs: 01/22/25 10:54 01/22/25 11:19 01/22/25 12:57 Temperature 99 F 98.3 F Temperature Source Temporal Oral Pulse Rate 80 74 75 Respiratory Rate 14 17 16 Blood Pressure 113/51 L 129/56 H 127/48 H Blood Pressure Mean 71 80 74 Pulse Ox 100 92 99 Oxygen Delivery Method Room Air Room Air Room Air 01/22/25 13:57 01/22/25 15:00 Temperature 98.3 F Temperature Source Oral Pulse Rate 75 79 Respiratory Rate 16 12 Blood Pressure 132/59 H 104/92 H Blood Pressure Mean 83 96 Pulse Ox 94 93 Oxygen Delivery Method Room Air Room Air Positive well nourished and well developed General Appearance ED: well developed and NAD HEENT Reports TM's clear and moist mucous membranes normocephalic and atraumatic; Negative for trauma or tenderness Tympanic Membrane ED: Yes TM's clear Eyes PERRL and EOMs intact bilaterally General Eye ED: Negative for pale conjunctiva or scleral icterus Neck no lymphadenopathy, supple and no JVD General: Negative for tenderness Chest Wall inspection of chest normal and palpation of chest normal Chest: Negative for tenderness Resp normal respiratory effort and clear to auscultation bilaterally Effort and Inspection: Negative for respiratory distress or pain with movement Auscultation: Negative for rhonchi, wheezes or diminished lung sounds Cardio regular rate, regular rhythm, S1 normal heart sound, S2 normal heart sound and no murmurs Peripheral Pulses: pulses 2+ throughout GI normal to inspection, nondistended, normoactive bowel sounds, soft to palpation, non-tender, non-distended and no masses Back/Spine no CVA tenderness and no thoracic nor lumbar tenderness Extremity normal to inspection General Extremety ED: Negative for edema General Extremity: Negative for edema Neuro oriented x3, CN's II-XII intact bilaterally, no sensory deficits noted and gait normal Sensorium / Orientation: awake, alert, oriented to person, oriented to place and oriented to time Motor Exam: strength 5/5 throughout and strength abnormal Psych mental status grossly normal Skin no rashes or lesions noted and no wounds MDM MDM MDM Narrative Medical decision making narrative: Patient presents with generalized weakness and complaint of diarrhea and feeling dehydrated. Has had URI symptoms for 5 days. Recently started on Zithromax. Patient has been undergoing treatment for melanoma for the last 3 years and currently is considered cancer free. IV line established. EKG obtained showed sinus rhythm with rate of 76 bpm with no acute ST segment changes. CBC with differential shows white blood cell count of 5.9 with hemoglobin 8.2 and platelet count of 227. Chemistries unremarkable. BUN 19 and creatinine 1.08. LFTs unremarkable. Urinalysis ordered and pending. 1 view chest x-ray on my interpretation shows no evidence of infiltrate or pneumothorax or acute disease process. After discussing results with patient her presented to the emergency department who states that the reason he called the squad is because patient passed out while on the toilet. At that time she had complained of some lower abdominal discomfort. He was able to hold onto her so she did not injure herself and then started coming to. She was clammy at the time. Patient apparently does have history of similar episodes in the past. Patient states she is just feeling weak and not feeling well and does not feel that she will do well at home and feels that she needs continued hydration. Will discuss with hospitalist to evaluate patient for observation. Suspect likely vasovagal episode regarding the syncope. Patient has only had 1 episode of diarrhea and has been unable to give me a sample as I ordered C. difficile as patient has history of C. difficile and I also ordered stool for enteric pathogens. Lab Data Attestation: I reviewed the patient's lab results. Labs: Laboratory Results - last 24 hr 01/22/25 01/22/25 11:10 14:22 WBC 5.9 RBC 3.53 L Hgb 8.2 L Hct 27.9 L MCV 79.0 L MCH 23.2 L MCHC 29.4 L RDW Std Deviation 42.0 RDW Coeff of Lynn 14.6 Plt Count 227 MPV 9.9 Immature Gran % (Auto) 0.500 Neut % (Auto) 73.3 H Lymph % (Auto) 15.5 L [place] % (Auto) 9.0 Eos % (Auto) 1.5 Baso % (Auto) 0.2 Absolute Neuts (auto) 4.3 Absolute Lymphs (auto) 0.91 Nucleated RBC % 0 Sodium 138 Potassium 3.6 Chloride 102 Carbon Dioxide 23.4 Anion Gap 12 BUN 19 Creatinine 1.08 Est GFR (MDRD) Non-Af 53 L BUN/Creatinine Ratio 18.0 Glucose 118 H Calcium 8.9 Total Bilirubin 0.27 AST 19 ALT 15 Alkaline Phosphatase 79 Total Protein 6.4 Albumin 3.8 Globulin 2.6 Albumin/Globulin Ratio 1.5 Urine Color Yellow Urine Clarity Clear Urine pH 6.5 Ur Specific [place] 1.010 Urine Protein 15 H Urine Glucose (UA) Normal Urine Ketones Negative Urine Occult Blood 10 H Urine Nitrite Negative Urine Bilirubin Negative Urine Urobilinogen Normal Ur Leukocyte Esterase 100 H Radiography Diagnostic Testing: Clinical Impression(s) from Imaging Studies Chest X-Ray 01/22/25 14:40 IMPRESSION: No Acute Findings. Reading Location: [facility] EKG Initial EKG: Attestation: I personally reviewed and interpreted this EKG as follows: Comments: Sinus rhythm with ventricular rate of 76 bpm with no acute ST segment changes Discharge Plan Dx/Rx/DC Orders Clinical Impression: Viral URI, Syncope, Weakness Disposition Disposition: [facility]
[2025-01-22] MEDS: Ondansetron 4 MG/2 ML Vial IV (11:32)
[2025-01-22] MEDS: 0.9% Normal Saline (1000mL) 1,000 ML 999 ML IV ×2 (11:32→12:48)
[2025-01-22 11:35] LABS: Absolute Lymphocyte Count 0.91 X10^3/uL (0.83-4.51); Absolute Neutrophil Count 4.3 X10^3/uL (2.0-7.7); Basophil# 0.01 X10^3/uL; Basophil% 0.2 % (0-1); Eosinophil# 0.09 X10^3/uL; Eosinophils% 1.5 % (0-5); Hematocrit 27.9 % (37-47); Hemoglobin 8.2 g/dL (12.0-15.0); Lymphocyte # 0.91 X10^3/ul (0.83-4.51); Lymphocyte % 15.5 % (19-41); Mean Corp Hgb Conc 29.4 g/dL (32-36); Mean Corpuscular Hgb 23.2 pg (27.0-32.0); Mean Platelet Vol. 9.9 fl (6.2-12.0); Monocyte# 0.53 X10^3/uL; NRBC Flagged by Analyzer 0 % (0-5); Neutrophil % 73.3 % (47-70); Platelet Count 227 K/mm3 (150-450); RBC Distribution Width CV 14.6 % (11.6-14.6); Red Blood Count 3.53 M/mm3 (4.2-5.4); White Blood Count 5.9 K/mm3 (4.4-11.0)
[2025-01-22 12:20] LABS: ALB/GLOB Ratio 1.5 RATIO (0.9-2.4); AST(SGOT) 19 U/L (<=31); Alanine Aminotransfer ALT/SGPT 15 U/L (<=34); Albumin, Serum 3.8 g/dL (3.4-4.8); Alkaline Phosphatase 79 U/L (35-104); Anion Gap 12 (5-15); BUN 19 mg/dL (4-19); Calcium,Total 8.9 mg/dL (7.6-11.0); Carbon Dioxide 23.4 mmol/L (21.0-32.0); Chloride 102 mmol/L (98-108); Creatinine, Serum 1.08 mg/dL (0.70-1.20); EST Glomerular Filtration Rate 53 (>60); Globulin 2.6 g/dL (2.2-4.2); Glucose 118 mg/dL (70-99); Potassium 3.6 mmol/L (3.3-5.1); Protein, Total 6.4 g/dL (5.9-8.4); Sodium Level 138 mmol/L (133-145); Total Bilirubin 0.27 mg/dL (0.00-1.30)
--- NOTE | 2025-01-22 14:13 | EKG12_ITS ---
Test Reason : SYNC Blood Pressure : */* mmHG Vent. Rate : 76 BPM Atrial Rate : 76 BPM P-R Int : 178 ms QRS Dur : 80 ms QT Int : 390 ms P-R-T Axes : 49 46 64 degrees QTcB Int : 438 ms Normal sinus rhythm Normal ECG Confirmed by Shorty Simmons ([id number]), editor continuity and script CLAYTON QUINONES ([id number]) on 01/26/2025 11:36:59 AM Referred By: Confirmed By: Shorty Simmons
[2025-01-22 14:39] LABS: Mucous, Urine 0 SEEN /hpf (<or=2+)
--- NOTE | 2025-01-22 14:40 | RAD_ITS ---
PROCEDURE: CHEST 1 VIEW (PORTABLE) 01/22/2025 REASON FOR EXAM: COUGH TECHNIQUE: Frontal view of the chest. COMPARISON: Prior study dated January 20, 2025 FINDINGS: Hardware: EKG electrodes are seen. Heart: The heart is nonenlarged. Lungs: The lungs are clear. Bones: Degenerative changes are identified within the thoracic spine. Other: RAD/Chest 1 View (Portable) IMPRESSION: No Acute Findings. Reading Location: [facility]
[2025-01-22 15:00] LABS: Color, Urine Yellow (Yellow); Glucose, Dipstick Normal (Normal); Ketone-Dipstick Negative (Negative); Leukocyte Esterase-Dipstick 100 /ul (Negative); Nitrite-Dipstick Negative (Negative); Occult Blood-Urine 10 /ul (Negative); Protein-Dipstick 15 mg/dl (Negative); Urine Bilirubin Dipstick Negative (Negative); Urine Clarity Clear (Clear); Urine Urobilinogen Normal (Normal); Urine pH 6.5 (5.0 - 8.0)
[2025-01-22 15:09] LABS: Bacteria 1+ /hpf (None Seen); Red Blood Cells-Urine 0-5 SEEN /hpf (0-5); Squamous Epithelial Cells - UA 0-5 SEEN /hpf (5-10); White Blood Cells 0-5 SEEN /hpf (0-5)
--- NOTE | 2025-01-22 15:24 | HP.PCM.HOS_ITS ---
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 Most of the history was provided by the who takes care of her and also manages most of her medications. The notes that she her oral intake had not decreased since her early infection for the last 1 week and she has been feeling progressively tired. No associated fever but she was recently started on azithromycin for her symptoms. She has a history of chronic steroid dependence and is on prednisone 5 mg daily and was supposed to increase to 10 mg but he forgot to do so and she is still taking 5 mg daily. At the time of presentation to the ED hide WBC of 5.9, hemoglobin 8.2, platelet count 227 with sodium 138, potassium 3.6, BUN of 19, creatinine 1.08, glucose of 118, calcium of 8.9 [facility] Medical History (Updated 01/22/25 @ 14:[address] Rogers Atkins, ) Chronic pain Obesity (BMI 30.0-34.9) History of syncope Generalized abdominal pain Wears glasses Arthritis Neuropathy History of pain when walking History of echocardiogram Cardiology follow-up encounter History of atrial fibrillation Syncopal episodes Metastatic melanoma Duodenal mass Post-menopausal History of steroid therapy Anemia History of immunosuppression therapy Seizures Adrenal insufficiency 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 Bilateral pulmonary embolism Pulmonary emboli Left leg DVT Anticoagulated Former smoker Mild cognitive impairment COVID-19 Polyneuropathy Essential hypertension GERD (gastroesophageal reflux disease) Hyperlipidemia Home Medications ?Medication ?Instructions ?Recorded ?Last Taken ?Type metoprolol succinate 50 mg 50 mg PO DAILY heart rate # #0 08/15/20 10/06/24 Rx tablet,extended release 24 hr atorvastatin 40 mg tablet 40 mg PO DAILY cholesterol 0 09/24/20 10/06/24 History acetaminophen 500 mg tablet 1,000 mg (2 x 500 mg) PO Q 6H PRN 07/27/23 10/07/24 07:20 Rx PRN Pain Score 1-5 #0 tabs apixaban 5 mg tablet (Eliquis) 5 mg PO BID blood thinn er 30 days 07/27/23 10/06/24 Rx #60 tabs pantoprazole 40 mg tablet,delayed 40 mg PO DAILY #30 t abs 08/29/23 10/06/24 Rx release melatonin 3 mg tablet 3 mg PO HS PRN sleep 4 Unknown History ondansetron HCl 8 mg tablet 8 mg PO Q8H PRN nausea and vomiting 11/02/23 Unknown History prednisone 5 mg tablet 5 mg PO DAILY #100 tabs 08/09/1910/07/24 Rx tizanidine 4 mg capsule 4 mg PO Q8H PRN muscle spast icity 03/27/24 Unknown History albuterol sulfate 90 mcg/actuation 2 puff inhalation Q 4H dyspnea 01/22/25 01/22/25 History aerosol inhaler amlodipine 5 mg tablet 5 mg PO DAILY 01/22/25 Unkno wn History azithromycin 250 mg tablet 250 mg PO DAILY 01/22/25 Un known History cholecalciferol (vitamin D3) 1,250 1,250 mcg PO QWEEK 01/22/25 Unknown History mcg (50,000 unit) capsule lisinopril 40 mg tablet 40 mg PO DAILY 01/22/25 Unkn own History Allergy/AdvReac Type Severity Reaction Status Date / Time Sulfa (Sulfonamide Allergy Severe Swelling Verified 01/22/25 10:55 Antibiotics) amoxicillin AdvReac Severe Diarrhea Verified 01/22/25 10:55 sulfamethoxazole (From AdvReac Severe Anaphylaxis Verified 01/22/25 10:55 Bactrim) trimethoprim (From Bactrim) AdvReac Severe Swelling Verified 01/22/25 10:55 Family History Brother Alcoholism Asthma Myocardial infarction, Onset Age: 52 Seizures Skin cancer Sister CVA (cerebral vascular accident) Asthma Grandfather Asthma Father Myocardial infarction, Onset Age: 46 Had at age 46 & 62 Mother Myocardial infarction, Onset Age: 82 Surgical History (Updated 10/16/24 @ 00:02 by Christa Catalan) Hx of surgical procedure History of total left hip replacement History of amputation of finger History of right hip replacement History of cataract surgery History of eye surgery Social History household members: spouse Smoking Status: Former smoker Tobacco: How many years used: 30 how long ago did patient quit smokin years ago second hand exposure: No alcohol intake: current alcohol intake frequency: holidays/special occasions only Alcohol type: wine substance use type: does not use amy/baptism: None seatbelt use: always ROS Review of Systems ROS Unobtainable: Denies due to encephalopathy, due to endotracheal tube, due to mental condition, due to mental status or other Constitutional Constitutional: Reports anorexia, chills and fatigue Eyes Eyes: Denies blurry vision, change in eye color, change in vision, discharge from eye(s), double vision, erythema, eye pain, loss of vision or other ENT HEENT: Denies abnormal hearing, dysphagia, ear pain, epistaxis, headache(s), hearing loss, nasal congestion, nasal discharge, post nasal drip, sinus pressure, sore throat or other Cardiovascular Cardiovascular: Reports dyspnea on exertion and lightheadedness Respiratory/Chest Respiratory/Chest: Denies cough, dyspnea, excessive phlegm production, hemoptysis, productive cough, shortness of breath at rest, shortness of breath with exertion, wheezing or other Gastrointestinal Gastrointestinal: Denies abdominal pain, coffee ground emesis, constipation, diarrhea, dyspepsia, hematemesis, hematochezia, loose stools, melena, nausea, vomiting or other Genitourinary Genitourinary: Denies burning urination, difficulty urinating, dysuria, hematuria, nocturia, urinary frequency, urinary hesitancy, urinary incontinence, urinary urgency or other Neurologic Neurologic: Denies abnormal gait, abnormal speech, confusion, disequilibrium, dizziness, focal weakness, headache(s), numbness, paresthesias, seizure-like activity, seizures, syncope, tingling, tremor(s) or other Psychiatric Psychiatric: Denies anxiety, depression, homicidal ideation, suicidal ideation or other Endocrine Endocrinology: Denies change in body appearance, cold intolerance, excessive sweating, heat intolerance, polydipsia, polyuria or other Hematologic/Lymphatic Hematologic/Lymphatic: Denies anemia, easy bleeding, easy bruising, lymphadenopathy or other Allergic/Immunologic Allergic/Immunologic: Denies rhinitis, hives, eczemia, asthma or other Vital Signs Vital Signs Vital Signs: 05/29/25 10:54 01/22/25 11:19 01/22/25 12:57 Temperature 99 F 98.3 F Temperature Source Temporal Oral Pulse Rate 80 74 75 Respiratory Rate 14 17 16 Blood Pressure 113/51 L 129/56 H 127/48 H Blood Pressure Mean 71 80 74 Pulse Ox 100 92 99 Oxygen Delivery Method Room Air Room Air Room Air 01/22/25 13:57 01/22/25 15:00 01/22/25 15:13 Temperature 98.3 F 98.3 F Temperature Source Oral Pulse Rate 75 79 79 Respiratory Rate 16 12 12 Blood Pressure 132/59 H 104/92 H 104/92 H Blood Pressure Mean 83 96 96 Pulse Ox 94 93 93 Oxygen Delivery Method Room Air Room Air Physical Exam Const alert and oriented x3 HEENT normocephalic and head/scalp atraumatic Eyes PERRL and EOMs intact bilaterally Neck no lymphadenopathy and supple Resp normal respiratory effort and no retractions Cardio regular rate and regular rhythm GI normal to inspection, nondistended, normoactive bowel sounds Extremity normal to inspection Neuro oriented x3 Psych affect normal Results Lab / Micro Data 01/22/25 11:10 01/22/25 11:10 Labs: Laboratory Results - last 24 hr 01/22/25 11:10: WBC 5.9, RBC 3.53 L, Hgb 8.2 L, Hct 27.9 L, MCV 79.0 L, MCH 23.2 L, MCHC 29.4 L, RDW Std Deviation 42.0, RDW Coeff of Lynn 14.6, Plt Count 227, MPV 9.9, Immature Gran % (Auto) 0.500, Neut % (Auto) 73.3 H, Lymph % (Auto) 15.5 L, [place]irt % (Auto) 9.0, Eos % (Auto) 1.5, Baso % (Auto) 0.2, Absolute Neuts (auto) 4.3, Absolute Lymphs (auto) 0.91, Nucleated RBC % 0, Sodium 138, Potassium 3.6, Chloride 102, Carbon Dioxide 23.4, Anion Gap 12, BUN 19, Creatinine 1.08, Est GFR (MDRD) Non-Af 53 L, BUN/Creatinine Ratio 18.0, Glucose 118 H, Calcium 8.9, Total Bilirubin 0.27, AST 19, ALT 15, Alkaline Phosphatase 79, Total Protein 6.4, Albumin 3.8, Globulin 2.6, Albumin/Globulin Ratio 1.5 01/22/25 14:22: Urine Color Yellow, Urine Clarity Clear, Urine pH 6.5, Ur Specific [place] 1.010, Urine Protein 15 H, Urine Glucose (UA) Normal, Urine Ketones Negative, Urine Occult Blood 10 H, Urine Nitrite Negative, Urine Bilirubin Negative, Urine Urobilinogen Normal, Ur Leukocyte Esterase 100 H, Urine RBC 0-5 SEEN, Urine WBC 0-5 SEEN, Ur Squamous Epith Cells 0-5 SEEN, Urine Bacteria 1+, Urine Mucus 0 SEEN Micro: Microbiology 01/22/25 11:37 Mucosa - Nose SARS-CoV-2, Influenza & RSV (PCR) - Final Imaging Radiology Impression Chest X-Ray 01/22/25 14:40 IMPRESSION: No Acute Findings. 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 # Syncopal episode Differential: Orthostatic hypotension 2/2 medication and reduced p.o. intake versus arrhythmia - Likely in the setting of ongoing dehydration and antihypertensive therapy - Admit to PCU for telemetry monitoring - Echocardiogram -There was no head injury due to the syncopal - Continue metoprolol succinate - Close monitoring of blood pressure - Received 2 L of IV fluid in the ED - Close I/O monitoring - NT-proBNP, high-sensitivity troponin # Acute on chronic anemia - There is a decrease in her hemoglobin levels from 9 to 8 - Repeat hemoglobin tomorrow - Will hold her Eliquis for now and restart if hemoglobin is stable tomorrow - No visible bleeding at this time #Upper respiratory tract infection - Vitals are stable, has some chronic cough, normal lung examination - Complete azithromycin, has taken 2 doses as outpatient - Robitussin cough syrup - Regular diet # Prior history of DVT - Continue anticoagulation #Hypertension - Blood pressures in normal range at presentation - Continue home blood pressure medications provided no fluctuations noted during hospitalization # Adrenal insufficiency - Continue prednisone 5 mg for now - If has persistent orthostatic concerns we will have to consider adding fludrocortisone #Melanoma - Noted #DVT prophylaxis - Already anticoagulated #CODE STATUS - Full code
--- NOTE | 2025-01-22 15:33 | ECHOD_ITS ---
Reason For Study Reason For Study: SYNCOPE Procedure This was a 2D Doppler, Color Flow transthoracic echocardiogram. Exam performed portable in patient room. Left Ventricle Normal left ventricle. The estimated ejection fraction is 55???60 %. Right Ventricle Normal right ventricle. Normal systolic function. Atria Normal left atrium. Normal right atrium. Mitral Valve The mitral valve is structurally normal. No prolapse or stenosis seen. Tricuspid Valve Normal tricuspid valve. Aortic Valve Trisinus/trileaflet aortic valve. Pulmonic Valve The pulmonic valve is not well visualized. Great Vessels Normal aortic root. Pericardium/Pleural No pericardial effusion. MMode/2D Measurements & Calculations LVIDd: 3.7 cm IVSd: 1.4 cm LVOT diam: 2.0 cm LVIDs: 2.3 cm LVPWd: 1.8 cm LVOT area: 3.1 cm2 RVDd: 2.9 cm FS: 39.2 % Ao root diam: 3.6 cm LAV(MOD-bp): 54.2 ml LVAd ap4: 20.6 cm2 LAV(MOD-bp) Indexed: 28.7 ml/m2 LVLd ap4: 7.5 cm LAV(MOD-sp2): 47.0 ml EDV(MOD-sp4): 49.2 ml LAV(MOD-sp4): 60.0 ml EDV(sp4-el): 48.4 ml LVAs ap4: 9.4 cm2 LVLs ap4: 6.3 cm ESV(MOD-sp4): 12.2 ml ESV(sp4-el): 12.0 ml EF(MOD-sp4): 75.2 % EF(sp4-el): 75.1 % SV(MOD-sp4): 37.0 ml SV(sp4-el): 36.4 ml LA A4 area: 19.7 cm2 SI(MOD-sp4): 19.6 ml/m2 LA dimension(2D): 3.6 cm RA A4 area: 10.9 cm2 Time Measurements MV dec time: 0.35 sec Doppler Measurements & Calculations MV E max everton: 85.5 cm/sec Lat Peak E' [place]: 5.9 cm/sec Med Peak E' [place]: 7.3 cm/sec MV A max everton: 121.3 cm/sec E/E' lat: 14.4 E/E' med: 11.7 MV E/A: 0.70 MV V2 max: 126.8 cm/sec Ao V2 max: 153.7 cm/sec MV max P.4 mmHg MV dec slope: 250.8 cm/sec2 Ao max P.5 mmHg MV V2 mean: 80.2 cm/sec Ao V2 mean: 114.4 cm/sec MV mean P.8 mmHg Ao mean P.8 mmHg MV V2 VTI: 36.2 cm Ao V2 VTI: 34.8 cm AV (velocity ratio): 0.89 MVA(VTI): 2.6 cm2 DANIS(I,D): 2.8 cm2 DANIS(V,D): 2.9 cm2 LV V1 max: 141.8 cm/sec SV(LVOT): 95.8 ml PA V2 max: 88.2 cm/sec LV V1 max P.1 mmHg PA V2 mean: 59.4 cm/sec LV V1 mean P.0 mmHg LV V1 mean: 107.6 cm/sec LV V1 VTI: 30.9 cm ECHO/Echo Complete Interpretation Summary The estimated ejection fraction is 55???60 %. Normal LV systolic function No significant valvular abnormality In comparison to previous echo no significant change noted. Ordering Physician: Dann London Referring Physician: Gary Merrill Performed By: Aileen Rodgers RCS
[2025-01-22 17:02] LABS: Bedside Glucose 111 mg/dL (74-106)
[2025-01-22 18:34] LABS: Troponin T High Sensitivity 14 ng/L (<=14)
[2025-01-22 18:59] LABS: Pro- Brain NATRIURETIC PEPTIDE 74 pg/mL (<=1800)
[2025-01-22 20:34] LABS: Troponin T High Sens 2 HR 11 ng/L (<=14)
[2025-01-22 21:58] LABS: Troponin T High Sens 4 HR 12 ng/L (<=14)
[2025-01-22] MEDS: APIXABAN 5 MG TABLET PO (22:50)
[2025-01-23 00:20] LABS: Bedside Glucose 120 mg/dL (74-106)
[2025-01-23 03:45] VITALS: BP 145/62; PULSE 85; RESP 18; TEMP 37.1; O2SAT 93
[2025-01-23 05:10] LABS: Absolute Neutrophil Count 1.7 X10^3/uL (2.0-7.7); Basophil# 0.01 X10^3/uL; Basophil% 0.3 % (0-1); Eosinophil# 0.06 X10^3/uL; Eosinophils% 1.9 % (0-5); Hemoglobin 7.6 g/dL (12.0-15.0); Mean Corp Hgb Conc 29.2 g/dL (32-36); Mean Corpuscular Hgb 23.6 pg (27.0-32.0); Mean Corpuscular Volume 80.7 fL (81-99); Mean Platelet Vol. 9.4 fl (6.2-12.0); Monocyte% 12.4 % (0-10); NRBC Flagged by Analyzer 0 % (0-5); Neutrophil # 1.74 X10^3/uL (2.7-7.7); Neutrophil % 53.8 % (47-70); Platelet Count 200 K/mm3 (150-450); RBC Distribution Width CV 14.6 % (11.6-14.6); RBC Distribution Width SD 43.2 fl (35.1-43.9); Red Blood Count 3.22 M/mm3 (4.2-5.4); White Blood Count 3.2 K/mm3 (4.4-11.0)
[2025-01-23 05:33] LABS: International Normalized Ratio 1.4; Prothrombin Time (Protime)PT. 17.7 SECONDS (11.7-14.9)
[2025-01-23 05:47] LABS: ALB/GLOB Ratio 1.5 RATIO (0.9-2.4); AST(SGOT) 15 U/L (<=31); Alanine Aminotransfer ALT/SGPT 12 U/L (<=34); Albumin, Serum 3.4 g/dL (3.4-4.8); Alkaline Phosphatase 69 U/L (35-104); Anion Gap 8 (5-15); BUN 16 mg/dL (4-19); BUN/Creat Ratio 17.5 RATIO (10-20); Calcium,Total 8.3 mg/dL (7.6-11.0); Carbon Dioxide 22.7 mmol/L (21.0-32.0); Chloride 107 mmol/L (98-108); Creatinine, Serum 0.92 mg/dL (0.70-1.20); EST Glomerular Filtration Rate 64 (>60); Estimated Creatinine Clearance 54.31 ml/min (50-250); Globulin 2.2 g/dL (2.2-4.2); Glucose 91 mg/dL (70-99); Phosphorus 2.7 mg/dL (2.7-4.5); Potassium 3.9 mmol/L (3.3-5.1); Protein, Total 5.6 g/dL (5.9-8.4); Sodium Level 138 mmol/L (133-145); Thyroid Stim Hormone (TSH) 0.686 uIU/mL (0.300-4.200)
[2025-01-23 06:23] LABS: Bedside Glucose 87 mg/dL (74-106)
[2025-01-23 07:52] VITALS: O2SAT 94
--- NOTE | 2025-01-23 08:42 | NURSING ---
getting ECHO done at this time
[2025-01-23 09:45] VITALS: BP 159/62; PULSE 79; RESP 18; TEMP 36.9; O2SAT 93
[2025-01-23] MEDS: Pantoprazole Sodium 40 MG Tablet PO (09:54)
[2025-01-23] MEDS: Acetaminophen 500 MG Tablet 1000 MG PO ×2 (09:55→20:59)
[2025-01-23] MEDS: Lisinopril 40 MG Tablet PO (09:55)
[2025-01-23] MEDS: Atorvastatin Calcium 40 MG Tablet PO (09:55)
[2025-01-23] MEDS: amLODIPine 5 MG Tablet PO (09:55)
[2025-01-23] MEDS: Azithromycin 250 MG Tablet PO (09:55)
[2025-01-23 09:56] VITALS: PULSE 79
[2025-01-23] MEDS: APIXABAN 5 MG TABLET PO ×2 (09:56→20:59)
[2025-01-23] MEDS: predniSONE 5 MG Tablet PO (09:56)
[2025-01-23] MEDS: Metoprolol(XL)Succ 50 MG Tablet PO (09:56)
--- NOTE | 2025-01-23 11:32 | CT_ITS ---
EXAM: CT Head Without and With Intravenous Contrast CLINICAL INDICATION: SYNCOPE, HISTORY OF MELANOMA. EVALUATE FOR BRAIN M TECHNIQUE: Axial computed tomography images of the head/brain without and with intravenous contrast. This CT exam was performed using one or more of the following dose reduction techniques: automated exposure control, adjustment of the mA and/or kV according to patient size, and/or use of iterative reconstruction technique. COMPARISON: CT Head dated 11/02/2023 FINDINGS: BRAIN AND EXTRA-AXIAL SPACES: The cerebral and cerebellar sulci are prominent consistent with brain atrophy. Areas of decreased attenuation in the deep cerebral white matter are consistent with small vessel ischemic/degenerative changes. No acute intracranial hemorrhage, midline shift or mass effect. If symptoms persist, further evaluation with MRI is recommended. BONES/JOINTS: Unremarkable. No acute fracture. SOFT TISSUES: Unremarkable. SINUSES: Unremarkable as visualized. No acute sinusitis. MASTOID AIR CELLS: Unremarkable as visualized. No mastoid effusion. CT/Brain/Head W/WO Contrast IMPRESSION: 1. Generalized brain atrophy. 2. Small vessel ischemic/degenerative changes. 3. No acute intracranial hemorrhage, midline shift or mass effect. No arteria l enhancing intracranial lesions. If symptoms persist, further evaluation with MRI is recommended. 4. No significant change from the prior exam. Reading Location: [facility]
[2025-01-23 13:21] LABS: Bedside Glucose 101 mg/dL (74-106)
--- NOTE | 2025-01-23 13:59 | NURSING ---
This RN called Micro to see if Stool had been tested for CDiff yet, Valorie from lab states it is Cdiff Negative.
[2025-01-23] MEDS: Loratadine 10 MG Tablet PO (14:04)
--- NOTE | 2025-01-23 14:58 | CASEMGMT ---
Met with patient to complete ARCHIBALD form. ARCHIBALD form and its content were verbally explained and patient's questions were answered to the best of my ability.? Patient voiced understanding and signed ARCHIBALD form.? Patient provided a copy of signed ARCHIBALD form and original placed in patient's chart.? Patient had no further questions. Kayli Pearl, Discharge Planning Asst
--- NOTE | 2025-01-23 15:52 | PN_ITS ---
Subjective Subjective Patient seen and examined. She was admitted with complaint of syncope. She says she felt lightheaded and subsequently passed out. She has had such recurrent syncope in the past. She admitted to decreased oral intake not been feeling tired. He also complained of nasal congestion. She has a history of melanoma. Review of systems is otherwise negative. Objective Data Objective Data Vital Signs: Vital Signs Temp Pulse Resp BP Pulse Ox O2 Del Method 98.5 F 79 18 159/62 H 93 Room Air 01/23/25 09:45 01/23/25 09:56 01/23/25 09:45 01/23/25 09:45 01/23/25 09:45 01/23/25 10:00 Oxygen Delivery Method Room Air Weight: 174 lb 2.643 oz Body Mass Index (BMI) 28.0 Intake & Output: Intake and Output for Last 24 Hours 01/21/25 01/22/25 01/23/25 23:59 23:59 23:59 Intake Total 2240 / 2240 340 / 340 Balance 2240 / 2240 340 / 340 Lab / Micro Data 01/23/25 04:50 01/23/25 04:50 Labs: Laboratory Results - last 24 hr 01/22/25 11:10: Troponin T High Sens 14, NT pro BNP II 74 01/22/25 16:40: POC Glucose 111 H 01/22/25 19:30: Troponin T Hi Sens 2 Hr 11 01/22/25 21:15: Troponin T Hi Sens 4Hr 12 01/22/25 22:39: POC Glucose 120 H 01/23/25 04:50: WBC 3.2 L, RBC 3.22 L, Hgb 7.6 L, Hct 26.0 L, MCV 80.7 L, MCH 23.6 L, MCHC 29.2 L, RDW Std Deviation 43.2, RDW Coeff of Lynn 14.6, Plt Count 200, MPV 9.4, Immature Gran % (Auto) 0.600, Neut % (Auto) 53.8, Lymph % (Auto) 31.0, [place] % (Auto) 12.4 H, Eos % (Auto) 1.9, Baso % (Auto) 0.3, Absolute Neuts (auto) 1.7 L, Absolute Lymphs (auto) 1.00, Nucleated RBC % 0, PT 17.7 H, INR 1.4, Sodium 138, Potassium 3.9, Chloride 107, Carbon Dioxide 22.7, Anion Gap 8, BUN 16, Creatinine 0.92, Estim Creat Clear Calc 54.31, Est GFR (MDRD) Non-Af 64, BUN/Creatinine Ratio 17.5, Glucose 91, Calcium 8.3, Phosphorus 2.7, Magnesium 2.0, Total Bilirubin 0.20, Direct Bilirubin 0.10, AST 15, ALT 12, Alkaline Phosphatase 69, Total Protein 5.6 L, Albumin 3.4, Globulin 2.2, Albumin/Globulin Ratio 1.5, TSH 0.686 01/23/25 06:03: POC Glucose 87 01/23/25 12:28: POC Glucose 101 Micro: Microbiology 01/22/25 10:37 Stool Clostridioides difficile (PCR) - Final 01/22/25 11:37 Mucosa - Nose SARS-CoV-2, Influenza & RSV (PCR) - Final Radiography Diagnostic Testing: Radiology Impression Brain CT 01/23/25 11:32 IMPRESSION: 1. Generalized brain atrophy. 2. Small vessel ischemic/degenerative changes. 3. No acute intracranial hemorrhage, midline shift or mass effect. No arterial enhancing intracranial lesions. If symptoms persist, further evaluation with MRI is recommended. 4. No significant change from the prior exam. Reading Location: [facility] Physical Exam Const alert, oriented x3 and no apparent distress Constitutional Narrative: sounds congested General Appearance: cooperative HEENT normocephalic, moist oral mucous membranes and oropharynx normal Eyes EOMs intact bilaterally Neck no lymphadenopathy and supple Lymph Lymphatic: no lymphedema noted Resp Resp Narrative: mildly diminished breath sounds bibasally, no wheezes or crackles. On room air. Cardio regular rate, regular rhythm, S1 normal heart sound, S2 normal heart sound and no murmurs GI normal to inspection, nondistended, normoactive bowel sounds, soft to palpation, non-tender and non-distended Extremity normal capillary refill, no clubbing, cyanosis or edema and no calf tenderness General Extremity: no tenderness to palpation of joints or extremities Skin General Skin Exam: no breakdown Neuro CN's II-XII intact bilaterally, no focal motor deficits and no sensory deficits noted Motor Exam: strength 5/5 throughout and general weakness Psych thought process normal and cooperative Appearance: appropriate Assessment & Plan Assessment/Plan (1) Syncope: (2) Weakness: (3) Viral URI: PLAN: Plan #SYncope * Thought to be due to orthostatic hypotension in the setting of reduced oral intake and medication induced * Patient felt much better today. She denied any lightheadedness or dizziness. She does have a history of melanoma. I did order CT of the brain with and without contrast to evaluate for any evidence of metastasis. * Fall precautions. Hydration with IV fluids. 2D echo ordered. #Chronic anemia: * Hemoglobin was 8 on admission. * CT showed no evidence of bleeding and she does not have any overt bleeding. Will monitor for now. * Hb today is 7.6. WIll check iron profile and stool for occult blood. #Upper respiratory tract infection: * Currently on azithromycin. Patient does sound congested. * Started on Claritin and Flonase to help with that. * COVID, flu and RSV were negative. History of DVT: On Eliquis #History of melanoma: * Says she has PET scans every 3 months to evaluate for metastasis. * She has not recently had a CT brain. * I did order a CT brain which shows no evidence of any metastasis. #History of adrenal insufficiency: On prednisone. DVT prophylaxis: Already anticoagulated on Eliquis Charges/Coding Visit Charges Inpatient E&M: 15313 Subs Hosp L2
[2025-01-23 17:02] VITALS: BP 129/50; PULSE 68; RESP 19; TEMP 36.7; O2SAT 99
--- NOTE | 2025-01-23 17:16 | NURSING ---
Pt refusing to have her blood sugar checked at this time. Again? What for? Education given regarding her questions but pt continued to refuse at this time.
[2025-01-23 18:39] LABS: Ferritin 29 ng/mL (22-378); Iron 19 ug/dL (50-170); Iron Binding Capacity,Total 286 ug/dL (250-450); Iron Binding Capacity,Unsat 267 ug/dL (228-428)
[2025-01-23 20:43] VITALS: BP 138/57; PULSE 78; RESP 16; TEMP 36.6; O2SAT 95
[2025-01-24] VITALS (13 sets, daily range): BP systolic 142–179; BP diastolic 52–73; PULSE 60–84; RESP 16–18; TEMP 36.4–36.7; O2SAT 96–100
[2025-01-24 05:14] LABS: Absolute Lymphocyte Count 0.86 X10^3/uL (0.83-4.51); Absolute Neutrophil Count 1.7 X10^3/uL (2.0-7.7); Basophil# 0.01 X10^3/uL; Basophil% 0.3 % (0-1); Eosinophil# 0.05 X10^3/uL; Eosinophils% 1.7 % (0-5); Hematocrit 25.1 % (37-47); Hemoglobin 7.2 g/dL (12.0-15.0); Lymphocyte # 0.86 X10^3/ul (0.83-4.51); Mean Corp Hgb Conc 28.7 g/dL (32-36); Mean Corpuscular Hgb 23.1 pg (27.0-32.0); Mean Corpuscular Volume 80.4 fL (81-99); Monocyte# 0.34 X10^3/uL; Monocyte% 11.4 % (0-10); NRBC Flagged by Analyzer 0 % (0-5); Neutrophil # 1.69 X10^3/uL (2.7-7.7); Neutrophil % 56.9 % (47-70); Platelet Count 197 K/mm3 (150-450); RBC Distribution Width CV 14.5 % (11.6-14.6); RBC Distribution Width SD 41.7 fl (35.1-43.9); Red Blood Count 3.12 M/mm3 (4.2-5.4)
[2025-01-24 05:53] LABS: Anion Gap 10 (5-15); BUN 14 mg/dL (4-19); BUN/Creat Ratio 17.8 RATIO (10-20); Calcium,Total 8.8 mg/dL (7.6-11.0); Carbon Dioxide 22.9 mmol/L (21.0-32.0); Chloride 106 mmol/L (98-108); EST Glomerular Filtration Rate 76 (>60); Estimated Creatinine Clearance 62.46 ml/min (50-250); Glucose 92 mg/dL (70-99); Potassium 3.7 mmol/L (3.3-5.1); Sodium Level 139 mmol/L (133-145)
[2025-01-24] MEDS: Fluticasone 0.05% 1 SPRAY NASAL.SRY NASAL ×2 (09:30→21:55)
[2025-01-24] MEDS: amLODIPine 5 MG Tablet PO (09:30)
[2025-01-24] MEDS: Pantoprazole Sodium 40 MG Tablet PO (09:30)
[2025-01-24] MEDS: predniSONE 5 MG Tablet PO (09:30)
[2025-01-24] MEDS: Metoprolol(XL)Succ 50 MG Tablet PO (09:31)
--- NOTE | 2025-01-24 11:58 | PN.HOSP_ITS ---
Reason for Visit Reason for Visit: Diagnoses Acute upper respiratory infection, unspecified (01/22/25) Weakness (01/22/25) Syncope and collapse (01/22/25) Objective Data Objective Data Vital Signs: Vital Signs Temp Pulse Resp BP Pulse Ox O2 Del Method 97.8 F 73 18 166/73 H 100 Room Air 01/24/25 07:50 01/24/25 09:31 01/24/25 07:50 01/24/25 07:50 01/24/25 07:50 01/24/25 07:50 Oxygen Delivery Method Room Air Weight: 174 lb 2.643 oz Body Mass Index (BMI) 28.0 Intake & Output: Intake and Output for Last 24 Hours 01/22/25 01/23/25 01/24/25 23:59 23:59 23:59 Intake Total 2240 / 2240 690 / 690 Balance 2240 / 2240 690 / 690 Lab / Micro Data 01/24/25 04:53 01/24/25 04:53 Labs: Laboratory Results - last 24 hr 01/23/25 04:50: Iron 19 L, TIBC 286, Iron Saturation 7.0 L, Unsaturated IBC 267, Ferritin 29 01/23/25 12:28: POC Glucose 101 01/24/25 04:53: WBC 3.0 L, RBC 3.12 L, Hgb 7.2 L, Hct 25.1 L, MCV 80.4 L, MCH 23.1 L, MCHC 28.7 L, RDW Std Deviation 41.7, RDW Coeff of Lynn 14.5, Plt Count 197, MPV 10.0, Immature Gran % (Auto) 0.700, Neut % (Auto) 56.9, Lymph % (Auto) 29.0, [place] % (Auto) 11.4 H, Eos % (Auto) 1.7, Baso % (Auto) 0.3, Absolute Neuts (auto) 1.7 L, Absolute Lymphs (auto) 0.86, Nucleated RBC % 0, Sodium 139, Potassium 3.7, Chloride 106, Carbon Dioxide 22.9, Anion Gap 10, BUN 14, Creatinine 0.80, Estim Creat Clear Calc 62.46, Est GFR (MDRD) Non-Af 76, BUN/Creatinine Ratio 17.8, Glucose 92, Calcium 8.8 Micro: Microbiology 01/22/25 10:37 Stool Stool Occult Blood (MARQUES) - Final Occult Blood Positive 01/22/25 10:37 Stool Enteric Bacteriology - Final 01/22/25 10:37 Stool Clostridioides difficile (PCR) - Final 01/22/25 11:37 Mucosa - Nose SARS-CoV-2, Influenza & RSV (PCR) - Final Radiography Diagnostic Testing: Radiology Impression Echocardiogram 01/22/25 15:33 Interpretation Summary The estimated ejection fraction is 55???60 %. Normal LV systolic function No significant valvular abnormality In comparison to previous echo no significant change noted. Ordering Physician: Dann London Referring Physician: Gary Merrill Performed By: Aileen Rodgers RCS Brain CT 01/23/25 11:32 IMPRESSION: 1. Generalized brain atrophy. 2. Small vessel ischemic/degenerative changes. 3. No acute intracranial hemorrhage, midline shift or mass effect. No arterial enhancing intracranial lesions. If symptoms persist, further evaluation with MRI is recommended. 4. No significant change from the prior exam. Reading Location: [facility] Physical Exam Narrative Seen and examined. Patient has a history of melanoma. CT brain negative for any evidence of metastasis. Hemoglobin has been chronically low and patient gets IV iron infusion 3 times a week as an outpatient. Currently patient denies any chest pain or shortness of breath but hemoglobin is low therefore PRBC ordered. Stool for occult blood positive but patient denies any hematemesis melena/hematochezia or blood in his stool. She does not want colonoscopy. Physical exam General: Alert, Oriented x3, Cooperative HEENT: Atraumatic, PERRLA, EOMI, Normocephalic. Oral: No Gingival or Mucosal Lesions/ Ulcerations Neck: Supple, No JVD, Negative Carotid Bruits Chest wall/Lungs: Air entry diminished in bilateral lung bases. No crepitation/rhonchi Cardiovascular: Regular rate and rhythm, Normal S1,S2, No M/G/R Abdomen: Bowel Sounds Present, Soft, Non Tender, Non-Distended : No dysuria. No renal angle tenderness. No suprapubic tenderness. Extremities: No edema, Capillary Refill Less than 3 Seconds Skin: No rashes, No breakdown Musculoskeletal: No Tenderness to Palpation of Joints or Extremities Neurological: Cranial nerves II-XII grossly intact, DTR 2+/4. No acute focal neurological deficit. Psych/Mental Status: Normal Affect, Appropriate. Assessment & Plan Assessment/Plan (1) Syncope: (2) Weakness: (3) Viral URI: PLAN: Plan 79-year-old female being admitted for syncope. She has very severe anemia and she has chronic iron-deficiency anemia. #Syncope * Thought to be due to orthostatic hypotension in the setting of reduced oral intake and medication induced * Patient felt much better today. She denied any lightheadedness or dizziness. She does have a history of melanoma. I did order CT of the brain with and without contrast to evaluate for any evidence of metastasis. * Fall precautions. Hydration with IV fluids. 2D echo ordered. 01/24: Does not have dizziness or lightheadedness. #Chronic anemia: * Hemoglobin was 8 on admission. * CT showed no evidence of bleeding and she does not have any overt bleeding. Will monitor for now. * Hb today is 7.6. 01/24: Iron profile shows low iron, low ferritin, low iron saturation but her TIBC, UIBC are not high therefore looks like mixed ARACELI and inflammatory anemia. RDW also normal 14.5%. Plan for EGD tomorrow. Patient also has mild esophageal dysphagia probably will need dilatations. Discussed with Dr. Antonio #Upper respiratory tract infection: * Currently on azithromycin. Patient does sound congested. * Started on Claritin and Flonase to help with that. * COVID, flu and RSV were negative. History of DVT: On Eliquis #History of melanoma: * Says she has PET scans every 3 months to evaluate for metastasis. * She has not recently had a CT brain. * I did order a CT brain which shows no evidence of any metastasis. #History of adrenal insufficiency: On prednisone. DVT prophylaxis: Already anticoagulated on Eliquis Charges/Coding Visit Charges Inpatient E&M: 50538 Subs Hosp L2
[2025-01-24] MEDS: Acetaminophen 500 MG Tablet 1000 MG PO ×2 (12:59→21:54)
[2025-01-24 20:32] LABS: Hematocrit 27.9 % (37-47); Hemoglobin 8.5 g/dL (12.0-15.0)
[2025-01-24] MEDS: 0.9% Saline Lock 10 ML Syringe IV (21:55)
[2025-01-25 03:29] VITALS: BP 154/72; PULSE 74; RESP 17; TEMP 36.1; O2SAT 99
[2025-01-25 05:22] LABS: Absolute Lymphocyte Count 1.15 X10^3/uL (0.83-4.51); Absolute Neutrophil Count 2.5 X10^3/uL (2.0-7.7); Basophil# 0.01 X10^3/uL; Basophil% 0.2 % (0-1); Eosinophil# 0.05 X10^3/uL; Eosinophils% 1.2 % (0-5); Hematocrit 28.6 % (37-47); Hemoglobin 8.6 g/dL (12.0-15.0); Lymphocyte # 1.15 X10^3/ul (0.83-4.51); Lymphocyte % 28.6 % (19-41); Mean Corp Hgb Conc 30.1 g/dL (32-36); Mean Corpuscular Hgb 23.9 pg (27.0-32.0); Mean Corpuscular Volume 79.4 fL (81-99); Mean Platelet Vol. 9.6 fl (6.2-12.0); Monocyte# 0.25 X10^3/uL; Monocyte% 6.2 % (0-10); NRBC Flagged by Analyzer 0 % (0-5); Neutrophil # 2.53 X10^3/uL (2.7-7.7); Neutrophil % 63.1 % (47-70); Platelet Count 208 K/mm3 (150-450); RBC Distribution Width CV 14.7 % (11.6-14.6); RBC Distribution Width SD 42.4 fl (35.1-43.9)
[2025-01-25 05:52] LABS: Anion Gap 11 (5-15); BUN 12 mg/dL (4-19); BUN/Creat Ratio 17.3 RATIO (10-20); Calcium,Total 8.8 mg/dL (7.6-11.0); Carbon Dioxide 24.5 mmol/L (21.0-32.0); Chloride 106 mmol/L (98-108); EST Glomerular Filtration Rate 89 (>60); Estimated Creatinine Clearance 62.46 ml/min (50-250); Glucose 92 mg/dL (70-99); Potassium 3.6 mmol/L (3.3-5.1); Sodium Level 141 mmol/L (133-145)
[2025-01-25 07:00] VITALS: PULSE 78
[2025-01-25 07:50] VITALS: O2SAT 97
[2025-01-25 07:55] VITALS: BP 182/77; PULSE 81; RESP 18; TEMP 36.1; O2SAT 99
[2025-01-25] MEDS: Acetaminophen 500 MG Tablet 1000 MG PO (07:57)
[2025-01-25] MEDS: Fluticasone 0.05% 1 SPRAY NASAL.SRY NASAL (07:59)
[2025-01-25] MEDS: Lisinopril 40 MG Tablet PO (07:59)
[2025-01-25] MEDS: Atorvastatin Calcium 40 MG Tablet PO (07:59)
[2025-01-25] MEDS: amLODIPine 5 MG Tablet PO (08:05)
[2025-01-25] MEDS: predniSONE 5 MG Tablet PO (08:05)
[2025-01-25] MEDS: Pantoprazole Sodium 40 MG Tablet PO (08:05)
[2025-01-25 08:06] VITALS: PULSE 81
[2025-01-25] MEDS: Metoprolol(XL)Succ 50 MG Tablet PO (08:06)
--- NOTE | 2025-01-25 08:55 | DCINST_ITS ---
Discharge Instructions Diet Discharge Diet: Light diet - advance as tolerated DC O2, CPAP, BIPAP needs Home O2 Discharge instructions: No Dressing / Incision Discharge Activity: Return to Normal Activity Weight Bearing Status: Weight bearing as tolerated Dressing / Incision Call your doctor if you observe: Fever of 101 or Higher, Coldness, Increased Yolanda n, Numbness or Tingling, Change in Color, Inability to urinate, Inability to have a bowel movement, Shortness of breath, Dizziness, Fainting spells, Swelling in the ankles, Chest pain, Prolonged hiccupping, Increased palpitations (irregular heartbeat) and Calf discomfort Follow Up Care When: IN 2 WEEKS Test Results: Test results from this visit will be discussed in further detail at your follow- up appointment, if applicable. Discharge Plan Admission Admit Date/Time: 01/24/25 13:18 Primary Reason for Your Visit: Syncope due to severe anemia, gi bleed Attending Provider: Naseem Rios Primary Care Provider: Gary Merrill Consulting Providers: Dann London; Maggie Eldridge Discharge Orders/Prescriptions Prescriptions: Continued atorvastatin 40 mg tablet 40 mg PO DAILY melatonin 3 mg tablet 3 mg PO HS PRN (Reason: sleep) tizanidine 4 mg capsule 4 mg PO Q8H PRN (Reason: muscle spasticity) prednisone 5 mg tablet 5 mg PO DAILY Qty: 100 3RF Patient Comments: TAKING 10 MG DAILY SINCE 01/19/25 Rx Instructions: double dose for fever/acute illness metoprolol succinate 50 MG tablet 50 mg PO DAILY Qty: 0 0RF Rx Instructions: Hold if heart rate less than 60/min acetaminophen 500 mg Tablet 1,000 mg PO Q6H PRN PRN (Reason: Pain Score 1-5) Qty: 0 0RF pantoprazole 40 mg Tablet,Delayed Release (Dr/Ec) 40 mg PO DAILY Qty: 30 0RF ondansetron HCl 8 mg tablet 8 mg PO Q8H PRN (Reason: nausea and vomiting) Patient Comments: take 1 tablet by mouth every 8 hours if needed for nausea and vomiting azithromycin 250 mg tablet 250 mg PO DAILY lisinopril 40 mg tablet 40 mg PO DAILY amlodipine 5 mg tablet 5 mg PO DAILY cholecalciferol (vitamin D3) 1,250 mcg (50,000 unit) capsule 1,250 mcg PO QWEEK Patient Comments: AHMET @ 1000 albuterol sulfate 90 mcg/actuation HFA aerosol inhaler 2 puff INHALATION Q4H Held Eliquis 5 mg Tablet 5 mg PO BID 30 Days Qty: 60 0RF Hold Instructions: Hold for 5 more days until she sees GI for EGD Patient Comments: HOLD 2 DAYS PRIOR TO PROCEDURE PER Referrals / Follow Up: Gary Merrill MD [Primary Care Provider] - Friend,DO Jason [Med Staff - Active Staff] - In 1 Week (For EGD) Disposition Disposition (needs filled in before D/C Order can be placed): Home, Self Care
--- NOTE | 2025-01-25 09:37 | PCM.DC.SUM ---
Providers Date of Admission: 01/24/25 Date of Discharge: 01/25/25 Primary Care Physician: Dr. Gary Merrill MD Reason For Visit: SYNCOPE Diagnosis Discharge Diagnosis (1) Syncope: Status: Acute Code(s): R55 - Syncope and collapse (2) Weakness: Status: Acute Code(s): R53.1 - Weakness (3) Viral URI: Status: Acute Code(s): J06.9 - Acute upper respiratory infection, unspecified Plan 79-year-old female being admitted for syncope. She has very severe anemia and she has chronic iron-deficiency anemia. #Syncope Thought to be due to orthostatic hypotension in the setting of reduced oral intake and medication induced Patient felt much better today. She denied any lightheadedness or dizziness. She does have a history of melanoma. I did order CT of the brain with and without contrast to evaluate for any evidence of metastasis. Fall precautions. Hydration with IV fluids. 2D echo ordered. 01/24: Does not have dizziness or lightheadedness. #Chronic anemia: Hemoglobin was [address] showed no evidence of bleeding and she does not have any overt bleeding. Will monitor for now. Hb today is 7.6. 01/24: Iron profile shows low iron, low ferritin, low iron saturation but her TIBC, UIBC are not high therefore looks like mixed ARACELI and inflammatory anemia. RDW also normal 14.5%. Plan for EGD tomorrow. Patient also has mild esophageal dysphagia probably will need dilatations. Discussed with Dr. Antonio 01/25: H&H 8.6/28.6%. Platelet count 208K. Discussed with Dr. Antonio. He said he would not be able to do EGD today because of 1 liver and is disabled for emergency surgery. Plan for outpatient EGD early next week. Continue holding Eliquis. #Upper respiratory tract infection: Currently on azithromycin. Patient does sound congested. Started on Claritin and Flonase to help with that. COVID, flu and RSV were negative. 01/25: No hypoxia. Patient is breathing good. URI resolved History of DVT: On Eliquis #History of melanoma: Says she has PET scans every 3 months to evaluate for metastasis. She has not recently had a CT brain. I did order a CT brain which shows no evidence of any metastasis. #History of adrenal insufficiency: On prednisone. 01/25: Patient states she is on prednisone 5 mg baseline but when she gets stressed she gets 2 tablet of prednisone, 10 mg. She has mild headache therefore hydrocortisone 50 mg 1 dose ordered as she states steroid works good for her headache. She follows neurologist Dr. Joseph therefore advised to follow-up or call the office next week DVT prophylaxis: Already anticoagulated on Eliquis As mentioned above Discharge medication reconciliation done. Discharge follow-up instructions completed. Discharge process discussed with the patient and all questions were answered to patient's satisfaction. Follow with PCP in 1 to 2 weeks Total time spent, exact 35 minutes on discharge meds reconciliation, examination, coordination of care with nurses and ancillary staff, review of imaging and blood test and discussion with the patient on follow-up instructions. Medications at Discharge Home Medications metoprolol succinate 50 mg tablet,extended release 24 hr 50 mg PO DAILY heart rate ##0 08/15/20 atorvastatin 40 mg tablet 40 mg PO DAILY cholesterol 09/24/20 acetaminophen 500 mg tablet 1,000 mg (2 x 500 mg) PO Q6H PRN PRN Pain Score 1-5 #0 tabs 07/27/23 apixaban 5 mg tablet (Eliquis) 5 mg PO BID blood thinner 30 days #60 tabs 07/27/23 Held on 01/25/25. Instructions: Hold for 5 more days until she sees GI for EGD pantoprazole 40 mg tablet,delayed release 40 mg PO DAILY #30 tabs 08/29/23 melatonin 3 mg tablet 3 mg PO HS PRN sleep 10/18/23 ondansetron HCl 8 mg tablet 8 mg PO Q8H PRN nausea and vomiting 11/02/23 prednisone 5 mg tablet 5 mg PO DAILY #100 tabs 03/27/24 tizanidine 4 mg capsule 4 mg PO Q8H PRN muscle spasticity 03/27/24 albuterol sulfate 90 mcg/actuation aerosol inhaler 2 puff inhalation Q4H dyspnea 01/22/25 amlodipine 5 mg tablet 5 mg PO DAILY 01/22/25 azithromycin 250 mg tablet 250 mg PO DAILY 01/22/25 cholecalciferol (vitamin D3) 1,250 mcg (50,000 unit) capsule 1,250 mcg PO QWEEK 01/22/25 lisinopril 40 mg tablet 40 mg PO DAILY 01/22/25 Physical Exam Narrative Seen and examined. Patient had 1 unit of PRBC yesterday. Patient has a history of melanoma. CT brain negative for any evidence of metastasis. Hemoglobin has been chronically low and patient gets IV iron infusion 3 times a week as an outpatient. Currently patient denies any chest pain or shortness of breath but hemoglobin is low therefore PRBC ordered. Stool for occult blood positive but patient denies any hematemesis melena/hematochezia or blood in his stool. She does not want colonoscopy. Physical exam General: Alert, Oriented x3, Cooperative HEENT: Atraumatic, PERRLA, EOMI, Normocephalic. Oral: No Gingival or Mucosal Lesions/ Ulcerations Neck: Supple, No JVD, Negative Carotid Bruits Chest wall/Lungs: Air entry diminished in bilateral lung bases. No crepitation/rhonchi Cardiovascular: Regular rate and rhythm, Normal S1,S2, No M/G/R Abdomen: Bowel Sounds Present, Soft, Non Tender, Non-Distended : No dysuria. No renal angle tenderness. No suprapubic tenderness. Extremities: No edema, Capillary Refill Less than 3 Seconds Skin: No rashes, No breakdown Musculoskeletal: No Tenderness to Palpation of Joints or Extremities Neurological: Cranial nerves II-XII grossly intact, DTR 2+/4. No acute focal neurological deficit. Psych/Mental Status: Normal Affect, Appropriate. Weight / BMI Weight Weight: 174 lb 2.643 oz Body Mass Index (BMI) 28.0 ABG / Lab / Microbiology Data 01/25/25 04:47 01/25/25 04:47 Laboratory: Laboratory Results - last 24 hr 01/24/25 12:45: Blood Type O POSITIVE, Antibody Screen NEGATIVE, Crossmatch See Detail 01/24/25 20:12: Hgb 8.5 L, Hct 27.9 L 01/25/25 04:47: WBC 4.0 L, RBC 3.60 L, Hgb 8.6 L, Hct 28.6 L, MCV 79.4 L, MCH 23.9 L, MCHC 30.1 L, RDW Std Deviation 42.4, RDW Coeff of [place] 14.7 H, Plt Count 208, MPV 9.6, Immature Gran % (Auto) 0.700, Neut % (Auto) 63.1, Lymph % (Auto) 28.6, [place] % (Auto) 6.2, Eos % (Auto) 1.2, Baso % (Auto) 0.2, Absolute Neuts (auto) 2.5, Absolute Lymphs (auto) 1.15, Nucleated RBC % 0, Sodium 141, Potassium 3.6, Chloride 106, Carbon Dioxide 24.5, Anion Gap 11, BUN 12, Creatinine 0.70, Estim Creat Clear Calc 62.46, Est GFR (MDRD) Non-Af 89, BUN/Creatinine Ratio 17.3, Glucose 92, Calcium 8.8 Microbiology: Microbiology 01/22/25 10:37 Stool Stool Occult Blood (MARQUES) - Final Occult Blood Positive 01/22/25 10:37 Stool Enteric Bacteriology - Final 01/22/25 10:37 Stool Clostridioides difficile (PCR) - Final 01/22/25 11:37 Mucosa - Nose SARS-CoV-2, Influenza & RSV (PCR) - Final D/C Instructions DC O2, CPAP, BIPAP Needs Home O2 Discharge instructions: No Meaningful Use Info Meaningful Use Meaningful Use Diagnoses (Choose all that apply): None applicable Ischemic Stroke Statin Dosing Therapy Reference: STATIN DOSE THERAPY REFERENCE: * Patients > 75 years receive moderate or high dose statin therapy. * Patients 75 years or YOUNGER should receive HIGH intensity statin dose unless contraindicated. You will be required to document reason for non-treatment if statin daily dose does not meet guidelines. HIGH DOSE STATIN THERAPY DAILY Atorvastatin > than or = to 40 mg Rosuvastatin > than or = to 20 mg Amlodipine + Atorvastatin > than or = to 2.5/40 mg Ezetimibe + Simvastatin 10/80 mg Simvastatin 80mg Discharge Plan Admission Admit Date/Time: 01/24/25 13:18 Primary Reason for Your Visit: Syncope due to severe anemia, gi bleed Attending Provider: Naseem Rios Primary Care Provider: Gary Merrill Consulting Providers: Dann London; Maggie Eldridge Discharge Orders/Prescriptions Prescriptions: Continued atorvastatin 40 mg tablet 40 mg PO DAILY melatonin 3 mg tablet 3 mg PO HS PRN (Reason: sleep) tizanidine 4 mg capsule 4 mg PO Q8H PRN (Reason: muscle spasticity) prednisone 5 mg tablet 5 mg PO DAILY Qty: 100 3RF Patient Comments: TAKING 10 MG DAILY SINCE 01/19/25 Rx Instructions: double dose for fever/acute illness metoprolol succinate 50 MG tablet 50 mg PO DAILY Qty: 0 0RF Rx Instructions: Hold if heart rate less than 60/min acetaminophen 500 mg Tablet 1,000 mg PO Q6H PRN PRN (Reason: Pain Score 1-5) Qty: 0 0RF pantoprazole 40 mg Tablet,Delayed Release (Dr/Ec) 40 mg PO DAILY Qty: 30 0RF ondansetron HCl 8 mg tablet 8 mg PO Q8H PRN (Reason: nausea and vomiting) Patient Comments: take 1 tablet by mouth every 8 hours if needed for nausea and vomiting azithromycin 250 mg tablet 250 mg PO DAILY lisinopril 40 mg tablet 40 mg PO DAILY amlodipine 5 mg tablet 5 mg PO DAILY cholecalciferol (vitamin D3) 1,250 mcg (50,000 unit) capsule 1,250 mcg PO QWEEK Patient Comments: SUNDAY @ 999 albuterol sulfate 90 mcg/actuation HFA aerosol inhaler 2 puff INHALATION Q4H Held Eliquis 5 mg Tablet 5 mg PO BID 30 Days Qty: 60 0RF Hold Instructions: Hold for 5 more days until she sees GI for EGD Patient Comments: HOLD 2 DAYS PRIOR TO PROCEDURE PER Referrals / Follow Up: Gary Merrill MD [Primary Care Provider] - Jason Antonio DO [Med Staff - Active Staff] - In 1 Week (For EGD) Disposition Disposition (needs filled in before D/C Order can be placed): Home, Self Care Charges/Coding Visit Charges Inpatient E&M: 83572 Disch Hosp >30min
[2025-01-25] MEDS: Hydrocortisone Sod Succinate 100 MG/2 ML Vial 50 MG IV (11:36)
[2025-01-25] MEDS: 0.9% Saline Lock 10 ML Syringe IV (11:36)
[2025-01-25 14:48] VITALS: BP 163/74; PULSE 83; RESP 18; TEMP 36.1; O2SAT 98
== END 2025-01-25 15:31 | disposition home or self-care (01) | DRG 312 ==
LOC: ED 15:09 → PCU 15:37
PROVIDERS: Student in an Organized Health Care Education/Training Program; Admitting Provider Internal Medicine; Emergency Provider Emergency Medicine; PCP Family Medicine; Visit Provider Internal Medicine
DX: I95.1 Orthostatic hypotension (principal); R13.10 Dysphagia, unspecified; D50.9 Iron deficiency anemia, unspecified; G31.9 Degenerative disease of nervous system, unspecified; I10 Essential (primary) hypertension; J06.9 Acute upper respiratory infection, unspecified; E78.5 Hyperlipidemia, unspecified; K21.9 Gastro-esophageal reflux disease without esophagitis; Z80.8 Family history of malignant neoplasm of other organs or systems; Z79.01 Long term (current) use of anticoagulants; Z87.891 Personal history of nicotine dependence; Z82.49 Family history of ischemic heart disease and other diseases of the circulatory system; R53.1 Weakness; Z86.718 Personal history of other venous thrombosis and embolism; Z85.820 Personal history of malignant melanoma of skin; Z86.16 Personal history of COVID-19; Z86.711 Personal history of pulmonary embolism
CPT/HCPCS: 36415; 70470; 71045; 80048; 80053; 80076; 81001; 82274; 82728; 82962; 83540; 83550; 83735; 83880; 84100; 84443; 84484; 85014; 85018; 85025; 85610; 86850; 86900; 86901; 87493; 87506; 87631; 93005; 93306; 97161; 97165; 97802; 99285; P9016; Q9967; A4216; J2405

== ENCOUNTER 2025-01-30 08:02 | Day surgery (SDC) | payer MEDICARE, OTHER, SELFPAY ==
--- NOTE | 2025-01-28 12:01 | PAT.ANE_ITS ---
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 When Was Last Pacemaker Check QUESTION #4 FULL TEXT: You/Your Family Experience fever (hyperthermia) with Anesthesia Last Oral Intake Last Oral intake: Last Oral Intake NPO since Meds taken in AM with sips of water? Meds patient instructed to take am of surgery PONV PONV - balance bridge inspector: PONV - balance bridge inspector Female Yes 01/28/25 11:21 HX of Motion Sickness No 01/28/25 11:21 HX of N/V After Surgery No 01/28/25 11:21 Non-Smoker Yes 01/28/25 11:21 Duration of Surgery greater No 01/28/25 11:21 than 60 minutes Number of Risk Factors 2 01/28/25 11:21 PONV Score Moderate Risk 01/28/25 11:21 Height & Weight Height & Weight: Anesthesia: Height & Weight Height 5 ft 6 in 01/23/25 12:36 Respiratory Assessment Respiratory Assessment - balance bridge inspector: Respiratory Tract Infection Hx - balance bridge inspector Hx Respiratory Tract Infection No 01/28/25 11:21 STOP Sleep Apnea STOP Sleep Apnea - balance bridge inspector: STOP Sleep Apnea - balance bridge inspector Hx Hypertension Yes: NOT CONTROLLED, PT TO 01/28/25 11:21 START ANOTHER MEDBUT HASN'T YET Hx Sleep Apnea No 01/28/25 11:21 CPAP No 01/28/25 11:21 BIPAP No 01/28/25 11:21 Do you snore loudly (louder No 01/28/25 11:21 than talking or can be heard Do you often feel tired/ No 01/28/25 11:21 fatigued/ sleepy during daytime? Has anyone observed you stop No 01/28/25 11:21 breathing during sleep? STOP Results Negative 01/28/25 11:21 QUESTION #5 FULL TEXT : Do you snore loudly (louder than talking or can be heard through closed doors)? 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 Specify any problems Hx of Preganancy in last 3 No 01/28/25 11:21 Months Nurse Filling Out Transfusion VCHRISTIN 01/28/25 11:21 & Questions: Date: 01/28/25 01/28/25 11:21 Time: 11:24 01/28/25 11:21 Patient unable to answer at this time (ie. confused, unrespo /Reproduction History /Reproductive History - balance bridge inspector: /Reproductive Hx- balance bridge inspector Hx Now No 01/28/25 11:21 Gestational Age (in weeks): EDC: Hx Hx Para Hx Section SAB No 01/28/25 11:21 PFSH Medical History History of Holter monitoring Hx of malignant carcinoid tumor Weakness Chronic pain Obesity (BMI 30.0-34.9) History of syncope Generalized abdominal pain Wears glasses Arthritis Neuropathy History of pain when walking History of echocardiogram Cardiology follow-up encounter History of atrial fibrillation Syncopal episodes Metastatic melanoma Duodenal mass Post-menopausal History of steroid therapy Anemia History of immunosuppression therapy Seizures Adrenal insufficiency 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 Bilateral pulmonary embolism Pulmonary emboli Left leg DVT Anticoagulated Former smoker Mild cognitive impairment COVID-19 Polyneuropathy Essential hypertension GERD (gastroesophageal reflux disease) Hyperlipidemia Home Medications ?Medication ?Instructions ?Recorded ?Last Taken ?Type metoprolol succinate 50 mg 50 mg PO DAILY heart rate # #0 08/15/20 10/06/24 Rx tablet,extended release 24 hr atorvastatin 40 mg tablet 40 mg PO DAILY cholesterol 0 09/24/20 10/06/24 History acetaminophen 500 mg tablet 1,000 mg (2 x 500 mg) PO Q 6H PRN 07/27/23 10/07/24 07:20 Rx PRN Pain Score 1-5 #0 tabs apixaban 5 mg tablet (Eliquis) 5 mg PO BID blood thinn er 30 days 07/27/23 01/23/25 Rx #60 tabs pantoprazole 40 mg tablet,delayed 40 mg PO DAILY #30 t abs 08/29/23 10/06/24 Rx release melatonin 3 mg tablet 3 mg PO HS PRN sleep 4 Unknown History ondansetron HCl 8 mg tablet 8 mg PO Q8H PRN nausea and vomiting 11/02/23 Unknown History prednisone 5 mg tablet 5 mg PO DAILY #100 tabs 08/0 09/1910/07/24 Rx tizanidine 4 mg capsule 4 mg PO Q8H PRN muscle spast icity 03/27/24 Unknown History amlodipine 5 mg tablet 5 mg PO DAILY 01/22/25 Unkno wn History azithromycin 250 mg tablet 250 mg PO DAILY PRN DENTAL WORK 01/22/25 Unknown History cholecalciferol (vitamin D3) 1,250 1,250 mcg PO QWEEK 01/22/25 Unknown History mcg (50,000 unit) capsule lisinopril 40 mg tablet 40 mg PO DAILY 01/22/25 Unkn own History dicyclomine 10 mg capsule 10 mg PO BID PRN abdominal p ain 01/28/25 Unknown History diphenoxylate-atropine 2.5 1 tab PO QHS PRN diarrhea 0 01/28/25 Unknown History mg-0.025 mg tablet (Lomotil) ibuprofen 200 mg tablet (Advil) 200 mg PO TID PRN pain 01/28/25 Unknown History Allergy/AdvReac Type Severity Reaction Status Date / Time Sulfa (Sulfonamide Allergy Severe Swelling Verified 01/28/25 11:03 Antibiotics) amoxicillin AdvReac Severe Diarrhea Verified 01/28/25 11:03 sulfamethoxazole (From AdvReac Severe Anaphylaxis Verified 01/28/25 11:03 Bactrim) trimethoprim (From Bactrim) AdvReac Severe Swelling Verified 01/28/25 11:03 Family History Brother Alcoholism Asthma Myocardial infarction, Onset Age: 52 Seizures Skin cancer Sister CVA (cerebral vascular accident) Asthma Grandfather Asthma Father Myocardial infarction, Onset Age: 46 Had at age 46 & 62 Mother Myocardial infarction, Onset Age: 82 Surgical History Hx of surgical procedure History of total left hip replacement History of amputation of finger History of right hip replacement History of cataract surgery History of eye surgery Social History household members: spouse Smoking Status: Former smoker Tobacco: How many years used: 30 how long ago did patient quit smokin years ago second hand exposure: No alcohol intake: current alcohol intake frequency: holidays/special occasions only Alcohol type: wine substance use type: does not use amy/voodoo: None seatbelt use: always Audit: Pertinent Findings Pertinent Findings EKG Perinent findings: 09/2024: Sinus tachycardia, nonspecific ST abnormality Echo (EF%) pertinent findings: 01/23/2025: EF 55-60%, normal LV systolic fxn, otherwise WNL exam Recommendation Anesthesia Recommendation Anesthesia recommendation: OPTIMIZED for anesthesia
[2025-01-30] VITALS (7 sets, daily range): BP systolic 129–149; BP diastolic 54–60; PULSE 66–77; RESP 16; TEMP 36.2–36.4; O2SAT 95–100; BMI 29.8
--- NOTE | 2025-01-30 08:22 | PRE.ANES_ITS ---
ASA Classification* ASA Classification ASA Classification: 3 Assessment & Plan Anesthesia* Anesthesia Assessment Anesthesia Assessment: Discussed sedation and/or anesthesia options, risks, benefits, and alternatives with patient/parents/legal guardian/POA. Questions invited. The patient/parents/legal guardian/POA seems to understand and agrees to proceed with anesthesia plan. Reviewed the physical assessment, medical history, allergy history and patient home medications list prior to surgery/procedure/anesthetic and documented any changes. Performed airway and anesthesia risk assessments. Anesthesia Type Anesthesia Type: MAC Anesthesia Focused Assessment* Airway Assessment Mouth opens: >3 cm Mallampati Score: II Focused Labs Anesthesia Preop lab: CBC WBC 4.0 K/mm3 (4.4-11.0) L 01/25/25 04:47 01/25/25 RBC 3.60 M/mm3 (4.2-5.4) L 01/25/25 04:47 01/25/25 Hgb 8.6 g/dL (12.0-15.0) L 01/25/25 04:47 01/25/25 Hct 28.6 % (37-47) L 01/25/25 04:47 01/25/25 Plt Count 208 K/mm3 (150-450) 01/25/25 04:47 01/25/25 CHEMISTRY Potassium 3.6 mmol/L (3.3-5.1) 01/25/25 04:47 01/25/25 Sodium 141 mmol/L (133-145) 01/25/25 04:47 01/25/25 Magnesium 2.0 mg/dL (1.5-2.2) 01/23/25 04:50 01/23/25 Phosphorus 2.7 mg/dL (2.7-4.5) 01/23/25 04:50 01/23/25 BUN 12 mg/dL (4-19) 01/25/25 04:47 01/25/25 Creatinine 0.70 mg/dL (0.70-1.20) 01/25/25 04:47 01/25/25 Glucose 92 mg/dL (70-99) 01/25/25 04:47 01/25/25 POC Glucose 101 mg/dL (74-106) 01/23/25 12:28 01/23/25 TSH 0.686 uIU/mL (0.300-4.200) 01/23/25 04:50 12/27 COAG PT 17.7 SECONDS (11.7-14.9) H 01/23/25 04:50 12/27 Urine Test Negative Negative 08/27/23 22:15 08/27/23 Pre-Assessment Diagnosis/Proposed Procedure Planned Operative Procedure(s): COLONOSCOPY/EGD Anesthesia History 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 When Was Last Pacemaker Check QUESTION #4 FULL TEXT: You/Your Family Experience fever (hyperthermia) with Anesthesia Last Oral Intake Last Oral intake: Last Oral Intake NPO since Meds taken in AM with sips of water? Meds patient instructed to take am of surgery PONV PONV - heel lining paster: PONV - heel lining paster Female Yes 01/28/25 11:21 HX of Motion Sickness No 01/28/25 11:21 HX of N/V After Surgery No 01/28/25 11:21 Non-Smoker Yes 01/28/25 11:21 Duration of Surgery greater No 01/28/25 11:21 than 60 minutes Number of Risk Factors 2 01/28/25 11:21 PONV Score Moderate Risk 01/28/25 11:21 Height & Weight Height & Weight: Anesthesia: Height & Weight Height 5 ft 6 in 01/23/25 12:36 Respiratory Assessment Respiratory Assessment - heel lining paster: Respiratory Tract Infection Hx - heel lining paster Hx Respiratory Tract Infection No 01/28/25 11:21 STOP Sleep Apnea STOP Sleep Apnea - heel lining paster: STOP Sleep Apnea - heel lining paster Hx Hypertension Yes: NOT CONTROLLED, PT TO 01/28/25 11:21 START ANOTHER MEDBUT HASN'T YET Hx Sleep Apnea No 01/28/25 11:21 CPAP No 01/28/25 11:21 BIPAP No 01/28/25 11:21 Do you snore loudly (louder No 01/28/25 11:21 than talking or can be heard Do you often feel tired/ No 01/28/25 11:21 fatigued/ sleepy during daytime? Has anyone observed you stop No 01/28/25 11:21 breathing during sleep? STOP Results Negative 01/28/25 11:21 QUESTION #5 FULL TEXT : Do you snore loudly (louder than talking or can be heard through closed doors)? 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 Specify any problems Hx of Preganancy in last 3 No 01/28/25 11:21 Months Nurse Filling Out Transfusion VCHRISTIN 01/28/25 11:21 & Questions: Date: 01/28/25 01/28/25 11:21 Time: 11:24 01/28/25 11:21 Patient unable to answer at this time (ie. confused, unrespo /Reproduction History /Reproductive History - heel lining paster: /Reproductive Hx- heel lining paster Hx Now No 01/28/25 11:21 Gestational Age (in weeks): EDC: Hx Hx Para Hx Section SAB No 01/28/25 11:21 Active Medications Active Medications: Current Medications Generic Name Dose Route Start Last Admin Trade Name Freq PRN Reason Stop Dose Admin Lactated Ringer's 1,000 mls @ 15 mls/hr 01/30/25 08:15 IV .Q48H [facility] Medical History History of Holter monitoring Hx of malignant carcinoid tumor Weakness Chronic pain Obesity (BMI 30.0-34.9) History of syncope Generalized abdominal pain Wears glasses Arthritis Neuropathy History of pain when walking History of echocardiogram Cardiology follow-up encounter History of atrial fibrillation Syncopal episodes Metastatic melanoma Duodenal mass Post-menopausal History of steroid therapy Anemia History of immunosuppression therapy Seizures Adrenal insufficiency 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 Bilateral pulmonary embolism Pulmonary emboli Left leg DVT Anticoagulated Former smoker Mild cognitive impairment COVID-19 Polyneuropathy Essential hypertension GERD (gastroesophageal reflux disease) Hyperlipidemia Home Medications ?Medication ?Instructions ?Recorded ?Last Taken ?Type metoprolol succinate 50 mg 50 mg PO DAILY heart rate # #0 08/15/20 10/06/24 Rx tablet,extended release 24 hr atorvastatin 40 mg tablet 40 mg PO DAILY cholesterol 0 09/24/20 10/06/24 History acetaminophen 500 mg tablet 1,000 mg (2 x 500 mg) PO Q 6H PRN 07/27/23 10/07/24 07:20 Rx PRN Pain Score 1-5 #0 tabs apixaban 5 mg tablet (Eliquis) 5 mg PO BID blood thinn er 30 days 07/27/23 01/23/25 Rx #60 tabs pantoprazole 40 mg tablet,delayed 40 mg PO DAILY #30 t abs 08/29/23 10/06/24 Rx release melatonin 3 mg tablet 3 mg PO HS PRN sleep 4 Unknown History ondansetron HCl 8 mg tablet 8 mg PO Q8H PRN nausea and vomiting 11/02/23 Unknown History prednisone 5 mg tablet 5 mg PO DAILY #100 tabs 08/0 09/1910/07/24 Rx tizanidine 4 mg capsule 4 mg PO Q8H PRN muscle spast icity 03/27/24 Unknown History amlodipine 5 mg tablet 5 mg PO DAILY 01/22/25 Unkno wn History azithromycin 250 mg tablet 250 mg PO DAILY PRN DENTAL WORK 01/22/25 Unknown History cholecalciferol (vitamin D3) 1,250 1,250 mcg PO QWEEK 01/22/25 Unknown History mcg (50,000 unit) capsule lisinopril 40 mg tablet 40 mg PO DAILY 01/22/25 Unkn own History dicyclomine 10 mg capsule 10 mg PO BID PRN abdominal p ain 01/28/25 Unknown History diphenoxylate-atropine 2.5 1 tab PO QHS PRN diarrhea 0 01/28/25 Unknown History mg-0.025 mg tablet (Lomotil) ibuprofen 200 mg tablet (Advil) 200 mg PO TID PRN pain 01/28/25 Unknown History Allergy/AdvReac Type Severity Reaction Status Date / Time Sulfa (Sulfonamide Allergy Severe Swelling Verified 01/30/25 08:21 Antibiotics) amoxicillin AdvReac Severe Diarrhea Verified 01/30/25 08:21 sulfamethoxazole (From AdvReac Severe Anaphylaxis Verified 01/30/25 08:21 Bactrim) trimethoprim (From Bactrim) AdvReac Severe Swelling Verified 01/28/25 11:03 Family History Brother Alcoholism Asthma Myocardial infarction, Onset Age: 52 Seizures Skin cancer Sister CVA (cerebral vascular accident) Asthma Grandfather Asthma Father Myocardial infarction, Onset Age: 46 Had at age 46 & 62 Mother Myocardial infarction, Onset Age: 82 Surgical History Hx of surgical procedure History of total left hip replacement History of amputation of finger History of right hip replacement History of cataract surgery History of eye surgery Social History household members: spouse Smoking Status: Former smoker Tobacco: How many years used: 30 how long ago did patient quit smokin years ago second hand exposure: No alcohol intake: current alcohol intake frequency: holidays/special occasions only Alcohol type: wine substance use type: does not use amy/confucianist: None seatbelt use: always Review of Systems (Anesthesia) ROS Narrative System reviewed and no additional complaints, except as documented.
[2025-01-30] MEDS: Lactated Ringers 1,000 ML 15 ML IV (08:25)
--- NOTE | 2025-01-30 09:00 | HP.PCM_ITS ---
HPI - General General Date of Admission: 01/30/25 Date of Service: 01/30/25 Chief Complaint: dysphagia HPI Narrative MISTI HUERTA, is a 79 F who presents for evaluation of dysphagia. *[facility] hospitalization 08.26.23-08.29.23 with history of metastatic melanoma with immunotherapy (infliximab) which caused development of colitis requiring high- dose steroid use and recent identification of pulmonary embolism requiring anticoagulation use. Admission needed for inability to tolerate PO intake due to significant epigastric pain and emesis; anemia with worsening hgb (9.6). CT abd/pel 08.26.23 IV only mild splenomegaly. EGD 08.28.23 mass protruding through pylorus into stomach causing ball-valve effect; duodenal bulb with medium villous/frond-like mass, adenomatous polyp without dysplasia. [facility] hospitalization 09.01.23-09.07.23 for management of worsening abdominal pain and diarrhea with diaphoresis, pallor, dizziness and nausea with confusion. C.Difficile infection treated and discharged. CT abd/pel IV 09.01.23 only stable simple hepatic and renal cysts, benign; colonic diverticulosis Stool 09.01.23 O/P WNL. lactoferrin +, C.difficile PCR and A/B ag+ OV 2..24 she has had improvement since discharge. Underwent new treatment for cancer that caused ?blow out of bowels? and has since had problems with urgent, frequent loose stools that can cause fecal leaking alternating with constipation for 4-5 days. Has attempted some OTC medications that she cannot remember but have not been successful. [facility] hospitalization 11.02.23 - 11.05.23 presents with nausea, vomiting, diarrhea, a nd a syncopal episode that occurred today. She reports that she was feeling well earlier today. Later in the afternoon, she began to feel nauseous and had multiple bouts of vomiting and diarrhea. She was sitting on the toilet when she became lightheaded and had a syncopal episode, hitting her forehead against the wall. OV 6.27.24 pt reports that she is feeling much better since starting her pr obiotic, reports normal BM. Pt reports that recently she has noticed food and liquid feeling stuck in her throat. Continues with pantoprazole. EGD 03.04.24 Normal esophagus. Normal gastric body. Likely benign duodenal mass. Complete removal was accomplished. Injected. Duodenal lipoma. Biopsied. GET 7.24.24 normal 31.28 minutes Barium Swallow Study 7.29.24 normal OV 8.22.24 pt reports that she is feeling well overall and denies GI symptoms of concern at this time. Pt reports improvement in diarrhea and constipation. OV 11.27.24 - Patient here for follow up. Doing well overall. No GI symptoms or concerns. OV 5.5.25 pt reports occasionally feeling like stuff is getting stuck in her lower esophagus. pt reports that she continues with Budesonide 9mg, but is unsure if she needs to continue it. [facility] Medical History History of Holter monitoring Hx of malignant carcinoid tumor Weakness Chronic pain Obesity (BMI 30.0-34.9) History of syncope Generalized abdominal pain Wears glasses Arthritis Neuropathy History of pain when walking History of echocardiogram Cardiology follow-up encounter History of atrial fibrillation Syncopal episodes Metastatic melanoma Duodenal mass Post-menopausal History of steroid therapy Anemia History of immunosuppression therapy Seizures Adrenal insufficiency 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 Bilateral pulmonary embolism Pulmonary emboli Left leg DVT Anticoagulated Former smoker Mild cognitive impairment COVID-19 Polyneuropathy Essential hypertension GERD (gastroesophageal reflux disease) Hyperlipidemia Home Medications ?Medication ?Instructions ?Recorded ?Last Taken ?Type metoprolol succinate 50 mg 50 mg PO DAILY heart rate # #0 08/15/20 01/30/25 06:15 Rx tablet,extended release 24 hr atorvastatin 40 mg tablet 40 mg PO DAILY cholesterol 0 09/24/20 10/06/24 History acetaminophen 500 mg tablet 1,000 mg (2 x 500 mg) PO Q 6H PRN 07/27/23 10/07/24 07:20 Rx PRN Pain Score 1-5 #0 tabs apixaban 5 mg tablet (Eliquis) 5 mg PO BID blood thinn er 30 days 07/27/23 01/23/25 Rx #60 tabs pantoprazole 40 mg tablet,delayed 40 mg PO DAILY #30 t abs 08/29/23 10/06/24 Rx release melatonin 3 mg tablet 3 mg PO HS PRN sleep 4 Unknown History ondansetron HCl 8 mg tablet 8 mg PO Q8H PRN nausea and vomiting 11/02/23 Unknown History prednisone 5 mg tablet 5 mg PO DAILY #100 tabs 09/1901/30/25 06:15 Rx tizanidine 4 mg capsule 4 mg PO Q8H PRN muscle spast icity 03/27/24 Unknown History amlodipine 5 mg tablet 5 mg PO DAILY 01/22/25 Unkno wn History azithromycin 250 mg tablet 250 mg PO DAILY PRN DENTAL WORK 01/22/25 Unknown History cholecalciferol (vitamin D3) 1,250 1,250 mcg PO QWEEK 01/22/25 Unknown History mcg (50,000 unit) capsule lisinopril 40 mg tablet 40 mg PO DAILY 01/22/25 Unkn own History dicyclomine 10 mg capsule 10 mg PO BID PRN abdominal p ain 01/28/25 Unknown History diphenoxylate-atropine 2.5 1 tab PO QHS PRN diarrhea 0 01/28/25 Unknown History mg-0.025 mg tablet (Lomotil) ibuprofen 200 mg tablet (Advil) 200 mg PO TID PRN pain 01/28/25 Unknown History Allergy/AdvReac Type Severity Reaction Status Date / Time Sulfa (Sulfonamide Allergy Severe Swelling Verified 01/30/25 08:21 Antibiotics) amoxicillin AdvReac Severe Diarrhea Verified 01/30/25 08:21 sulfamethoxazole (From AdvReac Severe Anaphylaxis Verified 01/30/25 08:21 Bactrim) trimethoprim (From Bactrim) AdvReac Severe Swelling Verified 01/28/25 11:03 Family History Brother Alcoholism Asthma Myocardial infarction, Onset Age: 52 Seizures Skin cancer Sister CVA (cerebral vascular accident) Asthma Grandfather Asthma Father Myocardial infarction, Onset Age: 46 Had at age 46 & 62 Mother Myocardial infarction, Onset Age: 82 Surgical History Hx of surgical procedure History of total left hip replacement History of amputation of finger History of right hip replacement History of cataract surgery History of eye surgery Social History household members: spouse Smoking Status: Former smoker Tobacco: How many years used: 30 how long ago did patient quit smokin years ago second hand exposure: No alcohol intake: current alcohol intake frequency: holidays/special occasions only Alcohol type: wine substance use type: does not use amy/taoist: None seatbelt use: always ROS Constitutional Constitutional: Denies fatigue, fever(s), poor appetite, weight gain or weight loss Gastrointestinal Gastrointestinal: Denies belching, bloating, change in bowel habits, change in stool character, chewing difficulty, coffee ground emesis, constipation, cramping, diarrhea, dyspepsia, dysphagia, early satiety, excessive flatus, fecal incontinence, heartburn, hematemesis, hematochezia, hemorrhoids, loose stools, melena, nausea, odynophagia, rectal bleeding, tenesmus, vomiting or weight changes Vital Signs Vital Signs Vital Signs: 01/30/25 08:23 01/30/25 08:23 Temperature 97.5 F L Temperature Source Temporal Pulse Rate 75 Respiratory Rate 16 Respiratory Pattern Normal Blood Pressure 149/56 H Blood Pressure Mean 87 Blood Pressure Source Monitor Blood Pressure Position Semi-Fowlers Blood Pressure Location Right Arm Pulse Ox 100 Oxygen Delivery Method Room Air Weight Weight: 184 lb 11.958 oz Body Mass Index (BMI) 29.8 Physical Exam Const alert, oriented x3, no apparent distress and healthy appearing General Appearance: cooperative GI normal to inspection, nondistended, normoactive bowel sounds, soft to palpation, non-tender and non-distended Percussion: normal to percussion Rectal Exam: deferred Assessment & Plan Assessment/Plan (1) Dysphagia: PLAN: Assessment and Plan Assessment and Plan (1) Acute anemia: Status: Acute Plan: We will repeat iron studies and cbc as her last hgb is 9.7 from 12.3. 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 difficile infection and immunotherapy that she was given for metastatic melanoma. Initially her fecal calprotectin was up to 900 and is down to 400 on budesonide therapy. Therefore we will continue budesonide for now. She is also getting low-dose steroids for recent diagnosis of adrenal insufficiency. She is not having any hot flashes, rashes. Her weight is back up to what it was prior to her going into the hospital. I told her that I would not stop her budesonide at this time because it seems to be really controlling her inflammation in her small bowel and colon. They will follow-up in 6 months. (4) Abdominal pain: Status: Resolved Qualifiers: Abdominal location: generalized Qualified Code(s): R10.84 - Generalized abdominal pain (5) Dysphagia: Status: Acute Plan: Dysphagia and refractory GERD. Add 40 mg of famotidine in the morning and at night. The Orders: Orders CBC W/Diff, Automated Today D64.9 - Anemia, unspecified Ferritin Today D64.9 - Anemia, unspecified Haptoglobin Today D64.9 - Anemia, unspecified LDH Today D64.9 - Anemia, unspecified Iron Today D64.9 - Anemia, unspecified Retic Panel Count Today D64.9 - Anemia, unspecified
--- NOTE | 2025-01-30 09:15 | EGD_PTH ---
PATIENT: MISTI HUERTA LOC: EN U#:[id number] AGE/SX: 79/F ROOM: RE01/30/[address]: Dr. Jason Antonio DO : 1945 BED: DIS: 01/30/2025 SPEC #: [id number] RECD: 01/30/25 13:41 STATUS: JOSE RAMON RESaul #: [id number] MAYA: 01/30/25 09:[address]: Jason Antonio DEPT: SURGICAL PATHOLOGY RECD BY: Mundo Catherine ENTERED: 01/30/25 13:55 SP TYPE: EGD BIOPSY REYNA DR: Dr. Gary Merrill MD Tissues: A - Duodenum, NOS B - COLON BIOPSY Procedures: Immunohistochemical Stains Surgery Specimen Level IV HEADER OPERATION: Colonoscopy, EGD with saline lift, polypectomy, dilation PRE-OP DIAGNOSIS: Acute anemia, alternating constipation and diarrhea, diarrhea, abdominal pain, dysphagia TISSUE SUBMITTED: A- Duodenal polyp, B- Random colon biopsy MICROSCOPIC DIAGNOSIS A. Small bowel, duodenum, polyp, biopsy: * Benign hyperplasia with reactive/reparative features- see Comment. * Negative for dysplasia (Ki67 demonstrates patchy crypt staining). B. Colon, random, biopsy: * Focal active colitis - see note. * The histologic features of microscopic colitis are not demonstrated. Note: Focal active colitis may be a reflection of bowel prep artifact, medication reaction, infection, or ischemia. The history of immunotherapy is noted. COMMENT Selected slides/images were reviewed in intradepartmental consultation at the GI Pathology division Consensus Conference ([facility]). MICROSCOPIC DESCRIPTION Slides are reviewed. All matched controls reacted appropriately. These tests were developed and their performance characteristics determined by [facility]. They may not have been cleared or approved by the U.S. Food and Drug Administration. The FDA has determined that such clearance or approval is not necessary.? The above immunohistochemical/dualISH?markers are ordered and reviewed by the Pathologist. GROSS DESCRIPTION A. Received in formalin in a container labeled with the patient's name, date of , and duodenal polyp are multiple small thompson-pink fragments of mucosal tissue measuring 1.1 x 0.4 x 0.2 cm in aggregate. Submitted in toto in A1. B. Received in formalin in a container labeled with the patient's name, date of , and random colon biopsies are multiple thompson-pink fragments of mucosal tissue measuring 1.2 x 0.7 x 0.3 cm in aggregate. Submitted in toto in B1. [facility] 01-30-2025 CPT:15664s2,87162
--- NOTE | 2025-01-30 10:56 | PCM.POST.ANE ---
Anesthesia: Postop Eval I Current Vital Signs Temperature: 97.6 F Pulse Rate: 77 Blood Pressure: 136/54 Respiratory Rate: 16 Pulse Ox: 97 Oxygen Delivery Method: Room Air Assessment Airway patent: Yes Spontaneous unlabored respirations: Yes Mental status: Awake and Calm nausea: No Vomiting: No Anesthesia Complication: No Fluid Hydration Crystalloid volume administer (ml): 800 Total IV fluid infused: 800 Progress Note Anesthesia document: Postop Eval 1 completed: Yes
--- NOTE | 2025-01-30 11:00 | OP.CCLET_ITS ---
01/30/2025 Gary Merrill [address] [place] [address] Re : Upper GI endoscopy procedure for Shikha Terry Dear Dr. Merrill This procedure was performed on Thursday, January 30, 2025. My impressions and recommendations are as follows: Impressions : - Abnormal esophageal motility, suspicious for achalasia. Dilated. - No gross lesions in the entire stomach. - A single duodenal polyp. Resected and retrieved. Treated with argon plasma coagulation (APC). Recommendations : - Discharge patient to home. - Resume previous diet. - Continue present medications. - Await pathology results. My findings are described in the full procedure note, which is enclosed. If I can be of further assistance, please feel free to contact me at . Sincerely, Jason Antonio, 01/30/2025 10:59:48 AM This report has been signed electronically.
--- NOTE | 2025-01-30 11:00 | OP.EGD_ITS ---
Patient Name: Shikha Terry Procedure Date: 01/30/2025 9:43 AM Date of : 1945 Age: 79 Procedure: Upper GI endoscopy Indications: Epigastric abdominal pain Providers: Jason Antonio DO Referring MD: Gary Merrill Medicines: Monitored Anesthesia Care Patient Profile: This is a 79 year old female. Refer to note in patient chart for documentation of history and physical. Patient has symptoms of dysphagia with both liquids and solids. Complications: No immediate complications. Procedure: Pre-Anesthesia Assessment: - Prior to the procedure, a History and Physical was performed, and patient medications and allergies were reviewed. The patient is competent. The risks and benefits of the procedure and the sedation options and risks were discussed with the patient. All questions were answered and informed consent was obtained. Patient identification and proposed procedure were verified by the physician. Mental Status Examination: alert and oriented. Airway Examination: normal oropharyngeal airway and neck mobility. Respiratory Examination: clear to auscultation. CV Examination: normal. Prophylactic Antibiotics: The patient does not require prophylactic antibiotics. Prior Anticoagulants: The patient has taken no anticoagulant or antiplatelet agents except for NSAID medication. ASA Grade Assessment: II - A patient with mild systemic disease. After reviewing the risks and benefits, the patient was deemed in satisfactory condition to undergo the procedure. The anesthesia plan was to use monitored anesthesia care (MAC). Immediately prior to administration of medications, the patient was re-assessed for adequacy to receive sedatives. The heart rate, respiratory rate, oxygen saturations, blood pressure, adequacy of pulmonary ventilation, and response to care were monitored throughout the procedure. The physical status of the patient was re-assessed after the procedure. After obtaining informed consent, the endoscope was passed under direct vision. Throughout the procedure, the patient's blood pressure, pulse, and oxygen saturations were monitored continuously. The Colonoscope was introduced through the mouth, and advanced to the fourth part of the duodenum. Small bowel enteroscopy was deemed necessary. The upper GI endoscopy was accomplished without difficulty. The patient tolerated the procedure well. Scope In: 10:01:24 AM Scope Out: 10:23:10 AM Total Procedure Duration Time 0 hours 21 minutes 46 seconds Findings: Abnormal motility was noted in the upper third of the esophagus. The cricopharyngeus was abnormal. There is a decrease in motility of the esophageal body. The distal esophagus/lower esophageal sphincter is spastic, but gives up passage to the endoscope. Primary peristaltic waves are noted. A guidewire was placed and the scope was withdrawn. Dilation was performed with a Savary dilator with no resistance at 54 Fr. The dilation site was examined and showed moderate improvement in luminal narrowing. Estimated blood loss was minimal. No gross lesions were noted in the entire examined stomach. A single 13 mm sessile polyp with no bleeding was found in the duodenal bulb. The polyp was removed with a saline injection-lift technique using a hot snare. Resection and retrieval were complete. Coagulation for destruction of remaining portion of lesion using argon plasma at 0.3 liters/minute and 20 penaloza was successful. Estimated blood loss was minimal. Impression: - Abnormal esophageal motility, suspicious for achalasia. Dilated. - No gross lesions in the entire stomach. - A single duodenal polyp. Resected and retrieved. Treated with argon plasma coagulation (APC). Recommendation: - Discharge patient to home. - Resume previous diet. - Continue present medications. - Await pathology results. Procedure Code(s): --- Professional --- 17697, Small intestinal endoscopy, enteroscopy beyond second portion of duodenum, not including ileum; with removal of tumor(s), polyp(s), or other lesion(s) by snare technique 99841, 59,51, Esophagogastroduodenoscopy, flexible, transoral; with insertion of guide wire followed by passage of dilator(s) through esophagus over guide wire CPT copyright 2021 [employer]. All rights reserved. The codes documented in this report are preliminary and upon microsoft net developer review may be revised to meet current compliance requirements. Jsaon Antonio DO 01/30/2025 10:59:48 AM This report has been signed electronically. Number of Addenda: 0 Note Initiated On: 01/30/2025 9:43 AM
--- NOTE | 2025-01-30 11:00 | PCM.POSTANE2 ---
Anesthesia Postop Eval I Sum Postop Eval Completion status Anesthesia document: Postop Eval 1 completed: Yes Anesthesia Postop Eval I Summary Anesthesia Postop Eval I Summary: Anesthesia Postop Eval I: Assessment Summary Airway patent Yes 01/30/25 10:57 [email or web address] Spontaneous unlabored Yes 01/30/25 10:57 [email or web address] respirations Mental status Awake,Calm 01/30/25 10:57 [email or web address] nausea No 01/30/25 10:57 [email or web address] Vomiting No 01/30/25 10:57 [email or web address] Anesthesia Postop Eval I: Fluid Summary Crystalloid volume administer 800 01/30/25 10:57 [email or web address] (ml) Colloids volume administered ( ml) Blood Product volume administered (ml) Total IV fluid infused 800 01/30/25 10:57 [email or web address] Anesthesia Postop Eval I: Summary Notes Anesthesia Complication No 01/30/25 10:57 [email or web address] Anesthesia Complication Comment: Post-operative progress note Anesthesia: Postop Eval II Evaluation Mental status: Awake Pain Level: 0 nausea: No Vomiting: No
--- NOTE | 2025-01-30 11:02 | OP.CCLET_ITS ---
01/30/2025 Gary Merrill [address] [place] [address] Re : Colonoscopy procedure for Shikha Terry Dear Dr. Merrill This procedure was performed on Thursday, January 30, 2025. My impressions and recommendations are as follows: Impressions : - Congested mucosa in the entire examined colon. Biopsied. - Diverticulosis in the recto-sigmoid colon, in the sigmoid colon, in the descending colon, at the hepatic flexure and in the ascending colon. Recommendations : - Discharge patient to home. - Resume previous diet. - Continue present medications. - Await pathology results. - Repeat colonoscopy in 5 years for surveillance. My findings are described in the full procedure note, which is enclosed. If I can be of further assistance, please feel free to contact me at . Sincerely, Jason Antonio, 01/30/2025 11:01:21 AM This report has been signed electronically.
--- NOTE | 2025-01-30 11:02 | OP.COLON_ITS ---
Patient Name: Shikha Terry Procedure Date: 01/30/2025 10:23 AM Date of : 1945 Age: 79 Procedure: Colonoscopy Indications: Chronic diarrhea Providers: Jason Antonio DO Referring MD: Gary Merrill Medicines: Monitored Anesthesia Care Patient Profile: This is a 79 year old female. Refer to note in patient chart for documentation of history and physical. Patient has symptoms of dysphagia with both liquids and solids. Last Colonoscopy: 3 years ago. Complications: No immediate complications. Procedure: Pre-Anesthesia Assessment: - Prior to the procedure, a History and Physical was performed, and patient medications and allergies were reviewed. The patient is competent. The risks and benefits of the procedure and the sedation options and risks were discussed with the patient. All questions were answered and informed consent was obtained. Patient identification and proposed procedure were verified by the physician. Mental Status Examination: alert and oriented. Airway Examination: normal oropharyngeal airway and neck mobility. Respiratory Examination: clear to auscultation. CV Examination: normal. Prophylactic Antibiotics: The patient does not require prophylactic antibiotics. Prior Anticoagulants: The patient has taken no anticoagulant or antiplatelet agents except for NSAID medication. ASA Grade Assessment: II - A patient with mild systemic disease. After reviewing the risks and benefits, the patient was deemed in satisfactory condition to undergo the procedure. The anesthesia plan was to use monitored anesthesia care (MAC). Immediately prior to administration of medications, the patient was re-assessed for adequacy to receive sedatives. The heart rate, respiratory rate, oxygen saturations, blood pressure, adequacy of pulmonary ventilation, and response to care were monitored throughout the procedure. The physical status of the patient was re-assessed after the procedure. After I obtained informed consent, the scope was passed under direct vision. Throughout the procedure, the patient's blood pressure, pulse, and oxygen saturations were monitored continuously. The Colonoscope was introduced through the anus and advanced to the cecum, identified by the appendiceal orifice, ileocecal valve and palpation. The colonoscopy was performed without difficulty. The patient tolerated the procedure well. The quality of the bowel preparation was adequate. The ileocecal valve, appendiceal orifice, and rectum were photographed. Scope In: 10:25:23 AM Scope Withdrawal Time 0 hours 7 minutes 55 seconds Scope Out: 10:38:56 AM Total Procedure Duration Time 0 hours 13 minutes 33 seconds Findings: The perianal and digital rectal examinations were normal. An area of mildly congested mucosa was found in the entire colon. Biopsies were taken with a cold forceps for histology. Verification of patient identification for the specimen was done. Estimated blood loss was minimal. Estimated blood loss was minimal. Multiple small-mouthed diverticula were found in the recto-sigmoid colon, sigmoid colon, descending colon, hepatic flexure and ascending colon. Impression: - Congested mucosa in the entire examined colon. Biopsied. - Diverticulosis in the recto-sigmoid colon, in the sigmoid colon, in the descending colon, at the hepatic flexure and in the ascending colon. Recommendation: - Discharge patient to home. - Resume previous diet. - Continue present medications. - Await pathology results. - Repeat colonoscopy in 5 years for surveillance. Procedure Code(s): --- Professional --- 01284, Colonoscopy, flexible; with biopsy, single or multiple CPT copyright 2021 [employer]. All rights reserved. The codes documented in this report are preliminary and upon records tech review may be revised to meet current compliance requirements. Jason Antonio DO 01/30/2025 11:01:21 AM This report has been signed electronically. Number of Addenda: 0 Note Initiated On: 01/30/2025 10:23 AM
== END 2025-01-30 11:44 | disposition home or self-care (01) ==
LOC: EN 08:02 → AC 08:03
PROVIDERS: PCP Family Medicine; Referring Provider Family Medicine; Visit Provider Internal Medicine Gastroenterology
PROC: 0DJD8ZZ Inspection of Lower Intestinal Tract, Via Natural or Artificial Opening Endoscopic (ICD-10-PCS; CPT 45378; principal; 2025-01-30 09:10)
DX: R13.10 Dysphagia, unspecified (principal); R10.13 Epigastric pain; K21.9 Gastro-esophageal reflux disease without esophagitis; I10 Essential (primary) hypertension; Z87.891 Personal history of nicotine dependence; Z80.8 Family history of malignant neoplasm of other organs or systems; Z86.16 Personal history of COVID-19; E78.5 Hyperlipidemia, unspecified; G89.29 Other chronic pain; Z79.01 Long term (current) use of anticoagulants; Z82.49 Family history of ischemic heart disease and other diseases of the circulatory system; Z86.711 Personal history of pulmonary embolism; Z86.718 Personal history of other venous thrombosis and embolism; D64.9 Anemia, unspecified; R19.7 Diarrhea, unspecified; R10.84 Generalized abdominal pain; K57.30 Diverticulosis of large intestine without perforation or abscess without bleeding
CPT/HCPCS: 43248; 45380; 43250; 88305; C1889; C1769; J2405

== ENCOUNTER → 2025-02-16 | Outpatient (CLI) | payer MEDICARE, OTHER, SELFPAY ==
[2025-02-16 15:15] LABS: Absolute Lymphocyte Count 0.71 X10^3/uL (0.83-4.51); Absolute Neutrophil Count 6.7 X10^3/uL (2.0-7.7); Basophil# 0.02 X10^3/uL; Basophil% 0.3 % (0-1); Eosinophil# 0.03 X10^3/uL; Eosinophils% 0.4 % (0-5); Hematocrit 35.7 % (37-47); Hemoglobin 10.8 g/dL (12.0-15.0); Lymphocyte # 0.71 X10^3/ul (0.83-4.51); Mean Corp Hgb Conc 30.3 g/dL (32-36); Mean Corpuscular Hgb 26.3 pg (27.0-32.0); Mean Corpuscular Volume 87.1 fL (81-99); Mean Platelet Vol. 10.8 fl (6.2-12.0); Monocyte# 0.43 X10^3/uL; Monocyte% 5.4 % (0-10); NRBC Flagged by Analyzer 0 % (0-5); Neutrophil % 84.4 % (47-70); POSITIVE MORPHOLOGY YES; Platelet Count 209 K/mm3 (150-450); RBC Distribution Width CV 21.4 % (11.6-14.6); RBC Distribution Width SD 65.6 fl (35.1-43.9); White Blood Count 7.9 K/mm3 (4.4-11.0)
[2025-02-16 15:16] LABS: Differential Indicated SCAN CRITERIA MET
[2025-02-16 20:03] LABS: Anisocytosis 2+; Differential Comment SCANNED; Microcytosis 2+; Ovalocyte RARE; Polychromasia RARE
== END | disposition home or self-care (01) ==
LOC: MTLAB 12:44
PROVIDERS: PCP Family Medicine; Referring Provider Family Medicine; Visit Provider Family Medicine
DX: D64.9 Anemia, unspecified (principal)
CPT/HCPCS: 36415; 85025

== ENCOUNTER → 2025-02-19 | Outpatient (CLI) | payer MEDICARE, OTHER, SELFPAY ==
[2025-02-19 09:15] LABS: Bacteria 0 SEEN /hpf (None Seen); Mucous, Urine 0 SEEN /hpf (<or=2+); Red Blood Cells-Urine 0 SEEN /hpf (0-5)
[2025-02-19 10:52] LABS: Color, Urine Yellow (Yellow); Glucose, Dipstick Normal (Normal); Ketone-Dipstick Negative (Negative); Leukocyte Esterase-Dipstick 100 /ul (Negative); Nitrite-Dipstick Negative (Negative); Occult Blood-Urine Negative /ul (Negative); Protein-Dipstick Negative (Negative); Specific Gravity, Urine 1.015 (1.002-1.030); Urine Bilirubin Dipstick Negative (Negative); Urine Clarity Clear (Clear); Urine Urobilinogen Normal (Normal)
[2025-02-19 11:03] LABS: Squamous Epithelial Cells - UA 0-5 SEEN /hpf (5-10); White Blood Cells 0-5 SEEN /hpf (0-5)
[2025-02-19 11:33] LABS: ALB/GLOB Ratio 1.7 RATIO (0.9-2.4); AST(SGOT) 17 U/L (<=31); Alanine Aminotransfer ALT/SGPT 19 U/L (<=34); Alkaline Phosphatase 86 U/L (35-104); Anion Gap 12 (5-15); BUN 12 mg/dL (4-19); BUN/Creat Ratio 13.8 RATIO (10-20); Calcium,Total 9.3 mg/dL (7.6-11.0); Carbon Dioxide 24.4 mmol/L (21.0-32.0); Chloride 105 mmol/L (98-108); Cholesterol 150 mg/dL (<=200); Creatinine, Serum 0.86 mg/dL (0.70-1.20); EST Glomerular Filtration Rate 70 (>60); Globulin 2.4 g/dL (2.2-4.2); Glucose 106 mg/dL (70-99); High Density Lipoprotein 47 mg/dL; Low Density Lipoprotein Calc. 48 mg/dL; Potassium 3.7 mmol/L (3.3-5.1); Protein, Total 6.4 g/dL (5.9-8.4); Sodium Level 141 mmol/L (133-145); Total Bilirubin 0.33 mg/dL (0.00-1.30); Triglycerides 273 mg/dL; Very Low Density Lipoprotein 55 mg/dL (5-40); Vitamin D,25 Hydroxy 66.4 ng/mL (30-100); cholesterol:hdl ratio screen 3.16
[2025-02-23 12:17] LABS: Hemoglobin A1c 5.5 % (<=5.6)
== END | disposition home or self-care (01) ==
LOC: MFPLAB 09:09
PROVIDERS: PCP Family Medicine; Referring Provider Family Medicine; Visit Provider Family Medicine
DX: E78.5 Hyperlipidemia, unspecified (principal); E55.9 Vitamin D deficiency, unspecified; R73.09 Other abnormal glucose
CPT/HCPCS: 36415; 80053; 80061; 81001; 82306; 83036

== ENCOUNTER 2025-02-24 09:35 | Observation (INO) | payer MEDICARE, OTHER, SELFPAY ==
[2025-02-24] VITALS (12 sets, daily range): BP systolic 114–183; BP diastolic 60–92; PULSE 61–91; RESP 12–22; TEMP 36–37; O2SAT 94–99; BMI 29.7
--- NOTE | 2025-02-24 10:08 | ED.VIS.CHEST ---
HPI History of Present Illness Chief Complaint: Chest Pain Narrative Narrative: 79-year-old female past medical history of melanoma, hypertension, DVTs, on Eliquis presents with left-sided pectoral chest pain that began this morning around 830, approximately an hour and a half ago. She states that she had just gotten out of the shower and was standing at the vanity when she developed sharp stabbing pain under her left breast. It also feels as if she has pressure sensation on the left side radiating to her left jaw. She denies any exacerbating or alleviating factors, but states it is getting worse. She was traveling up to [place] today for a dentist appointment, but had to have her turn the car around because of increasing left-sided chest pressure. She denies any nausea or vomiting, no recent fevers or chills, no cough. While she has occasional leg swelling, it is not increased. She states she has never had problems with chest pain in the past. While she takes the antihypertensives in the morning and evening, she already took her morning dose. [facility] Medical History History of Holter monitoring Hx of malignant carcinoid tumor Weakness Chronic pain Obesity (BMI 30.0-34.9) History of syncope Generalized abdominal pain Wears glasses Arthritis Neuropathy History of pain when walking History of echocardiogram Cardiology follow-up encounter History of atrial fibrillation Syncopal episodes Metastatic melanoma Duodenal mass Post-menopausal History of steroid therapy Anemia History of immunosuppression therapy Seizures Adrenal insufficiency 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 Bilateral pulmonary embolism Pulmonary emboli Left leg DVT Anticoagulated Former smoker Mild cognitive impairment COVID-19 Polyneuropathy Essential hypertension GERD (gastroesophageal reflux disease) Hyperlipidemia Home Medications ?Medication ?Instructions ?Recorded ?Last Taken ?Type metoprolol succinate 50 mg 50 mg PO DAILY heart rate ##0 08/15/20 01/30/25 06:15 Rx tablet,extended release 24 hr atorvastatin 40 mg tablet 40 mg PO DAILY cholesterol 09/24/20 10/06/24 History acetaminophen 500 mg tablet 1,000 mg (2 x 500 mg) PO Q6H PRN 07/27/23 10/07/24 07:20 Rx PRN Pain Score 1-5 #0 tabs apixaban 5 mg tablet (Eliquis) 5 mg PO BID blood thinner 30 days 07/27/23 01/23/25 Rx #60 tabs pantoprazole 40 mg tablet,delayed 40 mg PO DAILY #30 tabs 08/29/23 10/06/24 Rx release melatonin 3 mg tablet 3 mg PO HS PRN sleep 10/18/23 Unknown History ondansetron HCl 8 mg tablet 8 mg PO Q8H PRN nausea and vomiting 11/02/23 Unknown History prednisone 5 mg tablet 5 mg PO DAILY #100 tabs 03/27/24 01/30/25 06:15 Rx tizanidine 4 mg capsule 4 mg PO Q8H PRN muscle spasticity 03/27/24 Unknown History amlodipine 5 mg tablet 5 mg PO DAILY 01/22/25 Unknown History azithromycin 250 mg tablet 250 mg PO DAILY PRN DENTAL WORK 01/22/25 Unknown History cholecalciferol (vitamin D3) 1,250 1,250 mcg PO QWEEK 01/22/25 Unknown History mcg (50,000 unit) capsule lisinopril 40 mg tablet 40 mg PO DAILY 01/22/25 Unknown History dicyclomine 10 mg capsule 10 mg PO BID PRN abdominal pain 01/28/25 Unknown History diphenoxylate-atropine 2.5 1 tab PO QHS PRN diarrhea 01/28/25 Unknown History mg-0.025 mg tablet (Lomotil) ibuprofen 200 mg tablet (Advil) 200 mg PO TID PRN pain 01/28/25 Unknown History Allergy/AdvReac Type Severity Reaction Status Date / Time Sulfa (Sulfonamide Allergy Severe Swelling Verified 02/24/25 09:36 Antibiotics) amoxicillin AdvReac Severe Diarrhea Verified 02/24/25 09:36 sulfamethoxazole (From AdvReac Severe Anaphylaxis Verified 02/24/25 09:36 Bactrim) trimethoprim (From Bactrim) AdvReac Severe Swelling Verified 02/24/25 09:36 Family History Brother Alcoholism Asthma Myocardial infarction, Onset Age: 52 Seizures Skin cancer Sister CVA (cerebral vascular accident) Asthma Grandfather Asthma Father Myocardial infarction, Onset Age: 46 Had at age 46 & 62 Mother Myocardial infarction, Onset Age: 82 Surgical History Hx of surgical procedure History of total left hip replacement History of amputation of finger History of right hip replacement History of cataract surgery History of eye surgery Social History household members: spouse Smoking Status: Former smoker Tobacco: How many years used: 30 how long ago did patient quit smokin years ago second hand exposure: No alcohol intake: current alcohol intake frequency: holidays/special occasions only Alcohol type: wine substance use type: does not use amy/congregational: None seatbelt use: always ROS ROS ED ROS Narrative Review of systems positive for left-sided chest pain and pressure both sharp and stabbing and pressure-like. Radiates to jaw on the left. No fevers or chills, no cough, no nausea or vomiting, no diaphoresis. No increased leg swelling. No exacerbating or alleviating factors. EXAM Physical Exam Narrative Exam Narrative: Afebrile. Vital signs noted. Nontoxic-appearing. Cardiovascular examination reveals regular rate and rhythm. Lungs are clear to auscultation bilaterally. Abdomen is soft, nontender, with positive bowel sounds. No guarding or rebound. No appreciable pitting pedal edema bilaterally. Neurological examination nonfocal, nonlateralizing. Const Vital Signs: 02/24/25 09:36 02/24/25 09:40 02/24/25 10:07 Temperature 98.6 F Temperature Source Oral Pulse Rate 88 Respiratory Rate 18 Respiratory Effort Normal Blood Pressure 183/92 H Blood Pressure Mean 122 Pulse Ox 99 Oxygen Delivery Method Room Air Room Air 02/24/25 10:17 02/24/25 10:25 02/24/25 10:30 Temperature Temperature Source Pulse Rate 85 91 87 Respiratory Rate 12 Respiratory Effort Blood Pressure 168/74 H 154/90 H 138/83 H Blood Pressure Mean 101 Pulse Ox 95 Oxygen Delivery Method Room Air 02/24/25 11:15 02/24/25 12:00 02/24/25 12:24 Temperature Temperature Source Pulse Rate 69 61 67 Respiratory Rate 13 14 22 H Respiratory Effort Blood Pressure 114/72 133/68 H 139/68 H Blood Pressure Mean 86 89 91 Pulse Ox 94 97 95 Oxygen Delivery Method Room Air Room Air Room Air 02/24/25 13:00 Temperature Temperature Source Pulse Rate 65 Respiratory Rate 14 Respiratory Effort Blood Pressure 140/74 H Blood Pressure Mean 96 Pulse Ox 98 Oxygen Delivery Method Room Air MDM MDM MDM Narrative Medical decision making narrative: Differential diagnosis includes but not limited to ACS versus pulmonary embolism versus pneumonia versus pneumothorax. I have lower pulmonary embolism as the patient is already on Eliquis. Comprehensive workup was pursued. She does have elevated blood pressure so she will be given nitroglycerin. EKG was obtained and interpreted by myself independently as normal sinus rhythm at 83 bpm without ectopy or acute ST changes. No STEMI. Patient administered aspirin and nitroglycerin. I reviewed her laboratory work and she has normal white count of 6.7 with hemoglobin 10.9, hematocrit 35.3, platelet count 181. Electrolyte panel is grossly unremarkable with a BUN of 18 and creatinine 0.82, glucose slightly elevated at 124 but normal anion gap of 13. Magnesium normal at 2.0. Initial high-sensitivity troponin is elevated at 30. Previous was 11 but this was a different assay. Repeat troponin at 2 hours is 35. Chest x-ray in 1 view interpreted by myself independently shows no evidence of pneumothorax or pneumonia, no acute process. I reviewed the radiology report which confirms my independent interpretation. Upon repeat examination, she is feeling improved but states that she still has chest soreness. Her blood pressure has normalized to the 120s systolically. At this point in time, given her continued chest pain, and not having had a stress test previously recently, I discussed patient with Dr. Eckert for observation on the PCU. Disposition is assigned observation. Patient is in stable condition. History & Record Review Discussion w/independent historian: Patient and Family Additional record(s) reviewed:: Prior ED visit Lab Data Attestation: I reviewed the patient's lab results. Labs: Laboratory Results - last 24 hr 02/24/25 02/24/25 09:48 12:12 WBC 6.7 RBC 4.11 L Hgb 10.9 L Hct 35.3 L MCV 85.9 MCH 26.5 L MCHC 30.9 L RDW Std Deviation 65.5 H RDW Coeff of Lynn 21.2 H Plt Count 181 MPV 9.5 Immature Gran % (Auto) 0.600 Neut % (Auto) 71.4 H Lymph % (Auto) 17.6 L Towns % (Auto) 9.3 Eos % (Auto) 1.0 Baso % (Auto) 0.1 Absolute Neuts (auto) 4.8 Absolute Lymphs (auto) 1.18 Nucleated RBC % 0 Platelet Estimate A Anisocytosis 1+ Macrocytosis 1+ Sodium 139 Potassium 3.6 Chloride 104 Carbon Dioxide 22.5 Anion Gap 13 BUN 18 Creatinine 0.82 Estim Creat Clear Calc 62.53 Est GFR (MDRD) Non-Af 74 BUN/Creatinine Ratio 21.9 H Glucose 124 H Calcium 9.1 Magnesium 2.0 Troponin T High Sens 30 H D Troponin T Hi Sens 2 Hr 35 H Radiography Diagnostic Testing: Clinical Impression(s) from Imaging Studies Chest X-Ray 02/24/25 10:15 IMPRESSION: No acute pulmonary process Reading Location: [id number] Discharge Plan Dx/Rx/DC Orders Clinical Impression: Chest pain, Hypertension, Elevated troponin, Chronic anticoagulation Disposition Disposition: Acute Care Hospital [facility]
--- NOTE | 2025-02-24 10:15 | RAD_ITS ---
PROCEDURE: CHEST 1 VIEW (PORTABLE) 02/24/2025 REASON FOR EXAM: CHEST PAIN TECHNIQUE: Frontal view of the chest. COMPARISON: 01/22/2025 FINDINGS: Hardware: EKG leads overlie the chest Heart: The heart size is normal. Lungs: The lungs are clear. Bones: Degenerative changes are identified within the thoracic spine. Other: RAD/Chest 1 View (Portable) IMPRESSION: No acute pulmonary process Reading Location: [id number]
--- NOTE | 2025-02-24 10:15 | EKG12_ITS ---
Test Reason : CHEST PAIN Blood Pressure : */* mmHG Vent. Rate : 83 BPM Atrial Rate : 83 BPM P-R Int : 174 ms QRS Dur : 80 ms QT Int : 364 ms P-R-T Axes : 51 51 52 degrees QTcB Int : 427 ms Normal sinus rhythm Normal ECG Confirmed by AMAAD HECTOR, JERROD ([id number]), editorial clerk GAVINO ZEPEDA ([id number]) on 02/25/2025 1:43:09 PM Referred By: Confirmed By: JERROD YBARRA MD
[2025-02-24] MEDS: Nitroglycerin SL (ED/IMG/CATH) 0.4 MG TABLET SL ×2 (10:17→10:25)
[2025-02-24 10:23] LABS: Hematocrit 35.3 % (37-47); Hemoglobin 10.9 g/dL (12.0-15.0); Immature Granulocytes Count 0.040 X10^3/uL (0.0-0.0); Mean Corp Hgb Conc 30.9 g/dL (32-36); Mean Corpuscular Volume 85.9 fL (81-99); Mean Platelet Vol. 9.5 fl (6.2-12.0); NRBC Flagged by Analyzer 0 % (0-5); POSITIVE MORPHOLOGY YES; Platelet Count 181 K/mm3 (150-450); RBC Distribution Width CV 21.2 % (11.6-14.6); RBC Distribution Width SD 65.5 fl (35.1-43.9); Red Blood Count 4.11 M/mm3 (4.2-5.4); White Blood Count 6.7 K/mm3 (4.4-11.0)
[2025-02-24 10:36] LABS: Differential Indicated SCAN CRITERIA MET
[2025-02-24 11:01] LABS: Anion Gap 13 (5-15); BUN 18 mg/dL (4-19); BUN/Creat Ratio 21.9 RATIO (10-20); Calcium,Total 9.1 mg/dL (7.6-11.0); Carbon Dioxide 22.5 mmol/L (21.0-32.0); Chloride 104 mmol/L (98-108); Estimated Creatinine Clearance 62.53 ml/min (50-250); Glucose 124 mg/dL (70-99); Magnesium 2.0 mg/dL (1.5-2.2); Potassium 3.6 mmol/L (3.3-5.1); Troponin T High Sensitivity 30 ng/L (<=14)
[2025-02-24 12:32] LABS: Anisocytosis 1+; Macrocytosis 1+
[2025-02-24 13:13] LABS: Troponin T High Sens 2 HR 35 ng/L (<=14)
--- NOTE | 2025-02-24 13:38 | PCM.HP.STD ---
[facility] - General General Date of Admission: 02/24/25 Date of Service: 02/24/25 Chief Complaint: Chest pain HPI Narrative MISTI HUERTA, is a 79 F who presented to [facility] ED on 02/24/2025 with chest pain. History is significant for DVT/PE on Eliquis, melanoma in remission, adrenal insufficiency on chronic low-dose prednisone and iron deficiency anemia. She was recently hospitalized here in late December after syncopal episode. She was found to have acute on chronic anemia that on further testing was consistent with mixed iron deficiency anemia and anemia of chronic disease. She underwent outpatient EGD and colonoscopy on 01/[address] Antonio with no acute bleed noted and no other concerning findings. Her Eliquis was restarted after no scopes and she has been taking it as prescribed. Today she had chest pain starting around 830 this morning. Pain was a sharp stabbing pain on the left breast with pressure sensation radiating to the left jaw. She was at rest when the pain started. She had a dentist appointment scheduled and started to drive there with her but the pain became worse, so she came to the ED for further evaluation. In the ED she was initially hypertensive to the 160s to 170s systolic but otherwise hemodynamically stable on room air. CBC and BMP were benign; notably hemoglobin was 10.9 and stable from hemoglobin from lab draw on 02/19. Chest x-ray was unremarkable. EKG showed normal sinus rhythm with no ischemic changes. However, troponins were mildly elevated with trend 30 > 35 > 33. Given chest pain and need for ACS rule out, hospitalist was contacted for admission. I saw the patient at bedside in the ED, was present. Patient was sitting back comfortably in bed, conversing normally, in no acute distress. She reported only mild chest pressure currently, much improved from earlier today. Did state that she felt like the nitro she was given in the ED helped her chest pain. Denies any prior history of chest pain like this. Denies any recent strenuous physical activity. Notably chest pressure was reproducible on palpation to the left pectoral area on exam. She denies any other acute concerns currently. Will be admitted for further management. [facility] Medical History History of Holter monitoring Hx of malignant carcinoid tumor Weakness Chronic pain Obesity (BMI 30.0-34.9) History of syncope Generalized abdominal pain Wears glasses Arthritis Neuropathy History of pain when walking History of echocardiogram Cardiology follow-up encounter History of atrial fibrillation Syncopal episodes Metastatic melanoma Duodenal mass Post-menopausal History of steroid therapy Anemia History of immunosuppression therapy Seizures Adrenal insufficiency 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 Bilateral pulmonary embolism Pulmonary emboli Left leg DVT Anticoagulated Former smoker Mild cognitive impairment COVID-19 Polyneuropathy Essential hypertension GERD (gastroesophageal reflux disease) Hyperlipidemia Home Medications ?Medication ?Instructions ?Recorded ?Last Taken ?Type metoprolol succinate 50 mg 50 mg PO DAILY heart rate ##0 08/15/20 02/24/25 Rx tablet,extended release 24 hr atorvastatin 40 mg tablet 40 mg PO DAILY cholesterol 09/24/20 02/23/25 History acetaminophen 500 mg tablet 1,000 mg (2 x 500 mg) PO Q6H PRN 07/27/23 10/07/24 07:20 Rx PRN Pain Score 1-5 #0 tabs apixaban 5 mg tablet (Eliquis) 5 mg PO BID blood thinner 30 days 07/27/23 02/24/25 Rx #60 tabs pantoprazole 40 mg tablet,delayed 40 mg PO DAILY #30 tabs 08/29/23 02/24/25 Rx release melatonin 3 mg tablet 3 mg PO HS PRN sleep 10/18/23 02/23/25 History ondansetron HCl 8 mg tablet 8 mg PO Q8H PRN nausea and vomiting 11/02/23 Unknown History prednisone 5 mg tablet 5 mg PO DAILY #100 tabs 03/27/24 02/24/25 Rx tizanidine 4 mg capsule 4 mg PO Q8H PRN muscle spasticity 03/27/24 Unknown History amlodipine 5 mg tablet 5 mg PO DAILY 01/22/25 Unknown History azithromycin 250 mg tablet 250 mg PO DAILY PRN DENTAL WORK 01/22/25 02/24/25 History cholecalciferol (vitamin D3) 1,250 1,250 mcg PO QWEEK 01/22/25 02/24/25 History mcg (50,000 unit) capsule lisinopril 40 mg tablet 20 mg PO DAILY 01/22/25 02/23/25 History dicyclomine 10 mg capsule 10 mg PO BID PRN abdominal pain 01/28/25 Unknown History diphenoxylate-atropine 2.5 1 tab PO QHS PRN diarrhea 01/28/25 Unknown History mg-0.025 mg tablet (Lomotil) ibuprofen 200 mg tablet (Advil) 200 mg PO TID PRN pain 01/28/25 Unknown History Allergy/AdvReac Type Severity Reaction Status Date / Time Sulfa (Sulfonamide Allergy Severe Swelling Verified 02/24/25 09:36 Antibiotics) amoxicillin AdvReac Severe Diarrhea Verified 02/24/25 09:36 sulfamethoxazole (From AdvReac Severe Anaphylaxis Verified 02/24/25 09:36 Bactrim) trimethoprim (From Bactrim) AdvReac Severe Swelling Verified 02/24/25 09:36 Family History Brother Alcoholism Asthma Myocardial infarction, Onset Age: 52 Seizures Skin cancer Sister CVA (cerebral vascular accident) Asthma Grandfather Asthma Father Myocardial infarction, Onset Age: 46 Had at age 46 & 62 Mother Myocardial infarction, Onset Age: 82 Surgical History Hx of surgical procedure History of total left hip replacement History of amputation of finger History of right hip replacement History of cataract surgery History of eye surgery Social History household members: spouse Smoking Status: Former smoker Tobacco: How many years used: 30 how long ago did patient quit smokin years ago second hand exposure: No alcohol intake: current alcohol intake frequency: holidays/special occasions only Alcohol type: wine substance use type: does not use amy/yarsani: None seatbelt use: always ROS Constitutional Constitutional: Denies chills, fatigue, fever(s) or weakness Eyes Eyes: Denies change in vision Cardiovascular Cardiovascular: Reports chest pain; Denies dyspnea on exertion, edema, lightheadedness, orthopnea, palpitations or rapid heart rate Respiratory/Chest Respiratory/Chest: Denies cough or shortness of breath at rest Gastrointestinal Gastrointestinal: Denies abdominal pain, constipation, diarrhea, nausea or vomiting Genitourinary Genitourinary: Denies dysuria Musculoskeletal Musculoskeletal: Denies arthralgias or myalgias Neurologic Neurologic: Denies dizziness, focal weakness or headache(s) Vital Signs Vital Signs Vital Signs: 02/24/25 09:36 02/24/25 09:40 02/24/25 10:07 Temperature 98.6 F Temperature Source Oral Pulse Rate 88 Respiratory Rate 18 Respiratory Effort Normal Blood Pressure 183/92 H Blood Pressure Mean 122 Pulse Ox 99 Oxygen Delivery Method Room Air Room Air 02/24/25 10:17 02/24/25 10:25 02/24/25 10:30 Temperature Temperature Source Pulse Rate 85 91 87 Respiratory Rate 12 Respiratory Effort Blood Pressure 168/74 H 154/90 H 138/83 H Blood Pressure Mean 101 Pulse Ox 95 Oxygen Delivery Method Room Air 02/24/25 11:15 02/24/25 12:00 02/24/25 12:24 Temperature Temperature Source Pulse Rate 69 61 67 Respiratory Rate 13 14 22 H Respiratory Effort Blood Pressure 114/72 133/68 H 139/68 H Blood Pressure Mean 86 89 91 Pulse Ox 94 97 95 Oxygen Delivery Method Room Air Room Air Room Air 02/24/25 13:00 Temperature Temperature Source Pulse Rate 65 Respiratory Rate 14 Respiratory Effort Blood Pressure 140/74 H Blood Pressure Mean 96 Pulse Ox 98 Oxygen Delivery Method Room Air Weight Weight: 83.4 kg Body Mass Index (BMI) 29.7 Physical Exam Const alert, oriented x3 and no apparent distress Constitutional Narrative: Pleasant elderly female, class I obesity, good energy level, sitting back comfortably in bed, conversing normally, in no acute distress. General Appearance: cooperative and comfortable HEENT normocephalic, head/scalp atraumatic, hearing grossly normal bilaterally, nasal mucous membranes and turbinates normal and moist oral mucous membranes Eyes PERRL, EOMs intact bilaterally and conjunctivae normal Neck full ROM Chest inspection of chest normal Resp normal respiratory effort, normal air movement, no use of accessory muscles and clear to auscultation bilaterally Cardio regular rate, regular rhythm, no murmurs and peripheral pulses 2+ throughout GI normal to inspection, nondistended, normoactive bowel sounds, soft to palpation, non-tender and non-distended Back/Spine normal ROM Extremity normal to inspection, full ROM and no pedal edema Skin no rashes or lesions noted Psych mental status grossly normal Results Lab / Micro Data 02/24/25 09:48 02/24/25 09:48 Labs: Laboratory Results - last 24 hr 02/24/25 09:48: WBC 6.7, RBC 4.11 L, Hgb 10.9 L, Hct 35.3 L, MCV 85.9, MCH 26.5 L, MCHC 30.9 L, RDW Std Deviation 65.5 H, RDW Coeff of Lynn 21.2 H, Plt Count 181, MPV 9.5, Immature Gran % (Auto) 0.600, Neut % (Auto) 71.4 H, Lymph % (Auto) 17.6 L, Drew % (Auto) 9.3, Eos % (Auto) 1.0, Baso % (Auto) 0.1, Absolute Neuts (auto) 4.8, Absolute Lymphs (auto) 1.18, Nucleated RBC % 0, Platelet Estimate A, Anisocytosis 1+, Macrocytosis 1+, Sodium 139, Potassium 3.6, Chloride 104, Carbon Dioxide 22.5, Anion Gap 13, BUN 18, Creatinine 0.82, Estim Creat Clear Calc 62.53, Est GFR (MDRD) Non-Af 74, BUN/Creatinine Ratio 21.9 H, Glucose 124 H, Calcium 9.1, Magnesium 2.0, Troponin T High Sens 30 H D 02/24/25 12:12: Troponin T Hi Sens 2 Hr 35 H Imaging Radiology Impression Chest X-Ray 02/24/25 10:15 IMPRESSION: No acute pulmonary process Reading Location: [id number] Assessment & Plan Assessment/Plan (1) Chest pain: (2) Elevated troponin: PLAN: Plan Patient is a 79-year-old female who presented [facility] ED on 02/24/2025 with chest pain. 1. Chest pain with mildly elevated troponins, ACS rule out ? Admit under observation status to PCU. Presented with reported left-sided chest pain radiating to the jaw that started at rest and improved with nitro in the ED. However, only mildly elevated troponins remaining stable, troponin trend 30 > 35 > 33. EKG with NSR and no ischemic changes. Chest x-ray unremarkable. Hemodynamically stable on room air. Notably had echo done on 01/22 for syncope workup during previous admission that showed EF 55 to 60%, no other concerning findings. Lipid panel on 02/19 showed total cholesterol 150, LDL 48, HDL 47. A1c 5.5% on 02/19. Will obtain nuclear stress test tomorrow morning for further evaluation. N.p.o. at midnight and will hold home beta-torie in the morning. 2. History of VTE on Eliquis, hypertension, hyperlipidemia ? Hypertensive to the 160s to 170s on arrival to the ED but improved to the 130s without intervention. Continue home Eliquis, high intensity statin and lisinopril. Will hold home Toprol for stress test tomorrow morning, then will be okay to resume. 3. Chronic normocytic anemia ? Hemoglobin 10.9, MCV 85 on admit. Recent admit in late December with acute on chronic anemia to the 7-8 range noted. 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 Stable, follow-up a.m. CBC. 4. Chronic adrenal insufficiency ? Stable. Continue home prednisone 5 mg daily. 5. GERD ? Continue home PPI. 6. History of melanoma ? In remission. No inpatient needs, continue outpatient follow-up. DVT prophylaxis: Not indicated, on Eliquis CODE STATUS: Full code, verified Expected disposition: Home, 1 to 2 days Total clinical time spent by myself addressing the patient's medical issues, reviewing all the data, and collaborating with patient's care team: 75 minutes. Charges/Coding Visit Charges Inpatient E&M: 42171 Init Hosp L3
[2025-02-24 15:09] LABS: Troponin T High Sens 4 HR 33 ng/L (<=14)
[2025-02-24] MEDS: APIXABAN 5 MG TABLET PO (21:24)
[2025-02-25 03:20] VITALS: BP 146/61; PULSE 72; RESP 18; TEMP 36.4; O2SAT 96
[2025-02-25 05:32] VITALS: BP 160/68; PULSE 78; RESP 18; TEMP 36; O2SAT 98
--- NOTE | 2025-02-25 05:55 | EKG12_ITS ---
Test Reason : AM EKG Blood Pressure : */* mmHG Vent. Rate : 73 BPM Atrial Rate : 73 BPM P-R Int : 202 ms QRS Dur : 82 ms QT Int : 386 ms P-R-T Axes : 62 53 72 degrees QTcB Int : 425 ms Normal sinus rhythm Normal ECG When compared with ECG of 24-Feb-2025 09:40, MANUAL COMPARISON REQUIRED DATA IS UNCONFIRMED Confirmed by AMADA HECTOR, JERROD ([id number]), news editor GAVINO ZEPEDA ([id number]) on 02/25/2025 1:53:19 PM Referred By: Confirmed By: JERROD YBARRA MD
[2025-02-25 06:04] LABS: Hematocrit 32.9 % (37-47); Hemoglobin 10.1 g/dL (12.0-15.0); Mean Corp Hgb Conc 30.7 g/dL (32-36); Mean Corpuscular Volume 85.9 fL (81-99); Mean Platelet Vol. 9.9 fl (6.2-12.0); POSITIVE MORPHOLOGY YES; Platelet Count 176 K/mm3 (150-450); RBC Distribution Width CV 21.4 % (11.6-14.6); RBC Distribution Width SD 66.5 fl (35.1-43.9); Red Blood Count 3.83 M/mm3 (4.2-5.4); White Blood Count 5.3 K/mm3 (4.4-11.0)
[2025-02-25 06:14] LABS: Anion Gap 12 (5-15); BUN 16 mg/dL (4-19); BUN/Creat Ratio 19.4 RATIO (10-20); Calcium,Total 9.1 mg/dL (7.6-11.0); Carbon Dioxide 25.1 mmol/L (21.0-32.0); Chloride 103 mmol/L (98-108); Estimated Creatinine Clearance 62.17 ml/min (50-250); Glucose 88 mg/dL (70-99); Potassium 3.7 mmol/L (3.3-5.1)
[2025-02-25 06:36] LABS: Scan Indicated on CBC? Y/N YES- FLAGS NOTED
[2025-02-25 06:59] VITALS: O2SAT 96
--- NOTE | 2025-02-25 08:40 | PCM.PN.HOSP ---
Reason for Visit Reason for Visit: Diagnoses Chest pain, unspecified (02/24/25) Other specified abnormal findings of blood chemistry (02/24/25) Objective Data Objective Data Vital Signs: Vital Signs Temp Pulse Resp BP Pulse Ox O2 Del Method O2 Flow Rate 96.8 F L 78 18 160/68 H 98 Room Air 2 02/25/25 05:32 02/25/25 05:32 02/25/25 05:32 02/25/25 05:32 02/25/25 05:32 02/25/25 05:32 02/25/25 03:20 Oxygen Flow Rate (L/min) 2 Oxygen Delivery Method Room Air Weight: 186 lb 4.65 oz Body Mass Index (BMI) 30.0 Intake & Output: Intake and Output for Last 24 Hours 02/23/25 02/24/25 02/25/25 23:59 23:59 23:59 Intake Total 360 / 360 Balance 360 / 360 Lab / Micro Data 02/25/25 05:15 02/25/25 05:15 Labs: Laboratory Results - last 24 hr 02/24/25 09:48: WBC 6.7, RBC 4.11 L, Hgb 10.9 L, Hct 35.3 L, MCV 85.9, MCH 26.5 L, MCHC 30.9 L, RDW Std Deviation 65.5 H, RDW Coeff of Lynn 21.2 H, Plt Count 181, MPV 9.5, Immature Gran % (Auto) 0.600, Neut % (Auto) 71.4 H, Lymph % (Auto) 17.6 L, [place] % (Auto) 9.3, Eos % (Auto) 1.0, Baso % (Auto) 0.1, Absolute Neuts (auto) 4.8, Absolute Lymphs (auto) 1.18, Nucleated RBC % 0, Platelet Estimate A, Anisocytosis 1+, Macrocytosis 1+, Sodium 139, Potassium 3.6, Chloride 104, Carbon Dioxide 22.5, Anion Gap 13, BUN 18, Creatinine 0.82, Estim Creat Clear Calc 62.53, Est GFR (MDRD) Non-Af 74, BUN/Creatinine Ratio 21.9 H, Glucose 124 H, Calcium 9.1, Magnesium 2.0, Troponin T High Sens 30 H D 02/24/25 12:12: Troponin T Hi Sens 2 Hr 35 H 02/24/25 14:20: Troponin T Hi Sens 4Hr 33 H 02/25/25 05:15: WBC 5.3, RBC 3.83 L, Hgb 10.1 L, Hct 32.9 L, MCV 85.9, MCH 26.4 L, MCHC 30.7 L, RDW Std Deviation 66.5 H, RDW Coeff of Lynn 21.4 H, Plt Count 176, MPV 9.9, Sodium 140, Potassium 3.7, Chloride 103, Carbon Dioxide 25.1, Anion Gap 12, BUN 16, Creatinine 0.83, Estim Creat Clear Calc 62.17, Est GFR (MDRD) Non-Af 72, BUN/Creatinine Ratio 19.4, Glucose 88, Calcium 9.1 Radiography Diagnostic Testing: Radiology Impression Chest X-Ray 02/24/25 10:15 IMPRESSION: No acute pulmonary process Reading Location: [id number] Assessment & Plan Assessment/Plan (1) Chest pain: (2) Elevated troponin: PLAN: Plan Patient is a 79-year-old female who presented [facility] ED on 02/24/2025 with chest pain. 1. Chest pain with mildly elevated troponins, ACS rule out ? Admit under observation status to PCU. Presented with reported left-sided chest pain radiating to the jaw that started at rest and improved with nitro in the ED. However, only mildly elevated troponins remaining stable, troponin trend 30 > 35 > 33. EKG with NSR and no ischemic changes. Chest x-ray unremarkable. Hemodynamically stable on room air. Notably had echo done on 01/22 for syncope workup during previous admission that showed EF 55 to 60%, no other concerning findings. Lipid panel on 02/19 showed total cholesterol 150, LDL 48, HDL 47. A1c 5.5% on 02/19. Will obtain nuclear stress test tomorrow morning for further evaluation. N.p.o. at midnight and will hold home beta-torie in the morning. Team [employer] for with age more than 65, CAD risk, positive cardiac marker and angina. 2. History of VTE on Eliquis, hypertension, hyperlipidemia ? Hypertensive to the 160s to 170s on arrival to the ED but improved to the 130s without intervention. Continue home Eliquis, high intensity statin and lisinopril. Will hold home Toprol for stress test tomorrow morning, then will be okay to resume. 3. Chronic normocytic anemia ? Hemoglobin 10.9, MCV 85 on admit. Recent admit in late December with acute on chronic anemia to the 7-8 range noted. 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 Stable, follow-up a.m. CBC. 4. Chronic adrenal insufficiency ? Stable. Continue home prednisone 5 mg daily. 5. GERD ? Continue home PPI. 6. History of melanoma ? In remission. No inpatient needs, continue outpatient follow-up. DVT prophylaxis: Not indicated, on Eliquis CODE STATUS: Full code, verified Expected disposition: Home, 1 to 2 days Total clinical time spent by myself addressing the patient's medical issues, reviewing all the data, and collaborating with patient's care team: 75 minutes.
[2025-02-25 10:00] VITALS: BP 160/68; PULSE 92; RESP 18; TEMP 36.8; O2SAT 99
[2025-02-25 10:15] VITALS: BP 160/68; PULSE 92
[2025-02-25] MEDS: Metoprolol(XL)Succ 50 MG Tablet PO (10:15)
--- NOTE | 2025-02-25 11:23 | DCINST_ITS ---
Discharge Instructions Diet Discharge Diet: 2000 mg Sodium Diet DC O2, CPAP, BIPAP needs Home O2 Discharge instructions: No Dressing / Incision Discharge Activity: Return to Normal Activity Weight Bearing Status: Weight bearing as tolerated Dressing / Incision Call your doctor if you observe: Fever of 101 or Higher, Coldness, Increased Pain, Numbness or Tingling, Change in Color, Inability to urinate, Inability to have a bowel movement, Shortness of breath, Dizziness, Fainting spells, Swelling in the ankles, Chest pain, Prolonged hiccupping, Increased palpitations (irregular heartbeat) and Calf discomfort Follow Up Care When: IN 2 WEEKS Test Results: Test results from this visit will be discussed in further detail at your follow- up appointment, if applicable. Discharge Plan Admission Admit Date/Time: 02/24/25 13:46 Primary Reason for Your Visit: Atypical chest pain Attending Provider: Naseem Rios Primary Care Provider: Gary Merrill Consulting Providers: Star Eckert Discharge Orders/Prescriptions Prescriptions: Continued atorvastatin 40 mg tablet 40 mg PO DAILY melatonin 3 mg tablet 3 mg PO HS PRN (Reason: sleep) tizanidine 4 mg capsule 4 mg PO Q8H PRN (Reason: muscle spasticity) prednisone 5 mg tablet 5 mg PO DAILY Qty: 100 3RF Patient Comments: TAKING 10 MG DAILY IF SICK Rx Instructions: double dose for fever/acute illness metoprolol succinate 50 MG tablet 50 mg PO DAILY Qty: 0 0RF Rx Instructions: Hold if heart rate less than 60/min acetaminophen 500 mg Tablet 1,000 mg PO Q6H PRN PRN (Reason: Pain Score 1-5) Qty: 0 0RF Eliquis 5 mg Tablet 5 mg PO BID 30 Days Qty: 60 0RF Patient Comments: HOLD 7 DAYS PRIOR TO PROCEDURE PER pantoprazole 40 mg Tablet,Delayed Release (Dr/Ec) 40 mg PO DAILY Qty: 30 0RF ondansetron HCl 8 mg tablet 8 mg PO Q8H PRN (Reason: nausea and vomiting) Patient Comments: take 1 tablet by mouth every 8 hours if needed for nausea and vomiting dicyclomine 10 mg capsule 10 mg PO BID PRN (Reason: abdominal pain) ibuprofen [Advil] 200 mg tablet 200 mg PO TID PRN (Reason: pain) diphenoxylate-atropine [Lomotil] 2.5-0.025 mg tablet 1 tab PO QHS PRN (Reason: diarrhea) azithromycin 250 mg tablet 250 mg PO DAILY PRN (Reason: DENTAL WORK) lisinopril 40 mg tablet 20 mg PO DAILY Patient Comments: changed from 40mg to20mg about a month ago cholecalciferol (vitamin D3) 1,250 mcg (50,000 unit) capsule 1,250 mcg PO QWEEK Patient Comments: SUNDAY @ 999 Changed amlodipine 5 mg tablet 10 mg PO DAILY 30 Days Qty: 0 0RF Referrals / Follow Up: Gary Merrill MD [Primary Care Provider] - Disposition Disposition (needs filled in before D/C Order can be placed): Home, Self Care
--- NOTE | 2025-02-25 13:26 | DS.PCM_ITS ---
Providers Date of Admission: 02/24/25 Date of Discharge: 02/25/25 Primary Care Physician: Dr. Gary Merrill MD Reason For Visit: chest pain Diagnosis Discharge Diagnosis (1) Chest pain: Status: Acute Code(s): R07.9 - Chest pain, unspecified (2) Elevated troponin: Status: Acute Code(s): R79.89 - Other specified abnormal findings of blood chemistry Plan Patient is a 79-year-old female who presented [facility] ED on 02/24/2025 with chest pain. 1. Chest pain with mildly elevated troponins, ACS rule out ? Admit under observation status to PCU. Presented with reported left-sided chest pain radiating to the jaw that started at rest and improved with nitro in the ED. However, only mildly elevated troponins remaining stable, troponin trend 30 > 35 > 33. EKG with NSR and no ischemic changes. Chest x-ray unremarkable. Hemodynamically stable on room air. Notably had echo done on 01/22 for syncope workup during previous admission that showed EF 55 to 60%, no other concerning findings. Lipid panel on 02/19 showed total cholesterol 150, LDL 48, HDL 47. A1c 5.5% on 02/19. Nuclear stress was done. It is reported negative with no reversible myocardial ischemia. ELAINA risk score 4; 1 each for with age more than 65, CAD risk, positive cardiac marker and angina. Echo 01/22/2025 Interpretation Summary The estimated ejection fraction is 55-60 %. Normal LV systolic function No significant valvular abnormality In comparison to previous echo no significant change noted. This was communicated with the patient and the . 2. History of VTE on Eliquis, hypertension, hyperlipidemia ? Hypertensive to the 160s to 170s on arrival to the ED but improved to the 130s without intervention. Continue home Eliquis, high intensity statin and lisinopril. Will hold home Toprol for stress test tomorrow morning, then will be okay to resume. 3. Chronic normocytic anemia ? Hemoglobin 10.9, MCV 85 on admit. Recent admit in late December with acute on chronic anemia to the 7-8 range noted. 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 Stable, follow-up a.m. CBC. 4. Chronic adrenal insufficiency ? Stable. Continue home prednisone 5 mg daily. 5. GERD ? Continue home PPI. 6. History of melanoma ? In remission. No inpatient needs, continue outpatient follow-up. DVT prophylaxis: Not indicated, on Eliquis CODE STATUS: Full code, verified Discharge medication reconciliation done. Discharge follow-up instructions completed. Discharge process discussed with the patient and all questions were answered to patient's satisfaction. Follow with PCP in 1 to 2 weeks Total time spent, exact 35 minutes on discharge meds reconciliation, examination, coordination of care with nurses and ancillary staff, review of imaging and blood test and discussion with the patient on follow-up instructions. Medications at Discharge Home Medications metoprolol succinate 50 mg tablet,extended release 24 hr 50 mg PO DAILY heart rate ##0 08/15/20 atorvastatin 40 mg tablet 40 mg PO DAILY cholesterol 09/24/20 acetaminophen 500 mg tablet 1,000 mg (2 x 500 mg) PO Q6H PRN PRN Pain Score 1-5 #0 tabs 07/27/23 apixaban 5 mg tablet (Eliquis) 5 mg PO BID blood thinner 30 days #60 tabs 07/27/23 pantoprazole 40 mg tablet,delayed release 40 mg PO DAILY #30 tabs 08/29/23 melatonin 3 mg tablet 3 mg PO HS PRN sleep 10/18/23 ondansetron HCl 8 mg tablet 8 mg PO Q8H PRN nausea and vomiting 11/02/23 prednisone 5 mg tablet 5 mg PO DAILY #100 tabs 03/27/24 tizanidine 4 mg capsule 4 mg PO Q8H PRN muscle spasticity 03/27/24 azithromycin 250 mg tablet 250 mg PO DAILY PRN DENTAL WORK 01/22/25 cholecalciferol (vitamin D3) 1,250 mcg (50,000 unit) capsule 1,250 mcg PO QWEEK 01/22/25 lisinopril 40 mg tablet 20 mg PO DAILY 01/22/25 dicyclomine 10 mg capsule 10 mg PO BID PRN abdominal pain 01/28/25 diphenoxylate-atropine 2.5 mg-0.025 mg tablet (Lomotil) 1 tab PO QHS PRN diarrhea 01/28/25 ibuprofen 200 mg tablet (Advil) 200 mg PO TID PRN pain 01/28/25 amlodipine 5 mg tablet 10 mg (2 x 5 mg) PO DAILY 30 days #0 tabs 02/25/25 Physical Exam Narrative Seen and examined Patient admitted yesterday with left inframammary pain with radiation to neck with nodules. It was nonexertional, not associated shortness of breath. 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 Currently in remission. Follows Dr. Ismael Palma Physical exam General: Alert, Oriented x3, Cooperative HEENT: Atraumatic, PERRLA, EOMI, Normocephalic. Oral: No Gingival or Mucosal Lesions/ Ulcerations Neck: Supple, No JVD, Negative Carotid Bruits Chest wall/Lungs: Air entry equal in bilateral lung bases. No crepitation/rhonchi Cardiovascular: Regular rate and rhythm, Normal S1,S2, No M/G/R Abdomen: Bowel Sounds Present, Soft, Non Tender, Non-Distended : No dysuria. No renal angle tenderness. No suprapubic tenderness. Extremities: No edema, Capillary Refill Less than 3 Seconds Skin: No rashes, No breakdown Musculoskeletal: Left index partial amputation no Tenderness to Palpation of Joints or Extremities Neurological: Cranial nerves II-XII grossly intact, DTR 2+/4. No acute focal neurological deficit. Psych/Mental Status: Normal Affect, Appropriate. Weight / BMI Weight Weight: 186 lb 4.65 oz Body Mass Index (BMI) 30.0 ABG / Lab / Microbiology Data 02/25/25 05:15 02/25/25 05:15 Laboratory: Laboratory Results - last 24 hr 02/24/25 14:20: Troponin T Hi Sens 4Hr 33 H 02/25/25 05:15: WBC 5.3, RBC 3.83 L, Hgb 10.1 L, Hct 32.9 L, MCV 85.9, MCH 26.4 L, MCHC 30.7 L, RDW Std Deviation 66.5 H, RDW Coeff of Lynn 21.4 H, Plt Count 176, MPV 9.9, Sodium 140, Potassium 3.7, Chloride 103, Carbon Dioxide 25.1, Anion Gap 12, BUN 16, Creatinine 0.83, Estim Creat Clear Calc 62.17, Est GFR (MDRD) Non-Af 72, BUN/Creatinine Ratio 19.4, Glucose 88, Calcium 9.1 D/C Instructions Discharge Diet: 2000 mg Sodium Diet Weight Bearing Status: Weight bearing as tolerated Call your doctor if you observe: Fever of 101 or Higher, Coldness, Increased Pain, Numbness or Tingling, Change in Color, Inability to urinate, Inability to have a bowel movement, Shortness of breath, Dizziness, Fainting spells, Swelling in the ankles, Chest pain, Prolonged hiccupping, Increased palpitations (irregular heartbeat) and Calf discomfort DC O2, CPAP, BIPAP Needs Home O2 Discharge instructions: No When: IN 2 WEEKS Meaningful Use Info Meaningful Use Meaningful Use Diagnoses (Choose all that apply): None applicable Ischemic Stroke Statin Dosing Therapy Reference: STATIN DOSE THERAPY REFERENCE: * Patients > 75 years receive moderate or high dose statin therapy. * Patients 75 years or YOUNGER should receive HIGH intensity statin dose unless contraindicated. You will be required to document reason for non-treatment if statin daily dose does not meet guidelines. HIGH DOSE STATIN THERAPY DAILY Atorvastatin > than or = to 40 mg Rosuvastatin > than or = to 20 mg Amlodipine + Atorvastatin > than or = to 2.5/40 mg Ezetimibe + Simvastatin 10/80 mg Simvastatin 80mg Discharge Plan Admission Admit Date/Time: 02/24/25 13:46 Primary Reason for Your Visit: Atypical chest pain Attending Provider: Naseem Rios Primary Care Provider: Gary Merrill Consulting Providers: Star Eckert Discharge Orders/Prescriptions Prescriptions: Continued atorvastatin 40 mg tablet 40 mg PO DAILY melatonin 3 mg tablet 3 mg PO HS PRN (Reason: sleep) tizanidine 4 mg capsule 4 mg PO Q8H PRN (Reason: muscle spasticity) prednisone 5 mg tablet 5 mg PO DAILY Qty: 100 3RF Patient Comments: TAKING 10 MG DAILY IF SICK Rx Instructions: double dose for fever/acute illness metoprolol succinate 50 MG tablet 50 mg PO DAILY Qty: 0 0RF Rx Instructions: Hold if heart rate less than 60/min acetaminophen 500 mg Tablet 1,000 mg PO Q6H PRN PRN (Reason: Pain Score 1-5) Qty: 0 0RF Eliquis 5 mg Tablet 5 mg PO BID 30 Days Qty: 60 0RF Patient Comments: HOLD 7 DAYS PRIOR TO PROCEDURE PER pantoprazole 40 mg Tablet,Delayed Release (Dr/Ec) 40 mg PO DAILY Qty: 30 0RF ondansetron HCl 8 mg tablet 8 mg PO Q8H PRN (Reason: nausea and vomiting) Patient Comments: take 1 tablet by mouth every 8 hours if needed for nausea and vomiting dicyclomine 10 mg capsule 10 mg PO BID PRN (Reason: abdominal pain) ibuprofen [Advil] 200 mg tablet 200 mg PO TID PRN (Reason: pain) diphenoxylate-atropine [Lomotil] 2.5-0.025 mg tablet 1 tab PO QHS PRN (Reason: diarrhea) azithromycin 250 mg tablet 250 mg PO DAILY PRN (Reason: DENTAL WORK) lisinopril 40 mg tablet 20 mg PO DAILY Patient Comments: changed from 40mg to20mg about a month ago cholecalciferol (vitamin D3) 1,250 mcg (50,000 unit) capsule 1,250 mcg PO QWEEK Patient Comments: SUNDAY @ 999 Changed amlodipine 5 mg tablet 10 mg PO DAILY 30 Days Qty: 0 0RF Referrals / Follow Up: Gary Merrill MD [Primary Care Provider] - Disposition Disposition (needs filled in before D/C Order can be placed): Home, Self Care Charges/Coding Visit Charges Inpatient E&M: 55201 Disch Hosp >30min
--- NOTE | 2025-02-25 14:05 | STRESSREP ---
Stress Test Report Pharmacologic myocardial perfusion stress test. Indication; 79-year-old patient presented with symptoms of chest pain relieved with nitroglycerin Has mild elevation of high sensitive troponin Echocardiogram showed LV function preserved Evaluated with Lexiscan sestamibi to assess for myocardial ischemia. Stress protocol: Resting EKG demonstrates. Normal sinus rhythm. 0.4 mg of regadenoson was infused per usual protocol followed by rapid intravenous saline flush injection continuous EKG monitoring was performed. The maximum heart rate attained was 102 bpm which was 71% of maximum predicted heart . Stress EKG showed[, no significant change from the resting EKG, with maximum heart rate of 102 bpm. Arrhythmia: No arrhythmia demonstrated Symptoms: Patient had no symptoms of chest pain Blood pressure at rest: [148/70 mmHg blood pressure at the end of stress: 158/60 mmHg Myocardial perfusion protocol. [12 mCi ]of Technetium 99m Sestamibi was injected at rest. [ 0.4 mg ]of Regadenoson was infused per usual protocol peak infusion[34 mCi ]of Technetium 99m sestamibi was injected. Stress images were obtained stress and rest images were reconstructed and compared in the short axis vertical and horizontal long axis. Gated images were also obtained Perfusion SPECT analysis: Review of the images demonstrate normal uptake of sestamibi at rest, post stress images demonstrate similar uptake of sestamibi to the resting images, homogeneous tracer uptake With no evidence of reversible myocardial ischemia. Gated SPECT analysis: The gated ejection fraction is 86% LV wall motion showed hyperdynamic left ventricle. Conclusion: Negative Lexiscan sestamibi myocardial perfusion study for reversible myocardial ischemia Hyperdynamic left ventricle. Gaudencio Ricketts MD,FACC,[facility]
[2025-02-25] MEDS: APIXABAN 5 MG TABLET PO (14:20)
--- NOTE | 2025-02-25 14:30 | CASEMGMT ---
ARCHIBALD Met with patient to complete ARCHIBALD form. ARCHIBALD form and its content were verbally explained and patient's questions were answered to the best of my ability.? Patient voiced understanding and signed ARCHIBALD form.? Patient provided a copy of signed ARCHIBALD form and original placed in patient's chart.? Patient had no further questions. Kayli Pearl, Discharge Planning Asst
--- NOTE | 2025-02-25 14:46 | CASEMGMT ---
Patient has order for discharge. RN CM in to discuss needs for discharge. Patient denies needs or help at discharge. Patient denies further questions or concerns.
[2025-02-25 15:02] VITALS: BP 170/67; PULSE 87; RESP 16; TEMP 36.8; O2SAT 99
== END 2025-02-25 15:06 | disposition home or self-care (01) ==
LOC: ED 13:34 → PCU 14:11
PROVIDERS: Admitting Provider Hospitalist; Emergency Provider Emergency Medicine; PCP Family Medicine; Visit Provider Internal Medicine
DX: R07.89 Other chest pain (principal); E78.5 Hyperlipidemia, unspecified; E27.40 Unspecified adrenocortical insufficiency; Z79.899 Other long term (current) drug therapy; N64.4 Mastodynia; Z86.718 Personal history of other venous thrombosis and embolism; G89.29 Other chronic pain; R79.89 Other specified abnormal findings of blood chemistry; Z79.01 Long term (current) use of anticoagulants; D50.9 Iron deficiency anemia, unspecified; K21.9 Gastro-esophageal reflux disease without esophagitis; Z87.891 Personal history of nicotine dependence; Z86.711 Personal history of pulmonary embolism; I10 Essential (primary) hypertension
CPT/HCPCS: 71045; 78452; 80048; 83735; 84484; 85025; 85027; 93005; 93017; 94668; 99221; 99252; 99285; A9500; A4216; G0378; G0463; J2785

== ENCOUNTER → 2025-03-16 | Outpatient (CLI) | payer MEDICARE, OTHER, SELFPAY ==
[2025-03-16 10:33] LABS: Mucous, Urine 0 SEEN /hpf (<or=2+)
[2025-03-16 12:36] LABS: Color, Urine Yellow (Yellow); Glucose, Dipstick Normal (Normal); Ketone-Dipstick Negative (Negative); Leukocyte Esterase-Dipstick 500 /ul (Negative); Nitrite-Dipstick Negative (Negative); Occult Blood-Urine 250 /ul (Negative); Protein-Dipstick 100 mg/dl (Negative); Specific Gravity, Urine 1.020 (1.002-1.030); Urine Bilirubin Dipstick Negative (Negative)
[2025-03-16 12:48] LABS: Red Blood Cells-Urine 0-5 SEEN /hpf (0-5); Squamous Epithelial Cells - UA 0-5 SEEN /hpf (5-10)
== END | disposition home or self-care (01) ==
LOC: MTLAB 10:30
PROVIDERS: PCP Family Medicine; Referring Provider Family Medicine; Visit Provider Family Medicine
DX: R39.9 Unspecified symptoms and signs involving the genitourinary system (principal)
CPT/HCPCS: 81001; 87077; 87086; 87088; 87186

== ENCOUNTER → 2025-03-25 | Outpatient (CLI) | payer MEDICARE, OTHER, SELFPAY ==
[2025-03-25 13:15] LABS: AST(SGOT) 15 U/L (<=31); Alanine Aminotransfer ALT/SGPT 14 U/L (<=34); Albumin, Serum 4.1 g/dL (3.4-4.8); Alkaline Phosphatase 87 U/L (35-104); Anion Gap 12 (5-15); BUN 19 mg/dL (4-19); BUN/Creat Ratio 20.7 RATIO (10-20); Calcium,Total 9.4 mg/dL (7.6-11.0); Carbon Dioxide 24.7 mmol/L (21.0-32.0); Chloride 103 mmol/L (98-108); Globulin 2.5 g/dL (2.2-4.2); Glucose 100 mg/dL (70-99); Potassium 3.8 mmol/L (3.3-5.1)
== END | disposition home or self-care (01) ==
LOC: MFPLAB 10:11
PROVIDERS: PCP Family Medicine; Referring Provider Family Medicine; Visit Provider Family Medicine
DX: I10 Essential (primary) hypertension (principal)
CPT/HCPCS: 36415; 80053

== ENCOUNTER → 2025-04-09 | Outpatient (CLI) | payer MEDICARE, OTHER, SELFPAY ==
[2025-04-09 15:57] LABS: Anion Gap 12 (5-15); BUN 18 mg/dL (4-19); BUN/Creat Ratio 18.7 RATIO (10-20); Calcium,Total 9.2 mg/dL (7.6-11.0); Carbon Dioxide 24.5 mmol/L (21.0-32.0); Chloride 103 mmol/L (98-108); Glucose 121 mg/dL (70-99); Potassium 3.7 mmol/L (3.3-5.1)
== END | disposition home or self-care (01) ==
LOC: MFPLAB 11:12
PROVIDERS: PCP Family Medicine; Visit Provider Family Medicine
DX: I10 Essential (primary) hypertension (principal)
CPT/HCPCS: 36415; 80048

== ENCOUNTER 2025-05-01 14:54 | Emergency (ER) | payer MEDICARE, OTHER, SELFPAY ==
[2025-05-01] VITALS (18 sets, daily range): BP systolic 107–143; BP diastolic 44–117; PULSE 79–115; RESP 12–25; TEMP 36.6–37.4; O2SAT 91–99; BMI 30.3
--- NOTE | 2025-05-01 17:12 | EKG12_ITS ---
Test Reason : CP Blood Pressure : */* mmHG Vent. Rate : 112 BPM Atrial Rate : 112 BPM P-R Int : 166 ms QRS Dur : 74 ms QT Int : 332 ms P-R-T Axes : 62 83 58 degrees QTcB Int : 453 ms Sinus tachycardia Low voltage QRS Borderline ECG Confirmed by LISBETH HECTOR, TRELL ([id number]), content editor CLAYTON QUINONES ([id number]) on 05/04/2025 9:11:27 AM Referred By: KIMMY/LENORA Confirmed By: TRELL BOB MD
[2025-05-01] MEDS: 0.9% Normal Saline (1000mL) 1,000 ML 1000 ML IV (17:22)
--- NOTE | 2025-05-01 17:35 | RAD_ITS ---
EXAM: XR Chest, 1 View CLINICAL INDICATION: CHEST PAIN TECHNIQUE: Frontal view of the chest. COMPARISON: No relevant prior studies available. FINDINGS: LUNGS AND PLEURAL SPACES: Unremarkable. No consolidation. No pneumothorax. HEART: Unremarkable. No cardiomegaly. MEDIASTINUM: Unremarkable. Normal mediastinal contour. BONES/JOINTS: Unremarkable. No acute fracture. RAD/Chest PA and Lateral IMPRESSION: No acute cardiopulmonary process. Reading Location: [id number]
[2025-05-01 17:40] LABS: Hematocrit 31.0 % (37-47); Hemoglobin 10.0 g/dL (12.0-15.0); Immature Granulocytes Count 0.040 X10^3/uL (0.0-0.0); Mean Corp Hgb Conc 32.3 g/dL (32-36); Mean Corpuscular Volume 90.1 fL (81-99); Mean Platelet Vol. 10.3 fl (6.2-12.0); NRBC Flagged by Analyzer 0 % (0-5); Platelet Count 230 K/mm3 (150-450); RBC Distribution Width CV 14.3 % (11.6-14.6); RBC Distribution Width SD 46.3 fl (35.1-43.9); Red Blood Count 3.44 M/mm3 (4.2-5.4); White Blood Count 9.0 K/mm3 (4.4-11.0)
[2025-05-01 17:48] LABS: Troponin T High Sensitivity 16 ng/L (<=14)
[2025-05-01 17:49] LABS: AST(SGOT) 14 U/L (<=31); Alanine Aminotransfer ALT/SGPT 15 U/L (<=34); Albumin, Serum 4.0 g/dL (3.4-4.8); Alkaline Phosphatase 97 U/L (35-104); Anion Gap 13 (5-15); BUN 20 mg/dL (4-19); BUN/Creat Ratio 20.6 RATIO (10-20); Calcium,Total 9.3 mg/dL (7.6-11.0); Carbon Dioxide 21.8 mmol/L (21.0-32.0); Chloride 101 mmol/L (98-108); Estimated Creatinine Clearance 53.99 ml/min (50-250); Globulin 2.8 g/dL (2.2-4.2); Glucose 133 mg/dL (70-99); Lipase 37 U/L (13-75); Potassium 4.2 mmol/L (3.3-5.1)
[2025-05-01 19:26] LABS: Troponin T High Sens 2 HR 15 ng/L (<=14)
[2025-05-01 19:27] LABS: Mucous, Urine 0 SEEN /hpf (<or=2+)
[2025-05-01 19:29] LABS: Color, Urine Yellow (Yellow); Glucose, Dipstick Normal (Normal); Ketone-Dipstick Negative (Negative); Leukocyte Esterase-Dipstick 25 /ul (Negative); Nitrite-Dipstick Negative (Negative); Occult Blood-Urine Negative /ul (Negative); Protein-Dipstick 15 mg/dl (Negative); Specific Gravity, Urine 1.015 (1.002-1.030); Urine Bilirubin Dipstick Negative (Negative)
--- NOTE | 2025-05-01 20:47 | EDS_ITS ---
HPI History of Present Illness Chief Complaint: Chest Pain Informant: patient Narrative Narrative: Patient is a 79-year-old female with history of metastatic melanoma, IVC filter, chronic anticoagulation on Eliquis, hypertension, GERD, polyneuropathy, hyperlipidemia and chronic steroid dependency presenting for generalized weakness, relatively extreme fatigue, body aches and chest heaviness for the past 2 to 3 days. States she has been feeling mildly short of breath with this. She notes that at home her heart rate has been greater than 120 when she is moving around. She has had temperature of 99 at home which is high for her. She notes that sometimes her chest discomfort is worse when she takes a deep breath. She does not intermittently lightheaded. She does have some chronic leg swelling but this is unchanged. She has associated nausea or vomiting. She has a black or blood in her stool. She has a recent URI symptoms such as congestion or sore throat. She denies any sick contacts. She notes she is post to start immunotherapy this coming Sunday. She called her oncologist, Dr. Palma about her symptoms and they recommend she come to the ER for further evaluation. She states for the past 24 hours she is just wanting to sleep. No other complaints or concerns at this time [facility] Medical History Elevated troponin Hypertension History of Holter monitoring Hx of malignant carcinoid tumor Weakness Chronic pain Obesity (BMI 30.0-34.9) History of syncope Generalized abdominal pain Wears glasses Arthritis Neuropathy History of pain when walking History of echocardiogram Cardiology follow-up encounter History of atrial fibrillation Syncopal episodes Metastatic melanoma Duodenal mass Post-menopausal History of steroid therapy Anemia History of immunosuppression therapy Seizures Adrenal insufficiency 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 Bilateral pulmonary embolism Pulmonary emboli Left leg DVT Anticoagulated Former smoker Mild cognitive impairment COVID-19 Polyneuropathy Essential hypertension GERD (gastroesophageal reflux disease) Hyperlipidemia Home Medications ?Medication ?Instructions ?Recorded ?Last Taken ?Type metoprolol succinate 50 mg 50 mg PO DAILY heart rate # #0 08/15/20 02/24/25 Rx tablet,extended release 24 hr atorvastatin 40 mg tablet 40 mg PO DAILY cholesterol 0 09/24/20 02/23/25 History acetaminophen 500 mg tablet 1,000 mg (2 x 500 mg) PO Q 6H PRN 07/27/23 10/07/24 07:20 Rx PRN Pain Score 1-5 #0 tabs apixaban 5 mg tablet (Eliquis) 5 mg PO BID blood thinn er 30 days 07/27/23 02/24/25 Rx #60 tabs pantoprazole 40 mg tablet,delayed 40 mg PO DAILY #30 t abs 08/29/23 02/24/25 Rx release melatonin 3 mg tablet 3 mg PO HS PRN sleep 4 02/23/25 History ondansetron HCl 8 mg tablet 8 mg PO Q8H PRN nausea and vomiting 11/02/23 Unknown History tizanidine 4 mg capsule 4 mg PO Q8H PRN muscle spast icity 03/27/24 Unknown History lisinopril 40 mg tablet 20 mg PO DAILY 01/22/2501/27 History dicyclomine 10 mg capsule 10 mg PO BID PRN abdominal p ain 01/28/25 Unknown History diphenoxylate-atropine 2.5 1 tab PO QHS PRN diarrhea 0 01/28/25 Unknown History mg-0.025 mg tablet (Lomotil) ibuprofen 200 mg tablet (Advil) 200 mg PO TID PRN pain 01/28/25 Unknown History amlodipine 5 mg tablet 5 mg PO DAILY 03/27/25 Unkno wn History cholecalciferol (vitamin D3) 50 50 mcg PO QDAY 5 Unknown History mcg (2,000 unit) capsule prednisone 5 mg tablet 5 mg PO DAILY #100 tabs 09/20 Unknown Rx Allergy/AdvReac Type Severity Reaction Status Date / Time Sulfa (Sulfonamide Allergy Severe Swelling Verified 05/01/25 14:58 Antibiotics) amoxicillin AdvReac Severe Diarrhea Verified 05/01/25 14:58 sulfamethoxazole (From AdvReac Severe Anaphylaxis Verified 05/01/25 14:58 Bactrim) trimethoprim (From Bactrim) AdvReac Severe Swelling Verified 05/01/25 14:58 Family History Brother Alcoholism Asthma Myocardial infarction, Onset Age: 52 Seizures Skin cancer Sister CVA (cerebral vascular accident) Asthma Grandfather Asthma Father Myocardial infarction, Onset Age: 46 Had at age 46 & 62 Mother Myocardial infarction, Onset Age: 82 Surgical History Hx of surgical procedure History of total left hip replacement History of amputation of finger History of right hip replacement History of cataract surgery History of eye surgery Social History household members: spouse Smoking Status: Former smoker Tobacco: How many years used: 30 how long ago did patient quit smokin years ago second hand exposure: No alcohol intake: current alcohol intake frequency: holidays/special occasions only Alcohol type: wine substance use type: does not use amy/roman catholic: None seatbelt use: always ROS ROS ED Constitutional Constitutional ED: Reports other Details: Low-grade temperature per patient (99), generalized fatigue ; Denies chills or fever(s) Eyes Eyes: Denies blurry vision ENT ENT ED: Denies rhinorrhea or sore throat Cardiovascular Cardiovascular: Reports chest pain Respiratory/Chest Respiratory/Chest: Reports dyspnea; Denies cough Gastrointestinal Gastrointestinal: Denies abdominal pain, melena, nausea or vomiting Musculoskeletal Musculoskeletal: Reports myalgias; Denies arthralgias Integumentary Denies rash Neurologic Neurologic: Reports weakness; Denies paresthesias Psychiatric Psychiatric: Denies anxiety Hematologic/Lymphatic Hematologic/Lymphatic: Reports easy bleeding and easy bruising EXAM Physical Exam Const Vital Signs: 05/01/25 14:55 05/01/25 15:54 05/01/25 16:28 Temperature 99.3 F H Temperature Source Oral Pulse Rate 115 H 103 H 102 H Respiratory Rate 17 17 21 H Respiratory Effort Blood Pressure 143/71 H 136/66 H Blood Pressure Mean 95 89 Pulse Ox 94 97 91 Oxygen Delivery Method Room Air 05/01/25 16:30 05/01/25 16:45 05/01/25 17:00 Temperature Temperature Source Pulse Rate 101 H 108 H Respiratory Rate 19 H 17 Respiratory Effort Blood Pressure 118/60 116/69 125/44 H Blood Pressure Mean 78 83 65 Pulse Ox 91 94 Oxygen Delivery Method 05/01/25 17:08 05/01/25 17:11 05/01/25 17:15 Temperature 98.6 F Temperature Source Oral Pulse Rate 95 103 H Respiratory Rate 12 19 H Respiratory Effort Normal Non-Labored Blood Pressure 125/44 H 130/117 H Blood Pressure Mean 71 123 Pulse Ox 99 98 Oxygen Delivery Method Room Air 05/01/25 17:30 05/01/25 17:45 05/01/25 18:00 Temperature Temperature Source Pulse Rate 98 92 88 Respiratory Rate 25 H 19 H 16 Respiratory Effort Blood Pressure Blood Pressure Mean Pulse Ox 98 95 91 Oxygen Delivery Method 05/01/25 18:15 05/01/25 18:30 05/01/25 18:45 Temperature Temperature Source Pulse Rate 88 93 93 Respiratory Rate 19 H 20 H 14 Respiratory Effort Blood Pressure Blood Pressure Mean Pulse Ox 93 94 96 Oxygen Delivery Method 05/01/25 19:00 05/01/25 20:14 Temperature Temperature Source Pulse Rate 87 91 Respiratory Rate 16 16 Respiratory Effort Blood Pressure 120/54 L 131/55 H Blood Pressure Mean 76 80 Pulse Ox 93 97 Oxygen Delivery Method Room Air Room Air Positive well nourished and well developed General Appearance ED: well developed and NAD HEENT Reports moist mucous membranes HEENT Narrative: No nasal congestion. Normal oropharynx. normocephalic and atraumatic Eyes PERRL Neck supple and no JVD Chest Wall inspection of chest normal and palpation of chest normal Resp normal respiratory effort and clear to auscultation bilaterally Auscultation: Negative for wheezes or diminished lung sounds Cardio regular rhythm and no murmurs Cardio Narrative: 2+ radial and DP pulses present Rate: tachycardic GI normal to inspection, nondistended, normoactive bowel sounds and soft to palpation Extremity normal to inspection General Extremety ED: Negative for edema General Extremity: Negative for edema Neuro oriented x3, CN's II-XII intact bilaterally and no sensory deficits noted Sensorium / Orientation: awake and alert Motor Exam: strength 5/5 throughout and general weakness Psych mental status grossly normal Skin no rashes or lesions noted and no wounds Skin Narrative: Soft tissue masses of the left arm in the AC fossa consistent with her melanoma Heart Score History: Slightly/Non-Suspicious ECG: Normal Age: >/= 65 years Risk Factors: 1 or 2 Risk Factors Troponin: </= Normal Limit Score: 3 MDM MDM MDM Narrative Medical decision making narrative: Patient evaluated for generalized weakness and chest discomfort. She appears nontoxic and in no acute distress. Differential includes ACS, arrhythmia, infection, adrenal crisis, FRANNY, electrolyte derangement, viral syndrome and symptomatic anemia. Patient given IV fluids in the emergency room. Heart rate does improve with IV fluids. She is also given Tylenol. Cardiac and infectious workup largely unremarkable. CBC shows a chronic anemia the hemoglobin 10.0 which is at her baseline. No leukocytosis or left shift. Her lactate is less than 1. Her CMP is normal with no electrolyte derangement. Her high-sensitivity troponin is 16 and on repeat 15. EKG does not show any ischemic EKG changes. Liver panel normal. Urinalysis not consistent with infection. Chest x-ray reviewed by myself as well as radiology does not show any acute process. COVID flu and RSV swab are negative. Patient is anticoagulated plus has an IVC filter so very low suspicion for PE as the cause of her chest discomfort. She requires a CTA at this time. Patient ambulates with a steady gait in emergency room. Discussed that I am not sure what is causing her symptoms but at this time a do not have any alarming findings. She is comfortable with following up outpatient with oncology. I did speak with on-call oncology, Dr. Celeste, who had no further recommendations at this time and was agreeable with outpatient follow-up. Patient is given return precautions. Patient has been agreeable this plan of care. At this time as her vital signs are normal and she does not have an active sign of infection on her blood work I do not think she requires stress dose steroids. Lab Data Attestation: I reviewed the patient's lab results. Labs: Laboratory Results - last 24 hr 05/01/25 05/01/25 05/01/25 15:47 17:20 18:52 WBC 9.0 RBC 3.44 L Hgb 10.0 L Hct 31.0 L MCV 90.1 MCH 29.1 MCHC 32.3 RDW Std Deviation 46.3 H RDW Coeff of Lynn 14.3 Plt Count 230 MPV 10.3 Immature Gran % (Auto) 0.400 Neut % (Auto) 79.8 H Lymph % (Auto) 9.8 L [place] % (Auto) 9.7 Eos % (Auto) 0.2 Baso % (Auto) 0.1 Absolute Neuts (auto) 7.2 Absolute Lymphs (auto) 0.89 Nucleated RBC % 0 Sodium 135 Potassium 4.2 Chloride 101 Carbon Dioxide 21.8 Anion Gap 13 BUN 20 H Creatinine 0.96 Estim Creat Clear Calc 53.99 Est GFR (MDRD) Non-Af 61 BUN/Creatinine Ratio 20.6 H Glucose 133 H Lactic Acid < 1.0 Calcium 9.3 Total Bilirubin 0.69 AST 14 ALT 15 Alkaline Phosphatase 97 Troponin T High Sens 16 H D Troponin T Hi Sens 2 Hr 15 H Total Protein 6.7 Albumin 4.0 Globulin 2.8 Albumin/Globulin Ratio 1.4 Lipase 37 Urine Color Urine Clarity Urine pH Ur Specific Stephens Urine Protein Urine Glucose (UA) Urine Ketones Urine Occult Blood Urine Nitrite Urine Bilirubin Urine Urobilinogen Ur Leukocyte Esterase 05/01/25 19:16 WBC RBC Hgb Hct MCV MCH MCHC RDW Std Deviation RDW Coeff of Lynn Plt Count MPV Immature Gran % (Auto) Neut % (Auto) Lymph % (Auto) [place] % (Auto) Eos % (Auto) Baso % (Auto) Absolute Neuts (auto) Absolute Lymphs (auto) Nucleated RBC % Sodium Potassium Chloride Carbon Dioxide Anion Gap BUN Creatinine Estim Creat Clear Calc Est GFR (MDRD) Non-Af BUN/Creatinine Ratio Glucose Lactic Acid Calcium Total Bilirubin AST ALT Alkaline Phosphatase Troponin T High Sens Troponin T Hi Sens 2 Hr Total Protein Albumin Globulin Albumin/Globulin Ratio Lipase Urine Color Yellow Urine Clarity Clear Urine pH 6.0 Ur Specific Stephens 1.015 Urine Protein 15 H Urine Glucose (UA) Normal Urine Ketones Negative Urine Occult Blood Negative Urine Nitrite Negative Urine Bilirubin Negative Urine Urobilinogen Normal Ur Leukocyte Esterase 25 H Radiography Chest X-Ray - ED: 2 View, Read by ED Physician, Read by Radiologist, No Acute Disease and No Infiltrates Diagnostic Testing: Clinical Impression(s) from Imaging Studies Chest X-Ray 05/01/25 17:35 IMPRESSION: No acute cardiopulmonary process. Reading Location: [facility] Rhythm Strip Rhythm Strip: Sinus Tach Rate: 112 Ectopy: None EKG Initial EKG: Attestation: I personally reviewed and interpreted this EKG as follows: Interpretation: Sinus Tachycardia Comments: Sinus tachycardia rate 112 bpm Normal axis Normal intervals Normal ST segments Management Discussion w/another healthcare provider: [employer] Supervisor Discharge Plan Triage Chief Complaint: Chest Pain ED Provider: Alyssa Lewis Dx/Rx/DC Orders Clinical Impression: Weakness, Chest heaviness, Metastatic melanoma Instructions: ED Chest Pain, Uncertain Cause, ED Weakness Uncertain Cause Prescriptions: No Action atorvastatin 40 mg tablet 40 mg PO DAILY melatonin 3 mg tablet 3 mg PO HS PRN (Reason: sleep) tizanidine 4 mg capsule 4 mg PO Q8H PRN (Reason: muscle spasticity) cholecalciferol (vitamin D3) 50 mcg (2,000 unit) capsule 50 mcg PO QDAY amlodipine 5 mg tablet 5 mg PO DAILY prednisone 5 mg tablet 5 mg PO DAILY Qty: 100 3RF Patient Comments: TAKING 10 MG DAILY IF SICK Rx Instructions: double dose for fever/acute illness metoprolol succinate 50 MG tablet 50 mg PO DAILY Qty: 0 0RF Rx Instructions: Hold if heart rate less than 60/min acetaminophen 500 mg Tablet 1,000 mg PO Q6H PRN PRN (Reason: Pain Score 1-5) Qty: 0 0RF Eliquis 5 mg Tablet 5 mg PO BID 30 Days Qty: 60 0RF Patient Comments: HOLD 7 DAYS PRIOR TO PROCEDURE PER pantoprazole 40 mg Tablet,Delayed Release (Dr/Ec) 40 mg PO DAILY Qty: 30 0RF ondansetron HCl 8 mg tablet 8 mg PO Q8H PRN (Reason: nausea and vomiting) Patient Comments: take 1 tablet by mouth every 8 hours if needed for nausea and vomiting dicyclomine 10 mg capsule 10 mg PO BID PRN (Reason: abdominal pain) ibuprofen [Advil] 200 mg tablet 200 mg PO TID PRN (Reason: pain) diphenoxylate-atropine [Lomotil] 2.5-0.025 mg tablet 1 tab PO QHS PRN (Reason: diarrhea) lisinopril 40 mg tablet 20 mg PO DAILY Patient Comments: changed from 40mg to20mg about a month ago Primary Care Provider: Gary Merrill Referrals: Gary Merrill MD [Primary Care Provider] - Activity Restrictions/Additional Instructions: Your Today was largely normal and reassuring. The exact cause of your symptoms is not clear. This time I feel that you can follow-up with your oncology team and primary care doctor as scheduled/needed. Please return if you have any progression or worsening your symptoms. Print Language: [place] Disposition Disposition: Home, Self Care
[2025-05-01 21:07] LABS: Red Blood Cells-Urine 0-5 SEEN /hpf (0-5); Squamous Epithelial Cells - UA 0-5 SEEN /hpf (5-10); Transitional Epithelial - Ur 0-5 SEEN /hpf (0-5)
== END 2025-05-01 20:59 | disposition home or self-care (01) ==
PROVIDERS: Emergency Provider Emergency Medicine; PCP Family Medicine; Visit Provider Emergency Medicine
DX: R53.1 Weakness (principal); C79.9 Secondary malignant neoplasm of unspecified site; R07.89 Other chest pain; Z82.49 Family history of ischemic heart disease and other diseases of the circulatory system; I10 Essential (primary) hypertension; Z86.711 Personal history of pulmonary embolism; Z86.718 Personal history of other venous thrombosis and embolism; Z87.891 Personal history of nicotine dependence; Z80.8 Family history of malignant neoplasm of other organs or systems; D64.9 Anemia, unspecified; E78.5 Hyperlipidemia, unspecified; R23.3 Spontaneous ecchymoses; Z86.16 Personal history of COVID-19; K21.9 Gastro-esophageal reflux disease without esophagitis; Z79.01 Long term (current) use of anticoagulants; R11.2 Nausea with vomiting, unspecified; M79.89 Other specified soft tissue disorders; R00.0 Tachycardia, unspecified; R06.02 Shortness of breath
CPT/HCPCS: 71046; 80053; 81001; 83605; 83690; 84484; 85025; 87631; 93005; 96360; 96361; 99285; A4216

== ENCOUNTER 2025-05-30 01:48 | Emergency (ER) | payer MEDICARE, OTHER, SELFPAY ==
[2025-05-30] VITALS (12 sets, daily range): BP systolic 138–186; BP diastolic 67–87; PULSE 70–83; RESP 12–16; TEMP 36.8–37; O2SAT 93–100; BMI 29.8
--- NOTE | 2025-05-30 02:03 | EKG12_ITS ---
Test Reason : CP Blood Pressure : */* mmHG Vent. Rate : 83 BPM Atrial Rate : 83 BPM P-R Int : 180 ms QRS Dur : 70 ms QT Int : 384 ms P-R-T Axes : 46 38 57 degrees QTcB Int : 451 ms Normal sinus rhythm Nonspecific ST abnormality Abnormal ECG Confirmed by LISBETH HECTOR, TRELL ([id number]), script editor GAVINO ZEPEDA ([id number]) on 06/01/2025 6:31:57 AM Referred By: BB Confirmed By: TRELL BOB MD
--- NOTE | 2025-05-30 02:03 | CT_ITS ---
PROCEDURE: ABDOMEN/PELVIS W IV CONT ONLY 05/30/2025 REASON FOR EXAM: UPPER ABD PAIN TECHNIQUE: Procedure Code: [id number] Modality: CT Procedure: ABDOMEN/PELVIS W IV CONT ONLY Coronal and Sagittal reconstruction series were provided. CONTRAST: OMNIPAQUE 350 VOLUME: 100 mL One or more dose reduction techniques were used (e.g., Automated exposure control, adjustment of the mA and/or kV according to patient size, use of iterative reconstruction technique. RADIATION DOSE SUMMARY: CTDlvol: 14.6 mGy DLP: 562 mGycm COMPARISON: CT scan on 11/04/2023. FINDINGS: Mild left pleural effusion, increased. Increased passive atelectatic airspace disease in the left lower lobe. Mildly distended gallbladder. Well-defined 1 cm simple cyst in the right hepatic lobe. Diffuse thickening of the stomach suggestive of gastritis. IVC filter is noted. Left renal simple cyst measuring 1 cm. Mild osteopenia. Diffuse spondylosis. Mild osteopenia. Unremarkable metallic prostheses of the hips. Normal remaining liver. Normal extrahepatic biliary system. Normal spleen. Normal pancreas. Normal bilateral adrenal glands. Normal size of the right kidney. There is no right renal mass. There are no right renal calculi. There is no right hydronephrosis. Normal visualized right ureter. Normal size of the left kidney. There is no left renal mass. There are no left renal calculi. There is no left hydronephrosis. Normal visualized left ureter. Normal small intestine. The appendix is visualized and appears normal. There is no demonstrated peritoneal fluid. Calcified atheromatous plaques of the abdominal aorta. Normal inferior vena cava. Normal retroperitoneum. Normal urinary bladder. There is no pelvic mass lesion or lymphadenopathy. There is no pelvic fluid. CT/Abdomen/Pelvis W IV Cont ONLY IMPRESSION: Mild left pleural effusion, increased. Increased passive atelectatic airspace disease in the left lower lobe. Mildly distended gallbladder. Well-defined 1 cm simple cyst in the right hepatic lobe. Diffuse thickening of the stomach suggestive of gastritis. IVC filter is noted. Left renal simple cyst measuring 1 cm. Mild osteopenia. Diffuse spondylosis. Mild osteopenia. Unremarkable metallic prostheses of the hips. Reading [facility] [id number]
--- NOTE | 2025-05-30 02:07 | EDS_ITS ---
HPI History of Present Illness Chief Complaint: Chest Pain Informant: patient and spouse/S.O. Narrative Narrative: Patient is a 79-year-old female with a history of melanoma presenting to the ED with acute onset mid lower retrosternal chest pain without radiation. Patient is accompanied by her who is supplementing history. - Patient was discharged from [facility] today after a 9-10 day stay. - Initially admitted for isolated limb infusion for melanoma on her left arm. 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 - Currently undergoing immunotherapy with Keytruda. - Reports mid-chest pain that began a few hours ago while lying down; pain worsened upon waking. Did not have any of this pain while in the hospital. - Associated symptoms include dry mouth and discomfort. - Denies dyspnea, palpitations, or presyncope. - Denies nausea, but reports RUQ pressure that induces gagging during physical exam. - Denies abdominal pain, but notes pressure in the upper abdomen. - Denies pain with deep inspiration. - Pain not alleviated by sitting up or drinking water; attempted to sleep in a chair without relief. - Reports severe arm pain related to melanoma and recent procedures [facility] Medical History Elevated troponin Hypertension History of Holter monitoring Hx of malignant carcinoid tumor Weakness Chronic pain Obesity (BMI 30.0-34.9) History of syncope Generalized abdominal pain Wears glasses Arthritis Neuropathy History of pain when walking History of echocardiogram Cardiology follow-up encounter History of atrial fibrillation Syncopal episodes Metastatic melanoma Duodenal mass Post-menopausal History of steroid therapy Anemia History of immunosuppression therapy Seizures Adrenal insufficiency 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 Bilateral pulmonary embolism Pulmonary emboli Left leg DVT Anticoagulated Former smoker Mild cognitive impairment COVID-19 Polyneuropathy Essential hypertension GERD (gastroesophageal reflux disease) Hyperlipidemia Home Medications ?Medication ?Instructions ?Recorded ?Last Taken ?Type metoprolol succinate 50 mg 50 mg PO DAILY heart rate # #0 08/15/20 02/24/25 Rx tablet,extended release 24 hr atorvastatin 40 mg tablet 40 mg PO DAILY cholesterol 0 09/24/20 02/23/25 History acetaminophen 500 mg tablet 1,000 mg (2 x 500 mg) PO Q 6H PRN 07/27/23 10/07/24 07:20 Rx PRN Pain Score 1-5 #0 tabs apixaban 5 mg tablet (Eliquis) 5 mg PO BID blood thinn er 30 days 07/27/23 02/24/25 Rx #60 tabs pantoprazole 40 mg tablet,delayed 40 mg PO DAILY #30 t abs 08/29/23 02/24/25 Rx release melatonin 3 mg tablet 3 mg PO HS PRN sleep 4 02/23/25 History ondansetron HCl 8 mg tablet 8 mg PO Q8H PRN nausea and vomiting 11/02/23 Unknown History tizanidine 4 mg capsule 4 mg PO Q8H PRN muscle spast icity 03/27/24 Unknown History lisinopril 40 mg tablet 20 mg PO DAILY 01/22/2501/27 History dicyclomine 10 mg capsule 10 mg PO BID PRN abdominal p ain 01/28/25 Unknown History diphenoxylate-atropine 2.5 1 tab PO QHS PRN diarrhea 0 01/28/25 Unknown History mg-0.025 mg tablet (Lomotil) ibuprofen 200 mg tablet (Advil) 200 mg PO TID PRN pain 01/28/25 Unknown History amlodipine 5 mg tablet 5 mg PO DAILY 03/27/25 Unkno wn History cholecalciferol (vitamin D3) 50 50 mcg PO QDAY 5 Unknown History mcg (2,000 unit) capsule prednisone 5 mg tablet 5 mg PO DAILY #100 tabs 09/20 Unknown Rx Allergy/AdvReac Type Severity Reaction Status Date / Time Sulfa (Sulfonamide Allergy Severe Swelling Verified 05/01/25 14:58 Antibiotics) amoxicillin AdvReac Severe Diarrhea Verified 05/01/25 14:58 sulfamethoxazole (From AdvReac Severe Anaphylaxis Verified 05/01/25 14:58 Bactrim) trimethoprim (From Bactrim) AdvReac Severe Swelling Verified 05/01/25 14:58 Family History Brother Alcoholism Asthma Myocardial infarction, Onset Age: 52 Seizures Skin cancer Sister CVA (cerebral vascular accident) Asthma Grandfather Asthma Father Myocardial infarction, Onset Age: 46 Had at age 46 & 62 Mother Myocardial infarction, Onset Age: 82 Surgical History Hx of surgical procedure History of total left hip replacement History of amputation of finger History of right hip replacement History of cataract surgery History of eye surgery Social History household members: spouse Smoking Status: Former smoker Tobacco: How many years used: 30 how long ago did patient quit smokin years ago second hand exposure: No alcohol intake: current alcohol intake frequency: holidays/special occasions only Alcohol type: wine substance use type: does not use amy/christian: None seatbelt use: always ROS ROS ED Constitutional Constitutional ED: Denies chills or fever(s) Eyes Eyes: Denies change in vision or diplopia ENT ENT ED: Denies rhinorrhea or sore throat Cardiovascular Cardiovascular: Reports as per HPI and chest pain; Denies palpitations Respiratory/Chest Respiratory/Chest: Denies cough or dyspnea Gastrointestinal Gastrointestinal: Denies abdominal pain, diarrhea, nausea or vomiting Genitourinary Genitourinary ED: Denies dysuria or hematuria Musculoskeletal Musculoskeletal: Reports other Details: left arm pain related to melanoma ; Denies back pain or neck pain Integumentary Denies abscess or rash Neurologic Neurologic: Denies headache(s), paresthesias or weakness Psychiatric Psychiatric: Denies anxiety or suicidal thoughts EXAM Physical Exam Const Vital Signs: 05/30/25 01:49 05/30/25 02:15 05/30/25 02:48 Temperature 98.2 F Temperature Source Oral Pulse Rate 83 74 Respiratory Rate 16 16 Blood Pressure 176/87 H 184/78 H Blood Pressure Mean 116 113 Pulse Ox 99 97 97 Oxygen Delivery Method Room Air Room Air 05/30/25 03:00 05/30/25 04:00 05/30/25 04:52 Temperature Temperature Source Pulse Rate 73 80 72 Respiratory Rate 16 16 16 Blood Pressure 168/76 H 154/74 H 183/79 H Blood Pressure Mean 106 100 113 Pulse Ox 93 98 97 Oxygen Delivery Method Room Air Room Air Room Air 05/30/25 06:00 05/30/25 06:52 05/30/25 08:00 Temperature Temperature Source Pulse Rate 75 70 71 Respiratory Rate 16 16 12 Blood Pressure 150/69 H 186/74 H 138/71 H Blood Pressure Mean 96 111 93 Pulse Ox 98 98 Oxygen Delivery Method Room Air Room Air Positive well nourished and well developed General Appearance ED: well developed and NAD HEENT Reports moist mucous membranes normocephalic and atraumatic Eyes PERRL and EOMs intact bilaterally Neck full ROM and supple Chest Wall inspection of chest normal Chest: Negative for tenderness Resp normal respiratory effort and clear to auscultation bilaterally Cardio regular rate, regular rhythm and no murmurs GI non-distended GI Narrative: Very tender in both upper quadrants and high in the epigastrium, with some involuntary guarding no rebound tenderness, causing the patient to gag a couple times as well. No lower abdominal tenderness. Healing drain site in the epigastrium. Auscultation: normoactive bowel sounds Palpation: soft Back/Spine no CVA tenderness General Back: other FROM Extremity normal to inspection Extremity Narrative: Left upper extremity diffusely tender neurovascular intact distally General Extremety ED: Yes tenderness; Negative for edema or pulses abnormal General Extremity: Negative for edema or pulses abnormal Neuro oriented x3, CN's II-XII intact bilaterally and no sensory deficits noted Sensorium / Orientation: awake and alert Motor Exam: strength 5/5 throughout Skin no rashes or lesions noted and no wounds Heart Score History: Moderately Suspicious ECG: Normal Age: >/= 65 years Risk Factors: 1 or 2 Risk Factors Troponin: >1 - <3 Normal Limit Score: 5 MDM MDM MDM Narrative Medical decision making narrative: patient's EKG appears unremarkable. It is indeterminate if this is intrathoracic or an intra-abdominal process. Will obtain a cardiac workup including sequential troponin measurements, she is anticoagulated on apixaban so I do not think we need to test her for pulmonary embolus, and also will evaluate for intra-abdominal etiologies such as pancreatitis, cholecystitis, or intraperitoneal bleeding related to recent procedure that she had, the summary that the patient's brought with him shows that she was diagnosed with pericardial tamponade and had a pericardiocentesis with a drain that was removed several days ago. Labs noted and only remarkable for slightly elevated AST and ALT and elevated troponins, her initial level was 62, a 2-hour level was 61, and 4-hour level is 59 in context of a normal EKG, of undetermined significance right now. Differential includes acute coronary syndrome in context of her chest discomfort, myocarditis, or elevated troponins from her recent admission that have been coming down. Also obtained CT of the abdomen/pelvis to evaluate for upper abdominal etiologies given her exam and upper abdominal tenderness. I reviewed the images as well as her stat portable chest x-ray, both negative for acute abnormality on my interpretation. Per radiology CT shows small left pleural effusion, dilated gallbladder without radiographically visible stones, and mild diffuse thickening of the stomach. She has an IVC filter. There is no pericardial effusion on the CT now. She was given a couple doses of morphine mostly because of her left arm pain which is not why she came here. With regards to the chest/epigastric discomfort I reexamined her and she was quite tender in epigastrium so I gave her some Mylanta and we tried that, she said that she is doing better with that. I called and talked to the transfer center at [facility]. They reviewed the recent records from her admission, she had no troponin measurements at all. She was taken to the [facility] to do the pericardiocentesis for tamponade but she did not have a heart catheterization. I am seeing that at our facility she had a negative nuclear stress test 3 months ago in February. I think we reasonable to obs erve her in the hospital given all of this and the abnormal troponins. I spoke to the hospitalist but they asked me to run it by cardiology, who given the fact that he would do an echocardiogram and she may have just had a echocardiogram at the outside facility where she just had a cardiac procedure, he thinks is more appropriate that she is transferred back there, the patient is comfortable with that. I discussed with the transfer center for medical transfer. Accepted by Dr. Boland, who also asked me to discuss with their negative turner. That callback is pending. repeat BP 138/71. History & Record Review Additional record(s) reviewed:: Prior inpatient record (summary of recent admission that provides (one page)) and Other (nuclear stress negative 02/25/2025) Lab Data Attestation: I reviewed the patient's lab results. Labs: Laboratory Results - last 24 hr 05/30/25 05/30/25 05/30/25 02:13 04:03 06:18 WBC 6.0 RBC 4.06 L Hgb 11.1 L Hct 35.1 L MCV 86.5 MCH 27.3 MCHC 31.6 L RDW Std Deviation 41.5 RDW Coeff of Lynn 13.4 Plt Count 270 MPV 9.7 Immature Gran % (Auto) 2.200 H Neut % (Auto) 68.5 Lymph % (Auto) 16.5 L [place] % (Auto) 12.0 H Eos % (Auto) 0.5 Baso % (Auto) 0.3 Absolute Neuts (auto) 4.1 Absolute Lymphs (auto) 0.99 Nucleated RBC % 0.3 Sodium 137 Potassium 3.6 Chloride 100 Carbon Dioxide 22.3 Anion Gap 14 BUN 18 Creatinine 0.69 L Estim Creat Clear Calc 64.28 Est GFR (MDRD) Non-Af 89 BUN/Creatinine Ratio 26.6 H Glucose 97 Calcium 8.7 Total Bilirubin 0.46 AST 69 H ALT 48 H Alkaline Phosphatase 78 Troponin T High Sens 62 H* D Troponin T Hi Sens 2 Hr 61 H* Troponin T Hi Sens 4Hr 59 H* Total Protein 6.4 Albumin 3.9 Globulin 2.5 Albumin/Globulin Ratio 1.6 Lipase 75 Radiography Diagnostic Testing: Clinical Impression(s) from Imaging Studies Abdomen/Pelvis CT 05/30/25 02:03 IMPRESSION: Mild left pleural effusion, increased. Increased passive atelectatic airspace disease in the left lower lobe. Mildly distended gallbladder. Well-defined 1 cm simple cyst in the right hepatic lobe. Diffuse thickening of the stomach suggestive of gastritis. IVC filter is noted. Left renal simple cyst measuring 1 cm. Mild osteopenia. Diffuse spondylosis. Mild osteopenia. Unremarkable metallic prostheses of the hips. Reading Location: [place] [address] Chest X-Ray 05/30/25 02:40 IMPRESSION: No evidence for acute abnormality. Reading Location: [place] [address] Rhythm Strip Rhythm Strip: Sinus Rhythm Rate: 80 Ectopy: None EKG Initial EKG: Attestation: I personally reviewed and interpreted this EKG as follows: Interpretation: Sinus Rhythm and No Acute Injury Pattern Comments: Nml axis & intervals; nml EKG Management Discussion w/another healthcare provider: Hospitalist ([facility]), Nurse Orthopedic (cardiology Vania ([facility])) and Other (see MDM) Discharge Plan Triage Chief Complaint: Chest Pain ED Provider: Deandre Daniels Dx/Rx/DC Orders Clinical Impression: Chest pain, Elevated troponin, Anticoagulated on apixaban, Malignant melanoma of left upper extremity, Acute epigastric pain Prescriptions: No Action atorvastatin 40 mg tablet 40 mg PO DAILY melatonin 3 mg tablet 3 mg PO HS PRN (Reason: sleep) tizanidine 4 mg capsule 4 mg PO Q8H PRN (Reason: muscle spasticity) cholecalciferol (vitamin D3) 50 mcg (2,000 unit) capsule 50 mcg PO QDAY amlodipine 5 mg tablet 5 mg PO DAILY prednisone 5 mg tablet 5 mg PO DAILY Qty: 100 3RF Patient Comments: TAKING 10 MG DAILY IF SICK Rx Instructions: double dose for fever/acute illness metoprolol succinate 50 MG tablet 50 mg PO DAILY Qty: 0 0RF Rx Instructions: Hold if heart rate less than 60/min acetaminophen 500 mg Tablet 1,000 mg PO Q6H PRN PRN (Reason: Pain Score 1-5) Qty: 0 0RF Eliquis 5 mg Tablet 5 mg PO BID 30 Days Qty: 60 0RF Patient Comments: HOLD 7 DAYS PRIOR TO PROCEDURE PER pantoprazole 40 mg Tablet,Delayed Release (Dr/Ec) 40 mg PO DAILY Qty: 30 0RF ondansetron HCl 8 mg tablet 8 mg PO Q8H PRN (Reason: nausea and vomiting) Patient Comments: take 1 tablet by mouth every 8 hours if needed for nausea and vomiting dicyclomine 10 mg capsule 10 mg PO BID PRN (Reason: abdominal pain) ibuprofen [Advil] 200 mg tablet 200 mg PO TID PRN (Reason: pain) diphenoxylate-atropine [Lomotil] 2.5-0.025 mg tablet 1 tab PO QHS PRN (Reason: diarrhea) lisinopril 40 mg tablet 20 mg PO DAILY Patient Comments: changed from 40mg to20mg about a month ago Primary Care Provider: Gary Merrill Referrals: Gary Merrill MD [Primary Care Provider, Family Practice] Print Language: Ivorian Disposition Disposition: Acute Care Hospital Discharge Location: [facility]
[2025-05-30 02:32] LABS: Hematocrit 35.1 % (37-47); Hemoglobin 11.1 g/dL (12.0-15.0); Immature Granulocytes Count 0.130 X10^3/uL (0.0-0.0); Mean Corp Hgb Conc 31.6 g/dL (32-36); Mean Corpuscular Volume 86.5 fL (81-99); Mean Platelet Vol. 9.7 fl (6.2-12.0); NRBC Flagged by Analyzer 0.3 % (0-5); Platelet Count 270 K/mm3 (150-450); RBC Distribution Width CV 13.4 % (11.6-14.6); RBC Distribution Width SD 41.5 fl (35.1-43.9); Red Blood Count 4.06 M/mm3 (4.2-5.4); White Blood Count 6.0 K/mm3 (4.4-11.0)
--- NOTE | 2025-05-30 02:40 | RAD_ITS ---
PROCEDURE: CHEST 1 VIEW (PORTABLE) 05/30/2025 REASON FOR EXAM: CHEST PAIN TECHNIQUE: Frontal view of the chest. COMPARISON: 02/24/2025. FINDINGS: The lungs are expanded. There is no demonstrated parenchymal abnormality. There is no demonstrated pleural abnormality. Normal heart and pericardium. Normal mediastinum and francine. Normal visualized pulmonary arteries. Normal visualized aortic arch and descending thoracic aorta. Normal visualized thoracic spine. Normal visualized ribs, clavicles, and shoulders. There is no demonstrated abnormality of the visualized soft tissue structures of the upper abdomen. RAD/Chest 1 View (Portable) IMPRESSION: No evidence for acute abnormality. Reading Location: [place]
[2025-05-30 02:41] LABS: Lipase 75 U/L (13-75)
[2025-05-30 03:29] LABS: AST(SGOT) 69 U/L (<=31); Alanine Aminotransfer ALT/SGPT 48 U/L (<=34); Albumin, Serum 3.9 g/dL (3.4-4.8); Alkaline Phosphatase 78 U/L (35-104); Anion Gap 14 (5-15); BUN 18 mg/dL (4-19); BUN/Creat Ratio 26.6 RATIO (10-20); Calcium,Total 8.7 mg/dL (7.6-11.0); Carbon Dioxide 22.3 mmol/L (21.0-32.0); Chloride 100 mmol/L (98-108); Estimated Creatinine Clearance 64.28 ml/min (50-250); Globulin 2.5 g/dL (2.2-4.2); Glucose 97 mg/dL (70-99); Potassium 3.6 mmol/L (3.3-5.1); Troponin T High Sensitivity 62 ng/L (<=14)
[2025-05-30 04:49] LABS: Troponin T High Sens 2 HR 61 ng/L (<=14)
[2025-05-30 07:08] LABS: Troponin T High Sens 4 HR 59 ng/L (<=14)
--- NOTE | 2025-05-30 07:25 | PCM.HP.STD ---
[facility] Hospital Date of Admission: 05/30/25 Date of Service: 05/30/25 Chief Complaint: chest pain HPI Narrative MISTI HUERTA, is a 79 F with a PMH as outlined including malignant melanoma who presents via the ED on 05/30/2025 with a complaint of chest pain. She was discharged from [facility] just yesterday after being admitted there for 10 days for pericardial effusion [facility] Medical History Elevated troponin Hypertension History of Holter monitoring Hx of malignant carcinoid tumor Weakness Chronic pain Obesity (BMI 30.0-34.9) History of syncope Generalized abdominal pain Wears glasses Arthritis Neuropathy History of pain when walking History of echocardiogram Cardiology follow-up encounter History of atrial fibrillation Syncopal episodes Metastatic melanoma Duodenal mass Post-menopausal History of steroid therapy Anemia History of immunosuppression therapy Seizures Adrenal insufficiency 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 Bilateral pulmonary embolism Pulmonary emboli Left leg DVT Anticoagulated Former smoker Mild cognitive impairment COVID-19 Polyneuropathy Essential hypertension GERD (gastroesophageal reflux disease) Hyperlipidemia Home Medications ?Medication ?Instructions ?Recorded ?Last Taken ?Type metoprolol succinate 50 mg 50 mg PO DAILY heart rate ##0 08/15/20 02/24/25 Rx tablet,extended release 24 hr atorvastatin 40 mg tablet 40 mg PO DAILY cholesterol 09/24/20 02/23/25 History acetaminophen 500 mg tablet 1,000 mg (2 x 500 mg) PO Q6H PRN 07/27/23 10/07/24 07:20 Rx PRN Pain Score 1-5 #0 tabs apixaban 5 mg tablet (Eliquis) 5 mg PO BID blood thinner 30 days 07/27/23 02/24/25 Rx #60 tabs pantoprazole 40 mg tablet,delayed 40 mg PO DAILY #30 tabs 08/29/23 02/24/25 Rx release melatonin 3 mg tablet 3 mg PO HS PRN sleep 10/18/23 02/23/25 History ondansetron HCl 8 mg tablet 8 mg PO Q8H PRN nausea and vomiting 11/02/23 Unknown History tizanidine 4 mg capsule 4 mg PO Q8H PRN muscle spasticity 03/27/24 Unknown History lisinopril 40 mg tablet 20 mg PO DAILY 01/22/25 02/23/25 History dicyclomine 10 mg capsule 10 mg PO BID PRN abdominal pain 01/28/25 Unknown History diphenoxylate-atropine 2.5 1 tab PO QHS PRN diarrhea 01/28/25 Unknown History mg-0.025 mg tablet (Lomotil) ibuprofen 200 mg tablet (Advil) 200 mg PO TID PRN pain 01/28/25 Unknown History amlodipine 5 mg tablet 5 mg PO DAILY 03/27/25 Unknown History cholecalciferol (vitamin D3) 50 50 mcg PO QDAY 03/27/25 Unknown History mcg (2,000 unit) capsule prednisone 5 mg tablet 5 mg PO DAILY #100 tabs 03/27/25 Unknown Rx Allergy/AdvReac Type Severity Reaction Status Date / Time Sulfa (Sulfonamide Allergy Severe Swelling Verified 05/01/25 14:58 Antibiotics) amoxicillin AdvReac Severe Diarrhea Verified 05/01/25 14:58 sulfamethoxazole (From AdvReac Severe Anaphylaxis Verified 05/01/25 14:58 Bactrim) trimethoprim (From Bactrim) AdvReac Severe Swelling Verified 05/01/25 14:58 Family History Brother Alcoholism Asthma Myocardial infarction, Onset Age: 52 Seizures Skin cancer Sister CVA (cerebral vascular accident) Asthma Grandfather Asthma Father Myocardial infarction, Onset Age: 46 Had at age 46 & 62 Mother Myocardial infarction, Onset Age: 82 Surgical History Hx of surgical procedure History of total left hip replacement History of amputation of finger History of right hip replacement History of cataract surgery History of eye surgery Social History household members: spouse Smoking Status: Former smoker Tobacco: How many years used: 30 how long ago did patient quit smokin years ago second hand exposure: No alcohol intake: current alcohol intake frequency: holidays/special occasions only Alcohol type: wine substance use type: does not use amy/christianity: None seatbelt use: always Vital Signs Vital Signs Vital Signs: 05/30/25 01:49 05/30/25 02:15 05/30/25 02:48 Temperature 98.2 F Temperature Source Oral Pulse Rate 83 74 Respiratory Rate 16 16 Blood Pressure 176/87 H 184/78 H Blood Pressure Mean 116 113 Pulse Ox 99 97 97 Oxygen Delivery Method Room Air Room Air 05/30/25 03:00 05/30/25 04:00 05/30/25 04:52 Temperature Temperature Source Pulse Rate 73 80 72 Respiratory Rate 16 16 16 Blood Pressure 168/76 H 154/74 H 183/79 H Blood Pressure Mean 106 100 113 Pulse Ox 93 98 97 Oxygen Delivery Method Room Air Room Air Room Air 05/30/25 06:00 05/30/25 06:52 Temperature Temperature Source Pulse Rate 75 70 Respiratory Rate 16 16 Blood Pressure 150/69 H 186/74 H Blood Pressure Mean 96 111 Pulse Ox 98 98 Oxygen Delivery Method Room Air Room Air Weight Weight: 184 lb 15.485 oz Body Mass Index (BMI) 29.8 Results Lab / Micro Data 05/30/25 02:13 05/30/25 02:13 Labs: Laboratory Results - last 24 hr 05/30/25 02:13: WBC 6.0, RBC 4.06 L, Hgb 11.1 L, Hct 35.1 L, MCV 86.5, MCH 27.3, MCHC 31.6 L, RDW Std Deviation 41.5, RDW Coeff of [place] 13.4, Plt Count 270, MPV 9.7, Immature Gran % (Auto) 2.200 H, Neut % (Auto) 68.5, Lymph % (Auto) 16.5 L, [place] % (Auto) 12.0 H, Eos % (Auto) 0.5, Baso % (Auto) 0.3, Absolute Neuts (auto) 4.1, Absolute Lymphs (auto) 0.99, Nucleated RBC % 0.3, Sodium 137, Potassium 3.6, Chloride 100, Carbon Dioxide 22.3, Anion Gap 14, BUN 18, Creatinine 0.69 L, Estim Creat Clear Calc 64.28, Est GFR (MDRD) Non-Af 89, BUN/Creatinine Ratio 26.6 H, Glucose 97, Calcium 8.7, Total Bilirubin 0.46, AST 69 H, ALT 48 H, Alkaline Phosphatase 78, Troponin T High Sens 62 H* D, Total Protein 6.4, Albumin 3.9, Globulin 2.5, Albumin/Globulin Ratio 1.6, Lipase 75 05/30/25 04:03: Troponin T Hi Sens 2 Hr 61 H* 05/30/25 06:18: Troponin T Hi Sens 4Hr 59 H* Rhythm Strip Rhythm Strip: Sinus Rhythm Rate: 80 Ectopy: None Imaging Radiology Impression Abdomen/Pelvis CT 05/30/25 02:03 IMPRESSION: Mild left pleural effusion, increased. Increased passive atelectatic airspace disease in the left lower lobe. Mildly distended gallbladder. Well-defined 1 cm simple cyst in the right hepatic lobe. Diffuse thickening of the stomach suggestive of gastritis. IVC filter is noted. Left renal simple cyst measuring 1 cm. Mild osteopenia. Diffuse spondylosis. Mild osteopenia. Unremarkable metallic prostheses of the hips. Reading Location: [place] [address] Chest X-Ray 05/30/25 02:40 IMPRESSION: No evidence for acute abnormality. Reading Location: [place] [address]
[2025-05-30] MEDS: APIXABAN 5 MG TABLET PO (09:40)
== END 2025-05-30 10:29 | disposition short-term general hospital (02) ==
PROVIDERS: Emergency Provider Emergency Medicine; PCP Family Medicine; Visit Provider Emergency Medicine
DX: R07.9 Chest pain, unspecified (principal); C43.62 Malignant melanoma of left upper limb, including shoulder; R10.13 Epigastric pain; E78.5 Hyperlipidemia, unspecified; Z80.8 Family history of malignant neoplasm of other organs or systems; R79.89 Other specified abnormal findings of blood chemistry; Z86.718 Personal history of other venous thrombosis and embolism; Z87.891 Personal history of nicotine dependence; M79.602 Pain in left arm; Z86.711 Personal history of pulmonary embolism; I10 Essential (primary) hypertension; Z86.16 Personal history of COVID-19
CPT/HCPCS: 71045; 74177; 80053; 83690; 84484; 85025; 93005; 96374; 96375; 96376; 99285; Q9967; A4216; J2405

== ENCOUNTER 2025-06-10 01:10 | Emergency (ER) | payer MEDICARE, OTHER, SELFPAY ==
[2025-06-10] VITALS (25 sets, daily range): BP systolic 79–119; BP diastolic 41–78; PULSE 81–142; RESP 16–18; TEMP 36.4; O2SAT 88–100; BMI 29.4
--- NOTE | 2025-06-10 01:28 | CT_ITS ---
PROCEDURE: ABDOMEN/PELVIS W IV CONT ONLY 06/09/2025 REASON FOR EXAM: ABD PAIN, DIARRHEA TECHNIQUE: Procedure Code: [id number] Modality: CT Procedure: ABDOMEN/PELVIS W IV CONT ONLY Coronal and Sagittal reconstruction series were provided. CONTRAST: VOLUME: mL One or more dose reduction techniques were used (e.g., Automated exposure control, adjustment of the mA and/or kV according to patient size, use of iterative reconstruction technique. RADIATION DOSE SUMMARY: DLP: 2933 mGycm COMPARISON: 05/30/2025 FINDINGS: Please see concurrent CT a chest for lung base evaluation. The liver, spleen, pancreas, and both adrenal glands demonstrate no acute findings. Stable 1 cm cyst within the right hepatic lobe. The gallbladder is unremarkable. The stomach is unremarkable. The small bowel loops are not dilated. The appendix is normal. No colonic obstruction. Extensive colonic diverticulosis without focal diverticulitis. Thickened and inflamed sigmoid colon may reflect colitis. There is no free air or significant free fluid. Scattered small cysts within bilateral kidneys. Otherwise unremarkable kidneys without obstructive uropathy. The urinary bladder is partially distended. The pelvic structures are intact. There is no solid pelvic mass. No significant lymphadenopathy. The aorta and IVC demonstrate no acute findings. IVC filter appears extraluminal, grossly unchanged. Moderate atherosclerosis of the abdominal aorta. Visualized osseous structures demonstrate no acute abnormality. Bilateral hip prosthesis with metallic streak artifacts limited evaluation of the lower pelvis... CT/Abdomen/Pelvis W IV Cont ONLY IMPRESSION: Thickened and inflamed sigmoid colon may reflect colitis. Extensive colonic diverticulosis without focal diverticulitis. Bilateral hip prosthesis with extensive streak artifact limited evaluation of t he lower pelvis. Reading Location: [id number]
--- NOTE | 2025-06-10 01:28 | EKG12_ITS ---
Test Reason : DYSRHYTHMIA Blood Pressure : */* mmHG Vent. Rate : 138 BPM Atrial Rate : 138 BPM P-R Int : 146 ms QRS Dur : 74 ms QT Int : 280 ms P-R-T Axes : 52 85 47 degrees QTcB Int : 424 ms Sinus tachycardia Otherwise normal ECG Confirmed by AMADA HECTOR, JERROD ([id number]), scientific publications editor GAVINO ZEPEDA ([id number]) on 06/11/2025 9:58:38 AM Referred By: ER Confirmed By: JERROD YBARRA MD
--- NOTE | 2025-06-10 01:28 | CT_ITS ---
PROCEDURE: CTA CHEST W/WO CONTRAST 06/09/2025 REASON FOR EXAM: CANCER, PRE SYNCOPE, TACHY, RULE OUT PE TECHNIQUE: Procedure Code: CTCTACHWW Modality: CT Procedure: CTA CHEST W/WO CONTRAST Multiplanar Sagittal and Coronal images were obtained. CONTRAST: 100 mL of Isovue 370 One or more dose reduction techniques were used (e.g., Automated exposure control, adjustment of the mA and/or kV according to patient size, use of iterative reconstruction technique). RADIATION DOSE SUMMARY: DLP: 2932 mGycm COMPARISON: None FINDINGS: PULMONARY ARTERIES: Limited evaluation due to motion artifact and contrast bolus/timing. Evaluation of segmental and subsegmental branches are incomplete due to this limitation. No acute pulmonary emboli within the main or lobar branches. LUNGS AND PLEURA: No consolidations. mild pulmonary edema. No mass or nodule. Trace left base effusion. No pneumothorax. MEDIASTINUM: No lymphadenopathy or mass. Moderate pericardial effusion. Mild coronary atherosclerosis. The aorta shows no acute findings. [id number] thoracic aortic atherosclerosis. The pulmonary trunk, and branches of the vessels in the mediastinum are within normal limits. SUPRACLAVICULAR AND AXILLARY: No abnormalities seen in these regions. No mass or significant lymphadenopathy. UPPER ABDOMEN: The visualized upper abdomen is unremarkable. BONES AND SOFT TISSUES: The ribs are unremarkable. The visualized spine shows no significant acute findings. No focal bony mass lesions noted. The subcutaneous soft tissues are unremarkable. CT/CTA Chest W/WO Contrast IMPRESSION: Limited evaluation due to motion artifact and contrast bolus/timing. Evaluation of segmental and subsegmental branches are incomplete due to this li mitation. No acute pulmonary emboli within the main or lobar branches. Moderate pericardial effusion. No consolidations. mild pulmonary edema. Trace left base effusion. Reading Location: [id number]
--- NOTE | 2025-06-10 01:30 | EX.ED.DYSGE1 ---
HPI History of Present Illness Chief Complaint: Syncope Narrative Narrative: Patient is a 79-year-old female presenting to the emergency department for abdominal pain, diarrhea and near syncope. Patient has a past medical history of melanoma, recently was admitted at [facility] for an isolated limb infusion of melanoma on her left arm. She was discharged on 05/30 after a 9 to 10-day stay. During that time it was complicated by circulatory shock and found to have a pericardial effusion which was drained via cardiac cardiocentesis and drain in the [employer]. She is on immunotherapy with Keytruda. She states today she developed diffuse abdominal pain and then had multiple episodes of diarrhea. She is unsure if it was bloody. She states that while she was on the toilet she got lightheaded and her helped her to the ground. She did not actually lose consciousness. She is on Eliquis. She did not fall. She did not hit her head. She denies recent fever or chills. Denies chest pain, shortness of breath, dysuria or hematuria. PFSH [facility] Medical History Elevated troponin Hypertension History of Holter monitoring Hx of malignant carcinoid tumor Weakness Chronic pain Obesity (BMI 30.0-34.9) History of syncope Generalized abdominal pain Wears glasses Arthritis Neuropathy History of pain when walking History of echocardiogram Cardiology follow-up encounter History of atrial fibrillation Syncopal episodes Metastatic melanoma Duodenal mass Post-menopausal History of steroid therapy Anemia History of immunosuppression therapy Seizures Adrenal insufficiency 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 Bilateral pulmonary embolism Pulmonary emboli Left leg DVT Anticoagulated Former smoker Mild cognitive impairment COVID-19 Polyneuropathy Essential hypertension GERD (gastroesophageal reflux disease) Hyperlipidemia Home Medications ?Medication ?Instructions ?Recorded ?Last Taken ?Type metoprolol succinate 50 mg 50 mg PO DAILY heart rate ##0 08/15/20 02/24/25 Rx tablet,extended release 24 hr atorvastatin 40 mg tablet 40 mg PO DAILY cholesterol 09/24/20 02/23/25 History acetaminophen 500 mg tablet 1,000 mg (2 x 500 mg) PO Q6H PRN 07/27/23 10/07/24 07:20 Rx PRN Pain Score 1-5 #0 tabs apixaban 5 mg tablet (Eliquis) 5 mg PO BID blood thinner 30 days 07/27/23 02/24/25 Rx #60 tabs pantoprazole 40 mg tablet,delayed 40 mg PO DAILY #30 tabs 08/29/23 02/24/25 Rx release melatonin 3 mg tablet 3 mg PO HS PRN sleep 10/18/23 02/23/25 History ondansetron HCl 8 mg tablet 8 mg PO Q8H PRN nausea and vomiting 11/02/23 Unknown History tizanidine 4 mg capsule 4 mg PO Q8H PRN muscle spasticity 03/27/24 Unknown History lisinopril 40 mg tablet 20 mg PO DAILY 01/22/25 02/23/25 History dicyclomine 10 mg capsule 10 mg PO BID PRN abdominal pain 01/28/25 Unknown History diphenoxylate-atropine 2.5 1 tab PO QHS PRN diarrhea 01/28/25 Unknown History mg-0.025 mg tablet (Lomotil) ibuprofen 200 mg tablet (Advil) 200 mg PO TID PRN pain 01/28/25 Unknown History amlodipine 5 mg tablet 5 mg PO DAILY 03/27/25 Unknown History cholecalciferol (vitamin D3) 50 50 mcg PO QDAY 03/27/25 Unknown History mcg (2,000 unit) capsule prednisone 5 mg tablet 5 mg PO DAILY #100 tabs 03/27/25 Unknown Rx albuterol sulfate 90 mcg/actuation 2 puff inhalation dyspnea 06/10/25 Unknown History aerosol inhaler azithromycin 250 mg tablet 500 mg PO DAILY 06/10/25 Unknown History cyclobenzaprine 5 mg tablet 5 mg PO Q8H PRN PRN pain 06/10/25 Unknown History Allergy/AdvReac Type Severity Reaction Status Date / Time Sulfa (Sulfonamide Allergy Severe Swelling Verified 06/10/25 01:12 Antibiotics) amoxicillin AdvReac Severe Diarrhea Verified 06/10/25 01:12 sulfamethoxazole (From AdvReac Severe Anaphylaxis Verified 06/10/25 01:12 Bactrim) trimethoprim (From Bactrim) AdvReac Severe Swelling Verified 06/10/25 01:12 Family History Brother Alcoholism Asthma Myocardial infarction, Onset Age: 52 Seizures Skin cancer Sister CVA (cerebral vascular accident) Asthma Grandfather Asthma Father Myocardial infarction, Onset Age: 46 Had at age 46 & 62 Mother Myocardial infarction, Onset Age: 82 Surgical History Hx of surgical procedure History of total left hip replacement History of amputation of finger History of right hip replacement History of cataract surgery History of eye surgery Social History household members: spouse Smoking Status: Former smoker Tobacco: How many years used: 30 how long ago did patient quit smokin years ago second hand exposure: No alcohol intake: current alcohol intake frequency: holidays/special occasions only Alcohol type: wine substance use type: does not use amy/church: None seatbelt use: always ROS ROS ED ROS Narrative see HPI EXAM Physical Exam Narrative Exam Narrative: Vital signs: Reviewed General: Alert and orientedx3. No acute distress. Chronically ill appearing. HEENT: Head is normocephalic and atraumatic, sinuses nontender, pupils equal round and reactive. Nares are patent. Oropharynx and throat exams normal. Neck: Supple without lymphadenopathy nontender Cardiovascular: Tachycardic rate and regular rhythm, no murmurs. No rubs or gallops. Normal S1 and S2 Respiratory: Clear to auscultation bilaterally. No wheezes, rales, rhonchi Abdominal: Soft and mild diffuse tenderness to palpation throughout. Normal bowel sounds. No guarding or rebound. Nonsurgical abdomen Extremities: No tenderness. No bruising. Normal range of motion. Normal sensation. Skin: No rash or redness. Neurological: Cranial nerves II through XII are grossly intact. Normal strength and sensation. Normal cerebellar function The rest of the physical exam is unremarkable Const Vital Signs: 06/10/25 01:12 06/10/25 01:12 06/10/25 01:17 Temperature 97.6 F L 97.6 F L Temperature Source Oral Oral Pulse Rate 142 H 142 H Respiratory Rate 17 17 Respiratory Effort Normal Respiratory Pattern Blood Pressure 81/48 L 100/41 L Blood Pressure Mean 59 60 Pulse Ox 93 94 Oxygen Delivery Method Room Air Room Air Oxygen Flow Rate (L/min) 06/10/25 01:17 06/10/25 01:25 06/10/25 02:17 Temperature 97.6 F L Temperature Source Oral Pulse Rate 115 H Respiratory Rate 18 Respiratory Effort Normal Respiratory Pattern Tachypnea Blood Pressure 98/50 L 108/48 L Blood Pressure Mean 66 68 Pulse Ox 99 Oxygen Delivery Method Room Air Oxygen Flow Rate (L/min) 06/10/25 02:34 06/10/25 03:00 06/10/25 03:22 Temperature 97.6 F L Temperature Source Oral Pulse Rate 114 H 110 H Respiratory Rate 17 16 Respiratory Effort Respiratory Pattern Blood Pressure 119/56 L 119/56 L Blood Pressure Mean 77 77 Pulse Ox 93 94 88 Oxygen Delivery Method Room Air Room Air Room Air Oxygen Flow Rate (L/min) 06/10/25 03:22 06/10/25 03:24 Temperature 97.6 F L Temperature Source Pulse Rate 108 H Respiratory Rate 18 Respiratory Effort Respiratory Pattern Blood Pressure 105/78 Blood Pressure Mean 87 Pulse Ox 99 99 Oxygen Delivery Method Nasal Cannula Oxygen Flow Rate (L/min) 2 MDM MDM MDM Narrative Medical decision making narrative: Patient is a 79-year-old female presenting to the emergency department for abdominal pain, diarrhea and near syncope. Patient was seen and examined. Patient is tachycardic in the 140s. She is hypotensive in the 90s over 50s. She is afebrile. Saturating 94% on room air. arrived at bedside after initial history was taken. He states that the patient had multiple episodes of diarrhea this evening. He was standing in the bathroom with her and she stated she felt lightheaded and then slumped over. He states that she did lose consciousness. He then lowered her to the ground. She did not strike her head. She then had multiple more episodes of diarrhea. Differential includes but is not limited to: Hypovolemia secondary to diarrhea, colitis, appendicitis, cholecystitis, UTI, sepsis, ACS, PE, cardiac tamponade, spontaneous intracranial bleed. Less likely intracranial pathology given her neurologic exam is unremarkable. Awake and alert. Fluid bolus started. Patient given Zofran for symptomatic control. CTA of the chest ordered to rule out pulmonary embolism. CT of the abdomen pelvis ordered given patient's abdominal pain and diarrhea. EKG shows sinus tachycardia no dysrhythmia. After chart was reviewed, history of pericardial effusion requiring pericardiocentesis I did do a bedside [id number] echo. There is a small pericardial effusion however nothing large noted on limited exam. CBC with no significant leukocytosis. Chronic anemia of 10.6. On chart review 11 days ago it was 11.1. CMP with bicarb of 19.9 and anion gap of 19. Explained by her diarrhea. Slightly elevated alk phos and AST however mild transaminitis was seen previously. Lactate elevated at 3.3. Lipase within normal limits. Urinalysis with 2+ bacteria and mild leukocyte esterase however no nitrates and no WBCs, I do not think this is a UTI. CT brain with no intracranial abnormalities. CTA of the chest shows limited evaluation due to motion artifact and contrast bolus/timing. Evaluation of segmental and subsegmental branches are incomplete due to this limitation. No acute pulmonary emboli within the main or lobar branches. Moderate pericardial effusion. No consolidations. Mild pulmonary edema. Trace left base effusion. CT abdomen showed thickened and inflamed sigmoid colon may reflect colitis. Extensive colonic diverticulosis without focal diverticulitis. Zosyn ordered. Troponin of 119, compared to priors in the high 60s on recent ER visit. With elevated lactate and hypotension initially, likely type 2 NSTEMI. BNP within normal limits. Given patients hypotension, tachycardia and elevated lactate with syncope I do think she requires admission for further fluid resuscitation and abx. BP more stable after fluids, 105/78. HR improved to 108. Patient and agreeable. Hospitalist paged for admission. Accepted to Dr. Eldridge on PCU for further management. Clinical impression: Diarrhea chronic anemia Elevated lactate Colitis History & Record Review Discussion w/independent historian: Patient and Family Additional record(s) reviewed:: Prior ED visit and Prior labs Lab Data Attestation: I reviewed the patient's lab results. Labs: Laboratory Results - last 24 hr 06/10/25 06/10/25 06/10/25 01:04 01:39 01:44 WBC 5.7 RBC 3.96 L Hgb 10.6 L Hct 35.1 L MCV 88.6 MCH 26.8 L MCHC 30.2 L RDW Std Deviation 43.8 RDW Coeff of Lynn 13.5 Plt Count 188 MPV 10.0 Immature Gran % (Auto) 0.400 Neut % (Auto) 92.9 H Lymph % (Auto) 5.8 L [place] % (Auto) 0.5 Eos % (Auto) 0.2 Baso % (Auto) 0.2 Absolute Neuts (auto) 5.3 Absolute Lymphs (auto) 0.33 L Nucleated RBC % 0 Sodium 138 Potassium 4.3 Chloride 99 Carbon Dioxide 19.9 L Anion Gap 19 H BUN 16 Creatinine 1.04 Estim Creat Clear Calc 49.07 L Est GFR (MDRD) Non-Af 55 L BUN/Creatinine Ratio 15.3 Glucose 140 H Lactic Acid 3.3 H* Calcium 9.3 Magnesium 1.7 Total Bilirubin 0.35 AST 33 H ALT 28 Alkaline Phosphatase 115 H Troponin T High Sens 119 H* D NT pro BNP II 1014 Total Protein 6.8 Albumin 3.9 Globulin 2.9 Albumin/Globulin Ratio 1.4 Lipase 69 Urine Color Urine Clarity Urine pH Ur Specific [place] Urine Protein Urine Glucose (UA) Urine Ketones Urine Occult Blood Urine Nitrite Urine Bilirubin Urine Urobilinogen Ur Leukocyte Esterase Urine RBC Urine WBC Ur Squamous Epith Cells Amorphous Sediment Urine Bacteria Hyaline Casts Coarse Granular Casts Urine Mucus POC Glucose 102 06/10/25 02:14 WBC RBC Hgb Hct MCV MCH MCHC RDW Std Deviation RDW Coeff of [place] Plt Count MPV Immature Gran % (Auto) Neut % (Auto) Lymph % (Auto) [place] % (Auto) Eos % (Auto) Baso % (Auto) Absolute Neuts (auto) Absolute Lymphs (auto) Nucleated RBC % Sodium Potassium Chloride Carbon Dioxide Anion Gap BUN Creatinine Estim Creat Clear Calc Est GFR (MDRD) Non-Af BUN/Creatinine Ratio Glucose Lactic Acid Calcium Magnesium Total Bilirubin AST ALT Alkaline Phosphatase Troponin T High Sens NT pro BNP II Total Protein Albumin Globulin Albumin/Globulin Ratio Lipase Urine Color Yellow Urine Clarity Clear Urine pH 6.0 Ur Specific [place] 1.015 Urine Protein 100 H Urine Glucose (UA) Normal Urine Ketones Negative Urine Occult Blood 10 H Urine Nitrite Negative Urine Bilirubin Negative Urine Urobilinogen Normal Ur Leukocyte Esterase 25 H Urine RBC 0-5 SEEN Urine WBC 0-5 SEEN Ur Squamous Epith Cells 5-10 SEEN Amorphous Sediment 1+ Urine Bacteria 2+ Hyaline Casts 5-10 SEEN Coarse Granular Casts 0-5 SEEN Urine Mucus 0 SEEN POC Glucose ABG Data ABG results: ABG 06/10/25 02:02 Specimen Type SUNI Sample Site Not entered VBG pH 7.38 VBG pO2 36 VBG HCO3 9 L VBG Total CO2 10 L VBG O2 Sat (Calc) 71 H VBG Base Excess -16 L POC Mix VBG pCO2 Pt Tmp 15.3 L* O2 Delivery Device Room Air Crit Call To/Read Back Yes Blood Gas Notified Whom Yvette Blood Gas Notified Time 02:03:38 Radiography Diagnostic Testing: Clinical Impression(s) from Imaging Studies Abdomen/Pelvis CT 06/10/25 01:28 IMPRESSION: Thickened and inflamed sigmoid colon may reflect colitis. Extensive colonic diverticulosis without focal diverticulitis. Bilateral hip prosthesis with extensive streak artifact limited evaluation of the lower pelvis. Reading Location: [facility] Chest CTA 06/10/25 01:28 IMPRESSION: Limited evaluation due to motion artifact and contrast bolus/timing. Evaluation of segmental and subsegmental branches are incomplete due to this limitation. No acute pulmonary emboli within the main or lobar branches. Moderate pericardial effusion. No consolidations. mild pulmonary edema. Trace left base effusion. Reading Location: [facility] Brain CT 06/10/25 01:48 IMPRESSION: No acute intracranial process. Reading Location: [facility] Discharge Plan Triage Chief Complaint: Syncope Other Complaint: Palpitations ED Provider: Nataly Crawford Dx/Rx/DC Orders Prescriptions: No Action atorvastatin 40 mg tablet 40 mg PO DAILY melatonin 3 mg tablet 3 mg PO HS PRN (Reason: sleep) tizanidine 4 mg capsule 4 mg PO Q8H PRN (Reason: muscle spasticity) cholecalciferol (vitamin D3) 50 mcg (2,000 unit) capsule 50 mcg PO QDAY amlodipine 5 mg tablet 5 mg PO DAILY prednisone 5 mg tablet 5 mg PO DAILY Qty: 100 3RF Patient Comments: TAKING 10 MG DAILY IF SICK Rx Instructions: double dose for fever/acute illness metoprolol succinate 50 MG tablet 50 mg PO DAILY Qty: 0 0RF Rx Instructions: Hold if heart rate less than 60/min acetaminophen 500 mg Tablet 1,000 mg PO Q6H PRN PRN (Reason: Pain Score 1-5) Qty: 0 0RF Eliquis 5 mg Tablet 5 mg PO BID 30 Days Qty: 60 0RF Patient Comments: HOLD 7 DAYS PRIOR TO PROCEDURE PER pantoprazole 40 mg Tablet,Delayed Release (Dr/Ec) 40 mg PO DAILY Qty: 30 0RF ondansetron HCl 8 mg tablet 8 mg PO Q8H PRN (Reason: nausea and vomiting) Patient Comments: take 1 tablet by mouth every 8 hours if needed for nausea and vomiting dicyclomine 10 mg capsule 10 mg PO BID PRN (Reason: abdominal pain) ibuprofen [Advil] 200 mg tablet 200 mg PO TID PRN (Reason: pain) diphenoxylate-atropine [Lomotil] 2.5-0.025 mg tablet 1 tab PO QHS PRN (Reason: diarrhea) azithromycin 250 mg tablet 500 mg PO DAILY albuterol sulfate 90 mcg/actuation HFA aerosol inhaler 2 puff INHALATION cyclobenzaprine 5 mg tablet 5 mg PO Q8H PRN PRN (Reason: pain) lisinopril 40 mg tablet 20 mg PO DAILY Patient Comments: changed from 40mg to20mg about a month ago Primary Care Provider: Gary Merrill Referrals: Gary Merrill MD [Primary Care Provider, Family Practice] Print Language: Setswana
[2025-06-10] MEDS: 0.9% Normal Saline (1000mL) 1,000 ML 2000 ML IV (01:34)
[2025-06-10 01:40] LABS: Hematocrit 35.1 % (37-47); Hemoglobin 10.6 g/dL (12.0-15.0); Immature Granulocytes Count 0.020 X10^3/uL (0.0-0.0); Mean Corp Hgb Conc 30.2 g/dL (32-36); Mean Corpuscular Volume 88.6 fL (81-99); Mean Platelet Vol. 10.0 fl (6.2-12.0); NRBC Flagged by Analyzer 0 % (0-5); POSITIVE DIFFERENTIAL YES; Platelet Count 188 K/mm3 (150-450); RBC Distribution Width CV 13.5 % (11.6-14.6); RBC Distribution Width SD 43.8 fl (35.1-43.9); Red Blood Count 3.96 M/mm3 (4.2-5.4); White Blood Count 5.7 K/mm3 (4.4-11.0)
--- NOTE | 2025-06-10 01:48 | CT_ITS ---
PROCEDURE: BRAIN/HEAD WITHOUT CONTRAST 06/09/2025 REASON FOR EXAM: ON ELIQUIS, SYNCOPE TECHNIQUE: Procedure Code: CTBR Modality: CT Procedure: BRAIN/HEAD WITHOUT CONTRAST Coronal and Sagittal reconstruction series were provided. One or more dose reduction techniques were used (e.g., Automated exposure control, adjustment of the mA and/or kV according to patient size, use of iterative reconstruction technique. RADIATION DOSE SUMMARY: DLP: 2932 mGycm COMPARISON: 01/23/2025 FINDINGS: There is no acute infarct, intracranial hemorrhage, or mass effect. There is no hydrocephalus or significant midline shift. There is moderate chronic microvascular ischemic changes and moderate parenchymal volume loss. No acute, depressed calvarial fractures. No large scalp hematomas. The paranasal sinuses are clear. Bilateral lens surgeries. CT/Brain/Head without Contrast IMPRESSION: No acute intracranial process. Reading Location: [id number]
[2025-06-10 02:06] LABS: SITE Not entered; Time Given 02:03:38; VBG BASE EXCESS -16 mmol/L (-1.0-3.5); VBG PO2 36 mmHg (25-40); VBG SO2 71 % (50-70); VBG TCO2 10 mmol/L (23-33)
[2025-06-10 02:14] LABS: AST(SGOT) 33 U/L (<=31); Alanine Aminotransfer ALT/SGPT 28 U/L (<=34); Albumin, Serum 3.9 g/dL (3.4-4.8); Alkaline Phosphatase 115 U/L (35-104); Anion Gap 19 (5-15); BUN 16 mg/dL (4-19); BUN/Creat Ratio 15.3 RATIO (10-20); Calcium,Total 9.3 mg/dL (7.6-11.0); Carbon Dioxide 19.9 mmol/L (21.0-32.0); Chloride 99 mmol/L (98-108); Estimated Creatinine Clearance 49.07 ml/min (50-250); Globulin 2.9 g/dL (2.2-4.2); Glucose 140 mg/dL (70-99); Lipase 69 U/L (13-75); Magnesium 1.7 mg/dL (1.5-2.2); Potassium 4.3 mmol/L (3.3-5.1)
[2025-06-10 02:21] LABS: Mucous, Urine 0 SEEN /hpf (<or=2+)
[2025-06-10 02:38] LABS: Color, Urine Yellow (Yellow); Glucose, Dipstick Normal (Normal); Ketone-Dipstick Negative (Negative); Leukocyte Esterase-Dipstick 25 /ul (Negative); Nitrite-Dipstick Negative (Negative); Occult Blood-Urine 10 /ul (Negative); Protein-Dipstick 100 mg/dl (Negative); Specific Gravity, Urine 1.015 (1.002-1.030); Urine Bilirubin Dipstick Negative (Negative)
[2025-06-10 02:47] LABS: Red Blood Cells-Urine 0-5 SEEN /hpf (0-5); Squamous Epithelial Cells - UA 5-10 SEEN /hpf (5-10)
[2025-06-10] MEDS: Piperacil/Tazobactam 3.375 GM in 0.9% Normal Saline (50mL MB+) 50 ML IV (03:12)
--- NOTE | 2025-06-10 03:25 | PCM.HP.STD ---
[facility] Date of Service: 06/10/25 Chief Complaint: abdominal pain, diarrhea, near syncope [facility] Narrative MISTI HUERTA, is a 79 F with a PMH as outlined who was admitted via the ED with a complaint of abdominal pain, diarrrhea and near syncope. She has a history of melanoma and is on keytruda. She was recently admitted at [facility] for an isolated alvarez infusion of chemotherapy on her left arm. She was discharged on 05/30/2025 after a 9-10 day stay. That hospital stay at [facility] was complicated by circulatory shock and pericardial effusion which was drained by pericardial window. She developed severe generalised abdominal pain on the day of admission and also had several episodes of diarrhea. She said she was on the toilet and started to get lightheaded so her lowered her to the ground. She did not really pass out. She denied any vomiting, fever or chills. Review of systems was otherwise negative. HEr last session of keytruda was May 03. She had a similar event when she was admitted at [facility] a few weeks ago. Vitals in the ED were blood pressure 105/78, pulse rate of 108, respiratory rate of 18 and temperature of 97.6 Fahrenheit. She was saturating at 99% on room air. CBC showed WBC of 5.7 with hemoglobin of 10.6 and platelets of 188. Chemistry showed sodium of 138 with potassium of 4.3 and bicarb of 19.9. Anion gap is 19. Creatinine was 1.04. Lactic acid was 3.3. ALP was mildly elevated at 115 and AST minimally elevated at 33 liver enzymes were otherwise normal. Urinalysis showed 2+ bacteria and no WBC and 25 leukocyte esterase. CTA of the chest showed no evidence of PE and showed moderate pericardial effusion, and showed mild pulmonary edema and no consolidations. CT brain showed no acute intracranial pathology. CT abdomen pelvis showed thickened and inflamed sigmoid colon which may represent colitis and extensive colonic diverticulosis without focal diverticulitis as well as bilateral hip prosthesis. She has been admitted to be managed for acute colitis in the setting of Keytruda use. However at time of my review has been show documentation from [facility] That showed that her large pericardial effusion was completely drained at her last visit. CT now shows moderate pericardial effusion so after discussion with ED doctor decision made to transfer patient to [facility] As her symptoms may be due to impending tamponade from the recurring and enlarging pericardial effusion. [facility] Medical History Elevated troponin Hypertension History of Holter monitoring Hx of malignant carcinoid tumor Weakness Chronic pain Obesity (BMI 30.0-34.9) History of syncope Generalized abdominal pain Wears glasses Arthritis Neuropathy History of pain when walking History of echocardiogram Cardiology follow-up encounter History of atrial fibrillation Syncopal episodes Metastatic melanoma Duodenal mass Post-menopausal History of steroid therapy Anemia History of immunosuppression therapy Seizures Adrenal insufficiency 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 Bilateral pulmonary embolism Pulmonary emboli Left leg DVT Anticoagulated Former smoker Mild cognitive impairment COVID-19 Polyneuropathy Essential hypertension GERD (gastroesophageal reflux disease) Hyperlipidemia Home Medications ?Medication ?Instructions ?Recorded ?Last Taken ?Type metoprolol succinate 50 mg 50 mg PO DAILY heart rate ##0 08/15/20 02/24/25 Rx tablet,extended release 24 hr atorvastatin 40 mg tablet 40 mg PO DAILY cholesterol 09/24/20 02/23/25 History acetaminophen 500 mg tablet 1,000 mg (2 x 500 mg) PO Q6H PRN 07/27/23 10/07/24 07:20 Rx PRN Pain Score 1-5 #0 tabs apixaban 5 mg tablet (Eliquis) 5 mg PO BID blood thinner 30 days 07/27/23 02/24/25 Rx #60 tabs pantoprazole 40 mg tablet,delayed 40 mg PO DAILY #30 tabs 08/29/23 02/24/25 Rx release melatonin 3 mg tablet 3 mg PO HS PRN sleep 10/18/23 02/23/25 History ondansetron HCl 8 mg tablet 8 mg PO Q8H PRN nausea and vomiting 11/02/23 Unknown History tizanidine 4 mg capsule 4 mg PO Q8H PRN muscle spasticity 03/27/24 Unknown History lisinopril 40 mg tablet 20 mg PO DAILY 01/22/25 02/23/25 History dicyclomine 10 mg capsule 10 mg PO BID PRN abdominal pain 01/28/25 Unknown History diphenoxylate-atropine 2.5 1 tab PO QHS PRN diarrhea 01/28/25 Unknown History mg-0.025 mg tablet (Lomotil) ibuprofen 200 mg tablet (Advil) 200 mg PO TID PRN pain 01/28/25 Unknown History amlodipine 5 mg tablet 5 mg PO DAILY 03/27/25 Unknown History cholecalciferol (vitamin D3) 50 50 mcg PO QDAY 03/27/25 Unknown History mcg (2,000 unit) capsule prednisone 5 mg tablet 5 mg PO DAILY #100 tabs 03/27/25 Unknown Rx albuterol sulfate 90 mcg/actuation 2 puff inhalation dyspnea 06/10/25 Unknown History aerosol inhaler azithromycin 250 mg tablet 500 mg PO DAILY 06/10/25 Unknown History cyclobenzaprine 5 mg tablet 5 mg PO Q8H PRN PRN pain 06/10/25 Unknown History Allergy/AdvReac Type Severity Reaction Status Date / Time Sulfa (Sulfonamide Allergy Severe Swelling Verified 06/10/25 01:12 Antibiotics) amoxicillin AdvReac Severe Diarrhea Verified 06/10/25 01:12 sulfamethoxazole (From AdvReac Severe Anaphylaxis Verified 06/10/25 01:12 Bactrim) trimethoprim (From Bactrim) AdvReac Severe Swelling Verified 06/10/25 01:12 Family History Brother Alcoholism Asthma Myocardial infarction, Onset Age: 52 Seizures Skin cancer Sister CVA (cerebral vascular accident) Asthma Grandfather Asthma Father Myocardial infarction, Onset Age: 46 Had at age 46 & 62 Mother Myocardial infarction, Onset Age: 82 Surgical History Hx of surgical procedure History of total left hip replacement History of amputation of finger History of right hip replacement History of cataract surgery History of eye surgery Social History household members: spouse Smoking Status: Former smoker Tobacco: How many years used: 30 how long ago did patient quit smokin years ago second hand exposure: No alcohol intake: current alcohol intake frequency: holidays/special occasions only Alcohol type: wine substance use type: does not use amy/zoroastrian: None seatbelt use: always ROS Constitutional Constitutional: Reports anorexia, fatigue, malaise and weakness; Denies change in weight, chills or fever(s) Eyes Eyes: Denies change in vision ENT HEENT: Denies dysphagia, headache(s) or sore throat Cardiovascular Cardiovascular: Denies chest pain, dyspnea on exertion, edema, lightheadedness, orthopnea, palpitations, paroxysmal nocturnal dyspnea, rapid heart rate or syncope Respiratory/Chest Respiratory/Chest: Denies cough, dyspnea, productive cough, shortness of breath at rest or shortness of breath with exertion Gastrointestinal Gastrointestinal: Reports diarrhea; Denies abdominal pain, constipation, nausea or vomiting Genitourinary Genitourinary: Denies burning urination or dysuria Musculoskeletal Musculoskeletal: Denies arthralgias Neurologic Neurologic: Denies confusion, dizziness, focal weakness, headache(s), numbness, paresthesias, seizures or syncope Psychiatric Psychiatric: Denies anxiety or depression Endocrine Endocrinology: Denies change in body appearance Vital Signs Vital Signs Vital Signs: 06/10/25 01:12 06/10/25 01:12 06/10/25 01:17 Temperature 97.6 F L 97.6 F L Temperature Source Oral Oral Pulse Rate 142 H 142 H Respiratory Rate 17 17 Respiratory Effort Normal Respiratory Pattern Blood Pressure 81/48 L 100/41 L Blood Pressure Mean 59 60 Pulse Ox 93 94 Oxygen Delivery Method Room Air Room Air Oxygen Flow Rate (L/min) 06/10/25 01:17 06/10/25 01:25 06/10/25 02:17 Temperature 97.6 F L Temperature Source Oral Pulse Rate 115 H Respiratory Rate 18 Respiratory Effort Normal Respiratory Pattern Tachypnea Blood Pressure 98/50 L 108/48 L Blood Pressure Mean 66 68 Pulse Ox 99 Oxygen Delivery Method Room Air Oxygen Flow Rate (L/min) 06/10/25 02:34 06/10/25 03:00 06/10/25 03:22 Temperature 97.6 F L Temperature Source Oral Pulse Rate 114 H 110 H Respiratory Rate 17 16 Respiratory Effort Respiratory Pattern Blood Pressure 119/56 L 119/56 L Blood Pressure Mean 77 77 Pulse Ox 93 94 88 Oxygen Delivery Method Room Air Room Air Room Air Oxygen Flow Rate (L/min) 06/10/25 03:22 Temperature Temperature Source Pulse Rate Respiratory Rate Respiratory Effort Respiratory Pattern Blood Pressure Blood Pressure Mean Pulse Ox 99 Oxygen Delivery Method Nasal Cannula Oxygen Flow Rate (L/min) 2 Weight Weight: 182 lb 1.629 oz Body Mass Index (BMI) 29.4 Physical Exam Const alert, oriented x3 and no apparent distress Constitutional Narrative: looks frail and weak General Appearance: cooperative HEENT normocephalic, head/scalp atraumatic and hearing grossly normal bilaterally HEENT Narrative: dry oral mucosa Eyes conjunctivae normal Neck no lymphadenopathy and supple Resp normal respiratory effort, no retractions, no use of accessory muscles and clear to auscultation bilaterally Cardio regular rate, regular rhythm, S1 normal heart sound, S2 normal heart sound and no murmurs Cardio Narrative: heart sounds are muffled and distant GI normal to inspection, nondistended, normoactive bowel sounds and soft to palpation GI Narrative: moderate generalised tenderness, no guarding or rebound tenderness Extremity normal to inspection, full ROM and no clubbing, cyanosis or edema Neuro oriented x3, CN's II-XII intact bilaterally and moves all extremities Neuro Narrative: frail Sensorium / Orientation: awake and alert Psych affect normal Results Lab / Micro Data 06/10/25 01:04 06/10/25 01:04 Labs: Laboratory Results - last 24 hr 06/10/25 01:04: WBC 5.7, RBC 3.96 L, Hgb 10.6 L, Hct 35.1 L, MCV 88.6, MCH 26.8 L, MCHC 30.2 L, RDW Std Deviation 43.8, RDW Coeff of Lynn 13.5, Plt Count 188, MPV 10.0, Immature Gran % (Auto) 0.400, Neut % (Auto) 92.9 H, Lymph % (Auto) 5.8 L, [place] % (Auto) 0.5, Eos % (Auto) 0.2, Baso % (Auto) 0.2, Absolute Neuts (auto) 5.3, Absolute Lymphs (auto) 0.33 L, Nucleated RBC % 0, Sodium 138, Potassium 4.3, Chloride 99, Carbon Dioxide 19.9 L, Anion Gap 19 H, BUN 16, Creatinine 1.04, Estim Creat Clear Calc 49.07 L, Est GFR (MDRD) Non-Af 55 L, BUN/Creatinine Ratio 15.3, Glucose 140 H, Calcium 9.3, Magnesium 1.7, Total Bilirubin 0.35, AST 33 H, ALT 28, Alkaline Phosphatase 115 H, Total Protein 6.8, Albumin 3.9, Globulin 2.9, Albumin/Globulin Ratio 1.4, Lipase 69 06/10/25 01:39: Lactic Acid 3.3 H* 06/10/25 01:44: POC Glucose 102 06/10/25 02:14: Urine Color Yellow, Urine Clarity Clear, Urine pH 6.0, Ur Specific Stark 1.015, Urine Protein 100 H, Urine Glucose (UA) Normal, Urine Ketones Negative, Urine Occult Blood 10 H, Urine Nitrite Negative, Urine Bilirubin Negative, Urine Urobilinogen Normal, Ur Leukocyte Esterase 25 H, Urine RBC 0-5 SEEN, Urine WBC 0-5 SEEN, Ur Squamous Epith Cells 5-10 SEEN, Amorphous Sediment 1+, Urine Bacteria 2+, Hyaline Casts 5-10 SEEN, Coarse Granular Casts 0-5 SEEN, Urine Mucus 0 SEEN Micro: Microbiology 06/10/25 01:39 Mucosa - Nose SARS-CoV-2, Influenza & RSV (PCR) - Final ABG Data ABG results: ABG 06/10/25 02:02 Specimen Type SUNI Sample Site Not entered VBG pH 7.38 VBG pO2 36 VBG HCO3 9 L VBG Total CO2 10 L VBG O2 Sat (Calc) 71 H VBG Base Excess -16 L POC Mix VBG pCO2 Pt Tmp 15.3 L* O2 Delivery Device Room Air Crit Call To/Read Back Yes Blood Gas Notified Whom Yvette Blood Gas Notified Time 02:03:38 Imaging Radiology Impression Abdomen/Pelvis CT 06/10/25 01:28 IMPRESSION: Thickened and inflamed sigmoid colon may reflect colitis. Extensive colonic diverticulosis without focal diverticulitis. Bilateral hip prosthesis with extensive streak artifact limited evaluation of the lower pelvis. Reading Location: [facility] Chest CTA 06/10/25 01:28 IMPRESSION: Limited evaluation due to motion artifact and contrast bolus/timing. Evaluation of segmental and subsegmental branches are incomplete due to this limitation. No acute pulmonary emboli within the main or lobar branches. Moderate pericardial effusion. No consolidations. mild pulmonary edema. Trace left base effusion. Reading Location: [facility] Brain CT 06/10/25 01:48 IMPRESSION: No acute intracranial process. Reading Location: [facility] Assessment & Plan Assessment/Plan (1) Acute diarrhea: PLAN: Plan #Acute colitis possibly due to immunotherapy induced colitis Patient has a history of melanoma of the skin and is on pembrolizumab. Her last dose of pembrolizumab was May 05 thereabouts. Admitted with a complaint of profuse diarrhea which started today. She is also having diffuse abdominal pain. CT of the abdomen and pelvis showed thickened and inflamed sigmoid colon which may represent colitis and extensive colonic diverticulosis without focal diverticulitis. Urinalysis also did show evidence of UTI. Lactic acid was elevated at 3.3 likely due to dehydration from the diarrhea. Will start on IV Solu-Medrol. Due to the UTI we will also start on IV Zosyn which would also cover possible infectious etiology of the colitis. Keep n.p.o. for now. Consult gastroenterology. Hydrate with IV fluid normal saline at 150 cc/h. IV morphine as needed for pain. #Acute hypotension Patient's blood pressure was down in the 70s/30s during my review and would come up to the 80s systolic. Patient's gave me documentation from her most recent admission which showed that her large pericardial effusion was drained completely and she had only trace effusion left afterwards. CT today however shows that she has moderate pericardial effusion. Heart sounds are also muffled. Patient also mildly tachycardic in the low 100s during my review though when she came into the ED her EKG showed heart rate of 138 and was a sinus tachycardia. I am concerned that patient's pericardial effusion has recurred and may actually be the motor driver of her symptoms as she states the diarrhea just occurred today as she had only about 2-3 episodes. I am concerned that her symptoms such as the near syncope which is exactly what happened the last time she had to be transferred to [facility] For the large pericardial effusion likely due to the pericardial effusion with a possible impending tamponade. I counseled patient and that I think it is therefore best that she is transferred emergently to [facility]. ED doctor also informed and she agrees. #UTI: Urinalysis showed 2+ bacteria and elevated leukocyte esterase. Started on IV Zosyn as above. Urine cultures ordered. #Elevated troponins: Initial troponin was 119 and trended up to 127. She denies any chest pain. This is likely demand ischemia in the setting of hypotension. Will monitor closely. Will order records of her most recent echo from [facility]. Sublingual nitroglycerin as needed #History of melanoma: Was recently at [facility] and received Keytruda. #Moderate pericardial effusion: This is not new. She was seen at [facility] Previously for this and required a pericardial window. Will monitor for now and see how she does. #Hypertension: Hold BP meds due to blood pressure running low from the diarrhea. #Hyperlipidemia: On statin #DVT prophylaxis: Already anticoagulated. Disposition: Patient to be emergently transferred to [facility] for evaluation for recurring moderate, enlargingg symptomatic pericardial effusion. Charges/Coding Procedures Hospitalists Procedures: Other Procedure - See Report (Hospitalist consult in ED- [id number])
[2025-06-10 03:37] LABS: Pro- Brain NATRIURETIC PEPTIDE 1014 pg/mL (<=1800); Troponin T High Sensitivity 119 ng/L (<=14)
[2025-06-10] MEDS: 0.9% Normal Saline (1000mL) 1,000 ML 999 ML IV (03:37)
[2025-06-10 03:48] LABS: Troponin T High Sens 2 HR 127 ng/L (<=14)
[2025-06-10] MEDS: Norepinephrine Bit/0.9% NaCl 8 MG/250 ML IV.SOLN 9.4 MG CONT INF (04:26)
--- NOTE | 2025-06-10 05:25 | PCA ---
Addendum entered by Peri Galdamez 06/10/25 06:09: CALLED AT [id number] FOR AN UPDATE. GAVE AN [phone] ETA Addendum entered by Peri Galdamez 06/10/25 05:35: PHYSICIANS SET UP FOR TRANSPORT. ETA OF 4 HOURS. REQUESTED OUTSOURCE. WAITING CALL BACK Original Note: PT ACCEPTED TO [facility] ICU RM [id number]. DR ISAAC ACCEPTING DOCTOR. NURSE TO NURSE [phone]
[2025-06-10 05:43] LABS: Reflex Lactate? Y
[2025-06-10 05:54] LABS: Troponin T High Sens 4 HR 145 ng/L (<=14)
[2025-06-10] MEDS: HEPARIN/D5w 25,000 UNITS 25,000 UNITS/250 ML IV.SOLN. 9.9 UNITS CONT INF (06:10)
[2025-06-10 06:16] LABS: Prothrombin Time (Protime)PT. 17.4 SECONDS (11.7-14.9)
[2025-06-10 06:17] LABS: Partial Thromboplast Time 30.4 Seconds (24.1-36.2)
--- NOTE | 2025-06-10 09:01 | ED.RN ---
PHYSICIANS ARRIVED AT [id number]. DEPARTED AT 0900
== END 2025-06-10 09:02 | disposition short-term general hospital (02) ==
PROVIDERS: Emergency Provider Student in an Organized Health Care Education/Training Program; PCP Family Medicine; Visit Provider Student in an Organized Health Care Education/Training Program
DX: R00.2 Palpitations (principal); C43.62 Malignant melanoma of left upper limb, including shoulder; I10 Essential (primary) hypertension; Z86.718 Personal history of other venous thrombosis and embolism; R55 Syncope and collapse; K21.9 Gastro-esophageal reflux disease without esophagitis; Z87.891 Personal history of nicotine dependence; E78.5 Hyperlipidemia, unspecified; Z79.01 Long term (current) use of anticoagulants; I31.39 Other pericardial effusion (noninflammatory); D64.9 Anemia, unspecified; E87.20 Acidosis, unspecified; K52.9 Noninfective gastroenteritis and colitis, unspecified; Z96.643 Presence of artificial hip joint, bilateral; Z79.899 Other long term (current) drug therapy
CPT/HCPCS: 70450; 71275; 74177; 80053; 81001; 82803; 82962; 83605; 83690; 83735; 83880; 84484; 85025; 85610; 85730; 87040; 87631; 93005; 96361; 96365; 96375; 99285; Q9967; A4216; J2405

== ENCOUNTER 2025-06-28 06:55 | Inpatient (IN) | payer MEDICARE, OTHER, SELFPAY ==
[2025-06-28] VITALS (13 sets, daily range): BP systolic 101–150; BP diastolic 56–93; PULSE 82–119; RESP 14–19; TEMP 36.6–38; O2SAT 87–100; BMI 28.3; BMI 27.0
--- NOTE | 2025-06-28 07:08 | EX.ED.DYSGE1 ---
HPI History of Present Illness Chief Complaint: Syncope Informant: patient Onset/Context/Timing Onset: Today Context: Sudden Onset Timing: Continuous Quality: Dizzy, off balance Location: Generalized Worsened by: Nothing Relieved by: Nothing Narrative Narrative: Patient presents with a syncopal episode that occurred today. Patient states she felt dizzy when she woke up. Patient states she was off balance and was having difficulty walking. Patient states her laid her on the floor and then she passed out. Patient states that sometimes she feels her heart racing due to her atrial fibrillation. Patient is on anticoagulants. Patient denies any chest pain. Patient denies any shortness of breath or cough. Patient is undergoing treatment for metastatic melanoma. [facility] Medical History Septic shock Colitis Afib Type 2 SD (myocardial infarction) Neurologic disorder Cancer, metastatic Cerebral vascular disease Elevated troponin History of Holter monitoring Hx of malignant carcinoid tumor Weakness Chronic pain Obesity (BMI 30.0-34.9) History of syncope Generalized abdominal pain Wears glasses Arthritis Neuropathy History of pain when walking History of echocardiogram Cardiology follow-up encounter History of atrial fibrillation Syncopal episodes Metastatic melanoma Duodenal mass Post-menopausal History of steroid therapy Anemia History of immunosuppression therapy Seizures Adrenal insufficiency 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 Bilateral pulmonary embolism Pulmonary emboli Left leg DVT Anticoagulated Former smoker Mild cognitive impairment COVID-19 Polyneuropathy Essential hypertension GERD (gastroesophageal reflux disease) Hypertension Hyperlipidemia Home Medications ?Medication ?Instructions ?Recorded ?Last Taken ?Type metoprolol succinate 50 mg 50 mg PO DAILY heart rate ##0 08/15/20 02/24/25 Rx tablet,extended release 24 hr atorvastatin 40 mg tablet 40 mg PO DAILY cholesterol 09/24/20 02/23/25 History apixaban 5 mg tablet (Eliquis) 5 mg PO BID blood thinner 30 days 07/27/23 02/24/25 Rx #60 tabs pantoprazole 40 mg tablet,delayed 40 mg PO DAILY #30 tabs 08/29/23 02/24/25 Rx release melatonin 3 mg tablet 3 mg PO HS PRN sleep 10/18/23 02/23/25 History ondansetron HCl 8 mg tablet 8 mg PO Q8H PRN nausea and vomiting 11/02/23 Unknown History tizanidine 4 mg capsule 4 mg PO Q8H PRN muscle spasticity 03/27/24 Unknown History lisinopril 40 mg tablet 20 mg PO DAILY 01/22/25 02/23/25 History dicyclomine 10 mg capsule 10 mg PO BID PRN abdominal pain 01/28/25 Unknown History diphenoxylate-atropine 2.5 1 tab PO QHS PRN diarrhea 01/28/25 Unknown History mg-0.025 mg tablet (Lomotil) ibuprofen 200 mg tablet (Advil) 200 mg PO TID PRN pain 01/28/25 Unknown History amlodipine 5 mg tablet 5 mg PO DAILY 03/27/25 Unknown History cholecalciferol (vitamin D3) 50 50 mcg PO QDAY 03/27/25 Unknown History mcg (2,000 unit) capsule prednisone 5 mg tablet 5 mg PO DAILY #100 tabs 03/27/25 Unknown Rx cyclobenzaprine 5 mg tablet 5 mg PO Q8H PRN PRN pain 06/10/25 Unknown History acetaminophen 500 mg tablet 1,000 mg PO Q8H PRN Pain Score 1-5 06/25/25 Unknown History Allergy/AdvReac Type Severity Reaction Status Date / Time Sulfa (Sulfonamide Allergy Severe Swelling Verified 06/28/25 07:02 Antibiotics) amoxicillin AdvReac Severe Diarrhea Verified 06/28/25 07:02 sulfamethoxazole (From AdvReac Severe Anaphylaxis Verified 06/28/25 07:02 Bactrim) trimethoprim (From Bactrim) AdvReac Severe Swelling Verified 06/28/25 07:02 Family History Brother Alcoholism Asthma Myocardial infarction, Onset Age: 52 Seizures Skin cancer Sister CVA (cerebral vascular accident) Asthma Grandfather Asthma Father Myocardial infarction, Onset Age: 46 Had at age 46 & 62 Mother Myocardial infarction, Onset Age: 82 Surgical History History of tubal ligation Hx of tonsillectomy Hx of surgical procedure History of total left hip replacement History of amputation of finger History of right hip replacement History of cataract surgery History of eye surgery Social History household members: spouse Smoking Status: Former smoker Tobacco: How many years used: 30 how long ago did patient quit smokin years ago second hand exposure: No alcohol intake: current alcohol intake frequency: holidays/special occasions only Alcohol type: wine substance use type: does not use amy/baptism: None seatbelt use: always ROS ROS ED Constitutional Constitutional ED: Denies chills or fever(s) Eyes Eyes: Denies blurry vision or change in vision ENT ENT ED: Denies rhinorrhea or sore throat Cardiovascular Cardiovascular: Reports palpitations and racing heartbeat; Denies chest pain Respiratory/Chest Respiratory/Chest: Denies cough or dyspnea Gastrointestinal Gastrointestinal: Denies nausea or vomiting Genitourinary Genitourinary ED: Denies dysuria or hematuria Musculoskeletal Musculoskeletal: Reports back pain; Denies neck pain Integumentary Denies abscess or rash Neurologic Neurologic: Reports headache(s); Denies weakness Allergic/Immunologic Allergic/Immunologic ED: Denies mouth swelling or urticaria EXAM Physical Exam Const Vital Signs: 06/28/25 06:55 06/28/25 06:59 06/28/25 07:27 Temperature 99.2 F H Temperature Source Oral Pulse Rate 82 Pulse Rate [Lying] Pulse Rate [Sitting (for 1 minute prior to obtaining)] Respiratory Rate 19 H 18 Respiratory Effort Respiratory Pattern Blood Pressure 108/60 Blood Pressure [Lying] Blood Pressure [Sitting (for 1 minute prior to obtaining)] Blood Pressure Mean 76 Blood Pressure Mean [Lying] Blood Pressure Mean [Sitting (for 1 minute prior to obtaining)] Pulse Ox 87 94 Oxygen Delivery Method Room Air Nasal Cannula Nasal Cannula Oxygen Flow Rate (L/min) 2 2 06/28/25 08:33 06/28/25 08:55 06/28/25 10:00 Temperature 98.7 F 98.7 F Temperature Source Oral Oral Pulse Rate 95 91 Pulse Rate [Lying] 94 Pulse Rate [Sitting (for 1 minute prior to obtaining)] 87 Respiratory Rate 18 18 Respiratory Effort Respiratory Pattern Blood Pressure 123/93 H 150/59 H Blood Pressure [Lying] 110/56 L Blood Pressure [Sitting (for 1 minute prior to obtaining)] 101/61 Blood Pressure Mean 103 89 Blood Pressure Mean [Lying] 74 Blood Pressure Mean [Sitting (for 1 minute prior to obtaining)] 74 Pulse Ox 99 100 Oxygen Delivery Method Nasal Cannula Nasal Cannula Oxygen Flow Rate (L/min) 2 2 06/28/25 12:00 06/28/25 13:14 06/28/25 14:00 Temperature 97.9 F Temperature Source Oral Pulse Rate 95 100 Pulse Rate [Lying] Pulse Rate [Sitting (for 1 minute prior to obtaining)] Respiratory Rate 14 19 H Respiratory Effort Normal Non-Labored Respiratory Pattern Normal Blood Pressure 149/59 H 147/71 H Blood Pressure [Lying] Blood Pressure [Sitting (for 1 minute prior to obtaining)] Blood Pressure Mean 89 96 Blood Pressure Mean [Lying] Blood Pressure Mean [Sitting (for 1 minute prior to obtaining)] Pulse Ox 97 97 Oxygen Delivery Method Nasal Cannula Room Air Oxygen Flow Rate (L/min) 2 06/28/25 14:17 Temperature 98.1 F Temperature Source Pulse Rate 102 H Pulse Rate [Lying] Pulse Rate [Sitting (for 1 minute prior to obtaining)] Respiratory Rate 18 Respiratory Effort Respiratory Pattern Blood Pressure 147/71 H Blood Pressure [Lying] Blood Pressure [Sitting (for 1 minute prior to obtaining)] Blood Pressure Mean 96 Blood Pressure Mean [Lying] Blood Pressure Mean [Sitting (for 1 minute prior to obtaining)] Pulse Ox 97 Oxygen Delivery Method Oxygen Flow Rate (L/min) Positive well nourished and well developed General Appearance ED: well developed and NAD HEENT Reports moist mucous membranes Neck supple and no JVD Resp normal respiratory effort and clear to auscultation bilaterally Cardio regular rate Rhythm: abnormal rhythm irregularly irregular GI non-tender and non-distended Palpation: soft Neuro oriented x3 and CN's II-XII intact bilaterally Sensorium / Orientation: alert Motor Exam: general weakness Psych mental status grossly normal MDM MDM MDM Narrative Medical decision making narrative: Differential diagnosis includes but is not limited to vasovagal syncope, cardiac dysrhythmia, cardiac ischemia, pneumonia, bronchitis, vertigo, electrolyte abnormality, dehydration, intracranial bleeding, stroke, and anxiety. EKG will be obtained to assess for cardiac dysrhythmia and cardiac ischemia. Chest x-ray will be obtained to assess for pneumonia and bronchitis. CT scan of the brain will be obtained to assess for intracranial bleeding and stroke. CBC will be obtained to assess for leukocytosis and anemia. Basic metabolic profile will be obtained to assess for electrolyte abnormality and renal function. High-sensitivity troponin will be obtained to assess for cardiac ischemia. 2-hour repeat high-sensitivity troponin will be obtained to assess for ongoing cardiac ischemia. Orthostatic vital signs will be obtained to assess for hypokalemia and orthostatic hypotension. History & Record Review Additional record(s) reviewed:: Prior ED visit and Prior labs Lab Data Attestation: I reviewed the patient's lab results. Lab results narrative: CBC was reviewed. There is a mild anemia with a hemoglobin of 10.0 and hematocrit of 32.7. This is consistent with previous results. Basic metabolic profile was reviewed and was essentially within normal limits. PT with INR and PTT were reviewed. Pro time was 17.6 and INR is 1.4. PTT was slightly elevated at 37.9. Initial high-sensitivity troponin was reviewed and was 32. 2-hour repeat high-sensitivity troponin was reviewed and was 27. 4-hour repeat high-sensitivity troponin was reviewed and was 28. Urinalysis was reviewed. Leukocyte esterase was 500. There are 10-25 white blood cells. The remainder is within normal limits. Labs: Laboratory Results - last 24 hr 06/28/25 06/28/25 06/28/25 06:56 07:50 10:24 WBC 8.3 RBC 3.83 L Hgb 10.0 L Hct 32.7 L MCV 85.4 MCH 26.1 L MCHC 30.6 L RDW Std Deviation 45.5 H RDW Coeff of [place] 14.8 H Plt Count 299 MPV 10.2 Immature Gran % (Auto) 0.800 Neut % (Auto) 72.4 H Lymph % (Auto) 15.9 L [place] % (Auto) 10.6 H Eos % (Auto) 0.1 Baso % (Auto) 0.2 Absolute Neuts (auto) 6.0 Absolute Lymphs (auto) 1.32 Nucleated RBC % 0 PT 17.6 H INR 1.4 APTT 37.9 H Sodium 138 Potassium 4.2 Chloride 101 Carbon Dioxide 25.8 Anion Gap 11 BUN 12 Creatinine 0.76 Estim Creat Clear Calc 62.64 Est GFR (MDRD) Non-Af 81 BUN/Creatinine Ratio 15.9 Glucose 106 H Calcium 9.1 Troponin T High Sens 32 H D Troponin T Hi Sens 2 Hr 27 H Troponin T Hi Sens 4Hr Urine Color Urine Clarity Urine pH Ur Specific [place] Urine Protein Urine Glucose (UA) Urine Ketones Urine Occult Blood Urine Nitrite Urine Bilirubin Urine Urobilinogen Ur Leukocyte Esterase Urine RBC Urine WBC Ur Squamous Epith Cells Ur Transition Epith Cell Urine Bacteria Urine Mucus 06/28/25 06/28/25 11:10 11:20 WBC RBC Hgb Hct MCV MCH MCHC RDW Std Deviation RDW Coeff of [place] Plt Count MPV Immature Gran % (Auto) Neut % (Auto) Lymph % (Auto) [place] % (Auto) Eos % (Auto) Baso % (Auto) Absolute Neuts (auto) Absolute Lymphs (auto) Nucleated RBC % PT INR APTT Sodium Potassium Chloride Carbon Dioxide Anion Gap BUN Creatinine Estim Creat Clear Calc Est GFR (MDRD) Non-Af BUN/Creatinine Ratio Glucose Calcium Troponin T High Sens Troponin T Hi Sens 2 Hr Troponin T Hi Sens 4Hr 28 H Urine Color Yellow Urine Clarity Sl. Cloudy Urine pH 7.0 Ur Specific [place] 1.010 Urine Protein 15 H Urine Glucose (UA) Normal Urine Ketones Negative Urine Occult Blood 10 H Urine Nitrite Negative Urine Bilirubin Negative Urine Urobilinogen Normal Ur Leukocyte Esterase 500 H Urine RBC 0-5 SEEN Urine WBC 10-25 SEEN Ur Squamous Epith Cells 0-5 SEEN Ur Transition Epith Cell 0-5 SEEN Urine Bacteria 0 SEEN Urine Mucus 0 SEEN Radiography Chest X-Ray - ED: 2 View, Read by ED Physician, Read by Radiologist and Left Infiltrate CTA PE Study: No Evidence of PE and No Evidence of Dissection Diagnostic Testing: Clinical Impression(s) from Imaging Studies Chest X-Ray 06/28/25 07:27 IMPRESSION: Suspected pleural effusion and/or base disease specific. There was a small pleural effusion in this vicinity on 06/10/2025. Reading Location: [facility] Brain CT 06/28/25 08:02 IMPRESSION: No CT evidence of acute intracranial hemorrhage, transcortical infarct, or significant mass effect. Chronic microvascular ischemic changes. Reading Location: [id number] Chest CTA 06/28/25 13:30 IMPRESSION: 1. No pulmonary embolus. No thoracic aortic aneurysm/dissection. 2. Small/moderate pericardial effusion, unchanged from 06/10. 3. Bilateral pleural effusions have increased from 06/10. Adjacent bibasilar airspace opacities, favor atelectasis. Superimposed pneumonia can not be completely excluded. Reading Location: [facility] lateral chest x-ray was obtained. There are 2 views. On my independent interpretation, there is questionable pleural effusion versus infiltrate in the left lung base. This is best seen on the lateral view. Bony thorax is normal. There is no cardiomegaly noted. Radiologist also interpreted the x-rays and agrees. CT scan of the brain was obtained. There is no acute intracranial abnormality. There are chronic ischemic changes noted. This was interpreted by the radiologist and was also independently reviewed by myself. CTA of the chest was obtained. There is no pulmonary embolism or aortic dissection. There is a small to moderate pericardial effusion which is unchanged from 06/10/2025. There are small bilateral pleural effusions which have slightly increased from 06/10/2025. EKG Initial EKG: Interpretation: Atrial Fibrillation (91) and Non-Specific ST Changes Comments: EKG was obtained. On my independent interpretation, shows atrial fibrillation with a rate of 91. QRS interval was normal at 80 ms. QTc interval was normal at 400 ms. Ethan is normal. There are nonspecific ST-T wave changes noted. Prior EKG tracings: available for review Prior: Changed (Compared to previous EKG dated 06/10/2025, the atrial fibrillation is new.) Management Discussion w/another healthcare provider: Hospitalist Treatment and Re-Evaluation :: Patient was advised of her findings. Patient is feeling better on reevaluation. Patient was given IV fluids. Patient was started on Rocephin. Case was discussed with the hospitalist. She recommended obtaining a CT scan of her chest due to her history of pericardial effusion. This was ordered. Hospitalist was advised of the findings. She will be in to evaluate the patient and admit the patient to her service. Patient was given a dose of Zithromax as well as the Rocephin to cover for pneumonia. Patient and family understand and are agreeable with the plan. All questions were answered. Discharge Plan Dx/Rx/DC Orders Clinical Impression: Pneumonia, Syncope, Orthostatic hypotension Disposition Disposition: Acute Care Hospital [facility]
--- NOTE | 2025-06-28 07:27 | RAD_ITS ---
PROCEDURE: RAD/Chest PA and Lateral
--- NOTE | 2025-06-28 07:27 | EKG12_ITS ---
Test Reason : SYNCOPE
[2025-06-28 07:45] LABS: Hematocrit 32.7 % (37-47); Hemoglobin 10.0 g/dL (12.0-15.0); Immature Granulocytes Count 0.070 X10^3/uL (0.0-0.0); Mean Corp Hgb Conc 30.6 g/dL (32-36); Mean Corpuscular Volume 85.4 fL (81-99); Mean Platelet Vol. 10.2 fl (6.2-12.0); NRBC Flagged by Analyzer 0 % (0-5); Platelet Count 299 K/mm3 (150-450); RBC Distribution Width CV 14.8 % (11.6-14.6); RBC Distribution Width SD 45.5 fl (35.1-43.9); Red Blood Count 3.83 M/mm3 (4.2-5.4); White Blood Count 8.3 K/mm3 (4.4-11.0)
--- NOTE | 2025-06-28 08:02 | CT_ITS ---
PROCEDURE: CT/Brain/Head without Contrast
[2025-06-28 08:03] LABS: Anion Gap 11 (5-15); BUN 12 mg/dL (4-19); BUN/Creat Ratio 15.9 RATIO (10-20); Calcium,Total 9.1 mg/dL (7.6-11.0); Carbon Dioxide 25.8 mmol/L (21.0-32.0); Chloride 101 mmol/L (98-108); Estimated Creatinine Clearance 62.64 ml/min (50-250); Glucose 106 mg/dL (70-99); Potassium 4.2 mmol/L (3.3-5.1); Troponin T High Sensitivity 32 ng/L (<=14)
[2025-06-28 08:53] LABS: Partial Thromboplast Time 37.9 Seconds (24.1-36.2); Prothrombin Time (Protime)PT. 17.6 SECONDS (11.7-14.9)
[2025-06-28] MEDS: 0.9% Normal Saline (1000mL) 1,000 ML 1000 ML IV (09:33)
[2025-06-28 10:47] LABS: Troponin T High Sens 2 HR 27 ng/L (<=14)
[2025-06-28 11:27] LABS: Mucous, Urine 0 SEEN /hpf (<or=2+)
[2025-06-28 11:30] LABS: Color, Urine Yellow (Yellow); Glucose, Dipstick Normal (Normal); Ketone-Dipstick Negative (Negative); Leukocyte Esterase-Dipstick 500 /ul (Negative); Nitrite-Dipstick Negative (Negative); Occult Blood-Urine 10 /ul (Negative); Protein-Dipstick 15 mg/dl (Negative); Specific Gravity, Urine 1.010 (1.002-1.030); Urine Bilirubin Dipstick Negative (Negative)
[2025-06-28 11:42] LABS: Red Blood Cells-Urine 0-5 SEEN /hpf (0-5); Squamous Epithelial Cells - UA 0-5 SEEN /hpf (5-10); Transitional Epithelial - Ur 0-5 SEEN /hpf (0-5)
[2025-06-28 11:51] LABS: Troponin T High Sens 4 HR 28 ng/L (<=14)
--- NOTE | 2025-06-28 13:30 | CT_ITS ---
PROCEDURE: CT/CTA Chest W/WO Contrast
[2025-06-28] MEDS: Azithromycin 500 MG in 0.9% Normal Saline (250mL Bag) 250 ML 250 MG IV (15:27)
--- NOTE | 2025-06-28 15:41 | PCM.HP.STD ---
HPI - General General Date of Admission: 06/28/25 Date of Service: 06/28/25 Chief Complaint: Syncope HPI Narrative MISTI HUERTA, is a 79-year-old female history of GERD, hypertension, DVT, A-fib, melanoma, adrenal insufficiency on chronic steroid therapy presented [facility] ED 06/28/2025 with syncopal episode earlier today. She felt lightheaded and then passed out prompting to bring her to the ED. In the ED temp 99.2, heart rate 82, respiratory rate 19 blood pressure 108/60, pulse ox initially listed as 87% on room air but subsequently 97 100% on 2 L so unclear how accurate that was. White count within normal limits, hemoglobin of 10, BMP with a BUN of 12 and creatinine 0.76. Trope slightly elevated 32 with repeat of 27. UA not suggestive of UTI. Chest x-ray with suspected pleural effusion with a small effusion noted last month as well. CTA obtained with small to moderate pericardial effusion which was unchanged from 06/10 and bilateral pleural effusions increased from 06/[address] head no acute process. Attempted to do orthostats however patient became symptomatic and they were unable to obtain. Hospitalist contacted for admission for syncope. Patient evaluated with at bedside, patient has had multiple hospitalizations recently, last time she was here in the ED last month she was noted to have a pericardial effusion on CT scan and was transferred to [place], she reports that there was no intervention for that and no tamponade or other concerning etiology at that time. She was discharged to a rehab unit and has been home for 1 week. Reportedly she had been on elevated doses of prednisone at [place] of 20 mg, they contacted their senior commissary agent office and were on a taper over this week, as patient's prednisone decreased her symptoms of lightheadedness worsened and over the past couple of days she has had more episodes of lightheadedness, today had the episode of syncope but her caught her and prevented her from injury. Denies any shortness of breath, cough, no fevers, no bowel or bladder changes, no nausea or vomiting or abdominal pain. Just feels generally weak and often lightheaded when she stands. FOR[facility]LY [facility] Medical History Septic shock Colitis Afib Type 2 SC (myocardial infarction) Neurologic disorder Cancer, metastatic Cerebral vascular disease Elevated troponin History of Holter monitoring Hx of malignant carcinoid tumor Weakness Chronic pain Obesity (BMI 30.0-34.9) History of syncope Generalized abdominal pain Wears glasses Arthritis Neuropathy History of pain when walking History of echocardiogram Cardiology follow-up encounter History of atrial fibrillation Syncopal episodes Metastatic melanoma Duodenal mass Post-menopausal History of steroid therapy Anemia History of immunosuppression therapy Seizures Adrenal insufficiency 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 Bilateral pulmonary embolism Pulmonary emboli Left leg DVT Anticoagulated Former smoker Mild cognitive impairment COVID-19 Polyneuropathy Essential hypertension GERD (gastroesophageal reflux disease) Hypertension Hyperlipidemia Home Medications ?Medication ?Instructions ?Recorded ?Last Taken ?Type metoprolol succinate 50 mg 50 mg PO DAILY heart rate ##0 08/15/20 06/27/25 21:00 Rx tablet,extended release 24 hr atorvastatin 40 mg tablet 40 mg PO DAILY cholesterol 09/24/20 06/27/25 21:00 History apixaban 5 mg tablet (Eliquis) 5 mg PO BID blood thinner 30 days 07/27/23 06/27/25 21:00 Rx #60 tabs pantoprazole 40 mg tablet,delayed 40 mg PO DAILY #30 tabs 08/29/23 06/27/25 Rx release melatonin 3 mg tablet 3 mg PO HS PRN sleep 10/18/23 02/23/25 History ondansetron HCl 8 mg tablet 8 mg PO Q8H PRN nausea and vomiting 11/02/23 Unknown History tizanidine 4 mg capsule 4 mg PO Q8H PRN muscle spasticity 03/27/24 Unknown History lisinopril 40 mg tablet 20 mg PO DAILY hypertension 01/22/25 02/23/25 History dicyclomine 10 mg capsule 10 mg PO BID PRN abdominal pain 01/28/25 Unknown History Held on 06/28/25. Instructions: pt not sure she takes diphenoxylate-atropine 2.5 1 tab PO QHS PRN diarrhea 01/28/25 Unknown History mg-0.025 mg tablet (Lomotil) ibuprofen 200 mg tablet (Advil) 200 mg PO TID PRN pain 01/28/25 Unknown History amlodipine 5 mg tablet 5 mg PO DAILY hypertension 03/27/25 06/27/25 10:00 History cholecalciferol (vitamin D3) 50 50 mcg PO QDAY vitamin 03/27/25 06/27/25 History mcg (2,000 unit) capsule prednisone 5 mg tablet 5 mg PO DAILY #100 tabs 03/27/25 06/27/25 10:00 Rx cyclobenzaprine 5 mg tablet 5 mg PO Q8H PRN PRN pain 06/10/25 06/27/25 History acetaminophen 500 mg tablet 1,000 mg PO Q8H PRN Pain Score 1-5 06/25/25 06/27/25 History Allergy/AdvReac Type Severity Reaction Status Date / Time Sulfa (Sulfonamide Allergy Severe Swelling Verified 06/28/25 07:02 Antibiotics) amoxicillin AdvReac Severe Diarrhea Verified 06/28/25 07:02 sulfamethoxazole (From AdvReac Severe Anaphylaxis Verified 06/28/25 07:02 Bactrim) trimethoprim (From Bactrim) AdvReac Severe Swelling Verified 06/28/25 07:02 Family History Brother Alcoholism Asthma Myocardial infarction, Onset Age: 52 Seizures Skin cancer Sister CVA (cerebral vascular accident) Asthma Grandfather Asthma Father Myocardial infarction, Onset Age: 46 Had at age 46 & 62 Mother Myocardial infarction, Onset Age: 82 Surgical History History of tubal ligation Hx of tonsillectomy Hx of surgical procedure History of total left hip replacement History of amputation of finger History of right hip replacement History of cataract surgery History of eye surgery Social History household members: spouse Smoking Status: Former smoker Tobacco: How many years used: 30 how long ago did patient quit smokin years ago second hand exposure: No alcohol intake: current alcohol intake frequency: holidays/special occasions only Alcohol type: wine substance use type: does not use amy/taoist: None seatbelt use: always ROS ROS Narrative General: Denies fever/chills HENT: Sometimes will get headaches, denies stuffy nose, denies sore throat EYES: Denies changes in vision Resp: Denies cough, denies shortness of breath Cardiac: Denies chest pain GI: Denies abdominal pain, denies changes in bowel, denies nausea/vomiting : Denies changes in urination Extremity: Denies swelling MSK: Generalized weakness and lightheadedness occasionally when not moving around Neuro: Denies any numbness/tingling Heme: Denies any bleeding or bruising Skin: Denies rashes Psychiatric: No complaints voiced Vital Signs Vital Signs Vital Signs: 06/28/25 06:55 06/28/25 06:59 06/28/25 07:27 Temperature 99.2 F H Temperature Source Oral Pulse Rate 82 Pulse Rate [Lying] Pulse Rate [Sitting (for 1 minute prior to obtaining)] Respiratory Rate 19 H 18 Respiratory Effort Respiratory Pattern Blood Pressure 108/60 Blood Pressure [Lying] Blood Pressure [Sitting (for 1 minute prior to obtaining)] Blood Pressure Mean 76 Blood Pressure Mean [Lying] Blood Pressure Mean [Sitting (for 1 minute prior to obtaining)] Pulse Ox 87 94 Oxygen Delivery Method Room Air Nasal Cannula Nasal Cannula Oxygen Flow Rate (L/min) 2 2 06/28/25 08:33 06/28/25 08:55 06/28/25 10:00 Temperature 98.7 F 98.7 F Temperature Source Oral Oral Pulse Rate 95 91 Pulse Rate [Lying] 94 Pulse Rate [Sitting (for 1 minute prior to obtaining)] 87 Respiratory Rate 18 18 Respiratory Effort Respiratory Pattern Blood Pressure 123/93 H 150/59 H Blood Pressure [Lying] 110/56 L Blood Pressure [Sitting (for 1 minute prior to obtaining)] 101/61 Blood Pressure Mean 103 89 Blood Pressure Mean [Lying] 74 Blood Pressure Mean [Sitting (for 1 minute prior to obtaining)] 74 Pulse Ox 99 100 Oxygen Delivery Method Nasal Cannula Nasal Cannula Oxygen Flow Rate (L/min) 2 2 06/28/25 12:00 06/28/25 13:14 06/28/25 14:00 Temperature 97.9 F Temperature Source Oral Pulse Rate 95 100 Pulse Rate [Lying] Pulse Rate [Sitting (for 1 minute prior to obtaining)] Respiratory Rate 14 19 H Respiratory Effort Normal Non-Labored Respiratory Pattern Normal Blood Pressure 149/59 H 147/71 H Blood Pressure [Lying] Blood Pressure [Sitting (for 1 minute prior to obtaining)] Blood Pressure Mean 89 96 Blood Pressure Mean [Lying] Blood Pressure Mean [Sitting (for 1 minute prior to obtaining)] Pulse Ox 97 97 Oxygen Delivery Method Nasal Cannula Room Air Oxygen Flow Rate (L/min) 2 06/28/25 14:17 Temperature 98.1 F Temperature Source Pulse Rate 102 H Pulse Rate [Lying] Pulse Rate [Sitting (for 1 minute prior to obtaining)] Respiratory Rate 18 Respiratory Effort Respiratory Pattern Blood Pressure 147/71 H Blood Pressure [Lying] Blood Pressure [Sitting (for 1 minute prior to obtaining)] Blood Pressure Mean 96 Blood Pressure Mean [Lying] Blood Pressure Mean [Sitting (for 1 minute prior to obtaining)] Pulse Ox 97 Oxygen Delivery Method Oxygen Flow Rate (L/min) Weight Weight: 79.5 kg Body Mass Index (BMI) 28.3 Physical Exam Narrative General: Alert, oriented, no apparent distress HEENT: Atraumatic, normocephalic Eyes: Anicteric, normal conjunctiva, extraocular movements grossly intact Neck: Supple Respiratory: C somewhat diminished at the bases, normal respiratory effort Cardiovascular: Regular rate GI: Soft, nontender, nondistended Extremities: No edema Musculoskeletal: Moving all extremities Neuro: No overt focal neurological deficits Skin: No rashes appreciated Psych: Cooperative Results Lab / Micro Data 06/28/25 06:56 06/28/25 06:56 Labs: Laboratory Results - last 24 hr 06/28/25 06:56: WBC 8.3, RBC 3.83 L, Hgb 10.0 L, Hct 32.7 L, MCV 85.4, MCH 26.1 L, MCHC 30.6 L, RDW Std Deviation 45.5 H, RDW Coeff of Lynn 14.8 H, Plt Count 299, MPV 10.2, Immature Gran % (Auto) 0.800, Neut % (Auto) 72.4 H, Lymph % (Auto) 15.9 L, [place] % (Auto) 10.6 H, Eos % (Auto) 0.1, Baso % (Auto) 0.2, Absolute Neuts (auto) 6.0, Absolute Lymphs (auto) 1.32, Nucleated RBC % 0, Sodium 138, Potassium 4.2, Chloride 101, Carbon Dioxide 25.8, Anion Gap 11, BUN 12, Creatinine 0.76, Estim Creat Clear Calc 62.64, Est GFR (MDRD) Non-Af 81, BUN/Creatinine Ratio 15.9, Glucose 106 H, Calcium 9.1, Troponin T High Sens 32 H D 06/28/25 07:50: PT 17.6 H, INR 1.4, APTT 37.9 H 06/28/25 10:24: Troponin T Hi Sens 2 Hr 27 H 06/28/25 11:10: Urine Color Yellow, Urine Clarity Sl. Cloudy, Urine pH 7.0, Ur Specific [place] 1.010, Urine Protein 15 H, Urine Glucose (UA) Normal, Urine Ketones Negative, Urine Occult Blood 10 H, Urine Nitrite Negative, Urine Bilirubin Negative, Urine Urobilinogen Normal, Ur Leukocyte Esterase 500 H, Urine RBC 0-5 SEEN, Urine WBC 10-25 SEEN, Ur Squamous Epith Cells 0-5 SEEN, Ur Transition Epith Cell 0-5 SEEN, Urine Bacteria 0 SEEN, Urine Mucus 0 SEEN 06/28/25 11:20: Troponin T Hi Sens 4Hr 28 H Imaging Radiology Impression Chest X-Ray 06/28/25 07:27 IMPRESSION: Suspected pleural effusion and/or base disease specific. There was a small pleural effusion in this vicinity on 06/10/2025. Reading Location: [facility] Brain CT 06/28/25 08:02 IMPRESSION: No CT evidence of acute intracranial hemorrhage, transcortical infarct, or significant mass effect. Chronic microvascular ischemic changes. Reading Location: [id number] Chest CTA 06/28/25 13:30 IMPRESSION: 1. No pulmonary embolus. No thoracic aortic aneurysm/dissection. 2. Small/moderate pericardial effusion, unchanged from 06/10. 3. Bilateral pleural effusions have increased from 06/10. Adjacent bibasilar airspace opacities, favor atelectasis. Superimposed pneumonia can not be completely excluded. Reading Location: [id number] Assessment & Plan Assessment/Plan (1) Syncope: PLAN: Plan # Syncope -CT head no acute process, CTA no PE and pericardial effusion unchanged from previous -Patient did get lightheaded when going from lying to standing so they are unable to continue orthostats -EKG A-fib/flutter, intermittently sinus rhythm on the monitor with PACs - Continue metoprolol and Eliquis - Not in RVR - Repeat echo - After further discussion patient had been on 20 mg of prednisone while at [place] and this past week tapered down, over the past several days she has been more lightheaded, query if this could be a component of adrenal insufficiency - We will go back up to 20 mg of prednisone and will give 10 twice daily, cortisol is low, will need to follow-up with endocrinology on discharge # Adrenal insufficiency - Has been on intermittent elevated doses of steroids given her recent hospitalizations, had increased symptoms of presyncope and syncopal episode as prednisone was tapered down this week, increase prednisone to 10 mg twice daily CM, will assess symptoms, will need to follow-up with her senior commissary agent on discharge #paroxysmal Afib/flutter - Patient intermittently in fib/flutter and then sinus rhythm, continue home metoprolol and Eliquis #Chronic pericardial effusion - Unchanged on CT scan - Assessing echo as above but again this is unchanged #GERD -Continue PPI #Hypertension - Continue home amlodipine and metoprolol -Add back RACQUEL when verified blood pressure tolerating #DVT ppx: Not indicated, chronically on Eliquis Gia Diaz MD Charges/Coding Visit Charges Inpatient E&M: 33735 Init Hosp L2
--- NOTE | 2025-06-28 16:27 | ECHOL_ITS ---
Reason For Study ECHO/Echo, Limited Study
[2025-06-28 17:42] LABS: CORTISOL PM 1.46 ug/dL (2.68-10.50); Magnesium 1.9 mg/dL (1.5-2.2)
[2025-06-28] MEDS: Metoprolol(XL)Succ 50 MG Tablet PO (21:12)
[2025-06-28] MEDS: APIXABAN 5 MG TABLET PO (22:03)
[2025-06-29 03:50] VITALS: BP 116/49; PULSE 74; RESP 16; TEMP 36.4; O2SAT 97
[2025-06-29 05:46] VITALS: BMI 25.2
[2025-06-29 07:22] LABS: Hematocrit 32.9 % (37-47); Hemoglobin 10.0 g/dL (12.0-15.0); Immature Granulocytes Count 0.050 X10^3/uL (0.0-0.0); Mean Corp Hgb Conc 30.4 g/dL (32-36); Mean Corpuscular Volume 84.6 fL (81-99); Mean Platelet Vol. 9.6 fl (6.2-12.0); NRBC Flagged by Analyzer 0 % (0-5); POSITIVE DIFFERENTIAL YES; Platelet Count 258 K/mm3 (150-450); RBC Distribution Width CV 14.7 % (11.6-14.6); RBC Distribution Width SD 44.8 fl (35.1-43.9); Red Blood Count 3.89 M/mm3 (4.2-5.4); White Blood Count 9.1 K/mm3 (4.4-11.0)
[2025-06-29 08:02] LABS: Anion Gap 10 (5-15); BUN 16 mg/dL (4-19); BUN/Creat Ratio 18.9 RATIO (10-20); Calcium,Total 8.6 mg/dL (7.6-11.0); Carbon Dioxide 23.8 mmol/L (21.0-32.0); Chloride 102 mmol/L (98-108); Estimated Creatinine Clearance 53.79 ml/min (50-250); Glucose 148 mg/dL (70-99); Potassium 4.5 mmol/L (3.3-5.1)
[2025-06-29 09:49] LABS: Procalcitonin 0.23 ng/mL (<=0.10)
[2025-06-29 09:50] VITALS: BP 101/52; PULSE 99; RESP 18; TEMP 36.7; O2SAT 96
[2025-06-29] MEDS: Ensure Plus High Protein 120 ML LIQUID PO (10:23)
[2025-06-29] MEDS: Senna/Docusate Sodium 1 Tablet 2 TABLET PO (10:23)
[2025-06-29] MEDS: APIXABAN 5 MG TABLET PO ×2 (10:23→21:19)
[2025-06-29 10:43] VITALS: BP 101/52; PULSE 99
[2025-06-29] MEDS: Ceftriaxone 2 GM in 0.9% Normal Saline (50mL MB+) 50 ML IV (11:15)
--- NOTE | 2025-06-29 11:20 | CASEMGMT ---
RN CM Face to Face with patient for initial transition planning/care coordination assessment. RN CM introduced self and role at [facility]. Patient lying in bed, alert and oriented, at bedside. Patient willing to participate in assessment and is able to answer all questions appropriately. Care providers, pharmacy, and demographics verified. Strata:3 PCP: Desirae Specialists: Marisela, GI; Opal, neurology; Louie, oncologist; Lenora, oncology surgeon; Brenna, vascular; , endocrinology Preferred Pharmacy: [facility] Insurance: [facility], Prescription Benefit: yes Living Will/HPOA: yes, Timbo Terry LNOK: Living Arrangements: Patient lives with in a 2 story home with bed and bath on first floor. Patient is able to toilet self, assists with bathing and dressing. Transportation: DME/HHC: shower chair, raised toilet, cane, grab bars, walker, rollator at home. Patient has been to [facility] and [place] [facility] in the past. Patient has had [facility] in the past. Patient is currently attending outpatient therapy at [facility]. Patient patient unsure of disposition at discharge, would like to go home but also willing to [facility] if needed, will monitor progress with therapy. Patient states she has no further needs or concerns at this time. CM to follow for discharge planning needs that may arise. Disposition Plan: TBD, anticipate HHC vs RU. Hilda CASSIDY, RN, CM
[2025-06-29] MEDS: Azithromycin 500 MG in 0.9% Normal Saline (250mL Bag) 250 ML 250 MG IV (12:00)
[2025-06-29 15:50] VITALS: BP 108/57; PULSE 80; RESP 18; TEMP 36.6; O2SAT 98
--- NOTE | 2025-06-29 18:09 | PCM.PN.HOSP ---
Reason for Visit Chief Complaint: Syncope Subjective Subjective Still feeling generally weak but slightly better than yesterday, got up to chair, presently denying any significant cough or shortness of breath, denying any bowel or bladder concerns Objective Data Objective Data Vital Signs: Vital Signs Temp Pulse Resp BP Pulse Ox O2 Del Method O2 Flow Rate 97.9 F 80 18 108/57 L 98 Nasal Cannula 2 06/29/25 15:50 06/29/25 15:50 06/29/25 15:50 06/29/25 15:50 06/29/25 15:50 06/29/25 15:50 06/29/25 15:50 Oxygen Flow Rate (L/min) 2 Oxygen Delivery Method Nasal Cannula Weight: 70.8 kg Body Mass Index (BMI) 25.2 Intake & Output: Intake and Output for Last 24 Hours 06/27/25 06/28/25 06/29/25 23:59 22:59 23:59 Intake Total 1300 / 1420 900 / 900 Output Total 200 / 550 650 / 650 Balance 1100 / 870 250 / 250 Medical Nutrition Assessment Dietitian: Malnutrition Criteria Met Start: 06/29/25 09:59 Freq: Status: Active Protocol: Document 06/29/25 09:59 SB (Rec: 06/29/25 10:00 SB [id number]) Nutrition Malnutrition Evidence of Yes Malnutrition Exists Malnutrition (severe Acute Illness/Injury ): Evidenced By Suboptimal Energy Intake (Severe),Weight Loss (Severe) Clinical Problem Acute Disease or Injury Related Malnutrition Etiology severe malnutrition related to inadequate oral intake Signs/Symptoms as evidenced by PO meeting <50% of estimated nutrition needs x 2-3 months and 8-14% unintentional weight loss x 1 month Status Active Problem Recommendation Dietitian Adjust to regular, no added salt to optimize oral Recommendations/ intakes. Changes Continue 120mL EPHP TID with medpass. Will monitor weight trends. At time of discharge recommend pt follows a regular no added salt diet while PO intake is poor. If PO intakes improve recommend cardiac diet. Lab / Micro Data 06/29/25 07:06 06/29/25 07:06 Labs: Laboratory Results - last 24 hr 06/29/25 07:06: WBC 9.1, RBC 3.89 L, Hgb 10.0 L, Hct 32.9 L, MCV 84.6, MCH 25.7 L, MCHC 30.4 L, RDW Std Deviation 44.8 H, RDW Coeff of Lynn 14.7 H, Plt Count 258, MPV 9.6, Immature Gran % (Auto) 0.600, Neut % (Auto) 87.3 H, Lymph % (Auto) 4.8 L, [place] % (Auto) 7.0, Eos % (Auto) 0.1, Baso % (Auto) 0.2, Absolute Neuts (auto) 7.9 H, Absolute Lymphs (auto) 0.44 L, Nucleated RBC % 0, Sodium 136, Potassium 4.5, Chloride 102, Carbon Dioxide 23.8, Anion Gap 10, BUN 16, Creatinine 0.82, Estim Creat Clear Calc 53.79, Est GFR (MDRD) Non-Af 73, BUN/Creatinine Ratio 18.9, Glucose 148 H, Calcium 8.6, Procalcitonin 0.23 H Micro: Microbiology 06/29/25 16:25 Urine, Clean Catch Legionella Antigen - Final 06/29/25 16:25 Urine, Clean Catch Streptococcus pneumoniae Antigen (M - Final 06/29/25 10:45 Mucosa - Nasopharyngeal Coronavirus COVID-19 PCR - Final 06/29/25 10:45 Mucosa - Nasopharyngeal Respiratory Panel (PCR) - Final Radiography Diagnostic Testing: Radiology Impression Echocardiogram 06/28/25 16:27 Interpretation Summary Mild concentric left ventricular hypertrophy. The left ventricular ejection fraction is 65 %. Stage 1 diastolic dysfunction. Moderate posterior mitral valve annular calcification. Trivial mitral valve regurgitation. Trivial pericardial effusion. Prominent epicardial fat pad. Moderate size left pleural effusion. Ordering Physician: Gia Diaz Referring Physician: Gary Merrill Performed By: Glo Gutierrez RDCS Physical Exam Narrative General: Alert, oriented, no apparent distress HEENT: Atraumatic, normocephalic Eyes: Anicteric, normal conjunctiva, extraocular movements grossly intact Neck: Supple Respiratory: Diminished to the bases, normal respiratory effort Cardiovascular: Regular rate GI: Soft, nontender, nondistended Extremities: No edema Musculoskeletal: Moving all extremities Neuro: No overt focal neurological deficits Skin: No rashes appreciated Psych: Cooperative Assessment & Plan Assessment/Plan (1) Syncope: PLAN: Plan # Syncope -CT head no acute process, CTA no PE and pericardial effusion unchanged from previous -Patient did get lightheaded when going from lying to standing so they are unable to continue orthostats -EKG A-fib/flutter, intermittently sinus rhythm on the monitor with PACs - Continue metoprolol and Eliquis - Not in RVR - Repeat echo - After further discussion patient had been on 20 mg of prednisone while at [place] and this past week tapered down, over the past several days she has been more lightheaded, query if this could be a component of adrenal insufficiency - We will go back up to 20 mg of prednisone and will give 10 twice daily, cortisol is low, will need to follow-up with endocrinology on discharge -06/29: Suspect this happened as patient was developing underlying infection but also going down on prednisone at the same time, feeling slightly better now that she is on antibiotics and higher dose of prednisone, continue PT/OT, continue current management. Echocardiogram with trivial pericardial effusion, EF of 65% and stage I diastolic dysfunction # Fever -06/29:- Patient had fever of 100.4 overnight with low-grade tachycardia. Presently unclear etiology but had a Pro-William of 0.23, imaging most consistent with possible pneumonia, does seem to be improving on antibiotics # Adrenal insufficiency - Has been on intermittent elevated doses of steroids given her recent hospitalizations, had increased symptoms of presyncope and syncopal episode as prednisone was tapered down this week, increase prednisone to 10 mg twice daily CM, will assess symptoms, will need to follow-up with her clay plant treater on discharge -06/29: Symptoms do seem to be improving slightly on prednisone and with antibiotics, continue present management #paroxysmal Afib/flutter - Patient intermittently in fib/flutter and then sinus rhythm, continue home metoprolol and Eliquis -06/29: Seems to intermittently be in A-fib and then flutter with variable block and then sinus rhythm, monitoring on telemetry, echo as above #Chronic pericardial effusion - Unchanged on CT scan - Assessing echo as above but again this is unchanged -06/29: Echo with trivial pericardial effusion Chronic medical problems and/or problems not being actively addressed during today's encounter: #GERD -Continue PPI #Hypertension - Continue home amlodipine and metoprolol -Add back RACQUEL when verified blood pressure tolerating #DVT ppx: Not indicated, chronically on Eliquis Gia Diaz MD Charges/Coding Visit Charges Inpatient E&M: 40923 Subs Hosp L2
--- NOTE | 2025-06-29 18:09 | PN.HOSP_ITS ---
Reason for Visit
[2025-06-29 21:17] VITALS: BP 116/62; PULSE 89; RESP 16; TEMP 36.4; O2SAT 96
[2025-06-30 03:30] VITALS: BP 116/63; PULSE 79; RESP 16; TEMP 36.6; O2SAT 99
[2025-06-30 09:00] VITALS: BP 119/64; PULSE 87; RESP 18; TEMP 36.4; O2SAT 100
[2025-06-30 09:08] VITALS: BP 119/64; PULSE 87
[2025-06-30] MEDS: Metoprolol(XL)Succ 50 MG Tablet PO (09:08)
[2025-06-30] MEDS: APIXABAN 5 MG TABLET PO ×2 (09:08→21:38)
[2025-06-30] MEDS: Azithromycin 500 MG in 0.9% Normal Saline (250mL Bag) 250 ML 250 MG IV (09:10)
[2025-06-30 09:38] LABS: Hematocrit 30.1 % (37-47); Hemoglobin 9.2 g/dL (12.0-15.0); Immature Granulocytes Count 0.020 X10^3/uL (0.0-0.0); Mean Corp Hgb Conc 30.6 g/dL (32-36); Mean Corpuscular Volume 84.6 fL (81-99); Mean Platelet Vol. 10.7 fl (6.2-12.0); NRBC Flagged by Analyzer 0 % (0-5); POSITIVE DIFFERENTIAL YES; Platelet Count 227 K/mm3 (150-450); RBC Distribution Width CV 14.3 % (11.6-14.6); RBC Distribution Width SD 44.3 fl (35.1-43.9); Red Blood Count 3.56 M/mm3 (4.2-5.4); White Blood Count 5.9 K/mm3 (4.4-11.0)
[2025-06-30 10:30] LABS: Anion Gap 9 (5-15); BUN 15 mg/dL (4-19); BUN/Creat Ratio 26.1 RATIO (10-20); Calcium,Total 9.2 mg/dL (7.6-11.0); Carbon Dioxide 27.1 mmol/L (21.0-32.0); Chloride 103 mmol/L (98-108); Estimated Creatinine Clearance 55.13 ml/min (50-250); Glucose 109 mg/dL (70-99); Potassium 4.2 mmol/L (3.3-5.1)
[2025-06-30] MEDS: Ceftriaxone 2 GM in 0.9% Normal Saline (50mL MB+) 50 ML IV (10:55)
[2025-06-30 12:17] VITALS: BP 119/55; BP 123/54; BP 129/56; PULSE 88; PULSE 90; PULSE 94
[2025-06-30 15:41] VITALS: BP 129/66; PULSE 101; RESP 18; TEMP 36.8; O2SAT 94
--- NOTE | 2025-06-30 17:22 | PN.HOSP_ITS ---
Reason for Visit
--- NOTE | 2025-06-30 17:22 | PCM.PN.HOSP ---
Reason for Visit Chief Complaint: Syncope Subjective Subjective Slowly improving, feeling a little bit stronger, no shortness of breath or cough Objective Data Objective Data Vital Signs: Vital Signs Temp Pulse Resp BP Pulse Ox O2 Del Method O2 Flow Rate 98.2 F 101 H 18 129/66 H 94 Room Air 2 06/30/25 15:41 06/30/25 15:41 06/30/25 15:41 06/30/25 15:41 06/30/25 15:41 06/30/25 15:41 06/30/25 15:38 Oxygen Flow Rate (L/min) 2 Oxygen Delivery Method Room Air Weight: 70.8 kg Body Mass Index (BMI) 25.2 Intake & Output: Intake and Output for Last 24 Hours 06/28/25 06/29/25 06/30/25 22:59 23:59 23:59 Intake Total 1300 / 1420 900 / 900 540 / 540 Output Total 200 / 550 650 / 850 850 / 850 Balance 1100 / 870 250 / 50 -310 / -310 Medical Nutrition Assessment Dietitian: Malnutrition Criteria Met Start: 06/29/25 09:59 Freq: Status: Active Protocol: Document 06/29/25 09:59 SB (Rec: 06/29/25 10:00 SB [id number]) Nutrition Malnutrition Evidence of Yes Malnutrition Exists Malnutrition (severe Acute Illness/Injury ): Evidenced By Suboptimal Energy Intake (Severe),Weight Loss (Severe) Clinical Problem Acute Disease or Injury Related Malnutrition Etiology severe malnutrition related to inadequate oral intake Signs/Symptoms as evidenced by PO meeting <50% of estimated nutrition needs x 2-3 months and 8-14% unintentional weight loss x 1 month Status Active Problem Recommendation Dietitian Adjust to regular, no added salt to optimize oral Recommendations/ intakes. Changes Continue 120mL EPHP TID with medpass. Will monitor weight trends. At time of discharge recommend pt follows a regular no added salt diet while PO intake is poor. If PO intakes improve recommend cardiac diet. Lab / Micro Data 06/30/25 08:59 06/30/25 08:59 Labs: Laboratory Results - last 24 hr 06/29/25 07:06: ACTH < 1.5 L 06/30/25 08:59: WBC 5.9, RBC 3.56 L, Hgb 9.2 L, Hct 30.1 L, MCV 84.6, MCH 25.8 L, MCHC 30.6 L, RDW Std Deviation 44.3 H, RDW Coeff of [place] 14.3, Plt Count 227, MPV 10.7, Immature Gran % (Auto) 0.300, Neut % (Auto) 85.0 H, Lymph % (Auto) 7.3 L, [place] % (Auto) 7.0, Eos % (Auto) 0.2, Baso % (Auto) 0.2, Absolute Neuts (auto) 5.0, Absolute Lymphs (auto) 0.43 L, Nucleated RBC % 0, Sodium 139, Potassium 4.2, Chloride 103, Carbon Dioxide 27.1, Anion Gap 9, BUN 15, Creatinine 0.58 L, Estim Creat Clear Calc 55.13, Est GFR (MDRD) Non-Af 93, BUN/Creatinine Ratio 26.1 H, Glucose 109 H, Calcium 9.2 Micro: Microbiology 06/29/25 16:25 Urine, Clean Catch Legionella Antigen - Final 06/29/25 16:25 Urine, Clean Catch Streptococcus pneumoniae Antigen (M - Final 06/29/25 10:45 Mucosa - Nasopharyngeal Coronavirus COVID-19 PCR - Final 06/29/25 10:45 Mucosa - Nasopharyngeal Respiratory Panel (PCR) - Final Physical Exam Narrative General: Alert, oriented, no apparent distress, appears more comfortable HEENT: Atraumatic, normocephalic Eyes: Anicteric, normal conjunctiva, extraocular movements grossly intact Neck: Supple Respiratory: Diminished to the bases, normal respiratory effort Cardiovascular: Regular rate GI: Soft, nontender, nondistended Extremities: No edema Musculoskeletal: Moving all extremities Neuro: No overt focal neurological deficits Skin: No rashes appreciated Psych: Cooperative Assessment & Plan Assessment/Plan (1) Syncope: PLAN: Plan # Syncope -CT head no acute process, CTA no PE and pericardial effusion unchanged from previous -Patient did get lightheaded when going from lying to standing so they are unable to continue orthostats -EKG A-fib/flutter, intermittently sinus rhythm on the monitor with PACs - Continue metoprolol and Eliquis - Not in RVR - Repeat echo - After further discussion patient had been on 20 mg of prednisone while at [place] and this past week tapered down, over the past several days she has been more lightheaded, query if this could be a component of adrenal insufficiency - We will go back up to 20 mg of prednisone and will give 10 twice daily, cortisol is low, will need to follow-up with endocrinology on discharge -06/29: Suspect this happened as patient was developing underlying infection but also going down on prednisone at the same time, feeling slightly better now that she is on antibiotics and higher dose of prednisone, continue PT/OT, continue current management. Echocardiogram with trivial pericardial effusion, EF of 65% and stage I diastolic dysfunction -06/30: Improving daily with the increased prednisone and treatment of underlying infection, work with PT/OT, hopeful to DC home in 1 to 2 days # Fever -06/29:- Patient had fever of 100.4 overnight with low-grade tachycardia. 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 -06/29: Symptoms do seem to be improving slightly on prednisone and with antibiotics, continue present management -06/30: Improving on the prednisone, continue 10 twice daily #paroxysmal Afib/flutter - Patient intermittently in fib/flutter and then sinus rhythm, continue home metoprolol and Eliquis -06/29: Seems to intermittently be in A-fib and then flutter with variable block and then sinus rhythm, monitoring on telemetry, echo as above -06/30: Being monitored on telemetry Chronic medical problems and/or problems not being actively addressed during today's encounter: #GERD -Continue PPI #Hypertension - Continue home amlodipine and metoprolol -Add back RACQUEL when verified blood pressure tolerating #Chronic pericardial effusion - Unchanged on CT scan -Echo with trivial pericardial effusion #DVT ppx: Not indicated, chronically on Eliquis Gia Diaz MD Time spent in the patient's overall evaluation,decision-making process, review of diagnostic data, adjustment of management, discussion with other providers, nursing nursing and ancillary staff involved in patient's care documentation, 39 Minutes Charges/Coding Visit Charges Inpatient E&M: 25520 Subs Hosp L2
[2025-06-30 21:36] VITALS: BP 125/61; PULSE 88; RESP 16; TEMP 36.6; O2SAT 94
[2025-07-01 03:22] VITALS: BMI 25.6
[2025-07-01 03:30] VITALS: BP 133/71; PULSE 85; RESP 16; TEMP 36.6; O2SAT 95
[2025-07-01 05:08] LABS: Hematocrit 27.5 % (37-47); Hemoglobin 8.3 g/dL (12.0-15.0); Immature Granulocytes Count 0.050 X10^3/uL (0.0-0.0); Mean Corp Hgb Conc 30.2 g/dL (32-36); Mean Corpuscular Volume 84.9 fL (81-99); Mean Platelet Vol. 9.4 fl (6.2-12.0); NRBC Flagged by Analyzer 0 % (0-5); POSITIVE DIFFERENTIAL YES; Platelet Count 232 K/mm3 (150-450); RBC Distribution Width CV 14.4 % (11.6-14.6); RBC Distribution Width SD 45.0 fl (35.1-43.9); Red Blood Count 3.24 M/mm3 (4.2-5.4); White Blood Count 5.0 K/mm3 (4.4-11.0)
[2025-07-01 05:36] LABS: Anion Gap 10 (5-15); BUN 18 mg/dL (4-19); BUN/Creat Ratio 32.8 RATIO (10-20); Calcium,Total 8.9 mg/dL (7.6-11.0); Carbon Dioxide 23.3 mmol/L (21.0-32.0); Chloride 106 mmol/L (98-108); Estimated Creatinine Clearance 59.85 ml/min (50-250); Glucose 142 mg/dL (70-99); Potassium 4.5 mmol/L (3.3-5.1)
[2025-07-01 07:03] VITALS: O2SAT 93
[2025-07-01 09:09] VITALS: BP 135/52; PULSE 93; RESP 16; TEMP 36.6; O2SAT 95
[2025-07-01] MEDS: APIXABAN 5 MG TABLET PO (09:13)
[2025-07-01 09:14] VITALS: PULSE 93
[2025-07-01] MEDS: Metoprolol(XL)Succ 50 MG Tablet PO (09:14)
[2025-07-01] MEDS: Ceftriaxone 2 GM in 0.9% Normal Saline (50mL MB+) 50 ML IV (09:30)
[2025-07-01] MEDS: Azithromycin 500 MG in 0.9% Normal Saline (250mL Bag) 250 ML 250 MG IV (10:28)
--- NOTE | 2025-07-01 11:44 | DCINST_ITS ---
Discharge Instructions
--- NOTE | 2025-07-01 11:44 | PCM.DC ---
Discharge Instructions DC O2, CPAP, BIPAP needs Home O2 Discharge instructions: No Dressing / Incision Discharge Activity: - (Increase activity as tolerated) Follow Up Care Test Results: Test results from this visit will be discussed in further detail at your follow-up appointment, if applicable. Discharge Plan Admission Admit Date/Time: 06/28/25 15:41 Primary Reason for Your Visit: Presyncope/syncope Attending Provider: Gia Diaz Primary Care Provider: Gary Merrill Instructions Patient Instructions: ED Fall Prevention Additional Instructions / Restrictions: DISCHARGE INSTRUCTIONS PLEASE READ *Please take this with you to your next doctors appointment* - You will be discharged temporarily on 10 mg of prednisone twice daily for your adrenal insufficiency, it will be very important that you contact Dr. Malhotra's office on discharge to schedule a follow-up appointment, you will continue this prednisone dose until you see and/or discuss with Dr. Malhotra -You will be discharged on 5 days of an antibiotic, Levaquin - Additionally, your metoprolol succinate was decreased to 50 mg daily and you tolerated this well, would advise going back to 50 mg daily until discussing with your primary care physician -Please call your primary care provider's office upon discharge to schedule a hospital follow up within 1 week. -For any concerning signs or symptoms please call 911 or proceed to the nearest emergency department Discharge Orders/Prescriptions Prescriptions: New prednisone 10 mg Tablet 10 mg PO BIDCM 14 Days Qty: 28 0RF levofloxacin 750 mg tablet 750 mg PO DAILY 5 Days Qty: 5 0RF Continued atorvastatin 40 mg tablet 40 mg PO DAILY melatonin 3 mg tablet 3 mg PO HS PRN (Reason: sleep) tizanidine 4 mg capsule 4 mg PO Q8H PRN (Reason: muscle spasticity) cholecalciferol (vitamin D3) 50 mcg (2,000 unit) capsule 50 mcg PO QDAY amlodipine 5 mg tablet 5 mg PO DAILY acetaminophen 500 mg tablet 1,000 mg PO Q8H PRN (Reason: Pain Score 1-5) Eliquis 5 mg Tablet 5 mg PO BID 30 Days Qty: 60 0RF Patient Comments: HOLD 7 DAYS PRIOR TO PROCEDURE PER pantoprazole 40 mg Tablet,Delayed Release (Dr/Ec) 40 mg PO DAILY Qty: 30 0RF ondansetron HCl 8 mg tablet 8 mg PO Q8H PRN (Reason: nausea and vomiting) Patient Comments: take 1 tablet by mouth every 8 hours if needed for nausea and vomiting diphenoxylate-atropine [Lomotil] 2.5-0.025 mg tablet 1 tab PO QHS PRN (Reason: diarrhea) lisinopril 40 mg tablet 20 mg PO DAILY Patient Comments: changed from 40mg to20mg about a month ago told to stop and start it again 07/03 gabapentin 300 mg capsule 300 mg PO TID Changed metoprolol succinate 50 MG tablet 50 mg PO DAILY 30 Days Qty: 30 0RF Rx Instructions: Hold if heart rate less than 60/min Discontinued prednisone 5 mg tablet 5 mg PO DAILY Qty: 100 3RF Patient Comments: TAKING 10 MG DAILY IF SICK Rx Instructions: double dose for fever/acute illness dicyclomine 10 mg capsule 10 mg PO BID PRN (Reason: abdominal pain) ibuprofen [Advil] 200 mg tablet 200 mg PO TID PRN (Reason: pain) cyclobenzaprine 5 mg tablet 5 mg PO Q8H PRN PRN (Reason: pain) Patient Comments: does not want to take this again. Bad reaction per and pt Referrals / Follow Up: Gary Merrill MD [Primary Care Provider, Family Practice] - Within 1 Week Roland Malhotra MD [Med Staff - Courtesy Staff, Endocrinology] Referral Note: it will be very important that you contact Dr. Malhotra's office on discharge to schedule a follow-up appointment Disposition Disposition (needs filled in before D/C Order can be placed): Home, Self Care
--- NOTE | 2025-07-01 11:47 | PCM.DC.SUM ---
Providers Date of Admission: 06/28/25 Date of Discharge: 07/01/25 Primary Care Physician: Dr. Gary Merrill MD Reason For Visit: SYNCOPE Diagnosis Discharge Diagnosis (1) Syncope: Status: Acute Code(s): R55 - Syncope and collapse Plan # Syncope #Early pneumonia #Adrenal insufficiency #Pafib/flutter #GERD #Hypertension #Chronic pericardial effusion #Melanoma Medications at Discharge Home Medications atorvastatin 40 mg tablet 40 mg PO DAILY cholesterol 09/24/20 apixaban 5 mg tablet (Eliquis) 5 mg PO BID blood thinner 30 days #60 tabs 07/27/23 pantoprazole 40 mg tablet,delayed release 40 mg PO DAILY #30 tabs 08/29/23 melatonin 3 mg tablet 3 mg PO HS PRN sleep 10/18/23 ondansetron HCl 8 mg tablet 8 mg PO Q8H PRN nausea and vomiting 11/02/23 tizanidine 4 mg capsule 4 mg PO Q8H PRN muscle spasticity 03/27/24 lisinopril 40 mg tablet 20 mg PO DAILY hypertension 01/22/25 diphenoxylate-atropine 2.5 mg-0.025 mg tablet (Lomotil) 1 tab PO QHS PRN diarrhea 01/28/25 amlodipine 5 mg tablet 5 mg PO DAILY hypertension 03/27/25 cholecalciferol (vitamin D3) 50 mcg (2,000 unit) capsule 50 mcg PO QDAY vitamin 03/27/25 acetaminophen 500 mg tablet 1,000 mg PO Q8H PRN Pain Score 1-5 06/25/25 gabapentin 300 mg capsule 300 mg PO TID pain 06/29/25 levofloxacin 750 mg tablet 750 mg PO DAILY 5 days #5 tabs 07/01/25 metoprolol succinate 50 mg tablet,extended release 24 hr 50 mg PO DAILY heart rate 30 days #30 tabs 07/01/25 prednisone 10 mg tablet 10 mg PO BIDCM 14 days #28 tabs 07/01/25 Hospital Course Procedures Transthoracic echo Summary of Care Provided Minutes Spent on Discharge: 35 Hospital Course: 79-year-old female history of GERD, hypertension, DVT, A-fib, melanoma, adrenal insufficiency on chronic steroid therapy presented [facility] ED 06/28/2025 with syncopal episode. She felt lightheaded and then passed out prompting to bring her to the ED. In the ED temp 99.2, heart rate 82, respiratory rate 19 blood pressure 108/60, pulse ox initially listed as 87% on room air but subsequently 97 100% on 2 L so unclear how accurate that was. White count within normal limits, hemoglobin of 10, BMP with a BUN of 12 and creatinine 0.76. Trope slightly elevated 32 with repeat of 27. UA not suggestive of UTI. Chest x-ray with suspected pleural effusion with a small effusion noted last month as well. CTA obtained with small to moderate pericardial effusion which was unchanged from 06/10 and bilateral pleural effusions increased from 06/[address] head no acute process. Attempted to do orthostats however patient became symptomatic and they were unable to obtain. Hospitalist contacted for admission for syncope. On discussion with patient and she had been actively going down on her steroids, she takes 5 mg daily at baseline for adrenal insufficiency but given her recent hospitalizations had been increased to 20 mg and over the course of the week she was going down and her lightheaded symptoms worsened with the down titration. During her hospitalization she did spike a temperature and only nidus of suspected infection was bibasilar airspace opacities suspected to be early pneumonia as infectious workup otherwise negative. 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 On day of discharge no further lightheadedness and patient feeling stronger and better overall. She has an appointment in the a.m. with her PCP and feels comfortable being discharged home on the antibiotics and increased dose of prednisone. Discussed continuing this prednisone dose and following up closely in Dr. Malhotra's office for further plans for taper. No new or acute complaints on day of discharge. Discharge instructions as follows: - You will be discharged temporarily on 10 mg of prednisone twice daily for your adrenal insufficiency, it will be very important that you contact Dr. Malhotra's office on discharge to schedule a follow-up appointment, you will continue this prednisone dose until you see and/or discuss with Dr. Malhotra -You will be discharged on 5 days of an antibiotic, Levaquin - Additionally, your metoprolol succinate was decreased to 50 mg daily and you tolerated this well, would advise going back to 50 mg daily until discussing with your primary care physician -Please call your primary care provider's office upon discharge to schedule a hospital follow up within 1 week. -For any concerning signs or symptoms please call 911 or proceed to the nearest emergency department Physical Exam Narrative General: Alert, oriented, no apparent distress, appears more comfortable HEENT: Atraumatic, normocephalic Eyes: Anicteric, normal conjunctiva, extraocular movements grossly intact Neck: Supple Respiratory: No overt wheezes or rhonchi, normal respiratory effort Cardiovascular: Regular rate GI: Soft, nontender, nondistended Extremities: No edema Musculoskeletal: Moving all extremities Neuro: No overt focal neurological deficits Skin: No rashes appreciated Psych: Cooperative Medical Records Data Medical Nutrition Assessment Dietitian: Malnutrition Criteria Met Start: 06/29/25 09:59 Freq: Status: Active Protocol: Document 06/29/25 09:59 SB (Rec: 06/29/25 10:00 SB [id number]) Nutrition Malnutrition Evidence of Yes Malnutrition Exists Malnutrition (severe Acute Illness/Injury ): Evidenced By Suboptimal Energy Intake (Severe),Weight Loss (Severe) Clinical Problem Acute Disease or Injury Related Malnutrition Etiology severe malnutrition related to inadequate oral intake Signs/Symptoms as evidenced by PO meeting <50% of estimated nutrition needs x 2-3 months and 8-14% unintentional weight loss x 1 month Status Active Problem Recommendation Dietitian Adjust to regular, no added salt to optimize oral Recommendations/ intakes. Changes Continue 120mL EPHP TID with medpass. Will monitor weight trends. At time of discharge recommend pt follows a regular no added salt diet while PO intake is poor. If PO intakes improve recommend cardiac diet. Weight / BMI Weight Weight: 72 kg Body Mass Index (BMI) 25.6 ABG / Lab / Microbiology Data 07/01/25 04:49 07/01/25 04:49 Laboratory: Laboratory Results - last 24 hr 06/29/25 07:06: ACTH < 1.5 L 07/01/25 04:49: WBC 5.0, RBC 3.24 L, Hgb 8.3 L, Hct 27.5 L, MCV 84.9, MCH 25.6 L, MCHC 30.2 L, RDW Std Deviation 45.0 H, RDW Coeff of [place] 14.4, Plt Count 232, MPV 9.4, Immature Gran % (Auto) 1.000 H, Neut % (Auto) 88.8 H, Lymph % (Auto) 5.8 L, [place] % (Auto) 4.4, Eos % (Auto) 0.0, Baso % (Auto) 0.0, Absolute Neuts (auto) 4.4, Absolute Lymphs (auto) 0.29 L, Nucleated RBC % 0, Sodium 139, Potassium 4.5, Chloride 106, Carbon Dioxide 23.3, Anion Gap 10, BUN 18, Creatinine 0.55 L, Estim Creat Clear Calc 59.85, Est GFR (MDRD) Non-Af 95, BUN/Creatinine Ratio 32.8 H, Glucose 142 H, Calcium 8.9 Microbiology: Microbiology 06/29/25 16:25 Urine, Clean Catch Legionella Antigen - Final 06/29/25 16:25 Urine, Clean Catch Streptococcus pneumoniae Antigen (M - Final 06/29/25 10:45 Mucosa - Nasopharyngeal Coronavirus COVID-19 PCR - Final 06/29/25 10:45 Mucosa - Nasopharyngeal Respiratory Panel (PCR) - Final D/C Instructions DC O2, CPAP, BIPAP Needs Home O2 Discharge instructions: No Meaningful Use Info Meaningful Use Meaningful Use Diagnoses (Choose all that apply): None applicable Discharge Plan Admission Admit Date/Time: 06/28/25 15:41 Primary Reason for Your Visit: Presyncope/syncope Attending Provider: Gia Diaz Primary Care Provider: Gary Merrill Instructions Patient Instructions: ED Fall Prevention Additional Instructions / Restrictions: DISCHARGE INSTRUCTIONS PLEASE READ *Please take this with you to your next doctors appointment* - You will be discharged temporarily on 10 mg of prednisone twice daily for your adrenal insufficiency, it will be very important that you contact Dr. Malhotra's office on discharge to schedule a follow-up appointment, you will continue this prednisone dose until you see and/or discuss with Dr. Malhotra -You will be discharged on 5 days of an antibiotic, Levaquin - Additionally, your metoprolol succinate was decreased to 50 mg daily and you tolerated this well, would advise going back to 50 mg daily until discussing with your primary care physician -Please call your primary care provider's office upon discharge to schedule a hospital follow up within 1 week. -For any concerning signs or symptoms please call 911 or proceed to the nearest emergency department Discharge Orders/Prescriptions Prescriptions: New prednisone 10 mg Tablet 10 mg PO BIDCM 14 Days Qty: 28 0RF levofloxacin 750 mg tablet 750 mg PO DAILY 5 Days Qty: 5 0RF Continued atorvastatin 40 mg tablet 40 mg PO DAILY melatonin 3 mg tablet 3 mg PO HS PRN (Reason: sleep) tizanidine 4 mg capsule 4 mg PO Q8H PRN (Reason: muscle spasticity) cholecalciferol (vitamin D3) 50 mcg (2,000 unit) capsule 50 mcg PO QDAY amlodipine 5 mg tablet 5 mg PO DAILY acetaminophen 500 mg tablet 1,000 mg PO Q8H PRN (Reason: Pain Score 1-5) Eliquis 5 mg Tablet 5 mg PO BID 30 Days Qty: 60 0RF Patient Comments: HOLD 7 DAYS PRIOR TO PROCEDURE PER pantoprazole 40 mg Tablet,Delayed Release (Dr/Ec) 40 mg PO DAILY Qty: 30 0RF ondansetron HCl 8 mg tablet 8 mg PO Q8H PRN (Reason: nausea and vomiting) Patient Comments: take 1 tablet by mouth every 8 hours if needed for nausea and vomiting diphenoxylate-atropine [Lomotil] 2.5-0.025 mg tablet 1 tab PO QHS PRN (Reason: diarrhea) lisinopril 40 mg tablet 20 mg PO DAILY Patient Comments: changed from 40mg to20mg about a month ago told to stop and start it again 07/03 gabapentin 300 mg capsule 300 mg PO TID Changed metoprolol succinate 50 MG tablet 50 mg PO DAILY 30 Days Qty: 30 0RF Rx Instructions: Hold if heart rate less than 60/min Discontinued prednisone 5 mg tablet 5 mg PO DAILY Qty: 100 3RF Patient Comments: TAKING 10 MG DAILY IF SICK Rx Instructions: double dose for fever/acute illness dicyclomine 10 mg capsule 10 mg PO BID PRN (Reason: abdominal pain) ibuprofen [Advil] 200 mg tablet 200 mg PO TID PRN (Reason: pain) cyclobenzaprine 5 mg tablet 5 mg PO Q8H PRN PRN (Reason: pain) Patient Comments: does not want to take this again. Bad reaction per and pt Referrals / Follow Up: Gary Merrill MD [Primary Care Provider, Family Practice] - Within 1 Week Roland Malhotra MD [Med Staff - Courtesy Staff, Endocrinology] Referral Note: it will be very important that you contact Dr. Malhotra's office on discharge to schedule a follow-up appointment Disposition Disposition (needs filled in before D/C Order can be placed): Home, Self Care Charges/Coding Visit Charges Inpatient E&M: 73273 Disch Hosp >30min
--- NOTE | 2025-07-01 12:05 | CASEMGMT ---
Patient has order for dishcarge. Patient ambulating 100ft contact guard with therapy. RN CM in to discuss needs at discharge, at bedside. Patient and wishe to discharge home with resumption of her outpatient therapy that she was active with prior to admission. Patient and deny further needs or help at discharge. Patient had no further questions or concerns.
--- NOTE | 2025-07-01 12:25 | PHA.DC_ITS ---
Pharmacy DC Med Counseling
--- NOTE | 2025-07-01 12:25 | PHA.DC.COU.R ---
Pharmacy [facility] has performed discharge medication counseling for this patient. The patient was counseled on the following discharge medications and changes in medications for homegoing review. - Levofloxacin 750 mg tablet, Prednisone 10 mg tablet The Reason for Use, instructions for use, and potential side effects were reviewed for all new medications. The patient's questions regarding all of their medications were answered. The patient was able to verbally demonstrate an understanding of their discharge medications. Medications at Discharge Home Medications atorvastatin 40 mg tablet 40 mg PO DAILY cholesterol 09/24/20 apixaban 5 mg tablet (Eliquis) 5 mg PO BID blood thinner 30 days #60 tabs 07/27/23 pantoprazole 40 mg tablet,delayed release 40 mg PO DAILY reflux #30 tabs 08/29/23 melatonin 3 mg tablet 3 mg PO HS PRN sleep 10/18/23 ondansetron HCl 8 mg tablet 8 mg PO Q8H PRN nausea and vomiting 11/02/23 tizanidine 4 mg capsule 4 mg PO Q8H PRN muscle spasticity 03/27/24 lisinopril 40 mg tablet 20 mg PO DAILY hypertension 01/22/25 diphenoxylate-atropine 2.5 mg-0.025 mg tablet (Lomotil) 1 tab PO QHS PRN diarrhea 01/28/25 amlodipine 5 mg tablet 5 mg PO DAILY hypertension 03/27/25 cholecalciferol (vitamin D3) 50 mcg (2,000 unit) capsule 50 mcg PO QDAY vitamin 03/27/25 acetaminophen 500 mg tablet 1,000 mg PO Q8H PRN Pain Score 1-5 06/25/25 gabapentin 300 mg capsule 300 mg PO TID pain 06/29/25 levofloxacin 750 mg tablet 750 mg PO DAILY 5 days #5 tabs 07/01/25 metoprolol succinate 50 mg tablet,extended release 24 hr 50 mg PO DAILY heart rate 30 days #30 tabs 07/01/25 prednisone 10 mg tablet 10 mg PO BIDCM 14 days #28 tabs 07/01/25
[2025-07-01 15:02] VITALS: BP 110/63; PULSE 90; RESP 16; TEMP 36.8; O2SAT 100
== END 2025-07-01 15:35 | disposition home or self-care (01) | DRG 193 ==
LOC: ED 15:25 → PCU 15:37
PROVIDERS: Admitting Provider Internal Medicine; Emergency Provider Emergency Medicine; PCP Family Medicine; Visit Provider Internal Medicine
DX: J18.9 Pneumonia, unspecified organism (principal); E43 Unspecified severe protein-calorie malnutrition; I31.39 Other pericardial effusion (noninflammatory); I48.92 Unspecified atrial flutter; J90 Pleural effusion, not elsewhere classified; E27.40 Unspecified adrenocortical insufficiency; C43.9 Malignant melanoma of skin, unspecified; I48.0 Paroxysmal atrial fibrillation; I10 Essential (primary) hypertension; E78.5 Hyperlipidemia, unspecified; K21.9 Gastro-esophageal reflux disease without esophagitis; I25.2 Old myocardial infarction; R55 Syncope and collapse; Z86.16 Personal history of COVID-19; Z86.711 Personal history of pulmonary embolism; Z82.49 Family history of ischemic heart disease and other diseases of the circulatory system; Z80.8 Family history of malignant neoplasm of other organs or systems; Z79.899 Other long term (current) drug therapy; Z79.01 Long term (current) use of anticoagulants; Z87.891 Personal history of nicotine dependence; Z86.718 Personal history of other venous thrombosis and embolism; Z68.25 Body mass index [BMI] 25.0-25.9, adult
CPT/HCPCS: 36415; 70450; 71046; 71275; 80048; 81001; 82024; 82533; 83735; 84145; 84484; 85025; 85610; 85730; 87086; 87088; 87449; 87633; 87635; 93005; 93308; 94668; 97116; 97162; 97166; 97530; 97802; 99285; Q9967; A4216; J0696; J2405

== ENCOUNTER → 2025-07-09 | Outpatient (CLI) | payer MEDICARE, OTHER, SELFPAY ==
[2025-07-09 10:02] LABS: Hematocrit 35.4 % (37-47); Hemoglobin 10.6 g/dL (12.0-15.0); Mean Corp Hgb Conc 29.9 g/dL (32-36); Mean Corpuscular Volume 85.3 fL (81-99); Mean Platelet Vol. 10.2 fl (6.2-12.0); POSITIVE COUNT YES; POSITIVE MORPHOLOGY YES; Platelet Count 328 K/mm3 (150-450); RBC Distribution Width CV 14.6 % (11.6-14.6); RBC Distribution Width SD 45.2 fl (35.1-43.9); Red Blood Count 4.15 M/mm3 (4.2-5.4); White Blood Count 9.5 K/mm3 (4.4-11.0)
[2025-07-09 10:09] LABS: Differential Indicated MANUAL DIFF
[2025-07-09 10:54] LABS: Neutrophil-Segmented 82 % (47-70); Total Cells Counted 100 (MANUAL DIFF)
[2025-07-09 10:59] LABS: AST(SGOT) 15 U/L (<=31); Alanine Aminotransfer ALT/SGPT 21 U/L (<=34); Albumin, Serum 4.1 g/dL (3.4-4.8); Alkaline Phosphatase 82 U/L (35-104); Anion Gap 12 (5-15); BUN 19 mg/dL (4-19); BUN/Creat Ratio 25.5 RATIO (10-20); Calcium,Total 9.8 mg/dL (7.6-11.0); Carbon Dioxide 26.1 mmol/L (21.0-32.0); Chloride 103 mmol/L (98-108); Globulin 2.5 g/dL (2.2-4.2); Glucose 76 mg/dL (70-99); Potassium 4.4 mmol/L (3.3-5.1)
== END | disposition home or self-care (01) ==
LOC: LAB 08:32
PROVIDERS: PCP Family Medicine; Referring Provider Student in an Organized Health Care Education/Training Program; Visit Provider Student in an Organized Health Care Education/Training Program
DX: K52.9 Noninfective gastroenteritis and colitis, unspecified (principal)
CPT/HCPCS: 36415; 80053; 85025

== ENCOUNTER → 2025-07-10 | Outpatient (CLI) | payer MEDICARE, OTHER, SELFPAY ==
[2025-07-15 09:09] LABS: Calprotectin, Stool 84 ug/g (0-120)
== END | disposition home or self-care (01) ==
PROVIDERS: PCP Family Medicine; Referring Provider Student in an Organized Health Care Education/Training Program; Visit Provider Student in an Organized Health Care Education/Training Program
DX: E78.5 Hyperlipidemia, unspecified (principal); I48.91 Unspecified atrial fibrillation; I10 Essential (primary) hypertension; E55.9 Vitamin D deficiency, unspecified
CPT/HCPCS: 83993; 87177; 87209; 87329; 87493

== ENCOUNTER 2025-07-16 14:10 | Outpatient (CLI) | payer MEDICARE, OTHER, SELFPAY ==
[2025-07-16 14:14] LABS: Mucous, Urine 0 SEEN /hpf (<or=2+); Red Blood Cells-Urine 0 SEEN /hpf (0-5)
[2025-07-16 14:45] LABS: Color, Urine Yellow (Yellow); Glucose, Dipstick Normal (Normal); Ketone-Dipstick Negative (Negative); Leukocyte Esterase-Dipstick 25 /ul (Negative); Nitrite-Dipstick Negative (Negative); Occult Blood-Urine Negative /ul (Negative); Protein-Dipstick Negative (Negative); Specific Gravity, Urine 1.010 (1.002-1.030); Urine Bilirubin Dipstick Negative (Negative)
[2025-07-16 14:50] LABS: Hematocrit 34.0 % (37-47); Hemoglobin 10.3 g/dL (12.0-15.0); Mean Corp Hgb Conc 30.3 g/dL (32-36); Mean Corpuscular Volume 85.9 fL (81-99); POSITIVE COUNT YES; POSITIVE DIFFERENTIAL YES; POSITIVE MORPHOLOGY YES; RBC Distribution Width CV 18.1 % (11.6-14.6); RBC Distribution Width SD 50.4 fl (35.1-43.9); Red Blood Count 3.96 M/mm3 (4.2-5.4); White Blood Count 4.5 K/mm3 (4.4-11.0)
[2025-07-16 14:53] LABS: Differential Indicated MANUAL DIFF
[2025-07-16 14:54] LABS: Squamous Epithelial Cells - UA 0-5 SEEN /hpf (5-10)
[2025-07-16 16:41] LABS: Total Cells Counted 100 (MANUAL DIFF)
[2025-07-16 18:39] LABS: AST(SGOT) 18 U/L (<=31); Alanine Aminotransfer ALT/SGPT 19 U/L (<=34); Albumin, Serum 4.0 g/dL (3.4-4.8); Alkaline Phosphatase 77 U/L (35-104); Anion Gap 14 (5-15); BUN 22 mg/dL (4-19); BUN/Creat Ratio 31.3 RATIO (10-20); Calcium,Total 9.2 mg/dL (7.6-11.0); Carbon Dioxide 22.9 mmol/L (21.0-32.0); Chloride 101 mmol/L (98-108); Cholesterol 163 mg/dL (<=200); Globulin 2.5 g/dL (2.2-4.2); Glucose 98 mg/dL (70-99); Low Density Lipoprotein Calc. 68 mg/dL; Magnesium 2.2 mg/dL (1.5-2.2); Potassium 4.3 mmol/L (3.3-5.1); Triglycerides 198 mg/dL; Very Low Density Lipoprotein 40 mg/dL (5-40); Vitamin D,25 Hydroxy 42.9 ng/mL (30-100); cholesterol:hdl ratio screen 2.60
[2025-07-16 18:52] LABS: Neutrophil-Band 14 % (0-5); Neutrophil-Segmented 67 % (47-70); Nucleated Red Bld Cells,Manual 1 % (0-5)
== END 2025-07-16 23:59 | disposition home or self-care (01) ==
LOC: MFPLAB 14:11
PROVIDERS: PCP Family Medicine; Visit Provider Family Medicine
DX: R09.89 Other specified symptoms and signs involving the circulatory and respiratory systems (principal); I48.91 Unspecified atrial fibrillation; I10 Essential (primary) hypertension; E78.5 Hyperlipidemia, unspecified; E55.9 Vitamin D deficiency, unspecified
CPT/HCPCS: 36415; 80053; 80061; 81001; 82306; 83735; 85025

== ENCOUNTER 2025-07-31 09:07 | Inpatient (IN) | payer MEDICARE, OTHER, SELFPAY ==
[2025-07-31] VITALS (16 sets, daily range): BP systolic 98–161; BP diastolic 51–105; PULSE 19–125; RESP 16–18; TEMP 36.4–37.7; O2SAT 88–99; BMI 27.8; BMI 27.3
--- NOTE | 2025-07-31 09:44 | CT_ITS ---
PROCEDURE: CTA CHEST W/WO CONTRAST 07/31/2025 REASON FOR EXAM: PLEURITIC BILAT CHEST PAIN, SYNCOPE, TACHYCARDIA TECHNIQUE: Procedure Code: [id number] Modality: CT Procedure: CTA CHEST W/WO CONTRAST Multiplanar Sagittal and Coronal images were obtained. CONTRAST: Isovue 370 VOLUME: 75 mL One or more dose reduction techniques were used (e.g., Automated exposure control, adjustment of the mA and/or kV according to patient size, use of iterative reconstruction technique). RADIATION DOSE SUMMARY: CTDlvol: 40.2 mGy DLP: 576.35 mGycm COMPARISON: CTA chest 06/28/2025. # of known CTs in the past 12 months: 1 # of known Cardiac Nuclear Medicine Studies in the past 12 months: 0 FINDINGS: Thoracic Aorta: No aneurysm. Atherosclerotic calcifications. Heart: Moderate cardiomegaly. Pericardial effusion. Atherosclerotic calcifications of the coronary arteries. Pulmonary Vessels: No evidence of pulmonary embolism. Hardware: Unremarkable. Lymph nodes: No lymphadenopathy. Lungs and pleura: Large left and small right pleural effusion with atelectasis. Upper Abdomen: Unremarkable. Bones: No acute bony abnormalities. CT/CTA Chest W/WO Contrast IMPRESSION: No evidence of pulmonary embolism. Bilateral pleural effusions may represent pulmonary edema or CHF. Reading Location: [facility]
--- NOTE | 2025-07-31 09:47 | EDS_ITS ---
HPI History of Present Illness Chief Complaint: Syncope Informant: patient, spouse/S.O. 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 Patient reports feeling lightheaded and ?faint? at the sink, attempted to catch self, then collapsed, regained consciousness shortly thereafter. She reports recurrent lightheadedness episodes occurring at least weekly, with intermittent syncope; has seen multiple doctors without a definitive cause. Denies chest pain, palpitations, shortness of breath, or severe headache prior to syncope. Over the last 4?5 days, increased weakness, fatigue, more daytime sleep, and poor appetite. Yesterday and the day before had epigastric burning/heartburn, gagging, nausea, and dysphagia (food ?bubbling up,? difficulty swallowing pizza), partially relieved with Tums. History of GI scope with removal of a tumor a couple years ago. This morning had gagging/coughing when EMS arrived; reports pleuritic pain across chest with breathing in recent days. Review of systems otherwise negative as above. [facility] Medical History Hypertension Adrenal insufficiency Syncope Septic shock Colitis Afib Type 2 CA (myocardial infarction) Neurologic disorder Cancer, metastatic Cerebral vascular disease Elevated troponin History of Holter monitoring Hx of malignant carcinoid tumor Weakness Chronic pain Obesity (BMI 30.0-34.9) History of syncope Generalized abdominal pain Wears glasses Arthritis Neuropathy History of pain when walking History of echocardiogram Cardiology follow-up encounter History of atrial fibrillation Syncopal episodes Metastatic melanoma Duodenal mass Post-menopausal History of steroid therapy Anemia History of immunosuppression therapy Seizures 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 Bilateral pulmonary embolism Pulmonary emboli Left leg DVT Anticoagulated Former smoker Mild cognitive impairment COVID-19 Polyneuropathy Essential hypertension GERD (gastroesophageal reflux disease) Hyperlipidemia Home Medications ?Medication ?Instructions ?Recorded ?Last Taken ?Type atorvastatin 40 mg tablet 40 mg PO DAILY cholesterol 0 09/24/20 07/30/25 History apixaban 5 mg tablet (Eliquis) 5 mg PO BID blood thinn er 30 days 07/27/23 07/30/25 Rx #60 tabs pantoprazole 40 mg tablet,delayed 40 mg PO DAILY reflu x #30 tabs 08/29/23 07/30/25 Rx release melatonin 3 mg tablet 3 mg PO HS PRN sleep 4 02/23/25 History ondansetron HCl 8 mg tablet 8 mg PO Q8H PRN nausea and vomiting 11/02/23 Unknown History tizanidine 4 mg capsule 4 mg PO Q8H PRN muscle spast icity 03/27/24 Unknown History diphenoxylate-atropine 2.5 1 tab PO QHS PRN diarrhea 0 01/28/25 Unknown History mg-0.025 mg tablet (Lomotil) amlodipine 5 mg tablet 5 mg PO DAILY hypertension 0 03/27/25 07/30/25 History cholecalciferol (vitamin D3) 50 50 mcg PO QDAY vitamin 03/27/25 07/30/25 History mcg (2,000 unit) capsule acetaminophen 500 mg tablet 1,000 mg PO Q8H PRN Pain S core 1-5 06/25/25 07/30/25 History metoprolol succinate 50 mg 50 mg PO DAILY heart rate 3 0 days 07/01/25 07/30/25 Rx tablet,extended release 24 hr #30 tabs duloxetine 20 mg capsule,delayed 20 mg PO QDAY 5 07/30/25 History release lisinopril 40 mg tablet 40 mg PO DAILY hypertension 07/10/25 07/30/25 History dicyclomine 10 mg capsule 10 mg PO BID PRN abdominal p ain 07/20/25 Unknown History hydrocortisone 10 mg tablet 10 mg PO BID 07/20/2512/19 History
--- NOTE | 2025-07-31 09:47 | EX.ED.DYSGE1 ---
HPI History of Present Illness Chief Complaint: Syncope Informant: patient, spouse/S.O. 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 Patient reports feeling lightheaded and ?faint? at the sink, attempted to catch self, then collapsed, regained consciousness shortly thereafter. She reports recurrent lightheadedness episodes occurring at least weekly, with intermittent syncope; has seen multiple doctors without a definitive cause. Denies chest pain, palpitations, shortness of breath, or severe headache prior to syncope. Over the last 4?5 days, increased weakness, fatigue, more daytime sleep, and poor appetite. Yesterday and the day before had epigastric burning/heartburn, gagging, nausea, and dysphagia (food ?bubbling up,? difficulty swallowing pizza), partially relieved with Tums. History of GI scope with removal of a tumor a couple years ago. This morning had gagging/coughing when EMS arrived; reports pleuritic pain across chest with breathing in recent days. Review of systems otherwise negative as above. [facility] Medical History Hypertension Adrenal insufficiency Syncope Septic shock Colitis Afib Type 2 MS (myocardial infarction) Neurologic disorder Cancer, metastatic Cerebral vascular disease Elevated troponin History of Holter monitoring Hx of malignant carcinoid tumor Weakness Chronic pain Obesity (BMI 30.0-34.9) History of syncope Generalized abdominal pain Wears glasses Arthritis Neuropathy History of pain when walking History of echocardiogram Cardiology follow-up encounter History of atrial fibrillation Syncopal episodes Metastatic melanoma Duodenal mass Post-menopausal History of steroid therapy Anemia History of immunosuppression therapy Seizures 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 Bilateral pulmonary embolism Pulmonary emboli Left leg DVT Anticoagulated Former smoker Mild cognitive impairment COVID-19 Polyneuropathy Essential hypertension GERD (gastroesophageal reflux disease) Hyperlipidemia Home Medications ?Medication ?Instructions ?Recorded ?Last Taken ?Type atorvastatin 40 mg tablet 40 mg PO DAILY cholesterol 09/24/20 07/30/25 History apixaban 5 mg tablet (Eliquis) 5 mg PO BID blood thinner 30 days 07/27/23 07/30/25 Rx #60 tabs pantoprazole 40 mg tablet,delayed 40 mg PO DAILY reflux #30 tabs 08/29/23 07/30/25 Rx release melatonin 3 mg tablet 3 mg PO HS PRN sleep 10/18/23 02/23/25 History ondansetron HCl 8 mg tablet 8 mg PO Q8H PRN nausea and vomiting 11/02/23 Unknown History tizanidine 4 mg capsule 4 mg PO Q8H PRN muscle spasticity 03/27/24 Unknown History diphenoxylate-atropine 2.5 1 tab PO QHS PRN diarrhea 01/28/25 Unknown History mg-0.025 mg tablet (Lomotil) amlodipine 5 mg tablet 5 mg PO DAILY hypertension 03/27/25 07/30/25 History cholecalciferol (vitamin D3) 50 50 mcg PO QDAY vitamin 03/27/25 07/30/25 History mcg (2,000 unit) capsule acetaminophen 500 mg tablet 1,000 mg PO Q8H PRN Pain Score 1-5 06/25/25 07/30/25 History metoprolol succinate 50 mg 50 mg PO DAILY heart rate 30 days 07/01/25 07/30/25 Rx tablet,extended release 24 hr #30 tabs duloxetine 20 mg capsule,delayed 20 mg PO QDAY 07/09/25 07/30/25 History release lisinopril 40 mg tablet 40 mg PO DAILY hypertension 07/10/25 07/30/25 History dicyclomine 10 mg capsule 10 mg PO BID PRN abdominal pain 07/20/25 Unknown History hydrocortisone 10 mg tablet 10 mg PO BID 07/20/25 07/30/25 History phenazopyridine 100 mg tablet 100 mg PO TID PRN pain 07/20/25 Unknown History psyllium 1 tbsp PO QDAY 07/20/25 07/30/25 History [email or web address] See Rx Instructions .Route .COMPLEX 07/31/25 07/30/25 History Allergy/AdvReac Type Severity Reaction Status Date / Time Sulfa (Sulfonamide Allergy Severe Swelling Verified 07/31/25 09:12 Antibiotics) amoxicillin AdvReac Severe Diarrhea Verified 07/31/25 09:12 sulfamethoxazole (From AdvReac Severe Anaphylaxis Verified 07/31/25 09:12 Bactrim) trimethoprim (From Bactrim) AdvReac Severe Swelling Verified 07/31/25 09:12 Family History Brother Alcoholism Asthma Myocardial infarction, Onset Age: 52 Seizures Skin cancer Sister CVA (cerebral vascular accident) Asthma Grandfather Asthma Father Myocardial infarction, Onset Age: 46 Had at age 46 & 62 Mother Myocardial infarction, Onset Age: 82 Surgical History History of tubal ligation Hx of tonsillectomy Hx of surgical procedure History of total left hip replacement History of amputation of finger History of right hip replacement History of cataract surgery History of eye surgery Social History household members: spouse Smoking Status: Former smoker Tobacco: How many years used: 30 how long ago did patient quit smokin years ago second hand exposure: No alcohol intake: current alcohol intake frequency: holidays/special occasions only Alcohol type: wine substance use type: does not use amy/gnosticism: None seatbelt use: always ROS ROS ED Constitutional Constitutional ED: Denies chills or fever(s) Eyes Eyes: Denies change in vision or diplopia ENT ENT ED: Denies rhinorrhea or sore throat Cardiovascular Cardiovascular: Reports as per HPI, chest pain, lightheadedness and syncope; Denies palpitations or radiating jaw, neck or arm pain Respiratory/Chest Respiratory/Chest: Denies cough or dyspnea Gastrointestinal Gastrointestinal: Denies abdominal pain, diarrhea, nausea or vomiting Genitourinary Genitourinary ED: Denies dysuria or hematuria Musculoskeletal Musculoskeletal: Denies back pain or neck pain Integumentary Denies abscess or rash Neurologic Neurologic: Reports as per HPI and syncope; Denies headache(s), paresthesias, seizures or weakness Psychiatric Psychiatric: Denies anxiety or suicidal thoughts EXAM Physical Exam Const Vital Signs: 07/31/25 09:08 07/31/25 09:20 07/31/25 09:44 Temperature 98.4 F Temperature Source Oral Pulse Rate 19 L Pulse Rate [Lying] 106 H Pulse Rate [Sitting (for 1 minute prior to obtaining)] 116 H Pulse Rate [Standing (for 1 minute prior to obtaining)] 125 H Respiratory Rate 18 Respiratory Pattern Normal Blood Pressure 155/78 H Blood Pressure [Lying] 133/61 H Blood Pressure [Sitting (for 1 minute prior to obtaining)] 123/67 H Blood Pressure [Standing (for 1 minute prior to obtaining)] 137/105 H Blood Pressure Mean 103 Blood Pressure Mean [Lying] 85 Blood Pressure Mean [Sitting (for 1 minute prior to obtaining)] 85 Blood Pressure Mean [Standing (for 1 minute prior to obtaining)] 115 Pulse Ox 98 Oxygen Delivery Method Room Air Oxygen Flow Rate (L/min) 07/31/25 09:45 07/31/25 10:08 07/31/25 11:00 Temperature Temperature Source Pulse Rate 110 H 104 H Pulse Rate [Lying] Pulse Rate [Sitting (for 1 minute prior to obtaining)] Pulse Rate [Standing (for 1 minute prior to obtaining)] Respiratory Rate 18 16 Respiratory Pattern Blood Pressure 130/86 H 149/58 H Blood Pressure [Lying] Blood Pressure [Sitting (for 1 minute prior to obtaining)] Blood Pressure [Standing (for 1 minute prior to obtaining)] Blood Pressure Mean 100 88 Blood Pressure Mean [Lying] Blood Pressure Mean [Sitting (for 1 minute prior to obtaining)] Blood Pressure Mean [Standing (for 1 minute prior to obtaining)] Pulse Ox 96 95 Oxygen Delivery Method Room Air Room Air Room Air Oxygen Flow Rate (L/min) 07/31/25 11:12 07/31/25 12:00 07/31/25 13:00 Temperature Temperature Source Pulse Rate 104 H 107 H Pulse Rate [Lying] Pulse Rate [Sitting (for 1 minute prior to obtaining)] Pulse Rate [Standing (for 1 minute prior to obtaining)] Respiratory Rate 18 Respiratory Pattern Blood Pressure 161/62 H Blood Pressure [Lying] Blood Pressure [Sitting (for 1 minute prior to obtaining)] Blood Pressure [Standing (for 1 minute prior to obtaining)] Blood Pressure Mean 95 Blood Pressure Mean [Lying] Blood Pressure Mean [Sitting (for 1 minute prior to obtaining)] Blood Pressure Mean [Standing (for 1 minute prior to obtaining)] Pulse Ox 98 99 98 Oxygen Delivery Method Nasal Cannula Nasal Cannula Oxygen Flow Rate (L/min) 2 2 07/31/25 13:14 07/31/25 14:00 07/31/25 15:00 Temperature Temperature Source Pulse Rate 110 H 112 H Pulse Rate [Lying] 106 H Pulse Rate [Sitting (for 1 minute prior to obtaining)] 115 H Pulse Rate [Standing (for 1 minute prior to obtaining)] Respiratory Rate 18 Respiratory Pattern Blood Pressure 125/51 H 133/96 H Blood Pressure [Lying] 132/57 H Blood Pressure [Sitting (for 1 minute prior to obtaining)] 133/62 H Blood Pressure [Standing (for 1 minute prior to obtaining)] Blood Pressure Mean 75 108 Blood Pressure Mean [Lying] 82 Blood Pressure Mean [Sitting (for 1 minute prior to obtaining)] 85 Blood Pressure Mean [Standing (for 1 minute prior to obtaining)] Pulse Ox 88 97 Oxygen Delivery Method Room Air Room Air Oxygen Flow Rate (L/min) Positive well nourished and well developed General Appearance ED: well developed and NAD HEENT Reports moist mucous membranes normocephalic and atraumatic Eyes PERRL and EOMs intact bilaterally Neck full ROM and supple Resp normal respiratory effort and clear to auscultation bilaterally Cardio regular rate, regular rhythm and no murmurs GI non-tender and non-distended Auscultation: normoactive bowel sounds Palpation: soft Back/Spine no CVA tenderness General Back: other FROM Extremity normal to inspection General Extremety ED: Negative for edema, pulses abnormal or tenderness General Extremity: Negative for edema or pulses abnormal Neuro oriented x3, CN's II-XII intact bilaterally and no sensory deficits noted Sensorium / Orientation: awake and alert Motor Exam: strength 5/5 throughout Skin no rashes or lesions noted and no wounds MDM MDM MDM Narrative Medical decision making narrative: This patient is presented saying that she was faint and had no other prodromal symptoms before passing out and collapsing on the floor. heard her and came to check on her and confirms that she appeared to be unconscious with eyes closed on the floor and unresponsive to him which is immediately when he called 911. This was followed by her mumbling and waking up gradually. Initially she told me she had no sensation of spinning or movement, but later admits that when it started she felt like she was moving. She states this has happened recurrently in the past and she has never been told definitively with the causes. She also states has been having chest discomfort for the last couple days that is pleuritic. She is anticoagulated on Eliquis and she has been taking it. However given the fact she is tachycardic here at rest, even though she has positive orthostatics, making her heart rate even faster, I feel this is a high risk scenario for PE and thought it best to obtain CT angiography of the chest to evaluate. She was negative for PE but shows bilateral pleural effusions large on the left small on the right, which may be related to her pleuritic chest discomfort. She has a history of a pericardial effusion that she knows of, were not seeing that on the scan now. Her EKG shows sinus tachycardia and is otherwise unremarkable. She had some nonspecifically elevated troponins, we measured these 3 times and they are flat arguing against acute coronary syndrome. Her potassium was little low at 3.1 she received some oral replacement. She has been very nauseated with all of this dizziness. When she is dizzy she is more nauseated suggesting maybe this is vertiginous. After the IV fluids we rechecked orthostatics they were still abnormal and she was very symptomatic. Therefore I reevaluated her which is when she started talking to me about the sensation of movement that she may be inadvertently but declined earlier. I did a Irma-Hallpike maneuver, to the right she has no symptoms into the left she is very symptomatic, has what appears to be a an abnormal jolt sign, and begins vomiting. This all suggests vertigo. Patient is fairly miserable with any type of movement especially getting out of bed. I am adding a CT of the head which we are obtaining now, as well as IV Ativan and Zofran and she and are requesting admission which I think is reasonable discussing with hospitalist. I reviewed her CT head, which interpretation shows nothing acute radiology in agreement. History & Record Review Additional record(s) reviewed:: Prior outpatient record (echo 1 month ago: stage 1 diastolic dysfxn, EF 65%, mild concentric LVH, trivial effusion) Lab Data Attestation: I reviewed the patient's lab results. Labs: Laboratory Results - last 24 hr 07/31/25 07/31/25 07/31/25 09:17 11:48 14:04 WBC 5.1 RBC 4.57 Hgb 12.4 Hct 40.4 MCV 88.4 MCH 27.1 MCHC 30.7 L RDW Std Deviation 62.0 H RDW Coeff of Lynn 19.0 H Plt Count 207 MPV 9.4 Immature Gran % (Auto) 1.400 H Neut % (Auto) 50.9 Lymph % (Auto) 34.5 [place] % (Auto) 12.2 H Eos % (Auto) 0.4 Baso % (Auto) 0.6 Absolute Neuts (auto) 2.6 Absolute Lymphs (auto) 1.75 Nucleated RBC % 0 Sodium 141 Potassium 3.1 L Chloride 102 Carbon Dioxide 24.0 Anion Gap 15 BUN 8 Creatinine 0.81 Estim Creat Clear Calc 61.46 Est GFR (MDRD) Non-Af 74 BUN/Creatinine Ratio 9.4 L Glucose 131 H Calcium 9.6 Phosphorus 2.4 L Magnesium 1.3 L Troponin T High Sens 28 H D Troponin T Hi Sens 2 Hr 30 H Troponin T Hi Sens 4Hr 28 H Radiography Diagnostic Testing: Clinical Impression(s) from Imaging Studies Chest CTA 07/31/25 09:44 IMPRESSION: No evidence of pulmonary embolism. Bilateral pleural effusions may represent pulmonary edema or CHF. Reading Location: [facility] Brain CT 07/31/25 15:15 IMPRESSION: 1. No intracranial hemorrhage. No mass effect or midline shift. 2. Chronic involutional and ischemic gliotic white matter changes. CT is insensitive for early evaluation of acute stroke. If there is clinical concern for acute ischemia, an MRI may be considered. Reading Location: [facility] Rhythm Strip Rhythm Strip: Sinus Tach Rate: 120 Ectopy: None EKG Initial EKG: Attestation: I personally reviewed and interpreted this EKG as follows: Interpretation: No Acute Injury Pattern and Sinus Tachycardia (Otherwise normal EKG) Comments: Normal axis. Normal intervals. Prior EKG tracings: available for review Prior: Unchanged Management Discussion w/another healthcare provider: Hospitalist Discharge Plan Dx/Rx/DC Orders Clinical Impression: Syncope and collapse, Pleuritic chest pain, Bilateral pleural effusion, Peripheral vertigo involving left ear, Orthostatic hypotension, Anticoagulated on apixaban, History of melanoma, Debility Disposition Disposition: Acute Care Hospital [facility] Discharge Date/Time: 07/31/25 16:29
[2025-07-31 09:53] LABS: Hematocrit 40.4 % (37-47); Hemoglobin 12.4 g/dL (12.0-15.0); Immature Granulocytes Count 0.070 X10^3/uL (0.0-0.0); Mean Corp Hgb Conc 30.7 g/dL (32-36); Mean Corpuscular Volume 88.4 fL (81-99); Mean Platelet Vol. 9.4 fl (6.2-12.0); NRBC Flagged by Analyzer 0 % (0-5); Platelet Count 207 K/mm3 (150-450); RBC Distribution Width CV 19.0 % (11.6-14.6); RBC Distribution Width SD 62.0 fl (35.1-43.9); Red Blood Count 4.57 M/mm3 (4.2-5.4); White Blood Count 5.1 K/mm3 (4.4-11.0)
[2025-07-31 10:24] LABS: Anion Gap 15 (5-15); BUN 8 mg/dL (4-19); BUN/Creat Ratio 9.4 RATIO (10-20); Calcium,Total 9.6 mg/dL (7.6-11.0); Carbon Dioxide 24.0 mmol/L (21.0-32.0); Chloride 102 mmol/L (98-108); Estimated Creatinine Clearance 61.46 ml/min (50-250); Glucose 131 mg/dL (70-99); Potassium 3.1 mmol/L (3.3-5.1); Troponin T High Sensitivity 28 ng/L (<=14)
[2025-07-31] MEDS: 0.9% Normal Saline (1000mL) 1,000 ML 999 ML IV (10:57)
[2025-07-31] MEDS: Potassium Chloride Oral Tablet 20 MEQ 40 MEQ PO (11:39)
[2025-07-31 12:12] LABS: Troponin T High Sens 2 HR 30 ng/L (<=14)
[2025-07-31 14:43] LABS: Troponin T High Sens 4 HR 28 ng/L (<=14)
--- NOTE | 2025-07-31 15:15 | CT_ITS ---
PROCEDURE: BRAIN/HEAD WITHOUT CONTRAST 07/31/2025 REASON FOR EXAM: VERTIGO, HEADACHE TECHNIQUE: Procedure Code: CTBR Modality: CT Procedure: BRAIN/HEAD WITHOUT CONTRAST Coronal and Sagittal reconstruction series were provided. One or more dose reduction techniques were used (e.g., Automated exposure control, adjustment of the mA and/or kV according to patient size, use of iterative reconstruction technique. COMPARISON: 06/28/2025 FINDINGS: There is no extra-axial or intra-axial intracranial hemorrhage. No mass effect or midline shift is seen. Generalized intracranial volume loss and findings compatible with chronic microvascular white matter ischemia. There is normal montiel-white matter differentiation. The posterior fossa is grossly unremarkable. The skull is unremarkable. Visualized paranasal sinuses are clear. The mastoid air cells show normal translucency. CT/Brain/Head without Contrast IMPRESSION: 1. No intracranial hemorrhage. No mass effect or midline shift. 2. Chronic involutional and ischemic gliotic white matter changes. CT is insensitive for early evaluation of acute stroke. If there is clinical co ncern for acute ischemia, an MRI may be considered. Reading Location[facility]
--- NOTE | 2025-07-31 15:28 | HP.PCM.HOS_ITS ---
HPI - General General Date of Admission: 07/31/25 Date of Service: 07/31/25 Chief Complaint: Syncopal episode HPI Narrative MISTI HUERTA, is a 79 F who presented to [facility] ED on 07/31/2025 after a syncopal episode at home. Patient lives at home with her . 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 She was recently hospitalized here at the beginning of June for syncope. She reported lightheadedness and dizziness when going from lying to standing so orthostatic vitals were unable to be obtained. It was suspected that her symptoms were secondary to adrenal insufficiency, and her prednisone was increased to 10 mg twice daily. She had good improvement in symptoms with increased prednisone dosing and was discharged on 07/01. She saw Dr. Malhotra in the office on 07/10 who switched her over to hydrocortisone 10 mg twice daily, and patient reports she had been doing well with this. However, she had a syncopal episode this morning and reported feeling faint and lightheaded shortly prior to that episode. In the ED, she was in sinus tachycardia to the low 110s, was otherwise normotensive to mildly hypertensive, afebrile and stable on room air at rest. Labs appeared mildly hemoconcentrated compared to prior labs and potassium was 3.1, but labs were otherwise benign. CT brain was unremarkable. CTA chest showed no PE, did show small bilateral pleural effusions that appear stable from previous. ED staff attempted to get her up to ambulate her but she had significant nausea with movement and episodes of vomiting. On further discussion, ED physician noted that her symptoms appeared consistent with vertigo. It was also noted that her dysphagia has worsened significantly over the past week or so and she has had poor p.o. intake. She has only been tolerating liquids for the past few days. Given these things, hospitalist was contacted for admission. I saw the patient at bedside in the ED, was present. Patient was fatigued appearing but otherwise laying back fairly comfortably in bed, conversing normally, in no acute distress. She reported only mild nausea currently at rest that did worsen significantly with movement. She reports feeling more weak and fatigued over the past several days due to her poor p.o. intake. Denies any history of vertigo that she is aware of. No recent upper respiratory illnesses. No other acute concerns currently. Will be admitted for further management. [facility] Medical History Hypertension Adrenal insufficiency Syncope Septic shock Colitis Afib Type 2 [place] (myocardial infarction) Neurologic disorder Cancer, metastatic Cerebral vascular disease Elevated troponin History of Holter monitoring Hx of malignant carcinoid tumor Weakness Chronic pain Obesity (BMI 30.0-34.9) History of syncope Generalized abdominal pain Wears glasses Arthritis Neuropathy History of pain when walking History of echocardiogram Cardiology follow-up encounter History of atrial fibrillation Syncopal episodes Metastatic melanoma Duodenal mass Post-menopausal History of steroid therapy Anemia History of immunosuppression therapy Seizures 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 Bilateral pulmonary embolism Pulmonary emboli Left leg DVT Anticoagulated Former smoker Mild cognitive impairment COVID-19 Polyneuropathy Essential hypertension GERD (gastroesophageal reflux disease) Hyperlipidemia Home Medications ?Medication ?Instructions ?Recorded ?Last Taken ?Type atorvastatin 40 mg tablet 40 mg PO DAILY cholesterol 0 09/24/20 07/30/25 History apixaban 5 mg tablet (Eliquis) 5 mg PO BID blood thinn er 30 days 07/27/23 07/30/25 Rx #60 tabs pantoprazole 40 mg tablet,delayed 40 mg PO DAILY reflu x #30 tabs 08/29/23 07/30/25 Rx release melatonin 3 mg tablet 3 mg PO HS PRN sleep 4 02/23/25 History ondansetron HCl 8 mg tablet 8 mg PO Q8H PRN nausea and vomiting 11/02/23 Unknown History tizanidine 4 mg capsule 4 mg PO Q8H PRN muscle spast icity 03/27/24 Unknown History diphenoxylate-atropine 2.5 1 tab PO QHS PRN diarrhea 0 01/28/25 Unknown History mg-0.025 mg tablet (Lomotil) amlodipine 5 mg tablet 5 mg PO DAILY hypertension 0 03/27/25 07/30/25 History cholecalciferol (vitamin D3) 50 50 mcg PO QDAY vitamin 03/27/25 07/30/25 History mcg (2,000 unit) capsule acetaminophen 500 mg tablet 1,000 mg PO Q8H PRN Pain S core 1-5 06/25/25 07/30/25 History metoprolol succinate 50 mg 50 mg PO DAILY heart rate 3 0 days 07/01/25 07/30/25 Rx tablet,extended release 24 hr #30 tabs duloxetine 20 mg capsule,delayed 20 mg PO QDAY 5 07/30/25 History release lisinopril 40 mg tablet 40 mg PO DAILY hypertension 07/10/25 07/30/25 History dicyclomine 10 mg capsule 10 mg PO BID PRN abdominal p ain 07/20/25 Unknown History hydrocortisone 10 mg tablet 10 mg PO BID 07/20/2512/19 History phenazopyridine 100 mg tablet 100 mg PO TID PRN pain 1 09/19/24 Unknown History psyllium 1 tbsp PO QDAY 07/20/2512/19 History See Rx Instructions .Route . COMPLEX 07/31/25 07/30/25 History Allergy/AdvReac Type Severity Reaction Status Date / Time Sulfa (Sulfonamide Allergy Severe Swelling Verified 07/31/25 09:12 Antibiotics) amoxicillin AdvReac Severe Diarrhea Verified 07/31/25 09:12 sulfamethoxazole (From AdvReac Severe Anaphylaxis Verified 07/31/25 09:12 Bactrim) trimethoprim (From Bactrim) AdvReac Severe Swelling Verified 07/31/25 09:12 Family History Brother Alcoholism Asthma Myocardial infarction, Onset Age: 52 Seizures Skin cancer Sister CVA (cerebral vascular accident) Asthma Grandfather Asthma Father Myocardial infarction, Onset Age: 46 Had at age 46 & 62 Mother Myocardial infarction, Onset Age: 82 Surgical History History of tubal ligation Hx of tonsillectomy Hx of surgical procedure History of total left hip replacement History of amputation of finger History of right hip replacement History of cataract surgery History of eye surgery Social History household members: spouse Smoking Status: Former smoker Tobacco: How many years used: 30 how long ago did patient quit smokin years ago second hand exposure: No alcohol intake: current alcohol intake frequency: holidays/special occasions only Alcohol type: wine substance use type: does not use amy/caodaism: None seatbelt use: always ROS Constitutional Constitutional: Reports fatigue and weakness; Denies chills or fever(s) Eyes Eyes: Denies change in vision ENT HEENT: Reports dysphagia Cardiovascular Cardiovascular: Denies chest pain Respiratory/Chest Respiratory/Chest: Denies cough or shortness of breath at rest Gastrointestinal Gastrointestinal: Reports nausea and vomiting; Denies abdominal pain, constipation or diarrhea Genitourinary Genitourinary: Denies dysuria Musculoskeletal Musculoskeletal: Denies arthralgias or myalgias Neurologic Neurologic: Reports disequilibrium and dizziness; Denies focal weakness, headache(s), numbness or tingling Vital Signs Vital Signs Vital Signs: 07/31/25 09:08 07/31/25 09:20 07/31/25 09:44 Temperature 98.4 F Temperature Source Oral Pulse Rate 19 L Pulse Rate [Lying] 106 H Pulse Rate [Sitting (for 1 minute prior to obtaining)] 116 H Pulse Rate [Standing (for 1 minute prior to obtaining)] 125 H Respiratory Rate 18 Respiratory Pattern Normal Blood Pressure 155/78 H Blood Pressure [Lying] 133/61 H Blood Pressure [Sitting (for 1 minute prior to obtaining)] 123/67 H Blood Pressure [Standing (for 1 minute prior to obtaining)] 137/105 H Blood Pressure Mean 103 Blood Pressure Mean [Lying] 85 Blood Pressure Mean [Sitting (for 1 minute prior to obtaining)] 85 Blood Pressure Mean [Standing (for 1 minute prior to obtaining)] 115 Pulse Ox 98 Oxygen Delivery Method Room Air Oxygen Flow Rate (L/min) 07/31/25 09:45 07/31/25 10:08 07/31/25 11:00 Temperature Temperature Source Pulse Rate 110 H 104 H Pulse Rate [Lying] Pulse Rate [Sitting (for 1 minute prior to obtaining)] Pulse Rate [Standing (for 1 minute prior to obtaining)] Respiratory Rate 18 16 Respiratory Pattern Blood Pressure 130/86 H 149/58 H Blood Pressure [Lying] Blood Pressure [Sitting (for 1 minute prior to obtaining)] Blood Pressure [Standing (for 1 minute prior to obtaining)] Blood Pressure Mean 100 88 Blood Pressure Mean [Lying] Blood Pressure Mean [Sitting (for 1 minute prior to obtaining)] Blood Pressure Mean [Standing (for 1 minute prior to obtaining)] Pulse Ox 96 95 Oxygen Delivery Method Room Air Room Air Room Air Oxygen Flow Rate (L/min) 07/31/25 11:12 07/31/25 12:00 12/05/25 13:00 Temperature Temperature Source Pulse Rate 104 H 107 H Pulse Rate [Lying] Pulse Rate [Sitting (for 1 minute prior to obtaining)] Pulse Rate [Standing (for 1 minute prior to obtaining)] Respiratory Rate 18 Respiratory Pattern Blood Pressure 161/62 H Blood Pressure [Lying] Blood Pressure [Sitting (for 1 minute prior to obtaining)] Blood Pressure [Standing (for 1 minute prior to obtaining)] Blood Pressure Mean 95 Blood Pressure Mean [Lying] Blood Pressure Mean [Sitting (for 1 minute prior to obtaining)] Blood Pressure Mean [Standing (for 1 minute prior to obtaining)] Pulse Ox 98 99 98 Oxygen Delivery Method Nasal Cannula Nasal Cannula Oxygen Flow Rate (L/min) 2 2 07/31/25 13:14 07/31/25 14:00 07/31/25 15:00 Temperature Temperature Source Pulse Rate 110 H 112 H Pulse Rate [Lying] 106 H Pulse Rate [Sitting (for 1 minute prior to obtaining)] 115 H Pulse Rate [Standing (for 1 minute prior to obtaining)] Respiratory Rate 18 Respiratory Pattern Blood Pressure 125/51 H 133/96 H Blood Pressure [Lying] 132/57 H Blood Pressure [Sitting (for 1 minute prior to obtaining)] 133/62 H Blood Pressure [Standing (for 1 minute prior to obtaining)] Blood Pressure Mean 75 108 Blood Pressure Mean [Lying] 82 Blood Pressure Mean [Sitting (for 1 minute prior to obtaining)] 85 Blood Pressure Mean [Standing (for 1 minute prior to obtaining)] Pulse Ox 88 97 Oxygen Delivery Method Room Air Room Air Oxygen Flow Rate (L/min) Weight Weight: 78.4 kg Body Mass Index (BMI) 27.8 Physical Exam Const alert, oriented x3, no apparent distress and average body habitus Constitutional Narrative: Elderly female, fatigued and fairly weak appearing, otherwise laying back comfortably in bed, answering questions appropriately, in no acute distress. General Appearance: cooperative and comfortable HEENT normocephalic, head/scalp atraumatic, hearing grossly normal bilaterally, nasal mucous membranes and turbinates normal and moist oral mucous membranes Eyes PERRL, EOMs intact bilaterally and conjunctivae normal Neck full ROM Chest inspection of chest normal Resp normal respiratory effort and no use of accessory muscles Resp Narrative: Breathing comfortably on 2 L nasal cannula at rest with oxygen saturations in the mid to high 90s. Mildly diminished breath sounds in bilateral lung bases, otherwise good air movement throughout with no wheezing or crackles noted. Cardio no murmurs and peripheral pulses 2+ throughout Cardio Narrative: Tachycardic, regular rhythm. GI normal to inspection, nondistended, normoactive bowel sounds, soft to palpation, non-tender and non-distended Back/Spine normal ROM Extremity normal to inspection, full ROM and no pedal edema Skin no rashes or lesions noted Neuro moves all extremities and no focal motor deficits Speech: speech normal Psych mental status grossly normal Results Lab / Micro Data 07/31/25 09:17 07/31/25 09:17 Labs: Laboratory Results - last 24 hr 07/31/25 09:17: WBC 5.1, RBC 4.57, Hgb 12.4, Hct 40.4, MCV 88.4, MCH 27.1, MCHC 30.7 L, RDW Std Deviation 62.0 H, RDW Coeff of Lynn 19.0 H, Plt Count 207, MPV 9.4, Immature Gran % (Auto) 1.400 H, Neut % (Auto) 50.9, Lymph % (Auto) 34.5, M dany % (Auto) 12.2 H, Eos % (Auto) 0.4, Baso % (Auto) 0.6, Absolute Neuts (auto) 2.6, Absolute Lymphs (auto) 1.75, Nucleated RBC % 0, Sodium 141, Potassium 3.1 L , Chloride 102, Carbon Dioxide 24.0, Anion Gap 15, BUN 8, Creatinine 0.81, Estim Creat Clear Calc 61.46, Est GFR (MDRD) Non-Af 74, BUN/Creatinine Ratio 9.4 L, G lucose 131 H, Calcium 9.6, Troponin T High Sens 28 H D 07/31/25 11:48: Troponin T Hi Sens 2 Hr 30 H 07/31/25 14:04: Troponin T Hi Sens 4Hr 28 H Rhythm Strip Rhythm Strip: Sinus Tach Rate: 120 Ectopy: None Imaging Radiology Impression Chest CTA 07/31/25 09:44 IMPRESSION: No evidence of pulmonary embolism. Bilateral pleural effusions may represent pulmonary edema or CHF. Reading Location: [facility] Assessment & Plan Assessment/Plan (1) Syncope and collapse: (2) Debility: PLAN: Plan Patient is a 79-year-old female who presented to [facility] ED on 07/31/2025 after a syncopal episode at home. 1. Syncope, concern for vertigo and difficulty with ambulation, acute on chronic debility ? Admit under inpatient status to PCU. PT/OT/case management consulted. Suspect syncopal episode was multifactorial in setting of some lightheadedness/dizziness from recent poor p.o. intake, generally worsening functional status in setting of melanoma with several complications as below, and possibly new vertigo. CT brain unremarkable. CTA chest with no PE, stable small bilateral pleural effusions. Patient with significant dizziness and nausea with vomiting with movement in the ED concerning for vertigo. Unclear etiology, no recent URI symptoms and lower concern for CVA with patient on blood thinner as below. Will treat with IV Ativan 0.5 mg every 6 hours as needed for now. Appreciate therapy recommendations. 2. Recurrent dysphagia, history of achalasia s/p esophageal dilation, history of GERD ? GI and speech therapy consulted. Patient had EGD in January [address] Antonio and was found to have abnormal esophageal motility with concern for achalasia; had esophageal dilation done at that time. She saw GI in the office in mid June and noted some dysphagia then but she wished to hold off on repeat dilation. However, she has had significant worsening dysphagia over the past week or so and has essentially only been tolerating liquids. Suspect she will need repeat dilation done during hospitalization. Okay for full liquid diet for now and will keep n.p.o. at midnight for possible dilation tomorrow. Continue home PPI. 3. Hypokalemia ? Potassium 3.1 on admit. Suspect secondary to GI losses from nausea/vomiting. Mag and Phos ordered. Replete potassium as needed. 4. Elevated troponins ? Troponin trend 28 > 30 > 28. No chest pain noted and EKG with no ischemic changes. Presumed demand ischemia in setting of mild dehydration from poor p.o. intake and GI losses as above. No further cardiac workup needed. 5. Adrenal insufficiency ? Follows with Dr. Malhotra. Had recent hospitalization at the beginning of June for syncope and it was suspected this was in part due to insufficient steroid dosing for adrenal insufficiency. Was increased to prednisone 10 mg twice daily and then Dr. Malhotra transitioned patient to hydrocortisone 10 mg twice daily, and patient was doing well on this until day of this admission. Suspect her symptoms above are not secondary to adrenal insufficiency. Continue home hydrocortisone. 6. 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 Follows with Dr. Palma. Recent office note from May reviewed in [facility]. Initially had subungual malignant melanoma of left index finger. She then had in-transit regional axillary lymph node recurrence while on adjuvant Keytruda s/p wide local excision with sentinel node biopsy. Was treated with one dose of dual immune checkpoint inhibitor therapy and had severe biopsy-proven colitis due to this. She then had an isolated limb infusion done and resumed Keytruda, but she had recurrent diarrhea on Keytruda. Keytruda was discontinued and she is currently on expectant management with supportive care. 7. Paroxysmal A-fib on Eliquis, hypertension, hyperlipidemia, history of CVA, history of VTE s/p IVC filter placement ? Follows with [facility], last office visit at the end of June. In sinus tachycardia on admit presumably due to dehydration from poor p.o. intake as above. Mildly hypertensive on admit and orthostatic vitals were negative. Okay to continue home Eliquis, amlodipine and metoprolol. Will hold home lisinopril for now, restart as needed. 8. Chronic pericardial effusion, recent history of cardiac tamponade s/p pericardial drain placement ? Patient developed cardiac tamponade requiring pericardial drain placement in May at [facility]. Repeat echo on 06/29 here with only trivial pericardial effusion noted. CTA chest on this admission with no significant cardiac findings noted. DVT prophylaxis: Not indicated, on Eliquis CODE STATUS: DNR CCA, okay to intubate Expected disposition: TBD Total clinical time spent by myself addressing the patient's medical issues, reviewing all the data, and collaborating with patient's care team: 83 minutes. Charges/Coding Visit Charges Inpatient E&M: 48235 Init Hosp L3
--- NOTE | 2025-07-31 16:00 | CASEMGMT ---
Care Management Face to Face with patient for initial transition planning/care coordination assessment in the ED. This database report writer introduced self and role at [facility]. Patient alert and oriented. Patient willing to participate in assessment and is able to answer all questions appropriately. Patient's , Timbo, at bedside. Care providers, pharmacy, and demographics verified. 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 Opal, neurology. Masci, oncology. Lenora, oncology surgeon. Brenna, vascular. eriberto Malhotra. Danyell, cardiology. Preferred Pharmacy: [facility] Insurance: Medicare A B (primary). (secondary). Prescription Benefit: yes Living Will/HPOA: Timbo (primary). Son Shorty (secondary). Son Santhosh (tertiary). LNOK: and sons. Living Arrangements: lives with in a 2 story home with first floor living. Bedroom, bathroom, and laundry all on first floor. Patient is able to toilet self, though patient's has to help with bathing and dressing. Transportation: patient's drives DME: shower chair, raised toilet, cane, grab bars, walker, rollator HHC: [facility] in past. SNF/Rehab: [facility] and [facility] in past. Community Resources: outpatient therapy at [facility] Patient goals: Patient wishes to discharge home, but understands likely needing additional help at first. Patient denies any further needs or concerns at this time. Disposition Plan: admission to acute; RN CM/SW to follow for discharge planning needs that may arise. Raysa Maciel, FUNCTIONAL MENTAL DISABILITY TEACHER, STEAM ENGINEER
[2025-07-31 16:53] LABS: Magnesium 1.3 mg/dL (1.5-2.2)
--- NOTE | 2025-07-31 17:52 | CON.PCM.GI_ITS ---
HPI Consult Data Date of Consult: 07/31/25 HPI Narrative Reason for Consultation: Dysphagia HPI Narrative: The patient is a 79-year-old female with a complex history of melanoma (s/p isolated limb infusion to left arm ~3 years ago), prior pericardial effusion requiring drainage, steroid dependence (adrenal insufficiency), prior DVT/PE on Eliquis, and esophageal motility disorder (EGJ outflow obstruction vs. achalasia). She presents following a sudden fainting episode this morning while at the sink. She regained consciousness shortly thereafter. She reports recurrent, non-exertional lightheadedness episodes occurring at least weekly, with intermittent syncope, which have been evaluated previously by multiple physicians without a definitive cause identified. Denies chest pain, palpitations, shortness of breath, or severe headache immediately preceding the syncopal event. Over the past 4-5 days, she notes increased weakness, fatigue, more daytime sleep, and poor appetite. Yesterday and the day before, she experienced new onset epigastric burning/heartburn, gagging, nausea, and dysphagia (food bubbling up, difficulty swallowing pizza), partially relieved with Tums. I consulted for endoscopic treatment of her esophageal dysphagia secondary to motility disorder. [facility] Medical History Hypertension Adrenal insufficiency Syncope Septic shock Colitis Afib Type 2 UT (myocardial infarction) Neurologic disorder Cancer, metastatic Cerebral vascular disease Elevated troponin History of Holter monitoring Hx of malignant carcinoid tumor Weakness Chronic pain Obesity (BMI 30.0-34.9) History of syncope Generalized abdominal pain Wears glasses Arthritis Neuropathy History of pain when walking History of echocardiogram Cardiology follow-up encounter History of atrial fibrillation Syncopal episodes Metastatic melanoma Duodenal mass Post-menopausal History of steroid therapy Anemia History of immunosuppression therapy Seizures 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 Bilateral pulmonary embolism Pulmonary emboli Left leg DVT Anticoagulated Former smoker Mild cognitive impairment COVID-19 Polyneuropathy Essential hypertension GERD (gastroesophageal reflux disease) Hyperlipidemia Home Medications ?Medication ?Instructions ?Recorded ?Last Taken ?Type atorvastatin 40 mg tablet 40 mg PO DAILY cholesterol 0 09/24/20 07/30/25 History apixaban 5 mg tablet (Eliquis) 5 mg PO BID blood thinn er 30 days 07/27/23 07/30/25 Rx #60 tabs pantoprazole 40 mg tablet,delayed 40 mg PO DAILY reflu x #30 tabs 08/29/23 07/30/25 Rx release melatonin 3 mg tablet 3 mg PO HS PRN sleep 4 02/23/25 History ondansetron HCl 8 mg tablet 8 mg PO Q8H PRN nausea and vomiting 11/02/23 Unknown History tizanidine 4 mg capsule 4 mg PO Q8H PRN muscle spast icity 03/27/24 Unknown History diphenoxylate-atropine 2.5 1 tab PO QHS PRN diarrhea 0 01/28/25 Unknown History mg-0.025 mg tablet (Lomotil) amlodipine 5 mg tablet 5 mg PO DAILY hypertension 0 03/27/25 07/30/25 History cholecalciferol (vitamin D3) 50 50 mcg PO QDAY vitamin 03/27/25 07/30/25 History mcg (2,000 unit) capsule acetaminophen 500 mg tablet 1,000 mg PO Q8H PRN Pain S core 1-5 06/25/25 07/30/25 History metoprolol succinate 50 mg 50 mg PO DAILY heart rate 3 0 days 07/01/25 07/30/25 Rx tablet,extended release 24 hr #30 tabs duloxetine 20 mg capsule,delayed 20 mg PO QDAY 5 07/30/25 History release lisinopril 40 mg tablet 40 mg PO DAILY hypertension 07/10/25 07/30/25 History dicyclomine 10 mg capsule 10 mg PO BID PRN abdominal p ain 07/20/25 Unknown History hydrocortisone 10 mg tablet 10 mg PO BID 07/20/2512/19 History phenazopyridine 100 mg tablet 100 mg PO TID PRN pain 1 09/19/24 Unknown History psyllium 1 tbsp PO QDAY 07/20/2512/19 History [id number] See Rx Instructions .Route . COMPLEX 07/31/25 07/30/25 History Allergy/AdvReac Type Severity Reaction Status Date / Time Sulfa (Sulfonamide Allergy Severe Swelling Verified 07/31/25 09:12 Antibiotics) amoxicillin AdvReac Severe Diarrhea Verified 07/31/25 09:12 sulfamethoxazole (From AdvReac Severe Anaphylaxis Verified 07/31/25 09:12 Bactrim) trimethoprim (From Bactrim) AdvReac Severe Swelling Verified 07/31/25 09:12 Family History Brother Alcoholism Asthma Myocardial infarction, Onset Age: 52 Seizures Skin cancer Sister CVA (cerebral vascular accident) Asthma Grandfather Asthma Father Myocardial infarction, Onset Age: 46 Had at age 46 & 62 Mother Myocardial infarction, Onset Age: 82 Surgical History History of tubal ligation Hx of tonsillectomy Hx of surgical procedure History of total left hip replacement History of amputation of finger History of right hip replacement History of cataract surgery History of eye surgery Social History household members: spouse Smoking Status: Former smoker Tobacco: How many years used: 30 how long ago did patient quit smokin years ago second hand exposure: No alcohol intake: current alcohol intake frequency: holidays/special occasions only Alcohol type: wine substance use type: does not use amy/samaritan: None seatbelt use: always ROS Constitutional Constitutional: Denies fatigue, fever(s), poor appetite, weight gain or weight loss Gastrointestinal Gastrointestinal: Denies belching, bloating, change in bowel habits, change in stool character, chewing difficulty, coffee ground emesis, constipation, cramping, diarrhea, dyspepsia, dysphagia, early satiety, excessive flatus, fecal incontinence, heartburn, hematemesis, hematochezia, hemorrhoids, loose stools, melena, nausea, odynophagia, rectal bleeding, tenesmus, vomiting or weight changes Physical Exam Const alert, oriented x3, no apparent distress and healthy appearing General Appearance: cooperative GI normal to inspection, nondistended, normoactive bowel sounds, soft to palpation, non-tender and non-distended Percussion: normal to percussion Rectal Exam: deferred Lab / Micro Data 07/31/25 09:17 07/31/25 09:17 Labs: Laboratory Results - last 24 hr 07/31/25 09:17: WBC 5.1, RBC 4.57, Hgb 12.4, Hct 40.4, MCV 88.4, MCH 27.1, MCHC 30.7 L, RDW Std Deviation 62.0 H, RDW Coeff of Lynn 19.0 H, Plt Count 207, MPV 9.4, Immature Gran % (Auto) 1.400 H, Neut % (Auto) 50.9, Lymph % (Auto) 34.5, M dany % (Auto) 12.2 H, Eos % (Auto) 0.4, Baso % (Auto) 0.6, Absolute Neuts (auto) 2.6, Absolute Lymphs (auto) 1.75, Nucleated RBC % 0, Sodium 141, Potassium 3.1 L , Chloride 102, Carbon Dioxide 24.0, Anion Gap 15, BUN 8, Creatinine 0.81, Estim Creat Clear Calc 61.46, Est GFR (MDRD) Non-Af 74, BUN/Creatinine Ratio 9.4 L, G lucose 131 H, Calcium 9.6, Troponin T High Sens 28 H D 07/31/25 11:48: Troponin T Hi Sens 2 Hr 30 H 07/31/25 14:04: Phosphorus 2.4 L, Magnesium 1.3 L, Troponin T Hi Sens 4Hr 28 H Rhythm Strip Rhythm Strip: Sinus Tach Rate: 120 Ectopy: None Imaging Radiology Impression Chest CTA 07/31/25 09:44 IMPRESSION: No evidence of pulmonary embolism. Bilateral pleural effusions may represent pulmonary edema or CHF. Reading Location: [facility] Brain CT 07/31/25 15:15 IMPRESSION: 1. No intracranial hemorrhage. No mass effect or midline shift. 2. Chronic involutional and ischemic gliotic white matter changes. CT is insensitive for early evaluation of acute stroke. If there is clinical concern for acute ischemia, an MRI may be considered. Reading [facility] Assessment & Plan Assessment/Plan (1) Anticoagulated on apixaban: (2) Dysphagia: PLAN: Assessment The patient is a 79-year-old female presenting with acute syncope in the context of increasing non-specific symptoms (fatigue, weakness, poor appetite) over the past several days, new onset gastrointestinal symptoms (heartburn, nausea, dysphagia), and multiple serious comorbidities including steroid dependence and anticoagulation. The differential diagnosis for syncope is broad in this complex patient: * Volume Depletion/Orthostatic Hypotension:?Likely given increased fatigue/poor intake, potentially exacerbated by GI symptoms/vomiting if present. Requires orthostatic vital sign assessment. * Cardiac Arrhythmia:?History of prior pericardial effusion raises concern for underlying structural heart issues or potential for recurrent effusion/tamponade, although patient denies typical cardiac symptoms. EKG is critical. * Adrenal Crisis:?As a steroid-dependent patient with recent increased non- specific weakness/fatigue and poor appetite, an adrenal crisis must be ruled out as it is life-threatening. * Gastrointestinal Bleeding:?Patient is on Eliquis, increasing risk of GI bleed, which can cause syncope due to volume loss. GI symptoms could be related to severe esophagitis or ulceration. * Neurological/Other Causes:?Less likely given lack of focal neurological deficit or severe headache, but requires evaluation. The esophageal dysphagia appears to be a chronic issue managed by GI, but new onset severe heartburn/gagging may indicate acute exacerbation of reflux/esophagitis. Plan * Diagnostics: * Labs: CBC with differential, CMP (creatinine, electrolytes, BUN), Troponin I series, INR/PTT/Type & Screen (given Eliquis), CRP/ESR, Cortisol level (consider ACTH stim test if stable, or empiric stress-dose steroids if high suspicion for adrenal crisis). * Imaging: Consider Chest X-ray (CXR) to evaluate heart size/pulmonary status, Head CT i was normal. * Patient will need an upper endoscopy for treatment of esophageal dysphagia. * Medications: * Hold Eliquis temporarily pending workup for potential GI bleed or need for urgent procedures. * Administer empiric stress-dose hydrocortisone if suspicion for adrenal insufficiency is high (consult Endocrinology). * Continue Tums for symptomatic relief of heartburn; consider IV PPI if concerned about esophagitis/ulceration. Portions of this note were generated using voice recognition software ([employer] Dictation). I have reviewed the contents and every effort has been made to ensure accuracy; however, inadvertent errors in grammar, spelling, punctuation, or word choice may occur, that were not noted before signing the document and should not alter the intended clinical meaning. Charges/Coding Visit Charges Inpatient E&M: 39050 Init Hosp L3
[2025-07-31] MEDS: 0.9% Normal Saline (250mL Bag) 250 ML 15 ML IV (17:53)
[2025-07-31] MEDS: 0.9% Saline Lock 10 ML Syringe IV ×2 (17:53→21:56)
[2025-07-31] MEDS: Magnesium Sulfate 4gm/100mL 4 GM/100 ML IV.SOLN. IV (17:53)
[2025-07-31] MEDS: Na Biphos/Potassium Phosphate PACKET 1 PACKET PO ×2 (17:53→20:52)
[2025-07-31] MEDS: Metoprolol(XL)Succ 50 MG Tablet PO (17:54)
[2025-07-31] MEDS: APIXABAN 5 MG TABLET PO (20:51)
--- NOTE | 2025-07-31 22:57 | PCM.HOSP.N ---
Hospitalist Note Spouse reports that patient has been off of gabapentin for some time now, order discontinued.
[2025-08-01] VITALS (12 sets, daily range): BP systolic 114–147; BP diastolic 49–62; PULSE 92–116; RESP 16–20; TEMP 36.8–37.9; O2SAT 85–99
[2025-08-01] MEDS: Senna Tablet 2 TABLET PO ×2 (00:42→20:18)
[2025-08-01 05:09] LABS: Hematocrit 33.4 % (37-47); Hemoglobin 10.4 g/dL (12.0-15.0); Mean Corp Hgb Conc 31.1 g/dL (32-36); Mean Corpuscular Volume 87.7 fL (81-99); Mean Platelet Vol. 9.8 fl (6.2-12.0); Platelet Count 180 K/mm3 (150-450); RBC Distribution Width CV 19.2 % (11.6-14.6); RBC Distribution Width SD 61.8 fl (35.1-43.9); Red Blood Count 3.81 M/mm3 (4.2-5.4); White Blood Count 5.2 K/mm3 (4.4-11.0)
[2025-08-01 05:57] LABS: Anion Gap 12 (5-15); BUN 9 mg/dL (4-19); BUN/Creat Ratio 10.6 RATIO (10-20); Calcium,Total 8.5 mg/dL (7.6-11.0); Carbon Dioxide 23.2 mmol/L (21.0-32.0); Chloride 103 mmol/L (98-108); Estimated Creatinine Clearance 60.85 ml/min (50-250); Glucose 152 mg/dL (70-99); Magnesium 2.5 mg/dL (1.5-2.2); Potassium 3.8 mmol/L (3.3-5.1)
[2025-08-01] MEDS: 0.9% Normal Saline (1000mL) 1,000 ML 125 ML IV ×2 (09:19→18:12)
[2025-08-01] MEDS: 0.9% Saline Lock 10 ML Syringe IV (09:20)
--- NOTE | 2025-08-01 13:19 | PN_ITS ---
Subjective Subjective Patient seen and examined with her nurse. She had no active complaints. She was admitted with a complaint of lightheadedness and syncope. She denies any nausea or vomiting. She has had decreased intake as she has an esophageal stricture and has had difficulty swallowing. She denies any nausea or vomiting. Review of systems otherwise negative. She is on 2 L of oxygen. Objective Data Objective Data Vital Signs: Vital Signs Temp Pulse Resp BP Pulse Ox O2 Del Method O2 Flow Rate 98.4 F 104 H 20 H 138/60 H 92 Nasal Cannula 2 08/01/25 09:22 08/01/25 09:22 08/01/25 09:22 08/01/25 09:22 08/01/25 09:22 08/01/25 09:35 08/01/25 09:35 Oxygen Flow Rate (L/min) 2 Oxygen Delivery Method Nasal Cannula Weight: 175 lb 0.752 oz Body Mass Index (BMI) 27.3 Intake & Output: Intake and Output for Last 24 Hours 07/30/25 07/31/25 08/01/25 23:59 23:59 23:59 Intake Total 1220 / 1220 Balance 1220 / 1220 Lab / Micro Data 08/01/25 04:50 08/01/25 04:50 Labs: Laboratory Results - last 24 hr 07/31/25 14:04: Phosphorus 2.4 L, Magnesium 1.3 L, Troponin T Hi Sens 4Hr 28 H 08/01/25 04:50: WBC 5.2, RBC 3.81 L, Hgb 10.4 L, Hct 33.4 L, MCV 87.7, MCH 27.3, MCHC 31.1 L, RDW Std Deviation 61.8 H, RDW Coeff of Lynn 19.2 H, Plt Count 180, MPV 9.8, Sodium 138, Potassium 3.8, Chloride 103, Carbon Dioxide 23.2, Anion Gap 12, BUN 9, Creatinine 0.84, Estim Creat Clear Calc 60.85, Est GFR (MDRD) Non-Af 72, BUN/Creatinine Ratio 10.6, Glucose 152 H, Calcium 8.5, Phosphorus 3.7, M agnesium 2.5 H Radiography Diagnostic Testing: Radiology Impression Brain CT 07/31/25 15:15 IMPRESSION: 1. No intracranial hemorrhage. No mass effect or midline shift. 2. Chronic involutional and ischemic gliotic white matter changes. CT is insensitive for early evaluation of acute stroke. If there is clinical concern for acute ischemia, an MRI may be considered. Reading Location: [facility] Rhythm Strip Rhythm Strip: Sinus Tach Rate: 120 Ectopy: None Physical Exam Const alert, oriented x3 and no apparent distress General Appearance: cooperative HEENT normocephalic, head/scalp atraumatic, moist oral mucous membranes and oropharynx normal Eyes EOMs intact bilaterally Neck supple and no JVD Lymph Lymphatic: no lymphedema noted Resp normal respiratory effort, normal air movement and clear to auscultation bilaterally Cardio regular rate, regular rhythm, S1 normal heart sound, S2 normal heart sound and no murmurs GI normal to inspection, nondistended, normoactive bowel sounds, soft to palpation, non-tender and non-distended Extremity normal capillary refill, no clubbing, cyanosis or edema and no calf tenderness General Extremity: no tenderness to palpation of joints or extremities Skin General Skin Exam: no breakdown Neuro CN's II-XII intact bilaterally and no focal motor deficits Motor Exam: general weakness Psych thought process normal, cooperative and affect normal Appearance: appropriate Assessment & Plan Assessment/Plan (1) Syncope and collapse: PLAN: Plan #Syncope * Likely due to dehydration and decreased intake. She has a history of adrenal insufficiency and was recently admitted in June 2025 for syncope. Her prednisone dose was increased. She has been following up with endocrinology and she was switched to hydrocortisone. On the day of admission she also had syncope. * CT brain negative and CT of the chest showed no evidence of PE. There was also concern for vertigo and patient said that she had a history of dysphagia which had worsened significantly over the past week and she had not been eating or drinking well. * Patient currently feeling much better. Gastroenterology consulted for evaluation on account of her dysphagia. * hydrate with IVF NS @ 125cc/hr * PT/OT on board * fall precautions * #History of dysphagia in the setting of ahcalasia with esophageal dilatation * GI consulted. Await recs. * had EGD by GI in January 2025 which showed abnormal esophageal motility with concern for achalasia. Had esophageal dilatation done then. * dysphagia has [id number] and she is now barely even tolerating liquids * GI on board. On IV PPI * #Hypokalemia: resolved # History of adrenal insufficiency: * Follows with endocrinology. Her prednisone was switched to p.o. hydrocortisone by endocrinology. Will continue this. #Urinary history of melanoma * Had a subungual melanoma of her left index finger status post excision. She also had subsequent regional axillary lymph node recurrence. Was on chemotherapy and had subsequent severe colitis. Keytruda therapy discontinued * Follow with oncology outpatient basis * #History of paroxysmal A-fib: on eliquis. #History of chronic pericardial effusion: S/p recent cardiac tamponade s/p pericardial drain placement. Stable. DVT prophylaxis: Not indicated as patient on Eliquis Charges/Coding Visit Charges Inpatient E&M: 01291 Subs Hosp L2
--- NOTE | 2025-08-01 14:55 | NURSING ---
This RN took over care at this time
[2025-08-01] MEDS: Metoprolol(XL)Succ 50 MG Tablet PO (15:55)
[2025-08-01] MEDS: MELATONIN 3 MG TABLET PO (20:18)
[2025-08-02] VITALS (11 sets, daily range): BP systolic 92–106; BP diastolic 52–64; PULSE 75–125; RESP 16–18; TEMP 36.1–36.8; O2SAT 93–96; BMI 27.3
--- NOTE | 2025-08-02 00:53 | EKG12_ITS ---
Test Reason : POSS-A-FIB Blood Pressure : */* mmHG Vent. Rate : 120 BPM Atrial Rate : * BPM P-R Int : * ms QRS Dur : 76 ms QT Int : 292 ms P-R-T Axes : * 60 43 degrees QTcB Int : 412 ms Atrial fibrillation with rapid ventricular response Abnormal ECG Confirmed by Black Jordan ([id number]), graphics editor GAVINO ZEPEDA ([id number]) on 08/04/2025 8:43:03 AM Referred By: Confirmed By: Black Jordan
[2025-08-02] MEDS: 0.9% Normal Saline (1000mL) 1,000 ML 125 ML IV ×3 (01:03→17:09)
[2025-08-02] MEDS: 0.9% Saline Lock 10 ML Syringe IV ×3 (02:02→21:47)
[2025-08-02 04:42] LABS: Hematocrit 30.5 % (37-47); Hemoglobin 9.7 g/dL (12.0-15.0); Immature Granulocytes Count 0.040 X10^3/uL (0.0-0.0); Mean Corp Hgb Conc 31.8 g/dL (32-36); Mean Corpuscular Volume 87.4 fL (81-99); Mean Platelet Vol. 9.6 fl (6.2-12.0); NRBC Flagged by Analyzer 0 % (0-5); POSITIVE DIFFERENTIAL YES; Platelet Count 178 K/mm3 (150-450); RBC Distribution Width CV 19.0 % (11.6-14.6); RBC Distribution Width SD 61.1 fl (35.1-43.9); Red Blood Count 3.49 M/mm3 (4.2-5.4); White Blood Count 4.9 K/mm3 (4.4-11.0)
[2025-08-02 05:06] LABS: Anion Gap 12 (5-15); BUN 12 mg/dL (4-19); BUN/Creat Ratio 19.1 RATIO (10-20); Calcium,Total 7.7 mg/dL (7.6-11.0); Carbon Dioxide 19.8 mmol/L (21.0-32.0); Chloride 106 mmol/L (98-108); Estimated Creatinine Clearance 63.89 ml/min (50-250); Glucose 166 mg/dL (70-99); Potassium 4.0 mmol/L (3.3-5.1)
[2025-08-02] MEDS: Metoprolol(XL)Succ 50 MG Tablet PO (09:37)
[2025-08-02] MEDS: Cholecalciferol (VIT D3) 25 MCG TABLET (1,000 UNITS) 50 MCG PO (09:37)
--- NOTE | 2025-08-02 09:41 | PN_ITS ---
Progress Note The patient is a 79-year-old female presenting with acute syncope in the context of several days of increasing non-specific symptoms including fatigue, weakness, and poor appetite. She reports new onset gastrointestinal symptoms: heartburn, nausea, and dysphagia. She has not been eating much recently. The patient and her were counseled regarding the increased risk of infection due to chronic steroid therapy. Physical Exam Const alert, oriented x3, no apparent distress and healthy appearing General Appearance: cooperative GI normal to inspection, nondistended, normoactive bowel sounds, soft to palpation, non-tender and non-distended Percussion: normal to percussion Rectal Exam: deferred Assessment & Plan Assessment/Plan (1) Adrenal insufficiency: (2) Anticoagulated on apixaban: (3) Orthostatic hypotension: (4) Peripheral vertigo involving left ear: (5) Dysphagia: (6) Syncope and collapse: PLAN: Assessment 79-year-old female with acute syncope and non-specific symptoms. Primary Concerns: * Acute Syncope:?Etiology is currently unknown and may be related to dehydration from poor intake, GI bleeding, or an infectious process. * New Onset GI Symptoms:?Heartburn, nausea, and dysphagia may indicate esophagitis, gastritis, peptic ulcer disease, or a potential upper GI bleed, which is a significant concern given her anticoagulation and steroid dependence. * Chronic Steroid Use:?Places the patient at higher risk for infection (e.g., GI infection, sepsis) and further immunosuppression. * Anticoagulation:?Increases the risk of significant hemorrhage, particularly in the GI tract. * Dehydration/Malnutrition:?Secondary to poor appetite and dysphagia. * Multiple Comorbidities:?Require careful management and consideration in treatment planning. Plan Diagnostics: * EGD (Esophagogastroduodenoscopy):?Scheduled for tomorrow to investigate the cause of the dysphagia, heartburn, nausea, and potential source of GI bleeding or infection. Treatment: * Continue proton Pump Inhibitor (PPI) therapy for GI symptoms; Hold anticoagulation prior to EGD per protocol. Visit Charges Inpatient E&M: [address] [place] [id number]
--- NOTE | 2025-08-02 10:32 | PN_ITS ---
Subjective Subjective Patient seen and examined with her nurse by her bedside. She had no active complaints this morning. Review of systems otherwise negative. She is for EGD tomorrow. Objective Data Objective Data Vital Signs: Vital Signs Temp Pulse Resp BP Pulse Ox O2 Del Method O2 Flow Rate 96.9 F L 117 H 18 98/60 96 Nasal Cannula 2 08/02/25 02:10 08/02/25 09:37 08/02/25 02:10 08/02/25 02:10 08/02/25 07:43 08/02/25 07:43 08/02/25 09:03 Oxygen Flow Rate (L/min) 2 Oxygen Delivery Method Nasal Cannula Weight: 175 lb 0.752 oz Body Mass Index (BMI) 27.3 Intake & Output: Intake and Output for Last 24 Hours 07/31/25 08/01/25 08/02/25 23:59 23:59 23:59 Intake Total 1220 / 1220 1010 / 1010 2096.25 / 2096.25 Output Total 250 / 250 Balance 1220 / 1220 760 / 760 2096.25 / 2095.25 Lab / Micro Data 08/02/25 04:08 08/02/25 04:08 Labs: Laboratory Results - last 24 hr 08/02/25 04:08: WBC 4.9, RBC 3.49 L, Hgb 9.7 L, Hct 30.5 L, MCV 87.4, MCH 27.8, MCHC 31.8 L, RDW Std Deviation 61.1 H, RDW Coeff of Lynn 19.0 H, Plt Count 178, MPV 9.6, Immature Gran % (Auto) 0.800, Neut % (Auto) 75.0 H, Lymph % (Auto) 12.1 L, [place] % (Auto) 11.7 H, Eos % (Auto) 0.2, Baso % (Auto) 0.2, Absolute Neuts (auto) 3.6, Absolute Lymphs (auto) 0.59 L, Nucleated RBC % 0, Sodium 138, Potassium 4.0, Chloride 106, Carbon Dioxide 19.8 L, Anion Gap 12, BUN 12, C reatinine 0.63 L, Estim Creat Clear Calc 63.89, Est GFR (MDRD) Non-Af 91, BUN/Creatinine Ratio 19.1, Glucose 166 H, Calcium 7.7 Rhythm Strip Rhythm Strip: Sinus Tach Rate: 120 Ectopy: None Physical Exam Const alert, oriented x3, no apparent distress and average body habitus General Appearance: cooperative and comfortable HEENT normocephalic, head/scalp atraumatic, hearing grossly normal bilaterally, nasal mucous membranes and turbinates normal, moist oral mucous membranes and oropharynx normal Eyes PERRL, EOMs intact bilaterally and conjunctivae normal Neck full ROM, supple and no JVD Lymph Lymphatic: no lymphedema noted Chest inspection of chest normal Resp normal respiratory effort, normal air movement, no use of accessory muscles and clear to auscultation bilaterally Cardio regular rhythm, S1 normal heart sound, S2 normal heart sound, no murmurs and peripheral pulses 2+ throughout Cardio Narrative: Tachycardic, regular rhythm. GI normal to inspection, nondistended, normoactive bowel sounds, soft to palpation, non-tender and non-distended Back/Spine normal ROM Extremity normal to inspection, full ROM, normal capillary refill, no clubbing, cyanosis or edema, no calf tenderness and no pedal edema General Extremity: no tenderness to palpation of joints or extremities Skin no rashes or lesions noted General Skin Exam: no breakdown Neuro CN's II-XII intact bilaterally, moves all extremities and no focal motor deficits Speech: speech normal Motor Exam: general weakness Psych mental status grossly normal, thought process normal, cooperative and affect normal Appearance: appropriate Assessment & Plan Assessment/Plan (1) Syncope and collapse: PLAN: Plan #Syncope * Likely due to dehydration and decreased intake. She has a history of adrenal insufficiency and was recently admitted in June 2025 for syncope. Her prednisone dose was increased. She has been following up with endocrinology and she was switched to hydrocortisone. On the day of admission she also had syncope. * CT brain negative and CT of the chest showed no evidence of PE. There was also concern for vertigo and patient said that she had a history of dysphagia which had worsened significantly over the past week and she had not been eating or drinking well. * Patient currently feeling much better. Gastroenterology consulted for evaluation on account of her dysphagia. * hydrate with IVF NS @ 125cc/hr * PT/OT on board * fall precautions * for EGD tomorrow * #History of dysphagia in the setting of achalasia with esophageal dilatation * GI on board. For EGD tomorrow. * had EGD by GI in January 2025 which showed abnormal esophageal motility with concern for achalasia. Had esophageal dilatation done then. * dysphagia has worsened and she is now barely even tolerating liquids * * #Hypokalemia: resolved # History of adrenal insufficiency: * Follows with endocrinology. * Her prednisone was switched to p.o. hydrocortisone by endocrinology. Will continue this. #Urinary history of melanoma * Had a subungual melanoma of her left index finger status post excision. She also had subsequent regional axillary lymph node recurrence. Was on chemotherapy and had subsequent severe colitis. Keytruda therapy discontinued * Follow with oncology outpatient basis * #History of paroxysmal A-fib: on eliquis. HR at 117 this morning. ON PO metoprolol XL 50mg daily. Monitor HR and adjust as needed. Hold eliquis for EGD tomorrow #History of chronic pericardial effusion: S/p recent cardiac tamponade s/p pericardial drain placement. Stable. DVT prophylaxis: Not indicated as patient on Eliquis. Hold eliquis today for EGD tomorrow Charges/Coding Visit Charges Inpatient E&M: 69041 Subs Hosp L2
[2025-08-02 11:21] LABS: Troponin T High Sensitivity 17 ng/L (<=14)
[2025-08-02 12:46] LABS: Troponin T High Sens 2 HR 17 ng/L (<=14)
[2025-08-02 15:06] LABS: Troponin T High Sens 4 HR 15 ng/L (<=14)
[2025-08-02] MEDS: MELATONIN 3 MG TABLET PO (21:22)
[2025-08-03] VITALS (14 sets, daily range): BP systolic 113–144; BP diastolic 55–69; PULSE 77–102; RESP 14–18; TEMP 36.1–36.7; O2SAT 91–97
[2025-08-03] MEDS: 0.9% Normal Saline (1000mL) 1,000 ML 125 ML IV ×3 (00:13→19:46)
[2025-08-03 03:36] LABS: Hematocrit 27.6 % (37-47); Hemoglobin 8.5 g/dL (12.0-15.0); Immature Granulocytes Count 0.020 X10^3/uL (0.0-0.0); Mean Corp Hgb Conc 30.8 g/dL (32-36); Mean Corpuscular Volume 88.2 fL (81-99); Mean Platelet Vol. 9.9 fl (6.2-12.0); NRBC Flagged by Analyzer 0 % (0-5); POSITIVE DIFFERENTIAL YES; Platelet Count 168 K/mm3 (150-450); RBC Distribution Width CV 18.5 % (11.6-14.6); RBC Distribution Width SD 59.7 fl (35.1-43.9); Red Blood Count 3.13 M/mm3 (4.2-5.4); White Blood Count 3.3 K/mm3 (4.4-11.0)
[2025-08-03 03:55] LABS: Anion Gap 9 (5-15); BUN 10 mg/dL (4-19); BUN/Creat Ratio 20.3 RATIO (10-20); Calcium,Total 7.5 mg/dL (7.6-11.0); Carbon Dioxide 20.1 mmol/L (21.0-32.0); Chloride 107 mmol/L (98-108); Estimated Creatinine Clearance 63.89 ml/min (50-250); Glucose 143 mg/dL (70-99); Potassium 4.0 mmol/L (3.3-5.1)
--- NOTE | 2025-08-03 13:57 | CASEMGMT ---
Social Work SW spoke the patient and her regarding discharges to a skilled rehab facility vs continuing OP therapy at [place]. Patient requested SW check back after her procedure today. CURLY Thomas
--- NOTE | 2025-08-03 14:34 | PCM.PRE.AN2 ---
ASA Classification* ASA Classification ASA Classification: 4 Assessment & Plan Anesthesia* Anesthesia Assessment Anesthesia Assessment: Discussed sedation and/or anesthesia options, risks, benefits, and alternatives with patient/parents/legal guardian/POA. Questions invited. The patient/parents/legal guardian/POA seems to understand and agrees to proceed with anesthesia plan. Reviewed the physical assessment, medical history, allergy history and patient home medications list prior to surgery/procedure/anesthetic and documented any changes. Performed airway and anesthesia risk assessments. Anesthesia Type Anesthesia Type: MAC Anesthesia Focused Assessment* Temperature: 97.7 F Pulse Rate: 85 Blood Pressure: 144/59 Respiratory Rate: 17 Pulse Ox: 95 Oxygen Flow Rate (L/min): 2 Airway Assessment Mouth opens: >3 cm Mallampati Score: II Labs Anesthesia Preop lab: CBC WBC, (4.4-11.0) 3.3 K/mm3 L Today, 03:05 RBC, (4.2-5.4) 3.13 M/mm3 L Today, 03:05 Hgb, (12.0-15.0) 8.5 g/dL L Today, 03:05 Hct, (37-47) 27.6 % L Today, 03:05 Plt Count, (150-450) 168 K/mm3 Today, 03:05 CHEMISTRY Potassium, (3.3-5.1) 4.0 mmol/L Today, 03:05 Sodium, (133-145) 136 mmol/L Today, 03:05 Magnesium, (1.5-2.2) 2.5 mg/dL H 08/01/25, 04:50 Phosphorus, (2.7-4.5) 3.7 mg/dL 08/01/25, 04:50 BUN, (4-19) 10 mg/dL Today, 03:05 Creatinine, (0.70-1.20) 0.49 mg/dL L Today, 03:05 Glucose, (70-99) 143 mg/dL H Today, 03:05 POC Glucose, (74-106) 102 mg/dL 06/10/25, 01:44 TSH, (0.300-4.200) 0.686 uIU/mL 01/23/25, 04:50 COAG PT, (11.7-14.9) 17.6 SECONDS H 06/28/25, 07:50 Urine Test Negative Negative 08/27/23, 22:15 Pre-Assessment Diagnosis/Proposed Procedure Planned Operative Procedure(s): EGD Anesthesia History Anesthesia History - environmental aide: Anesthesia History - environmental aide Hx Hospitalization Yes: 2023 FOR PASSING OUT/ 01/28/25 11:21 DEHYDRATION, 01/2024 Any Problems With Anesthesia No 08/02/25 22:13 Cholinesterase deficiency No 08/02/25 22:13 You/Your Family Experience No 08/02/25 22:13 fever (hyperthermia) with Relationship Recent Exposure to Contagious No 08/02/25 22:13 Disease Does patient have nerve No 08/02/25 22:13 stimulator Patient instructed to have No 08/02/25 22:13 device shut off --Does patient have Pacemaker No 08/02/25 22:14 or ICD? When Was Last Pacemaker Check QUESTION #4 FULL TEXT: You/Your Family Experience fever (hyperthermia) with Anesthesia Last Oral Intake Last Oral intake: Last Oral Intake NPO since 00:01 08/02/25 22:14 Meds taken in AM with sips of No 08/02/25 22:14 water? Meds patient instructed to take am of surgery PONV PONV - environmental aide: PONV - environmental aide Female HX of Motion Sickness HX of N/V After Surgery Non-Smoker Duration of Surgery greater than 60 minutes Number of Risk Factors PONV Score Height & Weight Height & Weight: Anesthesia: Height & Weight Height 5 ft 7 in 08/02/25 22:14 Weight: 79.4 kg 08/02/25 22:14 Body Mass Index (BMI) 27.3 08/02/25 22:14 Respiratory Assessment Respiratory Assessment - environmental aide: Respiratory Tract Infection Hx - environmental aide Hx Respiratory Tract Infection No 08/02/25 22:13 STOP Sleep Apnea STOP Sleep Apnea - environmental aide: STOP Sleep Apnea - environmental aide Hx Hypertension Yes 08/01/25 13:41 Hx Sleep Apnea Yes 07/31/25 17:20 CPAP No 07/31/25 17:20 BIPAP No 07/31/25 17:20 Do you snore loudly (louder than talking or can be heard Do you often feel tired/ fatigued/ sleepy during daytime? Has anyone observed you stop breathing during sleep? STOP Results Positive 07/31/25 17:20 QUESTION #5 FULL TEXT : Do you snore loudly (louder than talking or can be heard through closed doors)? Tobacco Use History Tobacco Use History - environmental aide: Tobacco Use History - environmental aide Tobacco Use Cigarettes 07/28/23 22:00 Smoking Status Former smoker 07/31/25 17:20 Hx Tobacco Use No 07/31/25 17:20 Years Smoking Packs Smoked per Day Smoking Cessation Date was No - quit smoking greater 07/31/25 17:20 within the last 15 years than 15 years ago Hx Smoking Cessation Date 08/27/89 07/31/25 17:20 Hx Smoking Cessation No 07/31/25 17:20 Counseling Hematologic Medial History Hematologic Hx - environmental aide: Hematologic Medical Hx - insulator technician Hx of Blood Transfusion Yes 07/31/25 17:20 Hx of Transfusion in last 3 No 07/31/25 17:20 Months Date of Last Transfusion (if within last 3 months) Ever experience any problems No 07/31/25 17:20 with transfusion(s)? Specify any problems Hx of Preganancy in last 3 No 07/31/25 17:20 Months Nurse Filling Out Transfusion HSMUCKER 07/31/25 17:20 & Questions: Date: 07/31/25 07/31/25 17:20 Time: 17:23 07/31/25 17:20 Patient unable to answer at this time (ie. confused, unrespo /Reproduction History /Reproductive History - environmental aide: /Reproductive Hx- environmental aide Hx Now No 08/02/25 22:13 Gestational Age (in weeks): EDC: Hx Hx Para Hx Section SAB No 08/02/25 22:13 Does the father of the baby or his family experience fever w Father of the baby Malignant Hypertension history comment Active Medications Active Medications: Current Medications Generic Name Dose Route Start Last Admin Trade Name Freq PRN Reason Stop Dose Admin Acetaminophen 650 mg 07/31/25 16:47 07/31/25 18:02 Acetaminophen 325 Mg Tablet PO 650 mg Q6H PRN PRN Administration Pain 1-10 Or Fever>100.7 Amlodipine Besylate 5 mg 08/01/25 10:00 08/02/25 09:36 Amlodipine 5 Mg Tablet PO 5 mg DAILY HAYLEE Administration Protocol Apixaban 5 mg 07/31/25 22:00 08/01/25 22:31 Apixaban 5 Mg Tablet PO Not Given On Hold: 08/02/25 10:43 BID HAYLEE Comment: hold o/a of EGD tomorrow Atorvastatin Calcium 40 mg 08/01/25 10:00 08/02/25 09:58 Atorvastatin Calcium 40 Mg Tablet PO 40 mg DAILY HAYLEE Administration Cholecalciferol 50 mcg 08/01/25 10:00 08/02/25 09:37 Cholecalciferol (Vit D3) 25 Mcg Tablet (1,000 Units) PO 50 mcg DAILY HAYLEE Administration Dicyclomine HCl 10 mg 07/31/25 16:47 Dicyclomine 10 Mg Capsule PO BID PRN abdominal pain Diphenoxylate HCl/Atropine 1 tablet 07/31/25 16:47 Diphenoxylate/Atrop 1 Tablet PO QHS PRN DIARRHEA Duloxetine HCl 20 mg 07/31/25 16:47 08/02/25 09:34 Duloxetine Hcl 20 Mg Capsule PO 20 mg DAILY HAYLEE Administration Hydrocortisone 10 mg 07/31/25 22:00 08/02/25 21:22 Hydrocortisone 10 Mg Tablet PO 10 mg BID HAYLEE Administration Sodium Chloride 250 mls @ 15 mls/hr 07/31/25 17:37 07/31/25 17:53 IV 0 mls/hr .[id number] PRN Infusion Saline Flush Sodium Chloride 250 mls @ 15 mls/hr 07/31/25 17:37 IV .[id number] PRN Additional IVPB Infusion Sodium Chloride 1,000 mls @ 125 mls/hr 08/01/25 08:55 08/03/25 08:19 IV 125 mls/hr .Q8H HAYLEE Administration Sodium Chloride 250 mls @ 15 mls/hr 08/01/25 10:16 IV .[id number] PRN Saline Flush Sodium Chloride 250 mls @ 15 mls/hr 08/01/25 10:16 IV .[id number] PRN Additional IVPB Infusion Lorazepam 0.5 mg 07/31/25 16:47 Lorazepam 2 Mg/Ml Syringe IV Q6H PRN PRN DIZZINESS Melatonin 3 mg 07/31/25 16:47 08/02/25 21:22 Melatonin 3 Mg Tablet PO 3 mg QHS PRN PRN Administration INSOMNIA Metoprolol Succinate 50 mg 07/31/25 16:47 08/02/25 09:37 Metoprolol(Xl)Succ 50 Mg Tablet PO 50 mg DAILY HAYLEE Administration Protocol Metoprolol Tartrate 5 mg 08/02/25 01:35 08/02/25 02:01 Metoprolol Tartrate 5 Mg/5 Ml Vial IV 5 mg Q6H PRN PRN Administration HR>110/m Protocol Nutritional Formula (Lactose Free) 120 ml 07/31/25 22:00 08/02/25 19:51 Ensure Plus High Protein 120 Ml Liquid PO Not Given 4X/DAY HAYLEE Ondansetron HCl 4 mg 07/31/25 16:47 08/02/25 12:15 Ondansetron 4 Mg/2 Ml Vial IV 4 mg Q8H PRN PRN Administration NAUSEA/VOMITING Pantoprazole Sodium 40 mg 08/01/25 10:00 08/02/25 09:37 Pantoprazole Sodium 40 Mg Tablet PO 40 mg DAILY HAYLEE Administration Senna 2 tablet 08/01/25 00:25 08/02/25 19:51 Senna Tablet PO Not Given BID HAYLEE Sodium Chloride 10 - 40 ml 07/31/25 17:37 08/02/25 21:47 0.9% Saline Lock 10 Ml Syringe IV 10 ml UD PRN Administration SALINE FLUSH Sodium Chloride 10 - 40 ml 08/01/25 10:16 08/02/25 12:18 0.9% Saline Lock 10 Ml Syringe IV 40 ml UD PRN Administration SALINE FLUSH PFSH Medical History Hypertension Adrenal insufficiency Syncope Septic shock Colitis Afib Type 2 IN (myocardial infarction) Neurologic disorder Cancer, metastatic Cerebral vascular disease Elevated troponin History of Holter monitoring Hx of malignant carcinoid tumor Weakness Chronic pain Obesity (BMI 30.0-34.9) History of syncope Generalized abdominal pain Wears glasses Arthritis Neuropathy History of pain when walking History of echocardiogram Cardiology follow-up encounter History of atrial fibrillation Syncopal episodes Metastatic melanoma Duodenal mass Post-menopausal History of steroid therapy Anemia History of immunosuppression therapy Seizures 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 Bilateral pulmonary embolism Pulmonary emboli Left leg DVT Anticoagulated Former smoker Mild cognitive impairment COVID-19 Polyneuropathy Essential hypertension GERD (gastroesophageal reflux disease) Hyperlipidemia Home Medications ?Medication ?Instructions ?Recorded ?Last Taken ?Type atorvastatin 40 mg tablet 40 mg PO DAILY cholesterol 09/24/20 07/30/25 History apixaban 5 mg tablet (Eliquis) 5 mg PO BID blood thinner 30 days 07/27/23 07/30/25 Rx #60 tabs pantoprazole 40 mg tablet,delayed 40 mg PO DAILY reflux #30 tabs 08/29/23 07/30/25 Rx release melatonin 3 mg tablet 3 mg PO HS PRN sleep 10/18/23 02/23/25 History ondansetron HCl 8 mg tablet 8 mg PO Q8H PRN nausea and vomiting 11/02/23 Unknown History tizanidine 4 mg capsule 4 mg PO Q8H PRN muscle spasticity 03/27/24 Unknown History diphenoxylate-atropine 2.5 1 tab PO QHS PRN diarrhea 01/28/25 Unknown History mg-0.025 mg tablet (Lomotil) amlodipine 5 mg tablet 5 mg PO DAILY hypertension 03/27/25 07/30/25 History cholecalciferol (vitamin D3) 50 50 mcg PO QDAY vitamin 03/27/25 07/30/25 History mcg (2,000 unit) capsule acetaminophen 500 mg tablet 1,000 mg PO Q8H PRN Pain Score 1-5 06/25/25 07/30/25 History metoprolol succinate 50 mg 50 mg PO DAILY heart rate 30 days 07/01/25 07/30/25 Rx tablet,extended release 24 hr #30 tabs duloxetine 20 mg capsule,delayed 20 mg PO QDAY 07/09/25 07/30/25 History release lisinopril 40 mg tablet 40 mg PO DAILY hypertension 07/10/25 07/30/25 History dicyclomine 10 mg capsule 10 mg PO BID PRN abdominal pain 07/20/25 Unknown History hydrocortisone 10 mg tablet 10 mg PO BID 07/20/25 07/30/25 History phenazopyridine 100 mg tablet 100 mg PO TID PRN pain 07/20/25 Unknown History psyllium 1 tbsp PO QDAY 07/20/25 07/30/25 History [id number] See Rx Instructions .Route .COMPLEX 07/31/25 07/30/25 History Allergy/AdvReac Type Severity Reaction Status Date / Time Sulfa (Sulfonamide Allergy Severe Swelling Verified 07/31/25 09:12 Antibiotics) amoxicillin AdvReac Severe Diarrhea Verified 07/31/25 09:12 sulfamethoxazole (From AdvReac Severe Anaphylaxis Verified 07/31/25 09:12 Bactrim) trimethoprim (From Bactrim) AdvReac Severe Swelling Verified 07/31/25 09:12 Family History Brother Alcoholism Asthma Myocardial infarction, Onset Age: 52 Seizures Skin cancer Sister CVA (cerebral vascular accident) Asthma Grandfather Asthma Father Myocardial infarction, Onset Age: 46 Had at age 46 & 62 Mother Myocardial infarction, Onset Age: 82 Surgical History History of tubal ligation Hx of tonsillectomy Hx of surgical procedure History of total left hip replacement History of amputation of finger History of right hip replacement History of cataract surgery History of eye surgery Social History household members: spouse Smoking Status: Former smoker Tobacco: How many years used: 30 how long ago did patient quit smokin years ago second hand exposure: No alcohol intake: current alcohol intake frequency: holidays/special occasions only Alcohol type: wine substance use type: does not use amy/mosque: None seatbelt use: always Review of Systems (Anesthesia) ROS Narrative System reviewed and no additional complaints, except as documented.
--- NOTE | 2025-08-03 15:35 | EGD_PTH ---
PATIENT: MISTI HUERTA LOC: [facility] U#:[id number] AGE/SX: 79/F ROOM: [facility] RE07/31/[address]: Dr. Rufus Silver DO : 1945 BED: 1 DIS: 08/04/2025 SPEC #: [id number] RECD: 08/03/25 16:24 STATUS: JOSE RAMON REQ #: [id number] MAYA: 08/03/25 15:[address]: Jason Antonio DEPT: SURGICAL PATHOLOGY RECD BY: Shakira Olsen ENTERED: 08/04/25 10:11 SP TYPE: EGD BIOPSY OTHR DR: DO Dr. Gary Leavitt MD Dr. Mark Tereletsky, DO Dr. Nana Yaa Koram, MD Dr. Prakash Chand, MD Dr. Rahsaan Friend, DO Heather Evans, NP-C JENNIFER Alicea PA Tissues: Duodenum, NOS Procedures: Surgery Specimen Level IV Comments: @ Ordering doctor for SUIV edited from to @ by GABE at 08/06/251615 @ Submitting doctor edited from to @ by GABE at 08/06/25 1616 HEADER OPERATION: EGD with biopsy PRE-OP DIAGNOSIS: Dysphagia, heartburn, nausea, abdominal pain TISSUE SUBMITTED: A- Duodenal submucosal mass MICROSCOPIC DIAGNOSIS A. Small intestine, duodenum, biopsy: * Normal villous architecture with focal Steven gland hyperplasia. * Negative for increased intraepithelial lymphocytes. MICROSCOPIC DESCRIPTION Slides are reviewed. GROSS DESCRIPTION A. Received in fixative is one container labeled with the patient's name and designated Duodenal submucosal mass. The specimen consists of two irregular fragments of thompson tissue, each measuring 0.4 cm. The specimen is totally submitted in one cassette. IN 08/04/2025 CPT:20040
[2025-08-03] MEDS: Lactated Ringers 1,000 ML 15 ML IV (15:39)
--- NOTE | 2025-08-03 16:32 | OP.PROVAT_ITS ---
08/03/2025 Gary Merrill [address] [place] [address] Re : Upper GI endoscopy procedure for Shikha Terry Dear Dr. Merrill This procedure was performed on Sunday, August 03, 2025. My impressions and recommendations are as follows: Impressions : - Normal esophagus. - No gross lesions in the stomach. - Likely benign duodenal mass. Biopsied. Recommendations : - Await pathology results. - Repeat upper endoscopy. - Continue present medications. My findings are described in the full procedure note, which is enclosed. If I can be of further assistance, please feel free to contact me at . Sincerely, Jason Antonio, 08/03/2025 4:31:06 PM This report has been signed electronically.
--- NOTE | 2025-08-03 16:32 | OP.EGD_ITS ---
Patient Name: Shikha Terry Procedure Date: 08/03/2025 3:49 PM Date of : 1945 Age: 79 Procedure: Upper GI endoscopy Indications: Epigastric abdominal pain, Functional Dyspepsia Providers: Jason Antonio DO Medicines: Monitored Anesthesia Care Patient Profile: This is a 79 year old female. Refer to note in patient chart for documentation of history and physical. Patient has symptoms of acute abdominal cramping, acute abdominal distention, acute epigastric abdominal pain, acute dyspepsia and chronic nausea. Complications: No immediate complications. Procedure: Pre-Anesthesia Assessment: - Prior to the procedure, a History and Physical was performed, and patient medications and allergies were reviewed. The patient is competent. The risks and benefits of the procedure and the sedation options and risks were discussed with the patient. All questions were answered and informed consent was obtained. Patient identification and proposed procedure were verified by the physician in the pre-procedure area. Mental Status Examination: alert and oriented. Airway Examination: normal oropharyngeal airway and neck mobility. Respiratory Examination: clear to auscultation. CV Examination: normal. Prophylactic Antibiotics: The patient does not require prophylactic antibiotics. Prior Anticoagulants: The patient has taken no anticoagulant or antiplatelet agents except for NSAID medication. ASA Grade Assessment: II - A patient with mild systemic disease. After reviewing the risks and benefits, the patient was deemed in satisfactory condition to undergo the procedure. The anesthesia plan was to use monitored anesthesia care (MAC). Immediately prior to administration of medications, the patient was re-assessed for adequacy to receive sedatives. The heart rate, respiratory rate, oxygen saturations, blood pressure, adequacy of pulmonary ventilation, and response to care were monitored throughout the procedure. The physical status of the patient was re-assessed after the procedure. After obtaining informed consent, the endoscope was passed under direct vision. Throughout the procedure, the patient's blood pressure, pulse, and oxygen saturations were monitored continuously. The gastroscope was introduced through the mouth, and advanced to the third part of the duodenum. Small bowel enteroscopy was deemed necessary. The upper GI endoscopy was accomplished without difficulty. The patient tolerated the procedure well. Scope In: 4:12:57 PM Scope Out: 4:16:42 PM Total Procedure Duration Time 0 hours 3 minutes 45 seconds Findings: The examined esophagus was normal. No gross lesions were noted in the stomach. A medium-sized submucosal mass with no bleeding was found in the third portion of the duodenum. Biopsies were taken with a cold forceps for histology. Impression: - Normal esophagus. - No gross lesions in the stomach. - Likely benign duodenal mass. Biopsied. Recommendation: - Await pathology results. - Repeat upper endoscopy. - Continue present medications. Procedure Code(s): --- Professional --- 26163, Small intestinal endoscopy, enteroscopy beyond second portion of duodenum, not including ileum; with biopsy, single or multiple CPT copyright 2021 [employer]. All rights reserved. The codes documented in this report are preliminary and upon instrument technician helper review may be revised to meet current compliance requirements. Jason Antonio DO 08/03/2025 4:31:06 PM This report has been signed electronically. Number of Addenda: 0 Note Initiated On: 08/03/2025 3:49 PM
--- NOTE | 2025-08-03 16:35 | PCM.POST.ANE ---
Anesthesia: Postop Eval I Current Vital Signs Temperature: 97.4 F Pulse Rate: 101 Blood Pressure: 131/55 Respiratory Rate: 18 Pulse Ox: 95 Oxygen Delivery Method: Nasal Cannula Oxygen Flow Rate (L/min): 2 Assessment Airway patent: Yes Spontaneous unlabored respirations: Yes Mental status: Awake and Calm nausea: No Vomiting: No Anesthesia Complication: No Fluid Hydration Crystalloid volume administer (ml): 300 Total IV fluid infused: 300 Progress Note Anesthesia document: Postop Eval 1 completed: Yes
--- NOTE | 2025-08-03 16:39 | PCM.POSTANE2 ---
Anesthesia Postop Eval I Sum Postop Eval Completion status Anesthesia document: Postop Eval 1 completed: Yes Anesthesia Postop Eval I Summary Anesthesia Postop Eval I Summary: Anesthesia Postop Eval I: Assessment Summary Airway patent Yes 08/03/25 16:36 [email or web address] Spontaneous unlabored Yes 08/03/25 16:36 [email or web address] respirations Mental status Awake,Calm 08/03/25 16:36 [email or web address] nausea No 08/03/25 16:36 [email or web address] Vomiting No 08/03/25 16:36 [email or web address] Anesthesia Postop Eval I: Fluid Summary Crystalloid volume administer 300 08/03/25 16:36 [email or web address] (ml) Colloids volume administered ( ml) Blood Product volume administered (ml) Total IV fluid infused 300 08/03/25 16:36 [email or web address] Anesthesia Postop Eval I: Summary Notes Anesthesia Complication No 08/03/25 16:36 [email or web address] Anesthesia Complication Comment: Post-operative progress note Anesthesia: Postop Eval II Evaluation Mental status: Awake Pain Level: 0 nausea: No Vomiting: No
[2025-08-03] MEDS: Metoprolol(XL)Succ 50 MG Tablet PO (17:09)
[2025-08-03] MEDS: Cholecalciferol (VIT D3) 25 MCG TABLET (1,000 UNITS) 50 MCG PO (17:09)
[2025-08-03] MEDS: Ensure Plus High Protein 120 ML LIQUID PO (18:22)
--- NOTE | 2025-08-03 19:02 | PN.HOSP_ITS ---
Reason for Visit Chief Complaint: Syncopal episode Subjective Subjective Patient was seen and examined today, according to case management the patient may need to go to a prison facility for short-term rehab services. EGD today did not show any abnormality. Objective Data Objective Data Vital Signs: Vital Signs Temp Pulse Resp BP Pulse Ox O2 Del Method O2 Flow Rate 97.5 F L 92 18 132/58 H 91 Nasal Cannula 2 08/03/25 16:54 08/03/25 17:09 08/03/25 16:54 08/03/25 16:54 08/03/25 16:54 08/03/25 16:54 08/03/25 16:54 Oxygen Flow Rate (L/min) 2 Oxygen Delivery Method Nasal Cannula Weight: 79.4 kg Body Mass Index (BMI) 27.3 Intake & Output: Intake and Output for Last 24 Hours 08/01/25 08/02/25 08/03/25 23:59 23:59 23:59 Intake Total 1010 / 1010 3600.83 / 3750.83 3360.83 / 3360.83 Output Total 250 / 250 201 / 201 Balance 760 / 760 3599.83 / 3749.83 3159.83 / 3159.83 Lab / Micro Data 08/03/25 03:05 08/03/25 03:05 Labs: Laboratory Results - last 24 hr 08/03/25 03:05: WBC 3.3 L, RBC 3.13 L, Hgb 8.5 L, Hct 27.6 L, MCV 88.2, MCH 27.2, MCHC 30.8 L, RDW Std Deviation 59.7 H, RDW Coeff of Lynn 18.5 H, Plt Count 168, MPV 9.9, Immature Gran % (Auto) 0.600, Neut % (Auto) 79.7 H, Lymph % (Auto) 11.2 L, Ida % (Auto) 7.9, Eos % (Auto) 0.3, Baso % (Auto) 0.3, Absolute Neuts (auto) 2.6, Absolute Lymphs (auto) 0.37 L, Nucleated RBC % 0, Sodium 136, Potassium 4.0, Chloride 107, Carbon Dioxide 20.1 L, Anion Gap 9, BUN 10, C reatinine 0.49 L, Estim Creat Clear Calc 63.89, Est GFR (MDRD) Non-Af 97, B UN/Creatinine Ratio 20.3 H, Glucose 143 H, Calcium 7.5 L Rhythm Strip Rhythm Strip: Sinus Tach Rate: 120 Ectopy: None
[2025-08-04] VITALS (7 sets, daily range): BP systolic 125–146; BP diastolic 62–66; PULSE 82–93; RESP 18; TEMP 36.9–37; O2SAT 87–98
[2025-08-04] MEDS: 0.9% Normal Saline (1000mL) 1,000 ML 125 ML IV (03:46)
[2025-08-04 04:43] LABS: Hematocrit 30.0 % (37-47); Hemoglobin 9.5 g/dL (12.0-15.0); Immature Granulocytes Count 0.060 X10^3/uL (0.0-0.0); Mean Corp Hgb Conc 31.7 g/dL (32-36); Mean Corpuscular Volume 86.5 fL (81-99); Mean Platelet Vol. 8.8 fl (6.2-12.0); NRBC Flagged by Analyzer 0 % (0-5); POSITIVE DIFFERENTIAL YES; Platelet Count 198 K/mm3 (150-450); RBC Distribution Width CV 18.2 % (11.6-14.6); RBC Distribution Width SD 57.4 fl (35.1-43.9); Red Blood Count 3.47 M/mm3 (4.2-5.4); White Blood Count 2.8 K/mm3 (4.4-11.0)
[2025-08-04 05:07] LABS: Anion Gap 8 (5-15); BUN 5 mg/dL (4-19); BUN/Creat Ratio 10.9 RATIO (10-20); Calcium,Total 7.8 mg/dL (7.6-11.0); Carbon Dioxide 20.8 mmol/L (21.0-32.0); Chloride 107 mmol/L (98-108); Estimated Creatinine Clearance 63.89 ml/min (50-250); Glucose 147 mg/dL (70-99); Potassium 3.7 mmol/L (3.3-5.1)
[2025-08-04] MEDS: Metoprolol(XL)Succ 50 MG Tablet PO (09:09)
--- NOTE | 2025-08-04 10:53 | CASEMGMT ---
Social Work SW spoke with the patient regarding services at [facility]. Patient reported she wants to continue with OP therapy at [facility]. Patient reported she is already has this ordered. CURLY Thomas
[2025-08-04] MEDS: Cholecalciferol (VIT D3) 25 MCG TABLET (1,000 UNITS) 50 MCG PO (11:28)
--- NOTE | 2025-08-04 12:41 | DS.PCM_ITS ---
Providers Date of Admission: 07/31/25 Date of Discharge: 08/04/25 Primary Care Physician: Dr. Gary Merrill MD Consultations 07/31/25 15:57 Consult: Gastroenterology Routine Consulting Provider: [facility] Reason for Consult: worsening dysphagia, h/o achalasia s/p esoph dilation EMERGENT Consult: No MD Notified: Yes Date Notified: 07/31/25 Time Notified: 16:46 Method of Notification: Text Reason For Visit: VERTIGO AND DIFFICULTY W/AMBULATION, RECURRENT Diagnosis Discharge Diagnosis (1) Syncope and collapse: Status: Acute Code(s): R55 - Syncope and collapse Medications at Discharge Home Medications atorvastatin 40 mg tablet 40 mg PO DAILY cholesterol 09/24/20 apixaban 5 mg tablet (Eliquis) 5 mg PO BID blood thinner 30 days #60 tabs 07/27/23 pantoprazole 40 mg tablet,delayed release 40 mg PO DAILY reflux #30 tabs 08/29/23 melatonin 3 mg tablet 3 mg PO HS PRN sleep 10/18/23 ondansetron HCl 8 mg tablet 8 mg PO Q8H PRN nausea and vomiting 11/02/23 tizanidine 4 mg capsule 4 mg PO Q8H PRN muscle spasticity 03/27/24 diphenoxylate-atropine 2.5 mg-0.025 mg tablet (Lomotil) 1 tab PO QHS PRN diarrhea 01/28/25 amlodipine 5 mg tablet 5 mg PO DAILY hypertension 03/27/25 cholecalciferol (vitamin D3) 50 mcg (2,000 unit) capsule 50 mcg PO QDAY vitamin 03/27/25 acetaminophen 500 mg tablet 1,000 mg PO Q8H PRN Pain Score 1-5 06/25/25 metoprolol succinate 50 mg tablet,extended release 24 hr 50 mg PO DAILY heart rate 30 days #30 tabs 07/01/25 duloxetine 20 mg capsule,delayed release 20 mg PO QDAY 07/09/25 lisinopril 40 mg tablet 40 mg PO DAILY hypertension 07/10/25 dicyclomine 10 mg capsule 10 mg PO BID PRN abdominal pain 07/20/25 hydrocortisone 10 mg tablet 10 mg PO BID 07/20/25 phenazopyridine 100 mg tablet 100 mg PO TID PRN pain 07/20/25 psyllium 1 tbsp PO QDAY 07/20/25 See Rx Instructions .Route .COMPLEX 07/31/25 Weight / BMI Weight Weight: 79.4 kg Body Mass Index (BMI) 27.3 ABG / Lab / Microbiology Data 08/04/25 04:34 08/04/25 04:34 Laboratory: Laboratory Results - last 24 hr 08/04/25 04:34: WBC 2.8 L, RBC 3.47 L, Hgb 9.5 L, Hct 30.0 L, MCV 86.5, MCH 27.4, MCHC 31.7 L, RDW Std Deviation 57.4 H, RDW Coeff of Lynn 18.2 H, Plt Count 198, MPV 8.8, Immature Gran % (Auto) 2.200 H, Neut % (Auto) 73.4 H, Lymph % (Auto) 13.6 L, [place] % (Auto) 10.0, Eos % (Auto) 0.4, Baso % (Auto) 0.4, Absolute Neuts (auto) 2.1, Absolute Lymphs (auto) 0.38 L, Nucleated RBC % 0, Sodium 136, Potassium 3.7, Chloride 107, Carbon Dioxide 20.8 L, Anion Gap 8, BUN 5, C reatinine 0.45 L, Estim Creat Clear Calc 63.89, Est GFR (MDRD) Non-Af 99, BUN/Creatinine Ratio 10.9, Glucose 147 H, Calcium 7.8 D/C Instructions Weight Bearing Status: Full weight bearing DC O2, CPAP, BIPAP Needs Home O2 Discharge instructions: No Discharge Plan Admission Admit Date/Time: 07/31/25 15:28 Primary Reason for Your Visit: Syncope Attending Provider: Rufus Silver Primary Care Provider: Gary Merrill Consulting Providers: Naseem Rios; Jason Antonio; Didi Day; Celeste Martinez; Kellie Can; Star Eckert; Maggie Eldridge Discharge Orders/Prescriptions Prescriptions: Continued atorvastatin 40 mg tablet 40 mg PO DAILY melatonin 3 mg tablet 3 mg PO HS PRN (Reason: sleep) tizanidine 4 mg capsule 4 mg PO Q8H PRN (Reason: muscle spasticity) cholecalciferol (vitamin D3) 50 mcg (2,000 unit) capsule 50 mcg PO QDAY amlodipine 5 mg tablet 5 mg PO DAILY duloxetine 20 mg capsule,delayed release(DR/EC) 20 mg PO QDAY acetaminophen 500 mg tablet 1,000 mg PO Q8H PRN (Reason: Pain Score 1-5) psyllium Powder 1 tbsp PO QDAY Rx Instructions: mix into at least 8 oz of water or juice before administering phenazopyridine 100 mg tablet 100 mg PO TID PRN (Reason: pain) dicyclomine 10 mg capsule 10 mg PO BID PRN (Reason: abdominal pain) hydrocortisone 10 mg tablet 10 mg PO BID Eliquis 5 mg Tablet 5 mg PO BID 30 Days Qty: 60 0RF Patient Comments: HOLD 7 DAYS PRIOR TO PROCEDURE PER pantoprazole 40 mg Tablet,Delayed Release (Dr/Ec) 40 mg PO DAILY Qty: 30 0RF ondansetron HCl 8 mg tablet 8 mg PO Q8H PRN (Reason: nausea and vomiting) Patient Comments: take 1 tablet by mouth every 8 hours if needed for nausea and vomiting diphenoxylate-atropine [Lomotil] 2.5-0.025 mg tablet 1 tab PO QHS PRN (Reason: diarrhea) [id number] See Rx Instructions .ROUTE .COMPLEX Rx Instructions: compound medication; lisinopril 40 mg tablet 40 mg PO DAILY Patient Comments: changed from 40mg to20mg about a month ago told to stop and start it again 07/03 metoprolol succinate 50 MG tablet 50 mg PO DAILY 30 Days Qty: 30 0RF Rx Instructions: Hold if heart rate less than 60/min Referrals / Follow Up: Gary Merrill MD [Primary Care Provider, Family Practice] Disposition Disposition (needs filled in before D/C Order can be placed): Home, Self Care
--- NOTE | 2025-08-04 15:10 | RAD_ITS ---
PROCEDURE: CHEST PA AND LATERAL 08/04/2025 REASON FOR EXAM: HYPOXIA TECHNIQUE: Procedure Code: RADCXR Modality: DX Procedure: CHEST PA AND LATERAL COMPARISON: CTA chest 06/28/2025. FINDINGS: Hardware: None. Heart: The cardiac silhouette is enlarged. This may represent pericardial effusion. Mediastinum: Unremarkable. Lungs: Small right and large left pleural effusions with atelectasis. Bones: No acute bony elements. RAD/Chest PA and Lateral IMPRESSION: Small right and large left pleural effusions with atelectasis. Reading Location: [id number]
--- NOTE | 2025-08-04 15:15 | CASEMGMT ---
RN NATALIIA updated that patient will need oxygen at discharge. Patient prefers [employer]. Script received and referral sent to [facility] via [facility] and arranged for tank to be delivered to patient's room. SHI WILLIAM updated SW and discharge plan.
--- NOTE | 2025-08-04 16:08 | PCM.HOSP.N ---
Hospitalist Note Oxygen testing reviewed, patient is ambulatory in the home and community and requires home oxygen with portability
--- NOTE | 2025-08-04 16:36 | PN_ITS ---
Progress Note ?79-year-old woman with a history of adrenal insufficiency secondary to melanoma treatment who was admitted with abdominal pain and syncope. She reports intermittent abdominal pain and regurgitation prior to admission. She underwent an upper endoscopy yesterday which was normal. The patient states she is feeling a little bit better today and expresses a desire to go home. Her was counseled on the possibility that her symptoms may be related to depression following her recent melanoma diagnosis and treatment complications. Physical Exam Const alert, oriented x3, no apparent distress and healthy appearing General Appearance: cooperative GI normal to inspection, nondistended, normoactive bowel sounds, soft to palpation, non-tender and non-distended Percussion: normal to percussion Rectal Exam: deferred Assessment & Plan Assessment/Plan (1) Syncope: PLAN: The patient is a 79-year-old female with a history of adrenal insufficiency and melanoma, admitted for evaluation of syncope and abdominal pain. * Abdominal Pain/Syncope:?Symptoms improved since admission. Endoscopy negative. Etiology remains unclear but symptoms may be linked to HPA axis issues related to adrenal insufficiency or psychological factors (depression related to melanoma diagnosis/treatment complications). Adrenal crisis must be considered given history. * Adrenal Insufficiency:?History of steroid therapy by an outpatient receiving checker. Must ensure appropriate stress-dose steroids are administered during this acute illness. * Melanoma:?Recent diagnosis with complications secondary to treatment. This may be a contributing factor to her current psychological and potentially somatic symptoms. * Depression:?Patient's symptoms are potentially linked to depression following her diagnosis and treatment complications. This was discussed with her . Plan * Abdominal Pain/Syncope:?Continue supportive care and monitoring. Given symptom improvement and negative endoscopy, focus shifts to optimizing underlying chronic conditions and psychological state. * Adrenal Insufficiency: * Continue current steroid regimen; ensure appropriate stress-dose coverage while inpatient. * Consult Endocrinology for co-management and recommendations for acute illness management. * Melanoma/Psychological: * Continue to monitor mental state and mood. * Consult Psychiatry/Psycho-oncology for formal evaluation and management of potential depression related to her cancer diagnosis as an outpatient * Disposition: * Patient desires discharge home. She is feeling better today. * Discuss discharge plan and necessary follow-ups with patient and again. Portions of this note were generated using voice recognition software ([employer] Dict[employer]). I have reviewed the contents and every effort has been made to ensure accuracy; however, inadvertent errors in grammar, spelling, punctuation, or word choice may occur, that were not noted before signing the document and should not alter the intended clinical meaning. Visit Charges Inpatient E&M: 44865 Subs Hosp L3
== END 2025-08-04 16:42 | disposition home or self-care (01) | DRG 641 ==
LOC: ED 16:09 → PCU 16:26
PROVIDERS: Internal Medicine Gastroenterology; Student in an Organized Health Care Education/Training Program; Admitting Provider Hospitalist; Emergency Provider Emergency Medicine; PCP Family Medicine; Visit Provider Internal Medicine
PROC: 0DJ08ZZ Inspection of Upper Intestinal Tract, Via Natural or Artificial Opening Endoscopic (ICD-10-PCS; CPT 43235; principal; 2025-08-03 15:30)
DX: E86.0 Dehydration (principal); I31.39 Other pericardial effusion (noninflammatory); I24.89 Other forms of acute ischemic heart disease; E27.40 Unspecified adrenocortical insufficiency; K22.0 Achalasia of cardia; R13.10 Dysphagia, unspecified; Z66 Do not resuscitate; C43.9 Malignant melanoma of skin, unspecified; I10 Essential (primary) hypertension; F32.A Depression, unspecified; I48.0 Paroxysmal atrial fibrillation; H81.392 Other peripheral vertigo, left ear; E78.5 Hyperlipidemia, unspecified; E87.6 Hypokalemia; I95.1 Orthostatic hypotension; R12 Heartburn; K31.9 Disease of stomach and duodenum, unspecified; R53.81 Other malaise; Z87.891 Personal history of nicotine dependence; Z79.01 Long term (current) use of anticoagulants; Z80.8 Family history of malignant neoplasm of other organs or systems; Z86.711 Personal history of pulmonary embolism; G89.29 Other chronic pain; Z86.718 Personal history of other venous thrombosis and embolism; Z82.49 Family history of ischemic heart disease and other diseases of the circulatory system; Z86.16 Personal history of COVID-19; R10.9 Unspecified abdominal pain; Z98.51 Tubal ligation status
CPT/HCPCS: 36415; 70450; 71046; 71275; 80048; 83735; 84100; 84484; 85025; 85027; 88305; 92526; 92610; 93005; 94668; 97116; 97162; 97165; 97530; 97535; 97802; 99285; Q9967; A4216; J2405

== ENCOUNTER → 2025-08-06 | Outpatient (CLI) | payer MEDICARE, OTHER, SELFPAY ==
--- NOTE | 2025-08-06 10:19 | US_ITS ---
PROCEDURE: THORACENTESIS W US 08/06/2025 REASON FOR EXAM: PLEURAL EFFUSION TECHNIQUE: THORACENTESIS W US. The procedure as well as the benefits and possible complications including infection, bleeding and pneumothorax were explained to the patient. Informed consent was obtained. The overlying skin overlying the left pleural space was prepped and draped in the usual sterile fashion. Following local anesthetic application and under direct sonographic guidance, a 5 English drainage catheter was placed into the left pleural space. 1390 mL of dark patricio colored fluid was aspirated. A 100 mL sample was sent to the laboratory for analysis. COMPARISON: None FINDINGS: Successful ultrasound-guided left thoracentesis. US/Thoracentesis W US IMPRESSION: Successful ultrasound-guided left thoracentesis with removal of 1390 mL of dark patricio colored fluid. The patient tolerated the procedure well. No immediate complication noted. Reading Location: [place] [id number]
--- NOTE | 2025-08-06 10:45 | FLU_PTH ---
PATIENT: MISTI HUERTA LOC: [facility]#:[id number] AGE/SX: 79/F ROOM: RE08/06/[address]: Dr. Gary Merrill MD : 1945 BED: DIS: 08/06/2025 SPEC #: [id number] RECD: 08/06/25 15:20 STATUS: JOSE RAMON RESaul #: [id number] MAYA: 08/06/25 10:[address]: Gary Merrill DEPT: CYTOLOGY RECD BY: Shakira Olsen Tissues: Pleural fluid, NOS Procedures: Special Stain Group II Surgery Specimen Level IV Cytospin Fluid HEADER OPERATION: Ultrasound guided thoracentesis PRE-OP DIAGNOSIS: Pleural effusion TISSUE SUBMITTED: A- Thoracentesis fluid for cytology DIAGNOSIS CYTOLOGY A. Pleural effusion, thoracentesis (cytospin, cellblock): - No malignant cells identified. CYTOLOGY STUDY Slides are reviewed. CYTOLOGY GROSS A. Received is ~75 ml of cloudy-yellow fluid labeled with the patient's name and and designated per the requisition as Thoracentesis fluid. Submitted for cytology and cell block preparation. 08/07/2025 CPT: 83426,13084
--- NOTE | 2025-08-06 10:50 | RAD_ITS ---
EXAM: XR Chest, 2 Views CLINICAL INDICATION: POST THORACENTESIS TECHNIQUE: Frontal views of the chest with and without inspiration. COMPARISON: No relevant prior studies available. FINDINGS: LUNGS AND PLEURAL SPACES: Left basilar atelectasis or pneumonia. Left pleural effusion. Small right pleural effusion. No pneumothorax. HEART: Cardiomegaly with mild congestion. MEDIASTINUM: Unremarkable. Normal mediastinal contour. BONES/JOINTS: Unremarkable. No acute fracture. RAD/Chest Insp/Exp 2 View IMPRESSION: 1. Left basilar atelectasis or pneumonia. 2. Cardiomegaly with mild congestion. 3. Left pleural effusion. 4. Small right pleural effusion. No pneumothorax. Reading Location: [facility]
[2025-08-06] MEDS: Lidocaine 2% (20 ml mdv) 20 ML Vial INFILT (10:55)
--- NOTE | 2025-08-06 11:25 | PCM.OPRPT ---
Multi Select Codes Radiology Radiology US Procedures: 27504 Thoracentesis Operative Report (Standard) Operative Information Date of Procedure: 08/06/25 Pre-Operative Diagnosis: Left pleural effusion Post-Operative Diagnosis: Left pleural effusion Surgery/Procedure Performed: Ultrasound-guided thoracentesis long distance billing operator: No Type of Anesthesia: Local Procedure Start Time: 10:54 Procedure Stop Time: 11:13 Select all DRAINS/GRAFTS/IMPLANTS that apply: None Estimated Blood Loss: 0 Specimen collected: No Description of surgery: PROCEDURE: Ultrasound Guided Thoracentesis, left ORDERING PROVIDER: Dr. Merrill INDICATION: Female, 79 years old. Left pleural effusion. PROVIDER: CHUCKY Miner PROCEDURE: The risks, benefits, and alternatives to the procedure were explained to the patient. The specific risks of bleeding, infection, and pneumothorax requiring chest tube insertion were discussed and accepted. Patient has held her EliLingtis for 4 days. Written informed consent was obtained. The patient was placed in the sitting, upright position. Ultrasonographic evaluation of the bilateral lower pleural spaces was carried out. An adequate pocket was identified in the left lower pleural space. The overlying skin was prepped with chlorhexidine and draped in sterile fashion. 2 % lidocaine was administered subcutaneously for local anesthesia. Under ultrasound guidance, a 5-Tristanian thoracentesis needle/catheter system was advanced into the left posterior lower pleural fluid collection. 1390 ml of clear dark yellow colored fluid was drained. The catheter was removed, and a sterile dressing was applied. The patient tolerated the procedure well without any immediate complications. A chest x-ray was ordered. There was no evidence of pneumothorax. The procedure was proctored by Dr. Reese. IMPRESSION: Successful ultrasound guided thoracentesis of left pleural effusion. Surgical Findings: None Complications Complications: No
[2025-08-06 11:46] VITALS: BP 138/55; PULSE 52; RESP 18; O2SAT 99
[2025-08-06 11:50] VITALS: BP 141/84; BP 146/89; PULSE 54; PULSE 55; RESP 18; O2SAT 100; O2SAT 99
[2025-08-06 15:52] LABS: Cytology, Body Fluid / CSF SEE PATHOLOGY REPORT
[2025-08-06 16:58] LABS: Glucose, Body Fluid 119 mg/dL (Not Establ.)
[2025-08-06 17:32] LABS: Body Fluid Mononuclear WBC # 0.069 10^3/uL; Body Fluid Mononuclear WBC % 92.0 %; Body Fluid Polynuclear WBC # 0.006 10^3/uL; Body Fluid Polynuclear WBC % 8.0 %; White Blood Count/Body Fluid 0.075 10^3/uL
[2025-08-06 17:37] LABS: Auto B Fluid Analyzer BKGD Ct COUNTS W/IN LIMITS (W/IN LIMITS)
[2025-08-06 17:38] LABS: Source- Body Fluid THORACENTESIS
[2025-08-06 18:28] LABS: Appearance/Body Fluid CLEAR; Body Fluid QC Type(s) BF1Q; Color/Body Fluid YELLOW
[2025-08-06 20:28] LABS: Red Cell Count/Body Fluid 63 /mm3
[2025-08-06 21:38] LABS: Neutrophil (Segs) 6 %
[2025-08-06 21:41] LABS: Plasma Cell/BodyFluid 0 %
[2025-08-07 15:21] LABS: Pathologist Comment/Body Fluid Reviewed
[2025-08-10 11:08] LABS: pH, Body Fluid 11254 8.0 (Not Estab.)
== END | disposition home or self-care (01) ==
PROVIDERS: PCP Family Medicine; Referring Provider Family Medicine; Visit Provider Family Medicine
DX: J90 Pleural effusion, not elsewhere classified (principal)
CPT/HCPCS: 32555; 71046; 82150; 82945; 83615; 83986; 84157; 85048; 87070; 87075; 87205; 88108; 88305; 88313; 89050

== ENCOUNTER → 2025-08-11 | Outpatient (CLI) | payer MEDICARE, OTHER, SELFPAY ==
--- NOTE | 2025-08-11 12:34 | RAD_ITS ---
PROCEDURE: CHEST PA AND LATERAL 08/11/2025 REASON FOR EXAM: EFFUSION S/P TAP TECHNIQUE: Procedure Code: RADCXR Modality: DX Procedure: CHEST PA AND LATERAL FINDINGS: No focal consolidation. Trace left base effusion. No pneumothorax. Cardiac silhouette is within normal limits. No acute fractures. RAD/Chest PA and Lateral IMPRESSION: No focal consolidations. Trace left base effusion, mildly decreased.. Reading Location: [id number]
== END | disposition home or self-care (01) ==
LOC: MTRAD 12:34
PROVIDERS: PCP Family Medicine; Referring Provider Family Medicine; Visit Provider Family Medicine
DX: J94.8 Other specified pleural conditions (principal)
CPT/HCPCS: 71046

== ENCOUNTER → 2025-08-17 | Outpatient (CLI) | payer MEDICARE, OTHER, SELFPAY ==
--- NOTE | 2025-08-17 10:42 | RAD_ITS ---
PROCEDURE: CHEST PA AND LATERAL 08/17/2025 REASON FOR EXAM: CHEST DISCOMFORT TECHNIQUE: Procedure Code: RADCXR Modality: DX Procedure: CHEST PA AND LATERAL COMPARISON: 08/11/25 FINDINGS: No focal consolidation. Mild left base effusion. No pneumothorax Cardiac silhouette is within normal limits. No acute fractures. IVC filter appears to be malpositioned, unchanged. RAD/Chest PA and Lateral IMPRESSION: No focal consolidation. New mild left base effusion. IVC filter appears to be malpositioned, unchanged. Reading Location: [id number]
== END | disposition home or self-care (01) ==
LOC: MTRAD 10:42
PROVIDERS: PCP Family Medicine; Referring Provider Family Medicine; Visit Provider Family Medicine
DX: J94.8 Other specified pleural conditions (principal)
CPT/HCPCS: 71046

== ENCOUNTER → 2025-08-21 | Outpatient (CLI) | payer MEDICARE, OTHER, SELFPAY ==
--- NOTE | 2025-08-21 11:54 | RAD_ITS ---
PROCEDURE: CHEST PA AND LATERAL 08/21/2025 REASON FOR EXAM: SOB TECHNIQUE: Procedure Code: RADCXR Modality: DX Procedure: CHEST PA AND LATERAL COMPARISON: 08/17/2025 FINDINGS: Hardware: None Heart: Stable borderline cardiomegaly. Mediastinum: The mediastinal contour is unremarkable. Lungs: Chronic interstitial changes in both lung dobson. The right lung remains clear. Previously described opacifications in the left lingula and costophrenic angle are unchanged suggesting a likely combination of effusion atelectasis and or infiltrate. Follow-up recommended to ensure resolution. Bones: Degenerative bony changes RAD/Chest PA and Lateral IMPRESSION: Persistent evidence of opacifications in the lingula and left costophrenic angl e, a likely combination of effusion atelectasis and infiltrate. Follow-up recommended to ensure complete resolution. Little s ignificant change or improvement since the previous study Right lung is clear Stable borderline cardiomegaly Reading Location: [id number]
== END | disposition home or self-care (01) ==
LOC: RAD 11:47
PROVIDERS: PCP Family Medicine; Referring Provider Family Medicine; Visit Provider Family Medicine
DX: R06.02 Shortness of breath (principal)
CPT/HCPCS: 71046